=== PATIENT | female | born 1945 | race Hispanic/Latino ===

== ENCOUNTER 2019-02-16 15:32 | Emergency (ER) | payer MEDICARE ==
[~2019-02-16] VITALS: Ht 162.6 cm; Wt 59.0 kg
[2019-02-16 16:31] LABS: BASOPHILS % 0.5 % (0.0-1.0); EOSINOPHILS # (AUTO) 0.2 (0.0-0.4); HEMATOCRIT 27.6 % (34.2-44.1); HEMOGLOBIN 8.2 g/dL (12.0-16.0); LYMPHOCYTES # (AUTO) 1.2 (1.0-3.2); LYMPHOCYTES % 21.9 % (18.0-39.1); MEAN CORPUSCULAR HEMOGLOBIN 21.1 pg (28-32); MEAN CORPUSCULAR HGB CONC 29.7 g/dL (31-35); MEAN CORPUSCULAR VOLUME 71.1 fL (81-99); MONOCYTES # (AUTO) 0.4 (0.2-0.8); MONOCYTES % 6.9 % (4.4-11.3); NEUTROPHILS # (AUTO) 3.6 (2.1-6.9); NEUTROPHILS % 66.3 % (38.7-80.0); PLATELET COUNT 170 x10e3/uL (140-360); RED BLOOD COUNT 3.88 x10e6/uL (3.6-5.1); RED CELL DISTRIBUTION WIDTH 18.6 % (11.7-14.4)
[2019-02-16 16:41] LABS: INR 2.04; PROTHROMBIN TIME 23.7 seconds (11.9-14.5)
[2019-02-16 16:42] LABS: PARTIAL THROMBOPLASTIN TIME 48.6 seconds (23.8-35.5)
[2019-02-16 16:49] LABS: ALBUMIN 3.9 g/dL (3.5-5.0); ANION GAP 13.6 mmol/L (8-16); CALCIUM 9.7 mg/dL (8.4-10.2); CREATININE, SERUM 1.02 mg/dL (0.57-1.11); POTASSIUM 4.6 mmol/L (3.5-5.1)
[2019-02-16] MEDS ORDERED: FERROUS SULFAT325 MG PO (17:00)
[2019-02-16 18:03] VITALS: BP 124/69
== END 2019-02-16 18:05 | disposition home or self-care (01) ==
LOC: ER 15:32
DX: D50.0 Iron deficiency anemia secondary to blood loss (chronic) (principal); I10 Essential (primary) hypertension; E11.9 Type 2 diabetes mellitus without complications; Z95.810 Presence of automatic (implantable) cardiac defibrillator
CPT/HCPCS: 36415; 80053; 85025; 85610; 85730; 99283

== ENCOUNTER 2019-12-24 14:34 | Inpatient (IN) | payer MEDICARE, OTHER ==
[~2019-12-24] VITALS: Ht 162.6 cm; Wt 54.4 kg
[~2019-12-24 14:34] MED LIST: FERROUS SULFAT325 MG PO
[2019-12-24] MEDS ORDERED: SODIUM CHLORIDE 0.9% 1000ML 1,000 ML IV STA (14:56)
[2019-12-24] MEDS ORDERED: PANTOPRAZOLE 40 MG 10ML VIAL IV NR (15:00)
[2019-12-24] MEDS ORDERED: CEFTRIAXONE SOD 1 GM VIAL IV NR (15:00)
--- NOTE | 2019-12-24 15:06 | Emergency Department Note ---
History of Present Illnes History of Present Illness Chief Complaint: Abdominal Complaints History of Present Illness This is a 74 year old female hx of iron deficiency anemia due to probable IRON deficiency, on coudmadin for chf and afib, sent over from the GI Dr Li Katz clinic for looking pale. Patient denies throwing up blood or dark stool. She threw u her Ensure drinks on arrival Past Medical History Hypertension, Diabetes, CVA, A-Fib, Anemia, Hyperlipidemia Past Surgical History: Cholecystectomy, Pacer/AICD Other Surgery PACEMAKER VALVE REPLACEMENT UTERINE MASS . Historian: Patient, Family Member Arrival Mode: Car Crop Scout Required: No Onset (how long ago): day(s) Radiation: Reports non-radiation Severity: moderate Onset quality: gradual Duration (how long): day(s) Timing of current episode: intermittent Progression: waxing and waning Relieving factors: none Exacerbating factors: none Associated symptoms: Reports denies other symptoms Past Medical/Family History Physician Review I have reviewed the patient's past medical and family history. Any updates have been documented here. Past Medical History Recent Fever: No Clinical Suspicion of Infectio: No New/Unexplained Change in Ment: No Past Medical History: Hypertension, Diabetes, CVA, A-Fib, Anemia, Hyperlip edemia Past Surgical History: Cholecysctectomy, Pacer/AICD Other Surgery: PACEMAKER VALVE REPLACEMENT UTERINE MASS Social History Smoking Cessation: Never Smoker Any Illegal Drug Use: No Family History Family history of heart diseas: No Other Last Tetanus: UNKNOWN Any Pre-Existing Lines (PICC,: No Review of Systems Review of Systems Constitutional: Reports weakness EENTM: Reports no symptoms Cardiovascular: Reports no symptoms Respiratory: Reports no symptoms Gastrointestinal: Reports as per HPI, Reports abdominal pain, Reports nausea, Reports vomiting, Reports other Genitourinary: Reports no symptoms Musculoskeletal: Reports no symptoms Integumentary: Reports no symptoms Neurological: Reports no symptoms Psychological: Reports no symptoms Endocrine: Reports no symptoms Hematological/Lymphatic: Reports no symptoms Physical Exam Related Data Allergies: Coded Allergies: No Known Allergies (Unverified , 02/16/19) Physical Exam CONSTITUTIONAL Constitutional: Present well-developed, Present cachectic, Present diaphoretic, Present distressed, Present other (looks pale) HENT HENT: Present normocephalic, Present atraumatic, Present oropharynx clear/mo ist, Present mucosae dry, Present nose normal HENT L/R: Present left ext ear normal, Present right ext ear normal EYES Eyes: Reports PERRL, Reports conjunctivae normal NECK Neck: Present ROM normal PULMONARY Pulmonary: Present effort normal, Present breath sounds normal CARDIOVASCULAR Cardiovascular: Present regular rhythm, Present heart sounds normal, Present capillary refill normal, Present normal rate GASTROINTESTINAL Abdominal: Present soft, Present bowel sounds normal, Present tender, Present other (rectal exam: stool dark and occult blood test positive) GENITOURINARY Genitourinary: Present exam deferred, Present guaiac result (positive) SKIN Skin: Present warm, Present dry MUSCULOSKELETAL Musculoskeletal: Present ROM normal, Present other (wasted muscle) NEUROLOGICAL Neurological: Present alert, Present oriented x 3, Present no gross motor or sensory deficits PSYCHOLOGICAL Psychological: Present mood/affect normal, Present judgement normal Results Laboratory Lab results reviewed: Yes Laboratory comments hgb 3.8. anemia Critical Care Time Total Critical Care Time (min): 50 Time ED Physician saw patient: 15:20 Critical care time exclusive o: treating other patients Critcal care necessary due to: circulatory failure, shock, other (CC for severe anemia, hypovolemic shock, tx with IV Fluid, PPI, IV Rocephin, Vit K, blood transfusion. ) Critcal care time spent by me: develop tx plan w patient/surrogate, discussion w consultants, discussion w primary provider, evaluation patient response to tx, examination of patient, obtaining hx from patient/surrogate, order/perform tx or interventions, order/review laboratory studies, re-evaluation of patient condition, review of old charts Assessment & Plan Medical Decision Making MDM upper GI bleed, gastric ulcer vs vaginal spotting Reassessment Reassessment time: 17:02 Reassessment Blood pressure is low 87/48 Assessment & Plan Final Impression: (1) Hypovolemic shock (2) Abdominal pain (3) Anemia associated with acute blood loss (4) Microcytic anemia (5) Coagulopathy Depart Disposition: ADMITTED Home Meds Active Scripts Ferrous Sulfate (FERROUS SULFATE) 325 Mg Tablet, 325 MG PO DAILY for 30 Days, #30 Prov:MICHELLE SAMPSON DO 02/16/19 Physician Attestation Provider Attestation case discussed with Dr Roe and Dr Li Katz and CANDE Walker MD Dec 24, 2019 15:06
[2019-12-24] MEDS ORDERED: ONDANSETRON HCL INJ 2MG/ML 2ML 2 MG/ML VIAL ONE (16:18)
[2019-12-24] MEDS ORDERED: SODIUM CHLORIDE 0.9% 1000ML 1,000 ML ONE (16:19)
[2019-12-24] MEDS ORDERED: CEFTRIAXONE SOD 1 GM VIAL ONE (16:19)
[2019-12-24] MEDS ORDERED: PANTOPRAZOLE 40 MG 10ML VIAL ONE ×2 (16:19→16:32)
[2019-12-24 16:25] LABS: BASOPHILS % 0.3 % (0.0-1.0); EOSINOPHILS % 0.2 % (0.0-6.0); LYMPHOCYTES # (AUTO) 3.5 (1.0-3.2); LYMPHOCYTES % 28.8 % (18.0-39.1); MEAN CORPUSCULAR HEMOGLOBIN 21.6 pg (28-32); MEAN CORPUSCULAR HGB CONC 27.7 g/dL (31-35); MEAN CORPUSCULAR VOLUME 77.8 fL (81-99); MONOCYTES # (AUTO) 0.9 (0.2-0.8); MONOCYTES % 7.3 % (4.4-11.3); NEUTROPHILS # (AUTO) 7.6 (2.1-6.9); NEUTROPHILS % 62.5 % (38.7-80.0); PLATELET COUNT 355 x10e3/uL (140-360); RED BLOOD COUNT 1.76 x10e6/uL (3.6-5.1); RED CELL DISTRIBUTION WIDTH 24.1 % (11.7-14.4)
[2019-12-24] MEDS ORDERED: ONDANSETRON HCL INJ 2MG/ML 2ML 2 MG/ML VIAL IV PRN (16:30)
[2019-12-24 16:41] LABS: HEMATOCRIT 13.7 % (34.2-44.1); HEMOGLOBIN 3.8 g/dL (12.0-16.0)
--- NOTE | 2019-12-24 16:50 | NUR ---
REPORTED TO DR [facility] HGB 3.8 HCT 13.7
[2019-12-24] MEDS ORDERED: PHYTONADIONE 10 MG/ML AMP SQ ONE (17:00)
[2019-12-24] MEDS ORDERED: SODIUM CHLORIDE 0.9% 250ML 250 ML IV ONE ×3 (17:15→21:00)
[2019-12-24] MEDS ORDERED: DIPHENHYDRAMINE HCL INJ 50 MG/ML VIAL IV ONE (17:15)
[2019-12-24] MEDS ORDERED: ACETAMINOPHEN 325 MG TAB PO ONE (17:15)
[2019-12-24] MEDS ORDERED: FUROSEMIDE INJ 10 MG/ML 4 ML VIAL IV PRN (17:15)
[2019-12-24] MEDS ORDERED: SODIUM CHLORIDE FLUSH 10 ML SYR INJ PRN (17:15)
[2019-12-24] MEDS ORDERED: FUROSEMIDE INJ 10 MG/ML 2 ML VIAL IV ONE (17:15)
[2019-12-24 18:59] LABS: HEMATOCRIT 10.8 % (34.2-44.1); HEMOGLOBIN 3.1 g/dL (12.0-16.0)
--- NOTE | 2019-12-24 19:46 | NUR ---
blood transfusion started
--- NOTE | 2019-12-24 20:26 | NUR ---
tolerating transfusion
[2019-12-24] MEDS ORDERED: SODIUM CHLORIDE 0.9% 250ML 250 ML ONE ×3 (21:19→22:48)
--- NOTE | 2019-12-24 21:20 | NUR ---
2nd unit of blood started
[2019-12-24 21:55] LABS: PARTIAL THROMBOPLASTIN TIME 76.6 seconds (23.8-35.5)
[2019-12-24 21:57] LABS: INR 6.84; PROTHROMBIN TIME 64.6 seconds (11.9-14.5)
--- NOTE | 2019-12-24 22:10 | NUR ---
ANT TYLER, DR. CRAMER SPEAKING TO DR. Elías AMADOR TO CLARIFY ORDER FOR PLASMA; PER DR. CRAMER, ORDER FOR 2 JUMBO BAGS OF FFP TO BE ADMINISTERED FOR ELEVATED INR PER DR. Elías AMADOR. VERIFIED BY THIS RN
--- NOTE | 2019-12-24 23:07 | NUR ---
ffp finished. pt tolerated well
[2019-12-25] VITALS (9 sets, daily range): BP systolic 118–134; BP diastolic 57–73
--- NOTE | 2019-12-25 00:05 | NUR ---
ORDER CLARIFICATION-SPOKE WITH ATTENDING MOISE REGARDING ALL UNITS OF BLOOD TO BE GIVEN. 4 UNITS OF RBCS AND 2 JUMBO UNITS OF PLASMA.
[2019-12-25] MEDS ORDERED: SODIUM CHLORIDE 0.9% 250ML 250 ML ONE ×2 (00:06→04:59)
--- NOTE | 2019-12-25 00:59 | NUR ---
REPORT RECIEVED IN FULL FROM [facility]CO AT THIS TIME
[2019-12-25] MEDS ORDERED: PANTOPRAZOLE 40 MG 10ML VIAL IV STA (03:46)
--- NOTE | 2019-12-25 04:14 | NUR ---
PATIENT DEPARTED THIS ED AT 033
[2019-12-25] MEDS ORDERED: PANTOPRAZOLE 40 MG 10ML VIAL ONE (04:19)
[2019-12-25] MEDS ORDERED: PANTOPRAZOL 40MG/SOD CHL 0.9% 50 ML IV ONE (04:25)
[2019-12-25 05:24] LABS: FERRITIN 43.03 ng/mL (4.63-204.00)
[2019-12-25] MEDS: PANTOPRAZOLE INJ 40 MG in SODIUM CHLORIDE 0.9% 50ML 50 ML IV SCH ×4 (05:31→23:14)
[2019-12-25] MEDS ORDERED: DONNATAL/LIDOCAINE/MAALOX 30 ML SUSP PO ONE (05:45)
--- NOTE | 2019-12-25 06:21 | NUR ---
SPOKE WITH PATIENT'S DAUGHTER BHARGAVI AND ED BLOOD TRANSFUSIONS AND PLASMA AT THIS POINT AND THAT PER DR AMADOR THEY MIGHT DO AN EGD AND DAUGHTER STATES THAT THEY HAVE WANTED HER TO DO EGD FOR A WHILE DUE TO STOMACH PAINS AND THAT CARDIOLOGY AT [facility] WOULD NOT OK THE TEST. PT NORMAL CARDIO DR IS DR. BLAKE TROTTER ED PT WOULD HAVE TO GET CARDIO HERE TO CLEAR HER. ED DAUGHTER ABOUT PT HOME COUMADIN AND THEY CAN'T MISS CHECKING IT. ED PROTONIX DRIP, VIT K AND LAB RECHECK AT 11 AM. DAUGHTER WANTS CALLED ABOUT LABS AND ANY PROCEDURES. WILL CONT TO MONITOR. UPDATED MED LIST PER DAUGHTER'S LIST.
[2019-12-25] MEDS ORDERED: COUMADIN7.5 MG PO (06:43)
[2019-12-25] MEDS ORDERED: LANTUS 3ML100 UNITS/ SC (06:44)
[2019-12-25] MEDS ORDERED: COUMADIN5 MG PO (06:44)
[2019-12-25] MEDS ORDERED: METOPROLOL SUCC25 MG PO (06:48)
[2019-12-25] MEDS ORDERED: OMEPRAZOLE40 MG PO (06:48)
[2019-12-25] MEDS ORDERED: LIPITOR20 MG PO (06:48)
[2019-12-25] MEDS ORDERED: LASIX40 MG PO (06:48)
[2019-12-25] MEDS ORDERED: ASPIRIN CHEW81 MG PO (06:48)
[2019-12-25] MEDS ORDERED: CALCET TABLET1 EACH (06:48)
[2019-12-25] MEDS ORDERED: METFORMIN HCL500 M2 PO (06:48)
[2019-12-25] MEDS ORDERED: LEXAPRO10 MG PO (06:48)
[2019-12-25] MEDS ORDERED: CYMBALTA20 MG PO (06:48)
--- NOTE | 2019-12-25 06:58 | NUR ---
ATTEMPTED MULTIPLE TIMES TO CALL DR LOZANO OFFICE AND NO ANSWER WITH JUST A BUSY SIGNAL AND TRIED HER CELL PHONE AND WENT TO BUT VM BOX IS FULL SO UNABLE TO LEAVE A MESSAGE.
[2019-12-25] MEDS ORDERED: PANTOPRAZOLE 40 MG 10ML VIAL IV SCH (09:00)
[2019-12-25 09:30] LABS: MEAN CORPUSCULAR HEMOGLOBIN 25.3 pg (28-32); MEAN CORPUSCULAR HGB CONC 32.3 g/dL (31-35); MEAN CORPUSCULAR VOLUME 78.5 fL (81-99); PLATELET COUNT 177 x10e3/uL (140-360); RED BLOOD COUNT 2.37 x10e6/uL (3.6-5.1); RED CELL DISTRIBUTION WIDTH 18.8 % (11.7-14.4)
[2019-12-25 09:38] LABS: HEMATOCRIT 18.6 % (34.2-44.1)
[2019-12-25 09:45] LABS: ANION GAP 17.6 mmol/L (8-16); CALCIUM 8.2 mg/dL (8.4-10.2); CREATININE, SERUM 1.37 mg/dL (0.57-1.11); POTASSIUM 4.6 mmol/L (3.5-5.1)
[2019-12-25 10:46] LABS: BASOPHILS % 0.5 % (0.0-1.0); EOSINOPHILS # (AUTO) 0.1 (0.0-0.4); EOSINOPHILS % 1.2 % (0.0-6.0); HEMATOCRIT 23.1 % (34.2-44.1); HEMOGLOBIN 7.5 g/dL (12.0-16.0); LYMPHOCYTES # (AUTO) 0.9 (1.0-3.2); LYMPHOCYTES % 20.1 % (18.0-39.1); MEAN CORPUSCULAR HEMOGLOBIN 25.5 pg (28-32); MEAN CORPUSCULAR HGB CONC 32.5 g/dL (31-35); MEAN CORPUSCULAR VOLUME 78.6 fL (81-99); MONOCYTES # (AUTO) 0.4 (0.2-0.8); MONOCYTES % 10.2 % (4.4-11.3); NEUTROPHILS # (AUTO) 2.9 (2.1-6.9); NEUTROPHILS % 66.6 % (38.7-80.0); PLATELET COUNT 173 x10e3/uL (140-360); RED BLOOD COUNT 2.94 x10e6/uL (3.6-5.1); RED CELL DISTRIBUTION WIDTH 17.6 % (11.7-14.4)
[2019-12-25 11:12] LABS: ALBUMIN 3.1 g/dL (3.5-5.0); CREATININE, SERUM 1.26 mg/dL (0.57-1.11)
[2019-12-25 11:20] LABS: INR 1.78; PROTHROMBIN TIME 21.8 seconds (11.9-14.5)
[2019-12-25 11:28] LABS: BAND NEUTROPHILS % (MANUAL) 3 %; LYMPHOCYTES % (MANUAL) 18 % (19-48); MONOCYTES % (MANUAL) 6 % (3.4-9.0); NEUTROPHILS % (MANUAL) 73 % (40-74)
--- NOTE | 2019-12-25 12:19 | History and Physical ---
HISTORY OF PRESENT ILLNESS: Ms. Gamboa is a 74-year-old female with history of atrial fibrillation, cardiac pacemaker, diabetes, CVA, hypertension, hyperlipidemia, depression, who apparently went to see the GI doctor. She looked pale. They did a CBC. She looks to be very anemic, so she was sent to the emergency room. PAST MEDICAL HISTORY: She has history of atrial fibrillation, cardiac pacemaker, diabetes type 2, CVA, hypertension, hyperlipidemia, and depression. ALLERGIES: NO KNOWN DRUG ALLERGIES. PAST SURGICAL HISTORY: She had permanent pacemaker placed. She had a valve replacement. She had a uterine mass. SOCIAL HISTORY: She does not smoke and she does not drink. She lives at home with her family today. PHYSICAL EXAMINATION: GENERAL: Today, she is awake and alert. She is feeling a little better. Otherwise, she said, she was feeling very weak. VITAL SIGNS: Temperature is 98.5, blood pressure is 132/73. HEART: Irregularly irregular. LUNGS: Poor inspiratory effort. ABDOMEN: Soft. LABORATORY DATA: On the blood work; hemoglobin 3.1, hematocrit 10.8. The ones from today are pending. The coronavirus is pending. ASSESSMENT: 1. Hypovolemic shock. 2. Severe anemia due to blood loss. 3. Coagulopathy. 4. History of atrial fibrillation. 5. Permanent pacemaker. 6. Diabetes type 2 with hyperglycemia. 7. History of cerebrovascular accident. 8. Hyperlipidemia. 9. Hypertension. 10. Depression. PLAN: At the present time, with this patient, to continue to monitor CBC closely. Hold anticoagulation. She received fresh frozen plasma. She also received 4 units of packed red blood cells. Continue to monitor hemoglobin and hematocrit. Continue to monitor electrolytes. We placed a GI consult with Dr. Doug Katz. Critical care consult with Dr. Beck. 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 All this was discussed in extension with the patient. All questions were answered to satisfaction. MD CAMILLE Burgos/GLENN /[id number]
--- NOTE | 2019-12-25 18:15 | Consultation ---
DATE OF CONSULTATION: 12/25/2019 PULMONARY CRITICAL CARE CONSULTATION: CHIEF COMPLAINT: Anemia and heart disease. HISTORY OF PRESENT ILLNESS: The patient is a 74-year-old woman. She has a complicated cardiac history. She has a bioprosthetic mitral valve. She also has a bioprosthetic aortic valve that was placed with a TAVR procedure in 2019. She has decreased ejection fraction of 40% to 45%. She takes warfarin on a regular basis at home. Apparently, she went to see the GI doctor and was found to be pale and weak. She had a hemoglobin of 3.8. She required admission to the hospital and was received 4 units of blood. Her hemoglobin is now 7.5. She is possibly scheduled for endoscopy, although she is awaiting Cardiology clearance. PAST SURGICAL HISTORY: 1. Status post mitral valve replacement. 2. Status post bioprosthetic aortic valve. 3. Status post pacemaker. 4. Prior hysterectomy. PAST MEDICAL HISTORY: 1. Atrial fibrillation. 2. Chronic systolic congestive heart failure. 3. Diabetes. 4. Depression. 5. Hypertension. ALLERGIES: NO KNOWN DRUG ALLERGIES. SOCIAL HISTORY: The patient does not smoke or drink. REVIEW OF SYSTEMS: She has no headache. She is not complaining of fever or chest pain. There is no abdominal pain, nausea, or vomiting. She has no known bleeding. PHYSICAL EXAMINATION: VITAL SIGNS: The blood pressure is 134/58 and pulse is 63. HEENT: No facial swelling or erythema. CARDIAC: Regular rate and rhythm with a prosthetic 2nd heart sound. LUNGS: Auscultation of lungs reveals decreased breath sounds at the bases. There is no wheezing. ABDOMEN: Soft, nontender. There is no rebound or guarding. EXTREMITIES: There is no leg edema or calf tenderness. There is no cyanosis or clubbing. SKIN: No rashes. NEUROLOGICAL: The patient seems to be diffusely weak. LABORATORY DATA: BUN to creatinine ratio is 79-1.36. Other electrolytes are within normal limits. Total bilirubin is 1.5. Albumin is 3.1. Hemoglobin is 7.5, white blood cell count is 4.33. The platelet count is 173. IMPRESSION: 1. Anemia secondary to chronic blood loss. 2. Chronic systolic congestive heart failure. 3. Chronic atrial fibrillation. 4. Prosthetic mitral valve. 5. Prior cerebrovascular accident. 6. Diabetes. PLAN: 1. Continue to monitor blood counts and coag studies. Transfuse additional blood or FFP as needed. 2. Await additional input from Cardiology. She will need to be restarted on heparin as soon as possible because of her bioprosthetic valve. 3. Consider endoscopic evaluation by GI. 4. Monitor and control blood sugars. 5. Dr. Beck will return tomorrow and will take over for any Pulmonary Critical Care needs. Jamie Edward MD [facility]/MODL /[id number]
--- NOTE | 2019-12-25 19:00 | NUR ---
reports received from previous nurse Remedios RN, she talked to dr Reyez and dr Li roque, including the reports, Echo order was cancelled, patient is on Full liquid diet until midnight.
--- OUTSIDE RECORDS SUMMARY | 2019-12-25 20:47 | XMS REPORT | Summary of Care ---
Author Author [facility] Organization [facility] Address Unknown Phone Unavailable Encounter CONTRERAS Gray(FIN) [id number] Date(s): 04/03/18 - 04/03/18 [facility] [address] [id number]- Discharge Disposition: Home or Self Care Attending Physician: Mohini Dee MD Vital Signs Most recent to 1 oldest [Reference Range]: Height 160.02 cm (04/03/18 10:53 AM) Temperature Oral 98.0 DegF [96.4-99.1 DegF] (04/03/18 10:53 AM) Blood Pressure 122/64 mmHg [90-140/60-90 mmHg] (04/03/18 10:53 AM) Respiratory Rate 14 BRMIN [14-20 BRMIN] (04/03/18 10:53 AM) Peripheral Pulse 60 bpm Rate [60-100 bpm] (04/03/18 10:53 AM) Weight 63.239 kg (04/03/18 10:53 AM) Body Mass Index 24.7 m2 (04/03/18 10:53 AM) Problem List Condition Effective Dates Status Health Status Informan t Acute cystitis1 07/13/13 Resolved Anemia2 01/04/14 Active Anemia(Confirmed) Active Aortic valve 12/03/14 Active stenosis(Confirmed)3 Bleeding skin4 12/07/14 Active Atrial fibrillation, Active chronic(Confirmed) 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(Confirmed) CVA (cerebral Resolved vascular accident)(Confirmed) Dental abscess5 10/13/13 Resolved Diabetes(Confirmed) Resolved Bilateral leg Active edema(Confirmed) Essential 05/27/59 Active hypertension(Confirm ed)6 H/O: CVA(Confirmed)7 05/27/59 Active H/O mitral valve Active replacement(Confirme d) Hypertension(Confirm Resolved ed) Insomnia8 03/09/14 Active Insomnia(Confirmed) Resolved Left 04/28/14 Active hemiparesis(Confirme d)9 Major depressive 03/09/14 Active disorder(Confirmed)1 0 Mitral valve 01/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)1 1 Hyperlipemia, Active mixed(Confirmed) [id number] 03/09/14 Active Osteoarthritis(Confi Active rmed) Postmenopausal 09/01/13 Active state13 Screening - health 08/17/14 Resolved check14, 15 Type 2 diabetes 05/27/59 Active mellitus(Confirmed)1 6 Urinary 03/03/13 Active [id number] Urinary tract 04/28/14 Resolved infectious [id number] On warfarin Active therapy(Confirmed) 1Data migrated from [employer] on 12/11/14. 2Data migrated from [employer] on 10/23/14. 3Data migrated from [employer] on 12/29/14. 4Data migrated from [employer] on 12/29/14. 5Data migrated from [employer] on 12/11/14. 6Data migrated from [employer] on 10/23/14. 7Data migrated from [employer] on 10/23/14. 8Data migrated from [employer] on 10/23/14. 9Data migrated from [employer] on 10/23/14. 10Data migrated from [employer] on 10/23/14. 11Data migrated from [employer] on 10/23/14. 12Data migrated from [employer] on 10/23/14. 13Data migrated from [employer] on 10/23/14. 14Data migrated from [employer] on 12/01/14. 15Data migrated from [employer] on 10/26/14. 16Data migrated from [employer] on 10/23/14. 17Data migrated from [employer] on 10/23/14. 18Data migrated from [employer] on 12/11/14. Allergies, Adverse Reactions, Alerts No Known Medication Allergies Medications No Known Medications Results No data available for this section Immunizations Given and Recorded Vaccine Date Status Refusal Reason influenza virus vaccine, inactivated 02/18/18 G iven influenza virus vaccine, inactivated1 04/03/17 Given influenza virus vaccine, inactivated 03/01/16 G iven influenza virus vaccine, inactivated2 03/09/14 Given influenza virus vaccine, inactivated3 03/03/13 Given influenza virus vaccine, inactivated 07/09/08 G iven pneumococcal 23-valent vaccine4 09/01/13 Given Not Given Vaccine Date Status Refusal Reason pneumococcal 13-valent vaccine 02/26/18 Not Given Patient Refuses 1Result Comment: Patient waited 15 min with no reaction 2Result Comment: fluzone high dose [[id number]]. Migrated from OBS ; Data migrated from [employer] on 06/28/2015. 3Result Comment: fluzone (>3 yrs.) [[id number]]. Migrated from OBS ; Data migrated from [employer] on 06/28/2015. 4Result Comment: pneumovax 23 [[id number]]. Migrated from OBS VIS: Pneumovax 23: 03/01/09 ; Data migrated from [employer] on 06/28/2015. Procedures Procedure Date Related Diagnosis Body Site Status Diabetic retinopathy screening1 02/08/17 Comple pita Mitral valve operation2 2011 Completed Cardiac pacemaker procedure Completed Cholecystectomy Completed Operation on uterus3 Completed 1Barcacel, OD 2replacement at [facility] 3tumor removed Social History Social History Type Response Substance Abuse Use: None. Alcohol Never Smoking Status Never smoker; Exposure to T obacco Smoke None; Cigarette Smoking Last 365 Days Yes; Reg Smoking Cessation National Secretary ing No entered on: 09/03/18 Assessment and Plan No data available for this section
--- OUTSIDE RECORDS SUMMARY | 2019-12-25 20:47 | XMS REPORT | Continuity of Care Document ---
Author Author Arcadio Conformity KAREN Doty Organization [employer] Address Unknown Phone Unavailable Care Team Providers Care Service Aide Name Role Phone [employer] Unavailable Un available Problems Problem Status Onset Date Classification Date Reported Comments Source R05 - COUGH Active 10/05/2019 [facility] [place] ACUTE EXACERBATION OF CHF, CHEST PAIN Active 07/06/2019 [facility] SOB Active 0 07/06/2019 [facility] Z95.2 Active 04/30/2019 [facility] PREADMIT / TAVR / MAC / TTE Ac tive 04/14/2019 [facility] PREADMIT/TAVR W/ SENTINEL/ MAC/TTE Active 03/23/2019 [facility] AORTIC STENOSIS Active 03/20/2019 [facility] LT HEART CATH, FEMORAL APPROACH Active 03/04/2019 [facility] Unspecified injury of head, initial encounter 01/30/2019 02/01/2019 [facility] FALL Active 01/30/2019 [facility] Paresthesia of skin 03/05/2018 09/15/2018 [facility] WEAKNESS Active 02/25/2018 [facility] GENERAL WEAKNESS, PARESTHESIAS/NUMBNESS Active 02/25/2018 [facility] SCREENING Active 04/05/2017 [facility] Bleeding skin (finding) Active 12/07/2014 Problem 12/20/2019 Data migrated from [employer] on . [facility] ,[facility] [place] Aortic valve stenosis (disorder) Active 12/03/2014 Problem 12/20/2019 Data migrated from [place] [facility] . [facility] ,[facility], [facility] [place] FEVER/VOMITTING Active 11/28/2014 [facility] ACUTE CHF EXACERBATION Active 11/28/2014 [facility] Screening - health check (procedure) Resolved 08/17/2014 Problem 12/20/2019 Data migrated from [employer] [facility] . Data migrated from [employer] on 10/26/14. [facility], [facility] [place] Left hemiparesis (disorder) Ac tive 04/28/2014 Problem 12/20/2019 Data migrated from [employer] on 10/23. [facility] ,[facility], [facility] [place] Urinary tract infectious disease (disorder) Resolved 04/28/2014 Problem 12/20/2019 Data migrated from [employer] on 12/11/14. [facility] ,[facility], [facility] [place] Insomnia (disorder) Active 03/09/2014 Problem 12/20/2019 Data migrated from [employer] on 10/23. [facility] ,[facility], [facility] [place] Major depressive disorder (disorder) Active 03/09/2014 Problem 12/20/2019 Data migrated from [employer] on 10/23. [facility] ,[facility], [facility] [place] Osteoarthritis (disorder) Acti ve 03/09/2014 Problem 12/20/2019 Data migrated from [employer] on 10/23. [facility] ,[facility], [facility] [place] Replacement of mitral valve (procedure) Active 03/09/2014 Problem 12/04/2014 12Data migrated fro m [employer] on 10/23/14. [facility] Anemia (disorder) Active 01/04/2014 Problem 12/20/2019 Data migrated from [employer] on 10/23. [facility] ,[facility], [facility] [place] Dental abscess (disorder) Reso lved 10/13/2013 Problem 12/20/2019 Data migrated from [employer] on 12/11. [facility] ,[facility], [facility] [place] V49.81ASYMPTOMATIC MENOPAUSAL STATE Active 09/03/2013 [facility] Postmenopausal state (finding) Active 09/01/2013 Problem 12/20/2019 Data migrated from [employer] on 10/23. [facility] ,[facility], [facility] [place] Acute cystitis (disorder) Reso lved 07/13/2013 Problem 12/20/2019 Data migrated from [employer] on 12/11. [facility] ,[facility], [facility] [place] Urinary incontinence (finding) Active 03/03/2013 Problem 12/20/2019 Data migrated from [employer] on 10/23. [facility] ,[facility], [facility] [place] Mitral valve stenosis (disorder) Active 01/20/2013 Problem 12/20/2019 Data migrated from [employer] on 10/23. [facility] ,[facility], [facility] [place] Atrial fibrillation (disorder) Active 01/20/2013 Problem 12/04/2014 2Data migrated from [employer] on 09/26 . [facility] ABNORMAL LABS Active 10/03/2012 [facility] ABDOMEN PAIN Active 09/04/2012 [facility] V76.51/V72.83/564.00/789.06 Ac tive 02/23/2011 [facility] UNK Active 0 02/23/2011 [facility] ROUTINE Active 02/02/2011 [facility] Essential hypertension (disorder) Active 05/27/1959 Problem 12/20/2019 Data migrated from [employer] on 10/23. [facility] ,[facility], [facility] [place] History of - CVA (context-dependent category) Active 05/27/1959 Problem 12/20/2019 Data migrated from [employer] on 10/23/14. [facility] ,[facility], [facility] [place] Diabetes mellitus type 2 (disorder) Active 05/27/1959 Problem 12/20/2019 Data migrated from [employer] on 10/23. [facility] ,[facility], [facility] [place] Hyperlipidemia (disorder) Acti ve 05/27/1959 Problem 12/04/2014 5Data migrated from [employer] on 09/26 . [facility] Chronic atrial fibrillation (disorder) Active Problem [facility], [facility] [place] Cerebrovascular accident (disorder) Resolved Problem [facility], [facility] [place] Diabetes mellitus (disorder) R esolved Problem [facility], [facility] [place] History of mitral valve replacement (situation) Active Problem 12/20/2019 [facility] [place] Hypertensive disorder, systemic arterial (disorder) Resolved Problem 12/20/2019 [facility], [facility] [place] Mixed hyperlipidemia (disorder) Active Problem [facility] [place] Warfarin therapy started (regime/therapy) Active Problem 12/20/2019 [facility], [facility] [place] Encounter for screening mammogram for ma lignant neoplasm of breast 05/17/2017 [facility] 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) Active Prob leah 12/20/2019 [facility] [place] Edema of lower extremity (finding) Active Problem [facility], [facility] [place] Final: 12/04/2014 [facility] 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 09/15/2018 [facility] Hypertensive heart disease with heart failure 09/15/2018 [facility] Chronic combined systolic (congestive) a nd diastolic (congestive) heart failure 09/15/2018 [facility] Presence of cardiac pacemaker 09/15/2018 [facility] Presence of prosthetic heart valve 09/15/2018 [facility] Type 2 diabetes mellitus without complications 09/15/2018 [facility] Chronic atrial fibrillation 09/15/2018 [facility] Hypothyroidism, unspecified 09/15/2018 [facility] Mixed hyperlipidemia 09/15/2018 [facility] Major depressive disorder, single episode, unspecified 09/15/2018 [facility] Rheumatic disorders of both mitral and aortic valves 09/15/2018 [facility] Unspecified osteoarthritis, unspecified site 09/15/2018 [facility] dominatrix (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 09/15/2018 [facility] longterm (current) use of anticoagulants 09/15/2018 [facility] longterm (current) use of aspirin 09/15/2018 [facility] Other skilled nursing (current) drug therapy 09/15/2018 [facility] CHF NOS Active [facility] HEART FAILURE, UNSPECIFIED Act kash [facility] CHEST PAIN, UNSPECIFIED Active [facility] Medications Medication Details Route Status Patient Instructions Ordering Provider Order Date Source Warfarin Notes: Nurse to ur e documentation of patient education per anticoagulation policy. Avoid large intake of vitamin-K containing foods diet. (Same As: Coumadin) WASTE: F/P - P Waste Black; E - P Waste Black Hazardous Drug Group 3:Reproductive risk Hazardous Drug -- Refer to safe handling procedure PPE Matrix No Longer Active 07/08/2019 [facility] Furosemide 40 mg, Route: IVP, Drug form: INJ, Daily, Dosing Weight 60.909, kg, Start date: 07/08/19 9:00:00 CONDITIONING MACHINE OPERATOR, Duration: 30 day, Stop date: 08/06/19 9:00:00 CDT No Longer Active 07/08/2019 [facility] 3 ML Insulin Glargine 100 UNT/ML Prefill ed Syringe [Lantus] Notes: (Same as: Lantus) Do not hold ins ulin without contacting prescriber WASTE: F/P - Black; E - Municipal Trash Bin "single patient use only" Stable for 28 days at room temperature Expires in days from Date Inactive 07/08/2019 [facility] latanoprost ophthalmic Notes: Keep refrigerated. (Same as:Xalatan) Opened bottle may be stored at room temperature for 6 weeks Inactive 07/08/2019 [facility] Warfarin 6 mg, 3 tab, Route: P O, Drug form: TAB, Q5PM, Dosing Weight 60.909, kg, Start date: 07/07/19 17:00:00 CONDITIONING MACHINE OPERATOR, Duration: 1 doses or times, Stop date: 07/07/19 17:00:00 CONDITIONING MACHINE OPERATOR, 0 Inactive 07/07/2019 [facility] Furosemide Notes: (Same as: Toya merino) MEDICATION WASTE Product Size: 40 mg Product Wasted: ___ mg Inactive 07/07/2019 [facility] travoprost 0.04 MG/ML Ophthalmic Solution [Travatan] 1 drp, Route: OPTH, Drug Form: SOLN, Dosing Weight 60.909, kg, QPM, Start date: 07/07/19 17:00:00 CONDITIONING MACHINE OPERATOR, Duration: 30 day, Stop date: 08/05/19 17:00:00 CDT Inactive 07/07/2019 [facility] Potassium Chloride Notes: (Gavino e as: K-Dur 20) "Do Not Crush" Give with food and full glass of water For patients unable to swallow tablet, dissolve in one half glass of water. Allow about 2 minutes for the tab lets to disintegrate. Stir before giving to prepare slurry and administer. Please exclude Patients with feeding tube less than 14 Prydeinig (Dobhoff, J-tube etc) and pediatric and patients. Inactive 07/07/2019 [facility] Magnesium Sulfate Notes: WASTE : F/P - Sink; E - Municipal Trash Bin Inactive 07/07/2019 [facility] Saline Flush 0.9% Notes: (Same as: BD Posiflush) Inactive 07/07/2019 [facility] atorvastatin Notes: (Same As: Lipitor) Inactive 07/07/2019 [facility] Calcium Carbonate 1500 MG / Cholecalcife rol 400 UNT Oral Tablet Notes: (Same As: Michael-D, OsCal-D, Oyste r Calcium) Inactive 07/07/2019 [facility] Digoxin 0.125 MG Oral Tablet N otes: Take on an Empty Stomach (Same as: Lanoxin) Inactive 07/07/2019 [facility] Escitalopram Notes: (Same as: Lexapro) Inactive 07/07/2019 [facility] ferrous sulfate Notes: Give wi th food. "Do Not Crush" Inactive 07/07/2019 [facility] Losartan Notes: (Same as: Coza ar) Inactive 07/07/2019 [facility] metoprolol tartrate Notes: (Sa me as: Lopressor) Inactive 07/07/2019 [facility] Omeprazole 40 mg, 1 cap, Route : PO, Drug form: DRC, Daily, Dosing Weight 60.909, kg, Start date: 07/07/19 9:00:00 CONDITIONING MACHINE OPERATOR, Duration: 30 day, Stop date: 08/05/19 9:00:00 CDT Inactive 07/07/2019 [facility] prednisolone Notes: (Same as: Pred Forte) Inactive 07/07/2019 [facility] Protonix Notes: Tablet should not be chewed or crushed. (Same as: Protonix) Inactive 07/07/2019 [facility] Aspirin 81 MG Enteric Coated Tablet Notes: Do not crush or chew. (Same As: Ecotrin) Inactive 07/07/2019 [facility] Lasix Notes: (Same as: Lasix) MEDICATION WASTE Product Size: 40 mg Product Wasted: ___ mg Inactive 07/07/2019 [facility] Dextrose 50% Syringe (D50W) 12 .5 gm, 25 mL, Route: IVP, Drug Form: INJ, Dosing Weight 60.909, kg, PRN, PRN Blood Glucose Results, Start date: 07/07/19 4:11:00 CONDITIONING MACHINE OPERATOR, Duration: 30 day, Stop date: 08/06/19 5:10:00 CDT, 0 Inactive 07/07/2019 [facility] Glucagon 1 mg, Route: IM, Drug form: PDR/INJ, PRN, Dosing Weight 60.909, kg, PRN Blood Glucose Results, Start date: 07/07/19 4:11:00 CONDITIONING MACHINE OPERATOR, Duration: 30 day, Stop date: 08/06/19 5:10:00 CDT, 0 Inactive 07/07/2019 [facility] Insulin Lispro Notes: (Same as : Humalog) Roll in palms of hands gently; Do not shake vigorously. WASTE: F/P - Black; E - Municipal Trash Bin Stable for 28 days at room temperature. Expires in days from Date Inactive 07/07/2019 [facility] Nitroglycerin Notes: (Same as: Nitroquick, Nitrostat) "Do Not Crush" Sublingual tablet Inactive 07/07/2019 [facility] Saline Flush 0.9% Notes: (Same as: BD Posiflush) Inactive 07/07/2019 [facility] Lovenox Notes: Nurse to ensure documentation of patient education per anticoagulation policy. (Same as: Lovenox) Inactive 05/02/2019 [facility] Coumadin Notes: Nurse to ensur e documentation of patient education per anticoagulation policy. Avoid large intake of vitamin-K containing foods diet. (Same As: Coumadin) WASTE: F/P - P Waste Black; E - P Waste Black Inactive 05/01/2019 [facility] travoprost 0.04 MG/ML Ophthalmic Solution [Travatan] 1 drp, Route: OPTH, Drug Form: SOLN, Dosing Weight 60.455, kg, QPM, Start date: 05/01/19 17:00:00 CONDITIONING MACHINE OPERATOR, Duration: 30 day, Stop date: 05/30/19 17:00:00 CONDITIONING MACHINE OPERATOR No Longer Active 05/01/2019 [facility] POLYETHYLENE GLYCOL 3350 Notes : Dissolve in 8 oz of water or juice. (Same as: Miralax) Inactive 05/01/2019 [facility] nter metoprolol extended release No teresa: (Same as: Toprol XL) Do Not Crush Inactive 05/01/2019 [facility] Aspirin 81 MG Enteric Coated Tablet Notes: Do not crush or chew. (Same As: Ecotrin) Inactive 05/01/2019 [facility] nter atorvastatin Notes: (Same As: Lipitor) Inactive 05/01/2019 [facility] Digoxin 0.125 MG Oral Tablet N otes: Take on an Empty Stomach (Same as: Lanoxin) Inactive 05/01/2019 [facility] nter Escitalopram Notes: (Same as: Lexapro) Inactive 05/01/2019 [facility] ferrous sulfate Notes: Give wi th food. "Do Not Crush" Inactive 05/01/2019 [facility] Losartan Notes: (Same as: Coza ar) Inactive 05/01/2019 [facility] Omeprazole 40 mg, Route: PO, D rug form: DRC, Daily, Dosing Weight 60.455, kg, Start date: 05/01/19 9:00:00 CONDITIONING MACHINE OPERATOR, Duration: 30 day, Stop date: 05/30/19 9:00:00 CONDITIONING MACHINE OPERATOR No Longer Active 05/01/2019 [facility] nter Warfarin Route: PO, Drug form: TAB, Q-M-W-F, Dosing Weight 60.455, kg, Start date: 05/01/19 9:00:00 CONDITIONING MACHINE OPERATOR, Duration: 30 day, Stop date: 05/29/19 9:00:00 CONDITIONING MACHINE OPERATOR No Longer Active 05/01/2019 [facility] nter prednisolone Notes: (Same as: Pred Forte) Inactive 05/01/2019 [facility] Insulin Glargine 15 unit, 0.15 mL, Route: SUB-Q, Drug form: SOLN, Daily, Dosing Weight 60.455, kg, Start date: 05/01/19 9:00:00 CONDITIONING MACHINE OPERATOR, Duration: 30 day, Stop date: 05/30/19 9:00:00 CONDITIONING MACHINE OPERATOR, 0 Inactive 05/01/2019 [facility] Protonix Notes: Tablet should not be chewed or crushed. (Same as: Protonix) Inactive 05/01/2019 [facility] Furosemide 40 MG Oral Tablet N otes: (Same as: Lasix) May cause GI upset. Give with food or milk. Inactive 05/01/2019 [facility] nter 24 HR Metoprolol Tartrate 25 MG Extended Release Tablet [Toprol] Notes: (Same as: Toprol XL) Do Not Crush Inactive 05/01/2019 [facility] nter Acetaminophen Notes: Do not ex ceed 4 gm/day. (Same as: Tylenol) Inactive 05/01/2019 [facility] ceFAZolin (SCIP) + sterile water 10 mL Notes: (Same As: Ancef, Kefzol) MEDICATION WASTE Product Size: 1000 mg Product Wasted: ___ mg Inactive 05/01/2019 [facility] Docusate Notes: (Same as: Cola ce) (Do Not Crush) No Longer Active 05/01/2019 [facility] latanoprost ophthalmic Notes: Keep refrigerated. (Same as:Xalatan) Opened bottle may be stored at room temperature for 6 weeks No Longer Active 05/01/2019 [facility] Warfarin Notes: Nurse to ensur e documentation of patient education per anticoagulation policy. Avoid large intake of vitamin-K containing foods diet. WASTE: F/P - P Waste Black; E - P Waste Black (Same As: Coumadin) Inactive 05/01/2019 [facility] Lovenox Notes: Nurse to ensure documentation of patient education per anticoagulation policy. (Same as: Lovenox) Inactive 05/01/2019 [facility] Dextrose 50% Syringe (D50W) 12 .5 gm, 25 mL, Route: IVP, Drug Form: INJ, Dosing Weight 60.455, kg, PRN, PRN Blood Glucose Results, Start date: 04/30/19 17:59:00 CONDITIONING MACHINE OPERATOR, Duration: 30 day, Stop date: 05/30/19 17:58:00 CONDITIONING MACHINE OPERATOR, 0 No Longer Active 04/30/2019 [facility] Glucagon 1 mg, Route: IM, Drug form: PDR/INJ, PRN, Dosing Weight 60.455, kg, PRN Blood Glucose Results, Start date: 04/30/19 17:59:00 CONDITIONING MACHINE OPERATOR, Duration: 30 day, Stop date: 05/30/19 17:58:00 CONDITIONING MACHINE OPERATOR, 0 No Longer Active 04/30/2019 [facility] Insulin Lispro Notes: (Same as : Humalog) Roll in palms of hands gently; Do not shake vigorously. WASTE: F/P - Black; E - Municipal Trash Bin Stable for 28 days at room temperature. Expires in days from Date No Longer Active 04/30/2019 [facility] nter protamine (ANES) Route: IV, Dr ug form: INJ, ONCE, Stop date: 04/30/19 16:59:00 CONDITIONING MACHINE OPERATOR Inactive 04/30/2019 [facility] nter Hydralazine 10 mg, Route: IVP, Q20Min, Dosing Weight 60.455, kg, PRN Elevated BP, Start date: 04/30/19 16:58:00 CONDITIONING MACHINE OPERATOR, Duration: 2 doses or times, Stop date: Limited # of times Inactive 04/30/2019 [facility] nter Metoprolol 1 mg, Route: IVP, Q 5Min, Dosing Weight 60.455, kg, PRN Other -See Comment, Start date: 04/30/19 16:58:00 CONDITIONING MACHINE OPERATOR, Duration: 5 doses or times, Stop date: Limited # of times Inactive 04/30/2019 [facility] nter Oxycodone 5 mg, Route: NG, Honorio g form: LIQ, Q4H, Dosing Weight 60.455, kg, PRN Pain Score 4-6, Start date: 04/30/19 16:58:00 CONDITIONING MACHINE OPERATOR, Duration: 30 day, Stop date: 05/30/19 16:57:00 CONDITIONING MACHINE OPERATOR Inactive 04/30/2019 [facility] Hydromorphone 0.5 mg, Route: I ACTUARY, Q5Min, Dosing Weight 60.455, kg, PRN Pain Score 7-10, Start date: 04/30/19 16:58:00 CONDITIONING MACHINE OPERATOR, Duration: 4 doses or times, Stop date: Limited # of times Inactive 04/30/2019 [facility] nter Fentanyl 50 microgram, Route: IVP, Q5Min, Dosing Weight 60.455, kg, PRN Pain Score 7-10, Priority: Routine, Start date: 04/30/19 16:58:00 CONDITIONING MACHINE OPERATOR, Duration: 2 doses or times, Stop date: Limited # of times Inactive 04/30/2019 [facility] Flumazenil 0.2 mg, Route: IVP, PRN, Dosing Weight 60.455, kg, PRN Benzodiazepine Reversal, Initial dose, Start date: 04/30/19 16:58:00 CONDITIONING MACHINE OPERATOR, Duration: 30 day, Stop date: 05/30/19 16:57:00 CONDITIONING MACHINE OPERATOR Inactive 04/30/2019 [facility] Naloxone 0.4 mg, Route: IVP, Q 2MIN, Dosing Weight 60.455, kg, PRN Narcotic Reversal, Start date: 04/30/19 16:58:00 CONDITIONING MACHINE OPERATOR, Duration: 8 doses or times, Stop date: Limited # of times Inactive 04/30/2019 [facility] Ondansetron 4 mg, Route: IVP, ONCE, Dosing Weight 60.455, kg, PRN Nausea & Vomiting, Start date: 04/30/19 16:58:00 CONDITIONING MACHINE OPERATOR Inactive 04/30/2019 [facility] heparin (ANES) Route: IV, Drug form: INJ, ONCE, Stop date: 04/30/19 16:43:00 CONDITIONING MACHINE OPERATOR Inactive 04/30/2019 [facility] phenylephrine (ANES) Route: IV , Drug form: INJ, ONCE, Stop date: 04/30/19 16:38:00 CONDITIONING MACHINE OPERATOR Inactive 04/30/2019 [facility] pantoprazole Notes: Tablet brinda uld not be chewed or crushed. (Same as: Protonix) N o Longer Active 04/30/2019 [facility] ceFAZolin (ANES) Route: IV, Dr ug form: INJ, ONCE, Stop date: 04/30/19 16:18:00 CONDITIONING MACHINE OPERATOR Inactive 04/30/2019 [facility] midazolam (ANES) Route: IV, Dr ug form: SOLN, ONCE, Stop date: 04/30/19 16:13:00 CONDITIONING MACHINE OPERATOR Inactive 04/30/2019 [facility] fentaNYL (ANES) Route: IV, Honorio g form: INJ, ONCE, Stop date: 04/30/19 16:13:00 CONDITIONING MACHINE OPERATOR Inactive 04/30/2019 [facility] Cefazolin Notes: (Same As: Anc ef, Kefzol) MEDICATION WASTE Product Size: 1000 mg Product Wasted: ___ mg Inactive 04/30/2019 [facility] propofol (ANES) 10 mg Route: I V, Drug form: INJ, Start date: 04/30/19 15:42:00 CONDITIONING MACHINE OPERATOR, Stop date: 04/30/19 16:42:00 CONDITIONING MACHINE OPERATOR Inactive 04/30/2019 [facility] Nicardipine Notes: Same as: Ca rdene Concentration: (0.2 mg /1 ml ) No Longer Active 04/30/2019 [facility] Acetaminophen Notes: Infuse ov er 15 minutes Do not exceed 4gm/day of acetaminophen MEDICATION WASTE Product Size: 1000 mg Product Wasted: ___ mg No Longer Active 04/30/2019 [facility] nter Ondansetron Notes: (Same as: Oseas heard) MEDICATION WASTE Product Size: 4 mg Product Wasted: ___ mg No Longer Active 04/30/2019 [facility] Sodium Chloride 0.9% (Bolus) IV 250 mL, 250 ml/hr, Infuse Over: 1 hr, Route: IV, 250, Drug form: INJ, ONCALL, Priority: Routine, Dosing Weight 61.364 kg, Start date: 04/30/19 10:00:00 CONDITIONING MACHINE OPERATOR, Duration: 1 doses or times, Stop date: 04/30/19 17:00:00 CONDITIONING MACHINE OPERATOR, 0 No Longer Active 04/30/2019 [facility] Sodium Chloride 0.9% IV 750 mL 750 mL, Rate: 75 ml/hr, Infuse over: 10 hr, Route: IV, Dosing Weight 61.364 kg, Total Volume: 750, Start date: 04/30/19 9:56:00 CONDITIONING MACHINE OPERATOR, Duration: 24 hr, Stop date: 05/01/19 9:55:00 CONDITIONING MACHINE OPERATOR, 1.68, m2, 0 No Longer Active 04/30/2019 [facility] Sodium Chloride 0.9% (titrate) 250 mL 250 mL, Rate: To prime line and flush remaining blood products., Dosing Weight 61.364, kg, Route: IV, Total Volume: 250, Start Date: 04/30/19 9:56:00 CONDITIONING MACHINE OPERATOR, Duration: 1 day, Stop date: 05/01/19 9:55:00 CONDITIONING MACHINE OPERATOR, Replace Every: 24 hr, 0 No Longer Active 04/30/2019 [facility] ferrous sulfate 325 mg oral enteric coated tablet 325 mg = 1 tab, PO, Daily, # 60 tab, 3 Refill(s) Active 04/10/2019 [facility] Enoxaparin Notes: Nurse to ens ure documentation of patient education per anticoagulation policy. (Same as: Lovenox) Inactive 03/04/2019 [facility] enoxaparin 60 mg/0.6 mL subcutaneous solution 60 mg, SUB-Q, Q12H, X 7 day, # 14 syr, 0 Refill(s), Pharmacy: [facility]/pharmacy #[id number] Active 03/04/2019 [facility] Sodium Chloride 0.9% IV 250 mL 250 mL, Rate: 20 ml/hr, Infuse over: 12.5 hr, Route: IV, Dosing Weight 59.545 kg, Total Volume: 250, Start date: 03/04/19 11:28:00 CDT, Duration: 24 hr, Stop date: 03/05/19 11:27:00 CDT, 1.65, m2, 0 Inactive 03/04/2019 [facility] Ondansetron Notes: (Same as: Oseas heard) MEDICATION WASTE Product Size: 4 mg Product Wasted: ___ mg Inactive 03/04/2019 [facility] Acetaminophen Notes: Do not ex ceed 4 gm/day. (Same as: Tylenol) Inactive 03/04/2019 [facility] acetaminophen-codeine #3 Notes : Do not exceed 4gm/day of acetaminophen. (Same as: Tylenol with Codeine # 3) Inactive 03/04/2019 [facility] omeprazole 40 mg oral delayed release capsule 40 mg = 1 cap, PO, Daily, # 30 cap, 1 Refill(s) Active 03/04/2019 [facility] prednisoLONE acetate 1% preservative-aretha e ophthalmic suspension See Instructions, 1 drop into left eye 3 times a day, 0 Refill(s) Active 03/04/2019 [facility] Calcium 600 +D oral tablet 1 t ab, PO, BID, 0 Refill(s) Active 03/04/2019 [facility] Acetaminophen 325 MG / tramadol hydrochl oride 37.5 MG Oral Tablet 1 tab, PO, Daily, PRN Pain, # 60 tab, 0 Refill(s) Active 03/04/2019 [facility] Metoprolol Tartrate 25 mg oral tablet = 1 tab, PO, BID, # 180 tab, 0 Refill(s), [id number] Nitroglycerin 0.4 MG Sublingual Tablet See Instructions, # 50 tab, Refill(s) 1, PLACE 1 TAB UNDER TONGUE EVER 5 MINUTES X 3 DOSES FOR CHEST PAIN IF NO IMPROVEMENT SEEK MEDICAL ATT., [id number] Active 11/09/[facility] warfarin 5 mg oral tablet = 1 tab, PO, Daily, # 90 tab, 1 Refill(s), [id number] Active 09/03/[facility] escitalopram 10 mg oral tablet 10 mg = 1 tab, PO, Daily, # 90 tab, 0 Refill(s), [id number] Active 08/13/[facility] Metformin hydrochloride 1000 MG Oral Tablet 1,000 mg = 1 tab, PO, BID, # 180 tab, 1 Refill(s), [id number] Active 07/02/[facility] Metformin hydrochloride 1000 MG Oral Tablet 1,000 mg = 1 tab, PO, BID, # 180 tab, 1 Refill(s), [id number] Inactive 07/01/[facility] ACCU-CHEK ADRIÁN PLUS TEST STRP See Instructions, # 50 strip, Refill(s) 5, USE DIRECTED ONCE DAILY, [id number] Active 06/18/[facility] Nitroglycerin 0.4 MG Sublingual Tablet See Instructions, # 50 tab, Refill(s) 1, PLACE 1 TAB UNDER TONGUE EVER 5 MINUTES X 3 DOSES FOR CHEST PAIN IF NO IMPROVEMENT SEEK MEDICAL ATT., [id number] No Longer Active 05/29/[facility] Ofloxacin 3 MG/ML Otic Solution 5 drp, RIGHT EAR, BID, # 10 mL, 0 Refill(s), [id number] Active 05/02/[facility] Coumadin Notes: Nurse to ensur e documentation of patient education per anticoagulation policy. Avoid large intake of vitamin-K containing foods diet. (Same As: Coumadin) WASTE: F/P - P Waste Black; E - P Waste Black No Longer Active 02/27/2018 [facility] 3 ML Insulin Glargine 100 UNT/ML Prefill ed Syringe [Lantus] Notes: (Same as: Lantus) Do not hold ins ulin without contacting prescriber WASTE: F/P - Black; E - Municipal Trash Bin "single patient use only" Inactive 02/27/2018 [facility] atorvastatin Notes: (Same as: Lipitor) Inactive 02/27/2018 [facility] travoprost 0.04 MG/ML Ophthalmic Solution [Travatan] Notes: Non-formulary Drug Same As: Travatan or Travatan Z Inactive 02/26/2018 [facility] Warfarin 5 mg, 1 tab, Route: P O, Drug form: TAB, Q5PM, Dosing Weight 63.6, kg, Start date: 02/26/18 17:00:00 CDT, Duration: 30 day, Stop date: 03/27/18 17:00:00 CDT Inactive 02/26/2018 [facility] Warfarin Notes: Nurse to ensur e documentation of patient education per anticoagulation policy. Avoid large intake of vitamin-K containing foods diet. WASTE: F/P - P Waste Black; E - P Waste Black (Same As: Coumadin) Inactive 02/26/2018 [facility] 24 HR Metoprolol Tartrate 25 MG Extended Release Tablet [Toprol] Notes: (Same as: Toprol XL) Do Not Crush Inactive 02/26/2018 [facility] Losartan Notes: (Same as: Coza ar) Inactive 02/26/2018 [facility] Furosemide 40 MG Oral Tablet N otes: (Same as: Lasix) May cause GI upset. Give with food or milk. Inactive 02/26/2018 [facility] Escitalopram Notes: (Same as: Lexapro) Inactive 02/26/2018 [facility] Digoxin 0.125 MG Oral Tablet N otes: Take on an Empty Stomach (Same as: Lanoxin) Inactive 02/26/2018 [facility] Aspirin 81 MG Enteric Coated Tablet Notes: Do not crush or chew. (Same As: Ecotrin) Inactive 02/26/2018 [facility] Protonix Notes: Tablet should not be chewed or crushed. (Same as: Protonix) Inactive 02/26/2018 [facility] Insulin Lispro Notes: (Same as : Humalog ) Roll in palms of hands gently; Do not shake `vigorously. "Single Patient Use Only " WASTE: F/P - Black; E - Municipal Trash Bin Stable for 28 days at room temp erature. Expires in days from Date Inactive 02/26/2018 [facility] Dextrose 50% Syringe 50 mL, Ro inés: IVP, Dosing Weight 63.6, kg, PRN, PRN Blood Glucose Results, Start date: 02/26/18 2:37:00 CDT, Duration: 30 day, Stop date: 03/28/18 2:36:00 CDT Inactive 02/26/2018 [facility] Glucagon 1 mg, Route: IM, PRN, Dosing Weight 63.6, kg, PRN Blood Glucose Results, Start date: 02/26/18 2:37:00 CDT, Duration: 30 day, Stop date: 03/28/18 2:36:00 CDT Inactive 02/26/2018 [facility] Lasix Notes: (Same as: Lasix) MEDICATION WASTE Product Size: 40 mg Product Wasted: ___ mg No Longer Active 02/26/2018 [facility] Katherine Gonzalez Notes: (Same A s: Katherine Gonzalez) "Do Not Crush" No Longer Active 02/25/2018 [facility] Benadryl 12.5 mg, 0.5 tab, Rou te: PO, Drug form: TAB, Q8H, Dosing Weight 63.636, kg, PRN as needed for itching, Priority: Routine, Start date: 02/25/18 18:49:00 CDT, Duration: 30 day, Stop date: 03/27/18 18:4 8:00 CDT No Longer Active 02/25/2018 [facility] Lactulose 667 MG/ML Oral Solution Notes: (Same as:Chronulac) No Longer Active 02/25/2018 [facility] Seroquel Notes: (Same as: SERO quel) No Longer Active 02/25/2018 [facility] Vasotec Notes: (Same as: Vasot ec-IV) No Longer Active 02/25/2018 [facility] Melatonin Notes: (Same as: Elisha atonin) No Longer Active 02/25/2018 [facility] Ondansetron Notes: (Same as: Oseas heard) MEDICATION WASTE Product Size: 4 mg Product Wasted: ___ mg No Longer Active 02/25/2018 [facility] Acetaminophen 325 MG / Hydrocodone Evan trate 5 MG Oral Tablet Notes: (Same as: [place] 325/5) Do not ex ceed 4gm/day of acetaminophen. No Longer Active 02/25/2018 [facility] Docusate Notes: (Same as: Cola ce) (Do Not Crush) No Longer Active 02/25/2018 [facility] Morphine Notes: (Same as:MORPh ine Sulfate) No Longer Active 02/25/2018 [facility] Acetaminophen Notes: Do not ex ceed 4 gm/day. (Same as: Tylenol) No Longer Active 02/25/2018 [facility] Saline Flush 0.9% Notes: (Same as: BD Posiflush) Inactive 02/25/2018 [facility] 3 ML Insulin Glargine 100 UNT/ML Prefill ed Syringe [Lantus] See Instructions, INJECT 30 UNITS SUB-Q AT BEDTIME ROTATE INJECTION SITES, # 15 syr, 4 Refill(s), [id number] warfarin 1 mg oral tablet See Instructions, 1 tab PO every MWF, # 1 tab, 2 Refill(s), [id number] Active 12/30/[facility] Metformin hydrochloride 1000 MG Oral Tablet 1,000 mg = 1 tab, PO, BID, # 180 tab, 1 Refill(s), [id number] No Longer Active 12/21/[facility] warfarin 5 mg oral tablet 5 mg = 1 tab, PO, Daily, # 90 tab, 1 Refill(s), [id number] Active 11/05/[facility] losartan 25 mg oral tablet 25 mg = 1 tab, PO, Daily, # 90 tab, 1 Refill(s), Pharmacy: [facility]/pharmacy #[id number] Active 11/05/2017 [facility] escitalopram 10 mg oral tablet 10 mg = 1 tab, PO, Daily, # 90 tab, 1 Refill(s), Pharmacy: [facility]/pharmacy #[id number] Active 10/07/2017 [facility] warfarin 1 mg oral tablet See Instructions, TAKE ONE TABLET BY MOUTH DAILY NEEDED, # 30 tab, 2 Refill(s), Pharmacy: [facility]/pharmacy #[id number] Active 10/01/2017 [facility] Acetaminophen 325 MG / tramadol hydrochl oride 37.5 MG Oral Tablet 1 tab, PO, Daily, take as needed, # 30 t ab, 1 Refill(s) Active 07/05/2017 [facility] Oseltamivir 75 MG Oral Capsule [Tamiflu] 75 mg = 1 cap, PO, BID, # 10 cap, 0 Refill(s) Active 07/05/2017 [facility] BD Ultra-Fine Mini Insulin Pen [place] 3 1G 5mm=3/16 inch 1 ea, MISC, Daily, # 100 ea, 3 Refill(s) Active 07/05/2017 [facility] benzonatate 100 mg oral capsule 100 mg = 1 cap, PO, TID, PRN cough, do not crush or chew, X 10 day, # 30 cap, 0 Refill(s), [id number] No Longer Active 06/21/2017 [facility] Cefuroxime 500 MG Oral Tablet 500 mg = 1 tab, PO, BID, X 7 day, # 14 tab, 0 Refill(s), [id number] No Longer Active 06/21/2017 [facility] Furosemide 40 MG Oral Tablet N otes: (Same as: Lasix) May cause GI upset. Give with food or milk. No Longer Active 12/02/2014 [facility] Levofloxacin 250 MG Oral Tablet [Levaquin] 250 mg = 1 tab, PO, Q24H, X 5 day, # 5 tab, 0 Refill(s) Active 12/01/2014 [facility] Warfarin Notes: Nurse to ensur e documentation of patient education per anticoagulation policy. Avoid large intake of vitamin-K containing foods diet. (Same As: Coumadin) No Longer Active 11/30/2014 [facility] Levaquin Notes: (Same as:Levaq uin) No Longer Active 11/30/2014 [facility] Losartan Notes: (Same as: Coza ar) No Longer Active 11/30/2014 [facility] Escitalopram Notes: (Same as: Lexapro) No Longer Active 11/30/2014 [facility] Morphine Notes: (Same as:MORPh ine Sulfate) No Longer Active 11/30/2014 [facility] digoxin 125 mcg (0.125 mg) oral tablet Notes: Take on an Empty Stomach (Same as: Lanoxin) No Longer Active 11/30/2014 [facility] travoprost 0.04 MG/ML Ophthalmic Solution [Travatan] Notes: (Same As: Travatan) No Longer Active 11/30/2014 [facility] Levemir FlexPen Notes: Same as Levemir Do not hold insulin without contacting prescriber "single patient use only" No Longer Active 11/30/2014 [facility] Insulin Glargine 30 unit, Rout e: SUB-Q, Drug form: SOLN, Bedtime, Dosing Weight 61.619, kg, Start date: 11/29/14 21:00:00, Duration: 30 day, Stop date: 12/28/14 21:00:00 Inactive 11/30/2014 [facility] atorvastatin Notes: (Same As: Lipitor) No Longer Active 11/30/2014 [facility] Mucinex Max Strength Notes: (S alyssa as: Guaifenesin LA, Humibid LA, Mucinex) "Do Not Crush" Take medication with plenty of water. No Longer Active 11/30/2014 [facility] Warfarin Notes: Nurse to ensur e documentation of patient education per anticoagulation policy. Avoid large intake of vitamin-K containing foods diet. (Same As: Coumadin) No Longer Active 11/29/2014 [facility] metoprolol tartrate Notes: (Sa me as: Lopressor) No Longer Active 11/29/2014 [facility] Metformin hydrochloride 1000 MG Oral Tablet Notes: (Same as: Glucophage) Take with meal No Longer Active 11/29/2014 [facility] Aspirin 81 MG Enteric Coated Tablet Notes: Do not crush or chew. (Same As: Ecotrin) No Longer Active 11/29/2014 [facility] codeine-guaiFENesin Notes: (Sa me As: Robitussin AC) No Longer Active 11/29/2014 [facility] Ketorolac Tromethamine 5 MG/ML Ophthalmic Solution Notes: (Same as:Acular) For ophthalmic use. No Longer Active 11/29/2014 [facility] prednisolone 1.2 MG/ML Ophthalmic Suspen ron [Pred Mild] 1 drp, Route: LEFT EYE, QID, Drug form: SUSP, Start date: 11/29/14 13:00:00, Duration: 30 day, Stop date: 12/29/14 9:00:00 Inactive 11/29/2014 [facility] prednisolone 10 MG/ML Ophthalmic Solution [Prednisol] Notes: (Same as: Pred Forte) N o Longer Active 11/29/2014 [facility] Levaquin 500 mg, Route: IVPB, [id number], Dosing Weight 61.619, kg, Start date: 11/29/14 11:00:00, Duration: 30 day, Stop date: 12/28/14 11:00:00 Inactive 11/29/2014 [facility] codeine-guaiFENesin Notes: (Sa me As: Iainitussin AC) Inactive 11/29/2014 [facility] tramadol 50 mg oral tablet Not es: Not to exceed 400mg/day. (Same As: Ultram) N o Longer Active 11/29/2014 [facility] Tylenol Notes: Do not exceed 4 gm/day. (Same as: Tylenol) No Longer Active 11/29/2014 [facility] Lasix Notes: (Same as: Lasix) MEDICATION WASTE Product Size: 40 mg Product Wasted: ___ mg No Longer Active 11/29/2014 [facility] Tessalon Perles 100 mg, Route: PO, Drug form: CAP, TID, Dosing Weight 61.619, kg, PRN Cough, Priority: NOW, Start date: 11/29/14 10:09:00, Duration: 30 day, Stop date: 12/29/14 10:08:00 Inactive 11/29/2014 [facility] Lorazepam Notes: (Same as: Monica owens) No Longer Active 11/29/2014 [facility] Acetaminophen 325 MG / tramadol hydrochl oride 37.5 MG Oral Tablet [Ultracet] 1 tab, Route: PO, Drug Form: TAB, Dosing Weight 61.619, kg, Q12H, PRN, Start date: 11/29/14 10:06:00, Duration: 30 day, Stop date: 12/29/14 10:05:00, moderate pain Inactive 11/29/2014 [facility] pneumococcal capsular polysaccharide typ e 1 vaccine / pneumococcal capsular polysaccharide type 10A vaccine / pneumococcal capsular polysaccharide type 11A vaccine / pneumococcal capsular polysaccharide type 12F vaccine / pneumococcal capsular polysacchar 0.5 mL, Route: IM, Daily, Start date: 11/29/14 9:00:00, Duration: 1 doses or times, Stop date: 11/29/14 9:00:00 Inactive 11/29/2014 [facility] Insulin, Aspart, Human Notes: Roll in palms of hands gently; Do not shake vigorously. (Same as: NovoLOG) "single patient use only" Stable for 28 days at room temperature. Expires in days from Date No Longer Active 11/29/2014 [facility] Glucagon 1 mg, Route: IM, Drug form: PDR/INJ, PRN, Dosing Weight 68.182, kg, PRN Blood Glucose Results, Start date: 11/29/14 2:03:00, Duration: 30 day, Stop date: 12/29/14 2:02:00 No Longer Active 11/29/2014 [facility] Dextrose 50% Syringe 25 gm, 50 mL, Route: IVP, Drug Form: INJ, Dosing Weight 68.182, kg, PRN, PRN Blood Glucose Results, Start date: 11/29/14 2:03:00, Duration: 30 day, Stop date: 12/29/14 2:02:00 No Longer Active 11/29/2014 [facility] atropine 0.5 mg, 5 mL, Route: IVP, Drug form: INJ, PRN, PRN Bradycardia, Start date: 11/29/14 1:56:00, Duration: 30 day, Stop date: 12/29/14 1:55:00 No Longer Active 11/29/2014 [facility] Nitroglycerin Notes: (Same as: Nitroquick, Nitrostat) "Do Not Crush" Sublingual tablet No Longer Active 11/29/2014 [facility] Acetaminophen 325 MG / tramadol hydrochl oride 37.5 MG Oral Tablet [Ultracet] Special Instructions: takes with milk to prevent stomach upset Active 11/29/2014 [facility] LORazepam 1 mg oral tablet 1 m g = 1 tab, PO, Bedtime, PRN Anxiety, # 20 tab, 0 Refill(s) Active 11/29/2014 [facility] prednisolone 1.2 MG/ML Ophthalmic Suspen ron [Pred Mild] 1 drp, LEFT EYE, QID, # 10 ml, 0 Refill(s) Active 11/29/2014 [facility] travoprost 0.04 MG/ML Ophthalmic Solution [Travatan] 1 drp, BOTH EYES, Bedtime, # 3 ml, 0 Refill(s) Active 11/29/2014 [facility] Ketorolac Tromethamine 5 MG/ML Ophthalmic Solution 1 drp, RIGHT EYE, QID, # 5 ml, 0 Refill(s) Active 11/29/2014 [facility] Aspirin 81 MG Enteric Coated Tablet Special Instructions: with food Active 11/29/2014 [facility] Metformin hydrochloride 1000 MG Oral Tablet Special Instructions: with meals Activ e 11/29/2014 [facility] metoprolol tartrate 25 mg oral tablet Special Instructions: takes with milk Active 11/29/2014 [facility] digoxin 125 mcg (0.125 mg) oral tablet Special Instructions: takes with milk to prevent stomach upset Active 11/29/2014 [facility] escitalopram 10 mg oral tablet Special Instructions: takes with milk Active 11/29/2014 [facility] atorvastatin 20 mg oral tablet Special Instructions: takes with milk Active 11/29/2014 [facility] losartan 25 mg oral tablet Spe cial Instructions: takes with milk Active 11/29/2014 [facility] 3 ML Insulin Glargine 100 UNT/ML Prefill ed Syringe [Lantus] 30 unit, SUB-Q, Bedtime, # 1 pen(s), 3 Refill(s) Active 11/29/2014 [facility] Furosemide 40 MG Oral Tablet S pecial Instructions: takes with milk Active 11/29/2014 [facility] warfarin 5 mg oral tablet Spec ial Instructions: with milk Active 11/29/2014 [facility] warfarin 6 mg oral tablet Spec ial Instructions: with milk Active 11/29/2014 [facility] Saline Flush 0.9% Notes: (Same as: BD Posiflush) No Longer Active 11/28/2014 [facility] Acetaminophen 650 mg, Route: P O, Drug form: TAB, ONCE, Dosing Weight 68.182, kg, Priority: STAT, Start date: 11/28/14 18:57:00, Stop date: 11/28/14 18:57:00 Inactive 11/28/2014 [facility] Aspirin 325 mg, Route: PO, Honorio g form: ECTAB, ONCE, Dosing Weight 68.182, kg, Priority: STAT, Start date: 11/28/14 18:51:00, Stop date: 11/28/14 18:51:00 Inactive 11/28/2014 [facility] Lasix 40 mg, Route: IVP, Drug form: INJ, ONCE, Dosing Weight 68.182, kg, Priority: STAT, Start date: 11/28/14 18:50:00, Stop date: 11/28/14 18:50:00 Inactive 11/28/2014 [facility] influenza virus vaccine, inactivated 0.5 ml, Route: IM, Drug Form: INJ, ONCALL, Start date: 07/01/08 23:18:06, Stop date: 07/31/08 23:03:06 IM No Longer Active SYSTEM 07/02/2008 [facility] Allergies, Adverse Reactions, Alerts Substance Category Reaction Severity Reaction type Status Date Reported Comments Source No Known Medication Allergies Assertion Drug aller gy [facility] NKFA Assertion Food allergy Active [facility] Immunizations Immunization Date Given Site Status Last Updated Comments Source pneumococcal 13-valent vaccine 02/26/2018 Not Given [facility], [facility] [place] influenza virus vaccine, inactivated 02/18/2018 completed V ega [facility], [facility] [place] influenza virus vaccine, inactivated<sup>1</sup> 04/03/2017 Left Deltoid completed Meredith Result Comment: Patient waited 15 min with no reaction [facility], [facility] [place] influenza virus vaccine, inactivated 03/01/2016 Left Deltoid completed Guevara [facility], [facility] [place] influenza virus vaccine, inactivated<sup>2</sup> 03/09/2014 Right Deltoid completed GE Result Comment: fluzone high dose [[id number]]. Migrated from OBS ; Data migrated from [employer] on 06/28/2015. [facility], [facility] [place] pneumococcal 23-valent vaccine<sup>4</sup> 09/01/2013 Right Thigh completed GE Result Comment: pneumovax 2 3 [[id number]]. Migrated from OBS VIS: Pneumovax 23: 03/01/09 ; Data migrated from [employer] on 06/28/2015. [facility], [facility] [place] influenza virus vaccine, inactivated<sup>3</sup> 03/03/2013 Right Deltoid completed GE Result Comment: fluzone (>3 yrs.) [[id number]]. Migrated from OBS ; Data migrated from [employer] on 06/28/2015. [facility], [facility] [place] influenza virus vaccine, inactivated 07/09/2008 Right upper forearm completed [facility], [place] influenza virus vaccine, inactivated 07/09/2008 completed Sam renee [facility] Results Order Name Results Value Reference Range Date Interpretation Comments Source CARDIAC ENZYMES Troponin-I <0.02 0.00 - 0.40 07/07/2019 [facility] CARDIAC ENZYMES Troponin-I <0.02 0.00 - 0.40 07/07/2019 [facility] CHEM PANEL Glucose Lvl 160 70 - 99 07/07/2019 [facility] CHEM PANEL BUN 28 7 - 22 07/07/2019 [facility] CHEM PANEL Creatinine Lvl 0.94 0.50 - 1.40 07/07/2019 [facility] CHEM PANEL Sodium Lvl 141 135 - 145 07/07/2019 [facility] PANEL Potassium Lvl 3.7 3.5 - 5.1 07/07/2019 [facility] CHEM PANEL Chloride Lvl 106 95 - 109 07/07/2019 [facility] CHEM PANEL CO2 29 24 - 32 07/07/2019 [facility] PANEL AGAP 9.7 10.0 - 20.0 07/07/2019 [facility] CHEM PANEL Calcium Lvl 9.2 8.5 - 10.5 07/07/2019 [facility] PANEL eGFR 60 07/07/2019 Result Comment: The eGFR is calculated using the CKD-EPI formula. In most young, healthy individuals the eGFR will be >90 mL/min/1.73m2. The eGFR declines with age. An eGFR of 60-89 may be normal in some populations, particularly the elderly, for whom the CKD-EPI formula has not been extensively validated. Use of the eGFR is not recommended in the following populations:

Individuals with unstable creatinine concentrations, including patients and those with serious co-morbid conditions.

Patients with extremes in muscle mass or diet.

The data above are obtained from the National Kidney Disease Education Program (NKDEP) which additionally recommends that when the eGFR is used in patients with extremes of body mass index for purposes of drug dosing, the eGFR should be multiplied by the estimated BMI. [facility] CHEM PANEL Total Protein 7.4 6.4 - 8.4 07/07/2019 [facility] CHEM PANEL Albumin Lvl 3.5 3.5 - 5.0 07/07/2019 [facility] CHEM PANEL ALT 16 0 - 65 07/07/2019 [facility] CHEM PANEL AST 17 0 - 37 07/07/2019 [facility] CHEM PANEL Alk Phos 94 39 - 136 07/07/2019 [facility] CHEM PANEL Bili Total 0.5 0.2 - 1.3 07/07/2019 [facility] CHEM PANEL Bili Direct 0.1 0.0 - 0.3 07/07/2019 [facility] CHEM PANEL Globulin 3.9 2.7 - 4.2 07/07/2019 [facility] CHEM PANEL A/G Ratio 0.9 0.7 - 1.6 07/07/2019 [facility] CHEM PANEL Bili Indirect 0.4 0.0 - 1.0 07/07/2019 [facility] CHEM PANEL Magnesium Lvl 1.9 1.8 - 2.4 07/07/2019 [facility] CHEM PANEL Phosphorus 3.4 2.5 - 4.5 07/07/2019 [facility] HEMATOLOGY WBC 4.1 3.7 - 10.4 07/07/2019 [facility] HEMATOLOGY RBC 3.39 4.20 - 5.40 07/07/2019 [facility] HEMATOLOGY Hgb 7.9 12.0 - 16.0 07/07/2019 [facility] HEMATOLOGY Hct 25.2 36.0 - 48.0 07/07/2019 [facility] HEMATOLOGY MCV 74.1 80.0 - 98.0 07/07/2019 [facility] HEMATOLOGY MCH 23.4 27.0 - 31.0 07/07/2019 [facility] HEMATOLOGY MCHC 31.6 32.0 - 36.0 07/07/2019 [facility] HEMATOLOGY RDW 18.3 11.5 - 14.5 07/07/2019 [facility] HEMATOLOGY Platelet 153 133 - 450 07/07/2019 [facility] HEMATOLOGY MPV 8.8 7.4 - 10.4 07/07/2019 [facility] HEMATOLOGY PT 26.3 12.0 - 14.7 07/07/2019 [facility] HEMATOLOGY INR 2.37 0.85 - 1.17 07/07/2019 [facility] HEMATOLOGY PTT 48.5 22.9 - 35.8 07/07/2019 [facility] HEMATOLOGY Segs 57.7 45.0 - 75.0 07/07/2019 [facility] HEMATOLOGY Lymphocytes 28.4 20.0 - 40.0 07/07/2019 [facility] HEMATOLOGY Monocytes 8.9 2.0 - 12.0 07/07/2019 [facility] HEMATOLOGY Eosinophils 4.5 0.0 - 4.0 07/07/2019 [facility] HEMATOLOGY Basophils 0.5 0.0 - 1.0 07/07/2019 [facility] HEMATOLOGY Neutrophils # 2.4 1.5 - 8.1 07/07/2019 [facility] HEMATOLOGY Lymphocytes # 1.2 1.0 - 5.5 07/07/2019 [facility] HEMATOLOGY Monocytes # 0.4 0.0 - 0.8 07/07/2019 [facility] HEMATOLOGY Eosinophils # 0.2 0.0 - 0.5 07/07/2019 [facility] HEMATOLOGY Microcyte 1+ *ABN* (07/07/19 7:35 AM) None Seen 07/07/2019 [facility] CARDIAC ENZYMES Total CK 66 12 - 191 07/07/2019 [facility] CARDIAC ENZYMES Troponin-I <0.02 0.00 - 0.40 07/07/2019 [facility] CARDIAC ENZYMES BNP 110 <=100 pg/mL 07/07/2019 [facility] CHEM PANEL Glucose Lvl 303 70 - 99 07/07/2019 [facility] BUN 28 7 - 22 07/07/2019 [facility] Creatinine Lvl 1.13 0.50 - 1.40 07/07/2019 [facility] PAN[facility] Sodium Lvl 137 135 - 145 07/07/2019 [facility] PANEL Potassium Lvl 4.4 3.5 - 5.1 07/07/2019 [facility] PANEL Chloride Lvl 103 95 - 109 07/07/2019 [facility] CHEM PANEL CO2 27 24 - 32 07/07/2019 [facility] CHEM PANEL Calcium Lvl 8.8 8.5 - 10.5 07/07/2019 [facility] CHEM PANEL Total Protein 7.9 6.4 - 8.4 07/07/2019 [facility] CHEM PANEL Albumin Lvl 3.7 3.5 - 5.0 07/07/2019 [facility] CHEM PANEL ALT 18 0 - 65 07/07/2019 [facility] CHEM PANEL AST 17 0 - 37 07/07/2019 [facility] CHEM PANEL Alk Phos 105 39 - 136 07/07/2019 [facility] CHEM PANEL Bili Total 0.5 0.2 - 1.3 07/07/2019 [facility] CHEM PANEL AGAP 11.4 10.0 - 20.0 07/07/2019 [facility] CHEM PANEL B/C Ratio 25 6 - 25 07/07/2019 [facility] CHEM PANEL Globulin 4.2 2.7 - 4.2 07/07/2019 [facility] CHEM PANEL A/G Ratio 0.9 0.7 - 1.6 07/07/2019 [facility] CHEM PANEL eGFR 48 07/07/2019 Result Comment: The eGFR is calculated using the CKD-EPI formula. In most young, healthy individuals the eGFR will be >90 mL/min/1.73m2. The eGFR declines with age. An eGFR of 60-89 may be normal in some populations, particularly the elderly, for whom the CKD-EPI formula has not been extensively validated. Use of the eGFR is not recommended in the following populations:

Individuals with unstable creatinine concentrations, including patients and those with serious co-morbid conditions.

Patients with extremes in muscle mass or diet.

The data above are obtained from the National Kidney Disease Education Program (NKDEP) which additionally recommends that when the eGFR is used in patients with extremes of body mass index for purposes of drug dosing, the eGFR should be multiplied by the estimated BMI. [facility] CHEM PANEL Magnesium Lvl 1.9 1.8 - 2.4 07/07/2019 [facility] HEMATOLOGY WBC 5.1 3.7 - 10.4 07/07/2019 [facility] HEMATOLOGY RBC 3.58 4.20 - 5.40 07/07/2019 [facility] Hgb 8.4 12.0 - 16.0 07/07/2019 [facility] HEMATOLOGY Hct 26.6 36.0 - 48.0 07/07/2019 [facility] HEMATOLOGY MCV 74.2 80.0 - 98.0 07/07/2019 [facility] MCH 23.3 27.0 - 31.0 07/07/2019 [facility] HEMATOLOGY MCHC 31.5 32.0 - 36.0 07/07/2019 [facility] HEMATOLOGY RDW 18.3 11.5 - 14.5 07/07/2019 [facility] Platelet 162 133 - 450 07/07/2019 [facility] MPV 8.9 7.4 - 10.4 07/07/2019 [facility] HEMATOLOGY PT 24.2 12.0 - 14.7 07/07/2019 [facility] HEMATOLOGY INR 2.13 0.85 - 1.17 07/07/2019 [facility] PTT 47.2 22.9 - 35.8 07/07/2019 [facility] Segs 60.4 45.0 - 75.0 07/07/2019 [facility] HEMATOLOGY Lymphocytes 26.4 20.0 - 40.0 07/07/2019 [facility] HEMATOLOGY Monocytes 8.4 2.0 - 12.0 07/07/2019 [facility] Eosinophils 4.2 0.0 - 4.0 07/07/2019 [facility] Basophils 0.6 0.0 - 1.0 07/07/2019 [facility] Neutrophils # 3.1 1.5 - 8.1 07/07/2019 [facility] Lymphocytes # 1.3 1.0 - 5.5 07/07/2019 [facility] Monocytes # 0.4 0.0 - 0.8 07/07/2019 [facility] Eosinophils # 0.2 0.0 - 0.5 07/07/2019 [facility] Microcyte 1+ *ABN* (07/06/19 7:45 PM) None Seen 07/07/2019 [facility] CHEM PANEL Glucose Lvl 180 70 - 99 05/01/2019 [facility] CHEM PANEL BUN 23 7 - 22 05/01/2019 [facility] CHEM PANEL Creatinine Lvl 0.88 0.50 - 1.40 05/01/2019 [facility] CHEM PANEL Sodium Lvl 139 135 - 145 05/01/2019 [facility] CHEM PANEL Potassium Lvl 4.0 3.5 - 5.1 05/01/2019 [facility] CHEM PANEL Chloride Lvl 108 95 - 109 05/01/2019 [facility] CHEM PANEL CO2 24 24 - 32 05/01/2019 [facility] CHEM PANEL AGAP 11.0 10.0 - 20.0 05/01/2019 [facility] CHEM PANEL Calcium Lvl 8.6 8.5 - 10.5 05/01/2019 [facility] CHEM PANEL eGFR 65 05/01/2019 Result Comment: The eGFR is calculated using the CKD-EPI formula. In most young, healthy individuals the eGFR will be >90 mL/min/1.73m2. The eGFR declines with age. An eGFR of 60-89 may be normal in some populations, particularly the elderly, for whom the CKD-EPI formula has not been extensively validated. Use of the eGFR is not recommended in the following populations:

Individuals with unstable creatinine concentrations, including patients and those with serious co-morbid conditions.

Patients with extremes in muscle mass or diet.

The data above are obtained from the National Kidney Disease Education Program (NKDEP) which additionally recommends that when the eGFR is used in patients with extremes of body mass index for purposes of drug dosing, the eGFR should be multiplied by the estimated BMI. [facility] CHEM PANEL Magnesium Lvl 2.3 1.8 - 2.4 05/01/2019 [facility] HEMATOLOGY Segs 65.7 45.0 - 75.0 05/01/2019 [facility] HEMATOLOGY Lymphocytes 23.2 20.0 - 40.0 05/01/2019 [facility] HEMATOLOGY Monocytes 8.8 2.0 - 12.0 05/01/2019 [facility] HEMATOLOGY Eosinophils 1.7 0.0 - 4.0 05/01/2019 [facility] HEMATOLOGY Basophils 0.6 0.0 - 1.0 05/01/2019 [facility] HEMATOLOGY Neutrophils # 3.1 1.5 - 8.1 05/01/2019 [facility] HEMATOLOGY Lymphocytes # 1.1 1.0 - 5.5 05/01/2019 [facility] HEMATOLOGY Monocytes # 0.4 0.0 - 0.8 05/01/2019 [facility] HEMATOLOGY Eosinophils # 0.1 0.0 - 0.5 05/01/2019 [facility] HEMATOLOGY Microcyte 2+ *ABN* (05/01/19 2:45 AM) None Seen 05/01/2019 [facility] HEMATOLOGY WBC 4.7 3.7 - 10.4 05/01/2019 [facility] HEMATOLOGY RBC 3.32 4.20 - 5.40 05/01/2019 [facility] HEMATOLOGY Hgb 7.7 12.0 - 16.0 05/01/2019 [facility] HEMATOLOGY Hct 23.6 36.0 - 48.0 05/01/2019 [facility] HEMATOLOGY MCV 71.2 80.0 - 98.0 05/01/2019 [facility] HEMATOLOGY MCH 23.3 27.0 - 31.0 05/01/2019 [facility] HEMATOLOGY MCHC 32.7 32.0 - 36.0 05/01/2019 [facility] HEMATOLOGY RDW 20.1 11.5 - 14.5 05/01/2019 [facility] HEMATOLOGY Platelet 103 133 - 450 05/01/2019 [facility] HEMATOLOGY MPV 9.0 7.4 - 10.4 05/01/2019 [facility] HEMATOLOGY PT 15.8 12.0 - 14.7 05/01/2019 [facility] HEMATOLOGY INR 1.29 0.85 - 1.17 05/01/2019 [facility] HEMATOLOGY PTT 52.6 22.9 - 35.8 05/01/2019 [facility] CHEM PANEL Glucose Lvl 73 70 - 99 04/30/2019 [facility] CHEM PANEL BUN 25 7 - 22 04/30/2019 [facility] CHEM PANEL Creatinine Lvl 0.88 0.50 - 1.40 04/30/2019 [facility] CHEM PANEL Sodium Lvl 139 135 - 145 04/30/2019 [facility] CHEM PANEL Potassium Lvl 3.7 3.5 - 5.1 04/30/2019 [facility] CHEM PANEL Chloride Lvl 104 95 - 109 04/30/2019 [facility] CHEM PANEL CO2 28 24 - 32 04/30/2019 [facility] CHEM PANEL Calcium Lvl 8.6 8.5 - 10.5 04/30/2019 [facility] CHEM PANEL eGFR 65 04/30/2019 Result Comment: The eGFR is calculated using the CKD-EPI formula. In most young, healthy individuals the eGFR will be >90 mL/min/1.73m2. The eGFR declines with age. An eGFR of 60-89 may be normal in some populations, particularly the elderly, for whom the CKD-EPI formula has not been extensively validated. Use of the eGFR is not recommended in the following populations:

Individuals with unstable creatinine concentrations, including patients and those with serious co-morbid conditions.

Patients with extremes in muscle mass or diet.

The data above are obtained from the National Kidney Disease Education Program (NKDEP) which additionally recommends that when the eGFR is used in patients with extremes of body mass index for purposes of drug dosing, the eGFR should be multiplied by the estimated BMI. [facility] CHEM PANEL AGAP 10.7 10.0 - 20.0 04/30/2019 [facility] CHEM PANEL Magnesium Lvl 1.9 1.8 - 2.4 04/30/2019 [facility] HEMATOLOGY WBC 4.6 3.7 - 10.4 04/30/2019 [facility] HEMATOLOGY RBC 3.29 4.20 - 5.40 04/30/2019 [facility] HEMATOLOGY Hgb 7.5 12.0 - 16.0 04/30/2019 [facility] HEMATOLOGY Hct 23.5 36.0 - 48.0 04/30/2019 [facility] HEMATOLOGY MCV 71.2 80.0 - 98.0 04/30/2019 [facility] HEMATOLOGY MCH 22.8 27.0 - 31.0 04/30/2019 [facility] HEMATOLOGY MCHC 32.1 32.0 - 36.0 04/30/2019 [facility] HEMATOLOGY RDW 20.3 11.5 - 14.5 04/30/2019 [facility] HEMATOLOGY Platelet 116 133 - 450 04/30/2019 [facility] HEMATOLOGY MPV 9.2 7.4 - 10.4 04/30/2019 [facility] HEMATOLOGY PT 15.8 12.0 - 14.7 04/30/2019 [facility] HEMATOLOGY INR 1.29 0.85 - 1.17 04/30/2019 [facility] HEMATOLOGY PTT 50.1 22.9 - 35.8 04/30/2019 [facility] HEMATOLOGY Segs 58.9 45.0 - 75.0 04/30/2019 [facility] HEMATOLOGY Lymphocytes 28.1 20.0 - 40.0 04/30/2019 [facility] HEMATOLOGY Monocytes 7.3 2.0 - 12.0 04/30/2019 [facility] HEMATOLOGY Eosinophils 5.2 0.0 - 4.0 04/30/2019 [facility] HEMATOLOGY Basophils 0.5 0.0 - 1.0 04/30/2019 [facility] HEMATOLOGY Neutrophils # 2.7 1.5 - 8.1 04/30/2019 [facility] HEMATOLOGY Lymphocytes # 1.3 1.0 - 5.5 04/30/2019 [facility] HEMATOLOGY Monocytes # 0.3 0.0 - 0.8 04/30/2019 [facility] HEMATOLOGY Eosinophils # 0.2 0.0 - 0.5 04/30/2019 [facility] HEMATOLOGY Microcyte 2+ *ABN* (04/30/19 5:18 PM) None Seen 04/30/2019 [facility] PARATHYROID PROFILE Ca Ion WB 1.03 1.05 - 1.25 04/30/2019 [facility] PARATHYROID PROFILE Ca Norm WB 1.03 1.05 - 1.25 04/30/2019 [facility] BLOOD BANK RESULTS ABO/Rh O NEG 04/30/2019 [facility] BLOOD BANK RESULTS Antibody Scrn Negative (04/30/19 10:01 AM) 04/30/2019 [facility] CARDIAC ENZYMES BNP 152 <=100 pg/mL 04/30/2019 [facility] CHEM PANEL Magnesium Lvl 2.3 1.8 - 2.4 04/30/2019 [facility] ELECTROLYTES AGAP 13.9 10.0 - 20.0 04/30/2019 [facility] ELECTROLYTES B/C Ratio 31 6 - 25 04/30/2019 [facility] ELECTROLYTES Globulin 4.0 2.7 - 4.2 04/30/2019 [facility] ELECTROLYTES A/G Ratio 1.0 0.7 - 1.6 04/30/2019 [facility] ELECTROLYTES Glucose Lvl 69 70 - 99 04/30/2019 [facility] ELECTROLYTES BUN 30 7 - 22 04/30/2019 [facility] ELECTROLYTES Creatinine Lvl 0.9 7 0.50 - 1.40 04/30/2019 [facility] ELECTROLYTES Sodium Lvl 140 135 - 145 04/30/2019 [facility] ELECTROLYTES Potassium Lvl 3.9 3.5 - 5.1 04/30/2019 [facility] ELECTROLYTES Chloride Lvl 101 95 - 109 04/30/2019 [facility] ELECTROLYTES CO2 29 24 - 32 04/30/2019 [facility] ELECTROLYTES Calcium Lvl 9.8 8.5 - 10.5 04/30/2019 [facility] ELECTROLYTES eGFR 58 04/30/2019 Result Comment: The eGFR is calculated using the CKD-EPI formula. In most young, healthy individuals the eGFR will be >90 mL/min/1.73m2. The eGFR declines with age. An eGFR of 60-89 may be normal in some populations, particularly the elderly, for whom the CKD-EPI formula has not been extensively validated. Use of the eGFR is not recommended in the following populations:

Individuals with unstable creatinine concentrations, including patients and those with serious co-morbid conditions.

Patients with extremes in muscle mass or diet.

The data above are obtained from the National Kidney Disease Education Program (NKDEP) which additionally recommends that when the eGFR is used in patients with extremes of body mass index for purposes of drug dosing, the eGFR should be multiplied by the estimated BMI. [facility] ELECTROLYTES ALT 21 0 - 65 04/30/2019 [facility] ELECTROLYTES Albumin Lvl 4.2 3.5 - 5.0 04/30/2019 [facility] ELECTROLYTES Alk Phos 91 39 - 136 04/30/2019 [facility] ELECTROLYTES Bili Total 0.8 0.2 - 1.3 04/30/2019 [facility] ELECTROLYTES Total Protein 8.2 6.4 - 8.4 04/30/2019 [facility] ELECTROLYTES AST 29 0 - 37 04/30/2019 [facility] HEMATOLOGY WBC 5.8 3.7 - 10.4 04/30/2019 [facility] HEMATOLOGY RBC 4.00 4.20 - 5.40 04/30/2019 [facility] HEMATOLOGY Hgb 9.1 12.0 - 16.0 04/30/2019 [facility] HEMATOLOGY Hct 28.5 36.0 - 48.0 04/30/2019 [facility] HEMATOLOGY MCV 71.2 80.0 - 98.0 04/30/2019 [facility] HEMATOLOGY MCH 22.7 27.0 - 31.0 04/30/2019 [facility] HEMATOLOGY MCHC 31.9 32.0 - 36.0 04/30/2019 [facility] HEMATOLOGY RDW 20.6 11.5 - 14.5 04/30/2019 [facility] HEMATOLOGY Platelet 151 133 - 450 04/30/2019 [facility] HEMATOLOGY MPV 9.0 7.4 - 10.4 04/30/2019 [facility] HEMATOLOGY PT 14.4 12.0 - 14.7 04/30/2019 [facility] HEMATOLOGY PTT 47.4 22.9 - 35.8 04/30/2019 [facility] HEMATOLOGY INR 1.14 0.85 - 1.17 04/30/2019 [facility] HEMATOLOGY Segs 70.3 45.0 - 75.0 04/30/2019 [facility] HEMATOLOGY Lymphocytes 20.3 20.0 - 40.0 04/30/2019 [facility] HEMATOLOGY Monocytes 8.0 2.0 - 12.0 04/30/2019 [facility] HEMATOLOGY Eosinophils 0.9 0.0 - 4.0 04/30/2019 [facility] HEMATOLOGY Basophils 0.5 0.0 - 1.0 04/30/2019 [facility] HEMATOLOGY Neutrophils # 4.1 1.5 - 8.1 04/30/2019 [facility] HEMATOLOGY Lymphocytes # 1.2 1.0 - 5.5 04/30/2019 [facility] HEMATOLOGY Monocytes # 0.5 0.0 - 0.8 04/30/2019 [facility] HEMATOLOGY Eosinophils # 0.1 0.0 - 0.5 04/30/2019 [facility] HEMATOLOGY Microcyte 2+ *ABN* (04/30/19 10:01 AM) None Seen 04/30/2019 [facility] URINE AND STOOL UA Color Yellow *NA* (04/30/19 10:01 AM) Yellow 04/30/2019 [facility] URINE AND STOOL UA Turbidity Clear (04/30/19 10:01 AM) Clear 04/30/2019 [facility] URINE AND STOOL UA Spec Grav 1.018 <=1.030 04/30/2019 [facility] URINE AND STOOL UA pH 8.0 5.0 - 8.0 04/30/2019 [facility] URINE AND STOOL UA Protein 30 mg/dL Negative mg/dL 04/30/2019 [facility] URINE AND STOOL UA Glucose Negative mg/dL Negative mg/dL 04/30/2019 [facility] URINE AND STOOL UA Ketones Negative mg/dL Negative mg/dL 04/30/2019 [facility] URINE AND STOOL UA Bili Negative *NA* (04/30/19 10:01 AM) Negative 04/30/2019 [facility] URINE AND STOOL UA Blood Negative (04/30/19 10:01 AM) Negative 04/30/2019 [facility] URINE AND STOOL UA Urobilinogen 4.0 0.1 - 1.0 04/30/2019 [facility] URINE AND STOOL UA Nitrite Negative (04/30/19 10:01 AM) Negative 04/30/2019 [facility] URINE AND STOOL UA Leuk Est Negative (04/30/19 10:01 AM) Negative 04/30/2019 [facility] URINE AND STOOL UA Sq Epi Occasional /LPF Few /LPF 04/30/2019 [facility] BLOOD BANK RESULTS RBC product Product available (04/30/19 9:56 AM) 04/30/2019 [facility] BLOOD BANK RESULTS FFP product Product available (04/30/19 9:56 AM) 04/30/2019 [facility] CHEM PANEL POC Creatinine 0.9 0.5 - 1.4 04/10/2019 [facility] CHEM PANEL eGFR 64 04/10/2019 Result Comment: The eGFR is calculated using the CKD-EPI formula. In most young, healthy individuals the eGFR will be >90 mL/min/1.73m2. The eGFR declines with age. An eGFR of 60-89 may be normal in some populations, particularly the elderly, for whom the CKD-EPI formula has not been extensively validated. Use of the eGFR is not recommended in the following populations:

Individuals with unstable creatinine concentrations, including patients and those with serious co-morbid conditions.

Patients with extremes in muscle mass or diet.

The data above are obtained from the National Kidney Disease Education Program (NKDEP) which additionally recommends that when the eGFR is used in patients with extremes of body mass index for purposes of drug dosing, the eGFR should be multiplied by the estimated BMI. [facility] HEMATOLOGY PT 16.2 12.0 - 14.7 03/04/2019 [facility] HEMATOLOGY INR 1.33 0.85 - 1.17 03/04/2019 [facility] HEMATOLOGY PTT 54.3 22.9 - 35.8 03/04/2019 [facility] CARDIAC ENZYMES Troponin-I <0.02 0.00 - 0.40 01/30/2019 [facility] ELECTROLYTES AGAP 11.6 10.0 - 20.0 01/30/2019 [facility] ELECTROLYTES B/C Ratio 27 6 - 25 01/30/2019 [facility] ELECTROLYTES Globulin 4.0 2.7 - 4.2 01/30/2019 [facility] ELECTROLYTES A/G Ratio 1.0 0.7 - 1.6 01/30/2019 [facility] ELECTROLYTES Glucose Lvl 99 70 - 99 01/30/2019 [facility] ELECTROLYTES BUN 30 7 - 22 01/30/2019 [facility] ELECTROLYTES Creatinine Lvl 1.1 0 0.50 - 1.40 01/30/2019 [facility] ELECTROLYTES Sodium Lvl 141 135 - 145 01/30/2019 [facility] ELECTROLYTES Potassium Lvl 4.6 3.5 - 5.1 01/30/2019 [facility] ELECTROLYTES Chloride Lvl 107 95 - 109 01/30/2019 [facility] ELECTROLYTES CO2 27 24 - 32 01/30/2019 [facility] ELECTROLYTES Calcium Lvl 9.2 8.5 - 10.5 01/30/2019 [facility] ELECTROLYTES Total Protein 7.9 6.4 - 8.4 01/30/2019 [facility] ELECTROLYTES Albumin Lvl 3.9 3.5 - 5.0 01/30/2019 [facility] ELECTROLYTES ALT 18 0 - 65 01/30/2019 [facility] ELECTROLYTES AST 20 0 - 37 01/30/2019 [facility] ELECTROLYTES Alk Phos 91 39 - 136 01/30/2019 [facility] ELECTROLYTES Bili Total 0.7 0.2 - 1.3 01/30/2019 [facility] ELECTROLYTES eGFR 50 01/30/2019 Result Comment: The eGFR is calculated using the CKD-EPI formula. In most young, healthy individuals the eGFR will be >90 mL/min/1.73m2. The eGFR declines with age. An eGFR of 60-89 may be normal in some populations, particularly the elderly, for whom the CKD-EPI formula has not been extensively validated. Use of the eGFR is not recommended in the following populations:

Individuals with unstable creatinine concentrations, including patients and those with serious co-morbid conditions.

Patients with extremes in muscle mass or diet.

The data above are obtained from the National Kidney Disease Education Program (NKDEP) which additionally recommends that when the eGFR is used in patients with extremes of body mass index for purposes of drug dosing, the eGFR should be multiplied by the estimated BMI. [facility] HEMATOLOGY WBC 6.1 3.7 - 10.4 01/30/2019 [facility] HEMATOLOGY RBC 3.92 4.20 - 5.40 01/30/2019 [facility] Hgb 8.5 12.0 - 16.0 01/30/2019 [facility] Hct 26.9 36.0 - 48.0 01/30/2019 [facility] MCV 68.7 80.0 - 98.0 01/30/2019 [facility] MCH 21.6 27.0 - 31.0 01/30/2019 [facility] MCHC 31.5 32.0 - 36.0 01/30/2019 [facility] RDW 19.6 11.5 - 14.5 01/30/2019 [facility] Platelet 148 133 - 450 01/30/2019 [facility] MPV 9.2 7.4 - 10.4 01/30/2019 [facility] PT 22.0 12.0 - 14.7 01/30/2019 [facility] INR 1.97 0.85 - 1.17 01/30/2019 [facility] PTT 49.6 22.9 - 35.8 01/30/2019 [facility] Plt Morph Emma l (01/30/19 3:17 PM) Normal 01/30/2019 [facility] Segs 77.0 45.0 - 75.0 01/30/2019 [facility] Lymphocytes 16.0 20.0 - 40.0 01/30/2019 [facility] Monocytes 5.6 2.0 - 12.0 01/30/2019 [facility] Eosinophils 0.9 0.0 - 4.0 01/30/2019 [facility] Basophils 0.5 0.0 - 1.0 01/30/2019 [facility] Neutrophils # 4.7 1.5 - 8.1 01/30/2019 [facility] Lymphocytes # 1.0 1.0 - 5.5 01/30/2019 [facility] Monocytes # 0.3 0.0 - 0.8 01/30/2019 [facility] Eosinophils # 0.1 0.0 - 0.5 01/30/2019 [facility] Anisocyte 1+ *ABN* (01/30/19 3:17 PM) None Seen 01/30/2019 [facility] Microcyte 3+ *NA* (01/30/19 3:17 PM) None Seen 01/30/2019 [facility] Hypochrom 1+ (01/30/19 3:17 PM) None Seen 01/30/2019 [facility] URINE AND STOOL UA Color Yellow *NA* (01/30/19 3:17 PM) Yellow 01/30/2019 [facility] URINE AND STOOL UA Turbidity Clear (01/30/19 3:17 PM) Clear 01/30/2019 [facility] URINE AND STOOL UA Spec Grav 1.018 <=1.030 01/30/2019 [facility] URINE AND STOOL UA pH 6.0 5.0 - 8.0 01/30/2019 [facility] URINE AND STOOL UA Protein 30 mg/dL Negative mg/dL 01/30/2019 [facility] URINE AND STOOL UA Glucose Negative mg/dL Negative mg/dL 01/30/2019 [facility] URINE AND STOOL UA Ketones Negative mg/dL Negative mg/dL 01/30/2019 [facility] URINE AND STOOL UA Bili Negative *NA* (01/30/19 3:17 PM) Negative 01/30/2019 [facility] URINE AND STOOL UA Blood Negative (01/30/19 3:17 PM) Negative 01/30/2019 [facility] URINE AND STOOL UA Nitrite Negative (01/30/19 3:17 PM) Negative 01/30/2019 [facility] URINE AND STOOL UA Leuk Est Negative (01/30/19 3:17 PM) Negative 01/30/2019 [facility] URINE AND STOOL UA Sq Epi Moderate /LPF Few /LPF 01/30/2019 [facility] URINE AND STOOL UA WBC <1 0 - 5 01/30/2019 [facility] URINE AND STOOL UA RBC 1 0 - 2 01/30/2019 [facility] URINE AND STOOL UA Bacteria Occasional /HPF None Seen /HPF 01/30/2019 [facility] URINE AND STOOL UA Mucus Few /LPF None Seen /LPF 01/30/2019 [facility] URINE AND STOOL UA Hyal Cast 1 0 - 2 01/30/2019 [facility] URINE AND STOOL UA Urobilinogen <=1.0 mg/dL 0.1 - 1.0 01/30/2019 [facility] HEMATOLOGY PT 23.6 12.0 - 14.7 02/26/2018 [facility] HEMATOLOGY INR 2.08 0.85 - 1.17 02/26/2018 [facility] CHEM PANEL Magnesium Lvl 2.1 1.8 - 2.4 02/26/2018 [facility] ELECTROLYTES AGAP 16.9 10.0 - 20.0 02/26/2018 [facility] ELECTROLYTES B/C Ratio 30 6 - 25 02/26/2018 [facility] ELECTROLYTES Globulin 4.2 2.7 - 4.2 02/26/2018 [facility] ELECTROLYTES A/G Ratio 0.9 0.7 - 1.6 02/26/2018 [facility] ELECTROLYTES eGFR 62 02/26/2018 Result Comment: The eGFR is calculated using the CKD-EPI formula. In most young, healthy individuals the eGFR will be >90 mL/min/1.73m2. The eGFR declines with age. An eGFR of 60-89 may be normal in some populations, particularly the elderly, for whom the CKD-EPI formula has not been extensively validated. Use of the eGFR is not recommended in the following populations:

Individuals with unstable creatinine concentrations, including patients and those with serious co-morbid conditions.

Patients with extremes in muscle mass or diet.

The data above are obtained from the National Kidney Disease Education Program (NKDEP) which additionally recommends that when the eGFR is used in patients with extremes of body mass index for purposes of drug dosing, the eGFR should be multiplied by the estimated BMI. [facility] ELECTROLYTES AST 24 0 - 37 02/26/2018 [facility] ELECTROLYTES Alk Phos 115 39 - 136 02/26/2018 [facility] ELECTROLYTES Bili Total 0.5 0.2 - 1.3 02/26/2018 [facility] ELECTROLYTES CO2 27 24 - 32 02/26/2018 [facility] ELECTROLYTES Calcium Lvl 8.9 8.5 - 10.5 02/26/2018 [facility] ELECTROLYTES Total Protein 7.8 6.4 - 8.4 02/26/2018 [facility] ELECTROLYTES Albumin Lvl 3.6 3.5 - 5.0 02/26/2018 [facility] ELECTROLYTES ALT 23 0 - 65 02/26/2018 [facility] ELECTROLYTES BUN 28 7 - 22 02/26/2018 [facility] ELECTROLYTES Creatinine Lvl 0.9 3 0.50 - 1.40 02/26/2018 [facility] ELECTROLYTES Sodium Lvl 143 135 - 145 02/26/2018 [facility] ELECTROLYTES Potassium Lvl 3.9 3.5 - 5.1 02/26/2018 [facility] ELECTROLYTES Chloride Lvl 103 95 - 109 02/26/2018 [facility] ELECTROLYTES Glucose Lvl 182 70 - 99 02/26/2018 [facility] HEMATOLOGY MCH 25.2 27.0 - 31.0 02/26/2018 [facility] HEMATOLOGY MCHC 32.9 32.0 - 36.0 02/26/2018 [facility] HEMATOLOGY RDW 16.6 11.5 - 14.5 02/26/2018 [facility] HEMATOLOGY Platelet 132 133 - 450 02/26/2018 [facility] HEMATOLOGY MCV 76.7 80.0 - 98.0 02/26/2018 [facility] HEMATOLOGY MPV 9.2 7.4 - 10.4 02/26/2018 [facility] HEMATOLOGY WBC 5.7 3.7 - 10.4 02/26/2018 [facility] HEMATOLOGY Hgb 10.3 12.0 - 16.0 02/26/2018 [facility] HEMATOLOGY RBC 4.09 4.20 - 5.40 02/26/2018 [facility] HEMATOLOGY Hct 31.4 36.0 - 48.0 02/26/2018 [facility] HEMATOLOGY Eosinophils # 0.2 0.0 - 0.5 02/26/2018 [facility] HEMATOLOGY Microcyte 1+ *ABN* (02/26/18 3:29 AM) None Seen 02/26/2018 [facility] HEMATOLOGY Segs 60.1 45.0 - 75.0 02/26/2018 [facility] HEMATOLOGY Lymphocytes 29.8 20.0 - 40.0 02/26/2018 [facility] HEMATOLOGY Monocytes # 0.4 0.0 - 0.8 02/26/2018 [facility] HEMATOLOGY Eosinophils 3.3 0.0 - 4.0 02/26/2018 [facility] HEMATOLOGY Basophils 0.6 0.0 - 1.0 02/26/2018 [facility] HEMATOLOGY Neutrophils # 3.4 1.5 - 8.1 02/26/2018 [facility] HEMATOLOGY Lymphocytes # 1.7 1.0 - 5.5 02/26/2018 [facility] HEMATOLOGY Monocytes 6.2 2.0 - 12.0 02/26/2018 [facility] LIPIDS VLDL 29 02/26/2018 [facility] LIPIDS LDL (Calculated) 35 <=99 mg/dL 02/26/2018 [facility] LIPIDS Chol 97 <=199 mg/dL 02/26/2018 [facility] LIPIDS HDL 33 >=61 mg/dL 02/26/2018 [facility] LIPIDS Trig 144 <=149 mg/dL 02/26/2018 [facility] LIPIDS CHD Risk 2.94 3.90 - 5.80 02/26/2018 [facility] SPECIAL CHEMISTRY Hgb A1C 8.6 <=5.6 % 02/26/2018 [facility] TOXICOLOGY Digoxin Lvl 0.9 0.8 - 2.0 02/26/2018 [facility] URINE AND STOOL UA RBC 1 0 - 2 02/26/2018 [facility] URINE AND STOOL UA WBC 1 0 - 5 02/26/2018 [facility] URINE AND STOOL UA Hyal Cast 1 0 - 2 02/26/2018 [facility] URINE AND STOOL UA Bacteria Occasional /HPF None Seen /HPF 02/26/2018 [facility] URINE AND STOOL UA Urobilinogen 2.0 0.1 - 1.0 02/26/2018 [facility] URINE AND STOOL UA Ketones Negative mg/dL Negative mg/dL 02/26/[address] [facility] [address] URINE AND STOOL UA Protein Negative mg/dL Negative mg/dL 02/26/[address] [facility] [address] URINE AND STOOL UA Glucose Negative mg/dL Negative mg/dL 02/26/[address] [facility] [address] URINE AND STOOL UA Blood Negative (02/25/18 7:25 PM) Negative 02/26/2018 [facility] URINE AND STOOL UA Bili Negative *NA* (02/25/18 7:25 PM) Negative 02/26/2018 [facility] URINE AND STOOL UA Sq Epi Occasional /LPF Few /LPF 02/26/2018 [facility] URINE AND STOOL UA Nitrite Negative (02/25/18 7:25 PM) Negative 02/26/2018 [facility] URINE AND STOOL UA Leuk Est Negative (02/25/18 7:25 PM) Negative 02/26/2018 [facility] URINE AND STOOL UA pH 5.0 5.0 - 8.0 02/26/2018 [facility] URINE AND STOOL UA Color Yellow *NA* (02/25/18 7:25 PM) Yellow 02/26/2018 [facility] URINE AND STOOL UA Turbidity Clear (02/25/18 7:25 PM) Clear 02/26/2018 [facility] URINE AND STOOL UA Spec Grav 1.019 <=1.030 02/26/2018 [facility] CARDIAC ENZYMES BNP 92 <=100 pg/mL 02/25/2018 [facility] CARDIAC ENZYMES Troponin-I 0.03 0.00 - 0.40 02/25/2018 [facility] CARDIAC ENZYMES Total CK 58 12 - 191 02/25/2018 [facility] CHEM PANEL eGFR 53 02/25/2018 Result Comment: The eGFR is calculated using the CKD-EPI formula. In most young, healthy individuals the eGFR will be >90 mL/min/1.73m2. The eGFR declines with age. An eGFR of 60-89 may be normal in some populations, particularly the elderly, for whom the CKD-EPI formula has not been extensively validated. Use of the eGFR is not recommended in the following populations:

Individuals with unstable creatinine concentrations, including patients and those with serious co-morbid conditions.

Patients with extremes in muscle mass or diet.

The data above are obtained from the National Kidney Disease Education Program (NKDEP) which additionally recommends that when the eGFR is used in patients with extremes of body mass index for purposes of drug dosing, the eGFR should be multiplied by the estimated BMI. [facility] CHEM PANEL Bili Total 0.7 0.2 - 1.3 02/25/2018 [facility] CHEM PANEL CO2 25 24 - 32 02/25/2018 [facility] CHEM PANEL AST 31 0 - 37 02/25/2018 [facility] CHEM PANEL Alk Phos 108 39 - 136 02/25/2018 [facility] CHEM PANEL Total Protein 8.1 6.4 - 8.4 02/25/2018 [facility] CHEM PANEL ALT 23 0 - 65 02/25/2018 [facility] CHEM PANEL Albumin Lvl 3.8 3.5 - 5.0 02/25/2018 [facility] CHEM PANEL Calcium Lvl 8.8 8.5 - 10.5 02/25/2018 [facility] CHEM PANEL Creatinine Lvl 1.05 0.50 - 1.40 02/25/2018 [facility] CHEM PANEL BUN 24 7 - 22 02/25/2018 [facility] CHEM PANEL Glucose Lvl 167 70 - 99 02/25/2018 [facility] CHEM PANEL Potassium Lvl 4.5 3.5 - 5.1 02/25/2018 [facility] CHEM PANEL Sodium Lvl 141 135 - 145 02/25/2018 [facility] CHEM PANEL Chloride Lvl 102 95 - 109 02/25/2018 [facility] CHEM PANEL AGAP 18.5 10.0 - 20.0 02/25/2018 [facility] CHEM PANEL B/C Ratio 23 6 - 25 02/25/2018 [facility] CHEM PANEL A/G Ratio 0.9 0.7 - 1.6 02/25/2018 [facility] CHEM PANEL Globulin 4.3 2.7 - 4.2 02/25/2018 [facility] HEMATOLOGY Basophils 0.6 0.0 - 1.0 02/25/2018 [facility] HEMATOLOGY Neutrophils # 4.5 1.5 - 8.1 02/25/2018 [facility] HEMATOLOGY Monocytes 5.5 2.0 - 12.0 02/25/2018 [facility] HEMATOLOGY Lymphocytes 16.2 20.0 - 40.0 02/25/2018 [facility] HEMATOLOGY Eosinophils 1.1 0.0 - 4.0 02/25/2018 [facility] HEMATOLOGY Eosinophils # 0.1 0.0 - 0.5 02/25/2018 [facility] HEMATOLOGY Monocytes # 0.3 0.0 - 0.8 02/25/2018 [facility] Lymphocytes # 0.9 1.0 - 5.5 02/25/2018 [facility] Microcyte 1+ *ABN* (02/25/18 1:36 PM) None Seen 02/25/2018 [facility] Segs 76.6 45.0 - 75.0 02/25/2018 [facility] PTT 44.1 22.9 - 35.8 02/25/2018 [facility] MPV 8.9 7.4 - 10.4 02/25/2018 [facility] WBC 5.8 3.7 - 10.4 02/25/2018 [facility] RBC 4.25 4.20 - 5.40 02/25/2018 [facility] MCHC 32.3 32.0 - 36.0 02/25/2018 [facility] RDW 17.0 11.5 - 14.5 02/25/2018 [facility] Platelet 148 133 - 450 02/25/2018 [facility] Hct 32.5 36.0 - 48.0 02/25/2018 [facility] Hgb 10.5 12.0 - 16.0 02/25/2018 [facility] MCV 76.6 80.0 - 98.0 02/25/2018 [facility] MCH 24.7 27.0 - 31.0 02/25/2018 [facility] INR 2.05 0.85 - 1.17 02/25/2018 [facility] PT 23.3 12.0 - 14.7 02/25/2018 [facility] CHEM PANEL eGFR 51 12/01/2014 <sup>1</sup>Result Comment: The eGFR is calculated using the CKD-EPI formula. In most young, healthy individuals the eGFR will be >90 mL/min/1.73m2. The eGFR declines with age. An eGFR of 60-89 may be normal in some populations, particularly the elderly, for whom the CKD-EPI formula has not been extensively validated. Use of the eGFR is not recommended in the following populations:& lt;br/>
Individuals with unstable creatinine concentrations, including patients and those with serious co-morbid conditions.

Patients with extremes in muscle mass or diet.

The data above are obtained from the National Kidney Disease Education Program (NKDEP) which additionally recommends that when the eGFR is used in patients with extremes of body mass index for purposes of drug dosing, the eGFR should be multiplied by the estimated BMI. [facility] CHEM PANEL BUN 31 7 - 22 12/01/2014 [facility] CHEM PANEL Creatinine Lvl 1.1 0.5 - 1.4 12/01/2014 [facility] CHEM PANEL CO2 25 24 - 32 12/01/2014 [facility] CHEM PANEL Calcium Lvl 8.6 8.5 - 10.5 12/01/2014 [facility] CHEM PANEL Glucose Lvl 135 70 - 99 12/01/2014 <sup>4</sup>Interpretive Data: Adult ref erence range values reflect the clinical guidelines
of the [place] [employer]. [facility] CHEM PANEL Potassium Lvl 3.8 3.5 - 5.1 12/01/2014 [facility] CHEM PANEL Chloride Lvl 99 95 - 109 12/01/2014 [facility] CHEM PANEL Sodium Lvl 134 135 - 145 12/01/2014 [facility] CHEM PANEL AGAP 13.8 10.0 - 20.0 12/01/2014 [facility] Monocytes # 0.5 0.0 - 0.8 12/01/2014 [facility] HEMATOLOGY Eosinophils # 0.2 0.0 - 0.5 12/01/2014 [facility] Lymphocytes 25.5 20.0 - 40.0 12/01/2014 [facility] Monocytes 8.0 2.0 - 12.0 12/01/2014 [facility] HEMATOLOGY Segs 63.1 45.0 - 75.0 12/01/2014 [facility] Eosinophils 3.1 0.0 - 4.0 12/01/2014 [facility] Microcyte 1+ *ABN* (12/01/14 3:40 AM) None Seen 12/01/2014 [facility] HEMATOLOGY Segs-Bands # 4.0 1.5 - 8.1 12/01/2014 [facility] HEMATOLOGY Basophils 0.3 0.0 - 1.0 12/01/2014 [facility] Lymphocytes # 1.6 1.0 - 5.5 12/01/2014 [facility] HEMATOLOGY PT 29.4 12.0 - 14.7 12/01/2014 [facility] INR 2.68 0.85 - 1.17 12/01/2014 <sup>9</sup>Interpretive Data: RECOMMEND ED RANGES FOR PROTIME INR:
2.0-3.0 for most medical and surgical thromboembolic states.
2.5-3.5 for artificial heart valves and recurrent embolism.

INR SHOULD BE USED ONLY FOR PATIENTS ON STABLE ANTICOAGULANT THERAPY. [facility] Platelet 141 133 - 450 12/01/2014 [facility] MPV 8.8 7.4 - 10.4 12/01/2014 [facility] Hct 28.5 36.0 - 48.0 12/01/2014 [facility] MCHC 33.3 32.0 - 36.0 12/01/2014 [facility] RDW 17.9 11.5 - 14.5 12/01/2014 [facility] MCV 75.7 80.0 - 98.0 12/01/2014 [facility] MCH 25.2 27.0 - 31.0 12/01/2014 [facility] WBC 6.4 3.7 - 10.4 12/01/2014 [facility] RBC 3.76 4.20 - 5.40 12/01/2014 [facility] Hgb 9.5 12.0 - 16.0 12/01/2014 [facility] ELECTROLYTES Sodium Lvl 138 135 - 145 11/30/2014 [facility] ELECTROLYTES Potassium Lvl 3.8 3.5 - 5.1 11/30/2014 [facility] ELECTROLYTES Chloride Lvl 101 95 - 109 11/30/2014 [facility] ELECTROLYTES eGFR 51 11/30/2014 <sup>2</sup>Result Comment: The eGFR is calculated using the CKD-EPI formula. In most young, healthy individuals the eGFR will be >90 mL/min/1.73m2. The eGFR declines with age. An eGFR of 60-89 may be normal in some populations, particularly the elderly, for whom the CKD-EPI formula has not been extensively validated. Use of the eGFR is not recommended in the following populations:& lt;br/>
Individuals with unstable creatinine concentrations, including patients and those with serious co-morbid conditions.

Patients with extremes in muscle mass or diet.

The data above are obtained from the National Kidney Disease Education Program (NKDEP) which additionally recommends that when the eGFR is used in patients with extremes of body mass index for purposes of drug dosing, the eGFR should be multiplied by the estimated BMI. [facility] ELECTROLYTES Bili Total 0.6 0.2 - 1.3 11/30/2014 [facility] ELECTROLYTES Glucose Lvl 118 70 - 99 11/30/2014 <sup>5</sup>Interpretive Data: Adult ref erence range values reflect the clinical guidelines
of the [place] [employer]. [facility] ELECTROLYTES BUN 28 7 - 22 11/30/2014 [facility] ELECTROLYTES Albumin Lvl 3.1 3.5 - 5.0 11/30/2014 [facility] ELECTROLYTES ALT 31 0 - 65 11/30/2014 [facility] ELECTROLYTES AST 38 0 - 37 11/30/2014 [facility] ELECTROLYTES Calcium Lvl 8.6 8.5 - 10.5 11/30/2014 [facility] ELECTROLYTES Total Protein 7.4 6.4 - 8.4 11/30/2014 [facility] ELECTROLYTES Alk Phos 74 39 - 136 11/30/2014 [facility] ELECTROLYTES Creatinine Lvl 1.1 0.5 - 1.4 11/30/2014 [facility] ELECTROLYTES CO2 27 24 - 32 11/30/2014 [facility] ELECTROLYTES A/G Ratio 0.7 0.7 - 1.6 11/30/2014 [facility] ELECTROLYTES Globulin 4.3 2.0 - 4.0 11/30/2014 [facility] ELECTROLYTES AGAP 13.8 10.0 - 20.0 11/30/2014 [facility] ELECTROLYTES B/C Ratio 25 6 - 25 11/30/2014 [facility] HEMATOLOGY Eosinophils 3.1 0.0 - 4.0 11/30/2014 [facility] HEMATOLOGY Monocytes 11.3 2.0 - 12.0 11/30/2014 [facility] HEMATOLOGY Lymphocytes 23.3 20.0 - 40.0 11/30/2014 [facility] HEMATOLOGY Segs 61.9 45.0 - 75.0 11/30/2014 [facility] HEMATOLOGY Microcyte 1+ *ABN* (11/30/14 4:14 AM) None Seen 11/30/2014 [facility] HEMATOLOGY Eosinophils # 0.2 0.0 - 0.5 11/30/2014 [facility] HEMATOLOGY Basophils 0.4 0.0 - 1.0 11/30/2014 [facility] HEMATOLOGY Segs-Bands # 3.5 1.5 - 8.1 11/30/2014 [facility] Lymphocytes # 1.3 1.0 - 5.5 11/30/2014 [facility] HEMATOLOGY Monocytes # 0.6 0.0 - 0.8 11/30/2014 [facility] HEMATOLOGY RDW 17.9 11.5 - 14.5 11/30/2014 [facility] MCHC 33.2 32.0 - 36.0 11/30/2014 [facility] MCV 76.2 80.0 - 98.0 11/30/2014 [facility] MCH 25.3 27.0 - 31.0 11/30/2014 [facility] Hct 31.3 36.0 - 48.0 11/30/2014 [facility] MPV 9.0 7.4 - 10.4 11/30/2014 [facility] Platelet 126 133 - 450 11/30/2014 [facility] RBC 4.11 4.20 - 5.40 11/30/2014 [facility] Hgb 10.4 12.0 - 16.0 11/30/2014 [facility] WBC 5.7 3.7 - 10.4 11/30/2014 [facility] INR 2.52 0.85 - 1.17 11/30/2014 <sup>10</sup>Interpretive Data: RECOMMEN DED RANGES FOR PROTIME INR:
2.0-3.0 for most medical and surgical thromboembolic states.
2.5-3.5 for artificial heart valves and recurrent embolism.

INR SHOULD BE USED ONLY FOR PATIENTS ON STABLE ANTICOAGULANT THERAPY. [facility] HEMATOLOGY PT 28.0 12.0 - 14.7 11/30/2014 [facility] SPECIAL CHEMISTRY Hgb A1C 7.6 <=5.6 % 11/30/2014 [facility] CHEM PANEL Procalcitonin Lvl 0.25 0.00 - 0.10 11/29/2014 [facility] INR 2.48 0.85 - 1.17 11/29/2014 <sup>11</sup>Interpretive Data: RECOMMEN DED RANGES FOR PROTIME INR:
2.0-3.0 for most medical and surgical thromboembolic states.
2.5-3.5 for artificial heart valves and recurrent embolism.

INR SHOULD BE USED ONLY FOR PATIENTS ON STABLE ANTICOAGULANT THERAPY. [facility] HEMATOLOGY PT 27.6 12.0 - 14.7 11/29/2014 [facility] CARDIAC ENZYMES Troponin-I 0.03 0.00 - 0.40 11/29/2014 [facility] CARDIAC ENZYMES Total CK 300 12 - 191 11/29/2014 [facility] CARDIAC ENZYMES CK MB Index 0.3 0.0 - 2.5 11/29/2014 [facility] CARDIAC ENZYMES CK MB 1.0 0.5 - 3.6 11/29/2014 [facility] CARDIAC ENZYMES Troponin-I 0.04 0.00 - 0.40 11/29/2014 [facility] CARDIAC ENZYMES Total CK 278 12 - 191 11/29/2014 [facility] CARDIAC ENZYMES CK MB Index 0.4 0.0 - 2.5 11/29/2014 [facility] CARDIAC ENZYMES CK MB 1.2 0.5 - 3.6 11/29/2014 [facility] LIPIDS VLDL 21 11/29/2014 [facility] LIPIDS HDL 41 >=61 mg/dL 11/29/2014 [facility] LIPIDS LDL (Calculated) 27 <=99 mg/dL 11/29/2014 [facility] LIPIDS CHD Risk 2.17 3.90 - 5.80 11/29/2014 [facility] LIPIDS Trig 106 <=149 mg/dL 11/29/2014 [facility] LIPIDS Chol 89 <=199 mg/dL 11/29/2014 [facility] URINE AND STOOL UA Urobilinogen <=1.0 mg/dL 0.1 - 1.0 11/29/2014 [facility] URINE AND STOOL UA Color Ltyellow 11/29/2014 [facility] URINE AND STOOL UA Bili Negative *NA* (11/28/14 8:35 PM) Negative 11/29/2014 [facility] URINE AND STOOL UA Sq Epi Occasional /LPF Few /LPF 11/29/2014 [facility] URINE AND STOOL UA Nitrite Negative (11/28/14 8:35 PM) Negative 11/29/2014 [facility] URINE AND STOOL UA Leuk Est Trace *ABN* (11/28/14 8:35 PM) Negative 11/29/2014 [facility] URINE AND STOOL UA Blood Negative (11/28/14 8:35 PM) Negative 11/29/2014 [facility] URINE AND STOOL UA Bacteria Occasional /HPF None Seen /HPF 11/29/[address] [facility] [address] URINE AND STOOL UA Mucus Few /LPF None Seen /LPF 11/29/2014 [facility] URINE AND STOOL UA WBC <1 0 - 5 11/29/2014 [facility] URINE AND STOOL UA Glucose Negative mg/dL Negative mg/dL 11/29/[address] [facility] [address] URINE AND STOOL UA Ketones Negative mg/dL Negative mg/dL 11/29/[address] [facility] [address] URINE AND STOOL UA Protein Negative mg/dL Negative mg/dL 11/29/[address] [facility] [address] URINE AND STOOL UA Spec Grav 1.009 <=1.030 11/29/2014 [facility] URINE AND STOOL UA pH 5.0 5.0 - 8.0 11/29/2014 [facility] URINE AND STOOL UA Turbidity Clear (11/28/14 8:35 PM) Clear 11/29/2014 [facility] CARDIAC ENZYMES CK MB Index 0.3 0.0 - 2.5 11/29/2014 [facility] CARDIAC ENZYMES BNP 151 <=100 pg/mL 11/29/2014 <sup>8</sup>Interpretive Data: Elevated results are in line with increasing severity of
congestive heart failure. Minor elevations between 100 and 300
may be seen with Myocardial Ischemia, Sodium retaining drugs,
and compensated/treated heart failure. [facility] CARDIAC ENZYMES Troponin-I 0.05 0.00 - 0.40 11/29/2014 [facility] CARDIAC ENZYMES CK MB 0.6 0.5 - 3.6 11/29/2014 [facility] CARDIAC ENZYMES Total CK 207 12 - 191 11/29/2014 [facility] CHEM PANEL Phosphorus 2.9 2.5 - 4.5 11/29/2014 [facility] CHEM PANEL Magnesium Lvl 2.0 1.8 - 2.4 11/29/2014 [facility] HEMATOLOGY PTT 69.0 22.9 - 35.8 11/29/2014 <sup>12</sup>Interpretive Data: Heparin Therapeutic Range: 57 - 92 Seconds [facility] CHEM PANEL Lactic Acid Lvl 4.0 0.5 - 2.2 11/28/2014 <sup>7</sup>Result Comment: Critical Res ult(s) called to Mendy Plunkett at 11/28/2014 18:46 byDB. Read back OK. [facility] CHEM PANEL Total Protein 7.6 6.4 - 8.4 11/28/2014 [facility] CHEM PANEL ALT 25 0 - 65 11/28/2014 [facility] CHEM PANEL AST 30 0 - 37 11/28/2014 [facility] CHEM PANEL Alk Phos 72 39 - 136 11/28/2014 [facility] CHEM PANEL Bili Total 0.7 0.2 - 1.3 11/28/2014 [facility] CHEM PANEL BUN 25 7 - 22 11/28/2014 [facility] CHEM PANEL eGFR 42 11/28/2014 <sup>3</sup>Result Comment: The eGFR is calculated using the CKD-EPI formula. In most young, healthy individuals the eGFR will be >90 mL/min/1.73m2. The eGFR declines with age. An eGFR of 60-89 may be normal in some populations, particularly the elderly, for whom the CKD-EPI formula has not been extensively validated. Use of the eGFR is not recommended in the following populations:& lt;br/>
Individuals with unstable creatinine concentrations, including patients and those with serious co-morbid conditions.

Patients with extremes in muscle mass or diet.

The data above are obtained from the National Kidney Disease Education Program (NKDEP) which additionally recommends that when the eGFR is used in patients with extremes of body mass index for purposes of drug dosing, the eGFR should be multiplied by the estimated BMI. [facility] CHEM PANEL Calcium Lvl 8.8 8.5 - 10.5 11/28/2014 [facility] CHEM PANEL Albumin Lvl 3.6 3.5 - 5.0 11/28/2014 [facility] CHEM PANEL Potassium Lvl 4.0 3.5 - 5.1 11/28/2014 [facility] CHEM PANEL Creatinine Lvl 1.3 0.5 - 1.4 11/28/2014 [facility] CHEM PANEL Chloride Lvl 99 95 - 109 11/28/2014 [facility] CHEM PANEL Sodium Lvl 134 135 - 145 11/28/2014 [facility] CHEM PANEL CO2 24 24 - 32 11/28/2014 [facility] CHEM PANEL Glucose Lvl 186 70 - 99 11/28/2014 <sup>6</sup>Interpretive Data: Adult ref erence range values reflect the clinical guidelines
of the [place] [employer]. [facility] CHEM PANEL Globulin 4.0 2.0 - 4.0 11/28/2014 [facility] CHEM PANEL B/C Ratio 19 6 - 25 11/28/2014 [facility] CHEM PANEL A/G Ratio 0.9 0.7 - 1.6 11/28/2014 [facility] CHEM PANEL AGAP 15.0 10.0 - 20.0 11/28/2014 [facility] HEMATOLOGY MCHC 33.5 32.0 - 36.0 11/28/2014 [facility] HEMATOLOGY RDW 18.1 11.5 - 14.5 11/28/2014 [facility] HEMATOLOGY MCH 25.6 27.0 - 31.0 11/28/2014 [facility] HEMATOLOGY Hct 29.0 36.0 - 48.0 11/28/2014 [facility] HEMATOLOGY RBC 3.80 4.20 - 5.40 11/28/2014 [facility] HEMATOLOGY Hgb 9.7 12.0 - 16.0 11/28/2014 [facility] HEMATOLOGY WBC 4.9 3.7 - 10.4 11/28/2014 [facility] HEMATOLOGY MCV 76.4 80.0 - 98.0 11/28/2014 [facility] HEMATOLOGY Platelet 123 133 - 450 11/28/2014 [facility] HEMATOLOGY MPV 9.4 7.4 - 10.4 11/28/2014 [facility] HEMATOLOGY Microcyte 1+ *ABN* (11/28/14 5:56 PM) None Seen 11/28/2014 [facility] HEMATOLOGY Monocytes # 0.5 0.0 - 0.8 11/28/2014 [facility] HEMATOLOGY Segs-Bands # 3.6 1.5 - 8.1 11/28/2014 [facility] HEMATOLOGY Basophils 0.4 0.0 - 1.0 11/28/2014 [facility] HEMATOLOGY Lymphocytes # 0.6 1.0 - 5.5 11/28/2014 [facility] HEMATOLOGY Lymphocytes 13.2 20.0 - 40.0 11/28/2014 [facility] HEMATOLOGY Segs 74.8 45.0 - 75.0 11/28/2014 [facility] HEMATOLOGY Eosinophils 0.5 0.0 - 4.0 11/28/2014 [facility] HEMATOLOGY Monocytes 11.1 2.0 - 12.0 11/28/2014 [facility] CHEMISTRY A/G Ratio 1.0 0.7 - 1.6 10/04/2012 Normal [facility] CHEMISTRY Globulin 4.2 2.0 - 4.0 10/04/2012 [facility] CHEMISTRY Albumin Lvl 4.1 3.5 - 5.0 10/04/2012 Normal [facility] CHEMISTRY Total Protein 8.3 6.4 - 8.4 10/04/2012 Normal [facility] CHEMISTRY Alk Phos 110 39 - 136 10/04/2012 Normal [facility] CHEMISTRY ALT 38 0 - 65 10/04/2012 Normal [facility] CHEMISTRY Bili Total 0.5 0.2 - 1.3 10/04/2012 Normal [facility] CHEMISTRY B/C Ratio 30 6 - 25 10/04/2012 [facility] CHEMISTRY AGAP 12.0 10.0 - 20.0 10/04/2012 Normal [facility] CHEMISTRY AST 30 0 - 37 10/04/2012 Normal [facility] CHEMISTRY Calcium Lvl 9.1 8.5 - 10.5 10/04/2012 Normal [facility] CHEMISTRY Creatinine Lvl 0.9 0.5 - 1.4 10/04/2012 Normal [facility] CHEMISTRY BUN 27 7 - 22 10/04/2012 [facility] CHEMISTRY CO2 29 24 - 32 10/04/2012 Normal [facility] CHEMISTRY Glucose Lvl 134 70 - 99 10/04/2012 [facility] <sup>2</sup>Interpretive Data: Adult ref erence range values reflect the clinical guidelines
of the [place] [employer]. [facility] CHEMISTRY eGFR 66 10/04/2012 NA <sup>1</sup>Result Comment: The eGFR is calculated using the CKD-EPI formula. In most young, healthy individuals the eGFR will be >90 mL/min/1.73m2. The eGFR declines with age. An eGFR of 60-89 may be normal in some populations, particularly the elderly, for whom the CKD-EPI formula has not been extensively validated. Use of the eGFR is not recommended in the following populations:& lt;br/>
Individuals with unstable creatinine concentrations, including patients and those with serious co-morbid conditions.

Patients with extremes in muscle mass or diet.

The data above are obtained from the National Kidney Disease Education Program (NKDEP) which additionally recommends that when the eGFR is used in patients with extremes of body mass index for purposes of drug dosing, the eGFR should be multiplied by the estimated BMI. [facility] CHEMISTRY Potassium Lvl 4.0 3.5 - 5.1 10/04/2012 Normal [facility] CHEMISTRY Sodium Lvl 141 135 - 145 10/04/2012 Normal [facility] CHEMISTRY Chloride Lvl 104 95 - 109 10/04/2012 Normal [facility] URINALYSIS UA Turbidity Clear (10/03/2012 20:34:00) Clear 10/04/2012 Normal [facility] URINALYSIS UA Color Yello w *NA* (10/03/2012 20:34:00) Yellow 10/04/2012 NA [facility] URINALYSIS UA pH 5.5 5.0 - 8.0 10/04/2012 Normal [facility] URINALYSIS UA Protein Negat kash mg/dL (10/03/2012 20:34:00) Negati ve 10/04/2012 [facility] URINALYSIS UA Spec Grav 1.015 <=1.030 10/04/2012 [facility] URINALYSIS UA Ketones Negat kash mg/dL *NA* (10/03/2012 20:34:00) Negati ve 10/04/2012 NA [facility] URINALYSIS UA Glucose Negat kash mg/dL (10/03/2012 20:34:00) Negati ve 10/04/2012 Normal [facility] URINALYSIS UA Blood Negat kash (10/03/2012 20:34:00) Negati ve 10/04/2012 [facility] URINALYSIS UA Bili Negat kash *NA* (10/03/2012 20:34:00) Negati ve 10/04/2012 NA [facility] URINALYSIS UA Urobilinogen 0.2 0.1 - 1.0 10/04/2012 [facility] URINALYSIS UA Leuk Est Negat kash (10/03/2012 20:34:00) Negati ve 10/04/2012 [facility] URINALYSIS UA Nitrite Negat kash (10/03/2012 20:34:00) Negati ve 10/04/2012 [facility] URINALYSIS UA Mucus None Seen (10/03/2012 20:34:00) None S een 10/04/2012 [facility] URINALYSIS UA Bacteria None Seen (10/03/2012 20:34:00) None S een 10/04/2012 Normal [facility] URINALYSIS UA WBC 0-2 / HPF (10/03/2012 20:34:00) 0 - 5 10/04/2012 [facility] URINALYSIS UA Sq Epi Few / LPF (10/03/2012 20:34:00) Few 10/04/2012 [facility] URINALYSIS UA RBC None Seen (10/03/2012 20:34:00) 0 - 2 10/04/2012 Normal [facility] HEMATOLOGY MPV 8.5 7.4 - 10.4 10/04/2012 Normal [facility] HEMATOLOGY WBC 6.9 3.7 - 10.4 10/04/2012 Normal [facility] HEMATOLOGY Hct 33.4 36.0 - 48.0 10/04/2012 LOW [facility] HEMATOLOGY RBC 4.27 4.20 - 5.40 10/04/2012 Normal [facility] HEMATOLOGY Hgb 10.6 12.0 - 16.0 10/04/2012 LOW [facility] HEMATOLOGY MCH 24.9 27.0 - 31.0 10/04/2012 LOW [facility] HEMATOLOGY MCHC 31.8 32.0 - 36.0 10/04/2012 [facility] HEMATOLOGY MCV 78.3 81.0 - 99.0 10/04/2012 LOW [facility] HEMATOLOGY RDW 18.6 11.5 - 14.5 10/04/2012 HI [facility] HEMATOLOGY Platelet 198 133 - 450 10/04/2012 Normal [facility] HEMATOLOGY Monocytes 5.5 2.0 - 12.0 10/04/2012 Normal [facility] HEMATOLOGY Segs 62.9 45.0 - 75.0 10/04/2012 Normal [facility] HEMATOLOGY Lymphocytes 28.9 20.0 - 40.0 10/04/2012 Normal [facility] HEMATOLOGY Segs-Bands # 4.3 1.5 - 8.1 10/04/2012 Normal [facility] HEMATOLOGY Lymphocytes # 2.0 1.0 - 5.5 10/04/2012 Normal [facility] HEMATOLOGY Eosinophils 2.2 0.0 - 4.0 10/04/2012 Normal [facility] HEMATOLOGY Basophils 0.5 0.0 - 1.0 10/04/2012 Normal [facility] HEMATOLOGY Basophils # 0.0 0.0 - 0.2 10/04/2012 Normal [facility] HEMATOLOGY Eosinophils # 0.1 0.0 - 0.5 10/04/2012 Normal [facility] HEMATOLOGY Monocytes # 0.4 0.0 - 0.8 10/04/2012 Normal [facility] HEMATOLOGY PT 14.2 12.0 - 14.7 10/04/2012 Normal [facility] HEMATOLOGY INR 1.08 0.85 - 1.17 10/04/2012 Normal <sup>3</sup>Interpretive Data: RECOMMEND ED RANGES FOR PROTIME INR:
2.0-3.0 for most medical and surgical thromboembolic states.
2.5-3.5 for artificial heart valves and recurrent embolism.

INR SHOULD BE USED ONLY FOR PATIENTS ON STABLE ANTICOAGULANT THERAPY. [facility] Pathology Reports No Data Provided for This Section Diagnostic Reports Report Value Date Source Chest 2 views DX PROCEDURE INF ORMATION: Exam: XR Chest, 2 Views Exam date and time: 10/05/2019 12:51 PM Age: 74 years old Clinical indication: Cough; Additional info: /cough TECHNIQUE: Imaging protocol: XR of the chest Views: 2 views. PA and Lateral COMPARISON: CR CHEST 1VIEW DX 07/06/2019 8:39 PM FINDINGS: Tubes, catheters and devices: A left chest wall single lead pacemaker is present with a right ventricular lead. Lungs: Linear subsegmental atelectasis or scarring at the bilateral lung bases is not significantly changed. No focal airspace consolidation. Pleural space: There is a trace right pleural effusion or pleural thickening. No appreciable pneumothorax. Heart/Mediastinum: A TAVR is present. A mitral valve prosthesis is seen. The cardiomediastinal silhouette is moderately enlarged, but stable. Bones/joints: Median sternotomy wires are present. IMPRESSION: 1. Trace right pleural effusion or pleur al thickening. 2. Moderate cardiomegaly. 3. Stable bibasilar scarring or subsegme ntal atelectasis. Marina Briscoe MD On 10/05/2019 13:01:59; [id number] 10/05/2019 [place] [place] Sacrum/coccyx series DX PROCED URE INFORMATION: Exam: XR Sacrum and Coccyx, 2 or More Views Exam date and time: 10/05/2019 12:51 PM Age: 74 years old Clinical indication: Injury or trauma; Additional info: /coccyx FX TECHNIQUE: Imaging protocol: XR of the sacrum and coccyx, 2 or more views. COMPARISON: None. FINDINGS: Bones/joints: The sacrum and coccyx are poorly visualized on the frontal views due to overlying bowel gas and stool, limiting exam. No definite acute fracture identified. Sacroiliac joints are unremarkable. Soft tissues: Unremarkable. Gastrointestinal tract: Notes: If there is further concern, may consider followup radiographs or CT for complete assessment. IMPRESSION: Limited exam without definite acute osseous abnormality of the sacrum/coccyx. Akash Ward MD On 10/05/2019 13:21:24; [id number] 10/05/2019 [facility] [place] Chest 1[facility] DX PROCEDURE INFOR MATION: Exam: XR Chest, 1 View Exam date and time: 07/06/2019 8:39 PM Age: 73 years old Clinical indication: Shortness of breath; Left-sided chest pain; Patient HX: HX of HTN, dm, afib, pacemaker, open heart surgery, heart valve replacement, cad, left sided stroke; Additional info: /chest pain TECHNIQUE: Imaging protocol: XR of the chest Views: 1 view. COMPARISON: CR CHEST 1VIEW DX 04/30/2019 5:07 PM FINDINGS: Tubes, catheters and devices: Implanted pacemaker left chest wall with lead extending into the right ventricle. Lungs: No acute infiltrate. Pleural space: No pleural effusion or pneumothorax. Heart/Mediastinum: See Bones/joints Finding. Vasculature: Aortic valvuloplasty. Mitral annuloplasty. Bones/joints: Prior sternotomy. Cardiomegaly. Pulmonary vasculature is congested although there is no pulmonary edema noted. No acute bony abnormality. IMPRESSION: Cardiomegaly with pulmonary vascular congestion, but no significant pulmonary edema. Arsalan Ceja MD On 07/06/2019 21:05:18; [id number] 07/06/2019 [facility] Chest 1view DX EXAM: XR CHEST 1 VIEW DATE: 04/30/2019 3:13 PM CONDITIONING MACHINE OPERATOR INDICATION: Arrhythmias - s/p TAVR COMPARISON: Serial chest radiographs with the most recent dated same day at 1106 hours. TECHNIQUE: AP view of the chest FINDINGS: Vascular stent is now seen projecting over the mediastinum. The remaining support devices are stable and intact. This is a low lung volume exam. There is calcification of the aortic arch. Bilateral bibasilar streaky atelectasis is again seen with increased interstitial markings. There is no pleural effusion. IMPRESSION: Low lung volumes with unchanged bibasilar atelectasis with increase changes of pulmonary edema. 04/30/2019 [facility] Chest 1view DX EXAM: XR CHEST 1 VIEW DATE: 04/30/2019 9:56 CONDITIONING MACHINE OPERATOR INDICATION: Heart failure - pre TAVR. TECHNIQUE: Chest 1 view FINDINGS: Comparison is made to 01/30/2019. Cardiac silhouette is enlarged but unchanged. Stable postoperative findings. Aortic arch calcification. A left subclavian pacemaker remains in place. Mild bilateral lower lobe platelike atelectasis. The lungs are otherwise clear. No pleural effusions. IMPRESSION: Mild bilateral lower lobe platelike atelectasis. 04/30/2019 [facility] Heart/coronary art TAVR CTA EX AM: CTA HEART WITH CONTRAST DATE: 04/10/2019 11:33 CONDITIONING MACHINE OPERATOR INDICATION: - aortic stenosis. Aortic stenosis, TAVR candidate. COMPARISON: No prior CT heart available for comparison. TECHNIQUE: Contrast imaging was performed on a [employer] Aquilion [address] scanner utilizing a single breath hold, at 780 mA and 100 kVp. Retrospective ECG gating was performed, at a heart rate of 60 bpm. Images were reformatted at 0.5 mm intervals and sent to the [employer] workstation for interpretation of both systolic and diastolic phases. IV contrast: 90 mL of Visipaque 320 contrast was delivered intravenously at 5.0 mL/sec followed by a 50 mL normal saline bolus chaser. DLP: 2078.1 mGy-cm STUDY QUALITY: Diagnostic FINDINGS: Aortic root landmarks (dimensions determined in systolic phases) Aortic valve: Trifleaflet: Symmetriccalcified; bulky leaflet: No; right/left/noncoronary Aortic annulus: 28.3 x 23.1 mm; average 24.2 mm; area 4.61 sq cm; circumference 80.5 mm Sino-tubular junction: 32.6 x 28.8 mm; average 30.9 mm Ao annulus to coronary height: left main: 16.5 mm; right: 9.92 mm Ao annulus to STJ length: 25.6 mm Sinuses of Valsalva: width 30.7 x 30 x 28.8 mm Ascending aorta width at 40 mm from annulus: 37.3 x 32.8 mm Coplanar TAVR angle: DANISH 2 CAU 11 Coronary Arteries: This patient has a right dominant system, with normal origins of the coronary arteries. Basal septal hypertrophy: yes Severe hypertrophy (1.5 cm wall thickness): 1.5 cm Intracardiac masses: none Other cardiac findings: There is severe biatrial enlargement with right atrial predominance. 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 Scattered coronary calcifications are noted. Pacemaker: Left subclavian approach AICD terminates in the right ventricle. Artificial valve: Yes; Location: Mitral valve Intracardiac closure device: None. IMPRESSION: 1. Trileaflet symmetrically calcified a ortic valve and with aortic annular measurements as described above. 2. Severe biatrial enlargement and basi lar septal hypertrophy. 3. Postsurgical changes following coron arlene artery bypass graft. 4. Scattered coronary calcifications ar e noted. Please refer to coronary angiogram report for dedicated findings. 5. Please refer to same date CT angiogr am for evaluation of noncardiac findings. This report was made in conjunction with Dr. Aiden Bridges. 04/10/2019 [facility] Chest/Abd/Pelvis TAVR CTA EXAM : VIR CT angiogram thorax abdomen and pelvis. TAVR protocol INDICATION: 73 years old Female with aortic stenosis TECHNIQUE: Following the administration of intravenous contrast, 3 mm slices from the thoracic inlet through the pubic symphysis were obtained in arterial phase. Images are reviewed on 3D workstation. COMPARISON: CT abdomen pelvis performed October 03, 2012, simultaneously performed cardiac CTA April 10, 2019 FINDINGS: Vascular Measurements: Ascending aorta: 37 mm x 37 mm Aortic arch: 27 mm x 27 mm Mid-descending thoracic aorta: 26 mm x 23 mm Aorta at diaphragm: 27 mm x 25 mm Aorta at celiac axis: 23 mm x 23 mm Aorta at superior mesenteric artery: 18 mm x 18 mm Mid-infrarenal aorta: 14 mm x 14 mm Right common iliac artery: 8 mm x 8 mm Right external iliac artery: 7 mm x 6 mm Right common femoral artery: 6 mm x 7 mm Left common iliac artery: 9 mm x 8 mm Left external iliac artery: 7 mm x 6 mm Left common femoral artery: 7 mm x 6 mm Right subclavian artery: 10 mm x 8 mm Left subclavian artery: 7 mm x 8 mm Calcific scores: Ascending aorta: 2 Aortic arch: 3 Descending thoracic aorta: 2 Aorta at diaphragm: 2 Suprarenal abdominal aorta: 2 Infrarenal abdominal aorta: 3 0 :none 1 :punctate calcifications 2 : <50% of vessel circumference is conf luent calcification 3 : >50% of vessel circumference is conf luent calcification Other vascular findings: Bovine arch variant. Moderate atherosclerotic disease involving the aorta. Nonvascular findings: Lower neck: The visible portions or the lower neck and thyroid are unremarkable. Axilla: Clear. Airway: Patent. Lungs and pleura: Small right pleural effusion. Scattered groundglass opacities and intralobular septal thickening is seen in the lower lobes bilaterally. There is a nodular opacity in the left lower lobe measuring 5 mm (series 8 image 80). Mediastinum, azalea and intrathoracic lymph nodes: No enlarged mediastinal lymph nodes are appreciated. Heart, pericardium and great vessels: Marked cardiomegaly. For findings within the heart, refer to the simultaneously performed cardiac CTA. Liver: Normal. Dilated hepatic vein, likely related to heart failure. Biliary tree: No intra- or extrahepatic biliary ductal dilation. Gallbladder: Not visualized. Pancreas: Normal. Spleen: Splenule is present. Splenomegaly, measures 13.7 cm in the craniocaudal direction. Adrenals: Normal. Kidneys and ureters: Bilateral subcentimeter hypodensities within the kidneys are too small to characterize and statistically, are most likely wholesale representative of simple renal cysts. Multifocal areas of cortical thinning are seen throughout the kidneys bilaterally, likely the sequela of scarring from prior infection. Bladder: Normal. Reproductive organs: Multiple vascular calcifications are seen throughout the uterus. The visualized adnexa are unremarkable. Uterine fibroid is seen in the fundus measuring 7 mm. Multiple smaller calcified fibroids are visualized as well. Gastrointestinal tract: Stomach: Normal. Small bowel: Normal. Colon: Uninflamed diverticula. Appendix: Normal Peritoneum, mesentery and retroperitoneum: Trace fluid is seen in the dependent pelvis and could be physiologic. Lymph nodes: Normal. Bones: No acute abnormality. Soft tissues: Large fat-containing umbilical hernia. IMPRESSION: 1. Arterial measurements as described a katy. For findings within the heart, refer to the simultaneously performed cardiac CTA. 2. Moderate atherosclerosis of the abdo elina and thoracic aorta. 3. Bilateral lung base predominant grou ndglass opacities and septal thickening likely represents pulmonary edema. 4. Questionable 5 mm nodule in the left lower lobe. Optional CT can be performed to 12 months to document stability. 04/10/2019 [facility] Chest 1view DX Chest 1view DX CLINICAL HISTORY: - trauma, dizziness w/ fall and head injury COMPARISON: none FINDINGS: Limited AP portable study. Support Devices: Stable position of left-sided cardiac device. Lungs: There is mild bibasilar scarring. No consolidation or any significant effusion. Cardiomediastinum: Moderate cardiac silhouette enlargement. Poststernotomy changes. Bone and Soft Tissues: No acute bony abnormality is noted. IMPRESSION: No acute abnormality is noted. SL: MCHAWLA-JAMISON 01/30/2019 [facility] Brain wo contrast CT Patient N alyssa: KAREN MENON : 1945; Age: 73 years y/o Female MR: [id number] Study: Brain wo contrast CT 01/30/2019 15:06 CDT Ordering Physician: ITZEL Lozano Clinical Indication: - trauma, dizziness w/ fall and head injury; Comparison: 02/25/2018 TECHNIQUE: CT images were obtained from the foramen magnum to the vertex without the use of intravenous contrast on a multidetector CT. Coronal and sagittal reconstructions were obtained. CT imaging performed at this location utilizes radiation dose optimization techniques which include one or more of the following: -Automated exposure control -Adjustment of the mA and/or kV accordin g to patient size -Use of iterative reconstruction techniq ue CT Radiation Dose DLP 982 mGy-cm FINDINGS: There is no evidence of acute intracranial hemorrhage, subacute territorial infarct, mass effect, midline shift, or extra-axial fluid collection. Please note that acute infarcts can be occult on CT. There is moderate volume loss with associated ventricular prominence. There are moderate nonspecific supratentorial white matter ill-defined hypodensities likely representing chronic small vessel ischemic changes in this age. There is moderate-sized encephalomalacia in the right anterior frontal lobe including the right precentral gyrus. Multiple chronic lacunar insults in the thalami.. There are calcifications in the carotid siphons and intradural vertebral arteries. The calvarium, paranasal sinuses and mastoids are unremarkable. IMPRESSION: No acute intracranial process identified. Moderate-sized old right frontal infarct and moderate chronic microangiopathy. If there is further concern for intracranial pathology or acute stroke, further assessment with an MRI of the brain should be considered. SL: [id number] 01/30/2019 [facility] wo contrast CT EXAM: CT BRAIN WITHOUT CONTRAST DATE: 02/25/2018 1:23 PM CDT INDICATION: - generalized paresthesias, hx CVA. ADDITIONAL INFORMATION: . COMPARISON: None. TECHNIQUE: Routine axial CT images of the brain were obtained. IV contrast: None. CT imaging performed at this location utilizes radiation dose optimization techniques which include one or more of the following: -Automated exposure control -Adjustment of the mA and/or kV accordin g to patient size -Use of iterative reconstruction techniq ue CT Radiation Dose DLP 1023.99 mGy-cm FINDINGS: Non-contrast images of the head demonstrate no edema, hemorrhage, mass lesion or other acute intracranial abnormality. Old right frontal infarct is present. Diffuse cerebral atrophy and mild chronic small vessel ischemic change is present. Kiser-white matter distinction is preserved. The ventricles are normal. The basal cisterns and sulci are normal in size. Marked atherosclerotic calcification of the distal internal carotid and vertebral arteries. Empty sella is present which is a normal variant. Mild mucosal thickening of the ethmoid air cells. Partial opacification of the mastoid air cells. IMPRESSION: 1. No definite acute infarct or intracra nial hemorrhage detected. 2. Old right frontal infarct is present. Diffuse cerebral atrophy and mild chronic small vessel ischemic change is present. If there is further concern for intracranial pathology or acute stroke, MRI of the brain may be performed for complete assessment. SL: [id number] 02/25/2018 [facility] Breast Mammo Scrn ASHLEY incl CAD MA BILATERAL DIGITAL SCREENING MAMMOGRAM WITH CAD: 05/14/2017 CLINICAL: /Screen. Current study was evaluated with a Computer Aided Detection (CAD) system. COMPARISON:Comparison is made to exams dated: 02/06/2011 mammogram, 04/12/2008 mammogram, 04/09/2007 mammogram, and 04/08/2006 mammogram - [facility]. TECHNIQUE: Mammographic views were obtained using digital acquisition. [employer] Version 1.3 was utilized for computer aided detection. FINDINGS: The tissue of both breasts is heterogeneously dense, which could obscure detection of small masses. Technologist indicates the exam is limited secondary to the patient's underlying medical condition of a prior stroke. Optimal positioning was not allowed and the patient had difficulty holding still. Best images obtained were submitted. Benign appearing densities are noted in both breasts. Left cardiac device/pacemaker is present. There are benign vascular calcifications and calcifications in both breasts. No significant masses, calcifications, or other findings are seen in either breast. There has been no significant interval change. IMPRESSION: BENIGN RECOMMENDATION:There is no mammographic evidence of malignancy. A 1 year screening mammogram is recommended.(05/15/2018) This exam was interpreted at [id number] for [facility] [place]. Edita pratt/rosanna:05/14/2017 11:32:56 Bar Tacker(s): Tamera [place] [facility] letter sent: BI-RADS 1/2 Mammogram BI-RADS: 2 Benign 05/14/2017 [facility] Chest 2 views DX PA and LATERA L CHEST (2 views) HISTORY: Cough and fever A prior study of 06/16/2008 was reviewed. FINDINGS: 1. Findings consistent with congestive f ailure. There is moderate cardiomegaly, pulmonary vascular congestion, and mild hazy perihilar opacities, probable perihilar edema. 2. Poststernotomy changes. There is a pr osthetic mitral valve. 3. No focal infiltrates or pleural effus ions. 4. There is a left subclavian single stan d transvenous pacemaker. 5. The regional skeleton is unremarkable . Coding: Chest 2 views CPT Code: 51541 SL: 12 Vishal Bhatia M.D. 11/28/2014 [facility] Abdomen/Pelvis wo contrast CT CT ABDOMEN AND PELVIS WITHOUT CONTRAST: CLINICAL HISTORY: Abdominal pain, acute TECHNIQUE AND FINDINGS: Multiple contiguous transaxial noncontrast CT images were obtained through the abdomen and pelvis. COMPARISON: No prior similar examinations are currently available for comparison. CT ABDOMEN WITHOUT CONTRAST: 1. Moderate cardiomegaly status post lat eral valve replacement and coronary artery bypass grafting. 2. Normal caliber nonopacified abdominal aorta with mild atherosclerotic vascular calcifications. 3. A specific bowel gas pattern with sca ttered mildly thickwalled and prominent small bowel loops. Underdistended appropriately thick-walled stomach. The appendix is not visualized with certainty, but no pericecal inflammatory change is present. 4. Scattered subcentimeter retroperitone al and mesenteric lymph nodes. 5. Mild bilateral renal cortical atrophy and scarring. 6. Normal nonenhanced liver, pancreas, s pleen, and adrenal glands. 7. Mild bilateral basilar subsegmental a telectasis and scarring. CT PELVIS WITH CONTRAST: 1. Normal underdistended nonopacified ur inary bladder. 2. Normal uterus and adnexa. 3. Small fat containing periumbilical he rnia. 4. No lymphadenopathy or mass. 5. Mild lumbar spondylosis and facet art hrosis. No acute fracture, dislocation, or focal osseous lesion is appreciated. SL:14 10/03/2012 [facility] Consultation Notes No Data Provided for This Section Discharge Summaries No Data Provided for This Section History and Physicals No Data Provided for This Section Vital Signs Vital Sign Value Date Comments Source Temperature Oral (F) 97.6 F 07/07/2019 [facility] Heart Rate 58 07/07/2019 [facility] Respitory Rate 18 07/07/2019 [facility] Systolic (mm Hg) 155 07/07/2019 [facility] Diastolic (mm Hg) 69 07/07/2019 [facility] Heart Rate 64 07/07/2019 [facility] Respitory Rate 16 07/07/2019 [facility] Systolic (mm Hg) 157 07/07/2019 [facility] Diastolic (mm Hg) 85 07/07/2019 [facility] Temperature Oral (F) 97.7 F 07/07/2019 [facility] Heart Rate 59 07/07/2019 [facility] Respitory Rate 16 07/07/2019 [facility] Systolic (mm Hg) 132 07/07/2019 [facility] Diastolic (mm Hg) 76 07/07/2019 [facility] BMI Calculated 23.79 07/07/2019 [facility] Height 160.02 cm 07/07/2019 [facility] Weight 60.909 07/07/2019 [facility] BMI Calculated 23.79 07/07/2019 [facility] Temperature Oral (F) 98.0 F 07/07/2019 [facility] Height 160.02 cm 07/07/2019 [facility] BMI Calculated 23.79 07/07/2019 [facility] Weight 60.909 07/07/2019 [facility] Temperature Oral (F) 97.7 F 05/01/2019 [facility] Systolic (mm Hg) 168 05/01/2019 [facility] Diastolic (mm Hg) 72 05/01/2019 [facility] Systolic (mm Hg) 154 05/01/2019 [facility] Diastolic (mm Hg) 65 05/01/2019 [facility] Systolic (mm Hg) 134 05/01/2019 [facility] Diastolic (mm Hg) 66 05/01/2019 [facility] Temperature Oral (F) 98.0 F 05/01/2019 [facility] Respitory Rate 30 05/01/2019 [facility] Respitory Rate 19 05/01/2019 [facility] Temperature Oral (F) 98.1 F 05/01/2019 [facility] Respitory Rate 18 05/01/2019 [facility] Height 160.02 cm 04/30/2019 [facility] Weight 60.455 04/30/2019 [facility] BMI Calculated 23.61 04/30/2019 [facility] Heart Rate 63 04/10/2019 [facility] Respitory Rate 15 04/10/2019 [facility] Systolic (mm Hg) 113 04/10/2019 [facility] Diastolic (mm Hg) 60 04/10/2019 [facility] Heart Rate 60 04/10/2019 [facility] Respitory Rate 16 04/10/2019 [facility] Systolic (mm Hg) 129 04/10/2019 [facility] Diastolic (mm Hg) 67 04/10/2019 [facility] Height 162.56 cm 04/10/2019 [facility] Weight 61.364 04/10/2019 [facility] BMI Calculated 23.22 04/10/2019 [facility] Respitory Rate 20 03/04/2019 [facility] Systolic (mm Hg) 120 03/04/2019 [facility] Diastolic (mm Hg) 66 03/04/2019 [facility] Respitory Rate 20 03/04/2019 [facility] Systolic (mm Hg) 119 03/04/2019 [facility] Diastolic (mm Hg) 60 03/04/2019 [facility] Respitory Rate 19 03/04/2019 [facility] Systolic (mm Hg) 120 03/04/2019 [facility] Diastolic (mm Hg) 60 03/04/2019 [facility] Temperature Oral (F) 98.1 F 03/04/2019 [facility] Temperature Oral (F) 98.5 F 03/04/2019 [facility] Height 162.56 cm 03/04/2019 [facility] Weight 59.545 03/04/2019 [facility] BMI Calculated 22.53 03/04/2019 [facility] Temperature Oral (F) 98.4 F 01/30/2019 [facility] Heart Rate 65 01/30/2019 [facility] Respitory Rate 16 01/30/2019 [facility] Systolic (mm Hg) 112 01/30/2019 [facility] Diastolic (mm Hg) 72 01/30/2019 [facility] Systolic (mm Hg) 107 01/30/2019 [facility] Diastolic (mm Hg) 65 01/30/2019 [facility] Heart Rate 60 01/30/2019 [facility] Respitory Rate 17 01/30/2019 [facility] Temperature Oral (F) 98.2 F 01/30/2019 [facility] Height 162.56 cm 01/30/2019 [facility] BMI Calculated 24.6 01/30/2019 [facility] Weight 65 0 01/30/2019 [facility] Weight 60 0 12/10/[facility] Height 160.02 cm 12/10/2018 [facility] BMI Calculated 23.43 12/10/2018 [facility] Respitory Rate 14 12/10/2018 [facility] Heart Rate 60 12/10/2018 [facility] Temperature Oral (F) 97.4 F 12/10/2018 [facility] Systolic (mm Hg) 114 12/10/2018 [facility] Diastolic (mm Hg) 70 12/10/2018 [facility] Height 160.02 cm 09/03/2018 [facility] Weight 65.455 09/03/2018 [facility] BMI Calculated 25.56 09/03/2018 [facility] Systolic (mm Hg) 117 09/03/2018 [facility] Diastolic (mm Hg) 73 09/03/2018 [facility] Temperature Oral (F) 97.4 F 09/03/2018 [facility] Respitory Rate 14 09/03/2018 [facility] Heart Rate 59 09/03/2018 [facility] Height 160.02 cm 05/02/2018 [facility] BMI Calculated 24.59 05/02/2018 [facility] Weight 62.955 05/02/2018 [facility] Temperature Oral (F) 98.3 F 05/02/2018 [facility] Heart Rate 68 05/02/2018 [facility] Respitory Rate 14 05/02/2018 [facility] Systolic (mm Hg) 142 05/02/2018 [facility] Diastolic (mm Hg) 70 05/02/2018 [facility] Height 160.02 cm 04/03/2018 [facility] Weight 63.239 04/03/2018 [facility] BMI Calculated 24.7 04/03/2018 [facility] Systolic (mm Hg) 122 04/03/2018 [facility] Diastolic (mm Hg) 64 04/03/2018 [facility] Heart Rate 60 04/03/2018 [facility] Temperature Oral (F) 98.0 F 04/03/2018 [facility] Respitory Rate 14 04/03/2018 [facility] Temperature Oral (F) 98.2 F 02/26/2018 [facility] Heart Rate 60 02/26/2018 [facility] Systolic (mm Hg) 108 02/26/2018 [facility] Diastolic (mm Hg) 58 02/26/2018 [facility] Respitory Rate 17 02/26/2018 [facility] Heart Rate 60 02/26/2018 [facility] Temperature Oral (F) 98.3 F 02/26/2018 [facility] Systolic (mm Hg) 114 02/26/2018 [facility] Diastolic (mm Hg) 53 02/26/2018 [facility] Respitory Rate 17 02/26/2018 [facility] Respitory Rate 17 02/26/2018 [facility] Heart Rate 60 02/26/2018 [facility] Systolic (mm Hg) 110 02/26/2018 [facility] Diastolic (mm Hg) 72 02/26/2018 [facility] Temperature Oral (F) 97.8 F 02/26/2018 [facility] Height 165.1 cm 02/26/2018 [facility] BMI Calculated 23.33 02/26/2018 [facility] Weight 63.6 02/26/2018 [facility] Weight 63.636 02/25/2018 [facility] BMI Calculated 24.85 02/25/2018 [facility] Height 160.02 cm 02/25/2018 [facility] BMI Calculated 25.58 01/01/2018 [facility] Weight 65.511 01/01/2018 [facility] Height 160.02 cm 01/01/2018 [facility] Respitory Rate 14 01/01/2018 [facility] Temperature Oral (F) 97.1 F 01/01/2018 [facility] Heart Rate 60 01/01/2018 [facility] Systolic (mm Hg) 111 01/01/2018 [facility] Diastolic (mm Hg) 68 01/01/2018 [facility] Weight 62.045 07/11/2017 [facility] BMI Calculated 24.23 07/11/2017 [facility] Height 160.02 cm 07/11/2017 [facility] Heart Rate 60 07/11/2017 [facility] Respitory Rate 14 07/11/2017 [facility] Temperature Oral (F) 98.2 F 07/11/2017 [facility] Systolic (mm Hg) 123 07/11/2017 [facility] Diastolic (mm Hg) 70 07/11/2017 [facility] BMI Calculated 25.1 07/05/2017 [facility] Weight 64.261 07/05/2017 [facility] Height 160.02 cm 07/05/2017 [facility] Temperature Oral (F) 100.9 F 07/05/2017 [facility] Heart Rate 84 07/05/2017 [facility] Respitory Rate 14 07/05/2017 [facility] Systolic (mm Hg) 145 07/05/2017 [facility] Diastolic (mm Hg) 75 07/05/2017 [facility] Temperature Oral (F) 99.5 F 06/21/2017 [facility] Respitory Rate 14 06/21/2017 [facility] Heart Rate 90 06/21/2017 [facility] Systolic (mm Hg) 135 06/21/2017 [facility] Diastolic (mm Hg) 79 06/21/2017 [facility] BMI Calculated 25.12 06/21/2017 [facility] Weight 64.318 06/21/2017 [facility] Height 160.02 cm 06/21/2017 [facility] Heart Rate 60 12/01/2014 [facility] Respitory Rate 18 12/01/2014 [facility] Systolic (mm Hg) 97 12/01/2014 [facility] Diastolic (mm Hg) 59 12/01/2014 [facility] Temperature Oral (F) 97.7 F 12/01/2014 [facility] Temperature Oral (F) 98.5 F 12/01/2014 [facility] Systolic (mm Hg) 113 12/01/2014 [facility] Diastolic (mm Hg) 65 12/01/2014 [facility] Heart Rate 63 12/01/2014 [facility] Respitory Rate 18 12/01/2014 [facility] Systolic (mm Hg) 106 12/01/2014 [facility] Diastolic (mm Hg) 67 12/01/2014 [facility] Respitory Rate 18 12/01/2014 [facility] Temperature Oral (F) 98.4 F 12/01/2014 [facility] Heart Rate 65 12/01/2014 [facility] BMI Calculated 23.32 11/29/2014 [facility] Weight 61.619 11/29/2014 [facility] Height 162.56 cm 11/29/2014 [facility] Weight 68.182 11/28/2014 [facility] Encounters Location Location Details Encounter Type Encounter Number Reason For Visit Attending Provider ADM Date DC Date Status Source [facility] Outpatient [id number] ROUTINE LIZBETH CARTER 02/06/2011 Active [facility] Outpatient [id number] ABDOMEN PAIN LIZBETH CARTER 09/09/2012 Active [facility] Emergency [id number] RAYNA KELLY 10/03/2012 10/04/2012 Discharged [facility] Inpatient [id number] Dave Foster 11/28/2014 12/01/2014 [facility] Outpatient [id number] ZHIHAO VICKY 12/07/2014 Active [facility] Outpatient [id number] ZHIHAO VICKY 02/25/2015 Active [facility] Outpatient [id number] ZHIHAO VICKY 06/03/2015 Active [facility] Outpatient [id number] ZHIHAO VICKY 09/02/2015 Active [facility] Outpatient [id number] ZHIHAO VICKY 12/02/2015 Active [facility] Outpatient [id number] ZHIHAO VICKY 03/01/2016 Active [facility] Outpatient [id number] ZHIHAO VICKY 06/01/2016 Active [facility] Outpatient [id number] GUADALUPE PERRY 07/30/2016 Active [facility] Outpatient [id number] GUADALUPE PERRY 11/05/2016 Active [facility] Outpatient [id number] GUADALUPE PERRY 12/18/2016 Active [facility] Outpatient [id number] GUADALUPE PERRY 03/21/2017 Active [facility] Outpatient [id number] GUADALUPE PERRY 04/03/2017 Active [facility] Outpatient [id number] Guadalupe Perry 05/14/2017 05/15/2017 [facility] Outpatient [id number] GUADALUPE PERRY 06/21/2017 Active [facility] Outpatient [id number] Guadalupe Perry 06/21/2017 06/22/2017 [facility] Phone Message [id number] 06/25/2017 06/27/2017 [facility] Phone Message [id number] 06/26/2017 06/28/2017 [facility] Outpatient [id number] GUADALUPE PRERY 07/05/2017 Active [facility] Outpatient [id number] Guadalupe Perry 07/05/2017 07/06/2017 [facility] Outpatient [id number] GUADALUPE PERRY 07/11/2017 Active [facility] Outpatient [id number] Guadalupe Perry 07/11/2017 07/12/2017 [facility] Phone Message [id number] 10/01/2017 10/03/2017 [facility] Phone Message [id number] 10/07/2017 10/09/2017 [facility] Outpatient [id number] GUADALUPE PERRY 10/24/2017 Active [facility] Ambulatory Pre-Reg [id number] Guadalupe Perry 10/24/2017 10/24/2017 [facility] Phone Message [id number] 11/05/2017 11/07/2017 [facility] Phone Message [id number] 12/20/2017 12/22/2017 [facility] Phone Message [id number] 12/30/2017 01/01/2018 [facility] Outpatient [id number] GUADALUPE PERRY 01/01/2018 Active [facility] Outpatient [id number] Guadalupe Perry 01/01/2018 01/02/2018 [facility] Primary [facility] Phone Message [id number] 01/31/2018 02/02/2018 [facility] Observation [id number] Jannet Enamorado 02/25/2018 02/26/2018 [facility] Outpatient [id number] GUADALUPE PERRY 04/03/2018 Active [facility] Outpatient [id number] Guadalupe Perry 04/03/2018 04/04/2018 [facility] Outpatient [id number] GUADALUPE PERRY 05/02/2018 Active [facility] Outpatient [id number] Guadalupe Perry 05/02/2018 05/03/2018 [facility] Primary [facility] Phone Message [id number] 06/17/2018 06/19/2018 [facility] Phone Message [id number] 07/01/2018 07/03/2018 [facility] Outpatient [id number] GUADALUPE PERRY 07/03/2018 Active [facility] Primary [facility] Ambulatory Pre-Reg [id number] Guadalupe Perry 07/03/2018 07/03/2018 [facility] Outpatient [id number] GUADALUPE PERRY 08/12/2018 Active [facility] Primary [facility] Ambulatory Pre-Reg [id number] Guadalupe Perry 08/12/2018 08/12/2018 [facility] Primary [facility] Phone Message [id number] 08/13/2018 08/15/2018 [facility] Outpatient [id number] Guadalupe Perry 09/03/2018 Active [facility] Primary [facility] Outpatient [id number] Guadalupe Perry 09/03/2018 09/04/2018 [facility] Primary [facility] Phone Message [id number] 11/25/2018 11/27/2018 [facility] Outpatient [id number] Guadalupe Perry 12/10/2018 Active [facility] Primary [facility] Outpatient [id number] Guadalupe Perry 12/10/2018 12/11/2018 [facility] Emergency [id number] Chance Hurley 01/30/2019 01/30/2019 [facility] Outpatient [id number] Eugenie Rojas 03/04/2019 03/04/2019 [facility] Outpatient [id number] Anthony Dhoble 04/10/2019 04/11/2019 [facility] Phone Message [id number] 04/14/2019 04/16/2019 [facility] Inpatient [id number] Anthony Dhoble 04/30/2019 05/02/2019 [facility] Observation [id number] Dave Cristian 07/07/2019 07/07/2019 [facility] Primary [facility] Phone Message [id number] 08/14/2019 08/16/2019 [facility] Outpatient Imaging [place] [facility] [id number] 00 Karina Donohue 10/05/2019 10/06/2019 [facility] [id number] 12/17/2019 12/19/2019 [facility] ROSA [id number]/[id number]/564 .00/789.[address] [facility] Procedures Procedure Code Date Perfomer Comments Source Diabetic retinopathy screening<sup>1</sup> [id number] 02/08/2017 [facility], [facility] OPI [place] Mitral valve operation<sup>2</sup> [id number] 05/27/[address] [facility] OPI [place] Cardiac pacemaker procedure 23 [id number] [facility] [place] Cholecystectomy [id number] [facility] O[facility] [place] Operation on uterus<sup>3</sup> [id number] tumor jose antonio kenneth [facility] OPI [place] Assessment and Plan Assessment and Plan Date Source Extracted from:Title: Clinical Document Author: Samara Ho NP Date: 07/07/19 [facility] Cardiology Consultation / History and Physical Addendum Patient seen and examined with the Nurse Practitioner. I agree with the essential components of history, physical examination, diagnosis and treatment plan. I agree with the patient's care and plan as documented by the Nurse Practitioner. Patient is well-known to me and had a prior cath with normal coronary arteries. She has a recent TAVR and normal functioning bioprosthetic aortic valve on recent echocardiogram in the office. She presents with diastolic heart failure exacerbation. She normally takes Lasix 40 mg daily. But she has had mild lower extremity edema and shortness of breath. Her volume status seems to be much improved with just a couple doses of IV Lasix. She also has a history of mechanical mitral valve and INRs have been at goal. At this time okay to discharge home and continue current dose of oral Lasix Eugenie Rojas MD [facility] Chief Complaint: Shortness of breath, sharp chest pain Reason for Consult: Chest pain, CHF evaluation HPI: 73-year-old female who is followed by Dr Héctor Rojas in the office recently seen last month. She has a past medical history of TAVR 04/2019, Mild plaque per heart cath 2018, mechanical mitral valve replacement in 2011, chronic atrial fibrillation on Coumadin, pacemaker ([employer]), hypertension, hyperlipidemia, diabetes type 2 and CVA 2008 who was admitted with shortness of breath and sharp, poking pain to the left side of her chest. We were consulted to evaluate the chest pain and heart failure management. Troponin have been negative for 2 sets. BNP is 110. INR is 2.37 this morning. EKG shows ventricular paced. Recent echo done in the office showed an LVEF of 50 to 55% with abnormal diastolic filling pattern, normal functioning prosthetic aortic valve in normal functioning mitral mechanical mitral valve with moderate to severe tricuspid regurgitation present. At home she takes aspirin 81 mg, atorvastatin 20 mg, Lasix 40 mg, losartan 25 mg, metoprolol 25 mg twice a day, digoxin 0.125 mg daily and warfarin 6 mg daily with 7.5 mg Saturday and Saturday. She became short of breath yesterday and noticed her feet were a little swollen. As for the chest pain, it did not occur with exertion. It occurred while at rest and lasted more than 30 minutes for approximately 3 times with the last time being in the ER. She has not had any of the sharp pain since last night while waiting in the ER. She received one dose of IV Lasix in the ER and states her breathing is better. She is no longer short of breath. Bankruptcy Legal Assistant: Dr. Rojas Past Medical History: Hypertension Diabetes CVA (cerebral vascular accident) Insomnia Past Surgical History: Diabetic retinopathy screenin02/08/17 Mitral valve operation: 2011 Cholecystectomy Operation on uterus Cardiac pacemaker procedure Home Medications: No qualifying data available Allergies: Allergies: NKFA, No Known Medication Allergies Social History: Alcohol Details: Never Tobacco Details: Use: Never smoker. Previous treatment: None. Ready to change: No. Household tobacco concerns: No. Tobacco smoke exposure: None. Did the Patient Smoke Cigarettes Anytime During the Last 365 Days? Yes. Cessation Counseling Provided? No. Substance Abuse Details: Use: None. Family History: Father: Diabetes mellitus Mother: Diabetes mellitus; Hypertension Brother: Diabetes mellitus Sister: Diabetes mellitus Review of Systems: General/Constitutional: Fatigue - no Weakness - no. Weight gain - no. Headaches - no Fever - no Allergy/Immunology: Colds - no. Cough - no. HEENT/Neck: Dizziness - no. Change in vision - no. Respiratory: Chest congestion - no Cough - no. Pain with breathing - no. Shortness of breath - yes. Swelling of the legs - no. Wheezing - no. Cardiovascular: Chest pain - yes. Claudication - no. Dyspnea on exertion - no. Palpitations - no. Gastrointestinal: Abdominal pain - no. Change in bowel habits - no. Constipation - no. Diarrhea - no. Nausea - no. Hematology: Easy bleeding - no. Easy bruising - no. Musculoskeletal: Back pain - no. Myalgias - no Vitals Tmp(F) Pulse BP RR SpO2 FIO2 07/07 09:28 ---- 64 ----- -- --- --- 07/07 09:19 ---- 64 157/85 1 6 --- --- 07/07 08:17 97.7 59 132/76 1 6 98 --- 07/07 02:20 98.0 60 156/67 1 8 98 --- 07/07 01:28 ---- --- ----- - - 98 --- 24 Hr Tmax: 98.1F (36.72c) at 07/06 19:3 8 Vital Signs are the last 5 in the past 48 hours. Physical Exam: General: Awake and alert, Oriented Neck: Supple, no JVD or Bruits Cardiovascular: Regular, normal S1 S2, No significant murmurs. Lungs: Clear bilaterally, no rales or wheezing Abdomen: Soft, NT/ND +BS Extremities: No edema, + peripheral pulses Neuro: No focal neurological abnormalities Labs: Labs (Last four charted values) WBC 4.1 (JUL 07) 5.1 (JUL 06) Hgb L 7.9 (JUL 07) L 8.4 (JUL 06) Hct L 25.2 (JUL 07) L 26.6 (JUL 06) Plt 153 (JUL 07) 162 (JUL 06) Na 141 (JUL 07) 137 (JUL 06) K 3.7 (JUL 07) 4.4 (JUL 06) CO2 29 (JUL 07) 27 (JUL 06) Cl 106 (JUL 07) 103 (JUL 06) Cr 0.94 (JUL 07) 1.13 (JUL 06) BUN H 28 (JUL 07) H 28 (JUL 06) Glucose Random H 160 (JUL 07) H 303 (JUL 06) Mg 1.9 (JUL 07) 1.9 (JUL 06) Phos 3.4 (JUL 07) Ca 9.2 (JUL 07) 8.8 (JUL 06) PT H 26.3 (JUL 07) H 24.2 (JUL 06) INR H 2.37 (JUL 07) H 2.13 (JUL 06) PTT H 48.5 (JUL 07) H 47.2 (JUL 06) Troponin <0.02 (JUL 07) <0.02 (JUL 06) Total CK 66 (JUL 06) Scheduled Medications: Scheduled Meds (14): 07/07/19 aspirin (aspirin 81 mg tablet, enteric coated) 81 mg PO Q24H 07/07/19 atorvastatin 10 mg PO Daily 07/07/19 calcium-vitamin D (calcium-iqra min D 600 mg-400 intl units oral tablet) 1 tab PO BID 07/07/19 digoxin (digoxin 125 mcg (0.125 mg) oral tablet) 125 microgram PO Daily 07/07/19 escitalopram 10 mg PO Daily 07/07/19 ferrous sulfate 325 mg PO Daily 07/07/19 insulin glargine (Lantus Solost ar Pen 100 units/mL subcutaneous solution) 30 unit SUB-Q Bedtime 0 ml/hr 07/07/19 latanoprost ophthalmic 1 drp ROSA TH EYES Bedtime 07/07/19 losartan 25 mg PO Daily 07/07/19 metoprolol (metoprolol tartrate ) 25 mg PO BID 07/07/19 pantoprazole (Protonix) 40 mg P O Daily 07/07/19 prednisoLONE ophthalmic 1 drp L EFT EYE TID 07/07/19 sodium chloride (Saline Flush 0 .9%) 10 ml IVP Q12H 07/08/19 warfarin 1 mg PO Q-M-- Continuous Infusions: Continuous Infusions: None Impression: 83-year-old female admitted with shortne ss of breath and sharp chest pain Atypical chest pain Shortness of breath Acute on chronic diastolic heart failure Chronic atrial fibrillation on Coumadin Hypertension Hyperlipidemia Diabetes, type II Outpatient cardiology: Dr. Rojas Plan: Patient was admitted with shortness of breath and sharp, poking pain to the left side of the heart. Her recent echo done in the office showed a EF of 50 to 55% with normal functioning bioprosthetic aortic valve and mechanical mitral valve. Troponin have been negative for 2 sets, we will trend for total of 3 sets. Her EKG shows a ventricularly paced rhythm. Currently she denies any chest pain or shortness of breath after receiving 40 mg of IV Lasix for 1 dose. Strict I's and O's with be monitored. She will monitored on telemetry while she is here. Her home medications have been resumed. Her warfarin will be adjusted as per her home dose of 6 mg daily and 7.5 mg Saturday and Saturday. Will give Lasix 40 mg IV twice a day. Will monitor renal function and electrolytes while on IV Lasix and replete electrolytes as needed. We will continue to monitor closely. Extracted from:Title: [facility] [employer] History and Physical Author: Chrissie Jeffrey MD Date: 07/07/19 1.Acute exacerbation of CHF (congestive heart failure)(I50.9) Ordered: 2.Chest pain(R07.9) Ordered: 3.Essential hypertension(I10) 4.Hyperlipemia, mixed(E78.2) 5.Type 2 diabetes mellitus(E11.9) 6.H/O: CVA(Z86.79) 7.Left hemiparesis(G81.94) 8.Atrial fibrillation, chronic(I48.2) 9.Anemia(D64.9) Patient admitted withacute CHF exacerbationand volume overload. Strict I's and O's. 1 L fluid restriction. Daily weights. Low-sodium diet. IV diuresiswith Lasix. Titrate as needed. Continue homeACE inhibitor and beta-juan. Telemetry. Troponin negativex1, will continue to trend.EKG NSR. Patient continues to complain of intermittent chest pain. Cardiology consulted. Appreciate further recommendations. Per protocol Patient is stable at this time. Anticipate hospitalization for at least one midnight. Discharge home pending clinical improvement. Time spent on H&P greater than 40 minutes. Chrissie Jeffrey MD [employer] 07/07/2019 [facility] Extracted from:Title: History and Physic al Author: Jose Olson MD Date: 04/30/19 73 yo F w/ severe ,diastolic HF, Mod T R, massive right atrium, s/p SJM PPM. s/p #27 mm SJM Mechanical MVR by DR. 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 STS PROM score was 5.6 being treated s/p TAVR. #Severe s/p TAVR w/ sing June 3 bioprostheitc valve -Usual post-TAVR care per standard tiffanie col, including intravenous hydration to prevent contrast induced nephropathy. - Restarting home warfarin 12/5 PM - DANNY s/p TAVR - Procedure results: - AV gradient mean: 61.6 -->2mmHg - Aortic valve area: 0.78 -->>4cm2 -Continue jeison-procedural IV antibiotics prophylaxis. - Aspirin 81 mg daily indefinitely - Cardiac rehabilitation after hospital discharge. #Diastolic HF #CVA with hand weakness #T2DM #HTN #HLD - On metforminand 30 insulin daily at [facility], 15 daily of insulin + SSI inpatient - Restarting other home meds DVT: Resume home warfarin and lovenox bridge GI: Daily omeprazole Home tomorrow pending stable overnight Addendum by Enmanuel Bo MD on 04/30/2019 21:47 CONDITIONING MACHINE OPERATOR Attending Attestation: I have seen the patient in collaboration with the house staff (resident and/or fellow). I have examined the patient independently, and have reviewed the history, radiographic and cardiac imaging, and diagnostic testing. I agree with the findings and plan outlined in the note by the resident/fellow. Extracted from:Title: Clinical Document Author: Jovany Donnelly MD Date: 04/30/19 SURGEON Co-Surgeon DATE OF OPERATION April 30, 2019 Isabella Donnelly M.D. Isabella Coelho M.D. PREOPERATIVE DIAGNOSIS: 1. Severe Aortic Stenosis 2. Moderate Tricuspid Regurgitation 3. Severe Mitral Regurgitation 4. S/P Mechanical MVR #27 SJM, 04/23/12 5. Coumadin Regimen 6. Hypertension 7. Hyperlipidemia 8. pAF 9. CVA 2009 with residual left hand weakness 10. Anemia 11. Hemoglobin 8.3 12. Diabetes Mellitus 13. Metformin and Lantus Regimen 14. FEV1 57% 15. Congestive heart failure, systolic, chronic NYHA class [III] 16. STS 5.6% (high risk) POSTOPERATIVE DIAGNOSIS: same NAME OF PROCEDURE: 1. Transcatheter aortic valve replacement (TAVR) utilizing a #26 Hsieh June S3 pericardial valve via right groin 2. Percutaneous access of the right a nd left common femoral artery 3. Percutaneous access of the right a nd left common femoral vein 4. Serial dilatation of the right com mon femoral artery for the 14 Prydeinig introducer FINDINGS AT THE TIME OF SURGERY: 1. Severe calcifications in the aortic valve. 2. The 14 Prydeinig delivery system was passed with no difficulty through the right common iliac artery into the left ventricular outflow tract for deployment. (Nominal: 7.5 Ivan) 3. Post replacement TTE revealed no paravalvular leak. 4. Post deployment aortogram revealed no issues with access vessels. INDICATIONS: The risk and benefits were explained to the patient. She understands these risks and agrees to proceed with surgical intervention. The patient was seen by myself, and Dr. Coelho and deemed high risk for conventional AVR. PROCEDURE IN DETAIL: Further details will be dictated by Dr. Coelho as he was the heavy equipment operator/paver. The patient was brought into the cardiac lab courier. A time-out procedure was performed which confirmed the patients name, MRN, and procedure to be performed. The patient was placed in the supine position on the operating table and administered local anesthesia. The chest, abdomen and groins were prepped and draped in the usual sterile manner. Access was obtained in the right common femoral artery, as well as right common femoral vein. Preclose devices were used (Proglide) at introduction for the device delivery side. Pacing was also placed in the left common femoral vein. Heparin was given intravenously, 1 mg/ml to maintain an ACT > 250 seconds. The right common femoral artery was prepared. Subsequently, test pacing was performed and obtained as expected at 180 beats per minute. An aortic angiogram root shot was performed, noting the optimal angle for deployment of the valve. Subsequently, the #26 mm Hsieh JUNE S3 transcatheter valve was placed into the sheath system in the RIGHT femoral artery and brought up through the aortic valve and placed in correct position. This was confirmed by the heart valve team. Subsequently, the rapid ventricular pacing was performed, and the valve was deployed in the aortic annulus appropriately. The cordis and sheath were pulled back. Post-placement TTE revealed good placement of the valve with no aortic insufficiency. Subsequently, the sheaths were removed. No issues were noted. All wounds were then closed and sterile dressings were applied. I was present as co surgeon in conjunction with Dr. Coelho. He will dictate their portions in detail of the procedure. The patient tolerated the procedure well and was taken to the Coronary Care Unit in stable condition. Sponge, needle and instrument counts x2 were correct. I was present for the entire procedure. Jovany Donnelly M.D. 05/02/2019 [facility] Extracted from:Title: Clinical Document Author: Eugenie Rojas MD Date: 03/04/19 Selective coronary angiogram Indication: Severe aortic stenosis Patient has a history of mechanical mitral valve replacement given that she was on Lovenox bridge prior to the procedure Procedure details: The patient was prepped and draped in the usual sterile fashion. Local lidocaine was used in the right groin. The right femoral artery was cannulated via micropuncture technique and ultrasound guidance technique. A 5 Prydeinig sheath was placed in the right femoral artery. A JL4.5 diagnostic catheter was used to cannulate the left coronary artery. Angiographic views were obtained. A JR4 catheter was used to engage the right coronary artery. Angiographic views were obtained. The JR4 catheter was used to cross the aortic valve. Hemodynamics were obtained in the left ventricle. We then measured gradients across the aortic valve. There was no gradient. A right iliofemoral angiogram showed above bifurcation vascular access. Hemostasis was obtained with the mynx closure device. Total radiation dose 401 mgray Total dye load 45 Visipaque Moderate sedation time 30 minutes Coronaries: Right dominant Left main-large angiographically normal LAD-mild plaque 10% to 20% Yjiionmbwj-mfxgmoos-hitdh vessel gives rise to obtuse marginal 1 2 and 3 minimal plaque YUQ-sjvhyksr-pnwhi vessel has mild plaque up to 10% in the midsegment Conclusions: Mild plaque with no significant CAD large coronary arteries Recommendation: Resume Lovenox and Coumadin today for mechanical mitral valve replacement Proceed with TAVR evaluation for severe aortic stenosis 03/04/2019 [facility] Extracted from:Title: Discharge Summary * Author: Jannet Enamorado MD Date: 02/26/18 Discharge Information Disposition home Condition stable Medications: See med reconciliation form Diet: Heart healthy Discharge Plan In the event of any worsening symptom patient was to come back to the ED for further evaluation Discharge summary to greater than 35-minute Extracted from:Title: Clinical Document Author: Eugenie Rojas MD Date: 02/26/18 Cardiology Consult Note [facility] Chief Complaint-? CVA HPI-This is a 72-year-old female who is well-known to me and followed by me in the office closely. She has a known history of mechanical mitral valve replacement back in [address] Giorgio's 27 mm mitral valve. She also has chronic atrial fibrillation and a [employer]. Giorgio's pacemaker. She is chronically anticoagulated with Coumadin as an outpatient as well and is on aspirin as well. Her INRs are usually followed closely with her PCP Dr. Perry. She also has known moderate aortic stenosis and mild congestive heart failure with LVEF 40- 45% she had a prior stroke in 2008 with residual weakness in left hand. I had in fact actually seen her in the office just last Saturday she had been feeling okay she had not been compliant with office follow-ups in the last year due to her daughter just having twins. However her daughter reported that she been compliant with all medications and been feeling fairly okay. Her daughter was actually leaving for [place] on Saturday. The family reports to me that over the course of the weekend the grandmother seemed a little bit fatigued she also seemed to question with depressed she did not change her close at all over the course of the weekend. Yesterday morning when she got up from bed she just felt weak all over and had numbness all over her body lasted for greater than 30 minutes she also was crying because of this the family called the ambulance by the time the ambulance came her the patient felt that the numbness had resolved. She denied any focal weakness. On admission she is paced to with underlying atrial fib her INR was mildly subtherapeutic at 2.01. She is usually on Coumadin 6 mg Saturday and 5 mg all other days. She has not missed any doses. Currently she appears comfortable but seems to have a depressed affect. Review of Systems General/Constitutional: Fatigue y. Weakness y. Weight gain no. Headaches no. Allergy/Immunology: Colds no. Cough no. HEENT/Neck: Dizziness no. Change in vision no. Respiratory: Chest congestion no. Cough no. Pain with breathing no. Shortness of breath no. Swelling of the legs no. Wheezing no. Cardiovascular: Chest pain no. Claudication no. Dyspnea on exertion ny. Palpitations no. Gastrointestinal: Abdominal pain no. Change in bowel habits no. Constipation no. Diarrhea no. Nausea no. Hematology: Easy bleeding no. Easy bruising no. Musculoskeletal: Back pain no. Myalgias no Past Medical History mechanicla mitral valve replacement aortic stenosis CHF LVEF 40% st Giorgio pacemaker Hypertension Diabetes CVA (cerebral vascular accident) Insomnia Past Surgical History Diabetic retinopathy screenin02/08/17 Mitral valve operation: 2011 Cholecystectomy Operation on uterus Cardiac pacemaker procedure Past Family History Father: Diabetes mellitus Mother: Diabetes mellitus; Hypertension Brother: Diabetes mellitus Sister: Diabetes mellitus Past Social History prior smoker No alcohol or drug use No qualifying data available Medications Continuous Infusions: None Scheduled Meds (11): 02/26/18 aspirin (aspirin 81 mg tablet, enteric coated) 81 mg PO Daily 02/26/18 atorvastatin 40 mg PO Bedtime 02/26/18 digoxin (digoxin 125 mcg (0.125 mg) oral tablet) 0.125 mg PO Daily 02/26/18 escitalopram 10 mg PO Daily 02/26/18 furosemide (furosemide 40 mg or al tablet) 40 mg PO Daily 02/26/18 insulin glargine (Lantus Solost ar Pen 100 units/mL subcutaneous solution) 25 unit SUB-Q Bedtime 0 ml/hr 02/26/18 losartan 25 mg PO Daily 02/26/18 metoprolol (Toprol-XL 25 mg ora l tablet, extended release) 25 mg PO Daily 02/26/18 pantoprazole (Protonix) 40 mg P O Before Breakfast 02/26/18 travoprost ophthalmic (Travatan Z 0.004% ophthalmic solution) 1 drp OPTH QPM 02/26/18 warfarin 5 mg PO Q5PM Allergies: NKDA Vitals Tmp(F) Pulse BP RR SpO2 FIO2 02/26 08:54 ---- 62 ----- -- --- --- 02/26 07:10 97.8 60 110/72 1 7 96 --- 02/26 03:30 98.3 60 104/59 1 6 98 --- 02/25 23:29 97.4 60 116/60 1 7 97 --- 02/25 19:06 98.3 62 111/59 1 7 99 --- 24 Hr Tmax: 99.1F (37.28c) at 02/25 12:5 9 Vital Signs are the last 5 in the past 48 hours. Physical exam General: Awake and Alert, NAD elderly HEENT: Neck Supple, No JVD CVS: Regular rate, Normal S1S2 ii/vi sm , + click LUNGS: CTA, No rales or wheezing ABD: Soft, Non-tender, + BS EXT: trace edema, + pedal pulses Skin: No ulcers Neuro: Awake and Alert, Oriented x 3 Labs (Last four charted values) WBC 5.7 (FEB 26) 5.8 (FEB 25) Hgb L 10.3 (FEB 26) L 10.5 (FEB 25) Hct L 31.4 (FEB 26) L 32.5 (FEB 25) Plt L 132 (FEB 26) 148 (FEB 25) Na 143 (FEB 26) 141 (FEB 25) K 3.9 (FEB 26) 4.5 (FEB 25) CO2 27 (FEB 26) 25 (FEB 25) Cl 103 (FEB 26) 102 (FEB 25) Cr 0.93 (FEB 26) 1.05 (FEB 25) BUN H 28 (FEB 26) H 24 (FEB 25) Glucose Random H 182 (FEB 26) H 167 (FEB 25) Mg 2.1 (FEB 26) Ca 8.9 (FEB 26) 8.8 (FEB 25) PT H 23.6 (FEB 26) H 23.3 (FEB 25) INR H 2.08 (FEB 26) H 2.05 (FEB 25) PTT H 44.1 (FEB 25) Troponin 0.03 (FEB 25) Total CK 58 (FEB 25) Impression 72-year-old female who presented with wh ole body numbness, she has a history of chronic atrial fibrillation, mechanical mitral valve replacement anticoagulant on Coumadin she is mildly subtherapeutic, has chronic systolic diastolic CHF LVEF 40% Plan Rule out CVA-her head CT was negative. Will await neurology consultation. Her symptoms seemed nonfocal to me. Nonetheless her INR is subtherapeutic her goal INR is 2.5-3.5. I would suggest that she increase his Coumadin to 6 mg daily and recheck her INR within 2 weeks with her PCP who follows her INRs very closely. She also need to be maintained on aspirin 81 mg daily. Chronic systolic diastolic CHF she appears euvolemic to only mildly volume overloaded to me on exam she denies shortness of breath or or any symptoms of volume overload Chronic atrial fibrillation rate controlled check digoxin level History of [employer] pacemaker has normal device function and his outpatient tests Extracted from:Title: General Admission H&P * Author: Jannet Enamorado MD Date: 02/25/18 Impression and Plan 1. Facial numbness and weakness rule ou t TIAneurology consulted, CT brain: Negative, carotid ultrasound: Unable to obtain MRI as the patient has a pacer, aspirin, statin 2. Type 2 diabetesinsulin sliding scal e, Accu-Cheks, A1c 3. Hypertensionstable, continue same h ome medications 4. History of A. fibrate controlled, w arfarin 5. Prophylaxiswarfarin 6. Fluid electrolytes nutrientsno IV f luids, heart healthy diet 7. PT/OTeval and treat 8. Dispositionobservation, neurology c onsulted 02/26/2018 [facility] Extracted from:Title: Clinical Document Author: Jeremy Peters MD Date: 12/01/14 Progress Note [facility] CC: follow u nader her hf SUBJECTIVE: pt seen/examined. no chest pain no sob. + cough OBJECTIVE: Vital Signs (last 24 hrs) Last Charted Temp Oral 97.7 DegF (DEC 01 12:00) Heart Rate Peripheral 60 bpm (DEC 01 12:) Resp Rate 18 BRMIN (DEC 01 12:) SBP 97 mmHg (DEC 01:) DBP L 59mmHg (DEC 01:) Medications: Scheduled Meds (16):aspirin (aspirin 81 mg tablet, enteric coated), atorvastatin, digoxin (digoxin 125 mcg (0.125 mg) oral tablet), escitalopram, furosemide (furosemide 40 mg oral tablet), guaiFENesin (Mucinex Max Strength), insulin detemir (Levemir FlexPen), ketOROLAC ophthalmic (ketOROLAC ophthalmic 0.5% solution), levofloxacin (Levaquin), losartan, metFORMIN, metoprolol (metoprolol tartrate), prednisoLONE ophthalmic (prednisoLONE acetate ophthalmic 1% suspension), travoprost ophthalmic (Travatan Z 0.004% ophthalmic solution), warfarin, warfarin Unscheduled Meds: None PRN Meds (16):Dextrose 50% in Water IV (Dextrose 50% Syringe), Dextrose 50% in Water IV (Dextrose 50% Syringe), LORazepam, acetaminophen (Tylenol), atropine, codeine-guaiFENesin, glucagon, insulin aspart, insulin aspart, insulin aspart, insulin aspart, insulin aspart, morphine Sulfate, nitroglycerin (nitroglycerin SL Tab), sodium chloride (Saline Flush 0.9%), tramadol (tramadol 50 mg oral tablet) One Time Meds: None Continuous Infusions: None Labs (Last four charted values) WBC 6.4 (DEC 01) 5.7 (NOV 30) 4.9 (NOV 28) Hgb L 9.5 (DEC 01) L 10.4 (NOV 30) L 9.7 (NOV 28) Hct L 28.5 (DEC 01) L 31.3 (NOV 30) L 29.0 (NOV 28) Plt 141 (DEC 01) L 126 (NOV 30) L 123 (NOV 28) Na L 134 (DEC 01) 138 (NOV 30) L 134 (NOV 28) K 3.8 (DEC 01) 3.8 (NOV 30) 4.0 (NOV 28) CO2 25 (DEC 01) 27 (NOV 30) 24 (NOV 28) Cl 99 (DEC 01) 101 (NOV 30) 99 (NOV 28) Cr 1.1 (DEC 01) 1.1 (NOV 30) 1.3 (NOV 28) BUN H 31 (DEC 01) H 28 (NOV 30) H 25 (NOV 28) Glucose Random H 135 (DEC 01) H 118 (NOV 30) H 186 (NOV 28) Mg 2.0 (NOV 28) Phos 2.9 (NOV 28) Ca 8.6 (DEC 01) 8.6 (NOV 30) 8.8 (NOV 28) PT H 29.4 (DEC 01) H 28.0 (NOV 30) H 27.6 (NOV 29) H 26.0 (NOV 28) INR H 2.68 (DEC 01) H 2.52 (NOV 30) H 2.48 (NOV 29) H 2.30 (NOV 28) PTT H 69.0 (NOV 28) Troponin 0.03 (NOV 29) 0.04 (NOV 29) 0.05 (NOV 28) CK MB 1.0 (NOV 29) 1.2 (NOV 29) 0.6 (NOV 28) Total CK H 300 (NOV 29) H 278 (NOV 29) H 207 (NOV 28) EXAM: HEENT: nc/at, eomi Neck: no jvd, supple Heart: s1s2, no murmurs, rubs, gallops Chest: clear to auscultation, no wheezes, rales, rhonchi Abd: NT, ND, soft, BS + Ext: no edema, clubbing, cyanosis Skin: no rash IMPRESSION: Bronchitis Sys and Sanz HF Afib Chest pain MVR - mitral valve replacement DM PLAN: she is back on her warfarin/lasix and her other home meds she is to continue with levaquin for a few days given her bronchitis follow up with her pcp and get an inr checked in a few days. she is to sd home today. Plan of care discussed with patient and nursing. 12/01/2014 [facility] Plan of Care No Data Provided for This Section Social History Social History Date Source Social History TypeResponse Alcohol Never Substance Abuse Use: None. Smoking Status Never smoker; Previous treatment: None; Ready to change: No; Concerns about tobacco use in household: No; Exposure to Tobacco Smoke None; Cigarette Smoking Last 365 Days Yes; Reg Smoking Cessation Counseling No entered on: 07/07/19 12/10/2018 [facility] Social History TypeResponse Alcohol Never Substance Abuse Use: None. Smoking Status Never smoker; Previous treatment: None; Ready to change: No; Concerns about tobacco use in household: No; Exposure to Tobacco Smoke None; Cigarette Smoking Last 365 Days Yes; Reg Smoking Cessation Counseling No entered on: 07/07/19 12/10/2018 [facility] Social History TypeResponse Alcohol Never Substance Abuse Use: None. Smoking Status Never smoker; Previous treatment: None; Ready to change: No; Concerns about tobacco use in household: No; Exposure to Tobacco Smoke None; Cigarette Smoking Last 365 Days Yes; Reg Smoking Cessation Counseling No entered on: 04/30/19 12/10/2018 [facility] Social History TypeResponse Alcohol Never Substance Abuse Use: None. Smoking Status Never smoker; Previous treatment: None; Ready to change: No; Concerns about tobacco use in household: No; Exposure to Tobacco Smoke None; Cigarette Smoking Last 365 Days Yes; Reg Smoking Cessation Counseling No entered on: 07/07/19 12/10/2018 [facility] [place] Family History No Data Provided for This Section Advance Directives No Data Provided for This Section Functional Status No Data Provided for This Section
--- OUTSIDE RECORDS SUMMARY | 2019-12-25 20:47 | XMS REPORT | Summary of Care ---
Author Author [facility] Organization [facility] Address Unknown Phone Unavailable Encounter CONTRERAS Gray(FIN) [id number] Date(s): 06/17/18 - 06/18/18 [facility] [address] [address]- Vital Signs No data available for this section Problem List Condition Effective Dates Status Health [...] 01/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)1 1 Hyperlipemia, Active mixed(Confirmed) [id number] 03/09/14 Active Osteoarthritis(Confi Active rmed) Postmenopausal 09/01/13 Active state13 Screening - health 08/17/14 Resolved check14, 15 Type 2 diabetes 05/27/59 Active mellitus(Confirmed)1 6 Urinary 03/03/13 Active ipszfckrdupn43 Urinary tract 04/28/14 Resolved infectious qtzilpj54 On warfarin Active therapy(Confirmed) 1Data migrated from [employer] on 12/11/14. 2Data migrated from [employer] on 10/23/14. 3Data migrated from [employer] [...] Adverse Reactions, Alerts No Known Medication Allergies Substance Reaction Severity Status NKFA Active Medications ACCU-CHEK ADRIÁN PLUS TEST STRP See Instructions, # 50 strip, Refill(s) 5, USE DIRECTED ONCE DAILY, Pharmacy: [facility]/pharmacy #[id number] Start Date: 06/17/18 Status: Ordered Results No data available for this section [...] no reaction 2Result Comment: fluzone high dose [[id number]]. Migrated from OBS ; Data migrated from [employer] on 06/28/2015. 3Result Comment: fluzone (>3 yrs.) [[id number]]. Migrated from OBS ; Data migrated from [employer] on 06/28/2015. 4Result Comment: pneumovax 23 [[id number]]. Migrated from OBS VIS: Pneumovax 23: 03/01/09 ; Data migrated from [employer] on 06/28/2015. Procedures Procedure Date Related Diagnosis Body Site Status Diabetic retinopathy screening1 02/08/17 Comple pita Mitral valve operation2 2011 Completed Cardiac pacemaker procedure Completed Cholecystectomy Completed Operation on uterus3 Completed 1Barcacel, OD 2replacement at [facility] 3tumor removed Social History Social History Type Response Substance Abuse Use: None. Alcohol Never Smoking Status Never smoker; Exposure to T obacco Smoke None; Cigarette Smoking Last 365 Days Yes; Reg Smoking Cessation Diagnostics Tech ing No entered on: 12/10/18 Assessment and Plan No data available for this section
--- OUTSIDE RECORDS SUMMARY | 2019-12-25 20:48 | XMS REPORT | Summary of Care ---
Author Author [facility] Organization [facility] Address Unknown Phone Unavailable Encounter HQ Isaac(FIN) [id number] Date(s): 12/30/17 - 12/31/17 [facility] [address], [address] [place], [place] [id number]- [phone] Vital Signs No data available for this section Problem List Condition Effective Dates Status Health Status Informan t Acute cystitis1 07/13/13 Resolved Anemia2 01/04/14 Active Anemia(Confirmed) Active Aortic valve 12/03/14 Active stenosis(Confirmed)3 Bleeding skin4 12/07/14 Active Atrial fibrillation, Active chronic(Confirmed) 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(Confirmed) CVA (cerebral Resolved vascular accident)(Confirmed) Dental abscess5 10/13/13 Resolved Diabetes(Confirmed) Resolved Essential 05/27/59 Active hypertension(Confirm ed)6 H/O: CVA(Confirmed)7 05/27/59 Active H/O mitral valve Active replacement(Confirme d) Hypertension(Confirm Resolved ed) Insomnia8 03/09/14 Active Insomnia(Confirmed) Resolved Left 04/28/14 Active hemiparesis(Confirme d)9 Major depressive 03/09/14 Active disorder(Confirmed)1 0 Mitral valve 01/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)1 1 Hyperlipemia, Active mixed(Confirmed) [id number] 03/09/14 Active Osteoarthritis(Confi Active rmed) Postmenopausal 09/01/13 Active state13 Screening - health 08/17/14 Resolved check14, 15 Type 2 diabetes 05/27/59 Active mellitus(Confirmed)1 6 Urinary 03/03/13 Active dahfxlsfbdwp46 Urinary tract 04/28/14 Resolved infectious ocqnfoo65 On warfarin Active therapy(Confirmed) 1Data migrated from [...] [employer] on 12/11/14. Allergies, Adverse Reactions, Alerts Substance Reaction Severity Status NKDA Active Medications warfarin 1 mg oral tablet See Instructions, 1 tab PO every MWF, # 1 tab, 2 Refill(s), [facility]acy: [id number] Start Date: 12/30/17 Status: Ordered Results No data available for [...] no reaction 2Result Comment: fluzone high dose [[id number]]. Migrated from OBS ; Data migrated from [employer] on 06/28/2015. 3Result Comment: fluzone (>3 yrs.) [[id number]]. Migrated from OBS ; Data migrated from [employer] on 06/28/2015. 4Result Comment: pneumovax 23 [cvx33]. Migrated from OBS VIS: Pneumovax 23: 03/01/09 ; Data migrated from [employer] on 06/28/2015. Procedures Procedure Date Related Diagnosis Body Site Status Diabetic retinopathy screening1 02/08/17 Comple pita Mitral valve operation2 2011 Completed Cardiac pacemaker procedure Completed Cholecystectomy Completed Operation on uterus3 Completed 1Barcacel, OD 2replacement at [facility] 3tumor removed Social History Social History Type Response Substance Abuse Use: None. Alcohol Never Smoking Status Never smoker; Exposure to T obacco Smoke None; Cigarette Smoking Last 365 Days Yes; Reg Smoking Cessation Lamination Builder ing No entered on: 05/02/18 Assessment and Plan No data available for this section
--- OUTSIDE RECORDS SUMMARY | 2019-12-25 20:48 | XMS REPORT | Summary of Care ---
Author Author [facility] Primary Care [facility] Organization [facility] Address Unknown Phone Unavailable Encounter HQ Isaac(FIN) [id number] Date(s): 06/25/17 - 06/26/17 [facility] [address], [address] [place], [place] [address]- [phone] Vital Signs No data available for this section Problem List Condition Effective Dates Status Health Status Informan t Acute cystitis1 07/13/13 Resolved Anemia2 01/04/14 Active Anemia(Confirmed) Active Aortic valve 12/03/14 Active stenosis(Confirmed)3 Bleeding skin4 12/07/14 Active Atrial fibrillation, Active chronic(Confirmed) CVA (cerebral Resolved vascular accident)(Confirmed) Dental abscess5 10/13/13 Resolved Diabetes(Confirmed) Resolved Essential 05/27/59 Active hypertension(Confirm ed)6 H/O: CVA(Confirmed)7 05/27/59 Active H/O mitral valve Active replacement(Confirme d) Hypertension(Confirm Resolved ed) Insomnia8 03/09/14 Active Insomnia(Confirmed) Resolved Left 04/28/14 Active hemiparesis(Confirme d)9 Major depressive 03/09/14 Active disorder(Confirmed)1 0 Mitral valve 01/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)1 1 Hyperlipemia, Active mixed(Confirmed) Bzesgjoildedfo18 03/09/14 Active Osteoarthritis(Confi Active rmed) Postmenopausal 09/01/13 Active state13 Screening - health 08/17/14 Resolved check14, 15 Type 2 diabetes 05/27/59 Active mellitus(Confirmed)1 6 Urinary 03/03/13 Active ddqliwgseoli41 Urinary tract 04/28/14 Resolved infectious tscdiiu16 On warfarin Active therapy(Confirmed) 1Data migrated from [...] Substance Reaction Severity Status NKDA Active Medications No data available for this section Results No data available for this section Immunizations Given and Recorded Vaccine Date Status Refusal Reason influenza virus vaccine, inactivated1 04/03/17 Given influenza virus vaccine, inactivated 03/01/16 G iven influenza virus vaccine, inactivated2 03/09/14 Given influenza virus vaccine, inactivated3 03/03/13 Given influenza virus vaccine, inactivated 07/09/08 G iven pneumococcal 23-valent vaccine4 09/01/13 Given 1Result Comment: Patient waited 15 min with no reaction 2Result Comment: fluzone high dose [[id number]]. Migrated from OBS ; Data migrated from [employer] on 06/28/2015. 3Result Comment: fluzone (>3 yrs.) [[id number]]. Migrated from OBS ; Data migrated from [employer] on 06/28/2015. 4Result Comment: pneumovax 23 [cvx33]. Migrated from OBS VIS: Pneumovax 23: 03/01/09 ; Data migrated from [employer] on 06/28/2015. Procedures Procedure Date Related Diagnosis Body Site Status Diabetic retinopathy screening1 02/08/17 Comple pita Mitral valve operation2 2011 Completed Cardiac pacemaker procedure Completed Cholecystectomy Completed Operation on uterus3 Completed 1Barcacel, OD 2replacement at [facility] 3tumor removed Social History Social History Type Response Substance Abuse Use: None. Alcohol Never Smoking Status Never smoker; Exposure to T obacco Smoke None; Cigarette Smoking Last 365 Days Yes; Reg Smoking Cessation Wood Last Maker ing No entered on: 07/11/17 Assessment and Plan No data available for this section
--- OUTSIDE RECORDS SUMMARY | 2019-12-25 20:48 | XMS REPORT | Summary of Care ---
Author Author [facility] Primary Care [facility] Organization [facility] Address Unknown Phone Unavailable Encounter HQ Isaac(FIN) [id number] Date(s): 06/26/17 - 06/27/17 [facility] [address], [address] [place], [place] [address]- [phone] Vital Signs No data available for this [...] 01/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)1 1 Hyperlipemia, Active mixed(Confirmed) Pgpsgftmzphhob38 03/09/14 Active Osteoarthritis(Confi Active rmed) Postmenopausal 09/01/13 Active state13 Screening - health 08/17/14 Resolved check14, 15 Type 2 diabetes 05/27/59 Active mellitus(Confirmed)1 6 Urinary 03/03/13 Active tufdukpivndx11 Urinary tract 04/28/14 Resolved infectious qsufspl45 On warfarin Active therapy(Confirmed) 1Data migrated from [...] no reaction 2Result Comment: fluzone high dose [[id number]]. Migrated from OBS ; Data migrated from [employer] on 06/28/2015. 3Result Comment: fluzone (>3 yrs.) [[id number]]. Migrated from OBS ; Data migrated from [...] on uterus3 Completed 1Barcacel, OD 2replacement at [facility] 3tumor removed Social History Social History Type Response Substance Abuse Use: None. Alcohol Never Smoking Status Never smoker; Exposure to T obacco Smoke None; Cigarette Smoking Last 365 Days Yes; Reg Smoking Cessation Financial Services Associate ing No entered on: 07/11/17 Assessment and Plan No data available for this section
--- OUTSIDE RECORDS SUMMARY | 2019-12-25 20:48 | XMS REPORT | Summary of Care ---
Author Author [facility] Primary Care [facility] Organization [facility] Address Unknown Phone Unavailable Encounter HQ Isaac(FIN) [id number] Date(s): 11/05/17 - 11/06/17 [facility] [address], [address] [place] [address] [phone] Vital Signs No data available for this [...] 01/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)1 1 Hyperlipemia, Active mixed(Confirmed) Ixjpqmrcsflsuj71 03/09/14 Active Osteoarthritis(Confi Active rmed) Postmenopausal 09/01/13 Active state13 Screening - health 08/17/14 Resolved check14, 15 Type 2 diabetes 05/27/59 Active mellitus(Confirmed)1 6 Urinary 03/03/13 Active Urinary tract 04/28/14 Resolved infectious huqaxte28 On warfarin Active therapy(Confirmed) 1Data migrated from [...] Substance Reaction Severity Status NKDA Active Medications losartan 25 mg oral tablet 25 mg = 1 tab, PO, Daily, # 90 tab, 1 Refill(s), Pharmacy: [facility]/pharmacy #[id number] Start Date: 11/05/17 Status: Ordered warfarin 5 mg oral tablet 5 mg = 1 tab, PO, Daily, # 90 tab, 1 Refill(s), Pharmacy: [facility]/pharmacy #[id number] Start Date: 11/05/17 Status: Ordered Results No data available for [...] no reaction 2Result Comment: fluzone high dose [nvr340]. Migrated from OBS ; Data migrated from [employer] on 06/28/2015. 3Result Comment: fluzone (>3 yrs.) [hqn820]. Migrated from OBS ; [facility] migrated from [facility] on 06/28/2015. 4Result Comment: pneumovax 23 [cvx33]. Migrated from OBS VIS: Pneumovax 23: 03/01/09 ; Data migrated from [facility] on 06/28/2015. Procedures Procedure Date Related Diagnosis Body Site Status Diabetic retinopathy screening1 02/08/17 Comple pita Mitral valve operation2 2011 Completed Cardiac pacemaker procedure Completed Cholecystectomy Completed Operation on uterus3 Completed 1Barcacel, OD 2replacement at [facility] 3tumor removed Social History Social History Type Response Substance Abuse Use: None. Alcohol Never Smoking Status Never smoker; Exposure to T obacco Smoke None; Cigarette Smoking Last 365 Days Yes; Reg Smoking Cessation Vendor Management Associate ing No entered on: 07/11/17 Assessment and Plan No data available for this section
--- OUTSIDE RECORDS SUMMARY | 2019-12-25 20:48 | XMS REPORT | Summary of Care ---
Author Author [facility] Organization [facility] Address Unknown Phone Unavailable Encounter CONTRERAS Gray(FIN) [id number] Date(s): 07/05/17 - 07/05/17 [facility] [address], [address] [place], [place] [address]- [phone] Discharge Disposition: Home or Self Care Attending Physician: Mohini Dee MD Vital Signs Most recent to 1 oldest [Reference Range]: Height 160.02 cm (07/05/17 10:55 AM) Temperature Oral 100.9 DegF [96.4-99.1 DegF] *HI* (07/05/17 10:55 AM) Blood Pressure 145/75 mmHg [90-140/60-90 mmHg] *HI* (07/05/17 10:55 AM) Respiratory Rate 14 BRMIN [14-20 BRMIN] (07/05/17 10:55 AM) Peripheral Pulse 84 bpm Rate [60-100 bpm] (07/05/17 10:55 AM) Weight 64.261 kg (07/05/17 10:55 AM) Body Mass Index 25.1 m2 (07/05/17 10:55 AM) Problem List Condition Effective Dates Status [...] 01/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)1 1 Hyperlipemia, Active mixed(Confirmed) Llkxyxrsqelppl16 03/09/14 Active Osteoarthritis(Confi Active rmed) Postmenopausal 09/01/13 Active state13 Screening - health 08/17/14 Resolved check14, 15 Type 2 diabetes 05/27/59 Active mellitus(Confirmed)1 6 Urinary 03/03/13 Active Urinary tract 04/28/14 Resolved infectious spmwipa44 On warfarin Active therapy(Confirmed) 1Data migrated from [...] Substance Reaction Severity Status NKDA Active Medications acetaminophen-tramadol 325 mg-37.5 mg oral tablet 1 tab, PO, Daily, take as needed, # 30 tab, 1 Refill(s) Start Date: 07/05/17 Stop Date: 07/05/18 Status: Ordered BD Ultra-Fine Mini Insulin [place] 31G 5mm=3/16 inch 1 ea, MISC, Daily, # 100 ea, 3 Refill(s) Start Date: 07/05/17 Status: Ordered TamiFLU 75 mg oral capsule 75 mg = 1 cap, PO, BID, # 10 cap, 0 Refill(s) Start Date: 07/05/17 Stop Date: 07/05/18 Status: Ordered Results No data available for [...] no reaction 2Result Comment: fluzone high dose [ydf164]. Migrated from OBS ; Data migrated from [employer] on 06/28/2015. 3Result Comment: fluzone (>3 yrs.) [cds041]. Migrated from OBS ; Data migrated from [email or web address] on 06/28/2015. 4Result Comment: pneumovax 23 [cvx33]. Migrated from OBS VIS: Pneumovax 23: 03/01/09 ; Data migrated from [email or web address] on 06/28/2015. Procedures Procedure Date Related Diagnosis Body Site Status Diabetic retinopathy screening1 02/08/17 Comple pita Mitral valve operation2 2011 Completed Cardiac pacemaker procedure Completed Cholecystectomy Completed Operation on uterus3 Completed 1Barcacel, OD 2replacement at [facility] 3tumor removed Social History Social History Type Response Substance Abuse Use: None. Alcohol Never Smoking Status Never smoker; Exposure to T obacco Smoke None; Cigarette Smoking Last 365 Days Yes; Reg Smoking Cessation Shellacker ing No entered on: 07/11/17 Assessment and Plan No data available for this section
--- OUTSIDE RECORDS SUMMARY | 2019-12-25 20:48 | XMS REPORT | Summary of Care ---
Author Author [facility] enter Organization [facility] enter Address Unknown Phone Unavailable Encounter HQ Isaac(FIN) [id number] Date(s): 08/14/19 - 08/15/19 [facility] [address] [place] [address] [phone] Vital Signs No data available for this [...] 01/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)1 1 Hyperlipemia, Active mixed(Confirmed) Yhmylpobyjwiwm97 03/09/14 Active Osteoarthritis(Confi Active rmed) Postmenopausal 09/01/13 Active state13 Screening - health 08/17/14 Resolved check14, 15 Type 2 diabetes 05/27/59 Active mellitus(Confirmed)1 6 Urinary 03/03/13 Active Urinary tract 04/28/14 Resolved infectious On warfarin Active therapy(Confirmed) 1Data migrated from [email or web address] on 12/11/14. 2Data migrated from [employer] [...] Substance Reaction Severity Status NKFA Active Medications No data available for this [...] no reaction 2Result Comment: fluzone high dose [hxi769]. Migrated from OBS ; Data migrated from [employer] on 06/28/2015. 3Result Comment: fluzone (>3 yrs.) [rkr929]. Migrated from OBS ; Data migrated from [employer] on 06/28/2015. 4Result Comment: pneumovax 23 [cvx33]. Migrated from OBS VIS: Pneumovax 23: 03/01/09 ; Data migrated from [employer] on 06/28/2015. Procedures Procedure Date Related Diagnosis Body Site Status Diabetic retinopathy screening1 02/08/17 Comple pita Mitral valve operation2 2011 Completed Cardiac pacemaker procedure Completed Cholecystectomy Completed Operation on uterus3 Completed 1Barcacel, OD 2replacement at [facility] 3tumor removed Social History Social History Type Response Alcohol Never Substance Abuse Use: None. Smoking Status Never smoker; Previous tammy tment: None; Ready to change: No; Concerns about tobacco use in household: No; Exposure to Tobacco Smoke None; Cigarette Smoking Last 365 Days Yes; Reg Smoking Cessation Counseling No entered on: 07/07/19 Assessment and Plan No data available for this section
--- OUTSIDE RECORDS SUMMARY | 2019-12-25 20:48 | XMS REPORT | Summary of Care ---
Author Author [facility] Organization [facility] Address Unknown Phone Unavailable Encounter CONTRERAS Gray(LAN) [id number] Date(s): 03/04/19 - 03/04/19 [facility] [address] [place] [address]- [phone] Discharge Disposition: Home or Self Care Attending Physician: Eugenie Rojas MD Referring Physician: Eugenie Rojas MD Vital Signs 1 2 3 Most recent to oldest [Reference Range]: 162.56 cm (03/04/19 9:45 AM) Height 98.1 DegF (03/04/19 11:35 AM) 98.5 DegF (03/04/19 10:09 AM) Temperature Oral [96.4-99.1 DegF] 120/66 mmHg (03/04/19 12:59 PM) 119/60 mmHg (03/04/19 12:45 PM) 120/60 mmHg (03/04/19 12:30 PM) Blood Pressure [90-140/60-90 mmHg] 20 BRMIN (03/04/19 12:59 PM) 20 BRMIN (03/04/19 12:45 PM) 19 BRMIN (03/04/19 12:30 PM) Respiratory Rate [14-20 BRMIN] 59.545 kg (03/04/19 9:45 AM) Weight 22.53 m2 (03/04/19 9:45 AM) Body Mass Index Problem List Condition Effective Dates Status Health [...] 01/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)1 1 Hyperlipemia, Active mixed(Confirmed) Itaucjfqqxuoen55 03/09/14 Active Osteoarthritis(Confi Active rmed) Postmenopausal 09/01/13 Active state13 Screening - health 08/17/14 Resolved check14, 15 Type 2 diabetes 05/27/59 Active mellitus(Confirmed)1 6 Urinary 03/03/13 Active ilfneredfnqd93 Urinary tract 04/28/14 Resolved infectious On warfarin [...] Substance Reaction Severity Status NKFA Active Medications acetaminophen 325 mg, 1 tab, Route: PO, Drug form: TAB, Q4H, Dosing Weight 59.545, kg, PRN Jihan n Score 4-6, Start date: 03/04/19 11:28:00 CDT, Duration: 30 day, Stop date: 01/12 11:27:00 TREE TAPPING LABORER, 0 Notes: Do not exceed 4 gm/day. (Same as: Tylenol) Start Date: 03/04/19 Stop Date: 03/04/19 Status: Discontinued acetaminophen-codeine #3 1 tab, Route: PO, Drug Form: TAB, Dosing Weight 59.545, kg, Q4H, PRN Pain Score 4-6, Start date: 03/04/19 11:28:00 CDT, Duration: 30 day, Stop date: 04/03/19 11 :27:00 TREE TAPPING LABORER, 0 Notes: Do not exceed 4gm/day of acetaminophen. (Same as: Tylenol with Codeine # 3) Start Date: 03/04/19 Stop Date: 03/04/19 Status: Discontinued acetaminophen-tramadol 325 mg-37.5 mg oral tablet 1 tab, PO, Daily, PRN Pain, # 60 tab, 0 Refill(s) Start Date: 03/04/19 Stop Date: 03/14/19 Status: Ordered Calcium 600 +D oral tablet 1 tab, PO, BID, 0 Refill(s) Start Date: 03/04/19 Status: Ordered enoxaparin 60 mg, 0.6 mL, Route: SUB-Q, Drug form: INJ, [id number], Dosing Weight 59.545, kg, Start date: 03/04/19 13:00:00 CDT, Duration: 30 day, Stop date: 04/03/19 1:00:00 TREE TAPPING LABORER, 0 Notes: Nurse to ensure documentation of patient education per anticoagulation po licy. (Same as: Lovenox) Start Date: 03/04/19 Stop Date: 03/04/19 Status: Discontinued enoxaparin 60 mg/0.6 mL subcutaneous solution 60 mg, SUB-Q, Q12H, X 7 day, # 14 syr, 0 Refill(s), Pharmacy: [facility]/pharmacy #[id number] Start Date: 03/04/19 Stop Date: 03/11/19 Status: Ordered omeprazole 40 mg oral delayed release capsule 40 mg = 1 cap, PO, Daily, # 30 cap, 1 Refill(s) Start Date: 03/04/19 Status: Ordered ondansetron 4 mg, 2 mL, Route: IVP, Drug form: INJ, Q8H, Dosing Weight 59.545, kg, PRN Nause a & Vomiting, Start date: 03/04/19 11:28:00 CDT, Duration: 30 day, Stop date: 04/03/19 11:27:00 TREE TAPPING LABORER, 0 Notes: (Same as: Zofran) MEDICATION WASTE Product Size: 4 mgProduct Was pita: ___ mg Start Date: 03/04/19 Stop Date: 03/04/19 Status: Discontinued prednisoLONE acetate 1% preservative-free ophthalmic suspension See Instructions, 1 drop into left eye 3 times a day, 0 Refill(s) Start Date: 03/04/19 Status: Ordered Sodium Chloride 0.9% IV 250 mL 250 mL, Rate: 20 ml/hr, Infuse over: 12.5 hr, Route: IV, Dosing Weight 59.545 kg , Total Volume: 250, Start date: 03/04/19 11:28:00 CDT, Duration: 24 hr, Stop da te: 03/05/19 11:27:00 CDT, 1.65, m2, 0 Start Date: 03/04/19 Stop Date: 03/04/19 Status: Discontinued Results Most recent to 1 oldest [Reference Range]: INR [0.85-1.17] 1.33 *HI* (03/04/19 9:46 AM) PT [12.0-14.7 16.2 seconds seconds] *HI* (03/04/19 9:46 AM) PTT [22.9-35.8 54.3 seconds seconds] *HI* (03/04/19 9:46 AM) Immunizations Given and Recorded Vaccine Date Status [...] no reaction 2Result Comment: fluzone high dose [yfy278]. Migrated from OBS ; Data migrated from [employer] on 06/28/2015. 3Result Comment: fluzone (>3 yrs.) [yqb274]. Migrated from OBS ; Data migrated from [employer] on 06/28/2015. 4Result Comment: pneumovax 23 [cvx33]. Migrated from OBS VIS: Pneumovax 23: 03/01/09 ; Data migrated from [employer] on 06/28/2015. Procedures Procedure Date Related Diagnosis Body Site Status Diabetic retinopathy screening1 02/08/17 Comple pita Mitral valve operation2 2011 Completed Cardiac pacemaker procedure Completed Cholecystectomy Completed Operation on uterus3 Completed 1Barcacel, OD 2replacement at [facility] 3tumor removed Social History Social History Type Response Alcohol Never Substance Abuse Use: None. Smoking Status Never smoker; Exposure to T obacco Smoke None; Cigarette Smoking Last 365 Days Yes; Reg Smoking Cessation Surveying Technician ing No entered on: 12/10/18 Assessment and Plan Extracted from: Title: Clinical Document Author: Eugenie Rojas MD Date: Selective coronary angiogram Indication: Severe aortic stenosis Patient has a history of mechanical mitral valve replacement given that she was on Lovenox bridge prior to the procedure Procedure details: The patient was prepped and draped in the usual sterile fashion. Local lidocaine was used in the right groin. The right femoral artery was cannulated via micropuncture technique and ultrasound guidance technique. A 5 Bulgarian sheath was placed in the right femoral [...] angiographically normal LAD-mild plaque 10% to 20% Wkjntfmaoz-uvswstmn-dnmwa vessel gives rise to obtuse marginal 1 2 and 3 minimal plaque RYB-subbjoah-mzuaa vessel has mild plaque up to 10% in the midsegment Conclusions: Mild plaque with no significant CAD large coronary arteries Recommendation: Resume Lovenox and Coumadin today for mechanical mitral valve replacement Proceed with TAVR evaluation for severe aortic stenosis
--- OUTSIDE RECORDS SUMMARY | 2019-12-25 20:48 | XMS REPORT | Summary of Care ---
Author Author [facility] Primary Care [facility] Organization [facility] Address Unknown Phone Unavailable Encounter HQ Isaac(FIN) [id number] Date(s): 06/26/17 - 06/27/17 [facility] [address], [address] [place], [place] [address]- [phone] Vital Signs No data available for this [...] 01/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)1 1 Hyperlipemia, Active mixed(Confirmed) Intcsdkxpnhhur72 03/09/14 Active Osteoarthritis(Confi Active rmed) Postmenopausal 09/01/13 Active state13 Screening - health 08/17/14 Resolved check14, 15 Type 2 diabetes 05/27/59 Active mellitus(Confirmed)1 6 Urinary 03/03/13 Active ioogudfsbzxt71 Urinary tract 04/28/14 Resolved infectious kijddpu27 On warfarin Active therapy(Confirmed) 1Data migrated from [...] no reaction 2Result Comment: fluzone high dose [[id number]]. Migrated from OBS ; Data migrated from [employer] on 06/28/2015. 3Result Comment: fluzone (>3 yrs.) [ztx860]. Migrated from OBS ; Data migrated from [...] on uterus3 Completed 1Barcacel, OD 2replacement at [facility] 3tumor removed Social History Social History Type Response Substance Abuse Use: None. Alcohol Never Smoking Status Never smoker; Exposure to T obacco Smoke None; Cigarette Smoking Last 365 Days Yes; Reg Smoking Cessation Research Aide ing No entered on: 07/11/17 Assessment and Plan No data available for this section
--- OUTSIDE RECORDS SUMMARY | 2019-12-25 20:48 | XMS REPORT | Summary of Care ---
Author Author [facility] Primary Care [facility] Organization [facility] Address Unknown Phone Unavailable Encounter CONTRERAS Gray(FIN) [id number] Date(s): 10/24/17 - 10/24/17 [facility] Care [facility] [address], [address] [place] [address] [phone] Attending Physician: Mohini Dee MD Vital Signs No data available for this [...] 01/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)1 1 Hyperlipemia, Active mixed(Confirmed) Gptenxtdbsnxmo35 03/09/14 Active Osteoarthritis(Confi Active rmed) Postmenopausal 09/01/13 Active state13 Screening - health 08/17/14 Resolved check14, 15 Type 2 diabetes 05/27/59 Active mellitus(Confirmed)1 6 Urinary 03/03/13 Active gocudkryhrkz37 Urinary tract 04/28/14 Resolved infectious On warfarin [...] no reaction 2Result Comment: fluzone high dose [psq863]. Migrated from OBS ; Data migrated from [employer] on 06/28/2015. 3Result Comment: fluzone (>3 yrs.) [[id number]]. Migrated from OBS ; Data migrated from [...] on uterus3 Completed 1Barcacel, OD 2replacement at [facility] 3tumor removed Social History Social History Type Response Substance Abuse Use: None. Alcohol Never Smoking Status Never smoker; Exposure to T obacco Smoke None; Cigarette Smoking Last 365 Days Yes; Reg Smoking Cessation Residential Sales ing No entered on: 07/11/17 Assessment and Plan No data available for this section
--- OUTSIDE RECORDS SUMMARY | 2019-12-25 20:48 | XMS REPORT | Summary of Care ---
Author Author [facility] Primary Care [facility] Organization [facility] Address Unknown Phone Unavailable Encounter HQ Isaac(FIN) [id number] Date(s): 10/07/17 - 10/08/17 [facility] [address], [address] [place] [address] [phone] Vital Signs No data available for this [...] 01/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)1 1 Hyperlipemia, Active mixed(Confirmed) Lgemjuuvcvmeeu14 03/09/14 Active Osteoarthritis(Confi Active rmed) Postmenopausal 09/01/13 Active state13 Screening - health 08/17/14 Resolved check14, 15 Type 2 diabetes 05/27/59 Active mellitus(Confirmed)1 6 Urinary 03/03/13 Active avtusodkrpep55 Urinary tract 04/28/14 Resolved infectious fiasjhy74 On warfarin Active therapy(Confirmed) 1Data migrated from [...] Substance Reaction Severity Status NKDA Active Medications escitalopram 10 mg oral tablet 10 mg = 1 tab, PO, Daily, # 90 tab, 1 Refill(s), Pharmacy: [id number]/pharmacy #[id number] Start Date: 10/07/17 Status: Ordered Results No data available for [...] no reaction 2Result Comment: fluzone high dose [[id number]]. Migrated from OBS ; Data migrated from [employer] on 06/28/2015. 3Result Comment: fluzone (>3 yrs.) [oxz992]. Migrated from OBS ; Data migrated from [employer] on 06/28/2015. 4Result Comment: pneumovax 23 [cvx33]. Migrated from OBS VIS: Pneumovax 23: 03/01/09 ; Data migrated from [employer] on 06/28/2015. Procedures Procedure Date Related Diagnosis Body Site Status Diabetic retinopathy screening1 02/08/17 Comple pita Mitral valve operation2 2011 Completed Cardiac pacemaker procedure Completed Cholecystectomy Completed Operation on uterus3 Completed 1Barcacel, OD 2replacement at [facility] 3tumor removed Social History Social History Type Response Substance Abuse Use: None. Alcohol Never Smoking Status Never smoker; Exposure to T obacco Smoke None; Cigarette Smoking Last 365 Days Yes; Reg Smoking Cessation Set Up Worker ing No entered on: 07/11/17 Assessment and Plan No data available for this section
--- OUTSIDE RECORDS SUMMARY | 2019-12-25 20:48 | XMS REPORT | Summary of Care ---
Author Author [facility] Organization [facility] Address Unknown Phone Unavailable Encounter CONTRERAS Gray(FIN) [id number] Date(s): 06/21/17 - 06/21/17 [facility] [address], [address] [place], [place] [address]- [phone] Discharge Disposition: Home or Self Care Attending Physician: Mohini Dee MD Vital Signs Most recent to 1 oldest [Reference Range]: Height 160.02 cm (06/21/17 9:30 AM) Temperature Oral 99.5 DegF [96.4-99.1 DegF] *HI* (06/21/17 9:30 AM) Blood Pressure 135/79 mmHg [90-140/60-90 mmHg] (06/21/17 9:30 AM) Respiratory Rate 14 BRMIN [14-20 BRMIN] (06/21/17 9:30 AM) Peripheral Pulse 90 bpm Rate [60-100 bpm] (06/21/17 9:30 AM) Weight 64.318 kg (06/21/17 9:30 AM) Body Mass Index 25.12 m2 (06/21/17 9:30 AM) Problem List Condition Effective Dates Status [...] 01/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)1 1 Hyperlipemia, Active mixed(Confirmed) Xoofedqfxcobny06 03/09/14 Active Osteoarthritis(Confi Active rmed) Postmenopausal 09/01/13 Active state13 Screening - health 08/17/14 Resolved check14, 15 Type 2 diabetes 05/27/59 Active mellitus(Confirmed)1 6 Urinary 03/03/13 Active godfybskhnym62 Urinary tract 04/28/14 Resolved infectious chubvaz41 On warfarin Active therapy(Confirmed) 1Data migrated from [...] Substance Reaction Severity Status NKDA Active Medications benzonatate 100 mg oral capsule 100 mg = 1 cap, PO, TID, PRN cough, do not crush or chew, X 10 day, # 30 cap, 0 Refill(s), Pharmacy: [facility]/pharmacy #[id number] Start Date: 06/21/17 Stop Date: 07/01/17 Status: Completed cefuroxime 500 mg oral tablet 500 mg = 1 tab, PO, BID, X 7 day, # 14 tab, 0 Refill(s), Pharmacy: [facility]/pharmacy #[id number] Start Date: 06/21/17 Stop Date: 06/28/17 Status: Completed Results No data available for this section [...] no reaction 2Result Comment: fluzone high dose [igz441]. Migrated from OBS ; Data migrated from [email or web address] on 06/28/2015. 3Result Comment: fluzone (>3 yrs.) [hsu010]. Migrated from OBS ; Data migrated from [email or web address] on 06/28/2015. 4Result Comment: pneumovax 23 [cvx33]. Migrated from OBS VIS: Pneumovax 23: 03/01/09 ; Data migrated from [employer] on 06/28/2015. Procedures Procedure Date Related Diagnosis Body Site Status Diabetic retinopathy screening1 02/08/17 Comple pita Mitral valve operation2 2011 Completed Cardiac pacemaker procedure Completed Cholecystectomy Completed Operation on uterus3 Completed 1Barcacel, OD 2replacement at [facility] 3tumor removed Social History Social History Type Response Substance Abuse Use: None. Alcohol Never Smoking Status Never smoker; Exposure to T obacco Smoke None; Cigarette Smoking Last 365 Days Yes; Reg Smoking Cessation Tower Director ing No entered on: 07/11/17 Assessment and Plan No data available for this section
--- OUTSIDE RECORDS SUMMARY | 2019-12-25 20:48 | XMS REPORT | Summary of Care ---
Author Author [facility] Organization [facility] Address Unknown Phone Unavailable Encounter CONTRERAS Gray(LAN) [id number] Date(s): 09/03/18 - 09/03/18 [facility] [address] [address]- Discharge Disposition: Home or Self Care Attending Physician: Mohini Dee MD Vital Signs Most recent to 1 oldest [Reference Range]: Height 160.02 cm (09/03/18 10:02 AM) Temperature Oral 97.4 DegF [96.4-99.1 DegF] (09/03/18 10:02 AM) Blood Pressure 117/73 mmHg [90-140/60-90 mmHg] (09/03/18 10:02 AM) Respiratory Rate 14 BRMIN [14-20 BRMIN] (09/03/18 10:02 AM) Peripheral Pulse 59 bpm Rate [60-100 bpm] *LOW* (09/03/18 10:02 AM) Weight 65.455 kg (09/03/18 10:02 AM) Body Mass Index 25.56 m2 (09/03/18 10:02 AM) Problem List Condition Effective Dates Status [...] 01/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)1 1 Hyperlipemia, Active mixed(Confirmed) Jgvgjclreupqiw74 03/09/14 Active Osteoarthritis(Confi Active rmed) Postmenopausal 09/01/13 Active state13 Screening - health 08/17/14 Resolved check14, 15 Type 2 diabetes 05/27/59 Active mellitus(Confirmed)1 6 Urinary 03/03/13 Active xtzfgowgvxmu52 Urinary tract 04/28/14 Resolved infectious ruhwoat54 On warfarin Active therapy(Confirmed) 1Data migrated from [...] Reaction Severity Status NKDA Active Medications warfarin 5 mg oral tablet = 1 tab, PO, Daily, # 90 tab, 1 Refill(s), Pharmacy: [facility]/pharmacy #[id number] Start Date: 09/03/18 Status: Ordered Results No data available for [...] no reaction 2Result Comment: fluzone high dose [lwv967]. Migrated from OBS ; Data migrated from [employer] on 06/28/2015. 3Result Comment: fluzone (>3 yrs.) [ubx668]. Migrated from OBS ; Data migrated from [employer] on 06/28/2015. 4Result Comment: pneumovax 23 [cvx33]. Migrated from OBS VIS: Pneumovax 23: 03/01/09 ; Data migrated from [employer] on 06/28/2015. Procedures Procedure Date Related Diagnosis Body Site Status Diabetic retinopathy screening1 02/08/17 Comple pita Mitral valve operation2 2011 Completed Cardiac pacemaker procedure Completed Cholecystectomy Completed Operation on uterus3 Completed 1Barcacel, OD 2replacement at [facility] 3tumor removed Social History Social History Type Response Substance Abuse Use: None. Alcohol Never Smoking Status Never smoker; Exposure to T obacco Smoke None; Cigarette Smoking Last 365 Days Yes; Reg Smoking Cessation Trade Embalmer ing No entered on: 09/03/18 Assessment and Plan No data available for this section
--- OUTSIDE RECORDS SUMMARY | 2019-12-25 20:48 | XMS REPORT | Summary of Care ---
Author Author [facility] Organization [facility] Address Unknown Phone Unavailable Encounter CONTRERAS Gray(FIN) [id number] Date(s): 01/01/18 - 01/01/18 [facility] [address], [address] [place], [place] [address]- [phone] Discharge Disposition: Home or Self Care Attending Physician: Mohini Dee MD Vital Signs Most recent to 1 oldest [Reference Range]: Height 160.02 cm (01/01/18 1:52 PM) Temperature Oral 97.1 DegF [96.4-99.1 DegF] (01/01/18 1:52 PM) Blood Pressure 111/68 mmHg [90-140/60-90 mmHg] (01/01/18 1:52 PM) Respiratory Rate 14 BRMIN [14-20 BRMIN] (01/01/18 1:52 PM) Peripheral Pulse 60 bpm Rate [60-100 bpm] (01/01/18 1:52 PM) Weight 65.511 kg (01/01/18 1:52 PM) Body Mass Index 25.58 m2 (01/01/18 1:52 PM) Problem List Condition Effective Dates Status Health [...] 01/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)1 1 Hyperlipemia, Active mixed(Confirmed) Ildzwlqtozghfo78 03/09/14 Active Osteoarthritis(Confi Active rmed) Postmenopausal 09/01/13 Active state13 Screening - health 08/17/14 Resolved check14, 15 Type 2 diabetes 05/27/59 Active mellitus(Confirmed)1 6 Urinary 03/03/13 Active drtojqqeembx09 Urinary tract 04/28/14 Resolved infectious rpkuvyh74 On warfarin Active therapy(Confirmed) 1Data migrated from [...] Reaction Severity Status NKDA Active Medications No Known Medications Results No data [...] no reaction 2Result Comment: fluzone high dose [ohy216]. Migrated from OBS ; Data migrated from [employer] on 06/28/2015. 3Result Comment: fluzone (>3 yrs.) [bex052]. Migrated from OBS ; Data migrated from [employer]el[employer] on 06/28/2015. 4Result Comment: pneumovax 23 [cvx33]. Migrated from OBS VIS: Pneumovax 23: 03/01/09 ; Data migrated from [employer] on 06/28/2015. Procedures Procedure Date Related Diagnosis Body Site Status Diabetic retinopathy screening1 02/08/17 Comple pita Mitral valve operation2 2011 Completed Cardiac pacemaker procedure Completed Cholecystectomy Completed Operation on uterus3 Completed 1Barcacel, OD 2replacement at [facility] 3tumor removed Social History Social History Type Response Substance Abuse Use: None. Alcohol Never Smoking Status Never smoker; Exposure to T obacco Smoke None; Cigarette Smoking Last 365 Days Yes; Reg Smoking Cessation Building Performance Consultant ing No entered on: 05/02/18 Assessment and Plan No data available for this section
--- OUTSIDE RECORDS SUMMARY | 2019-12-25 20:48 | XMS REPORT | Summary of Care ---
Author Author [facility] Organization [facility] Address Unknown Phone Unavailable Encounter CONTRERAS Gray(FIN) [id number] Date(s): 07/11/17 - 07/11/17 [facility] [address], [address] [place] [address] [phone] Discharge Disposition: Home or Self Care Attending Physician: Mohini Dee MD Vital Signs Most recent to 1 oldest [Reference Range]: Height 160.02 cm (07/11/17 11:49 AM) Temperature Oral 98.2 DegF [96.4-99.1 DegF] (07/11/17 11:49 AM) Blood Pressure 123/70 mmHg [90-140/60-90 mmHg] (07/11/17 11:49 AM) Respiratory Rate 14 BRMIN [14-20 BRMIN] (07/11/17 11:49 AM) Peripheral Pulse 60 bpm Rate [60-100 bpm] (07/11/17 11:49 AM) Weight 62.045 kg (07/11/17 11:49 AM) Body Mass Index 24.23 m2 (07/11/17 11:49 AM) Problem List Condition Effective Dates Status [...] 01/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)1 1 Hyperlipemia, Active mixed(Confirmed) Jveflrzeqqhzql43 03/09/14 Active Osteoarthritis(Confi Active rmed) Postmenopausal 09/01/13 Active state13 Screening - health 08/17/14 Resolved check14, 15 Type 2 diabetes 05/27/59 Active mellitus(Confirmed)1 6 Urinary 03/03/13 Active sqkwpoxohgue45 Urinary tract 04/28/14 Resolved infectious puwykxv76 On warfarin Active therapy(Confirmed) 1Data migrated from [...] no reaction 2Result Comment: fluzone high dose [zjo432]. Migrated from OBS ; Data migrated from [employer]hak[employer] on 06/28/2015. 3Result Comment: fluzone (>3 yrs.) [zuy884]. Migrated from OBS ; Data migrated from [employer]ak[employer] on 06/28/2015. 4Result Comment: pneumovax 23 [cvx33]. Migrated from OBS VIS: Pneumovax 23: 03/01/09 ; Data migrated from [employer]ak[employer] on 06/28/2015. Procedures Procedure Date Related Diagnosis Body Site Status Diabetic retinopathy screening1 02/08/17 Comple pita Mitral valve operation2 2011 Completed Cardiac pacemaker procedure Completed Cholecystectomy Completed Operation on uterus3 Completed 1Barcacel, OD 2replacement at [facility] 3tumor removed Social History Social History Type Response Substance Abuse Use: None. Alcohol Never Smoking Status Never smoker; Exposure to T obacco Smoke None; Cigarette Smoking Last 365 Days Yes; Reg Smoking Cessation Private Client Advisor ing No entered on: 07/11/17 Assessment and Plan No data available for this section
--- OUTSIDE RECORDS SUMMARY | 2019-12-25 20:48 | XMS REPORT | Summary of Care ---
Author Author [facility] Primary Care [facility] Organization [facility] Address Unknown Phone Unavailable Encounter HQ Isaac(FIN) [id number] Date(s): 10/01/17 - 10/02/17 [facility] [address], [address] [place] [address] [phone] Vital Signs No data available for this [...] 01/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)1 1 Hyperlipemia, Active mixed(Confirmed) Jvzdekydskgaub92 03/09/14 Active Osteoarthritis(Confi Active rmed) Postmenopausal 09/01/13 Active state13 Screening - health 08/17/14 Resolved check14, 15 Type 2 diabetes 05/27/59 Active mellitus(Confirmed)1 6 Urinary 03/03/13 Active dutzlknmykmc09 Urinary tract 04/28/14 Resolved infectious ukqboji66 On warfarin Active therapy(Confirmed) 1Data migrated from [...] MOUTH DAILY NEEDED, # 30 tab, 2 Refill(s ), Pharmacy: [facility]/pharmacy #[id number] Start Date: 10/01/17 Status: Ordered Results No data available for [...] no reaction 2Result Comment: fluzone high dose [vci308]. Migrated from OBS ; Data migrated from [employer] on 06/28/2015. 3Result Comment: fluzone (>3 yrs.) [pzf150]. Migrated from OBS ; Data migrated from [employer] on 06/28/2015. 4Result Comment: pneumovax 23 [cvx33]. Migrated from OBS VIS: Pneumovax 23: 03/01/09 ; Data migrated from [employer] on 06/28/2015. Procedures Procedure Date Related Diagnosis Body Site Status Diabetic retinopathy screening1 02/08/17 Comple pita Mitral valve operation2 2011 Completed Cardiac pacemaker procedure Completed Cholecystectomy Completed Operation on uterus3 Completed 1Barcacel, OD 2replacement at [facility] 3tumor removed Social History Social History Type Response Substance Abuse Use: None. Alcohol Never Smoking Status Never smoker; Exposure to T obacco Smoke None; Cigarette Smoking Last 365 Days Yes; Reg Smoking Cessation Cadd Technician ing No entered on: 07/11/17 Assessment and Plan No data available for this section
--- OUTSIDE RECORDS SUMMARY | 2019-12-25 20:48 | XMS REPORT | Summary of Care ---
Author Author [facility] Organization [facility] Address Unknown Phone Unavailable Encounter CONTRERAS Gray(FIN) [id number] Date(s): 07/05/17 - 07/05/17 [facility] [address], [address] [place] [address] [phone] Discharge Disposition: Home or Self Care Attending [...] 01/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)1 1 Hyperlipemia, Active mixed(Confirmed) Maaknjujavjqzw81 03/09/14 Active Osteoarthritis(Confi Active rmed) Postmenopausal 09/01/13 Active state13 Screening - health 08/17/14 Resolved check14, 15 Type 2 diabetes 05/27/59 Active mellitus(Confirmed)1 6 Urinary 03/03/13 Active dnpgusmzskvo40 Urinary tract 04/28/14 Resolved infectious rfjlzxo14 On warfarin Active therapy(Confirmed) 1Data migrated from [...] Status: Ordered BD Ultra-Fine Mini Insulin Pen [place] 31G 5mm=3/16 inch 1 ea, MISC, Daily, [...] no reaction 2Result Comment: fluzone high dose [ddn176]. Migrated from OBS ; Data migrated from Solar[employer] on 06/28/2015. 3Result Comment: fluzone (>3 yrs.) [nbi600]. Migrated from OBS ; Data migrated from [employer] on 06/28/2015. 4Result Comment: pneumovax 23 [cvx33]. Migrated from OBS VIS: Pneumovax 23: 03/01/09 ; Data migrated from [employer] on 06/28/2015. Procedures Procedure Date Related Diagnosis [...] Last 365 Days Yes; Reg Smoking Cessation Energy And Conservation Technician ing No entered on: 07/11/17 Assessment and Plan No data available for this section
--- OUTSIDE RECORDS SUMMARY | 2019-12-25 20:48 | XMS REPORT | Summary of Care ---
Author Author [facility] Organization [facility] Address Unknown Phone Unavailable Encounter CONTRERAS Gray(LAN) [id number] Date(s): 01/30/19 - 01/30/19 [facility] [address] [place] [address]- [phone] Encounter Diagnosis Acute head trauma (Discharge Diagnosis) - 01/30/19 Discharge Disposition: Home or Self Care Attending Physician: Chance Hurley MD Vital Signs Most recent to 1 2 oldest [Reference Range]: Height 162.56 cm (01/30/19 3:05 PM) Temperature Oral 98.4 DegF 98.2 DegF [96.4-99.1 DegF] (01/30/19 5:00 PM) (01/30/19 3:05 PM) Blood Pressure 112/72 mmHg 107/65 mmHg [90-140/60-90 mmHg] (01/30/19 5:00 PM) (01/30/19 3:05 PM) Respiratory Rate 16 BRMIN 17 BRMIN [14-20 BRMIN] (01/30/19 5:00 PM) (01/30/19 3:05 PM) Peripheral Pulse 65 bpm 60 bpm Rate [60-100 bpm] (01/30/19 5:00 PM) (01/30/19 3:05 PM) Weight 65 kg (01/30/19 3:05 PM) Body Mass Index 24.6 m2 (01/30/19 3:05 PM) Problem List Condition Effective Dates Status [...] 01/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)1 1 Hyperlipemia, Active mixed(Confirmed) Byvpgivusuamlo31 03/09/14 Active Osteoarthritis(Confi Active rmed) Postmenopausal 09/01/13 Active state13 Screening - health 08/17/14 Resolved check14, 15 Type 2 diabetes 05/27/59 Active mellitus(Confirmed)1 6 Urinary 03/03/13 Active llxhvodxprsm45 Urinary tract 04/28/14 Resolved infectious On warfarin [...] No data available for this section Results Most recent to 1 oldest [Reference Range]: Neutrophils # 4.7 K/CMM [1.5-8.1 K/CMM] (01/30/19 3:17 PM) Lymphocytes # 1.0 K/CMM [1.0-5.5 K/CMM] (01/30/19 3:17 PM) Monocytes # [0.0-0.8 0.3 K/CMM K/CMM] (01/30/19 3:17 PM) Eosinophils # 0.1 K/CMM [0.0-0.5 K/CMM] (01/30/19 3:17 PM) Plt Morph [Normal] Normal (01/30/19 3:17 PM) eGFR 50 mL/min/1.73m2 1 *NA* (01/30/19 3:17 PM) A/G Ratio [0.7-1.6] 1.0 (01/30/19 3:17 PM) Albumin Lvl [3.5-5.0 3.9 g/dL g/dL] (01/30/19 3:17 PM) Alk Phos [39-136 91 unit/L unit/L] (01/30/19 3:17 PM) ALT [0-65 unit/L] 18 unit/L (01/30/19 3:17 PM) AGAP [10.0-20.0 11.6 mEq/L mEq/L] (01/30/19 3:17 PM) Anisocyte [None 1+ Seen] *ABN* (01/30/19 3:17 PM) AST [0-37 unit/L] 20 unit/L (01/30/19 3:17 PM) B/C Ratio [6-25] 27 *HI* (01/30/19 3:17 PM) Basophils [0.0-1.0 0.5 % %] (01/30/19 3:17 PM) BUN [7-22 mg/dL] 30 mg/dL *HI* (01/30/19 3:17 PM) Calcium Lvl 9.2 mg/dL [8.5-10.5 mg/dL] (01/30/19 3:17 PM) Chloride Lvl [95-109 107 mEq/L mEq/L] (01/30/19 3:17 PM) CO2 [24-32 mEq/L] 27 mEq/L (01/30/19 3: PM) Creatinine Lvl 1.10 mg/dL [0.50-1.40 mg/dL] (01/30/19 3:17 PM) Eosinophils [0.0-4.0 0.9 % %] (01/30/19 3: PM) Globulin [2.7-4.2 4.0 g/dL g/dL] (01/30/19 3: PM) Glucose Lvl [70-99 99 mg/dL mg/dL] (01/30/19: PM) Hct [36.0-48.0 %] 26.9 % *LOW* (01/30/19 3: PM) Hgb [12.0-16.0 g/dL] 8.5 g/dL *LOW* (01/30/19: PM) Hypochrom [None 1+ Seen] (01/30/19 3: PM) INR [0.85-1.17] 1.97 *HI* (01/30/19: PM) Potassium Lvl 4.6 mEq/L [3.5-5.1 mEq/L] (01/30/19 3: PM) Lymphocytes 16.0 % [20.0-40.0 %] *LOW* (01/30/19: PM) MCH [27.0-31.0 pg] 21.6 pg *LOW* (01/30/19: PM) MCHC [32.0-36.0 31.5 g/dL g/dL] *LOW* (01/30/19 3: PM) MCV [80.0-98.0 fL] 68.7 fL *LOW* (01/30/19: PM) Microcyte [None 3+ Seen] *NA* (01/30/19 3: PM) Monocytes [2.0-12.0 5.6 % %] (01/30/19 3: PM) MPV [7.4-10.4 fL] 9.2 fL (01/30/19 3:17 PM) Sodium Lvl [135-145 141 mEq/L mEq/L] (01/30/19 3:17 PM) Platelet [133-450 148 K/CMM K/CMM] (01/30/19 3:17 PM) Segs [45.0-75.0 %] 77.0 % *HI* (01/30/19 3:17 PM) Total Protein 7.9 g/dL [6.4-8.4 g/dL] (01/30/19 3:17 PM) PT [12.0-14.7 22.0 seconds seconds] *HI* (01/30/19 3:17 PM) PTT [22.9-35.8 49.6 seconds seconds] *HI* (01/30/19 3:17 PM) RBC [4.20-5.40 3.92 M/CMM M/CMM] *LOW* (01/30/19 3:17 PM) RDW [11.5-14.5 %] 19.6 % *HI* (01/30/19 3:17 PM) Bili Total [0.2-1.3 0.7 mg/dL mg/dL] (01/30/19 3:17 PM) Troponin-I <0.02 ng/mL [0.00-0.40 ng/mL] (01/30/19 3:17 PM) UA Bacteria [None Occasional /HPF Seen /HPF] *NA* (01/30/19 3:17 PM) UA Bili [Negative] Negative *NA* (01/30/19 3:17 PM) UA Blood [Negative] Negative (01/30/19 3:17 PM) UA Color [Yellow] Yellow *NA* (01/30/19 3:17 PM) UA Glucose [Negative Negative mg/dL mg/dL] *NA* (01/30/19 3:17 PM) UA Hyal Cast [0-2 1 /LPF /LPF] (01/30/19 3:17 PM) UA Ketones [Negative Negative mg/dL mg/dL] *NA* (01/30/19 3:17 PM) UA Leuk Est Negative [Negative] (01/30/19 3:17 PM) UA Mucus [None Seen Few /LPF /LPF] *NA* (01/30/19 3:17 PM) UA Nitrite Negative [Negative] (01/30/19 3:17 PM) UA pH [5.0-8.0] 6.0 (01/30/19 3:17 PM) UA Protein [Negative 30 mg/dL mg/dL] *ABN* (01/30/19 3:17 PM) UA RBC [0-2 /HPF] 1 /HPF (01/30/19 3:17 PM) UA Spec Grav 1.018 [<=1.030] (01/30/19 3:17 PM) UA Sq Epi [Few /LPF] Moderate /LPF *ABN* (01/30/19 3:17 PM) UA Turbidity [Clear] Clear (01/30/19 3:17 PM) UA Urobilinogen <=1.0 mg/dL [0.1-1.0 mg/dL] *NA* (01/30/19 3:17 PM) UA WBC [0-5 /HPF] <1 /HPF (01/30/19 3:17 PM) WBC [3.7-10.4 K/CMM] 6.1 K/CMM (01/30/19 3:17 PM) 1Result Comment: The eGFR is calculated using the [...] from the National Kidney Disease Education Program ( NKDEP) which additionally recommends that when the eGFR is used in patients with extremes of body mass index for purposes of drug dosing, the eGFR should be mul tiplied by the estimated BMI. Immunizations Given and Recorded Vaccine Date Status [...] no reaction 2Result Comment: fluzone high dose [twu073]. Migrated from OBS ; Data migrated from [employer] on 06/28/2015. 3Result Comment: fluzone (>3 yrs.) [esu932]. Migrated from OBS ; Data migrated from [employer] on 06/28/2015. 4Result Comment: pneumovax 23 [cvx33]. Migrated from OBS VIS: Pneumovax 23: 03/01/09 ; Data migrated from [employer] on 06/28/2015. Procedures Procedure Date Related Diagnosis Body Site Status Diabetic retinopathy screening1 02/08/17 Comple pita Mitral valve operation2 2011 Completed Cardiac pacemaker procedure Completed Cholecystectomy Completed Operation on uterus3 Completed 1Barcacel, OD 2replacement at [facility] 3tumor removed Social History Social History Type Response Alcohol Never Substance Abuse Use: None. 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
--- OUTSIDE RECORDS SUMMARY | 2019-12-25 20:48 | XMS REPORT | Summary of Care ---
Author Author [facility] Primary Care [facility] Organization [facility] Address Unknown Phone Unavailable Encounter HQ Isaac(FIN) [id number] Date(s): 01/31/18 - 02/01/18 [facility] [address] [address] Vital Signs No data available for this [...] 01/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)1 1 Hyperlipemia, Active mixed(Confirmed) Obzvywagizyqpj91 03/09/14 Active Osteoarthritis(Confi Active rmed) Postmenopausal 09/01/13 Active state13 Screening - health 08/17/14 Resolved check14, 15 Type 2 diabetes 05/27/59 Active mellitus(Confirmed)1 6 Urinary 03/03/13 Active huzrksevvsvv61 Urinary tract 04/28/14 Resolved infectious mviumit49 On warfarin Active therapy(Confirmed) 1Data migrated from [...] Substance Reaction Severity Status NKDA Active Medications Lantus Solostar Pen 100 units/mL subcutaneous solution See Instructions, INJECT 30 UNITS SUB-Q AT BEDTIME ROTATE INJECTION SITES, # 15 syr, 4 Refill(s), Pharmacy: [facility]/pharmacy #[id number] Start Date: 01/31/18 Status: Ordered Results No data available for [...] no reaction 2Result Comment: fluzone high dose [rex497]. Migrated from OBS ; Data migrated from [employer] on 06/28/2015. 3Result Comment: fluzone (>3 yrs.) [wav754]. Migrated from OBS ; Data migrated from [employer] on 06/28/2015. 4Result Comment: pneumovax 23 [cvx33]. Migrated from OBS VIS: Pneumovax 23: 03/01/09 ; Data migrated from [employer] on 06/28/2015. Procedures Procedure Date Related Diagnosis [...] Last 365 Days Yes; Reg Smoking Cessation Fiscal Accounting Clerk ing No entered on: 05/02/18 Assessment and Plan No data available for this section
--- OUTSIDE RECORDS SUMMARY | 2019-12-25 20:48 | XMS REPORT | Summary of Care ---
Author Author [facility] Organization [facility] Address Unknown Phone Unavailable Encounter CONTRERAS Gray(LAN) [id number] Date(s): 05/14/17 - 05/14/17 [facility] [address] [place] [address]- Final: Encounter for screening mammogram for malignant neoplasm of breast Discharge Disposition: Home or Self Care Attending Physician: Mohini Dee MD Referring Physician: Mohini Dee MD Vital Signs No data available for this section Problem List Condition Effective Dates Status Health Status Informan t Acute cystitis1 07/13/13 Resolved Anemia2 01/04/14 Active Anemia(Confirmed) Active Aortic valve 12/03/14 Active stenosis(Confirmed)3 Bleeding skin4 12/07/14 Active Atrial fibrillation, Active chronic(Confirmed) CVA (cerebral Resolved vascular accident)(Confirmed) Dental abscess5 10/13/13 Resolved Diabetes(Confirmed) Resolved Essential 05/27/59 Active hypertension6 H/O: CVA(Confirmed)7 05/27/59 Active H/O mitral valve Active replacement(Confirme d) Hypertension(Confirm Resolved ed) Insomnia8 03/09/14 Active Insomnia(Confirmed) Resolved Left 04/28/14 Active hemiparesis(Confirme d)9 Major depressive 03/09/14 Active disorder(Confirmed)1 0 Mitral valve 01/20/13 Active jgylqeks15 Hyperlipemia, Active mixed(Confirmed) Fnproblkesdook71 03/09/14 Active Osteoarthritis(Confi Active rmed) Postmenopausal 09/01/13 Active state13 Screening - health 08/17/14 Resolved check14, 15 Type 2 diabetes 05/27/59 Active urfpxzhw00 Urinary 03/03/13 Active wzaudvdbsdde21 Urinary tract 04/28/14 Resolved infectious On warfarin Active therapy(Confirmed) 1Data migrated from [employer] on 12/11/14. 2Data migrated from [employer] [...] no reaction 2Result Comment: fluzone high dose [lrf903]. Migrated from OBS ; Data migrated from [employer] on 06/28/2015. 3Result Comment: fluzone (>3 yrs.) [ucg112]. Migrated from OBS ; Data migrated from [employer] on 06/28/2015. 4Result Comment: pneumovax 23 [cvx33]. Migrated from OBS VIS: Pneumovax 23: 03/01/09 ; Data migrated from [employer] on 06/28/2015. Procedures Procedure Date Related Diagnosis Body Site Diabetic retinopathy screening1 02/08/17 Mitral valve operation2 2011 Cardiac pacemaker procedure Cholecystectomy Operation on uterus3 1Barcacel, OD 2replacement at [facility] 3tumor removed Social History Social History Type Response Substance Abuse Use: None. 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
--- OUTSIDE RECORDS SUMMARY | 2019-12-25 20:48 | XMS REPORT | Summary of Care ---
Author Author [facility] Primary Care [facility] Organization [facility] Address Unknown Phone Unavailable Encounter HQ Isaac(FIN) [id number] Date(s): 10/01/17 - 10/02/17 [facility] [address], [address] [place] [address]- [phone] Vital Signs No data available for this [...] 01/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)1 1 Hyperlipemia, Active mixed(Confirmed) Zrzoqllwqdmkhx78 03/09/14 Active Osteoarthritis(Confi Active rmed) Postmenopausal 09/01/13 Active state13 Screening - health 08/17/14 Resolved check14, 15 Type 2 diabetes 05/27/59 Active mellitus(Confirmed)1 6 Urinary 03/03/13 Active qqzzxswobtxp73 Urinary tract 04/28/14 Resolved infectious oyovzwh23 On warfarin Active therapy(Confirmed) 1Data migrated from [...] # 30 tab, 2 Refill(s ), Pharmacy: [facility]/pharmacy #[id number] Start Date: 10/01/17 Status: Ordered Results No [...] no reaction 2Result Comment: fluzone high dose [yay366]. Migrated from OBS ; Data migrated from [employer] on 06/28/2015. 3Result Comment: fluzone (>3 yrs.) [row654]. Migrated from OBS ; Data migrated from [employer] on 06/28/2015. 4Result Comment: pneumovax 23 [cvx33]. Migrated from OBS VIS: Pneumovax 23: 03/01/09 ; Data migrated from [employer] on 06/28/2015. Procedures Procedure Date Related Diagnosis [...] Last 365 Days Yes; Reg Smoking Cessation Executive Creative Director ing No entered on: 07/11/17 Assessment and Plan No data available for this section
--- OUTSIDE RECORDS SUMMARY | 2019-12-25 20:48 | XMS REPORT | Summary of Care ---
Author Author [facility] [place] Address Unknown Phone Unavailable Encounter HQ Isaac(FIN) [id number] Date(s): 10/05/19 - 10/05/19 [facility] [place] [address] Discharge Disposition: Home or Self Care Attending Physician: Karina Donohue MD Referring Physician: Karina Donohue MD Vital Signs No data available for [...] 01/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)1 1 Hyperlipemia, Active mixed(Confirmed) Khlxphcozughag22 03/09/14 Active Osteoarthritis(Confi Active rmed) Postmenopausal 09/01/13 Active state13 Screening - health 08/17/14 Resolved check14, 15 Type 2 diabetes 05/27/59 Active mellitus(Confirmed)1 6 Urinary 03/03/13 Active txxpotmejqtt03 Urinary tract 04/28/14 Resolved infectious twypysf66 On warfarin Active therapy(Confirmed) 1Data migrated from [...] no reaction 2Result Comment: fluzone high dose [yhv174]. Migrated from OBS ; Data migrated from [employer] on 06/28/2015. 3Result Comment: fluzone (>3 yrs.) [qif211]. Migrated from OBS ; Data migrated from [employer] on 06/28/2015. 4Result Comment: pneumovax 23 [cvx33]. Migrated from OBS VIS: Pneumovax 23: 03/01/09 ; Data migrated from [employer] on 06/28/2015. Procedures Procedure Date Related Diagnosis [...]
--- OUTSIDE RECORDS SUMMARY | 2019-12-25 20:48 | XMS REPORT | Summary of Care ---
Author Author [facility] Organization [facility] Address Unknown Phone Unavailable Encounter HQ Isaac(FIN) [id number] Date(s): 04/14/19 - 04/15/19 [facility] [address] [place] [address]- Vital Signs No data available for this [...] 01/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)1 1 Hyperlipemia, Active mixed(Confirmed) Nxgujhpucftstv71 03/09/14 Active Osteoarthritis(Confi Active rmed) Postmenopausal 09/01/13 Active state13 Screening - health 08/17/14 Resolved check14, 15 Type 2 diabetes 05/27/59 Active mellitus(Confirmed)1 6 Urinary 03/03/13 Active lywdsgcadnuf60 Urinary tract 04/28/14 Resolved infectious epxcitf61 On warfarin Active therapy(Confirmed) 1Data migrated from [employer] on 12/11/14. 2Data migrated from [employer] [...] no reaction 2Result Comment: fluzone high dose [mau489]. Migrated from OBS ; Data migrated from [employer] on 06/28/2015. 3Result Comment: fluzone (>3 yrs.) [phm586]. Migrated from OBS ; Data migrated from [employer] on 06/28/2015. 4Result Comment: pneumovax 23 [cvx33]. Migrated from OBS VIS: Pneumovax 23: 03/01/09 ; Data migrated from [employer] on 06/28/2015. Procedures Procedure Date Related Diagnosis Body Site Status Diabetic retinopathy screening1 02/08/17 Comple pita Mitral valve operation2 2011 Completed Cardiac pacemaker procedure Completed Cholecystectomy Completed Operation on uterus3 Completed 1Barcacel, OD 2replacement at [facility] 3tumor removed Social History Social History Type Response Alcohol Never Substance Abuse Use: None. Smoking Status Never smoker; Exposure to T obacco Smoke None; Cigarette Smoking Last 365 Days Yes; Reg Smoking Cessation Content Management Specialist ing No entered on: 12/10/18 Assessment and Plan No data available for this section
--- OUTSIDE RECORDS SUMMARY | 2019-12-25 20:48 | XMS REPORT | Summary of Care ---
Author Author [facility] Primary Care [facility] Organization [facility] Address Unknown Phone Unavailable Encounter HQ Isaac(FIN) [id number] Date(s): 11/25/18 - 11/26/18 [facility] [address] [address]- Vital Signs No data available for this [...] 01/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)1 1 Hyperlipemia, Active mixed(Confirmed) Tyzkyvjfulnggi55 03/09/14 Active Osteoarthritis(Confi Active rmed) Postmenopausal 09/01/13 Active state13 Screening - health 08/17/14 Resolved check14, 15 Type 2 diabetes 05/27/59 Active mellitus(Confirmed)1 6 Urinary 03/03/13 Active fsbpesdmhysq91 Urinary tract 04/28/14 Resolved infectious adbkeik12 On warfarin Active therapy(Confirmed) 1Data migrated from [employer] on 12/11/14. 2Data migrated from [employer] on 10/23/14. 3Data migrated from [employer] [...] Reactions, Alerts No Known Medication Allergies Medications Metoprolol Tartrate 25 mg oral tablet = 1 tab, PO, BID, # 180 tab, 0 Refill(s), Pharmacy: [facility]/pharmacy #[id number] Start Date: 11/25/18 Stop Date: 02/23/19 Status: Ordered Results No data available for [...] no reaction 2Result Comment: fluzone high dose [dfp495]. Migrated from OBS ; Data migrated from [employer] on 06/28/2015. 3Result Comment: fluzone (>3 yrs.) [jnb159]. Migrated from OBS ; Data migrated from [employer] on 06/28/2015. 4Result Comment: pneumovax 23 [cvx33]. Migrated from OBS VIS: Pneumovax 23: 03/01/09 ; Data migrated from [employer] on 06/28/2015. Procedures Procedure Date Related Diagnosis Body Site Status Diabetic retinopathy screening1 02/08/17 Comple pita Mitral valve operation2 2011 Completed Cardiac pacemaker procedure Completed Cholecystectomy Completed Operation on uterus3 Completed 1Barcacel, OD 2replacement at [facility] 3tumor removed Social History Social History Type Response Substance Abuse Use: None. Alcohol Never Smoking Status Never smoker; Exposure to T obacco Smoke None; Cigarette Smoking Last 365 Days Yes; Reg Smoking Cessation Weed Controller ing No entered on: 09/03/18 Assessment and Plan No data available for this section
--- OUTSIDE RECORDS SUMMARY | 2019-12-25 20:49 | XMS REPORT | CCD ---
Author Author [employer] [facility] Address Unknown Phone Unavailable Care Team Providers Care Administrative Secretary Name Role Phone Aaron Tapia RP Allergies, Adverse Reactions, Alerts Substance Reaction Status NKDA Active Medications Medication Instructions Start Date End Date Status influenza virus 0.5 ml, Route: IM, Drug Form: INJ, 07/01/2008 07/09/2008 Completed vaccine, inactivated ONCALL, Start date: 9 23:18:06, Stop date: 07/31/08 23:03:06 Immunizations Vaccine Date Status influenza virus vaccine, inactivated 07/09/2008 [facility] (Verified)
--- OUTSIDE RECORDS SUMMARY | 2019-12-25 20:49 | XMS REPORT | Summary of Care ---
Author Author [facility] Primary Care [facility] Organization [facility] Address Unknown Phone Unavailable Encounter HQ Isaac(FIN) [id number] Date(s): 12/20/17 - 12/21/17 [facility] [address], [address] [place], [place] [address]- [phone] Vital Signs No data available for this [...] 01/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)1 1 Hyperlipemia, Active mixed(Confirmed) Qbgvtecdorauye09 03/09/14 Active Osteoarthritis(Confi Active rmed) Postmenopausal 09/01/13 Active state13 Screening - health 08/17/14 Resolved check14, 15 Type 2 diabetes 05/27/59 Active mellitus(Confirmed)1 6 Urinary 03/03/13 Active kolicjrlnlkx10 Urinary tract 04/28/14 Resolved infectious vthudir61 On warfarin Active therapy(Confirmed) 1Data migrated from [...] Substance Reaction Severity Status NKDA Active Medications metFORMIN 1000 mg oral tablet 1,000 mg = 1 tab, PO, BID, # 180 tab, 1 Refill(s), Pharmacy: [facility]/pharmacy #[id number] Start Date: 12/20/17 Stop Date: 07/01/18 Status: Completed Results No data available for [...] no reaction 2Result Comment: fluzone high dose [hri673]. Migrated from OBS ; Data migrated from [employer] on 06/28/2015. 3Result Comment: fluzone (>3 yrs.) [ofj186]. Migrated from OBS ; Data migrated from [employer] on 06/28/2015. 4Result Comment: pneumovax 23 [cvx33]. Migrated from OBS VIS: Pneumovax 23: 03/01/09 ; Data migrated from [employer] on 06/28/2015. Procedures Procedure Date Related Diagnosis Body Site Status Diabetic retinopathy screening1 02/08/17 Comple pita Mitral valve operation2 2011 Completed Cardiac pacemaker procedure Completed Cholecystectomy Completed Operation on uterus3 Completed 1Barcacel, OD 2replacement at [facility] 3tumor removed Social History Social History Type Response Substance Abuse Use: None. 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
--- OUTSIDE RECORDS SUMMARY | 2019-12-25 20:49 | XMS REPORT | Summary of Care ---
Author Author [facility] Primary Care [facility] Organization [facility] Address Unknown Phone Unavailable Encounter CONTRERAS Gray(FIN) [id number] Date(s): 08/12/18 - 08/12/18 [facility] [address] [address]- Attending Physician: Mohini Dee MD Vital Signs [...] 01/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)1 1 Hyperlipemia, Active mixed(Confirmed) Bhvmgohrjzzzpp99 03/09/14 Active Osteoarthritis(Confi Active rmed) Postmenopausal 09/01/13 Active state13 Screening - health 08/17/14 Resolved check14, 15 Type 2 diabetes 05/27/59 Active mellitus(Confirmed)1 6 Urinary 03/03/13 Active lwzwzkxvfwty17 Urinary tract 04/28/14 Resolved infectious rsouuxa37 On warfarin Active therapy(Confirmed) 1Data migrated from [employer] on 12/11/14. 2Data migrated from [employer] [...] no reaction 2Result Comment: fluzone high dose [rtp136]. Migrated from OBS ; Data migrated from [employer] on 06/28/2015. 3Result Comment: fluzone (>3 yrs.) [qsi915]. Migrated from OBS ; Data migrated from [employer] on 06/28/2015. 4Result Comment: pneumovax 23 [cvx33]. Migrated from OBS VIS: Pneumovax 23: 03/01/09 ; Data migrated from [employer] on 06/28/2015. 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
--- OUTSIDE RECORDS SUMMARY | 2019-12-25 20:49 | XMS REPORT | Summary of Care ---
Author Author [facility] Primary Care [facility] Organization [facility] Address Unknown Phone Unavailable Encounter CONTRERAS Gray(FIN) [id number] Date(s): 06/17/18 - 06/18/18 [facility] [address], [address] [place], [place] [address]- [phone] Vital Signs No data available for this [...] 01/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)1 1 Hyperlipemia, Active mixed(Confirmed) Bzofkhnsesibaw99 03/09/14 Active Osteoarthritis(Confi Active rmed) Postmenopausal 09/01/13 Active state13 Screening - health 08/17/14 Resolved check14, 15 Type 2 diabetes 05/27/59 Active mellitus(Confirmed)1 6 Urinary 03/03/13 Active rkrvekdamqgb56 Urinary tract 04/28/14 Resolved infectious etlssjj35 On warfarin Active therapy(Confirmed) 1Data migrated from [...] Substance Reaction Severity Status NKDA Active Medications ACCU-CHEK ADRIÁN PLUS TEST STRP See Instructions, # 50 strip, Refill(s) 5, USE DIRECTED ONCE DAILY, Pharmacy: [facility]/pharmacy #[id number] Start Date: 06/17/18 Status: Ordered Results [...] no reaction 2Result Comment: fluzone high dose [neq363]. Migrated from OBS ; Data migrated from [employer] on 06/28/2015. 3Result Comment: fluzone (>3 yrs.) [kyi307]. Migrated from OBS ; Data migrated from [employer] on 06/28/2015. 4Result Comment: pneumovax 23 [cvx33]. Migrated from OBS VIS: Pneumovax 23: 03/01/09 ; Data migrated from [employer] on 06/28/2015. Procedures Procedure Date Related Diagnosis [...] Last 365 Days Yes; Reg Smoking Cessation Jointer Machine ing No entered on: 05/02/18 Assessment and Plan No data available for this section
--- OUTSIDE RECORDS SUMMARY | 2019-12-25 20:49 | XMS REPORT | Summary of Care ---
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) - Presence of cardiac pacemaker (Final) - Presence of prosthetic heart valve (Final) - Type 2 diabetes mellitus without complications (Final) - Chronic atrial fibrillation (Final) - Hypothyroidism, unspecified (Final) - Mixed hyperlipidemia (Final) - Major depressive disorder, single episode, unspecified (Final) - 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) - Unspecified osteoarthritis, unspecified site (Final) - intermodal dispatcher (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 (Final) - jail (current) use of anticoagulants (Final) - intermodal dispatcher (current) use of aspirin (Final) - 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) - Discharge Disposition: Home or Self Care Attending Physician: Jannet Enamorado MD Admitting Physician: Jannet Enamorado MD Vital Signs 1 2 3 Most recent to oldest [Reference Range]: 165.1 cm (02/25/18 10:10 PM) 160.02 cm (02/25/18 12:59 PM) Height 98.2 DegF (02/26/18 3:24 PM) 98.3 DegF (02/26/18 10:36 AM) 97.8 DegF (02/26/18 7:10 AM) Temperature Oral [96.4-99.1 DegF] 108/58 mmHg (02/26/18 3:24 PM) 114/53 mmHg (02/26/18 10:36 AM) 110/72 mmHg (02/26/18 7:10 AM) Blood Pressure [90-140/60-90 mmHg] 17 BRMIN (02/26/18 3:24 PM) 17 BRMIN (02/26/18 10:36 AM) 17 BRMIN (02/26/18 7:10 AM) Respiratory Rate [14-20 BRMIN] 60 bpm (02/26/18 3:24 PM) 60 bpm (02/26/18 10:36 AM) 60 bpm (02/26/18 7:10 AM) Peripheral Pulse Rate [60-100 bpm] 63.6 kg (02/25/18 10:10 PM) 63.636 kg (02/25/18 12:59 PM) Weight 23.33 m2 (02/25/18 10:10 PM) 24.85 m2 (02/25/18 12:59 PM) Body Mass Index Problem List Condition Effective [...] 01/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)1 1 Hyperlipemia, Active mixed(Confirmed) [id number] 03/09/14 Active Osteoarthritis(Confi Active rmed) Postmenopausal 09/01/13 Active state13 Screening - health 08/17/14 Resolved check14, 15 Type 2 diabetes 05/27/59 Active mellitus(Confirmed)1 6 Urinary 03/03/13 Active [id number] Urinary tract 04/28/14 Resolved infectious On warfarin [...] Substance Reaction Severity Status NKDA Active Medications acetaminophen 650 mg, 2 tab, Route: PO, Drug form: TAB, Q6H, Dosing Weight 63.636, kg, PRN Jihan n 1-3/Temp > 100.4 F, Start date: 02/25/18 18:49:00 CDT, Duration: 30 day, Stop date: 03/27/18 18:48:00 CDT Notes: Do not exceed 4 gm/day. (Same as: Tylenol) Start Date: 02/25/18 Stop Date: 02/26/18 Status: Discontinued acetaminophen-hydrocodone 325 mg-5 mg oral tablet 1 tab, Route: PO, Drug Form: TAB, Dosing Weight 63.636, kg, Q6H, PRN Pain Score 4-6, Start date: 02/25/18 18:49:00 CDT, Duration: 30 day, Stop date: 03/27/18 18 :48:00 CDT Notes: (Same as: Raymond 325/5) Do not exceed 4gm/day of acetaminophen. Start Date: 02/25/18 Stop Date: 02/26/18 Status: Discontinued aspirin 81 mg tablet, enteric coated 81 mg, 1 tab, Route: PO, Drug form: ECTAB, Daily, Dosing Weight 63.6, kg, Start date: 02/26/18 9:00:00 CDT, Duration: 30 day, Stop date: 03/27/18 9:00:00 CDT Notes: Do not crush or chew.(Same As: Ecotrin) Start Date: 02/26/18 Stop Date: 02/26/18 Status: Discontinued atorvastatin 40 mg, 1 tab, Route: PO, Drug form: TAB, Bedtime, Dosing Weight 63.6, kg, Start date: 02/26/18 21:00:00 CDT, Duration: 30 day, Stop date: 03/27/18 21:00:00 CDT Notes: (Same as: Lipitor) Start Date: 02/26/18 Stop Date: 02/26/18 Status: Canceled Benadryl 12.5 mg, 0.5 tab, Route: PO, Drug form: TAB, Q8H, Dosing Weight 63.636, kg, PRN as needed for itching, Priority: Routine, Start date: 02/25/18 18:49:00 CDT, Dur ation: 30 day, Stop date: 03/27/18 18:48:00 CDT Start Date: 02/25/18 Stop Date: 02/26/18 Status: Discontinued Coumadin 6 mg, 3 tab, Route: PO, Drug form: TAB, Q5PM, Dosing Weight 63.6, kg, Start date : 02/27/18 17:00:00 CDT, Duration: 7 day, Stop date: 03/05/18 17:00:00 CDT Notes: Nurse to ensure documentation of patient education per anticoagulation po licy.Avoid large intake of vitamin-K containing foods diet.(Same As: Coumadin)ELOINA JAIMEE: F/P - P Waste Black; E - P Waste Black Start Date: 02/27/18 Stop Date: 02/26/18 Status: Canceled Dextrose 50% Syringe 50 mL, Route: IVP, Dosing Weight 63.6, kg, PRN, PRN Blood Glucose Results, Start date: 02/26/18 2:37:00 CDT, Duration: 30 day, Stop date: 03/28/18 2:36:00 CDT Start Date: 02/26/18 Stop Date: 02/26/18 Status: Discontinued Dextrose 50% Syringe 25 mL, Route: IVP, Dosing Weight 63.6, kg, PRN, PRN Blood Glucose Results, Start date: 02/26/18 2:37:00 CDT, Duration: 30 day, Stop date: 03/28/18 2:36:00 CDT Start Date: 02/26/18 Stop Date: 02/26/18 Status: Discontinued Dextrose 50% Syringe 12.5 gm, 25 mL, Route: IVP, Drug Form: INJ, Dosing Weight 63.6, kg, PRN, PRN Blo od Glucose Results, Start date: 02/26/18 2:37:00 CDT, Duration: 30 day, Stop megan e: 03/28/18 2:36:00 CDT Start Date: 02/26/18 Stop Date: 02/26/18 Status: Discontinued Dextrose 50% Syringe 25 gm, 50 mL, Route: IVP, Drug Form: INJ, Dosing Weight 63.6, kg, PRN, PRN Blood Glucose Results, Start date: 02/26/18 2:37:00 CDT, Duration: 30 day, Stop date: 03/28/18 2:36:00 CDT Start Date: 02/26/18 Stop Date: 02/26/18 Status: Discontinued digoxin 125 mcg (0.125 mg) oral tablet 0.125 mg, 1 tab, Route: PO, Drug form: TAB, Daily, Dosing Weight 63.6, kg, Start date: 02/26/18 9:00:00 CDT, Duration: 30 day, Stop date: 03/27/18 9:00:00 CDT Notes: Take on an Empty Stomach (Same as: Lanoxin) Start Date: 02/26/18 Stop Date: 02/26/18 Status: Discontinued docusate 100 mg, 1 cap, Route: PO, Drug form: CAP, BID, Dosing Weight 63.636, kg, PRN as needed for constipation, Start date: 02/25/18 18:49:00 CDT, Duration: 30 day, St op date: 03/27/18 18:48:00 CDT Notes: (Same as: Colace) (Do Not Crush) Start Date: 02/25/18 Stop Date: 02/26/18 Status: Discontinued escitalopram 10 mg, 1 tab, Route: PO, Drug form: TAB, Daily, Dosing Weight 63.6, kg, Start da te: 02/26/18 9:00:00 CDT, Duration: 30 day, Stop date: 03/27/18 9:00:00 CDT Notes: (Same as: Lexapro) Start Date: 02/26/18 Stop Date: 02/26/18 Status: Discontinued furosemide 40 mg oral tablet 40 mg, 1 tab, Route: PO, Drug form: TAB, Daily, Dosing Weight 63.6, kg, Start da te: 02/26/18 9:00:00 CDT, Duration: 30 day, Stop date: 03/27/18 9:00:00 CDT Notes: (Same as: Lasix) May cause GI upset. Give with food or milk. Start Date: 02/26/18 Stop Date: 02/26/18 Status: Discontinued glucagon 1 mg, Route: IM, PRN, Dosing Weight 63.6, kg, PRN Blood Glucose Results, Start d ate: 02/26/18 2:37:00 CDT, Duration: 30 day, Stop date: 03/28/18 2:36:00 CDT Start Date: 02/26/18 Stop Date: 02/26/18 Status: Discontinued glucagon 1 mg, Route: IM, Drug form: PDR/INJ, PRN, Dosing Weight 63.6, kg, PRN Blood Gluc ose Results, Start date: 02/26/18 2:37:00 CDT, Duration: 30 day, Stop date: 07/14 2:36:00 CDT Start Date: 02/26/18 Stop Date: 02/26/18 Status: Discontinued insulin lispro 1 unit, 0.01 mL, Route: SUB-Q, Drug form: SOLN, Bedtime, Dosing Weight 63.6, kg, PRN Blood Glucose Results, Start date: 02/26/18 2:37:00 CDT, Duration: 30 day, Stop date: 03/28/18 2:36:00 CDT Notes: (Same as: Humalog ) Roll in palms of hands gently; Do not shake `vigorou sly. "Single Patient Use Only " WASTE: F/P - Black; E - [facility] [employer] [facility] [address] able for 28 days at room temperature.Expires in days from Da te Start Date: 02/26/18 Stop Date: 02/26/18 Status: Discontinued insulin lispro 2 unit, 0.02 mL, Route: SUB-Q, Drug form: SOLN, Bedtime, Dosing Weight 63.6, kg, PRN Blood Glucose Results, Start date: 02/26/18 2:37:00 CDT, Duration: 30 day, Stop date: 03/28/18 2:36:00 CDT Notes: (Same as: Humalog ) Roll in palms of hands gently; Do not shake `vigorou sly. "Single Patient Use Only " WASTE: F/P - Black; E - [facility] [address] [address] able for 28 days at room temperature.Expires in days from Da te Start Date: 02/26/18 Stop Date: 02/26/18 Status: Discontinued insulin lispro 3 unit, 0.03 mL, Route: SUB-Q, Drug form: SOLN, Bedtime, Dosing Weight 63.6, kg, PRN Blood Glucose Results, Start date: 02/26/18 2:37:00 CDT, Duration: 30 day, Stop date: 03/28/18 2:36:00 CDT Notes: (Same as: Humalog ) Roll in palms of hands gently; Do not shake `vigorou sly. "Single Patient Use Only " WASTE: F/P - Black; E - [facility] [facility] [address] able for 28 days at room temperature.Expires in days from Da te Start Date: 02/26/18 Stop Date: 02/26/18 Status: Discontinued insulin lispro 4 unit, 0.04 mL, Route: SUB-Q, Drug form: SOLN, Bedtime, Dosing Weight 63.6, kg, PRN Blood Glucose Results, Start date: 02/26/18 2:37:00 CDT, Duration: 30 day, Stop date: 03/28/18 2:36:00 CDT Notes: (Same as: Humalog ) Roll in palms of hands gently; Do not shake `vigorou sly. "Single Patient Use Only " WASTE: F/P - Black; E - [facility] [address] able for 28 days at room temperature.Expires in days from Da te Start Date: 02/26/18 Stop Date: 02/26/18 Status: Discontinued insulin lispro 10 unit, 0.1 mL, Route: SUB-Q, Drug form: SOLN, TID-Before Meals, Dosing Weight 63.6, kg, PRN Blood Glucose Results, Start date: 02/26/18 2:37:00 CDT, Duration: 30 day, Stop date: 03/28/18 2:36:00 CDT Notes: (Same as: Humalog ) Roll in palms of hands gently; Do not shake `vigorou sly. "Single Patient Use Only " WASTE: F/P - Black; E - [facility] [address] able for 28 days at room temperature.Expires in days from Da te Start Date: 02/26/18 Stop Date: 02/26/18 Status: Discontinued insulin lispro 6 unit, 0.06 mL, Route: SUB-Q, Drug form: SOLN, TID-Before Meals, Dosing Weight 63.6, kg, PRN Blood Glucose Results, Start date: 02/26/18 2:37:00 CDT, Duration: 30 day, Stop date: 03/28/18 2:36:00 CDT Notes: (Same as: Humalog ) Roll in palms of hands gently; Do not shake `vigorou sly. "Single Patient Use Only " WASTE: F/P - Black; E - [facility] [address] able for 28 days at room temperature.Expires in days from Da te Start Date: 02/26/18 Stop Date: 02/26/18 Status: Discontinued insulin lispro 8 unit, 0.08 mL, Route: SUB-Q, Drug form: SOLN, TID-Before Meals, Dosing Weight 63.6, kg, PRN Blood Glucose Results, Start date: 02/26/18 2:37:00 CDT, Duration: 30 day, Stop date: 03/28/18 2:36:00 CDT Notes: (Same as: Humalog ) Roll in palms of hands gently; Do not shake `vigorou sly. "Single Patient Use Only " WASTE: F/P - Black; E - [facility] [address] able for 28 days at room temperature.Expires in days from Da te Start Date: 02/26/18 Stop Date: 02/26/18 Status: Discontinued insulin lispro 2 unit, 0.02 mL, Route: SUB-Q, Drug form: SOLN, TID-Before Meals, Dosing Weight 63.6, kg, PRN Blood Glucose Results, Start date: 02/26/18 2:37:00 CDT, Duration: 30 day, Stop date: 03/28/18 2:36:00 CDT Notes: (Same as: Humalog ) Roll in palms of hands gently; Do not shake `vigorou sly. "Single Patient Use Only " WASTE: F/P - Black; E - [facility] [address] able for 28 days at room temperature.Expires in days from Da te Start Date: 02/26/18 Stop Date: 02/26/18 Status: Discontinued insulin lispro 4 unit, 0.04 mL, Route: SUB-Q, Drug form: SOLN, TID-Before Meals, Dosing Weight 63.6, kg, PRN Blood Glucose Results, Start date: 02/26/18 2:37:00 CDT, Duration: 30 day, Stop date: 03/28/18 2:36:00 CDT Notes: (Same as: Humalog ) Roll in palms of hands gently; Do not shake `vigorou sly. "Single Patient Use Only " WASTE: F/P - Black; E - [facility] [address] able for 28 days at room temperature.Expires in days from Da te Start Date: 02/26/18 Stop Date: 02/26/18 Status: Discontinued lactulose 10 g/15 mL oral syrup 30 gm, 45 ml, Route: PO, Drug form: SYRP, BID, Dosing Weight 63.636, kg, PRN as needed for constipation, Priority: Routine, Start date: 02/25/18 18:49:00 CDT, D uration: 30 day, Stop date: 03/27/18 18:48:00 CDT Notes: (Same as:Chronulac) Start Date: 02/25/18 Stop Date: 02/26/18 Status: Discontinued Lantus Solostar Pen 100 units/mL subcutaneous solution 25 unit, 0.25 mL, Route: SUB-Q, Drug form: SOLN, Bedtime, Dosing Weight 63.6, kg , Start date: 02/26/18 21:00:00 CDT, Duration: 30 day, Stop date: 03/27/18 21:00 :00 CDT Notes: (Same as: Lantus)Do not hold insulin without contacting prescriberWASTE: F/P - Black; E - [employer] Trash Bin "single patient use only" Start Date: 02/26/18 Stop Date: 02/26/18 Status: Canceled Lasix 40 mg, 4 mL, Route: IVP, Drug form: INJ, ONCE, Dosing Weight 63.6, kg, Start megan e: 02/25/18 23:08:00 CDT, Stop date: 02/25/18 23:08:00 CDT Notes: (Same as: Lasix) MEDICATION WASTE Product Size: 40 mgProduct Was pita: ___ mg Start Date: 02/25/18 Stop Date: 02/26/18 Status: Completed losartan 25 mg, 1 tab, Route: PO, Drug form: TAB, Daily, Dosing Weight 63.6, kg, Start da te: 02/26/18 9:00:00 CDT, Duration: 30 day, Stop date: 03/27/18 9:00:00 CDT Notes: (Same as: Cozaar) Start Date: 02/26/18 Stop Date: 02/26/18 Status: Discontinued melatonin 3 mg, 1 tab, Route: PO, Drug form: TAB, Bedtime, Dosing Weight 63.636, kg, PRN S leep, Start date: 02/25/18 18:49:00 CDT, Duration: 30 day, Stop date: 03/27/18 1 8:48:00 CDT Notes: (Same as: Melatonin) Start Date: 02/25/18 Stop Date: 02/26/18 Status: Discontinued morphine Sulfate 2 mg, 0.5 mL, Route: IVP, Drug form: SOLN, Q4H, Dosing Weight 63.636, kg, PRN Pa in Score 7-10, Start date: 02/25/18 18:49:00 CDT, Duration: 30 day, Stop date: 1 05/27/17 18:48:00 CDT Notes: (Same as:MORPhine Sulfate) Start Date: 02/25/18 Stop Date: 02/26/18 Status: Discontinued ondansetron 4 mg, 2 mL, Route: IVP, Drug form: INJ, Q6H, Dosing Weight 63.636, kg, PRN Nause a & Vomiting, Start date: 02/25/18 18:49:00 CDT, Duration: 30 day, Stop date: 03/27/18 18:48:00 CDT Notes: (Same as: Charity) MEDICATION WASTE Product Size: 4 mgProduct Was pita: ___ mg Start Date: 02/25/18 Stop Date: 02/26/18 Status: Discontinued Protonix 40 mg, 1 tab, Route: PO, Drug form: ECTAB, Before Breakfast, Dosing Weight 63.63 6, kg, Start date: 02/26/18 7:30:00 CDT, Duration: 30 day, Stop date: 03/27/18 7 :30:00 CDT Notes: Tablet should not be chewed or crushed.(Same as: Protonix) Start Date: 02/26/18 Stop Date: 02/26/18 Status: Discontinued Saline Flush 0.9% 10 mL, Route: IVP, Drug Form: INJ, Dosing Weight 63.636, kg, PRN, PRN Line Flush , Start date: 02/25/18 13:23:00 CDT, Duration: 30 day, Stop date: 03/27/18 13:22 :00 CDT Notes: (Same as: BD Posiflush) Start Date: 02/25/18 Stop Date: 02/25/18 Status: Discontinued SEROquel 12.5 mg, 0.5 tab, Route: PO, Drug form: TAB, BID, Dosing Weight 63.636, kg, PRN Agitation, Start date: 02/25/18 18:49:00 CDT, Duration: 30 day, Stop date: 03/27 18:48:00 CDT Notes: (Same as: SEROquel) Start Date: 02/25/18 Stop Date: 02/26/18 Status: Discontinued Tessalon Perles 100 mg, 1 cap, Route: PO, Drug form: CAP, TID, Dosing Weight 63.636, kg, PRN Cou gh, Start date: 02/25/18 18:49:00 CDT, Duration: 30 day, Stop date: 03/27/18 18: 48:00 CDT Notes: (Same As: Tessalon Perles)"Do Not Crush" Start Date: 02/25/18 Stop Date: 02/26/18 Status: Discontinued Toprol-XL 25 mg oral tablet, extended release 25 mg, 1 tab, Route: PO, Drug form: ERTAB, Daily, Start date: 02/26/18 9:00:00 C DT, Duration: 30 day, Stop date: 03/27/18 9:00:00 CDT Notes: (Same as: Toprol XL) Do Not Crush Start Date: 02/26/18 Stop Date: 02/26/18 Status: Discontinued Travatan Z 0.004% ophthalmic solution 1 drp, Route: OPTH, Drug Form: SOLN, Dosing Weight 63.6, kg, QPM, Start date: 17:00:00 CDT, Duration: 30 day, Stop date: 03/27/18 17:00:00 CDT Notes: Non-formulary DrugSame As: Travatan or Travatan Z Start Date: 02/26/18 Stop Date: 02/26/18 Status: Discontinued Vasotec 0.625 mg, 0.5 mL, Route: IVP, Drug form: INJ, Q6H, Dosing Weight 63.636, kg, PRN Elevated BP, Start date: 02/25/18 18:49:00 CDT, Duration: 30 day, Stop date: 18:48:00 CDT Notes: (Same as: Vasotec-IV) Start Date: 02/25/18 Stop Date: 02/26/18 Status: Discontinued warfarin 7.5 mg, 1 tab, Route: PO, Drug form: TAB, ONCE, Dosing Weight 63.6, kg, Start da te: 02/26/18 16:00:00 CDT, Stop date: 02/26/18 16:00:00 CDT Notes: Nurse to ensure documentation of patient education per anticoagulation po licy.Avoid large intake of vitamin-K containing foods diet.WASTE: F/P - P Waste Black; E - P Waste Black(Same As: Coumadin) Start Date: 02/26/18 Stop Date: 02/26/18 Status: Completed warfarin 5 mg, 1 tab, Route: PO, Drug form: TAB, Q5PM, Dosing Weight 63.6, kg, Start date : 02/26/18 17:00:00 CDT, Duration: 30 day, Stop date: 03/27/18 17:00:00 CDT Start Date: 02/26/18 Stop Date: 02/26/18 Status: Canceled Results ELECTROLYTES Most recent to 1 2 oldest [Reference Range]: Sodium Lvl [135-145 143 mEq/L 141 mEq/L mEq/L] (02/26/18 3:29 AM) (02/25/18 1:36 PM) Potassium Lvl 3.9 mEq/L 4.5 mEq/L [3.5-5.1 mEq/L] (02/26/18 3:29 AM) (02/25/18 1:36 PM) Chloride Lvl [95-109 103 mEq/L 102 mEq/L mEq/L] (02/26/18 3:29 AM) (02/25/18 1:36 PM) CO2 [24-32 mEq/L] 27 mEq/L 25 mEq/L (02/26/18 3:29 AM) (02/25/18 1:36 PM) AGAP [10.0-20.0 16.9 mEq/L 18.5 mEq/L mEq/L] (02/26/18 3:29 AM) (02/25/18 1:36 PM) CHEM PANEL Most recent to 1 2 oldest [Reference Range]: Creatinine Lvl 0.93 mg/dL 1.05 mg/dL [0.50-1.40 mg/dL] (02/26/18 3:29 AM) (02/25/18 1:36 PM) eGFR 62 mL/min/1.73m2 1 53 mL/min/1.73m2 2 *NA* *NA* (02/26/18 3:29 AM) (02/25/18 1:36 PM) BUN [7-22 mg/dL] 28 mg/dL 24 mg/dL *HI* *HI* (02/26/18 3:29 AM) (02/25/18 1:36 PM) B/C Ratio [6-25] 30 23 *HI* (02/25/18 1:36 PM) (02/26/18 3:29 AM) Glucose Lvl [70-99 182 mg/dL 167 mg/dL mg/dL] *HI* *HI* (02/26/18 3:29 AM) (02/25/18 1:36 PM) Total Protein 7.8 g/dL 8.1 g/dL [6.4-8.4 g/dL] (02/26/18 3:29 AM) (02/25/18 1:36 PM) Albumin Lvl [3.5-5.0 3.6 g/dL 3.8 g/dL g/dL] (02/26/18 3:29 AM) (02/25/18 1:36 PM) Globulin [2.7-4.2 4.2 g/dL 4.3 g/dL g/dL] (02/26/18 3:29 AM) *HI* (02/25/18 1:36 PM) A/G Ratio [0.7-1.6] 0.9 0.9 (02/26/18 3:29 AM) (02/25/18 1:36 PM) Calcium Lvl 8.9 mg/dL 8.8 mg/dL [8.5-10.5 mg/dL] (02/26/18 3:29 AM) (02/25/18 1:36 PM) Magnesium Lvl 2.1 mg/dL [1.8-2.4 mg/dL] (02/26/18 3:29 AM) ALT [0-65 unit/L] 23 unit/L 23 unit/L (02/26/18 3:29 AM) (02/25/18 1:36 PM) AST [0-37 unit/L] 24 unit/L 31 unit/L (02/26/18 3:29 AM) (02/25/18 1:36 PM) Alk Phos [39-136 115 unit/L 108 unit/L unit/L] (02/26/18 3:29 AM) (02/25/18 1:36 PM) Bili Total [0.2-1.3 0.5 mg/dL 0.7 mg/dL mg/dL] (02/26/18 3:29 AM) (02/25/18 1:36 PM) 1Result Comment: The eGFR is calculated [...] be mul tiplied by the estimated BMI. 2Result Comment: The eGFR is calculated using the [...] be mul tiplied by the estimated BMI. CARDIAC ENZYMES Most recent to [Reference Range]: Total CK [12-191 58 unit/L unit/L] (02/25/18 1:36 PM) Troponin-I 0.03 ng/mL [0.00-0.40 ng/mL] (02/25/18 1:36 PM) BNP [<=100 pg/mL] 92 pg/mL (02/25/18 5:30 PM) LIPIDS Most recent to [Reference Range]: CHD Risk [3.90-5.80] 2.94 *LOW* (02/26/18 3:29 AM) Chol [<=199 mg/dL] 97 mg/dL (02/26/18 3:29 AM) Trig [<=149 mg/dL] 144 mg/dL (02/26/18 3:29 AM) HDL [>=61 mg/dL] 33 mg/dL *LOW* (02/26/18 3:29 AM) LDL (Calculated) 35 mg/dL [<=99 mg/dL] (02/26/18 3:29 AM) VLDL 29 *NA* (02/26/18 3:29 AM) SPECIAL CHEMISTRY Most recent to [Reference Range]: Hgb A1C [<=5.6 %] 8.6 % *HI* (02/26/18 3:29 AM) TOXICOLOGY Most recent to [Reference Range]: Digoxin Lvl [0.8-2.0 0.9 ng/mL ng/mL] (02/26/18 3:29 AM) URINE AND STOOL Most recent to [Reference Range]: UA Turbidity [Clear] Clear (02/25/18 7:25 PM) UA Color [Yellow] Yellow *NA* (02/25/18 7:25 PM) UA pH [5.0-8.0] 5.0 (02/25/18 7:25 PM) UA Spec Grav 1.019 [<=1.030] (02/25/18 7:25 PM) UA Glucose [Negative Negative mg/dL mg/dL] *NA* (02/25/18 7:25 PM) UA Blood [Negative] Negative (02/25/18 7:25 PM) UA Ketones [Negative Negative mg/dL mg/dL] *NA* (02/25/18 7:25 PM) UA Protein [Negative Negative mg/dL mg/dL] (02/25/18 7:25 PM) UA Urobilinogen 2.0 mg/dL [0.1-1.0 mg/dL] *HI* (02/25/18 7:25 PM) UA Bili [Negative] Negative *NA* (02/25/18 7:25 PM) UA Leuk Est Negative [Negative] (02/25/18 7:25 PM) UA Nitrite Negative [Negative] (02/25/18 7:25 PM) UA WBC [0-5 /HPF] 1 /HPF (02/25/18 7:25 PM) UA RBC [0-2 /HPF] 1 /HPF (02/25/18 7:25 PM) UA Bacteria [None Occasional /HPF Seen /HPF] *NA* (02/25/18 7:25 PM) UA Sq Epi [Few /LPF] Occasional /LPF *NA* (02/25/18 7:25 PM) UA Hyal Cast [0-2 1 /LPF /LPF] (02/25/18 7:25 PM) HEMATOLOGY Most recent to 1 2 oldest [Reference Range]: WBC [3.7-10.4 K/CMM] 5.7 K/CMM 5.8 K/CMM (02/26/18 3:29 AM) (02/25/18 1:36 PM) RBC [4.20-5.40 4.09 M/CMM 4.25 M/CMM M/CMM] *LOW* (02/25/18 1:36 PM) (02/26/18 3:29 AM) Hgb [12.0-16.0 g/dL] 10.3 g/dL 10.5 g/dL *LOW* *LOW* (02/26/18 3:29 AM) (02/25/18 1:36 PM) Hct [36.0-48.0 %] 31.4 % 32.5 % *LOW* *LOW* (02/26/18 3:29 AM) (02/25/18 1:36 PM) MCV [80.0-98.0 fL] 76.7 fL 76.6 fL *LOW* *LOW* (02/26/18 3:29 AM) (02/25/18 1:36 PM) MCH [27.0-31.0 pg] 25.2 pg 24.7 pg *LOW* *LOW* (02/26/18 3:29 AM) (02/25/18 1:36 PM) MCHC [32.0-36.0 32.9 g/dL 32.3 g/dL g/dL] (02/26/18 3:29 AM) (02/25/18 1:36 PM) RDW [11.5-14.5 %] 16.6 % 17.0 % *HI* *HI* (02/26/18 3:29 AM) (02/25/18 1:36 PM) MPV [7.4-10.4 fL] 9.2 fL 8.9 fL (02/26/18 3:29 AM) (02/25/18 1:36 PM) Platelet [133-450 132 K/CMM 148 K/CMM K/CMM] *LOW* (02/25/18 1:36 PM) (02/26/18 3:29 AM) Segs [45.0-75.0 %] 60.1 % 76.6 % (02/26/18 3:29 AM) *HI* (02/25/18 1:36 PM) Lymphocytes 29.8 % 16.2 % [20.0-40.0 %] (02/26/18 3:29 AM) *LOW* (02/25/18 1:36 PM) Monocytes [2.0-12.0 6.2 % 5.5 % %] (02/26/18 3:29 AM) (02/25/18 1:36 PM) Eosinophils [0.0-4.0 3.3 % 1.1 % %] (02/26/18 3:29 AM) (02/25/18 1:36 PM) Basophils [0.0-1.0 0.6 % 0.6 % %] (02/26/18 3:29 AM) (02/25/18 1:36 PM) Neutrophils # 3.4 K/CMM 4.5 K/CMM [1.5-8.1 K/CMM] (02/26/18 3:29 AM) (02/25/18 1:36 PM) Lymphocytes # 1.7 K/CMM 0.9 K/CMM [1.0-5.5 K/CMM] (02/26/18 3:29 AM) *LOW* (02/25/18 1:36 PM) Monocytes # [0.0-0.8 0.4 K/CMM 0.3 K/CMM K/CMM] (02/26/18 3:29 AM) (02/25/18 1:36 PM) Eosinophils # 0.2 K/CMM 0.1 K/CMM [0.0-0.5 K/CMM] (02/26/18 3:29 AM) (02/25/18 1:36 PM) Microcyte [None 1+ 1+ Seen] *ABN* *ABN* (02/26/18 3:29 AM) (02/25/18 1:36 PM) PT [12.0-14.7 23.6 seconds 23.3 seconds seconds] *HI* *HI* (02/26/18 6:40 AM) (02/25/18 1:36 PM) INR [0.85-1.17] 2.08 2.05 *HI* *HI* (02/26/18 6:40 AM) (02/25/18 1:36 PM) PTT [22.9-35.8 44.1 seconds seconds] *HI* (02/25/18 1:36 PM) Immunizations Given and Recorded Vaccine Date Status [...] no reaction 2Result Comment: fluzone high dose [[id number]]. Migrated from OBS ; Data migrated from [employer] on 06/28/2015. 3Result Comment: fluzone (>3 yrs.) [[id number]]. 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 Alcohol Never Smoking Status Never smoker; Exposure to T obacco Smoke None; Cigarette Smoking Last 365 Days Yes; Reg Smoking Cessation Cost Analyst ing No entered on: 09/03/18 Assessment and Plan Extracted from: Title: Discharge Summary * Author: Jannet Enamorado Date: 02/26/18 Discharge Information Disposition home Condition stable Medications: See med reconciliation form Diet: Heart healthy Discharge Plan In the event of any worsening symptom patient was to come back to the ED for further evaluation Discharge summary to greater than 35-minute Extracted from: Title: Clinical Document Author: Eugenie Rojas MD Date: Cardiology Consult Note [facility] Chief Complaint-? CVA HPI-This [...] usually followed closely with her PCP Dr. Dee. She also has known moderate aortic stenosis [...] okay. Her daughter was actually leaving for [place] on Saturday. The family reports to me [...] warfarin 5 mg PO Q5PM Allergies: NKDA VitalsTmp(F)[id number] 02/26 08:54----62 02/26 07:[id number]--- 02/26 03:[id number]--- 02/25 23:[id number]--- 02/25 19:[id number]--- 24 Hr Tmax: 99.1F (37.28c) at 02/25 12:5 9Vital Signs are the last 5 in the [...] 3 Labs (Last four charted values) WBC 5.7(FEB 26)5.8(FEB 25) Hgb L 10.3(FEB 26)L 10.5(FEB 25) Hct L 31.4(FEB 26)L 32.5(FEB 25) Plt L 132(FEB 26)148(FEB 25) Na 143(FEB 26)141(FEB 25) K 3.9(FEB 26)4.5(FEB 25) CO2 27(FEB 26)25(FEB 25) Cl 103(FEB 26)102(FEB 25) Cr 0.93(FEB 26)1.05(FEB 25) BUN H 28(FEB 26)H 24(FEB 25) Glucose Random H 182(FEB 26)H 167(FEB 25) Mg 2.1(FEB 26) Ca 8.9(FEB 26)8.8(FEB 25) PT H 23.6(FEB 26)H 23.3(FEB 25) INR H 2.08(FEB 26)H 2.05(FEB 25) PTT H 44.1(FEB 25) Troponin 0.03(FEB 25) Total CK 58(FEB 25) Impression 72-year-old female who presented with [...] device function and his outpatient tests Extracted from: Title: General Admission H&P * Author: Jannet Enamorado MD Date: 02/25/18 Impression and Plan 1. Facial numbness and weakness rule ou t TIA neurology consulted, CT brain: Negative, carotid ultrasound: Unable to obtain MRI as the patient has a pacer, aspirin, statin 2. Type 2 diabetes insulin sliding scale, Accu-Cheks, A1c 3. Hypertension stable, continue same home medications 4. History of A. fib rate controlled, warfarin 5. Prophylaxis warfarin 6. Fluid electrolytes nutrients no IV fluids, heart healthy diet 7. PT/OT eval and treat 8. Disposition observation, neurology consulted
--- OUTSIDE RECORDS SUMMARY | 2019-12-25 20:49 | XMS REPORT | Summary of Care ---
Author Author [facility] Organization [facility] Address Unknown Phone Unavailable Encounter CONTRERAS Gray(LAN) [id number] Date(s): 04/10/19 - 04/10/19 [facility] [address] [employer] provided by [employer] [facility] [employer] [place] [address]- Discharge Disposition: Home or Self Care Attending Physician: Anthony Coelho MD Referring Physician: Anthony Coelho MD Vital Signs Most recent to 1 2 oldest [Reference Range]: Height 162.56 cm (04/10/19 11:33 AM) Blood Pressure 113/60 mmHg 129/67 mmHg [90-140/60-90 mmHg] (04/10/19 1:45 PM) (04/10/19 1:25 PM) Respiratory Rate 15 BRMIN 16 BRMIN [14-20 BRMIN] (04/10/19 1:45 PM) (04/10/19 1:25 PM) Peripheral Pulse 63 bpm 60 bpm Rate [60-100 bpm] (04/10/19 1:45 PM) (04/10/19 1:25 PM) Weight 61.364 kg (04/10/19 11:33 AM) Body Mass Index 23.22 m2 (04/10/19 11:33 AM) Problem List Condition Effective Dates Status [...] 01/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)1 1 Hyperlipemia, Active mixed(Confirmed) Rlehosghvjpgwn93 03/09/14 Active Osteoarthritis(Confi Active rmed) Postmenopausal 09/01/13 Active state13 Screening - health 08/17/14 Resolved check14, 15 Type 2 diabetes 05/27/59 Active mellitus(Confirmed)1 6 Urinary 03/03/13 Active zcucundiazvi87 Urinary tract 04/28/14 Resolved infectious hjuyvhu57 On warfarin Active therapy(Confirmed) 1Data migrated from [...] Substance Reaction Severity Status NKFA Active Medications ferrous sulfate 325 mg oral enteric coated tablet 325 mg = 1 tab, PO, Daily, # 60 tab, 3 Refill(s) Start Date: 04/10/19 Status: Ordered Results Most recent to 1 oldest [Reference Range]: eGFR 64 mL/min/1.73m2 1 *NA* (04/10/19 1:27 PM) POC Creatinine 0.9 mg/dL [0.5-1.4 mg/dL] (04/10/19 1:27 PM) 1Result Comment: The eGFR is calculated [...] no reaction 2Result Comment: fluzone high dose [[id number]]. Migrated from OBS ; Data migrated from [employer] on 06/28/2015. 3Result Comment: fluzone (>3 yrs.) [[id number]]. Migrated from OBS ; Data migrated from [employer] on 06/28/2015. 4Result Comment: pneumovax 23 [cvx33]. Migrated from OBS VIS: Pneumovax 23: 03/01/09 ; Data migrated from [employer] on 06/28/2015. Procedures Procedure Date Related Diagnosis [...] Last 365 Days Yes; Reg Smoking Cessation Stock Analyst ing No entered on: 12/10/18 Assessment and Plan No data available for this section
--- OUTSIDE RECORDS SUMMARY | 2019-12-25 20:49 | XMS REPORT | Summary of Care ---
Author Author [facility] Primary Care [facility] Organization [facility] Address Unknown Phone Unavailable Encounter HQ Isaac(FIN) [id number] Date(s): 08/13/18 - 08/14/18 [facility] [address] [address]- Vital Signs No data available for this [...] 01/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)1 1 Hyperlipemia, Active mixed(Confirmed) Fddrpclvhegosq87 03/09/14 Active Osteoarthritis(Confi Active rmed) Postmenopausal 09/01/13 Active state13 Screening - health 08/17/14 Resolved check14, 15 Type 2 diabetes 05/27/59 Active mellitus(Confirmed)1 6 Urinary 03/03/13 Active riyvhoczwaib23 Urinary tract 04/28/14 Resolved infectious furwyvx09 On warfarin Active therapy(Confirmed) 1Data migrated from [...] Daily, # 90 tab, 0 Refill(s), Pharmacy: [facility]/pharmacy #[id number] Start Date: 08/13/18 Status: Ordered Results No data available for [...] no reaction 2Result Comment: fluzone high dose [[id number]]. Migrated from OBS ; Data migrated from [employer] on 06/28/2015. 3Result Comment: fluzone (>3 yrs.) [[id number]]. Migrated from OBS ; Data migrated from [employer] on 06/28/2015. 4Result Comment: pneumovax 23 [cvx33]. Migrated from OBS VIS: Pneumovax 23: 03/01/09 ; Data migrated from [employer] on 06/28/2015. Procedures Procedure Date Related Diagnosis [...] Last 365 Days Yes; Reg Smoking Cessation Regional Engagement Consultant ing No entered on: 05/02/18 Assessment and Plan No data available for this section
--- OUTSIDE RECORDS SUMMARY | 2019-12-25 20:49 | XMS REPORT | CCD ---
Author Author [facility] Address Unknown Phone Unavailable Care Team Providers Care Neurology Specialist Name Role Phone Qamar Anderson CP Unavailable Allergies, Adverse Reactions, Alerts Substance Reaction Status NKDA Active Medications Medication Instructions Start Date End Date Status influenza virus 0.5 ml, Route: IM, Drug Form: INJ, 07/01/2008 07/09/2008 Completed vaccine, inactivated ONCALL, Start date: 9 23:18:06, Stop date: 07/31/08 23:03:06 Immunizations Vaccine Date Status influenza virus vaccine, inactivated 07/09/2008 A [facility] (Verified) Results URINALYSIS Most recent to oldest [Reference Range]: 1 UA Turbidity [Clear] Clear (10/03/2012 20:34:00) UA Color [Yellow] Yellow *NA* (10/03/2012 20:34:00) UA pH [5.0-8.0] 5.5 (10/03/2012 20:34:00) UA Spec Grav [<=1.030] 1.015 (10/03/2012 20:34:00) UA Glucose [Negative mg/dL] Negative mg/dL (10/03/2012 20:34:00) UA Blood [Negative] Negative (10/03/2012 20:34:00) UA Ketones [Negative mg/dL] Negative mg/dL *NA* (10/03/2012 20:34:00) UA Protein [Negative mg/dL] Negative mg/dL (10/03/2012 20:34:00) UA Urobilinogen [0.1-1.0 EU/dL] 0.2 EU/dL (10/03/2012 20:34:00) UA Bili [Negative] Negative *NA* (10/03/2012 20:34:00) UA Leuk Est [Negative] Negative (10/03/2012 20:34:00) UA Nitrite [Negative] Negative (10/03/2012:34:) UA WBC [0-5 /HPF] 0-2 /HPF (10/03/2012:34:) UA RBC [0-2] None Seen (10/03/2012:34:00) UA Bacteria [None Seen] None Seen (10/03/2012:34:) UA Sq Epi [Few /LPF] Few /LPF (10/03/2012::) UA Mucus [None Seen] None Seen (10/03/2012::) CHEMISTRY Most recent to oldest [Reference Range]: 1 Sodium Lvl [135-145 mEq/L] 141 mEq/L (10/03/2012:34:) Potassium Lvl [3.5-5.1 mEq/L] 4.0 mEq/L (10/03/2012:34:) Chloride Lvl [95-109 mEq/L] 104 mEq/L (10/03/2012::) CO2 [24-32 mEq/L] 29 mEq/L (10/03/2012:) AGAP [10.0-20.0 mEq/L] 12.0 mEq/L (10/03/2012:34:) Creatinine Lvl [0.5-1.4 mg/dL] 0.9 mg/dL (10/03/201234:) eGFR 66 mL/min/1.73m2 1 *NA* (10/03/2012:34:) BUN [7-22 mg/dL] 27 mg/dL *HI* (10/03/2012:34:) B/C Ratio [6-25] 30 *HI* (10/03/2012:34:) Glucose Lvl [70-99 mg/dL] 134 mg/dL 2 *HI* (10/03/2012:) Total Protein [6.4-8.4 g/dL] 8.3 g/dL (10/03/2012:34:00) Albumin Lvl [3.5-5.0 g/dL] 4.1 g/dL (10/03/2012:34:00) Globulin [2.0-4.0 g/dL] 4.2 g/dL *HI* (10/03/2012::) A/G Ratio [0.7-1.6] 1.0 (10/03/2012) Calcium Lvl [8.5-10.5 mg/dL] 9.1 mg/dL (10/03/2012::) ALT [0-65 unit/L] 38 unit/L (10/03/2012) AST [0-37 unit/L] 30 unit/L (10/03/2012:) Alk Phos [39-136 unit/L] 110 unit/L (10/03/2012::) Bili Total [0.2-1.3 mg/dL] 0.5 mg/dL (10/03/2012:) 1Result Comment: The eGFR is calculated using [...] be mul tiplied by the estimated BMI. 2Interpretive Data: Adult reference range values reflect the clinical guidelines of the [place] [employer]. HEMATOLOGY Most recent to oldest [Reference Range]: 1 WBC [3.7-10.4 K/CMM] 6.9 K/CMM (10/03/2012::) RBC [4.20-5.40 M/CMM] 4.27 M/CMM (10/03/2012::) Hgb [12.0-16.0 g/dL] 10.6 g/dL *LOW* (10/03/2012) Hct [36.0-48.0 %] 33.4 % *LOW* (10/03/2012) MCV [81.0-99.0 fL] 78.3 fL *LOW* (10/03/2012) MCH [27.0-31.0 pg] 24.9 pg *LOW* (10/03/2012) MCHC [32.0-36.0 g/dL] 31.8 g/dL *LOW* (10/03/2012) RDW [11.5-14.5 %] 18.6 % *HI* (10/03/2012) Platelet [133-450 K/CMM] 198 K/CMM (10/03/2012) MPV [7.4-10.4 fL] 8.5 fL (10/03/2012) Segs [45.0-75.0 %] 62.9 % (10/03/2012) Lymphocytes [20.0-40.0 %] 28.9 % (10/03/2012) Monocytes [2.0-12.0 %] 5.5 % (10/03/2012) Eosinophils [0.0-4.0 %] 2.2 % (10/03/2012) Basophils [0.0-1.0 %] 0.5 % (10/03/2012:) Segs-Bands # [1.5-8.1 K/CMM] 4.3 K/CMM (10/03/2012) Lymphocytes # [1.0-5.5 K/CMM] 2.0 K/CMM (10/03/2012) Monocytes # [0.0-0.8 K/CMM] 0.4 K/CMM (10/03/2012) Eosinophils # [0.0-0.5 K/CMM] 0.1 K/CMM (10/03/2012::) Basophils # [0.0-0.2 K/CMM] 0.0 K/CMM (10/03/2012 20:31:00) PT [12.0-14.7 seconds] 14.2 seconds (10/03/2012 20:16:00) INR [0.85-1.17] 1.08 3 (10/03/2012 20:16:00) 3Interpretive Data: RECOMMENDED RANGES FOR PROTIME INR: 2.0-3.0 for most medical and surgical thromboembolic states. 2.5-3.5 for artificial heart valves and recurrent embolism. INR SHOULD BE USED ONLY FOR PATIENTS ON STABLE ANTICOAGULANT THERAPY.
--- OUTSIDE RECORDS SUMMARY | 2019-12-25 20:49 | XMS REPORT | Summary of Care ---
Author Author [facility] Primary Care [facility] Organization [facility] Address Unknown Phone Unavailable Encounter CONTRERAS Grya(FIN) [id number] Date(s): 07/03/18 - 07/03/18 [facility] [address] [phone] Attending Physician: Mohini Dee MD Vital Signs [...] 01/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)1 1 Hyperlipemia, Active mixed(Confirmed) Xxajzxuieutunk08 03/09/14 Active Osteoarthritis(Confi Active rmed) Postmenopausal 09/01/13 Active state13 Screening - health 08/17/14 Resolved check14, 15 Type 2 diabetes 05/27/59 Active mellitus(Confirmed)1 6 Urinary 03/03/13 Active buqqfbhzwprq37 Urinary tract 04/28/14 Resolved infectious vihspdj35 On warfarin Active therapy(Confirmed) 1Data migrated from [employer] on 12/11/14. 2Data migrated from [employer] [...] no reaction 2Result Comment: fluzone high dose [iyb014]. Migrated from OBS ; Data migrated from [employer] on 06/28/2015. 3Result Comment: fluzone (>3 yrs.) [rzl860]. Migrated from OBS ; Data migrated from [employer] on 06/28/2015. 4Result Comment: pneumovax 23 [cvx33]. Migrated from OBS VIS: Pneumovax 23: 03/01/09 ; Data migrated from [employer] on 06/28/2015. Procedures Procedure Date Related Diagnosis Body Site Status Diabetic retinopathy screening1 02/08/17 Comple pita Mitral valve operation2 2011 Completed Cardiac pacemaker procedure Completed Cholecystectomy Completed Operation on uterus3 Completed 1Barcacel, OD 2replacement at [facility] 3tumor removed Social History Social History Type Response Alcohol Never Substance Abuse Use: None. Smoking Status Never smoker; Exposure to T obacco Smoke None; Cigarette Smoking Last 365 Days Yes; Reg Smoking Cessation Electric Blanket Packer ing No entered on: 12/10/18 Assessment and Plan No data available for this section
--- OUTSIDE RECORDS SUMMARY | 2019-12-25 20:49 | XMS REPORT | Summary of Care ---
Author Author [facility] Primary Care [facility] Organization [facility] Address Unknown Phone Unavailable Encounter HQ Isaac(FIN) [id number] Date(s): 07/03/18 - 07/03/18 [facility] [address] [facility], [address] [place], [place] [address]- [phone] Attending Physician: Mohini Dee MD Vital Signs [...] 01/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)1 1 Hyperlipemia, Active mixed(Confirmed) Oulcloilzkgmyo13 03/09/14 Active Osteoarthritis(Confi Active rmed) Postmenopausal 09/01/13 Active state13 Screening - health 08/17/14 Resolved check14, 15 Type 2 diabetes 05/27/59 Active mellitus(Confirmed)1 6 Urinary 03/03/13 Active pyjwbqqdkage89 Urinary tract 04/28/14 Resolved infectious dbrceja14 On warfarin Active therapy(Confirmed) 1Data migrated from [...] no reaction 2Result Comment: fluzone high dose [gpf600]. Migrated from OBS ; Data migrated from [employer] on 06/28/2015. 3Result Comment: fluzone (>3 yrs.) [[id number]]. Migrated from OBS ; Data migrated from [employer] on 06/28/2015. 4Result Comment: pneumovax 23 [cvx33]. Migrated from OBS VIS: Pneumovax 23: 03/01/09 ; Data migrated from [employer] on 06/28/2015. Procedures Procedure Date Related Diagnosis [...] Last 365 Days Yes; Reg Smoking Cessation Dispatch Clerk ing No entered on: 05/02/18 Assessment and Plan No data available for this section
--- OUTSIDE RECORDS SUMMARY | 2019-12-25 20:49 | XMS REPORT | Summary of Care ---
Author Author [facility] enter Organization [facility] enter Address Unknown Phone Unavailable Encounter HQ Isaac(FIN) [id number] Date(s): 12/17/19 - 12/18/[address] [facility] [address] [place] [address]- Vital Signs No data available for this [...] 01/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)1 1 Hyperlipemia, Active mixed(Confirmed) Hhagcplnskfnhk17 03/09/14 Active Osteoarthritis(Confi Active rmed) Postmenopausal 09/01/13 Active state13 Screening - health 08/17/14 Resolved check14, 15 Type 2 diabetes 05/27/59 Active mellitus(Confirmed)1 6 Urinary 03/03/13 Active waszwbqksrlx18 Urinary tract 04/28/14 Resolved infectious eivyrdg46 On warfarin Active therapy(Confirmed) 1Data migrated from [employer] on 12/11/14. 2Data migrated from [employer] [...] no reaction 2Result Comment: fluzone high dose [chi002]. Migrated from OBS ; Data migrated from [employer] on 06/28/2015. 3Result Comment: fluzone (>3 yrs.) [xqo465]. Migrated from OBS ; Data migrated from [employer] on 06/28/2015. 4Result Comment: pneumovax 23 [cvx33]. Migrated from OBS VIS: Pneumovax 23: 03/01/09 ; Data migrated from [employer] on 06/28/2015. Procedures Procedure Date Related Diagnosis Body Site Status Diabetic retinopathy screening1 02/08/17 Comple pita Mitral valve operation2 2011 Completed Cardiac pacemaker procedure Completed Cholecystectomy Completed Operation on uterus3 Completed 1Barcacel, OD 2replacement at [facility] 3tumor removed Social History Social [...]
--- OUTSIDE RECORDS SUMMARY | 2019-12-25 20:49 | XMS REPORT | Summary of Care ---
Author Author [facility] Primary Care [facility] Organization [facility] Address Unknown Phone Unavailable Encounter CONTRERAS Gray(FIN) [id number] Date(s): 07/01/18 - 07/02/18 [facility] [address] [address]- Vital Signs No data available for this [...] 01/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)1 1 Hyperlipemia, Active mixed(Confirmed) Gtywslxquliwll22 03/09/14 Active Osteoarthritis(Confi Active rmed) Postmenopausal 09/01/13 Active state13 Screening - health 08/17/14 Resolved check14, 15 Type 2 diabetes 05/27/59 Active mellitus(Confirmed)1 6 Urinary 03/03/13 Active rteagbipqewr77 Urinary tract 04/28/14 Resolved infectious vogkyxj62 On warfarin Active therapy(Confirmed) 1Data migrated from [employer] on 12/11/14. 2Data migrated from [employer] [...] Substance Reaction Severity Status NKFA Active Medications metFORMIN 1000 mg oral tablet 1,000 mg = 1 tab, PO, BID, # 180 tab, 1 Refill(s), Pharmacy: [facility]/pharmacy #[id number] Start Date: 07/02/18 Status: Ordered metFORMIN 1000 mg oral tablet 1,000 mg = 1 tab, PO, BID, # 180 tab, 1 Refill(s), Pharmacy: [facility]/pharmacy #[id number] Start Date: 07/01/18 Stop Date: 07/01/18 Status: Completed Results No [...] Date Status Refusal Reason pneumococcal 13-valent vaccine 10/3/18 Not Given Patient Refuses 1Result Comment: Patient waited 15 min with no reaction 2Result Comment: fluzone high dose [[id number]]. Migrated from OBS ; Data migrated from [employer] on 06/28/2015. 3Result Comment: fluzone (>3 yrs.) [bnb255]. Migrated from OBS ; Data migrated from [employer] on 06/28/2015. 4Result Comment: pneumovax 23 [cvx33]. Migrated from OBS VIS: Pneumovax 23: 03/01/09 ; Data migrated from [employer] on 06/28/2015. Procedures Procedure Date Related Diagnosis [...] Last 365 Days Yes; Reg Smoking Cessation Loop Tender ing No entered on: 12/10/18 Assessment and Plan No data available for this section
--- OUTSIDE RECORDS SUMMARY | 2019-12-25 20:49 | XMS REPORT | Summary of Care ---
Author Author [facility] Primary Care [facility] Organization [facility] Address Unknown Phone Unavailable Encounter HQ Isaac(FIN) [id number] Date(s): 07/01/18 - 07/02/18 [facility] [address] [facility], [address] [place], [place] [address]- [phone] Vital Signs No data available for this [...] 01/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)1 1 Hyperlipemia, Active mixed(Confirmed) Fjpleasqvxmuhs55 03/09/14 Active Osteoarthritis(Confi Active rmed) Postmenopausal 09/01/13 Active state13 Screening - health 08/17/14 Resolved check14, 15 Type 2 diabetes 05/27/59 Active mellitus(Confirmed)1 6 Urinary 03/03/13 Active funxhzhpofid13 Urinary tract 04/28/14 Resolved infectious jelhyjl06 On warfarin Active therapy(Confirmed) 1Data migrated from [...] BID, # 180 tab, 1 Refill(s), Pharmacy: [facility]/pharmacy #[id number] Start Date: 07/01/18 Stop Date: 07/01/18 Status: Completed metFORMIN 1000 mg oral tablet 1,000 mg = 1 tab, PO, BID, # 180 tab, 1 Refill(s), Pharmacy: [facility]/pharmacy #[id number] Start Date: 07/02/18 Status: Ordered Results No data available for [...] no reaction 2Result Comment: fluzone high dose [gmy265]. Migrated from OBS ; Data migrated from [employer] on 06/28/2015. 3Result Comment: fluzone (>3 yrs.) [[id number]]. Migrated from OBS ; Data migrated from [employer] on 06/28/2015. 4Result Comment: pneumovax 23 [cvx33]. Migrated from OBS VIS: Pneumovax 23: 03/01/09 ; Data migrated from [employer] on 06/28/2015. Procedures Procedure Date Related Diagnosis Body Site Status Diabetic retinopathy screening1 02/08/17 Comple pita Mitral valve operation2 2011 Completed Cardiac pacemaker procedure Completed Cholecystectomy Completed Operation on uterus3 Completed 1Barcacel, OD 2replacement at [facility] 3tumor removed Social History Social History Type Response Substance Abuse Use: None. Alcohol Never Smoking Status Never smoker; Exposure to T obacco Smoke None; Cigarette Smoking Last 365 Days Yes; Reg Smoking Cessation Health Care Analyst ing No entered on: 05/02/18 Assessment and Plan No data available for this section
--- OUTSIDE RECORDS SUMMARY | 2019-12-25 20:49 | XMS REPORT | Summary of Care ---
Author Author [facility] Organization [facility] Address Unknown Phone Unavailable Encounter CONTRERAS Gray(LAN) [id number] Date(s): 07/06/19 - 07/07/19 [facility] [address] [place] [address]- Discharge Disposition: Home or Self Care Attending Physician: Dave Foster MD Admitting Physician: Dave Foster MD Vital Signs 1 2 3 Most recent to oldest [Reference Range]: 160.02 cm (07/07/19 2:50 AM) 160.02 cm (07/06/19 7:38 PM) Height 60.909 kg (07/07/19 6:57 AM) Current Weight 97.6 DegF (07/07/19 10:53 AM) 97.7 DegF (07/07/19 8:17 AM) 98.0 DegF (07/07/19 2:20 AM) Temperature Oral [96.4-99.1 DegF] 155/69 mmHg *HI* (07/07/19 10:53 AM) 157/85 mmHg *HI* (07/07/19 9:19 AM) 132/76 mmHg (07/07/19 8:17 AM) Blood Pressure [90-140/60-90 mmHg] 18 BRMIN (07/07/19 10:53 AM) 16 BRMIN (07/07/19 9:19 AM) 16 BRMIN (07/07/19 8:17 AM) Respiratory Rate [14-20 BRMIN] 58 bpm *LOW* (07/07/19 10:53 AM) 64 bpm (07/07/19 9:19 AM) 59 bpm *LOW* (07/07/19 8:17 AM) Peripheral Pulse Rate [60-100 bpm] 60.909 kg (07/07/19 2:50 AM) 60.909 kg (07/06/19 7:38 PM) Weight 23.79 m2 (07/07/19 4:07 AM) 23.79 m2 (07/07/19 2:50 AM) 23.79 m2 (07/06/19 7:38 PM) Body Mass Index Problem List Condition [...] 01/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)1 1 Hyperlipemia, Active mixed(Confirmed) [id number] 03/09/14 Active Osteoarthritis(Confi Active rmed) Postmenopausal 09/01/13 Active state13 Screening - health 08/17/14 Resolved check14, 15 Type 2 diabetes 05/27/59 Active mellitus(Confirmed)1 6 Urinary 03/03/13 Active [id number] Urinary tract 04/28/14 Resolved infectious On warfarin [...] Substance Reaction Severity Status NKFA Active Medications aspirin 81 mg tablet, enteric coated 81 mg, 1 tab, Route: PO, Drug form: ECTAB, Q24H, Dosing Weight 60.909, kg, Start date: 07/07/19 5:00:00 GEOSCIENCE TECHNICIAN, Duration: 30 day, Stop date: 08/05/19 5:00:00 CDT, 0 Notes: Do not crush or chew.(Same As: Ecotrin) Start Date: 07/07/19 Stop Date: 07/07/19 Status: Discontinued atorvastatin 10 mg, 1 tab, Route: PO, Drug form: TAB, Daily, Dosing Weight 60.909, kg, Start date: 07/07/19 9:00:00 GEOSCIENCE TECHNICIAN, Duration: 30 day, Stop date: 08/05/19 9:00:00 CDT, 0 Notes: (Same As: Lipitor) Start Date: 07/07/19 Stop Date: 07/07/19 Status: Discontinued calcium-vitamin D 600 mg-400 intl units oral tablet 1 tab, Route: PO, Drug Form: TAB, Dosing Weight 60.909, kg, BID, Start date: 04/15 9:00:00 GEOSCIENCE TECHNICIAN, Duration: 30 day, Stop date: 08/05/19 17:00:00 CDT, 0 Notes: (Same As: Michael-D, OsCal-D, Oyster Calcium) Start Date: 07/07/19 Stop Date: 07/07/19 Status: Discontinued Dextrose 50% Syringe (D50W) 12.5 gm, 25 mL, Route: IVP, Drug Form: INJ, Dosing Weight 60.909, kg, PRN, PRN B lood Glucose Results, Start date: 07/07/19 4:11:00 GEOSCIENCE TECHNICIAN, Duration: 30 day, Stop d ate: 08/06/19 5:10:00 CDT, 0 Start Date: 07/07/19 Stop Date: 07/07/19 Status: Discontinued Dextrose 50% Syringe (D50W) 25 gm, 50 mL, Route: IVP, Drug Form: INJ, Dosing Weight 60.909, kg, PRN, PRN Blo od Glucose Results, Start date: 07/07/19 4:11:00 GEOSCIENCE TECHNICIAN, Duration: 30 day, Stop megan e: 08/06/19 5:10:00 CDT, 0 Start Date: 07/07/19 Stop Date: 07/07/19 Status: Discontinued digoxin 125 mcg (0.125 mg) oral tablet 125 microgram, 1 tab, Route: PO, Drug form: TAB, Daily, Dosing Weight 60.909, kg , Start date: 07/07/19 9:00:00 GEOSCIENCE TECHNICIAN, Duration: 30 day, Stop date: 08/05/19 9:00:0 0 CDT, 0 Notes: Take on an Empty Stomach (Same as: Lanoxin) Start Date: 07/07/19 Stop Date: 07/07/19 Status: Discontinued escitalopram 10 mg, 1 tab, Route: PO, Drug form: TAB, Daily, Dosing Weight 60.909, kg, Start date: 07/07/19 9:00:00 GEOSCIENCE TECHNICIAN, Duration: 30 day, Stop date: 08/05/19 9:00:00 CDT, 0 Notes: (Same as: Lexapro) Start Date: 07/07/19 Stop Date: 07/07/19 Status: Discontinued ferrous sulfate 325 mg, 1 tab, Route: PO, Drug form: ECTAB, Daily, Dosing Weight 60.909, kg, Sta rt date: 07/07/19 9:00:00 GEOSCIENCE TECHNICIAN, Duration: 30 day, Stop date: 08/05/19 9:00:00 CDT , 0 Notes: Give with food. "Do Not Crush" Start Date: 07/07/19 Stop Date: 07/07/19 Status: Discontinued furosemide 40 mg, Route: IVP, Drug form: INJ, Daily, Dosing Weight 60.909, kg, Start date: 07/08/19 9:00:00 GEOSCIENCE TECHNICIAN, Duration: 30 day, Stop date: 08/06/19 9:00:00 CDT Start Date: 07/08/19 Stop Date: 07/07/19 Status: Canceled furosemide 40 mg, 4 mL, Route: IVP, Drug form: INJ, BID, Dosing Weight 60.909, kg, Start da te: 07/07/19 17:00:00 GEOSCIENCE TECHNICIAN, Duration: 30 day, Stop date: 08/06/19 9:00:00 CDT, 0 Notes: (Same as: Lasix) MEDICATION WASTE Product Size: 40 mgProduct Was pita: ___ mg Start Date: 07/07/19 Stop Date: 07/07/19 Status: Canceled glucagon 1 mg, Route: IM, Drug form: PDR/INJ, PRN, Dosing Weight 60.909, kg, PRN Blood Gl ucose Results, Start date: 07/07/19 4:11:00 GEOSCIENCE TECHNICIAN, Duration: 30 day, Stop date: 5:10:00 CDT, 0 Start Date: 07/07/19 Stop Date: 07/07/19 Status: Discontinued insulin lispro 3 unit, 0.03 mL, Route: SUB-Q, Drug form: SOLN, TID-Before Meals, Dosing Weight 60.909, kg, PRN Blood Glucose Results, Start date: 07/07/19 4:11:00 GEOSCIENCE TECHNICIAN, Duratio n: 30 day, Stop date: 08/06/19 4:10:00 CDT, 0 Notes: (Same as: Humalog) Roll in palms of hands gently; Do not shake vigorously . WASTE: F/P - Black; E - Municipal Trash BinStable for 28 days at room tempera ture.Expires in days from Date Start Date: 07/07/19 Stop Date: 07/07/19 Status: Discontinued insulin lispro 6 unit, 0.06 mL, Route: SUB-Q, Drug form: SOLN, TID-Before Meals, Dosing Weight 60.909, kg, PRN Blood Glucose Results, Start date: 07/07/19 4:11:00 GEOSCIENCE TECHNICIAN, Duratio n: 30 day, Stop date: 08/06/19 4:10:00 CDT, 0 Notes: (Same as: Humalog) Roll in palms of hands gently; Do not shake vigorously . WASTE: F/P - Black; E - Municipal Trash BinStable for 28 days at room [facility].Expires in days from Date Start Date: 07/07/19 Stop Date: 07/07/19 Status: Discontinued insulin lispro 9 unit, 0.09 mL, Route: SUB-Q, Drug form: SOLN, TID-Before Meals, Dosing Weight 60.909, kg, PRN Blood Glucose Results, Start date: 07/07/19 4:11:00 GEOSCIENCE TECHNICIAN, Duratio n: 30 day, Stop date: 08/06/19 4:10:00 CDT, 0 Notes: (Same as: Humalog) Roll in palms of hands gently; Do not shake vigorously . WASTE: F/P - Black; E - Municipal Trash BinStable for 28 days at room [facility].Expires in days from Date Start Date: 07/07/19 Stop Date: 07/07/19 Status: Discontinued insulin lispro 12 unit, 0.12 mL, Route: SUB-Q, Drug form: SOLN, TID-Before Meals, Dosing Weight 60.909, kg, PRN Blood Glucose Results, Start date: 07/07/19 4:11:00 GEOSCIENCE TECHNICIAN, Durati on: 30 day, Stop date: 08/06/19 4:10:00 CDT, 0 Notes: (Same as: Humalog) Roll in palms of hands gently; Do not shake vigorously . WASTE: F/P - Black; E - Municipal Trash BinStable for 28 days at room [facility].Expires in days from Date Start Date: 07/07/19 Stop Date: 07/07/19 Status: Discontinued insulin lispro 15 unit, 0.15 mL, Route: SUB-Q, Drug form: SOLN, TID-Before Meals, Dosing Weight 60.909, kg, PRN Blood Glucose Results, Start date: 07/07/19 4:11:00 GEOSCIENCE TECHNICIAN, Durati on: 30 day, Stop date: 08/06/19 4:10:00 CDT, 0 Notes: (Same as: Humalog) Roll in palms of hands gently; Do not shake vigorously . WASTE: F/P - Black; E - Municipal Trash BinStable for 28 days at room [facility].Expires in days from Date Start Date: 07/07/19 Stop Date: 07/07/19 Status: Discontinued insulin lispro 1 unit, 0.01 mL, Route: SUB-Q, Drug form: SOLN, Bedtime, Dosing Weight 60.909, k g, PRN Blood Glucose Results, Start date: 07/07/19 4:11:00 GEOSCIENCE TECHNICIAN, Duration: 30 day , Stop date: 08/06/19 4:10:00 CDT, 0 Notes: (Same as: Humalog) Roll in palms of hands gently; Do not shake vigorously . WASTE: F/P - Black; E - Municipal Trash BinStable for [facility] days at [facility].Expires in days from Date Start Date: 07/07/19 Stop Date: 07/07/19 Status: Discontinued insulin lispro 2 unit, 0.02 mL, Route: SUB-Q, Drug form: SOLN, Bedtime, Dosing Weight 60.909, k g, PRN Blood Glucose Results, Start date: 07/07/19 4:11:00 GEOSCIENCE TECHNICIAN, Duration: 30 day , Stop date: 08/06/19 4:10:00 CDT, 0 Notes: (Same as: Humalog) Roll in palms of hands gently; Do not shake vigorously . WASTE: F/P - Black; E - Municipal Trash BinStable for 28 days at room [facility].Expires in days from Date Start Date: 07/07/19 Stop Date: 07/07/19 Status: Discontinued insulin lispro 3 unit, 0.03 mL, Route: SUB-Q, Drug form: SOLN, Bedtime, Dosing Weight 60.909, k g, PRN Blood Glucose Results, Start date: 07/07/19 4:11:00 GEOSCIENCE TECHNICIAN, Duration: 30 day , Stop date: 08/06/19 4:10:00 CDT, 0 Notes: (Same as: Humalog) Roll in palms of hands gently; Do not shake vigorously . WASTE: F/P - Black; E - Municipal Trash BinStable for 28 days at room [facility].Expires in days from Date Start Date: 07/07/19 Stop Date: 07/07/19 Status: Discontinued insulin lispro 4 unit, 0.04 mL, Route: SUB-Q, Drug form: SOLN, Bedtime, Dosing Weight 60.909, k g, PRN Blood Glucose Results, Start date: 07/07/19 4:11:00 GEOSCIENCE TECHNICIAN, Duration: 30 day , Stop date: 08/06/19 4:10:00 CDT, 0 Notes: (Same as: Humalog) Roll in palms of hands gently; Do not shake vigorously . WASTE: F/P - Black; E - Municipal Trash BinStable for 28 days at room [facility].Expires in days from Date Start Date: 07/07/19 Stop Date: 07/07/19 Status: Discontinued Lantus Solostar Pen 100 units/mL subcutaneous solution 30 unit, 0.3 mL, Route: SUB-Q, Drug form: SOLN, Bedtime, Dosing Weight 60.909, k g, Start date: 07/07/19 21:00:00 GEOSCIENCE TECHNICIAN, Duration: 30 day, Stop date: 08/05/19 21:0 0:00 CDT, 0 Notes: (Same as: Lantus)Do not hold insulin without contacting prescriberWASTE: F/P - Black; E - Municipal Trash Bin"single patient use only"Stable for 28 days at room temperature Expires in days from Date Start Date: 07/07/19 Stop Date: 07/07/19 Status: Canceled Lasix 40 mg, 4 mL, Route: IVP, Drug form: INJ, ONCE, Dosing Weight 60.909, kg, Start d ate: 07/07/19 4:11:00 GEOSCIENCE TECHNICIAN, Stop date: 07/07/19 4:11:00 GEOSCIENCE TECHNICIAN, 0 Notes: (Same as: Lasix) MEDICATION WASTE Product Size: 40 mgProduct Was pita: ___ mg Start Date: 07/07/19 Stop Date: 07/07/19 Status: Completed latanoprost ophthalmic 1 drp, Route: BOTH EYES, Bedtime, Drug form: SOLN, Start date: 07/07/19 21:00:00 GEOSCIENCE TECHNICIAN, Duration: 30 day, Stop date: 08/05/19 21:00:00 CDT, 0 Notes: Keep refrigerated. (Same as:Xalatan)Opened bottle may be stored at room t emperature for 6 weeks Start Date: 07/07/19 Stop Date: 07/07/19 Status: Canceled losartan 25 mg, 1 tab, Route: PO, Drug form: TAB, Daily, Dosing Weight 60.909, kg, Start date: 07/07/19 9:00:00 GEOSCIENCE TECHNICIAN, Duration: 30 day, Stop date: 08/05/19 9:00:00 CDT, 0 Notes: (Same as: Selena) Start Date: 07/07/19 Stop Date: 07/07/19 Status: Discontinued magnesium sulfate 2 gm, 50 mL, Route: IVPB, Drug form: INJ, ONCE, Dosing Weight 60.909, kg, Total dose = 2 gm, Start date: 07/07/19 10:56:00 GEOSCIENCE TECHNICIAN, Stop date: 07/07/19 10:56:00 GEOSCIENCE TECHNICIAN , 0 Notes: WASTE: F/P - Sink; E - Municipal Trash Bin Start Date: 07/07/19 Stop Date: 07/07/19 Status: Completed metoprolol tartrate 25 mg, 1 tab, Route: PO, Drug form: TAB, BID, Dosing Weight 60.909, kg, Start da te: 07/07/19 9:00:00 GEOSCIENCE TECHNICIAN, Duration: 30 day, Stop date: 08/05/19 21:00:00 CDT, 0 Notes: (Same as: Lopressor) Start Date: 07/07/19 Stop Date: 07/07/19 Status: Discontinued nitroglycerin SL Tab 0.4 mg, 1 tab, Route: SL, Drug form: TAB, Q5Min, Dosing Weight 60.909, kg, PRN C hest Pain, Start date: 07/07/19 4:06:00 GEOSCIENCE TECHNICIAN, Duration: 3 doses or times, Stop da te: Limited # of times, 0 Notes: (Same as:Nitroquick, Nitrostat)"Do Not Crush" Sublingual tablet Start Date: 07/07/19 Stop Date: 07/07/19 Status: Discontinued omeprazole 40 mg, 1 cap, Route: PO, Drug form: DRC, Daily, Dosing Weight 60.909, kg, Start date: 07/07/19 9:00:00 GEOSCIENCE TECHNICIAN, Duration: 30 day, Stop date: 08/05/19 9:00:00 CDT Start Date: 07/07/19 Stop Date: 07/07/19 Status: Deleted potassium chloride 40 mEq, 2 tab, Route: PO, Drug form: ERTAB, ONCE, Dosing Weight 60.909, kg, Star t date: 07/07/19 10:56:00 GEOSCIENCE TECHNICIAN, Stop date: 07/07/19 10:56:00 GEOSCIENCE TECHNICIAN, 0 Notes: (Same as: K-Dur )"Do Not Crush" Give with food and full glass of water For patients unable to swallow tablet, dissolve in one half glass of water. Allo w about 2 minutes for the tablets to disintegrate. Stir before giving to prepare slurry and administer.Please exclude Patients with feeding tube less than 14 [place] (Dobhoff, J-tube etc) and pediatric and patients. Start Date: 07/07/19 Stop Date: 07/07/19 Status: Completed prednisoLONE ophthalmic 1 drp, Route: LEFT EYE, TID, Drug form: SUSP, Start date: 07/07/19 9:00:00 GEOSCIENCE TECHNICIAN, Duration: 30 day, Stop date: 08/05/19 17:00:00 CDT, 0 Notes: (Same as: Pred Forte) Start Date: 07/07/19 Stop Date: 07/07/19 Status: Discontinued Protonix 40 mg, 1 tab, Route: PO, Drug form: ECTAB, Daily, Start date: 07/07/19 9:00:[address], Duration: 30 day, Stop date: 08/05/19 9:00:00 CDT, 0 Notes: Tablet should not be chewed or crushed.(Same as: Protonix) Start Date: 07/07/19 Stop Date: 07/07/19 Status: Discontinued Saline Flush 0.9% 10 ml, Route: IVP, Drug Form: INJ, Dosing Weight 60.909, kg, Q12H, Start date: 0 07/07/19 9:00:00 GEOSCIENCE TECHNICIAN, Duration: 30 day, Stop date: 08/05/19 21:00:00 CDT, 0 Notes: (Same as: BD Posiflush) Start Date: 07/07/19 Stop Date: 07/07/19 Status: Discontinued Saline Flush 0.9% 10 ml, Route: IVP, Drug Form: INJ, Dosing Weight 60.909, kg, PRN, PRN Line Flush , Start date: 07/07/19 4:06:00 GEOSCIENCE TECHNICIAN, Duration: 30 day, Stop date: 08/06/19 5:05:0 0 CDT, 0 Notes: (Same as: BD Posiflush) Start Date: 07/07/19 Stop Date: 07/07/19 Status: Discontinued Travatan Z 0.004% ophthalmic solution 1 drp, Route: OPTH, Drug Form: SOLN, Dosing Weight 60.909, kg, QPM, Start date: 07/07/19 17:00:00 GEOSCIENCE TECHNICIAN, Duration: 30 day, Stop date: 08/05/19 17:00:00 CDT Start Date: 07/07/19 Stop Date: 07/07/19 Status: Deleted warfarin 6 mg, 3 tab, Route: PO, Drug form: TAB, Q5PM, Dosing Weight 60.909, kg, Start da te: 07/07/19 17:00:00 GEOSCIENCE TECHNICIAN, Duration: 1 doses or times, Stop date: 07/07/19 17:00 :00 GEOSCIENCE TECHNICIAN, 0 Start Date: 07/07/19 Stop Date: 07/07/19 Status: Canceled warfarin 1 mg, 1 tab, Route: PO, Drug form: TAB, Q-M-W-F, Dosing Weight 60.909, kg, Start date: 07/08/19 17:00:00 GEOSCIENCE TECHNICIAN, Duration: 30 day, Stop date: 08/05/19 17:00:00 CDT, 0 Notes: Nurse to ensure documentation of patient education per anticoagulation po licy.Avoid large intake of vitamin-K containing foods diet.(Same As: Coumadin)WA JAIMEE: F/P - P Waste Black; E - P Waste Black Hazardous Drug Group 3:Reproductive risk Hazardous Drug -- Refer to safe handling procedure PPE Matrix Start Date: 07/08/19 Stop Date: 07/07/19 Status: Canceled Results 1 2 3 Most recent to oldest [Reference Range]: 2.4 K/CMM (07/07/19 7:35 AM) 3.1 K/CMM (07/06/19 7:45 PM) Neutrophils # [1.5-8.1 K/CMM] 1.2 K/CMM (07/07/19 7:35 AM) 1.3 K/CMM (07/06/19 7:45 PM) Lymphocytes # [1.0-5.5 K/CMM] 0.4 K/CMM (07/07/19 7:35 AM) 0.4 K/CMM (07/06/19 7:45 PM) Monocytes # [0.0-0.8 K/CMM] 0.2 K/CMM (07/07/19 7:35 AM) 0.2 K/CMM (07/06/19 7:45 PM) Eosinophils # [0.0-0.5 K/CMM] 110 pg/mL *HI* (07/06/19 7:45 PM) BNP [<=100 pg/mL] 0.4 mg/dL (07/07/19 7:35 AM) Bili Indirect [0.0-1.0 mg/dL] 60 mL/min/1.73m2 1 *NA* (07/07/19 7:35 AM) 48 mL/min/1.73m2 2 *NA* (07/06/19 7:45 PM) eGFR 0.9 (07/07/19 7:35 AM) 0.9 (07/06/19 7:45 PM) A/G Ratio [0.7-1.6] 3.5 g/dL (07/07/19 7:35 AM) 3.7 g/dL (07/06/19 7:45 PM) Albumin Lvl [3.5-5.0 g/dL] 94 unit/L (07/07/19 7:35 AM) 105 unit/L (07/06/19 7:45 PM) Alk Phos [39-136 unit/L] 16 unit/L (07/07/19 7:35 AM) 18 unit/L (07/06/19 7:45 PM) ALT [0-65 unit/L] 9.7 mEq/L *LOW* (07/07/19:35 AM) 11.4 mEq/L (07/06/19 7:45 PM) AGAP [10.0-20.0 mEq/L] 17 unit/L (07/07/19 7:35 AM) 17 unit/L (07/06/19 7:45 PM) AST [0-37 unit/L] 25 (07/06/19 7:45 PM) B/C Ratio [6-25] 0.5 % (07/07/19 7:35 AM) 0.6 % (07/06/19 7:45 PM) Basophils [0.0-1.0 %] 28 mg/dL *HI* (07/07/19 7:35 AM) 28 mg/dL *HI* (07/06/19 7:45 PM) BUN [7-22 mg/dL] 9.2 mg/dL (07/07/19 7:35 AM) 8.8 mg/dL (07/06/19 7:45 PM) Calcium Lvl [8.5-10.5 mg/dL] 66 unit/L (07/06/19 7:45 PM) Total CK [12-191 unit/L] 106 mEq/L (07/07/19 7:35 AM) 103 mEq/L (07/06/19 7:45 PM) Chloride Lvl [95-109 mEq/L] 29 mEq/L (07/07/19 7:35 AM) 27 mEq/L (07/06/19 7:45 PM) CO2 [24-32 mEq/L] 0.94 mg/dL (07/07/19 7:35 AM) 1.13 mg/dL (07/06/19 7:45 PM) Creatinine Lvl [0.50-1.40 mg/dL] 0.1 mg/dL (07/07/19 7:35 AM) Bili Direct [0.0-0.3 mg/dL] 4.5 % *HI* (07/07/19 7:35 AM) 4.2 % *HI* (07/06/19 7:45 PM) Eosinophils [0.0-4.0 %] 3.9 g/dL (07/07/19 7:35 AM) 4.2 g/dL (07/06/19 7:45 PM) Globulin [2.7-4.2 g/dL] 160 mg/dL *HI* (07/07/19 7:35 AM) 303 mg/dL *HI* (07/06/19 7:45 PM) Glucose Lvl [70-99 mg/dL] 25.2 % *LOW* (07/07/19 7:35 AM) 26.6 % *LOW* (07/06/19 7:45 PM) Hct [36.0-48.0 %] 7.9 g/dL *LOW* (07/07/19 7:35 AM) 8.4 g/dL *LOW* (07/06/19 7:45 PM) Hgb [12.0-16.0 g/dL] 2.37 *HI* (07/07/19 7:35 AM) 2.13 *HI* (07/06/19 7:45 PM) INR [0.85-1.17] 3.7 mEq/L (07/07/19 7:35 AM) 4.4 mEq/L (07/06/19 7:45 PM) Potassium Lvl [3.5-5.1 mEq/L] 28.4 % (07/07/19 7:35 AM) 26.4 % (07/06/19 7:45 PM) Lymphocytes [20.0-40.0 %] 23.4 pg *LOW* (07/07/19 7:35 AM) 23.3 pg *LOW* (07/06/19 7:45 PM) MCH [27.0-31.0 pg] 31.6 g/dL *LOW* (07/07/19 7:35 AM) 31.5 g/dL *LOW* (07/06/19 7:45 PM) MCHC [32.0-36.0 g/dL] 74.1 fL *LOW* (07/07/19 7:35 AM) 74.2 fL *LOW* (07/06/19 7:45 PM) MCV [80.0-98.0 fL] 1.9 mg/dL (07/07/19 7:35 AM) 1.9 mg/dL (07/06/19 7:45 PM) Magnesium Lvl [1.8-2.4 mg/dL] 1+ *ABN* (07/07/19 7:35 AM) 1+ *ABN* (07/06/19 7:45 PM) Microcyte [None Seen] 8.9 % (07/07/19 7:35 AM) 8.4 % (07/06/19 7:45 PM) Monocytes [2.0-12.0 %] 8.8 fL (07/07/19 7:35 AM) 8.9 fL (07/06/19 7:45 PM) MPV [7.4-10.4 fL] 141 mEq/L (07/07/19 7:35 AM) 137 mEq/L (07/06/19 7:45 PM) Sodium Lvl [135-145 mEq/L] 3.4 mg/dL (07/07/19 7:35 AM) Phosphorus [2.5-4.5 mg/dL] 153 K/CMM (07/07/19 7:35 AM) 162 K/CMM (07/06/19 7:45 PM) Platelet [133-450 K/CMM] 57.7 % (07/07/19 7:35 AM) 60.4 % (07/06/19 7:45 PM) Segs [45.0-75.0 %] 7.4 g/dL (07/07/19:35 AM) 7.9 g/dL (07/06/19 7:45 PM) Total Protein [6.4-8.4 g/dL] 26.3 seconds *HI* (07/07/19 7:35 AM) 24.2 seconds *HI* (07/06/19 7:45 PM) PT [12.0-14.7 seconds] 48.5 seconds *HI* (07/07/19 7:35 AM) 47.2 seconds *HI* (07/06/19 7:45 PM) PTT [22.9-35.8 seconds] 3.39 M/CMM *LOW* (07/07/19 7:35 AM) 3.58 M/CMM *LOW* (07/06/19 7:45 PM) RBC [4.20-5.40 M/CMM] 18.3 % *HI* (07/07/19 7:35 AM) 18.3 % *HI* (07/06/19 7:45 PM) RDW [11.5-14.5 %] 0.5 mg/dL (07/07/19 7:35 AM) 0.5 mg/dL (07/06/19 7:45 PM) Bili Total [0.2-1.3 mg/dL] <0.02 ng/mL (07/07/19 12:06 PM) <0.02 ng/mL (07/07/19 7:35 AM) <0.02 ng/mL (07/06/19 7:45 PM) Troponin-I [0.00-0.40 ng/mL] 4.1 K/CMM (07/07/19 7:35 AM) 5.1 K/CMM (07/06/19 7:45 PM) WBC [3.7-10.4 K/CMM] 1Result Comment: The eGFR is calculated using [...] no reaction 2Result Comment: fluzone high dose [[id number]]. Migrated from OBS ; Data migrated from [facility] on 06/28/2015. 3Result Comment: fluzone (>3 yrs.) [[id number]]. Migrated from OBS ; Data migrated from [facility] on 06/28/2015. 4Result Comment: pneumovax 23 [[id number]]. Migrated from OBS VIS: Pneumovax 23: 03/01/09 ; Data migrated from [facility] on 06/28/2015. Procedures Procedure Date Related Diagnosis [...] No entered on: 07/07/19 Assessment and Plan Extracted from: Title: Clinical Document Author: Samara Ho NP Date: 04/15 [facility] Consultation / History & Physical Addendum Patient seen and examined with [...] dose of oral Lasix Eugenie Rojas MD FAC Chief Complaint: Shortness of breath, sharp chest [...] She is no longer short of breath. Clean Up Worker: Dr. Rojas Past Medical History: Hypertension Diabetes [...] Back pain - no. Myalgias - no VitalsTmp(F)[id number] 07/07 09:28----64 07/07 09:19----[id number]------ 07/07 08:[id number]--- 07/07 02:[id number]--- 07/07 01:28 98--- 24 Hr Tmax: 98.1F (36.72c) at 07/06 19:3 8Vital Signs are the last 5 in the past 48 hours. Physical Exam: General: Awake and alert, Oriented Neck: Supple, no JVD or Bruits Cardiovascular: Regular, normal S1 S2, No significant murmurs. Lungs: Clear bilaterally, no rales or wheezing Abdomen: Soft, NT/ND +BS Extremities: No edema, + peripheral pulses Neuro: No focal neurological abnormalities Labs: Labs (Last four charted values) WBC 4.1(JUL 07)5.1(JUL 06) Hgb L 7.9(JUL 07)L 8.4(JUL 06) Hct L 25.2(JUL 07)L 26.6(JUL 06) Plt 153(JUL 07)162(JUL 06) Na 141(JUL 07)137(JUL 06) K 3.7(JUL 07)4.4(JUL 06) CO2 29(JUL 07)27(JUL 06) Cl 106(JUL 07)103(JUL 06) Cr 0.94(JUL 07)1.13(JUL 06) BUN H 28(JUL 07)H 28(JUL 06) Glucose Random H 160(JUL 07)H 303(JUL 06) Mg 1.9(JUL 07)1.9(JUL 06) Phos 3.4(JUL 07) Ca 9.2(JUL 07)8.8(JUL 06) PT H 26.3(JUL 07)H 24.2(JUL 06) INR H 2.37(JUL 07)H 2.13(JUL 06) PTT H 48.5(JUL 07)H 47.2(JUL 06) Troponin <0.02(JUL 07)<0.02(JUL 06) Total CK 66(JUL 06) Scheduled Medications: Scheduled Meds (14): 07/07/19 [...] We will continue to monitor closely. Extracted from: Title: [facility] History and Author: Chrissie Jeffrey MD Date: 07/07/19 Physical 1.Acute exacerbation of CHF (congestiv e heart failure)(I50.9) Ordered: 2.Chest pain(R07.9) Ordered: 3.Essential [...] greater than 40 minutes. Chrissie Jeffrey MD [employer]
--- OUTSIDE RECORDS SUMMARY | 2019-12-25 20:49 | XMS REPORT | CCD ---
Author Author Auto KAREN Aguayo [facility] Address Unknown Phone Unavailable Care Team Providers Care Intelligence Manager Name Role Phone Mary Beth Horowitz CP Unavailable Renuka Duron CP [phone] [employer], Login CP Unavailable Jennifer Foster CP Unavailable Orlando Neil RP SYSTEM, SYSTEM CP Unavailable Alysa De Luna CP Aaron Tapia CP Allergies, Adverse Reactions, Alerts Substance Reaction Status NKDA ?? Active Medications Medication Instructions Start Date End Date Status influenza virus 0.5 ml, Route: IM, Drug Form: INJ, 07/01/2008 07/09/2008 Completed vaccine, inactivated ONCALL, Start date: 9 23:18:06, Stop date: 07/31/08 23:03:06 Immunizations Vaccine Date Status influenza virus vaccine, inactivated 07/09/2008 [facility] (Verified)
--- OUTSIDE RECORDS SUMMARY | 2019-12-25 20:49 | XMS REPORT | Summary of Care ---
Author [facility] Address Unknown Phone Unavailable Encounter CONTRERAS Gray(LAN) [id number] Date(s): 04/30/19 - 05/01/19 [facility] [address] [facility] provided by [facility] [place] [address]- Discharge Disposition: Home or Self Care Attending Physician: Anthony Coelho MD Admitting Physician: Anthony Coelho MD Referring Physician: Anthony Coelho MD Vital Signs 1 2 3 Most recent to oldest [Reference Range]: 160.02 cm (04/30/19 9:56 AM) Height 97.7 DegF (05/01/19 4:00 PM) 98.0 DegF (05/01/19 12:00 PM) 98.1 DegF (05/01/19 8:25 AM) Temperature Oral [96.4-99.1 DegF] 154/65 mmHg *HI* (05/01/19 2:00 PM) 134/66 mmHg (05/01/19 1:00 PM) Blood Pressure [90-140/60-90 mmHg] 168 mmHg *HI* (05/01/19 3:00 PM) Systolic Blood Pressure [90-140 mmHg] 72 mmHg (05/01/19 3:00 PM) Diastolic Blood Pressure [60-90 mmHg] 30 BRMIN *HI* (05/01/19 9:00 AM) 19 BRMIN (05/01/19 8:25 AM) 18 BRMIN (05/01/19 7:00 AM) Respiratory Rate [14-20 BRMIN] 60.455 kg (04/30/19 9:56 AM) Weight 23.61 m2 (04/30/19 9:56 AM) Body Mass Index Problem List Condition Effective Dates Status Health Status Informan t Acute cystitis1 07/13/13 Resolved Anemia2 8/11/14 Active Anemia(Confirmed) Active Aortic valve 12/03/14 Active [...] 01/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)1 1 Hyperlipemia, Active mixed(Confirmed) [id number] 03/09/14 Active Osteoarthritis(Confi Active rmed) Postmenopausal 09/01/13 Active state13 Screening - health 08/17/14 Resolved check14, 15 Type 2 diabetes 05/27/59 Active mellitus(Confirmed)1 6 Urinary 03/03/13 Active [id number] Urinary tract 04/28/14 Resolved infectious On warfarin [...] 10/23/14. 14Data migrated from [employer] on 7/8/15. 15Data migrated from [employer] on 10/26/14. 16Data migrated from [employer] on 10/23/14. 17Data migrated from [employer] on 10/23/14. 18Data migrated from [employer] on 12/11/14. Allergies, Adverse Reactions, Alerts No Known Medication Allergies Substance Reaction Severity Status NKFA Active Medications acetaminophen 1,000 mg, 100 mL, Route: IVPB, Drug form: INJ, ONCE, Dosing Weight 60.455, kg, P RN Pain Score 1-3, Start date: 04/30/19 15:13:00 [facility], 0 Notes: Infuse over 15 minutesDo not exceed 4gm/day of acetaminophen MEDICAT ION WASTE Product Size: 1000 mgProduct Wasted: ___ mg Start Date: 04/30/19 Stop Date: 05/01/19 Status: Discontinued acetaminophen 650 mg, 2 tab, Route: PO, Drug form: TAB, Q6H, Dosing Weight 45.455, kg, PRN Jihan n 1-3/Temp > 100.4 F, Start date: 05/01/19 2:31:00 [facility], Duration: 30 day, Stop date: 05/31/19 2:30:00 [facility], 0 Notes: Do not exceed 4 gm/day. (Same as: Tylenol) Start Date: 05/01/19 Stop Date: 05/01/19 Status: Discontinued ANES fentaNYL 50 microgram, Route: IVP, Q5Min, Dosing Weight 60.455, kg, PRN Pain Score 7-10, Priority: Routine, Start date: 04/30/19 16:58:00 [facility], Duration: 2 doses or times , Stop date: Limited # of times Start Date: 04/30/19 Stop Date: 04/30/19 Status: Discontinued ANES flumazenil 0.2 mg, Route: IVP, PRN, Dosing Weight 60.455, kg, PRN Benzodiazepine Reversal, Initial dose, Start date: 04/30/19 16:58:00 [facility], Duration: 30 day, Stop date: 16:57:00 [facility] Start Date: 04/30/19 Stop Date: 04/30/19 Status: Discontinued ANES hydrALAZINE 10 mg, Route: IVP, Q20Min, Dosing Weight 60.455, kg, PRN Elevated BP, Start date : 04/30/19 16:58:00 [facility], Duration: 2 doses or times, Stop date: Limited # of uzma es Start Date: 04/30/19 Stop Date: 04/30/19 Status: Discontinued ANES HYDROmorphone 0.5 mg, Route: IVP, Q5Min, Dosing Weight 60.455, kg, PRN Pain Score 7-10, Start date: 04/30/19 16:58:00 [facility], Duration: 4 doses or times, Stop date: Limited # of times Start Date: 04/30/19 Stop Date: 04/30/19 Status: Discontinued ANES metoprolol 1 mg, Route: IVP, Q5Min, Dosing Weight 60.455, kg, PRN Other -See Comment, Start date: 04/30/19 16:58:00 [facility], Duration: 5 doses or times, Stop date: Limited # of times Start Date: 04/30/19 Stop Date: 04/30/19 Status: Discontinued ANES naloxone 0.4 mg, Route: IVP, Q2MIN, Dosing Weight 60.455, kg, PRN Narcotic Reversal, Star t date: 04/30/19 16:58:00 [facility], Duration: 8 doses or times, Stop date: Limited # of times Start Date: 04/30/19 Stop Date: 04/30/19 Status: Discontinued ANES ondansetron 4 mg, Route: IVP, ONCE, Dosing Weight 60.455, kg, PRN Nausea & Vomiting, Start date: 04/30/19 16:58:00 [facility] Start Date: 04/30/19 Stop Date: 04/30/19 Status: Discontinued ANES oxyCODONE 5 mg, Route: NG, Drug form: LIQ, Q4H, Dosing Weight 60.455, kg, PRN Pain Score 4 -6, Start date: 04/30/19 16:58:00 [facility], Duration: 30 day, Stop date: 05/30/19 16: 57:00 [facility] Start Date: 04/30/19 Stop Date: 04/30/19 Status: Discontinued aspirin 81 mg tablet, enteric coated 81 mg, 1 tab, Route: PO, Drug form: ECTAB, Daily, Dosing Weight 60.455, kg, Star t date: 05/01/19 9:00:00 [facility], Duration: 30 day, Stop date: 05/30/19 9:00:00 [facility], 0 Notes: Do not crush or chew.(Same As: Ecotrin) Start Date: 05/01/19 Stop Date: 05/01/19 Status: Discontinued atorvastatin 10 mg, 1 tab, Route: PO, Drug form: TAB, Daily, Dosing Weight 60.455, kg, Start date: 05/01/19 9:00:00 [facility], Duration: 30 day, Stop date: 05/30/19 9:00:00 [facility], 0 Notes: (Same As: Lipitor) Start Date: 05/01/19 Stop Date: 05/01/19 Status: Discontinued ceFAZolin (ANES) Route: IV, Drug form: INJ, ONCE, Stop date: 04/30/19 16:18:00 [facility] Start Date: 04/30/19 Stop Date: 04/30/19 Status: Completed ceFAZolin (SCIP) + sterile water 10 mL 1 gm, Route: IVP, Q8H, Dosing Weight 60.455, kg, Start date: 04/30/19 16:00:[address], Duration: 1 doses or times, Stop date: 04/30/19 16:00:00 [facility], ABX Indication : Surgical Prophylaxis, 0 Notes: (Same As: Linnea Dickerson) MEDICATION WASTE Product Size: 1000 mgP roduct Wasted: ___ mg Start Date: 04/30/19 Stop Date: 04/30/19 Status: Deleted ceFAZolin (SCIP) + sterile water 10 mL 1 gm, Route: IVP, Q8H, Dosing Weight 60.455, kg, Start date: 04/30/19 23:00:[address], Duration: 1 doses or times, Stop date: 04/30/19 23:00:00 [facility], ABX Indication : Surgical Prophylaxis, 0 Notes: (Same As: Linnea Dickerson) MEDICATION WASTE Product Size: 1000 mgP roduct Wasted: ___ mg Start Date: 04/30/19 Stop Date: 04/30/19 Status: Completed Coumadin 6 mg, 2 tab, Route: PO, Drug form: TAB, ONCE, Dosing Weight 45.455, kg, Start da te: 05/01/19 17:08:00 [facility], Stop date: 05/01/19 17:08:00 [facility], 0 Notes: Nurse to ensure documentation of patient education per anticoagulation po licy.Avoid large intake of vitamin-K containing foods diet.(Same As: Coumadin)WA JAIMEE: F/P - P Waste Black; E - P Waste Black Start Date: 05/01/19 Stop Date: 05/01/19 Status: Completed Dextrose 50% Syringe (D50W) 12.5 gm, 25 mL, Route: IVP, Drug Form: INJ, Dosing Weight 60.455, kg, PRN, PRN B lood Glucose Results, Start date: 04/30/19 17:59:00 [facility], Duration: 30 day, Stop date: 05/30/19 17:58:00 [facility], 0 Start Date: 04/30/19 Stop Date: 05/01/19 Status: Discontinued Dextrose 50% Syringe (D50W) 25 gm, 50 mL, Route: IVP, Drug Form: INJ, Dosing Weight 60.455, kg, PRN, PRN Blo od Glucose Results, Start date: 04/30/19 17:59:00 [facility], Duration: 30 day, Stop da te: 05/30/19 17:58:00 [facility], 0 Start Date: 04/30/19 Stop Date: 05/01/19 Status: Discontinued digoxin 125 mcg (0.125 mg) oral tablet 125 microgram, 1 tab, Route: PO, Drug form: TAB, Daily, Dosing Weight 60.455, kg , Start date: 05/01/19 9:00:00 [facility], Duration: 30 day, Stop date: 05/30/19 9:00:0 0 [facility], 0 Notes: Take on an Empty Stomach (Same as: Lanoxin) Start Date: 05/01/19 Stop Date: 05/01/19 Status: Discontinued docusate 100 mg, 1 cap, Route: PO, Drug form: CAP, Q12H, Dosing Weight 60.455, kg, Start date: 04/30/19 21:00:00 [facility], Duration: 30 day, Stop date: 05/30/19 9:00:00 [facility], 0 Notes: (Same as: Colace) (Do Not Crush) Start Date: 04/30/19 Stop Date: 05/01/19 Status: Discontinued escitalopram 10 mg, 1 tab, Route: PO, Drug form: TAB, Daily, Dosing Weight 60.455, kg, Start date: 05/01/19 9:00:00 [facility], Duration: 30 day, Stop date: 05/30/19 9:00:00 [facility], 0 Notes: (Same as: Lexapro) Start Date: 05/01/19 Stop Date: 05/01/19 Status: Discontinued fentaNYL (ANES) Route: IV, Drug form: INJ, ONCE, Stop date: 04/30/19 16:13:00 [facility] Start Date: 04/30/19 Stop Date: 04/30/19 Status: Completed ferrous sulfate 325 mg, 1 tab, Route: PO, Drug form: ECTAB, Daily, Dosing Weight 60.455, kg, Sta rt date: 05/01/19 9:00:00 [facility], Duration: 30 day, Stop date: 05/30/19 9:00:00 [facility] , 0 Notes: Give with food. "Do Not Crush" Start Date: 05/01/19 Stop Date: 05/01/19 Status: Discontinued furosemide 40 mg oral tablet 40 mg, 1 tab, Route: PO, Drug form: TAB, Daily, Dosing Weight 60.455, kg, Priori ty: NOW, Start date: 05/01/19 5:35:00 [facility], Duration: 30 day, Stop date: 05/30/19 9:00:00 [facility], 0 Notes: (Same as: Lasix) May cause GI upset. Give with food or milk. Start Date: 05/01/19 Stop Date: 05/01/19 Status: Discontinued glucagon 1 mg, Route: IM, Drug form: PDR/INJ, PRN, Dosing Weight 60.455, kg, PRN Blood Gl ucose Results, Start date: 04/30/19 17:59:00 [facility], Duration: 30 day, Stop date: 0 05/30/19 17:58:00 [facility], 0 Start Date: 04/30/19 Stop Date: 05/01/19 Status: Discontinued heparin (ANES) Route: IV, Drug form: INJ, ONCE, Stop date: 04/30/19 16:43:00 [facility] Start Date: 04/30/19 Stop Date: 04/30/19 Status: Completed insulin glargine 15 unit, 0.15 mL, Route: SUB-Q, Drug form: SOLN, Daily, Dosing Weight 60.455, kg , Start date: 05/01/19 9:00:00 [facility], Duration: 30 day, Stop date: 05/30/19 9:00:0 0 [facility], 0 Start Date: 05/01/19 Stop Date: 05/01/19 Status: Discontinued insulin lispro 1 unit, 0.01 mL, Route: SUB-Q, Drug form: SOLN, TID-Before Meals, Dosing Weight 60.455, kg, PRN Blood Glucose Results, Start date: 04/30/19 17:59:00 [facility], Durati on: 30 day, Stop date: 05/30/19 17:58:00 [facility], 0 Notes: (Same as: Humalog) Roll in palms of hands gently; Do not shake vigorously . WASTE: F/P - Black; E - Municipal Trash BinStable for 28 days at room tempera ture.Expires in days from Date Start Date: 04/30/19 Stop Date: 05/01/19 Status: Discontinued insulin lispro 2 unit, 0.02 mL, Route: SUB-Q, Drug form: SOLN, TID-Before Meals, Dosing Weight 60.455, kg, PRN Blood Glucose Results, Start date: 04/30/19 17:59:00 [facility], Durati on: 30 day, Stop date: 05/30/19 17:58:00 [facility], 0 Notes: (Same as: Humalog) Roll in palms of hands gently; Do not shake vigorously . WASTE: F/P - Black; E - Municipal Trash BinStable for 28 days at room tempera ture.Expires in days from Date Start Date: 04/30/19 Stop Date: 05/01/19 Status: Discontinued insulin lispro 3 unit, 0.03 mL, Route: SUB-Q, Drug form: SOLN, TID-Before Meals, Dosing Weight 60.455, kg, PRN Blood Glucose Results, Start date: 04/30/19 17:59:00 [facility], Durati on: 30 day, Stop date: 05/30/19 17:58:00 [facility], 0 Notes: (Same as: Humalog) Roll in palms of hands gently; Do not shake vigorously . WASTE: F/P - Black; E - Municipal Trash BinStable for 28 days at room [facility].Expires in days from Date Start Date: 04/30/19 Stop Date: 05/01/19 Status: Discontinued insulin lispro 4 unit, 0.04 mL, Route: SUB-Q, Drug form: SOLN, TID-Before Meals, Dosing Weight 60.455, kg, PRN Blood Glucose Results, Start date: 04/30/19 17:59:00 [facility], Durati on: 30 day, Stop date: 05/30/19 17:58:00 [facility], 0 Notes: (Same as: Humalog) Roll in palms of hands gently; Do not shake vigorously . WASTE: F/P - Black; E - Municipal Trash BinStable for 28 days at [facility].Expires in days from Date Start Date: 04/30/19 Stop Date: 05/01/19 Status: Discontinued insulin lispro 5 unit, 0.05 mL, Route: SUB-Q, Drug form: SOLN, TID-Before Meals, Dosing Weight 60.455, kg, PRN Blood Glucose Results, Start date: 04/30/19 17:59:00 [facility], Durati on: 30 day, Stop date: 05/30/19 17:58:00 [facility], 0 Notes: (Same as: Humalog) Roll in palms of hands gently; Do not shake vigorously . WASTE: F/P - Black; E - Municipal Trash BinStable for 28 days at [facility].Expires in days from Date Start Date: 04/30/19 Stop Date: 05/01/19 Status: Discontinued latanoprost ophthalmic 1 drp, Route: Each Affected Eye, Bedtime, Drug form: SOLN, Start date: 04/30/19 21:00:00 [facility], Duration: 30 day, Stop date: 05/29/19 21:00:00 [facility], 0 Notes: Keep refrigerated. (Same as:Xalatan)Opened bottle may be stored at room t emperature for 6 weeks Start Date: 04/30/19 Stop Date: 05/01/19 Status: Discontinued losartan 25 mg, 1 tab, Route: PO, Drug form: TAB, Daily, Dosing Weight 60.455, kg, Start date: 05/01/19 9:00:00 [facility], Duration: 30 day, Stop date: 05/30/19 9:00:00 [facility], 0 Notes: (Same as: Cozaar) Start Date: 05/01/19 Stop Date: 05/01/19 Status: Discontinued Lovenox 60 mg, 0.6 mL, Route: SUB-Q, Drug form: INJ, ONCE, Dosing Weight 60.455, kg, Sta rt date: 04/30/19 19:00:00 [facility], Stop date: 04/30/19 19:00:00 [facility], 0 Notes: Nurse to ensure documentation of patient education per anticoagulation po licy. (Same as: Lovenox) Start Date: 04/30/19 Stop Date: 04/30/19 Status: Completed Lovenox 60 mg, 0.6 mL, Route: SUB-Q, Drug form: INJ, Daily, Dosing Weight 60.455, kg, St art date: 05/01/19 20:00:00 [facility], Duration: 30 day, Stop date: 05/30/19 20:00:00 [facility], 0 Notes: Nurse to ensure documentation of patient education per anticoagulation po licy. (Same as: Lovenox) Start Date: 05/01/19 Stop Date: 05/01/19 Status: Discontinued metoprolol extended release 25 mg, 1 tab, Route: PO, Drug form: ERTAB, Q12H, Start date: 05/01/19 9:00:00 CS T, Duration: 30 day, Stop date: 05/30/19 21:00:00 [facility], 0 Notes: (Same as: Toprol XL) Do Not Crush Start Date: 05/01/19 Stop Date: 05/01/19 Status: Discontinued midazolam (ANES) Route: IV, Drug form: SOLN, ONCE, Stop date: 04/30/19 16:13:00 [facility] Start Date: 04/30/19 Stop Date: 04/30/19 Status: Completed niCARdipine 40 mg in NS 200 mL (Titrate.) IV 40 mg 40 mg, 200 mL, Rate: Titrate, Start Dose: 5 mg/hr, Titration: 2mg every 15 minut es PRN, Goal(s): maintain MAP 75-85 mmHg, Max Dose: 15mg/hr, Route: IVPB, Dosing Weight 60.455 kg, Total Volume: 200, Start date: 04/30/19 15:13:00 [facility], Duratio n: 30 day,... Notes: Same as: CardeneConcentration: (0.2 mg /1 ml ) Start Date: 04/30/19 Stop Date: 05/01/19 Status: Discontinued omeprazole 40 mg, Route: PO, Drug form: DRC, Daily, Dosing Weight 60.455, kg, Start date: 1 07/02/18 9:00:00 [facility], Duration: 30 day, Stop date: 05/30/19 9:00:00 [facility] Start Date: 05/01/19 Stop Date: 04/30/19 Status: Deleted ondansetron 4 mg, 2 mL, Route: IVP, Drug form: INJ, Q8H, Dosing Weight 60.455, kg, PRN Nause a & Vomiting, Start date: 04/30/19 15:13:00 [facility], Duration: 30 day, Stop date: 05/30/19 15:12:00 [facility], 0 Notes: (Same as: Charity) MEDICATION WASTE Product Size: 4 mgProduct Was pita: ___ mg Start Date: 04/30/19 Stop Date: 05/01/19 Status: Discontinued pantoprazole 40 mg, 1 tab, Route: PO, Drug form: ECTAB, Before Dinner, Dosing Weight 60.455, kg, Start date: 04/30/19 16:30:00 [facility], Duration: 30 day, Stop date: 05/29/19 16: 30:00 [facility], 0 Notes: Tablet should not be chewed or crushed.(Same as: Protonix) Start Date: 04/30/19 Stop Date: 05/01/19 Status: Discontinued phenylephrine (ANES) Route: IV, Drug form: INJ, ONCE, Stop date: 04/30/19 16:38:00 [facility] Start Date: 04/30/19 Stop Date: 04/30/19 Status: Completed polyethylene glycol 3350 17 gm, 1 pkt, Route: PO, Drug form: PWDR, Daily, Dosing Weight 60.455, kg, Start date: 05/01/19 9:00:00 [facility], Duration: 30 day, Stop date: 05/30/19 9:00:00 [facility], 0 Notes: Dissolve in 8 oz of water or juice.(Same as: Miralax) Start Date: 05/01/19 Stop Date: 05/01/19 Status: Discontinued prednisoLONE ophthalmic 1 drp, Route: LEFT EYE, TID, Drug form: SUSP, Start date: 05/01/19 9:00:00 [facility], Duration: 30 day, Stop date: 05/30/19 17:00:00 [facility], 0 Notes: (Same as: Pred Forte) Start Date: 05/01/19 Stop Date: 05/01/19 Status: Discontinued propofol (ANES) 10 mg Route: IV, Drug form: INJ, Start date: 04/30/19 15:42:00 [facility], Stop date: 9 16:42:00 [facility] Start Date: 04/30/19 Stop Date: 04/30/19 Status: Completed protamine (ANES) Route: IV, Drug form: INJ, ONCE, Stop date: 04/30/19 16:59:00 [facility] Start Date: 04/30/19 Stop Date: 04/30/19 Status: Completed Protonix 40 mg, 1 tab, Route: PO, Drug form: ECTAB, Before Breakfast, Start date: 9 7:30:00 [facility], Duration: 30 day, Stop date: 05/30/19 7:30:00 [facility], 0 Notes: Tablet should not be chewed or crushed.(Same as: Protonix) Start Date: 05/01/19 Stop Date: 05/01/19 Status: Discontinued Sodium Chloride 0.9% (Bolus) IV 250 mL, 250 ml/hr, Infuse Over: 1 hr, Route: IV, 250, Drug form: INJ, ONCALL, Pr iority: Routine, Dosing Weight 61.364 kg, Start date: 04/30/19 10:00:00 [facility], Dur ation: 1 doses or times, Stop date: 04/30/19 17:00:00 [facility], 0 Start Date: 04/30/19 Stop Date: 05/01/19 Status: Discontinued Sodium Chloride 0.9% (titrate) 250 mL 250 mL, Rate: To prime line and flush remaining blood products., Dosing Weight 6 1.364, kg, Route: IV, Total Volume: 250, Start Date: 04/30/19 9:56:00 [facility], Durat ion: 1 day, Stop date: 05/01/19 9:55:00 [facility], Replace Every: 24 hr, 0 Start Date: 04/30/19 Stop Date: 05/01/19 Status: Discontinued Sodium Chloride 0.9% IV 750 mL 750 mL, Rate: 75 ml/hr, Infuse over: 10 hr, Route: IV, Dosing Weight 61.364 kg, Total Volume: 750, Start date: 04/30/19 9:56:00 [facility], Duration: 24 hr, Stop date: 05/01/19 9:55:00 [facility], 1.68, m2, 0 Start Date: 04/30/19 Stop Date: 05/01/19 Status: Discontinued Toprol-XL 25 mg oral tablet, extended release 25 mg, 1 tab, Route: PO, Drug form: ERTAB, Daily, Priority: NOW, Start date: 11/12 5:35:00 [facility], Duration: 30 day, Stop date: 05/30/19 9:00:00 [facility], 0 Notes: (Same as: Toprol XL) Do Not Crush Start Date: 05/01/19 Stop Date: 05/01/19 Status: Discontinued Travatan Z 0.004% ophthalmic solution 1 drp, Route: OPTH, Drug Form: SOLN, Dosing Weight 60.455, kg, QPM, Start date: 05/01/19 17:00:00 [facility], Duration: 30 day, Stop date: 05/30/19 17:00:00 [facility] Start Date: 05/01/19 Stop Date: 04/30/19 Status: Deleted warfarin Route: PO, Drug form: TAB, Q-M-W-F, Dosing Weight 60.455, kg, Start date: 9:00:00 ST[facility], Duration: 30 day, Stop date: 05/29/19 9:00:00 ST[facility] Start Date: 05/01/19 Stop Date: 04/30/19 Status: Deleted warfarin 5 mg, 1 tab, Route: PO, Drug form: TAB, Daily, Dosing Weight 60.455, kg, Start d ate: 04/30/19 20:10:00 ST[facility], Stop date: 04/30/19 20:30:00 ST[facility], 0 Notes: Nurse to ensure documentation of patient education per anticoagulation po licy.Avoid large intake of vitamin-K containing foods diet.WASTE: F/P - P Waste Black; E - P Waste Black(Same As: Coumadin) Start Date: 04/30/19 Stop Date: 04/30/19 Status: Completed Results 1 2 3 Most recent to oldest [Reference Range]: 3.1 K/CMM (05/01/19 2:45 AM) 2.7 K/CMM (04/30/19 5:18 PM) 4.1 K/CMM (04/30/19 10:01 AM) Neutrophils # [1.5-8.1 K/CMM] 1.1 K/CMM (05/01/19 2:45 AM) 1.3 K/CMM (04/30/19 5:18 PM) 1.2 K/CMM (04/30/19 10:01 AM) Lymphocytes # [1.0-5.5 K/CMM] 0.4 K/CMM (05/01/19 2:45 AM) 0.3 K/CMM (04/30/19 5:18 PM) 0.5 K/CMM (04/30/19 10:01 AM) Monocytes # [0.0-0.8 K/CMM] 0.1 K/CMM (05/01/19 2:45 AM) 0.2 K/CMM (04/30/19 5:18 PM) 0.1 K/CMM (04/30/19 10:01 AM) Eosinophils # [0.0-0.5 K/CMM] 152 pg/mL *HI* (04/30/19 10:01 AM) BNP [<=100 pg/mL] 65 mL/min/1.73m2 1 *NA* (05/01/19 2:45 AM) 65 mL/min/1.73m2 2 *NA* (04/30/19 5:18 PM) 58 mL/min/1.73m2 3 *NA* (04/30/19 10:01 AM) eGFR Product available (04/30/19 9:56 AM) FFP product Product available (04/30/19 9:56 AM) RBC product O NEG *Unknown* (04/30/19 10:01 AM) ABO/Rh 1.0 (04/30/19 10:01 AM) A/G Ratio [0.7-1.6] Negative (04/30/19 10:01 AM) Antibody Scrn 4.2 g/dL (04/30/19 10:01 AM) Albumin Lvl [3.5-5.0 g/dL] 91 unit/L (04/30/19 10:01 AM) Alk Phos [39-136 unit/L] 21 unit/L (04/30/19 10:01 AM) ALT [0-65 unit/L] 11.0 mEq/L (05/01/19 2:45 AM) 10.7 mEq/L (04/30/19 5:18 PM) 13.9 mEq/L (04/30/19 10:01 AM) AGAP [10.0-20.0 mEq/L] 29 unit/L (04/30/19 10:01 AM) AST [0-37 unit/L] 31 *HI* (04/30/19 10:01 AM) B/C Ratio [6-25] 0.6 % (05/01/19 2:45 AM) 0.5 % (04/30/19 5:18 PM) 0.5 % (04/30/19 10:01 AM) Basophils [0.0-1.0 %] 23 mg/dL *HI* (05/01/19 2:45 AM) 25 mg/dL *HI* (04/30/19 5:18 PM) 30 mg/dL *HI* (04/30/19 10:01 AM) BUN [7-22 mg/dL] 8.6 mg/dL (05/01/19 2:45 AM) 8.6 mg/dL (04/30/19 5:18 PM) 9.8 mg/dL (04/30/19 10:01 AM) Calcium Lvl [8.5-10.5 mg/dL] 108 mEq/L (05/01/19 2:45 AM) 104 mEq/L (04/30/19 5:18 PM) 101 mEq/L (04/30/19 10:01 AM) Chloride Lvl [95-109 mEq/L] 24 mEq/L (05/01/19 2:45 AM) 28 mEq/L (04/30/19 5:18 PM) 29 mEq/L (04/30/19 10:01 AM) CO2 [24-32 mEq/L] 0.88 mg/dL (05/01/19 2:45 AM) 0.88 mg/dL (04/30/19 5:18 PM) 0.97 mg/dL (04/30/19 10:01 AM) Creatinine Lvl [0.50-1.40 mg/dL] 1.7 % (05/01/19 2:45 AM) 5.2 % *HI* (04/30/19 5:18 PM) 0.9 % (04/30/19 10:01 AM) Eosinophils [0.0-4.0 %] 4.0 g/dL (04/30/19 10:01 AM) Globulin [2.7-4.2 g/dL] 180 mg/dL *HI* (05/01/19 2:45 AM) 73 mg/dL (04/30/19 5:18 PM) 69 mg/dL *LOW* (04/30/19 10:01 AM) Glucose Lvl [70-99 mg/dL] 23.6 % *LOW* (05/01/19 2:45 AM) 23.5 % *LOW* (04/30/19 5:18 PM) 28.5 % *LOW* (04/30/19 10:01 AM) Hct [36.0-48.0 %] 7.7 g/dL *LOW* (05/01/19 2:45 AM) 7.5 g/dL *LOW* (04/30/19 5:18 PM) 9.1 g/dL *LOW* (04/30/19 10:01 AM) Hgb [12.0-16.0 g/dL] 1.29 *HI* (05/01/19 2:45 AM) 1.29 *HI* (04/30/19 5:18 PM) 1.14 (04/30/19 10:01 AM) INR [0.85-1.17] 4.0 mEq/L (05/01/19 2:45 AM) 3.7 mEq/L (04/30/19 5:18 PM) 3.9 mEq/L (04/30/19 10:01 AM) Potassium Lvl [3.5-5.1 mEq/L] 23.2 % (05/01/19 2:45 AM) 28.1 % (04/30/19 5:18 PM) 20.3 % (04/30/19 10:01 AM) Lymphocytes [20.0-40.0 %] 23.3 pg *LOW* (05/01/19 2:45 AM) 22.8 pg *LOW* (04/30/19 5:18 PM) 22.7 pg *LOW* (04/30/19 10:01 AM) MCH [27.0-31.0 pg] 32.7 g/dL (05/01/19 2:45 AM) 32.1 g/dL (04/30/19 5:18 PM) 31.9 g/dL *LOW* (04/30/19 10:01 AM) MCHC [32.0-36.0 g/dL] 71.2 fL *LOW* (05/01/19 2:45 AM) 71.2 fL *LOW* (04/30/19 5:18 PM) 71.2 fL *LOW* (04/30/19 10:01 AM) MCV [80.0-98.0 fL] 2.3 mg/dL (05/01/19 2:45 AM) 1.9 mg/dL (04/30/19 5:18 PM) 2.3 mg/dL (04/30/19 10:01 AM) Magnesium Lvl [1.8-2.4 mg/dL] 2+ *ABN* (05/01/19 2:45 AM) 2+ *ABN* (04/30/19 5:18 PM) 2+ *ABN* (04/30/19 10:01 AM) Microcyte [None Seen] 8.8 % (05/01/19 2:45 AM) 7.3 % (04/30/19 5:18 PM) 8.0 % (04/30/19 10:01 AM) Monocytes [2.0-12.0 %] 9.0 fL (05/01/19 2:45 AM) 9.2 fL (04/30/19 5:18 PM) 9.0 fL (04/30/19 10:01 AM) MPV [7.4-10.4 fL] 139 mEq/L (05/01/19 2:45 AM) 139 mEq/L (04/30/19 5:18 PM) 140 mEq/L (04/30/19 10:01 AM) Sodium Lvl [135-145 mEq/L] 103 K/CMM *LOW* (05/01/19 2:45 AM) 116 K/CMM *LOW* (04/30/19 5:18 PM) 151 K/CMM (04/30/19 10:01 AM) Platelet [133-450 K/CMM] 65.7 % (05/01/19 2:45 AM) 58.9 % (04/30/19 5:18 PM) 70.3 % (04/30/19 10:01 AM) Segs [45.0-75.0 %] 8.2 g/dL (04/30/19 10:01 AM) Total Protein [6.4-8.4 g/dL] 15.8 seconds *HI* (05/01/19 2:45 AM) 15.8 seconds *HI* (04/30/19 5:18 PM) 14.4 seconds (04/30/19 10:01 AM) PT [12.0-14.7 seconds] 52.6 seconds *HI* (05/01/19 2:45 AM) 50.1 seconds *HI* (04/30/19 5:18 PM) 47.4 seconds *HI* (04/30/19 10:01 AM) PTT [22.9-35.8 seconds] 3.32 M/CMM *LOW* (05/01/19 2:45 AM) 3.29 M/CMM *LOW* (04/30/19 5:18 PM) 4.00 M/CMM *LOW* (04/30/19 10:01 AM) RBC [4.20-5.40 M/CMM] 20.1 % *HI* (05/01/19 2:45 AM) 20.3 % *HI* (04/30/19 5:18 PM) 20.6 % *HI* (04/30/19 10:01 AM) RDW [11.5-14.5 %] 0.8 mg/dL (04/30/19 10:01 AM) Bili Total [0.2-1.3 mg/dL] Negative *NA* (04/30/19 10:01 AM) UA Bili [Negative] Negative (04/30/19 10:01 AM) UA Blood [Negative] Yellow *NA* (04/30/19 10:01 AM) UA Color [Yellow] Negative mg/dL *NA* (04/30/19 10:01 AM) UA Glucose [Negative mg/dL] Negative mg/dL *NA* (04/30/19 10:01 AM) UA Ketones [Negative mg/dL] Negative (04/30/19 10:01 AM) UA Leuk Est [Negative] Negative (04/30/19 10:01 AM) UA Nitrite [Negative] 8.0 (04/30/19 10:01 AM) UA pH [5.0-8.0] 30 mg/dL *ABN* (04/30/19 10:01 AM) UA Protein [Negative mg/dL] 1.018 (04/30/19 10:01 AM) UA Spec Grav [<=1.030] Occasional /LPF *NA* (04/30/19 10:01 AM) UA Sq Epi [Few /LPF] Clear (04/30/19 10:01 AM) UA Turbidity [Clear] 4.0 mg/dL *HI* (04/30/19 10:01 AM) UA Urobilinogen [0.1-1.0 mg/dL] 4.7 K/CMM (05/01/19 2:45 AM) 4.6 K/CMM (04/30/19 5:18 PM) 5.8 K/CMM (04/30/19 10:01 AM) WBC [3.7-10.4 K/CMM] 1.03 mMol/L *LOW* (04/30/19 5:18 PM) Ca Ion WB [1.05-1.25 mMol/L] 1.03 mMol/L *LOW* (04/30/19 5:18 PM) Ca Norm WB [1.05-1.25 mMol/L] 1Result Comment: The eGFR is calculated using [...] be mul tiplied by the estimated BMI. 3Result Comment: The eGFR is calculated using the [...] no reaction 2Result Comment: fluzone high dose [[id number]]. Migrated from OBS ; Data migrated from [employer] on 06/28/2015. 3Result Comment: fluzone (>3 yrs.) [[id number]]. Migrated from OBS ; Data migrated from [employer] on 06/28/2015. 4Result Comment: pneumovax 23 [cvx33]. Migrated from OBS VIS: Pneumovax 23: 03/01/09 ; Data migrated from [employer] on 06/28/2015. Procedures Procedure Date Related Diagnosis [...] Smoking Cessation Counseling No entered on: 04/30/19 Assessment and Plan Extracted from: Title: History and Physical Author: Jose Olson MD Date: 04/30/19 73 yo F w/ severe ,diastolic HF, Mod TR, massive right atrium, s/p SJM PPM. s/p #27 mm SJM Mechanical MVR by DR. 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 STS PROM score was 5.6 being treated s/p TAVR. #Severe s/p TAVR w/ sing June 3 bioprostheitc valve -Usual post-TAVR care per standard pro tocol, including intravenous hydration to prevent contrast induced nephropathy. - Restarting home warfarin 12/5 PM - DANNY s/p TAVR - Procedure results: - AV gradient mean: 61.6 -->2mmHg - Aortic valve area: 0.78 -->>4cm2 -Continue jeison-procedural IV antibioti cs prophylaxis. - Aspirin 81 mg daily indefinitely - Cardiac rehabilitation after hospital discharge. #Diastolic HF #CVA with hand weakness #T2DM #HTN #HLD - On metforminand 30 insulin daily at home, 15 daily of insulin + SSI inpatient - Restarting other home meds DVT: Resume home warfarin and lovenox bridge GI: Daily omeprazole Home tomorrow pending stable overnight Addendum by Enmanuel Bo Attending Attestation: I reza ve seen the patient in collaboration with the house staff MD on (resident and/or fellow). I have examined the patient independently, and have reviewed 04/30/2019 the history, radiographic a nd cardiac imaging, and diagnostic testing. I agree with the 21:47 STORE MERCHANDISER findings and plan outlined in the note by the resident/fellow. Extracted from: Title: Clinical Document Author: Jovany Donnelly MD Da te: 04/30/19 SURGEONCo-Surgeon DATE OF OPERATION April 30, 2019 Isabella Donnelly M.D. Isabella Coelho M.D. PREOPERATIVE DIAGNOSIS:1. Severe Aortic Stenosis 2. Moderate Tricuspid Regurgitation 3. Severe Mitral Regurgitation 4. S/P Mechanical MVR #27 SJM, 04/23/12 5. Coumadin Regimen 6. Hypertension 7. Hyperlipidemia 8. pAF 9. CVA 2008 with residual left hand weak ness 10. Anemia 11. Hemoglobin 8.3 12. Diabetes Mellitus 13. Metformin and Lantus Regimen 14. FEV1 57% 15. Congestive heart failure, systolic, chronic NYHA class [III] 16. STS 5.6% (high risk) POSTOPERATIVE DIAGNOSIS:same NAME OF PROCEDURE:1. Transcatheter aortic valve replacement (TAVR) utilizing a #26 Hsieh June S3 pericardial valve via right groin 2.Percutaneous access of the right and l eft common femoral artery 3.Percutaneous access of the right and l eft common femoral vein 4.Serial dilatation of the right common femoral artery for the 14 Bulgarian introducer FINDINGS AT THE TIME OF SURGERY: 1. Severe calcifications in the aortic valve. 2. The 14 Bulgarian delivery system was pas sed with no difficulty through the right common iliac artery into the left ventricular outflow tract for deployment. (Nominal: 7.5 Ivan) 3. Post replacement TTE revealed no para valvular leak. 4. Post deployment aortogram revealed no issues with access vessels. INDICATIONS: The risk and benefits were explained to the patient. She understands these risks and agrees to proceed with surgical intervention. The patient was seen by myself, and Dr. Coelho and deemed high risk for conventional AVR. PROCEDURE IN DETAIL: Further details will be dictated by Dr. Coelho as he was the [employer] production line. The patient was brought into the cardiac production laborer. A time-out procedure was performed which confirmed the patient s name, MRN, and procedure to be performed. [...]
--- OUTSIDE RECORDS SUMMARY | 2019-12-25 20:49 | XMS REPORT | Summary of Care ---
Author Author [facility] Organization [facility] Address Unknown Phone Unavailable Encounter CONTRERAS Gray(FIN) [id number] Date(s): 12/10/18 - 12/10/18 [facility] [address] [address]- Discharge Disposition: Home or Self Care Attending Physician: Mohini Dee MD Vital Signs Most recent to 1 oldest [Reference Range]: Height 160.02 cm (12/10/18 11:10 AM) Temperature Oral 97.4 DegF [96.4-99.1 DegF] (12/10/18 11:10 AM) Blood Pressure 114/70 mmHg [90-140/60-90 mmHg] (12/10/18 11:10 AM) Respiratory Rate 14 BRMIN [14-20 BRMIN] (12/10/18 11:10 AM) Peripheral Pulse 60 bpm Rate [60-100 bpm] (12/10/18 11:10 AM) Weight 60 kg (12/10/18 11:10 AM) Body Mass Index 23.43 m2 (12/10/18 11:10 AM) Problem List Condition Effective Dates Status [...] 01/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)1 1 Hyperlipemia, Active mixed(Confirmed) [id number] 03/09/14 Active Osteoarthritis(Confi Active rmed) Postmenopausal 09/01/13 Active state13 Screening - health 08/17/14 Resolved check14, 15 Type 2 diabetes 05/27/59 Active mellitus(Confirmed)1 6 Urinary 03/03/13 Active [id number] Urinary tract 04/28/14 Resolved infectious On warfarin [...] Reaction Severity Status NKFA Active Medications No Known Medications Results No data available for this section Immunizations Given and Recorded Vaccine Date Status Refusal Reason influenza virus vaccine, inactivated 02/18/18 G iven influenza virus vaccine, inactivated1 04/03/17 Given influenza virus vaccine, inactivated 10/6/16 G iven influenza virus vaccine, inactivated2 03/09/14 Given influenza virus vaccine, inactivated3 03/03/13 Given influenza virus vaccine, inactivated 07/09/08 G iven pneumococcal 23-valent vaccine4 09/01/13 Given Not Given Vaccine Date Status Refusal Reason pneumococcal 13-valent vaccine 02/26/18 Not Given Patient Refuses 1Result Comment: Patient waited 15 min with no reaction 2Result Comment: fluzone high dose [[id number]]. Migrated from OBS ; Data migrated from [employer] on 06/28/2015. 3Result Comment: fluzone (>3 yrs.) [[id number]]. Migrated from OBS ; Data migrated from [employer] on 06/28/2015. 4Result Comment: pneumovax 23 [cvx33]. Migrated from OBS VIS: Pneumovax 23: 03/01/09 ; Data migrated from [employer] on 06/28/2015. Procedures Procedure Date Related Diagnosis Body Site Status Diabetic retinopathy screening1 02/08/17 Comple pita Mitral valve operation2 2011 Completed Cardiac pacemaker procedure Completed Cholecystectomy Completed Operation on uterus3 Completed 1Barcacel, OD 2replacement at [facility] 3tumor removed Social History Social History Type Response Substance Abuse Use: None. Alcohol Never Smoking Status Never smoker; Exposure to T obacco Smoke None; Cigarette Smoking Last 365 Days Yes; Reg Smoking Cessation Chip Mucker ing No entered on: 12/10/18 Assessment and Plan No data available for this section
--- OUTSIDE RECORDS SUMMARY | 2019-12-25 20:49 | XMS REPORT | Summary of Care ---
Author Author [facility] Organization [facility] Address Unknown Phone Unavailable Encounter CONTRERAS Gray(FIN) [id number] Date(s): 05/02/18 - 05/02/18 [facility] [address] [address]- Discharge Disposition: Home or Self Care Attending Physician: Mohini Dee MD Vital Signs Most recent to 1 oldest [Reference Range]: Height 160.02 cm (05/02/18 10:05 AM) Temperature Oral 98.3 DegF [96.4-99.1 DegF] (05/02/18 10:05 AM) Blood Pressure 142/70 mmHg [90-140/60-90 mmHg] *HI* (05/02/18 10:05 AM) Respiratory Rate 14 BRMIN [14-20 BRMIN] (05/02/18 10:05 AM) Peripheral Pulse 68 bpm Rate [60-100 bpm] (05/02/18 10:05 AM) Weight 62.955 kg (05/02/18 10:05 AM) Body Mass Index 24.59 m2 (05/02/18 10:05 AM) Problem List Condition Effective Dates Status [...] 01/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)1 1 Hyperlipemia, Active mixed(Confirmed) [id number] 03/09/14 Active Osteoarthritis(Confi Active rmed) Postmenopausal 09/01/13 Active state13 Screening - health 08/17/14 Resolved check14, 15 Type 2 diabetes 05/27/59 Active mellitus(Confirmed)1 6 Urinary 03/03/13 Active [id number] Urinary tract 04/28/14 Resolved infectious [id number] On warfarin Active therapy(Confirmed) 1Data migrated from [...] Reactions, Alerts No Known Medication Allergies Medications nitroglycerin 0.4 mg sublingual tablet See Instructions, # 50 tab, Refill(s) 1, PLACE 1 TAB UNDER TONGUE EVER 5 MINUTES X 3 DOSES FOR CHEST PAIN IF NO IMPROVEMENT SEEK MEDICAL ATT., Pharmacy: [facility][id number] Start Date: 05/29/18 Stop Date: 11/08/18 Status: Completed nitroglycerin 0.4 mg sublingual tablet See Instructions, # 50 tab, Refill(s) 1, PLACE 1 TAB UNDER TONGUE EVER 5 MINUTES X 3 DOSES FOR CHEST PAIN IF NO IMPROVEMENT SEEK MEDICAL ATT., Pharmacy: [id number] Start Date: 11/08/18 Status: Ordered ofloxacin otic 0.3% solution 5 drp, RIGHT EAR, BID, # 10 mL, 0 Refill(s), Pharmacy: [facility]/pharmacy #[id number] Start Date: 05/02/18 Stop Date: 05/02/19 Status: Ordered Results No data available for [...] no reaction 2Result Comment: fluzone high dose [[id number]]. Migrated from OBS ; Data migrated from [employer] on 06/28/2015. 3Result Comment: fluzone (>3 yrs.) [[id number]]. Migrated from OBS ; Data migrated from [employer] on 06/28/2015. 4Result Comment: pneumovax 23 [cvx33]. Migrated from OBS VIS: Pneumovax 23: 03/01/09 ; Data migrated from [employer] on 06/28/2015. Procedures Procedure Date Related Diagnosis Body Site Status Diabetic retinopathy screening1 02/08/17 Comple pita Mitral valve operation2 2011 Completed Cardiac pacemaker procedure Completed Cholecystectomy Completed Operation on uterus3 Completed 1Barcacel, OD 2replacement at [facility] 3tumor removed Social History Social History Type Response Substance Abuse Use: None. Alcohol Never Smoking Status Never smoker; Exposure to T obacco Smoke None; Cigarette Smoking Last 365 Days Yes; Reg Smoking Cessation [employer] Worker ing No entered on: 09/03/18 Assessment and Plan No data available for this section
--- OUTSIDE RECORDS SUMMARY | 2019-12-25 20:50 | XMS REPORT | Summary of Care ---
Author Organization Unknown Address Unknown Phone Unavailable Encounter HQ Isaac(LAN) [id number] Date(s): 11/28/14 - 12/01/14 [facility] [address] [place] [address]- [phone] Final: Discharge Disposition: Home Physician Attending: Dave Foster MD Physician Admitting: Dave Foster MD Vital Signs 1 2 3 Most recent to oldest [Reference Range]: 162.56 cm (11/29/14 2:04 AM) Height 97.7 DegF (12/01/14 12:00 PM) 98.5 DegF (12/01/14 8:00 AM) 98.4 DegF (12/01/14 4:00 AM) Temperature Oral [96.4-99.1 DegF] 97/59 mmHg (12/01/14 12:00 PM) 113/65 mmHg (12/01/14 8:00 AM) 106/67 mmHg (12/01/14 4:00 AM) Blood Pressure [90-140/60-90 mmHg] 18 BRMIN (12/01/14 12:00 PM) 18 BRMIN (12/01/14 8:00 AM) 18 BRMIN (12/01/14 4:00 AM) Respiratory Rate [14-20 BRMIN] 60 bpm (12/01/14 12:00 PM) 63 bpm (12/01/14 8:00 AM) 65 bpm (12/01/14 4:00 AM) Peripheral Pulse Rate [60-100 bpm] 61.619 kg (11/29/14 2:04 AM) 68.182 kg (11/28/14 5:06 PM) Weight 23.32 m2 (11/29/14 2:04 AM) Body Mass Index Problem List Condition Effective Dates Status Health Status Informan t Anemia1 01/04/14 Active Anemia(Confirmed) Resolved Atrial fibrillation2 01/20/13 Active Atrial Resolved fibrillation(Confirm ed) CVA (cerebral Resolved vascular accident)(Confirmed) Diabetes(Confirmed) Resolved Essential 05/27/59 Active hypertension3 H/O: CVA4 05/27/59 Active Hyperlipidemia5 05/27/59 Active Hyperlipidemia(Confi Resolved rmed) Hypertension(Confirm Resolved ed) Insomnia6 03/09/14 Active Insomnia(Confirmed) Resolved Left hemiparesis7 04/28/14 Active Major depressive 03/09/14 Active disorder8 Mitral valve 01/20/13 Active stenosis9 [id number] 03/09/14 Active Osteoarthritis(Confi Resolved rmed) Postmenopausal 09/01/13 Active state11 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 2Data migrated from [employer] on 10/23/14. 3Data migrated from [employer] on 10/23/14. 4Data migrated from [employer] on 10/23/14. 5Data migrated from [employer] on 10/23/14. 6Data migrated from [employer] on 10/23/14. 7Data migrated from [employer] on 10/23/14. 8Data migrated from [employer] on 10/23/14. 9Data migrated from [employer] on 10/23/14. 10Data migrated from [employer] on 10/23/14. 11Data migrated from [employer] on 10/23/14. 12Data migrated from [employer] on 10/23/14. 13Data migrated from [employer] on 12/01/14. 14Data migrated from [employer] on 10/26/14. 15Data migrated from [employer] on 10/23/14. 16Data migrated from [employer] on 10/23/14. 17Data migrated from [employer] on 10/23/14. Allergies, Adverse Reactions, Alerts Substance Reaction Severity Status NKDA Active Medications acetaminophen 650 mg, Route: PO, Drug form: TAB, ONCE, Dosing Weight 68.182, kg, Priority: STA T, Start date: 11/28/14 18:57:00, Stop date: 11/28/14 18:57:00 Start Date: 11/28/14 Stop Date: 11/28/14 Status: Completed aspirin 325 mg, Route: PO, Drug form: ECTAB, ONCE, Dosing Weight 68.182, kg, Priority: S TAT, Start date: 11/28/14 18:51:00, Stop date: 11/28/14 18:51:00 Start Date: 11/28/14 Stop Date: 11/28/14 Status: Completed aspirin 81 mg tablet, enteric coated 81 mg = 1 tab, PO, Daily, with food, # 90 tab, 3 Refill(s) Special Instructions: with food Start Date: 11/28/14 Status: Ordered aspirin 81 mg tablet, enteric coated 81 mg, 1 tab, Route: PO, Drug form: ECTAB, Daily, Dosing Weight 61.619, kg, Star t date: 11/29/14 17:00:00, Duration: 30 day, Stop date: 12/29/14 9:00:00 Notes: Do not crush or chew.(Same As: Ecotrin) Start Date: 11/29/14 Stop Date: 12/01/14 Status: Discontinued atorvastatin 20 mg, 2 tab, Route: PO, Drug form: TAB, Bedtime, Dosing Weight 61.619, kg, Star t date: 11/29/14 21:00:00, Duration: 30 day, Stop date: 12/28/14 21:00:00 Notes: (Same As: Lipitor) Start Date: 11/29/14 Stop Date: 12/01/14 Status: Discontinued atorvastatin 20 mg oral tablet 20 mg = 1 tab, PO, Bedtime, takes with milk, # 30 tab, 0 Refill(s) Special Instructions: takes with milk Start Date: 11/28/14 Status: Ordered atropine 0.5 mg, 5 mL, Route: IVP, Drug form: INJ, PRN, PRN Bradycardia, Start date: 11/08 1:56:00, Duration: 30 day, Stop date: 12/29/14 1:55:00 Start Date: 11/29/14 Stop Date: 12/01/14 Status: Discontinued codeine-guaiFENesin 5 mL, Route: PO, Drug Form: LIQ, Q4H, PRN Cough, Start date: 11/29/14 15:00:00, Duration: 30 day, Stop date: 12/29/14 14:59:00 Notes: (Same As: Vikkisin JO) Start Date: 11/29/14 Stop Date: 12/01/14 Status: Discontinued codeine-guaiFENesin 5 mL, Route: PO, Drug Form: LIQ, ONCE, Start date: 11/29/14 10:54:00, Stop date: 11/29/14 10:54:00 Notes: (Same As: Vikkisin AC) Start Date: 11/29/14 Stop Date: 11/29/14 Status: Completed Dextrose 50% Syringe 25 gm, 50 mL, Route: IVP, Drug Form: INJ, Dosing Weight 68.182, kg, PRN, PRN Blo od Glucose Results, Start date: 11/29/14 2:03:00, Duration: 30 day, Stop date: 0 12/29/14 2:02:00 Start Date: 11/29/14 Stop Date: 12/01/14 Status: Discontinued Dextrose 50% Syringe 12.5 gm, 25 mL, Route: IVP, Drug Form: INJ, Dosing Weight 68.182, kg, PRN, PRN B lood Glucose Results, Start date: 11/29/14 2:03:00, Duration: 30 day, Stop date: 12/29/14 2:02:00 Start Date: 11/29/14 Stop Date: 12/01/14 Status: Discontinued digoxin 125 mcg (0.125 mg) oral tablet 125 microgram, 1 tab, Route: PO, Drug form: TAB, Daily, Dosing Weight 61.619, kg , Start date: 11/30/14 6:30:00, Duration: 30 day, Stop date: 12/29/14 6:30:00 Notes: Take on an Empty Stomach (Same as: Lanoxin) Start Date: 11/30/14 Stop Date: 12/01/14 Status: Discontinued digoxin 125 mcg (0.125 mg) oral tablet 125 microgram = 1 tab, PO, Daily, takes with milk to prevent stomach upset, # 30 tab, 0 Refill(s) Special Instructions: takes with milk to prevent stomach upset Start Date: 11/28/14 Status: Ordered escitalopram 10 mg, 1 tab, Route: PO, Drug form: TAB, Daily, Dosing Weight 61.619, kg, Start date: 11/30/14 9:00:00, Duration: 30 day, Stop date: 12/29/14 9:00:00 Notes: (Same as: Lexapro) Start Date: 11/30/14 Stop Date: 12/01/14 Status: Discontinued escitalopram 10 mg oral tablet 10 mg = 1 tab, PO, Daily, takes with milk, # 30 tab, 0 Refill(s) Special Instructions: takes with milk Start Date: 11/28/14 Status: Ordered furosemide 40 mg oral tablet 40 mg, 1 tab, Route: PO, Drug form: TAB, Daily, Dosing Weight 61.619, kg, Start date: 12/02/14 9:00:00, Duration: 30 day, Stop date: 12/31/14 9:00:00 Notes: (Same as: Lasix) May cause GI upset. Give with food or milk. Start Date: 12/02/14 Stop Date: 12/01/14 Status: Canceled furosemide 40 mg oral tablet 40 mg = 1 tab, PO, Daily, takes with milk, # 30 tab, 0 Refill(s) Special Instructions: takes with milk Start Date: 11/28/14 Status: Ordered glucagon 1 mg, Route: IM, Drug form: PDR/INJ, PRN, Dosing Weight 68.182, kg, PRN Blood Gl ucose Results, Start date: 11/29/14 2:03:00, Duration: 30 day, Stop date: 2:02:00 Start Date: 11/29/14 Stop Date: 12/01/14 Status: Discontinued insulin aspart 10 unit, 0.1 mL, Route: SUB-Q, Drug form: SOLN, TID-Before Meals, Dosing Weight 68.182, kg, PRN Blood Glucose Results, Start date: 11/29/14 2:03:00, Duration: 3 0 day, Stop date: 12/29/14 2:02:00 Notes: Roll in palms of hands gently; Do not shake vigorously. (Same as: NovoLO G)"single patient use only" Stable for 28 days at room temperature.Expires in _ ____ days from Date Start Date: 11/29/14 Stop Date: 12/01/14 Status: Discontinued insulin aspart 4 unit, 0.04 mL, Route: SUB-Q, Drug form: SOLN, TID-Before Meals, Dosing Weight 68.182, kg, PRN Blood Glucose Results, Start date: 11/29/14 2:03:00, Duration: 3 0 day, Stop date: 12/29/14 2:02:00 Notes: Roll in palms of hands gently; Do not shake vigorously. (Same as: NovoLO G)"single patient use only" Stable for 28 days at room temperature.Expires in _ ____ days from Date Start Date: 11/29/14 Stop Date: 12/01/14 Status: Discontinued insulin aspart 6 unit, 0.06 mL, Route: SUB-Q, Drug form: SOLN, TID-Before Meals, Dosing Weight 68.182, kg, PRN Blood Glucose Results, Start date: 11/29/14 2:03:00, Duration: 3 0 day, Stop date: 12/29/14 2:02:00 Notes: Roll in palms of hands gently; Do not shake vigorously. (Same as: NovoLO G)"single patient use only" Stable for 28 days at room temperature.Expires in _ ____ days from Date Start Date: 11/29/14 Stop Date: 12/01/14 Status: Discontinued insulin aspart 2 unit, 0.02 mL, Route: SUB-Q, Drug form: SOLN, TID-Before Meals, Dosing Weight 68.182, kg, PRN Blood Glucose Results, Start date: 11/29/14 2:03:00, Duration: 3 0 day, Stop date: 12/29/14 2:02:00 Notes: Roll in palms of hands gently; Do not shake vigorously. (Same as: NovoLO G)"single patient use only" Stable for 28 days at room temperature.Expires in _ ____ days from Date Start Date: 11/29/14 Stop Date: 12/01/14 Status: Discontinued insulin aspart 8 unit, 0.08 mL, Route: SUB-Q, Drug form: SOLN, TID-Before Meals, Dosing Weight 68.182, kg, PRN Blood Glucose Results, Start date: 11/29/14 2:03:00, Duration: 3 0 day, Stop date: 12/29/14 2:02:00 Notes: Roll in palms of hands gently; Do not shake vigorously. (Same as: Brian Baird)"single patient use only" Stable for 28 days at room temperature.Expires in _ ____ days from Date Start Date: 11/29/14 Stop Date: 12/01/14 Status: Discontinued insulin glargine 30 unit, Route: SUB-Q, Drug form: SOLN, Bedtime, Dosing Weight 61.619, kg, Start date: 11/29/14 21:00:00, Duration: 30 day, Stop date: 12/28/14 21:00:00 Start Date: 11/29/14 Stop Date: 11/29/14 Status: Deleted ketOROLAC ophthalmic 0.5% solution 1 drp, Route: RIGHT EYE, QID, Drug form: SOLN, Start date: 11/29/14 13:00:00, Du ration: 4 day, Stop date: 12/03/14 9:00:00 Notes: (Same as:Acular) For ophthalmic use. Start Date: 11/29/14 Stop Date: 12/01/14 Status: Discontinued ketOROLAC ophthalmic 0.5% solution 1 drp, RIGHT EYE, QID, # 5 ml, 0 Refill(s) Start Date: 11/28/14 Stop Date: 12/05/14 Status: Ordered Lantus Solostar Pen 100 units/mL subcutaneous solution 30 unit, SUB-Q, Bedtime, # 1 pen(s), 3 Refill(s) Start Date: 11/28/14 Status: Ordered Lasix 40 mg, 4 mL, Route: IVP, Drug form: INJ, Daily, Dosing Weight 61.619, kg, Start date: 11/29/14 10:15:00, Duration: 30 day, Stop date: 12/29/14 9:00:00 Notes: (Same as: Lasix) MEDICATION WASTE Product Size: 40 mgProduct Was pita: ___ mg Start Date: 11/29/14 Stop Date: 12/01/14 Status: Discontinued Lasix 40 mg, Route: IVP, Drug form: INJ, ONCE, Dosing Weight 68.182, kg, Priority: STA T, Start date: 11/28/14 18:50:00, Stop date: 11/28/14 18:50:00 Start Date: 11/28/14 Stop Date: 11/28/14 Status: Completed Levaquin 500 mg, Route: IVPB, [id number], Dosing Weight 61.619, kg, Start date: 11/29/14 11: 00:00, Duration: 30 day, Stop date: 12/28/14 11:00:00 Start Date: 11/29/14 Stop Date: 11/29/14 Status: Deleted Levaquin 250 mg, 50 mL, Route: IVPB, Drug form: INJ, [id number], Start date: 11/30/14 11:00: 00, Duration: 30 day, Stop date: 12/29/14 11:00:00 Notes: (Same as:Levaquin) Start Date: 11/30/14 Stop Date: 12/01/14 Status: Discontinued Levaquin 500 mg, 100 mL, Route: IVPB, Drug form: INJ, ONCE, Start date: 11/29/14 11:00:00 , Stop date: 11/29/14 11:00:00 Notes: (Same as:Levaquin) Start Date: 11/29/14 Stop Date: 11/29/14 Status: Completed Levaquin 250 mg oral tablet 250 mg = 1 tab, PO, Q24H, X 5 day, # 5 tab, 0 Refill(s) Start Date: 12/01/14 Stop Date: 12/06/14 Status: Ordered Levemir FlexPen 30 unit, 0.3 mL, Route: SUB-Q, Drug form: INJ, Bedtime, Start date: 11/29/14 21: 00:00, Duration: 30 day, Stop date: 12/28/14 21:00:00 Notes: Same as LevemirDo not hold insulin without contacting prescriber "single patient use only" Start Date: 11/29/14 Stop Date: 12/01/14 Status: Discontinued LORazepam 1 mg, 1 tab, Route: PO, Drug form: TAB, Bedtime, Dosing Weight 61.619, kg, PRN a s needed for anxiety, Start date: 11/29/14 10:07:00, Duration: 30 day, Stop date : 12/29/14 10:06:00 Notes: (Same as: Ativan) Start Date: 11/29/14 Stop Date: 12/01/14 Status: Discontinued LORazepam 1 mg oral tablet 1 mg = 1 tab, PO, Bedtime, PRN Anxiety, # 20 tab, 0 Refill(s) Start Date: 11/28/14 Stop Date: 12/05/14 Status: Ordered losartan 25 mg, 1 tab, Route: PO, Drug form: TAB, Daily, Dosing Weight 61.619, kg, Start date: 11/30/14 9:00:00, Duration: 30 day, Stop date: 12/29/14 9:00:00 Notes: (Same as: Cozaar) Start Date: 11/30/14 Stop Date: 12/01/14 Status: Discontinued losartan 25 mg oral tablet 25 mg = 1 tab, PO, Daily, takes with milk, # 30 tab, 0 Refill(s) Special Instructions: takes with milk Start Date: 11/28/14 Status: Ordered metFORMIN 1,000 mg, 2 tab, Route: PO, Drug form: TAB, BID-Meals, Dosing Weight 61.619, kg, Start date: 11/29/14 17:00:00, Duration: 30 day, Stop date: 12/29/14 8:00:00 Notes: (Same as: Glucophage) Take with meal Start Date: 11/29/14 Stop Date: 12/01/14 Status: Discontinued metFORMIN 1000 mg oral tablet 1,000 mg = 1 tab, PO, BID-Meals, with meals, # 30 tab, 0 Refill(s) Special Instructions: with meals Start Date: 11/28/14 Status: Ordered metoprolol tartrate 25 mg, 1 tab, Route: PO, Drug form: TAB, BID, Dosing Weight 61.619, kg, Start da te: 11/29/14 17:00:00, Duration: 30 day, Stop date: 12/29/14 9:00:00 Notes: (Same as: Lopressor) Start Date: 11/29/14 Stop Date: 12/01/14 Status: Discontinued metoprolol tartrate 25 mg oral tablet 25 mg = 1 tab, PO, BID, takes with milk, # 60 tab, 0 Refill(s) Special Instructions: takes with milk Start Date: 11/28/14 Status: Ordered morphine Sulfate 2 mg, 1 mL, Route: IVP, Drug form: INJ, Q4H, Dosing Weight 61.619, kg, PRN Pain Score 7-10, Start date: 11/30/14 8:08:00, Duration: 30 day, Stop date: 12/30/14 8:07:00 Notes: (Same as:MORPhine Sulfate) Start Date: 11/30/14 Stop Date: 12/01/14 Status: Discontinued Mucinex Max Strength 1,200 mg, 2 tab, Route: PO, Drug Form: ERTAB, Dosing Weight 61.619, kg, Q12H, St art date: 11/29/14 21:00:00, Duration: 30 day, Stop date: 12/29/14 9:00:00 Notes: (Same as: Guaifenesin LA, Humibid LA, Mucinex)"Do Not Crush" Take medica tion with plenty of water. Start Date: 11/29/14 Stop Date: 12/01/14 Status: Discontinued nitroglycerin SL Tab 0.4 mg, 1 tab, Route: SL, Drug form: TAB, Q5Min, Dosing Weight 68.182, kg, PRN C hest Pain, Start date: 11/29/14 0:32:00, Duration: 3 doses or times, Stop date: Limited # of times Notes: (Same as:Nitroquick, Nitrostat)"Do Not Crush" Sublingual tablet Start Date: 11/29/14 Stop Date: 12/01/14 Status: Discontinued pneumococcal 23-valent vaccine 0.5 mL, Route: IM, Daily, Start date: 11/29/14 9:00:00, Duration: 1 doses or uzma es, Stop date: 11/29/14 9:00:00 Start Date: 11/29/14 Stop Date: 11/29/14 Status: Canceled Pred Mild 0.12% ophthalmic suspension 1 drp, Route: LEFT EYE, QID, Drug form: SUSP, Start date: 11/29/14 13:00:00, Dur ation: 30 day, Stop date: 12/29/14 9:00:00 Start Date: 11/29/14 Stop Date: 11/29/14 Status: Canceled Pred Mild 0.12% ophthalmic suspension 1 drp, LEFT EYE, QID, # 10 ml, 0 Refill(s) Start Date: 11/28/14 Stop Date: 12/05/14 Status: Ordered prednisoLONE acetate ophthalmic 1% suspension 1 drp, Route: LEFT EYE, Q4H, Drug form: SUSP, Start date: 11/29/14 12:00:00, Dur ation: 30 day, Stop date: 12/29/14 8:00:00 Notes: (Same as: Pred Forte) Start Date: 11/29/14 Stop Date: 12/01/14 Status: Discontinued Saline Flush 0.9% 10 mL, Route: IVP, Drug Form: INJ, Dosing Weight 68.182, kg, PRN, PRN Line Flush , Start date: 11/28/14 18:58:00, Duration: 30 day, Stop date: 12/28/14 18:57:00 Notes: (Same as: BD Posiflush) Start Date: 11/28/14 Stop Date: 12/01/14 Status: Discontinued Tessalon Perles 100 mg, Route: PO, Drug form: CAP, TID, Dosing Weight 61.619, kg, PRN Cough, Gavi ority: NOW, Start date: 11/29/14 10:09:00, Duration: 30 day, Stop date: 12/29/14 10:08:00 Start Date: 11/29/14 Stop Date: 11/29/14 Status: Deleted tramadol 50 mg oral tablet 50 mg, 1 tab, Route: PO, Drug form: TAB, Q12H, PRN Pain Score 4-6, Start date: 0 11/29/14 10:22:00, Duration: 30 day, Stop date: 12/29/14 10:21:00 Notes: Not to exceed 400mg/day. (Same As: Ultram) Start Date: 11/29/14 Stop Date: 12/01/14 Status: Discontinued Travatan Z 0.004% ophthalmic solution 1 drp, BOTH EYES, Bedtime, # 3 ml, 0 Refill(s) Start Date: 11/28/14 Status: Ordered Travatan Z 0.004% ophthalmic solution 1 drp, Route: BOTH EYES, Drug Form: SOLN, Dosing Weight 61.619, kg, Bedtime, Sta rt date: 11/29/14 21:00:00, Duration: 30 day, Stop date: 12/28/14 21:00:00 Notes: (Same As: Travatan) Start Date: 11/29/14 Stop Date: 12/01/14 Status: Discontinued Tylenol 325 mg, 1 tab, Route: PO, Drug form: TAB, Q12H, PRN Pain Score 4-6, Start date: 11/29/14 10:21:00, Duration: 30 day, Stop date: 12/29/14 10:20:00 Notes: Do not exceed 4 gm/day. (Same as: Tylenol) Start Date: 11/29/14 Stop Date: 12/01/14 Status: Discontinued Ultracet oral tablet 1 tab, PO, Q12H, PRN Pain, takes with milk to prevent stomach upset, # 30 tab, 0 Refill(s) Special Instructions: takes with milk to prevent stomach upset Start Date: 11/28/14 Stop Date: 12/08/14 Status: Ordered Ultracet oral tablet 1 tab, Route: PO, Drug Form: TAB, Dosing Weight 61.619, kg, Q12H, PRN, Start megan e: 11/29/14 10:06:00, Duration: 30 day, Stop date: 12/29/14 10:05:00, moderate p ain Start Date: 11/29/14 Stop Date: 11/29/14 Status: Deleted warfarin 6 mg, 3 tab, Route: PO, Drug form: TAB, Q-M-W-F, Dosing Weight 61.619, kg, Start date: 11/29/14 17:00:00, Duration: 30 day, Stop date: 12/27/14 17:00:00 Notes: Nurse to ensure documentation of patient education per anticoagulation po licy.Avoid large intake of vitamin-K containing foods diet.(Same As: Coumadin) Start Date: 11/29/14 Stop Date: 12/01/14 Status: Discontinued warfarin 5 mg, 1 tab, Route: PO, Drug form: TAB, S-Mk-Fr-Sa-Thompson, Dosing Weight 61.619, kg, Start date: 11/30/14 17:00:00, Duration: 30 day, Stop date: 12/28/14 17:00:00 Notes: Nurse to ensure documentation of patient education per anticoagulation po licy.Avoid large intake of vitamin-K containing foods diet.(Same As: Coumadin) Start Date: 11/30/14 Stop Date: 12/01/14 Status: Discontinued warfarin 5 mg oral tablet 5 mg = 1 tab, PO, E-Uk-Km-Sa-Thompson, with milk, # 30 tab, 0 Refill(s) Special Instructions: with milk Start Date: 11/28/14 Status: Ordered warfarin 6 mg oral tablet 6 mg = 1 tab, PO, Q--W-F, with milk, # 30 tab, 0 Refill(s) Special Instructions: with milk Start Date: 11/28/14 Status: Ordered Results ELECTROLYTES 1 2 3 Most recent to oldest [Reference Range]: 134 mEq/L *LOW* (12/01/14 3:40 AM) 138 mEq/L (11/30/14 4:14 AM) 134 mEq/L *LOW* (11/28/14 5:56 PM) Sodium Lvl [135-145 mEq/L] 3.8 mEq/L (12/01/14 3:40 AM) 3.8 mEq/L (11/30/14 4:14 AM) 4.0 mEq/L (11/28/14 5:56 PM) Potassium Lvl [3.5-5.1 mEq/L] 99 mEq/L (12/01/14 3:40 AM) 101 mEq/L (11/30/14 4:14 AM) 99 mEq/L (11/28/14 5:56 PM) Chloride Lvl [95-109 mEq/L] 25 mEq/L (12/01/14 3:40 AM) 27 mEq/L (11/30/14 4:14 AM) 24 mEq/L (11/28/14 5:56 PM) CO2 [24-32 mEq/L] 13.8 mEq/L (12/01/14 3:40 AM) 13.8 mEq/L (11/30/14 4:14 AM) 15.0 mEq/L (11/28/14 5:56 PM) AGAP [10.0-20.0 mEq/L] CHEM PANEL 1 2 3 Most recent to oldest [Reference Range]: 1.1 mg/dL (12/01/14 3:40 AM) 1.1 mg/dL (11/30/14 4:14 AM) 1.3 mg/dL (11/28/14 5:56 PM) Creatinine Lvl [0.5-1.4 mg/dL] 51 mL/min/1.73m2 1 *NA* (12/01/14 3:40 AM) 51 mL/min/1.73m2 2 *NA* (11/30/14 4:14 AM) 42 mL/min/1.73m2 3 *NA* (11/28/14 5:56 PM) eGFR 31 mg/dL *HI* (12/01/14 3:40 AM) 28 mg/dL *HI* (11/30/14 4:14 AM) 25 mg/dL *HI* (11/28/14 5:56 PM) BUN [7-22 mg/dL] 25 (11/30/14 4:14 AM) 19 (11/28/14 5:56 PM) B/C Ratio [6-25] 135 mg/dL 4 *HI* (12/01/14 3:40 AM) 118 mg/dL 5 *HI* (11/30/14 4:14 AM) 186 mg/dL 6 *HI* (11/28/14 5:56 PM) Glucose Lvl [70-99 mg/dL] 7.4 g/dL (11/30/14 4:14 AM) 7.6 g/dL (11/28/14 5:56 PM) Total Protein [6.4-8.4 g/dL] 3.1 g/dL *LOW* (11/30/14 4:14 AM) 3.6 g/dL (11/28/14 5:56 PM) Albumin Lvl [3.5-5.0 g/dL] 4.3 g/dL *HI* (11/30/14 4:14 AM) 4.0 g/dL (11/28/14 5:56 PM) Globulin [2.0-4.0 g/dL] 0.7 (11/30/14 4:14 AM) 0.9 (11/28/14 5:56 PM) A/G Ratio [0.7-1.6] 8.6 mg/dL (12/01/14 3:40 AM) 8.6 mg/dL (11/30/14 4:14 AM) 8.8 mg/dL (11/28/14 5:56 PM) Calcium Lvl [8.5-10.5 mg/dL] 2.9 mg/dL (11/28/14 7:32 PM) Phosphorus [2.5-4.5 mg/dL] 2.0 mg/dL (11/28/14 7:32 PM) Magnesium Lvl [1.8-2.4 mg/dL] 31 unit/L (11/30/14 4:14 AM) 25 unit/L (11/28/14 5:56 PM) ALT [0-65 unit/L] 38 unit/L *HI* (11/30/14 4:14 AM) 30 unit/L (11/28/14 5:56 PM) AST [0-37 unit/L] 74 unit/L (11/30/14 4:14 AM) 72 unit/L (11/28/14 5:56 PM) Alk Phos [39-136 unit/L] 0.6 mg/dL (11/30/14 4:14 AM) 0.7 mg/dL (11/28/14 5:56 PM) Bili Total [0.2-1.3 mg/dL] 4.0 mMol/L 7 *CRIT* (11/28/14 5:56 PM) Lactic Acid Lvl [0.5-2.2 mMol/L] 0.25 ng/mL *HI* (11/29/14 10:50 AM) Procalcitonin Lvl [0.00-0.10 ng/mL] 1Result Comment: The eGFR is calculated using [...] be mul tiplied by the estimated BMI. 4Interpretive Data: Adult reference range values reflect the clinical guidelines of the [employer]. 5Interpretive Data: Adult reference range values reflect the clinical guidelines of the [place] [employer]. 6Interpretive Data: Adult reference range values reflect the clinical guidelines of the [employer]. 7Result Comment: Critical Result(s) called to Mendy Plunkett at 11/28/2014 18:46 byDB. Read back OK. CARDIAC ENZYMES 1 2 3 Most recent to oldest [Reference Range]: 300 unit/L *HI* (11/29/14 8:27 AM) 278 unit/L *HI* (11/29/14 1:25 AM) 207 unit/L *HI* (11/28/14 7:32 PM) Total CK [12-191 unit/L] 1.0 ng/mL (11/29/14 8:27 AM) 1.2 ng/mL (11/29/14 1:25 AM) 0.6 ng/mL (11/28/14 7:32 PM) CK MB [0.5-3.6 ng/mL] 0.3 (11/29/14 8:27 AM) 0.4 (11/29/14 1:25 AM) 0.3 (11/28/14 7:32 PM) CK MB Index [0.0-2.5] 0.03 ng/mL (11/29/14 8:27 AM) 0.04 ng/mL (11/29/14 1:25 AM) 0.05 ng/mL (11/28/14 7:32 PM) Troponin-I [0.00-0.40 ng/mL] 151 pg/mL 8 *HI* (11/28/14 7:32 PM) BNP [<=100 pg/mL] 8Interpretive Data: Elevated results are in line with increasing severity of congestive heart failure. Minor elevations between 100 and 300 may be seen with Myocardial Ischemia, Sodium retaining drugs, and compensated/treated heart failure. LIPIDS 1 2 3 Most recent to oldest [Reference Range]: 2.17 *LOW* (11/29/14 1:25 AM) CHD Risk [3.90-5.80] 89 mg/dL (11/29/14 1:25 AM) Chol [<=199 mg/dL] 106 mg/dL (11/29/14 1:25 AM) Trig [<=149 mg/dL] 41 mg/dL *LOW* (11/29/14 1:25 AM) HDL [>=61 mg/dL] 27 mg/dL (11/29/14 1:25 AM) LDL (Calculated) [<=99 mg/dL] 21 *NA* (11/29/14 1:25 AM) VLDL SPECIAL CHEMISTRY 1 2 3 Most recent to oldest [Reference Range]: 7.6 % *HI* (11/30/14 4:14 AM) Hgb A1C [<=5.6 %] URINE AND STOOL 1 2 3 Most recent to oldest [Reference Range]: Clear (11/28/14 8:35 PM) UA Turbidity [Clear] Ltyellow *NA* (11/28/14 8:35 PM) UA Color 5.0 (11/28/14 8:35 PM) UA pH [5.0-8.0] 1.009 (11/28/14 8:35 PM) UA Spec Grav [<=1.030] Negative mg/dL *NA* (11/28/14 8:35 PM) UA Glucose [Negative mg/dL] Negative (11/28/14 8:35 PM) UA Blood [Negative] Negative mg/dL *NA* (11/28/14 8:35 PM) UA Ketones [Negative mg/dL] Negative mg/dL (11/28/14 8:35 PM) UA Protein [Negative mg/dL] <=1.0 mg/dL *NA* (11/28/14 8:35 PM) UA Urobilinogen [0.1-1.0 mg/dL] Negative *NA* (11/28/14 8:35 PM) UA Bili [Negative] Trace *ABN* (11/28/14 8:35 PM) UA Leuk Est [Negative] Negative (11/28/14 8:35 PM) UA Nitrite [Negative] <1 /HPF (11/28/14 8:35 PM) UA WBC [0-5 /HPF] Occasional /HPF *NA* (11/28/14 8:35 PM) UA Bacteria [None Seen /HPF] Occasional /LPF *NA* (11/28/14 8:35 PM) UA Sq Epi [Few /LPF] Few /LPF *NA* (11/28/14 8:35 PM) UA Mucus [None Seen /LPF] HEMATOLOGY 1 2 3 Most recent to oldest [Reference Range]: 6.4 K/CMM (12/01/14 3:40 AM) 5.7 K/CMM (11/30/14 4:14 AM) 4.9 K/CMM (11/28/14 5:56 PM) WBC [3.7-10.4 K/CMM] 3.76 M/CMM *LOW* (12/01/14 3:40 AM) 4.11 M/CMM *LOW* (11/30/14 4:14 AM) 3.80 M/CMM *LOW* (11/28/14 5:56 PM) RBC [4.20-5.40 M/CMM] 9.5 g/dL *LOW* (12/01/14 3:40 AM) 10.4 g/dL *LOW* (11/30/14 4:14 AM) 9.7 g/dL *LOW* (11/28/14 5:56 PM) Hgb [12.0-16.0 g/dL] 28.5 % *LOW* (12/01/14 3:40 AM) 31.3 % *LOW* (11/30/14 4:14 AM) 29.0 % *LOW* (11/28/14 5:56 PM) Hct [36.0-48.0 %] 75.7 fL *LOW* (12/01/14 3:40 AM) 76.2 fL *LOW* (11/30/14 4:14 AM) 76.4 fL *LOW* (11/28/14 5:56 PM) MCV [80.0-98.0 fL] 25.2 pg *LOW* (12/01/14 3:40 AM) 25.3 pg *LOW* (11/30/14 4:14 AM) 25.6 pg *LOW* (11/28/14 5:56 PM) MCH [27.0-31.0 pg] 33.3 g/dL (12/01/14 3:40 AM) 33.2 g/dL (11/30/14 4:14 AM) 33.5 g/dL (11/28/14 5:56 PM) MCHC [32.0-36.0 g/dL] 17.9 % *HI* (12/01/14 3:40 AM) 17.9 % *HI* (11/30/14 4:14 AM) 18.1 % *HI* (11/28/14 5:56 PM) RDW [11.5-14.5 %] 141 K/CMM (12/01/14 3:40 AM) 126 K/CMM *LOW* (11/30/14 4:14 AM) 123 K/CMM *LOW* (11/28/14 5:56 PM) Platelet [133-450 K/CMM] 8.8 fL (12/01/14 3:40 AM) 9.0 fL (11/30/14 4:14 AM) 9.4 fL (11/28/14 5:56 PM) MPV [7.4-10.4 fL] 63.1 % (12/01/14 3:40 AM) 61.9 % (11/30/14 4:14 AM) 74.8 % (11/28/14 5:56 PM) Segs [45.0-75.0 %] 25.5 % (12/01/14 3:40 AM) 23.3 % (11/30/14 4:14 AM) 13.2 % *LOW* (11/28/14 5:56 PM) Lymphocytes [20.0-40.0 %] 8.0 % (12/01/14 3:40 AM) 11.3 % (11/30/14 4:14 AM) 11.1 % (11/28/14 5:56 PM) Monocytes [2.0-12.0 %] 3.1 % (12/01/14 3:40 AM) 3.1 % (11/30/14 4:14 AM) 0.5 % (11/28/14 5:56 PM) Eosinophils [0.0-4.0 %] 0.3 % (12/01/14 3:40 AM) 0.4 % (11/30/14 4:14 AM) 0.4 % (11/28/14 5:56 PM) Basophils [0.0-1.0 %] 4.0 K/CMM (12/01/14 3:40 AM) 3.5 K/CMM (11/30/14 4:14 AM) 3.6 K/CMM (11/28/14 5:56 PM) Segs-Bands # [1.5-8.1 K/CMM] 1.6 K/CMM (12/01/14 3:40 AM) 1.3 K/CMM (11/30/14 4:14 AM) 0.6 K/CMM *LOW* (11/28/14 5:56 PM) Lymphocytes # [1.0-5.5 K/CMM] 0.5 K/CMM (12/01/14 3:40 AM) 0.6 K/CMM (11/30/14 4:14 AM) 0.5 K/CMM (11/28/14 5:56 PM) Monocytes # [0.0-0.8 K/CMM] 0.2 K/CMM (12/01/14 3:40 AM) 0.2 K/CMM (11/30/14 4:14 AM) Eosinophils # [0.0-0.5 K/CMM] 1+ *ABN* (12/01/14 3:40 AM) 1+ *ABN* (11/30/14 4:14 AM) 1+ *ABN* (11/28/14 5:56 PM) Microcyte [None Seen] 29.4 seconds *HI* (12/01/14 3:40 AM) 28.0 seconds *HI* (11/30/14 4:14 AM) 27.6 seconds *HI* (11/29/14 10:50 AM) PT [12.0-14.7 seconds] 2.68 9 *HI* (12/01/14 3:40 AM) 2.52 10 *HI* (11/30/14 4:14 AM) 2.48 11 *HI* (11/29/14 10:50 AM) INR [0.85-1.17] 69.0 seconds 12 *HI* (11/28/14 7:32 PM) PTT [22.9-35.8 seconds] 9Interpretive Data: RECOMMENDED RANGES FOR PROTIME INR: 2.0-3.0 for most medical and surgical thromboembolic states. 2.5-3.5 for artificial heart valves and recurrent embolism. INR SHOULD BE USED ONLY FOR PATIENTS ON STABLE ANTICOAGULANT THERAPY. 10Interpretive Data: RECOMMENDED RANGES FOR PROTIME INR: 2.0-3.0 for most medical and surgical thromboembolic states. 2.5-3.5 for artificial heart valves and recurrent embolism. INR SHOULD BE USED ONLY FOR PATIENTS ON STABLE ANTICOAGULANT THERAPY. 11Interpretive Data: RECOMMENDED RANGES FOR PROTIME INR: 2.0-3.0 for most medical and surgical thromboembolic states. 2.5-3.5 for artificial heart valves and recurrent embolism. INR SHOULD BE USED ONLY FOR PATIENTS ON STABLE ANTICOAGULANT THERAPY. 12Interpretive Data: Heparin Therapeutic Range: 57 - 92 Seconds Immunizations Vaccine Date Refusal Reason influenza virus vaccine, inactivated 07/09/08 Procedures No data available for this section Social History Social History Type Response Substance Abuse Use: None. 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 no chest pain no sob. + cough OBJECTIVE: Vital Signs (last 24 hrs) Last Charted Temp Oral97.7 DegF (DEC 01 12:00) Heart Rate Iheyxdtbey41 bpm (DEC 01 12:00) Resp Rate 18 BRMIN (DEC 01 12:00) SBP97 mmHg (DEC 01 12:00) DBPL 59mmHg (DEC 01:00) Medications: Scheduled Meds (16):aspirin (aspirin 81 mg [...] None Labs (Last four charted values) WBC 6.4(DEC 01)5.7(NOV 30)4.9(NOV 28) Hgb L 9.5(DEC 01)L 10.4(NOV 30)L 9.7(NOV 28) Hct L 28.5(DEC 01)L 31.3(NOV 30)L 29.0(NOV 28) Plt 141(DEC 01)L 126(NOV 30)L 123(NOV 28) Na L 134(DEC 01)138(NOV 30)L 134(NOV 28) K 3.8(DEC 01)3.8(NOV 30)4.0(NOV 28) CO2 25(DEC 01)27(NOV 30)24(NOV 28) Cl 99(DEC 01)101(NOV 30)99(NOV 28) Cr 1.1(DEC 01)1.1(NOV 30)1.3(NOV 28) BUN H 31(DEC 01)H 28(NOV 30)H 25(NOV 28) Glucose Random H 135(DEC 01)H 118(NOV 30)H 186(NOV 28) Mg 2.0(NOV 28) Phos 2.9(NOV 28) Ca 8.6(DEC 01)8.6(NOV 30)8.8(NOV 28) PT H 29.4(DEC 01)H 28.0(NOV 30)H 27.6(NOV 29)H 26.0(NOV 28) INR H 2.68(DEC 01)H 2.52(NOV 30)H 2.48(NOV 29)H 2.30(NOV 28) PTT H 69.0(NOV 28) Troponin 0.03(NOV 29)0.04(NOV 29)0.05(NOV 28) CK MB 1.0(NOV 29)1.2(NOV 29)0.6(NOV 28) Total CK H 300(NOV 29)H 278(NOV 29)H 207(NOV 28) EXAM: HEENT: nc/at, eomi Neck: no [...] in a few days. she is to dc home today. Plan of care discussed with patient and nursing.
--- OUTSIDE RECORDS SUMMARY | 2019-12-25 20:51 | XMS REPORT | Summary of Care ---
Author Author KAREN Clark Organization Unknown Address [facility] Phone Unavailable Care Team Providers Care Steel Division Supervisor Name Role Phone Cari Clark Unavailable Unavailable JAMEY Naranjo, MOISES Unavailable Unavailable ROSE MARIE TYLER, BLAKE Unavailable Unavailable Meliton TYLER, Anthony Unavailable Unavailable Unavailable Unavailable Functional Status Name Dates Details Functional status health issues are not documented Status: Name Dates Details Cognitive status health issues are not d ocumented Status: Problems Name Dates Details Aortic stenosis (424.1, I35.0) Status: Active History of mitral valve replacement with mechanical valve (V43.3, Z95.2) Status: Active S/P TAVR (transcatheter aortic valve rep lacement) (V43.3, Z95.2) Status: Active Medications Name Dates Details Travatan Z SOLN Active Nitroglycerin 0.4 MG Sublingual Tablet Sublingual DISSOLVE 1 TABLET UNDER THE TONGUE NEEDED FOR CHEST PAIN. * Refills: 0 Active Furosemide 40 MG Oral Tablet TAKE 1 TABLET DAILY. * Refills: 0 Active Warfarin Sodium 1 MG Oral Tablet TAKE 1 TABLET DAILY. * Refills: 0 Active Warfarin Sodium 5 MG Oral Tablet TAKE 1 TABLET DAILY. * Refills: 0 Active Omeprazole 40 MG Oral Capsule Delayed Release TAKE 1 CAPSULE DAILY * Refills: 0 Active metFORMIN HCl - 1000 MG Oral Tablet TAKE 1 TABLET DAILY WITH FOOD. * Refills: 0 Active Aspirin 81 MG Oral Tablet Delayed Release TAKE 1 TABLET DAILY. * Refills: 0 Active Escitalopram Oxalate 10 MG Oral Tablet TAKE 1 TABLET DAILY. * Refills: 0 Active Losartan Potassium 25 MG Oral Tablet TAKE 1 TABLET DAILY. * Refills: 0 Active 30 Tablet Pack Digoxin 125 MCG Oral Tablet TAKE 1 TABLET DAILY. * Refills: 0 Active Metoprolol Tartrate 25 MG Oral Tablet TAKE 1 TABLET TWICE DAILY. * Refills: 0 Active Ferrous Sulfate 325 (65 Fe) MG Oral Tablet TAKE 1 TABLET TWICE DAILY. * Refills: 0 Active Atorvastatin Calcium 20 MG Oral Tablet TAKE 1 TABLET DAILY. * Refills: 0 Active Calcium 600+D3 TABS * Refills: 0 Active Enoxaparin Sodium 60 MG/0.6ML Subcutaneous Solution inject 60mg twice daily starting 5 days prior to procedure. * Quantity: 10 Refills: 0 JAMEY Naranjo MOISES * Start : 20-Mar-2019 Active 0.6 ML Syringe Allergies and Adverse Reactions Name Dates Details No Known Drug Allergies (Allergy) Status : Active Procedures Procedure Dates Details Complete PFTs w/DLCO and Lung Volumes Date: 20-Mar-2019 [N] 2D Echo complete, with Doppler [id number] Date: 30-Apr-2019 [N] 2D Echo complete, with Doppler [id number] Date: 15-Mar-2019 CTA Chest/Abd/Pelvis TAVR [id number] Date: 20-Mar-2019 CTA Heart/Coronary art TAVR [id number] Date: 20-Mar-2019 Immunization Name Dates Details Immunizations not documented Social History Name Dates Details Unknown if ever smoked Vital Signs Date Test Result Details [id number] BP Systolic 116 mm[Hg] Status: Comments: Lo cation: RUE; Position: Sitting BP Diastolic 64 mm[Hg] Status: Comments: Lo cation: RUE; Position: Sitting Height 60 in Status: Weight 131.125 lb Status: Body Mass Index Calculated 25.61 kg/m2 Status: Body Surface Area Calculated 1.56 m2 Status: Heart Rate 73 /min Status: Comments: Lo cation: R Brachial Artery; Respiration Rate 16 /min Status: Comments: Qu ality: Normal O2 SAT 98 % Status: Comments: So urce: RA Results Date Description Value Details [id number] CTA Chest/Abd/Pelvis TAVR [id number] Chest/Abd/Pelvis TAVR CTA SEE NOTES Tomas ts: EXAM: VIR CT angiogram thorax abdomen and pelvis. TAVR protocolINDICATION: 73 years old Female with aortic stenosisTECHNIQUE: Following the administration of intravenous contrast, 3 mm slicesfrom the thoracic inlet through the pubic symphysis were obtained in arterialphase. Images are reviewed on 3D workstation.COMPARISON: CT abdomen pelvis performed October 03, 2012, simultaneously performedcardiac CTA April 10, 2019FINDINGS:Vascular Measurements:Ascending aorta: 37 mm x 37 mmAortic arch: 27 mm x 27 mmMid-descending thoracic aorta: 26 mm x 23 mmAorta at diaphragm: 27 mm x 25 mmAorta at celiac axis: 23 mm x 23 mmAorta at superior mesenteric artery: 18 mm x 18 mmMid-infrarenal aorta: 14 mm x 14 mmRight common iliac artery: 8 mm x 8 mmRight external iliac artery: 7 mm x 6 mmRight common femoral artery: 6 mm x 7 mmLeft common iliac artery: 9 mm x 8 mmLeft external iliac artery: 7 mm x 6 mmLeft common femoral artery: 7 mm x 6 mmRight subclavian artery: 10 mm x 8 mmLeft subclavian artery: 7 mm x 8 mmCalcific scores:Ascending aorta: 2Aortic arch: 3Descending thoracic aorta: 2Aorta at diaphragm: 2Suprarenal abdominal aorta: 2Infrarenal abdominal aorta: 30 :none1 :punctate calcifications2 : <50% of vessel circumference is confluent calcification3 : >50% of vessel circumference is confluent calcificationOther vascular findings: Bovine arch variant. Moderate atherosclerotic diseasein volving the aorta.Nonvascular findings:Lower neck: The visible portions or the lower neck and thyroid areunremarkable.Axilla: Clear.Airway: Patent.Lungs and pleura: Small right pleural effusion. Scattered groundglassopacities and intralobular septal thickening is seen in the lower lobesbilaterally.There is a nodular opacity in the left lower lobe measuring 5 mm (series 8image [id number]).Mediastinum, azalea and intrathoracic lymph nodes: No enlarged mediastinal lymphnodes are appreciated.Heart, pericardium and great vessels: Marked cardiomegaly. For findings withinthe heart, refer to the simultaneously perf ormed cardiac CTA.Liver: Normal. Dilated hepatic vein, likely related to heart failure.Biliary tree: No intra- or extrahepatic biliary ductal dilation.Gallbladder: Not visualized.Pancreas: Normal.Spleen: Splenule is present. Splenomegaly, measures 13.7 cm in the craniocaudaldirection.Adrenals: Normal.Kidneys and ureters: Bilateral subcentimeter hypodensities within the kidneysare too small to characterize and statistically, are most likely representativeof simple renal cysts.Multifocal areas of cortical thinning are seen throughout the kidneysbilaterally, likely the sequela of scarring from prior infection.Bladder: Normal.Reproductive organs: Multiple vascular calcifications are seen throughout theuterus. The visualized adnexa are unremarkable.Uterine fibroid is seen in the fundus measuring 7 mm. Multiple smallercalcified fibroids are visualized as well.Gastrointestinal tract:Stomach: Normal.Small bowel: Normal.Colon: Uninflamed diverticula.Appendix: NormalPeritoneum, mesentery and retroperitoneum: Trace fluid is seen in the dependentpelvis and could be physiologic.Lymph nodes: Normal.Bones: No acute abnormality.Soft tissues: Large fat-containing umbilical hernia.IMPRESSION: 1. Arterial measurements as described above. For findings within the heart,refer to the simultaneously performed cardiac CTA.2. Moderate atherosclerosis of the abdominal and thoracic aorta.3. Bilateral lung base predominant groundglass opacities and septal thickeninglikely represents pulmonary edema.4. Questionable 5 mm nodule in the left lower lobe. Optional CT can beperformed to 12 months to document stability.--This report was dictated by a Medical Coding Instructor/Fellow/Physician Sprinkler Fitter Helper. Ihave personallyreviewed the images as well as the interpretation and agree with the findings.Read by: Anthony Holm Resident/Fellow/PhysicianAssistant: Anthony Holm MDDictated Date/time: 04/10/19 17:53Electronically Signed by: Mahesh Singh MD 04/12/1913:59FINAL REPORT [id number] CTA Heart/Coronary art TAVR [id number] Heart/Coronary art TAVR CTA SEE NOTES Comm ents: EXAM: CTA HEART WITH CONTRASTDATE: 04/10/2019 11:33 CSTINDICATION: - aortic stenosis. Aortic stenosis, TAVR candidate.COMPARISON: No prior CT heart available for comparison.TECHNIQUE:Contrast imaging was performed on a [employer] [address] scannerutilizing a single breath hold, at 780 mA and 100 kVp. Retrospective ECG gatingwas performed, at a heart rate of 60 bpm. Images were reformatted at 0.5 mmintervals and sent to the [email or web address] workstation for interpretation of bothsystolic and diastolic phases.IV contrast: 90 mL of Visipaque 320 contrast was delivered intravenously at 5.0mL/sec followed by a 50 mL normal saline bolus chaser.DLP: 2078.1 mGy-cmSTUDY QUALITY: DiagnosticFINDINGS:Aortic root landmarks (dimensions determined in systolic phases)Aortic valve: Trifleaflet: Symmetriccalcified; bulky leaflet: No;right/left/noncoronaryAortic annulus: 28.3 x 23.1 mm; average 24.2 mm; area 4.61 sq cm; odfkxojheseym76.5 mmSino-tubular junction: 32.6 x 28.8 mm; average 30.9 mmAo annulus to coronary height: left main: 16.5 mm; right: 9.92 mmAo annulus to STJ length: 25.6 mmSinuses of Valsalva: width 30.7 x 30 x 28.8 mmAscending aorta width at 40 mm from annulus: 37.3 x 32.8 mmCoplanar TAVR angle : KOREAN 2 CAU 11Coronary Arteries:This patient has a right dominant system, with normal origins of the coronaryarteries.Basal septal hypertrophy: yesSevere hypertrophy (1.5 cm wall thickness): 1.5 cmIntracardiac masses: noneOther cardiac findings:There is severe biatrial enlargement with right atrial predominance.Postsurgical changes following coronary artery bypass graft. Scattered coronarycalcifications are noted.Pacemaker: Left subclavian approach AICD terminates in the right ventricle.Artificial valve: Yes; Location: Mitral valveIntracardiac closure device: None.IMPRESSION:1. Trileaflet symmetrically calcified aortic valve and with aortic annularmeasurements as described above.2. Severe biatrial enlargement and basilar septal hypertrophy.3. Postsurgical changes following coronary artery bypass graft.4. Scattered coronary calcifications are noted. Please refer to coronaryangiogram report for dedicated findings.5. Please refer to same date CT angiogram for evaluation of noncardiacfindings.This report was made in conjunction with Dr. Aiedn Bridges.--Read by: Elva Whitneyictated Date/time: 04/10/19 14:13Electronically Signed by: Elva Whitney MD 04/14/1912:00FINAL REPORT Plan of Care Name Dates Details Planned Observations [N] 2D Echo complete, with Doppler [id number] Intent Comments: Approx 26Jun2019 Planned Goals not documented Planned Encounters Appointment; PROCEDURES, CARDIO On: 07-May-2019 9:00 Appointment; ANTHONY COHEN M.D. On: 26-Jun-2019 16:00 Instructions Name Dates Details Instructions not documented Encounters Appointment; ANTHONY COHEN M.D. Encounter Diagnosis: Problem not documented On: 20-Mar-2019 14:00 Appointment; ANTHONY COHEN M.D. Encounter Diagnosis: Problem not documented On: 10-Apr-2019 14:40 Appointment; PROCEDURES, CARDIO Encounter Diagnosis: Problem not documented On: 30-Apr-2019 13:00
--- OUTSIDE RECORDS SUMMARY | 2019-12-25 20:51 | XMS REPORT | Continuity of Care Document ---
Author Author [facility] t Organization [facility] Address [address] [place] [address] [place] [id number] Phone Unavailable Care Team Providers Care Marketing Senior Recruiter Name Role Phone RICHARD LOZANO MD PCP Richard Donohue Attphys Jose A Foster Attphys Anthony Coelho Attphys PROCEDURES, CARDIO Attphys Unavailable ANTHONY COELHO M.D. Attphys Unavailable Eugenie Rojas Attphys Mike Hurley Attphys Mohini Dee Attphys Mark Enamorado Attphys Jose A Foster Admphys Anthony Coelho Admphys Mark Enamorado Admphys Payers Payer Name Policy Type Policy Number Effective Date Expiration Date [facility] [id number] [facility] Problems Condition Name Condition Details Condition Category Status Onset Date Resolution Date Last Treatment Date Treating Clinician Comments Source R05 - COUGH R05 - COUGH Active 10/05/2019 [facility] [place] Diagnosis Active 2019-10-05 00:01:00 2019-10-13 14:31:00 Arcadio Luong ACUTE EXACERBATION OF CHF, CHEST PAIN ACUTE EXACERBATION OF CHF, CHEST PAIN Active 07/06/2019 [facility] Diagnosis Ac tive 2019-07-06 00:00:00 2019-07-08 10:58:00 M vandana Luong SOB SOB Active 07/06/2019 [facility] Diagnosis Active 2019-07-06 00:00:00 2019-07-06 22:42:00 [facility] [place] Z95.2 Z95. 2 Active 04/30/2019 [facility] Diagnosis Active 2019-04-30 00:00:00 2019-07-27 15:10:00 [facility] [place] PREADMIT / TAVR / MAC / TTE TN EADMIT / TAVR / MAC / TTE Active 04/14/2019 [facility] Diagnosis Active 2019-04-14 00 :00:00 2019-09-07 13:59:00 [facility] PREADMIT/TAVR W/ SENTINEL/ MAC/TTE PREADMIT/TAVR W/ SENTINEL/ MAC/TTE Active 03/23/2019 [facility] Diagnosis Active 2019-03-23 00:00:00 2019-09-11 15:09:00 [facility] AORTIC STENOSIS AORT IC STENOSIS Active 03/20/2019 [facility] Diagnosis Active 2019-03-20 00:00:00 2019-05-01 1 1:26:00 [facility] LT HEART CATH, FEMORAL APPROACH LT HEART CATH, FEMORAL APPROACH Active 03/04/2019 [facility] Diagnosis Active 2019-03-04 00:0 0:00 2019-03-04 09:23:00 [facility] [place] FALL FALL Active 01/30/2019 [facility] Diagnosis Active 2019-01-30 00:00:00 2019-01-30 16:08:00 [facility] WEAKNESS WEAK NESS Active 02/25/2018 [facility] Diagnosis Active 2018-02-25 00:00:00 2018-02-25 18:50:00 [facility] GENERAL WEAKNESS, PARESTHESIAS/NUMBNESS GENERAL WEAKNESS, PARESTHESIAS/NUMBNESS Active 02/25/2018 [facility] Diagnosis Active 2018-02-25 00:00:00 2018-02-26 11:27:00 [facility] SCREENING SCRE ENING Active 04/05/2017 [facility] Diagnosis Active 2017-04-05 00:00:00 2017-05-14 10:40:00 [facility] [place] Bleeding skin (finding) Blee ding skin (finding) Active 12/07/2014 Problem 12/20/2019 Data migrated from [employer] on 12/29/14. Medical Group,[facility], [place] Problem Active 2014-12-07 00:00:00 2019-12-20 23:10:02 [facility] Aortic valve stenosis (disorder) Aortic valve stenosis (disorder) Active 12/03/2014 Problem 12/20/2019 Data migrated from [employer] on 12/29/14. [facility] LAILA [place] Problem Active 2014-12-03 00:00:00 2019-12-20 23:10:02 [facility] FEVER/VOMITTING FEVE R/VOMITTING Active 11/28/2014 [facility] Diagnosis Active 2014-11-28 00:00:00 2014-11-28 20:29:00 [facility] ACUTE CHF EXACERBATION ACUT E CHF EXACERBATION Active 11/28/2014 [facility] Diagnosis Active 2014-11-28 00:00:00 2014-12-01 12:57:00 [facility] Left hemiparesis (disorder) Le ft hemiparesis (disorder) Active 04/28/2014 Problem 12/20/2019 Data migrated from [employer] on 10/23/14. [facility] OPIJose A [place] Problem Active 2014-04-28 00:00:00 2019-12-20 23:10:02 [facility] Insomnia (disorder) Inso mnia (disorder) Active 03/09/2014 Problem 12/20/2019 Data migrated from [employer] on 10/23/14. [facility] LAILA [place] Problem Active 2014-03-09 00:00:00 2019-12-20 23:10:02 vandana Luong Major depressive disorder (disorder) Major depressive disorder (disorder) Active 03/09/2014 Problem 12/20/2019 Data migrated from [employer] on 10/23/14. [facility] OPIJose A [place] Problem Active 2014-03-09 00:00:00 2019-12-20 23:10:02 [facility] Osteoarthritis (disorder) Oste oarthritis (disorder) Active 03/09/2014 Problem 12/20/2019 Data migrated from [employer] on 10/23/14. [facility], LAILA [place] Problem Active 2014-03-09 00:00:00 2019-12-20 23:10:02 [facility] Replacement of mitral valve (procedure) Replacement of mitral valve (procedure) Active 03/09/2014 Problem 12/04/2014 12Data migrated from [employer] on 10/23/14. [facility] Problem Active 2014-03-09 00: 00:00 2014-12-04 01:48:54 [facility] Anemia (disorder) Anem ia (disorder) Active 01/04/2014 Problem 12/20/2019 Data migrated from [employer] on 10/23/14. [facility] LAILA [place] Problem Active 2014-01-04 00:00:00 2019-12-20 23:10:02 M vandana Luong V49.81ASYMPTOMATIC MENOPAUSAL STATE V49.81ASYMPTOMATIC MENOPAUSAL STATE Active 09/03/2013 [facility] Diagnosis Active 2013-09-03 00:00:00 2013-09-04 09:40:00 [facility] Postmenopausal state (finding) Postmenopausal state (finding) Active 09/01/2013 Problem 12/20/2019 Data migrated from [employer] on 10/23/14. [facility] LAILA [place] Problem Active 2013-09-01 00:00:00 2019-12-20 23:10:02 [facility] Urinary incontinence (finding) Urinary incontinence (finding) Active 03/03/2013 Problem 12/20/2019 Data migrated from [employer] on 10/23/14. [facility] LAILA [place] Problem Active 2013-03-03 00:00:00 2019-12-20 23:10:02 [facility] Mitral valve stenosis (disorder) Mitral valve stenosis (disorder) Active 01/20/2013 Problem 12/20/2019 Data migrated from [employer] on 10/23/14. [facility] LAILA [place] Problem Active 2013-01-20 00:00:00 2019-12-20 23:10:02 [facility] Atrial fibrillation (disorder) Atrial fibrillation (disorder) Active 01/20/2013 Problem 12/04/2014 2Data migrated from [employer] on 10/23/14. [facility] Problem Active 2013-01-20 00:00:00 2014-12-04 01:48:54 [facility] ABNORMAL LABS ABNO RMAL LABS Active 10/03/2012 [facility] Active 2012-10-03 00:00:00 2012-10-03 20:47:00 Arcadio Luong ABDOMEN PAIN ABDO MEN PAIN Active 09/04/2012 [facility] Active 2012-09-04 00:00:00 2012-09-09 07:58:00 Arcadio Luong V76.51/V72.83/564.00/789.06 V7 6.51/V72.83/564.00/789.06 Active 02/23/2011 [facility] Active 2011-02-23 00:00:00 2011-04-07 15:17:00 Arcadio Luong UNK UNK Active 02/23/2011 [facility] Active 2011-02-23 00:00:00 2011-03-05 14:25:00 [facility] ROUTINE ROUT INE Active 02/02/2011 [facility] Active 2011-02-02 00:00:00 2011-02-06 08:44:00 [facility] Essential hypertension (disorder) Essential hypertension (disorder) Active 05/27/1959 Problem 12/20/2019 Data migrated from [employer] on 10/23/14. [facility] OPIJose A [place] Problem Active 1959-05-27 00:00:00 2019-12-20 23:10:02 Arcadio Luong History of - CVA (context-dependent category) History of - CVA (context-dependent category) Active 05/27/1959 Problem 12/20/2019 Data migrated from [employer] on 10/23/14. [facility] OPIJose A [place] Problem Active 1959-05-27 00:0 0:00 2019-12-20 23:10:02 Arcadio Luong Diabetes mellitus type 2 (disorder) Diabetes mellitus type 2 (disorder) Active 05/27/1959 Problem 12/20/2019 Data migrated from [employer] on 10/23/14. [facility] OPID [place] Problem Active 1959-05-27 00:00:00 2019-12-20 23:10:02 [facility] Hyperlipidemia (disorder) Hype rlipidemia (disorder) Active 05/27/1959 Problem 12/04/2014 5Data migrated from [facility] on 10/23/14. 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) Problem Active [facility] Encounter for screening mammogram for malignant neopla of breast Encounter for screening mammogram for malignant neoplasm of breast 05/17/2017 [facility] Problem 2017-05-17 01:26:49 [facility] Final: Nicky l: 12/04/2014 [facility] Problem 2014-12-04 01:48:54 [facility] 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 Hemiplegia and h emiparesis following cerebral infarction affecting left non-dominant side 09/15/2018 [facility] Problem 2018-09-15 14:10:42 [facility] Hypertensive heart disease with heart failure Hypertensive heart disease with heart failure 09/15/2018 [facility] Problem 2018-09-15 14:10:42 [facility] 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 09/15/2018 [facility] Problem 2018-09-15 14:10:42 [facility] Presence of cardiac pacemaker Presence of cardiac pacemaker 09/15/2018 [facility] Problem 2018-09-15 14: 10:42 [facility] 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 09/15/2018 [facility] Problem 2018-09-15 14:10:42 [facility] Type 2 diabetes mellitus without complications Type 2 diabetes mellitus without complications 09/15/2018 [facility] Problem 2018-09-15 14:10:42 [facility] Chronic atrial fibrillation Ch ronic atrial fibrillation 09/15/2018 [facility] Problem 2018-09-15 14:10:4 2 [facility] Hypothyroidism, unspecified Hy pothyroidism, unspecified 09/15/2018 [facility] Problem 2018-09-15 14:10:4 2 [facility] Mixed hyperlipidemia Mixe d hyperlipidemia 09/15/2018 [facility] Problem 2018-09-15 14:10:42 Sc anabelkaterine [place] Major depressive disorder, single episode, unspecified Major depressive disorder, single episode, unspecified 09/15/2018 [facility] Problem 2018-09-15 14:10:42 [facility] 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 09/15/2018 [facility] Problem 2018-09-15 14:10:42 [facility] Unspecified osteoarthritis, unspecified site Unspecified osteoarthritis, unspecified site 09/15/2018 [facility] Problem 2018-09-15 14:10:42 [facility] alf (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 manager terminal (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 09/15/2018 [facility] 2018-08-26 2 14:10:42 [facility] alf (current) use of anticoagulants manager terminal (current) use of anticoagulants 09/15/2018 [facility] 2018-09-15 14:10:42 [facility] alf (current) use of aspirin alf (current) use of aspirin 09/15/2018 [facility] 2018-08-26 2 14:10:42 [facility] 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 Other shelter (current) drug therapy 09/15/2018 [facility] 2018-09-15 14:10:42 [facility] Cerebrovascular accident (disorder) Cerebrovascular accident (disorder) Resolved Problem 12/20/2019 [facility] 2019-12-20 23:10:02 [facility] Diabetes mellitus (disorder) D iabetes mellitus (disorder) Resolved Problem 12/20/2019 [facility] [place] Problem Resolved 2019-12-20 23 :10:02 [facility] Hypertensive disorder, systemic arterial (disorder) Hypertensive disorder, systemic arterial (disorder) Resolved Problem 12/20/2019 [facility] OPID [place] Problem Resolved 2019-12-20 23:10:02 [facility] [place] Chronic atrial fibrillation (disorder) Chronic atrial fibrillation (disorder) Active Problem 12/20/2019 [facility] OPID [place] Problem Active 2019-12-20 23:10:02 [facility] History of mitral valve replacement (situation) History of mitral valve replacement (situation) Active Problem 12/20/2019 [facility] Problem Ac tive 2019-12-20 23:10:02 Arcadio celis Mixed hyperlipidemia (disorder) Mixed hyperlipidemia (disorder) Active Problem 12/20/2019 [facility] Problem Active 2019-12-20 23:10:0 2 Arcadio Luong Warfarin therapy started (regime/therapy) Warfarin therapy started (regime/therapy) Active Problem 12/20/2019 [facility] Problem Active 2019-12-20 23:10:02 Arcadio Luong 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) 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) Active Problem 12/20/2019 [facility] Problem Active 2019-12-20 23:10:02 Arcadio Luong Edema of lower extremity (finding) Edema of lower extremity (finding) Active Problem 12/20/2019 [facility] Problem Active 2 23:10:02 [facility] CHF NOS CHF NOS Active [facility] Diagnosis Acti ve 2014-12-01 12:57:00 [facility] Her celis HEART FAILURE, UNSPECIFIED HEA RT FAILURE, UNSPECIFIED Active [facility] Diagnosis Active 2019-07-08 10:58:00 [facility] CHEST PAIN, UNSPECIFIED CHES T PAIN, UNSPECIFIED Active [facility] Diagnosis Active 2019-07-08 10:58:00 [facility] Unspecified injury of head, initial encounter Unspecified injury of head, initial encounter 01/30/2019 02/01/2019 [facility] Problem 2019-01-30 17:00:00 2019-02-01 22:17:11 2019-02-01 22:17:11 Arcadio Luong Paresthesia of skin Pare sthesia of skin 03/05/2018 09/15/2018 [facility] Problem 2018-03-05 03:37:54 2018-09-15 14:10: 42 2018-09-15 14:10:42 Arcadio Luong History of Past Illness Condition Name Condition Details Condition Category Status Onset Date Resolution Date Last Treatment Date Treating Clinician Comments Source Screening - health check (procedure) Screening - health check (procedure) Resolved 08/17/2014 Problem 12/20/2019 Data migrated from [employer] on 12/01/14.Data migrated from [employer] on 10/26/14. [facility] [place] Problem Resolved 2014-08-17 00:00:00 2019-12-20 23:10:02 2019-12-20 23:10:02 [facility] Urinary tract infectious disease (disorder) Urinary tract infectious disease (disorder) Resolved 04/28/2014 Problem 12/20/2019 Data migrated from [employer] on 12/11/14. [facility] [place] Problem Resolved 3 00:00:00 2019-12-20 23:10:02 2019-12-20 23:10:02 [facility] Dental abscess (disorder) [place] al abscess (disorder) Resolved 10/13/2013 Problem 12/20/2019 Data migrated from [employer] on 12/11/14. [facility] [place] Problem Resolved 2013-10-13 00:00:00 2019-12-20 23:10:02 2 23:10:02 [facility] Acute cystitis (disorder) Acut e cystitis (disorder) Resolved 07/13/2013 Problem 12/20/2019 Data migrated from [employer] on 12/11/14. [facility] Problem Resolved 2013-07-13 00:00:00 2019-12-20 23:10:02 2 23:10:02 [facility] Allergies, Adverse Reactions, Alerts Allergy Name Allergy Type Status Severity Reaction(s) Onset Date Inacti ve Date Treating Clinician Comments Source No Known Medication Allergies No Known Medication Allergies Active [facility] NKFA NKFA Active [facility] Social History Social Habit Start Date Stop Date Quantity Comments Source Social History 2018-12-10 16:12:28 2018-12-10 16:12:28 [facility] Medications Ordered Medication Name Filled Medication Name Start Date Stop Da te Current Medication? Ordering Clinician Indication Dosage Frequency Signature (SIG) Comments Components Source Warfarin 2019-07-08 23:00:00 No Notes: Nurse to ensure documentation of patient education per anticoagulation policy. Avoid large intake of vitamin-K containing foods diet. 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 (Same as:Xalatan) Opened bottle may be stored at room temperature for 6 weeks [facility] Warfarin 2019-07-07 23:00:00 No 6 mg, 3 tab, Route: PO, Drug form: TAB, Q5PM, Dosing Weight 60.909, kg, Start date: 07/07/19 17:00:00 [employer]ER, Duration: 1 doses or times, Stop date: 07/07/19 17:00:00 [employer] M[employer]ER, 0 [facility] Furosemide 2019-07-07 23:00:00 No Notes: (Same as: Lasix) MEDICATION WASTE Product Size: 40 mg Product Wasted: ___ mg [facility] travoprost 0.04 MG/ML Ophthalmic Solution [Travatan] 07-07 23:00:00 No 1 drp, Route: OP TH, Drug Form: SOLN, Dosing Weight 60.909, kg, QPM, Start date: 07/07/19 17:00:00 [employer]GS[employer] M[employer]ER, Duration: 30 day, Stop date: 08/05/19 17:00:00 CDT [facility] Potassium Chloride 2019-07-07 16:56:00 No Notes: (Same as: K-Dur 20) "Do Not Crush" Give with food and full glass of water For patients unable to swallow tablet, dissolve in one half glass of water. Allow about 2 minutes for the tablets to disintegrate. Stir before giving to prepare slurry and administer. Please exclude Patient s with feeding tube less than 14 Taj[place] (Dobhoff, J-tube etc) and pediatric and patients. [facility] Magnesium Sulfate 2019-07-07 16:56:00 No Notes: WASTE: F/P - Sink; E - Municipal Trash Bin [facility] Saline Flush 0.9% 2019-07-07 15:00:00 No Notes: (Same as: BD Posiflush) [facility] atorvastatin 2019-07-07 15:00:00 No Notes: (Same As: Lipitor) [facility] Calcium Carbonate 1500 MG / Cholecalciferol 400 UNT Oral Tab let 2019-07-07 15:00:00 No Notes: (Same As: Michael-D, OsC al-D, Oyster Calcium) [facility] Digoxin 0.125 MG Oral Tablet 2019-07-07 15:00:00 No Notes: Take on an Empty Stomach (Same as: Lanoxin) [facility] orial [place] Escitalopram 2019-07-07 15:00:00 No Notes: (Same as: Lexapro) [facility] ferrous sulfate 2019-07-07 15:00:00 No Notes: Give with food. "Do Not Crush" [facility] Losartan 2019-07-07 15:00:00 No Notes: (Gavino e as: Cozaar) [facility] metoprolol tartrate 2019-07-07 15:00:00 No Notes: (Same as: Lopressor) [facility] Omeprazole 2019-07-07 15:00:00 No 40 mg, 1 cap, Route: PO, Drug form: DRC, Daily, Dosing Weight 60.909, kg, Start date: 07/07/19 9:00:00 [employer]ER, Duration: 30 day, Stop date: 08/05/19 9:00:00 CDT [facility] prednisolone 2019-07-07 15:00:00 No Notes: (Same as: Pred Forte) [facility] Protonix 2019-07-07 15:00:00 No Notes: Tablet should not be chewed or crushed. (Same as: Protonix) [facility] Aspirin 81 MG Enteric Coated Tablet 2019-07-07 11:00:00 No Notes: Do not crush or chew. (Same As: Ecotrin) Li Luong Lasix 2019-07-07 10:11:00 No Notes: (Same as: Lasix) MEDICATION WASTE Product Size: 40 mg Product Wasted: ___ mg [facility] Dextrose 50% Syringe (D50W) 2019-07-07 10:11:00 No 12.5 gm, 25 mL, Route: IVP, Drug Form: INJ, Dosing Weight 60.909, kg, PRN, PRN Blood Glucose Results, Start date: 07/07/19 4:11:00 [employer]ER, Duration: 30 day, Stop date: 08/06/19 5:10:00 CDT, 0 [facility] Glucagon 2019-07-07 10:11:00 No 1 mg, Route: IM, Drug form: PDR/INJ, PRN, Dosing Weight 60.909, kg, PRN Blood Glucose Results, Start date: 07/07/19 4:11:00 [employer] M[employer]ER, Duration: 30 day, Stop date: 08/06/19 5:10:00 CDT, 0 [facility] Insulin Lispro 2019-07-07 10:11:00 No Notes: (Same as: Humalog) Roll in palms of hands gently; Do not shake vigorously. WASTE: F/P - Black; E - Municipal Trash Bin Stable for 28 days at room temperature. Expires in days from Date [facility] Torsten landerosefra Nitroglycerin 2019-07-07 10:06:00 No Notes: (Same as:Tiny An) "Do Not Crush" Sublingual tablet [facility] Saline Flush 0.9% 2019-07-07 10:06:00 No Notes: (Same as: BD Posiflush) [facility] Lovenox 2019-05-02 02:00:00 No Notes: Nurse to ensure documentation of patient education per anticoagulation policy. (Same as: Lovenox) Arcadio Luong Coumadin 2019-05-01 23:08:00 No Notes: Nurse to ensure documentation of patient education per anticoagulation policy. Avoid large intake of vitamin- K containing foods diet. (Same As: Coumadin) WASTE: F/P - P Waste Black; E - P Waste Black Arcadio Luong travoprost 0.04 MG/ML Ophthalmic Solution [Travatan] 05-01 23:00:00 No 1 drp, Route: OP TH, Drug Form: SOLN, Dosing Weight 60.455, kg, QPM, Start date: 05/01/19 17:00:00 [employer], Duration: 30 day, Stop date: 05/30/19 17:00:00 [employer] Arcadio Luong POLYETHYLENE GLYCOL 3350 2019-05-01 15:00:00 No Notes: Dissolve in 8 oz of water or juice. (Same as: Miralax) Arcadio Luong metoprolol extended release 2019-05-01 15:00:00 No Notes: (Same as: Toprol XL) Do Not Crush Arcadio Luong Aspirin 81 MG Enteric Coated Tablet 2019-05-01 15:00:00 No Notes: Do not crush or chew. (Same As: Ecotrin) emorikaterine Luong atorvastatin 2019-05-01 15:00:00 No Notes: (Same As: Lipitor) Arcadio Luong Digoxin 0.125 MG Oral Tablet 2019-05-01 15:00:00 No Notes: Take on an Empty Stomach (Same as: Lanoxin) [facility] gale Luong Escitalopram 2019-05-01 15:00:00 No Notes: (Same as: Lexapro) Arcadio Luong ferrous sulfate 2019-05-01 15:00:00 No Notes: Give with food. "Do Not Crush" Arcadio Luong Losartan 2019-05-01 15:00:00 No Notes: (Gavino e as: Cozaar) Arcadio Luong Omeprazole 2019-05-01 15:00:00 No 40 mg, Route: PO, Drug form: DRC, Daily, Dosing Weight 60.455, kg, Start date: 05/01/19 9:00:00 [employer], Duration: 30 day, Stop date: 05/30/19 9:00:00 [employer] [facility] orikaterine Luong Warfarin 2019-05-01 15:00:00 No Route: PO, Drug form: TAB, Q-M-W-F, Dosing Weight 60.455, kg, Start date: 05/01/19 9:00:00 [employer], Duration: 30 day, Stop date: 05/29/19 9:00:00 [employer] Arcadio Luong prednisolone 2019-05-01 15:00:00 No Notes: (Same as: Pred Forte) Arcadio Luong Insulin Glargine 2019-05-01 15:00:00 No 15 unit, 0.15 mL, Route: SUB-Q, Drug form: SOLN, Daily, Dosing Weight 60.455, kg, Start date: 05/01/19 9:00:00 [employer], Duration: 30 day, Stop date: 05/30/19 9:00:00 [employer]GS[employer] M[employer]ER, 0 [facility] Protonix 2019-05-01 13:30:00 No Notes: Tablet should not be chewed or crushed. (Same as: Protonix) Arcadio Luong Furosemide 40 MG Oral Tablet 2019-05-01 11:35:00 No Notes: (Same as: Lasix) May cause GI upset. Give with food or milk. Arcadio Luong 24 HR Metoprolol Tartrate 25 MG Extended Release Tablet [Top rol] 2019-05-01 11:35:00 No Notes: (Same as: Toprol XL) D o Not Crush [facility] Acetaminophen 2019-05-01 08:31:00 No Notes: Do not exceed 4 gm/day. (Same as: Tylenol) Arcadio Ag ceFAZolin (SCIP) + sterile water 10 mL 2019-05-01 05:00:00 No Notes: (Same As: Linnea Dickerson) MEDICATION WASTE Product Size: 1000 mg Product Wasted: ___ mg [facility] Docusate 2019-05-01 03:00:00 No Notes: (Same as: Colace) (Do Not Crush) Arcadio [place] latanoprost ophthalmic 2019-05-01 03:00:00 No Notes: Keep refrigerated. (Same as:Xalatan) Opened bottle may be stored at room temperature for 6 weeks Arcadio Luong Warfarin 2019-05-01 02:10:00 No Notes: Nurse to ensure documentation of patient education per anticoagulation policy. Avoid large intake of vitamin- K containing foods diet. WASTE: F/P - P Waste Black; E - P Waste Black (Same As: Coumadin) Arcadio Luong Lovenox 2019-05-01 01:00:00 No Notes: Nurse to ensure documentation of patient education per anticoagulation policy. (Same as: Lovenox) Arcadio Luong Dextrose 50% Syringe (D50W) 2019-04-30 23:59:00 No 12.5 gm, 25 mL, Route: IVP, Drug Form: INJ, Dosing Weight 60.455, kg, PRN, PRN Blood Glucose Results, Start date: 04/30/19 17:59:00 [employer], Duration: 30 day, Stop date: 05/30/19 17:58:00 [employer], 0 Arcadio Hauser n Glucagon 2019-04-30 23:59:00 No 1 mg, Route: IM, Drug form: PDR/INJ, PRN, Dosing Weight 60.455, kg, PRN Blood Glucose Results, Start date: 04/30/19 17:59:00 [employer], Duration: 30 day, Stop date: 05/30/19 17:58:00 [employer] M[employer]ER, 0 Arcadio Luong Insulin Lispro 2019-04-30 23:59:00 No Notes: (Same as: Humalog) Roll in palms of hands gently; Do not shake vigorously. WASTE: F/P - Black; E - Municipal Trash Bin Stable for 28 days at room temperature. Expires in days from Date Arcadio cerda protamine (ANES) 2019-04-30 22:59:00 No Route: IV, Drug form: INJ, ONCE, Stop date: 04/30/19 16:59:00 [employer] Li Luong Hydralazine 2019-04-30 22:58:00 No 10 mg, Route: IVP, Q20Min, Dosing Weight 60.455, kg, PRN Elevated BP, Start date: 04/30/19 16:58:00 [employer], Duration: 2 doses or times, Stop date: Limited # of times Arcadio Luong Metoprolol 2019-04-30 22:58:00 No 1 mg, Route: IVP, Q5Min, Dosing Weight 60.455, kg, PRN Other -See Comment, Start date: 04/30/19 16:58:00 [employer], Duration: 5 doses or times, Stop date: Limited # of times [facility] Oxycodone 2019-04-30 22:58:00 No 5 mg, Route: NG, Drug form: LIQ, Q4H, Dosing Weight 60.455, kg, PRN Pain Score 4-6, Start date: 04/30/19 16:58:00 [employer], Duration: 30 day, Stop date: 05/30/19 16:57:00 [employer] [facility] Hydromorphone 2019-04-30 22:58:00 No 0.5 mg, Route: IVP, Q5Min, Dosing Weight 60.455, kg, PRN Pain Score 7-10, Start date: 04/30/19 16:58:00 [employer], Duration: 4 doses or times, Stop date: Limited # of times [facility] Fentanyl 2019-04-30 22:58:00 No 50 microgram, Route: IVP, Q5Min, Dosing Weight 60.455, kg, PRN Pain Score 7-10, Priority: Routine, Start date: 04/30/19 16:58:00 [employer], Duration: 2 doses or times, Stop date: Limited # of times [facility] Flumazenil 2019-04-30 22:58:00 No 0.2 mg, Route: IVP, PRN, Dosing Weight 60.455, kg, PRN Benzodiazepine Reversal, Initial dose, Start date: 04/30/19 16:58:00 [employer]ER, Duration: 30 day, Stop date: 05/30/19 16:57:00 [employer] [facility] Naloxone 2019-04-30 22:58:00 No 0.4 mg, Route: IVP, Q2MIN, Dosing Weight 60.455, kg, PRN Narcotic Reversal, Start date: 04/30/19 16:58:00 [employer]ER, Duration: 8 doses or times, Stop date: Limited # of times [facility] Ondansetron 2019-04-30 22:58:00 No 4 mg, Route: IVP, ONCE, Dosing Weight 60.455, kg, PRN Nausea & Vomiting, Start date: 04/30/19 16:58:00 [employer] [facility] heparin (ANES) 2019-04-30 22:43:00 No Route: IV, Drug form: INJ, ONCE, Stop date: 04/30/19 16:43:00 [employer] Li caro ([facility]) 2019-04-30 22:38:00 No Route: IV, Drug form: INJ, ONCE, Stop date: 04/30/19 16:38:00 [employer] Arcadio Luong pantoprazole 2019-04-30 22:30:00 No Notes: Tablet should not be chewed or crushed. (Same as: Protonix) Li Luong ceFAZolin ([facility]) 2019-04-30 22:18:00 No Route: IV, Drug form: INJ, ONCE, Stop date: 04/30/19 16:18:00 [employer] [facility] midazolam ([facility]) 2019-04-30 22:13:00 No Route: IV, Drug form: SOLN, ONCE, Stop date: 04/30/19 16:13:00 [employer] M[employer]ER Li Luong fentaNYL ([facility]) 2019-04-30 22:13:00 No Route: IV, Drug form: INJ, ONCE, Stop date: 04/30/19 16:13:00 [employer] M[employer] [facility] Cefazolin 2019-04-30 22:00:00 No Notes: (Same As: Linnea Dickerson) MEDICATION WASTE Product Size: 1000 mg Product Wasted: ___ mg Arcadio Ag propofol ([facility]) 10 mg 2019-04-30 21:42:00 No Route: IV, Drug form: INJ, Start date: 04/30/19 15:42:00 [employer] M[employer]ER, Stop date: 04/30/19 16:42:00 [employer] [facility] Nicardipine 2019-04-30 21:13:00 No Notes: Same as: Cardene Concentration: (0.2 mg /1 ml ) [facility] Acetaminophen 2019-04-30 21:13:00 No Notes: Infuse over 15 minutes Do not exceed 4gm/day of acetaminophen MEDICATION WASTE Product Size: 1000 mg Product Wasted: ___ mg [facility] Ondansetron 2019-04-30 21:13:00 No Notes: (Same as: Zofran) MEDICATION WASTE Product Size: 4 mg Product Wasted: ___ mg Arcadio Ag Sodium Chloride 0.9% (Bolus) IV 2019-04-30 16:00:00 No 250 mL, 250 ml/hr, Infuse Over: 1 hr, Route: IV, 250, Drug form: INJ, ONCALL, Priority: Routine, Dosing Weight 61.364 kg, Start date: 04/30/19 10:00:00 [employer]ER, Duration: 1 doses or times, Stop date: 04/30/19 17:00:00 [employer]GS[employer] M[employer]ER, 0 [facility] Sodium Chloride 0.9% IV 750 mL 2019-04-30 15:56:00 No 750 mL, Rate: 75 ml/hr, Infuse over: 10 hr, Route: IV, Dosing Weight 61.364 kg, Total Volume: 750, Start date: 04/30/19 9:56:00 [employer] M[employer]ER, Duration: 24 hr, Stop date: 05/01/19 9:55:00 [employer]GS[employer] M[employer]ER, 1.68, m2, 0 [facility] Sodium Chloride 0.9% (titrate) 250 mL 2019-04-30 15:56:00 N o 250 mL, Rate: To prime line and flush remaining blood products., Dosing Weight 61.364, kg, Route: IV, Total Volume: 250, Start Date: 04/30/19 9:56:00 [employer]GS[employer] M[employer]ER, Duration: 1 day, Stop date: 05/01/19 9:55:00 HOGS[employer] M[employer]ER, Replace Every: 24 hr, 0 Arcadio Luong ferrous sulfate 325 mg oral enteric coated tablet 2019-04-10 19:27:00 Yes 325 mg = 1 tab, PO, Daily, # 60 tab, 3 Refill(s ) [facility] Enoxaparin Sodium 60 MG/0.6ML Subcutaneous Solution En oxaparin Sodium 60 MG/0.6ML Subcutaneous Solution 2019-03-20 00:00:00 Yes JAIME CONCEPCION M.D. inject 60mg twice daily starting 5 days prior to proce dure. [facility] Enoxaparin 2019-03-04 18:00:00 No Notes: Nurse to ensure documentation of patient education per anticoagulation policy. (Same as: Lovenox) [facility] [place] enoxaparin 60 mg/0.6 mL subcutaneous solution 2019-03-04 16:29:0 0 Yes 60 mg, SUB-Q, Q12H, X 7 day, # 14 syr, 0 Refill(s), Pharmacy: [facility]/pharmacy #[id number] [facility] Sodium Chloride 0.9% IV 250 mL 2019-03-04 16:28:00 No 250 mL, Rate: 20 ml/hr, Infuse over: 12.5 hr, Route: IV, Dosing Weight 59.545 kg, Total Volume: 250, Start date: 03/04/19 11:28:00 CDT, Duration: 24 hr, Stop date: 03/05/19 11:27:00 CDT, 1.65, m2, 0 [facility] Ondansetron 2019-03-04 16:28:00 No Notes: (Same as: Zoagustin) MEDICATION WASTE Product Size: 4 mg Product Wasted: ___ mg Arcadio Luong Acetaminophen 2019-03-04 16:28:00 No Notes: Do not exceed 4 gm/day. (Same as: Tylenol) Arcadio Luong acetaminophen-codeine #3 2019-03-04 16:28:00 No Notes: Do not exceed 4gm/day of acetaminophen. (Same as: Tylenol with Codeine # 3) Arcadio Luong omeprazole 40 mg oral delayed release capsule 2019-03-04 14:53:0 0 Yes 40 mg = 1 cap, PO, Daily, # 30 cap, 1 Refill(s) Arcadio Luong prednisoLONE acetate 1% preservative-free ophthalmic suspens ion 2019-03-04 14:53:00 Yes See Instru ctions, 1 drop into left eye 3 times a day, 0 Refill(s) Arcadio Luong Calcium 600 +D oral tablet 2019-03-04 14:53:00 Yes 1 tab, PO, BID, 0 Refill(s) Arcadio Luong Acetaminophen 325 MG / tramadol hydrochloride 37.5 MG Oral T ablet 2019-03-04 14:53:00 Yes 1 tab, PO, Daily, PRN Pain, # 60 tab, 0 Refill(s) Arcadio Luong Ferrous Sulfate 325 Mg Tablet Ferrous Sulfate 325 Mg Tablet 2018 00:00:00 Yes Rodrick Teague Md 325 Daily [facility] Metoprolol Tartrate 25 mg oral tablet 2018-11-25 21:56:40 Y es = 1 tab, PO, BID, # 180 tab, 0 Refill(s), Pharmacy: [facility]/pharmacy #[id number] Arcadio Luong Nitroglycerin 0.4 MG Sublingual Tablet 2018-11-09 03:51:22 Yes See Instructions, # 50 tab, Refill(s) 1, PLACE 1 TAB UNDER TONGUE EVER 5 MINUTES X 3 DOSES FOR CHEST PAIN IF NO IMPROVEMENT SEEK MEDICAL ATT., Pharmacy: [address] warfarin 5 mg oral tablet 2018-09-03 15:22:18 Yes = 1 tab, PO, Daily, # 90 tab, 1 Refill(s), Pharmacy: [address] escitalopram 10 mg oral tablet 2018-08-13 19:18:00 Yes 10 mg = 1 tab, PO, Daily, # 90 tab, 0 Refill(s), Pharmacy: [address] Metformin hydrochloride 1000 MG Oral Tablet 2018-07-02 21:09:00 Yes 1,000 mg = 1 tab, PO, BID, # 180 tab, 1 Refill(s), Pharmacy: [address] Metformin hydrochloride 1000 MG Oral Tablet 2018-07-01 22:28:48 No 1,000 mg = 1 tab, PO, BID, # 180 tab, 1 Refill(s), Pharmacy: [address] ACCU-CHEK ADRIÁN PLUS TEST STRP 2018-06-18 05:40:31 Yes See Instructions, # 50 strip, Refill(s) 5, USE DIRECTED ONCE DAILY, Pharmacy: [address] Nitroglycerin 0.4 MG Sublingual Tablet 2018-05-29 14:39:12 No See Instructions, # 50 tab, Refill(s) 1, PLACE 1 TAB UNDER TONGUE EVER 5 MINUTES X 3 DOSES FOR CHEST PAIN IF NO IMPROVEMENT SEEK MEDICAL ATT., Pharmacy: [address] Ofloxacin 3 MG/ML Otic Solution 2018-05-02 16:28:00 Yes 5 drp, RIGHT EAR, BID, # 10 mL, 0 Refill(s), Pharmacy: [address] Coumadin 2018-02-27 22:00:00 No Notes: Nurse to ensure documentation of patient education per anticoagulation policy. Avoid large intake of vitamin- K containing foods diet. (Same As: Coumadin) WASTE: F/P - P Waste Black; E - P Waste Black [facility] 3 ML Insulin Glargine 100 UNT/ML Prefilled Syringe [Lantus] 2018-02-27 02:00:00 No Notes: (Sa me as: Lantus) Do not hold insulin without contacting prescriber WASTE: F/P - Black; E - Municipal Trash Bin "single patient use only" Arcadio Luong atorvastatin 2018-02-27 02:00:00 No Notes: (Same as: Lipitor) Arcadio Guzmanann travoprost 0.04 MG/ML Ophthalmic Solution [Travatan] 02-26 22:00:00 No Notes: Non-formulary Drug Same As: Gage atan or Travatan Z [facility] Warfarin 2018-02-26 22:00:00 No 5 mg, 1 tab, Route: PO, Drug form: TAB, Q5PM, Dosing Weight 63.6, kg, Start date: 02/26/18 17:00:00 CDT, Duration: 30 day, Stop date: 03/27/18 17:00:00 CDT [facility] Warfarin 2018-02-26 21:00:00 No Notes: Nurse to ensure documentation of patient education per anticoagulation policy. Avoid large intake of vitamin- K containing foods diet. WASTE: F/P - P Waste Black; E - P Waste Black (Same As: Coumadin) Arcadio Guzmanann 24 HR Metoprolol Tartrate 25 MG Extended Release Tablet [Top rol] 2018-02-26 14:00:00 No Notes: (Same as: Toprol XL) D o Not Crush [facility] Losartan 2018-02-26 14:00:00 No Notes: (Gavino e as: Cozaar) [facility] Furosemide 40 MG Oral Tablet 2018-02-26 14:00:00 No Notes: (Same as: Lasix) May cause GI upset. Give with food or milk. [facility] Escitalopram 2018-02-26 14:00:00 No Notes: (Same as: Lexapro) [facility] Digoxin 0.125 MG Oral Tablet 2018-02-26 14:00:00 No Notes: Take on an Empty Stomach (Same as: Lanoxin) [facility] gale Luong Aspirin 81 MG Enteric Coated Tablet 2018-02-26 14:00:00 No Notes: Do not crush or chew. (Same As: Ecotrin) Li Luong Protonix 2018-02-26 12:30:00 No Notes: Tablet should not be chewed or crushed. (Same as: Protonix) Arcadio Luong Insulin Lispro 2018-02-26 07:37:00 No Notes: (Same as: Humalog ) Roll in palms of hands gently; Do not shake `vigorously. "Single Patient Use Only " WASTE: F/P - Black; E - Municipal Trash Bin Stable for 28 days at room temperature. Expires in days from Date Arcadio Luong Dextrose 50% Syringe 2018-02-26 07:37:00 No 50 mL, Route: IVP, Dosing Weight 63.6, kg, PRN, PRN Blood Glucose Results, Start date: 02/26/18 2:37:00 CDT, Duration: 30 day, Stop date: 03/28/18 2:36:00 CDT Arcadio Luong Glucagon 2018-02-26 07:37:00 No 1 mg, Route: IM, PRN, Dosing Weight 63.6, kg, PRN Blood Glucose Results, Start date: 02/26/18 2:37:00 CDT, Duration: 30 day, Stop date: 03/28/18 2:36:00 CDT Arcadio Luong Lasix 2018-02-26 04:08:00 No Notes: (Same as: Lasix) MEDICATION WASTE Product Size: 40 mg Product Wasted: ___ mg Arcadio Luong Katherine Gonzalez 2018-02-25 23:49:00 No Notes: (Same As: Katherine Gonzalez) "Do Not Crush" Arcadio Luong Benadryl 2018-02-25 23:49:00 No 12.5 mg, 0.5 tab, Route: PO, Drug form: TAB, Q8H, Dosing Weight 63.636, kg, PRN as needed for itching, Priority: Routine, Start date: 02/25/18 18:49:00 CDT, Duration: 30 day, Stop date: 03/27/18 18:48:00 CDT Arcadio Luong Lactulose 667 MG/ML Oral Solution 2018-02-25 23:49:00 No Notes: (Same as:Chronulac) Arcadio Luong Seroquel 2018-02-25 23:49:00 No Notes: (Gavino e as: SEROquel) [facility] Vasotec 2018-02-25 23:49:00 No Notes: (Same as: Vasotec-IV) [facility] Melatonin 2018-02-25 23:49:00 No Notes: ([facility] as: Melatonin) [facility] Ondansetron 2018-02-25 23:49:00 No Notes: (Same as: Zofran) MEDICATION WASTE Product Size: 4 mg Product Wasted: ___ mg [facility] Acetaminophen 325 MG / Hydrocodone Bitartrate 5 MG Oral Tabl et 2018-02-25 23:49:00 No Notes: ([facility] as: Aurelia 325/5) Do not exceed 4gm/day of acetaminophen. [facility] Docusate 2018-02-25 23:49:00 No Notes: (Same as: Colace) (Do Not Crush) [facility] Morphine 2018-02-25 23:49:00 No Not es: (Same as:MORPhine Sulfate) [facility] Acetaminophen 2018-02-25 23:49:00 No Notes: Do not exceed 4 gm/day. (Same as: Tylenol) [facility] Saline Flush 0.9% 2018-02-25 18:23:00 No Notes: (Same as: BD Posiflush) [facility] 3 ML Insulin Glargine 100 UNT/ML Prefilled Syringe [Lantus] 2018-02-01 04:09:57 Yes See Instru ctions, INJECT 30 UNITS SUB-Q AT BEDTIME ROTATE INJECTION SITES, # 15 syr, 4 Refill(s), Pharmacy: [facility]/pharmacy #[id number] [facility] warfarin 1 mg oral tablet 2017-12-30 20:16:16 Yes See Instructions, 1 tab PO every MWF, # 1 tab, 2 Refill(s), Pharmacy: [facility]/pharmacy #[id number] [facility] Metformin hydrochloride 1000 MG Oral Tablet 2017-12-21 03:19:36 No 1,000 mg = 1 tab, PO, BID, # 180 tab, 1 Refill(s), Pharmacy: [facility]/pharmacy #[id number] [facility] warfarin 5 mg oral tablet 2017-11-05 23:54:30 Yes 5 mg = 1 tab, PO, Daily, # 90 tab, 1 Refill(s), Pharmacy: [facility]/pharmacy #[id number] [facility] losartan 25 mg oral tablet 2017-11-05 23:54:12 Yes 25 mg = 1 tab, PO, Daily, # 90 tab, 1 Refill(s), [id number] escitalopram 10 mg oral tablet 2017-10-07 23:56:47 Yes 10 mg = 1 tab, PO, Daily, # 90 tab, 1 Refill(s), [id number] warfarin 1 mg oral tablet 2017-10-01 22:01:58 Yes See Instructions, TAKE ONE TABLET BY MOUTH DAILY NEEDED, # 30 tab, 2 Refill(s), [id number] Acetaminophen 325 MG / tramadol hydrochloride 37.5 MG Oral T ablet 2017-07-05 18:08:19 Yes 1 tab, PO, Daily, take as needed, # 30 tab, 1 Refill(s) [facility] Oseltamivir 75 MG Oral Capsule [Tamiflu] 2017-07-05 18:08:00 Yes 75 mg = 1 cap, PO, BID, # 10 cap, 0 Refill(s) [facility] BD Ultra-Fine Mini Insulin Pen [place] 31G 5mm=3/16 inch 2017-07-05 18:08:00 Yes 1 ea, MISC, Daily, # 100 ea, 3 R efill(s) [facility] benzonatate 100 mg oral capsule 2017-06-21 16:04:00 No 100 mg = 1 cap, PO, TID, PRN cough, do not crush or chew, X 10 day, # 30 cap, 0 Refill(s), Pharmacy: [facility]/pharmacy #[id number] [facility] Cefuroxime 500 MG Oral Tablet 2017-06-21 16:04:00 No 500 mg = 1 tab, PO, BID, X 7 day, # 14 tab, 0 Refill(s), [id number] Furosemide 40 MG Oral Tablet 2014-12-02 14:00:00 No Notes: (Same as: Lasix) May cause GI upset. Give with food or milk. [facility] Levofloxacin 250 MG Oral Tablet [Levaquin] 2014-12-01 17:37:00 Yes 250 mg = 1 tab, PO, Q24H, X 5 day, # 5 tab, 0 Refill(s) [facility] Warfarin 2014-11-30 22:00:00 No Notes: Nurse to ensure documentation of patient education per anticoagulation policy. Avoid large intake of vitamin- K containing foods diet. (Same As: Coumadin) [facility] Levaquin 2014-11-30 16:00:00 No Notes: (Gavino e as:Levaquin) [facility] Losartan 2014-11-30 14:00:00 No Notes: (Gavino e as: Cozaar) [facility] Escitalopram 2014-11-30 14:00:00 No Notes: (Same as: Lexapro) [facility] Morphine 2014-11-30 13:08:00 No Not es: (Same as:MORPhine Sulfate) [facility] digoxin 125 mcg (0.125 mg) oral tablet 2014-11-30 11:30:00 No Notes: Take on an Empty Stomach (Same as: Lanoxin) [facility] travoprost 0.04 MG/ML Ophthalmic Solution [Travatan] 11-30 02:00:00 No Notes: (Same As: Travatan) [facility] Levemir FlexPen 2014-11-30 02:00:00 No Notes: Same as Levemir Do not hold insulin without contacting prescriber "single patient use only" [facility] Insulin Glargine 2014-11-30 02:00:00 No 30 unit, Route: SUB-Q, Drug form: SOLN, Bedtime, Dosing Weight 61.619, kg, Start date: 11/29/14 21:00:00, Duration: 30 day, Stop date: 12/28/14 21:00:00 [facility] atorvastatin 2014-11-30 02:00:00 No Notes: (Same As: Lipitor) [facility] Mucinex Max Strength 2014-11-30 02:00:00 No Notes: (Same as: Guaifenesin LA, Humibid LA, Mucinex) "Do Not Crush" Take medication with plenty of water. [facility] Warfarin 2014-11-29 22:00:00 No Notes: Nurse to ensure documentation of patient education per anticoagulation policy. Avoid large intake of vitamin- K containing foods diet. (Same As: Coumadin) [facility] metoprolol tartrate 2014-11-29 22:00:00 No Notes: (Same as: Lopressor) Arcadio Luong Metformin hydrochloride 1000 MG Oral Tablet 2014-11-29 22:00:00 No Notes: (Same as: Glucophage) Take with meal Arcadio Luong Aspirin 81 MG Enteric Coated Tablet 2014-11-29 22:00:00 No Notes: Do not crush or chew. (Same As: Ecotrin) [facility] codeine-guaiFENesin 2014-11-29 20:00:00 No Notes: (Same As: Vikkisin AC) Arcadio Luong Ketorolac Tromethamine 5 MG/ML Ophthalmic Solution 6 18:00:00 No Notes: (Same as:Acular) For ophthalmic use. Arcadio Luong prednisolone 1.2 MG/ML Ophthalmic Suspension [Pred Mild] 2014-11-29 18:00:00 No 1 drp, Route: LEFT EYE, QID, Drug form: SUSP, Start date: 11/29/14 13:00:00, Duration: 30 day, Stop date: 12/29/14 9:00:00 Arcadio Luong prednisolone 10 MG/ML Ophthalmic Solution [Prednisol] 2014-11-29 17:00:00 No Notes: (Same as: Pred Forte) Arcadio Luong Levaquin 2014-11-29 16:00:00 No 500 mg, Route: IVPB, [id number], Dosing Weight 61.619, kg, Start date: 11/29/14 11:00:00, Duration: 30 day, Stop date: 12/28/14 11:00:00 Arcadio Luong codeine-guaiFENesin 2014-11-29 15:54:00 No Notes: (Same As: Steven AC) Arcadio Luong tramadol 50 mg oral tablet 2014-11-29 15:22:00 No Notes: Not to exceed 400mg/day. (Same As: Ultram) Jorge rial Ag Tylenol 2014-11-29 15:21:00 No Notes: Do not exceed 4 gm/day. (Same as: Tylenol) Arcadio Luong Lasix 2014-11-29 15:15:00 No Notes: (Same as: Lasix) MEDICATION WASTE Product Size: 40 mg Product Wasted: ___ mg Arcadio Gonzalez 2014-11-29 15:09:00 No 100 mg, Route: PO, Drug form: CAP, TID, Dosing Weight 61.619, kg, PRN Cough, Priority: NOW, Start date: 11/29/14 10:09:00, Duration: 30 day, Stop date: 12/29/14 10:08:00 [facility] [place] Lorazepam 2014-11-29 15:07:00 No Notes: (Sa me as: Ativan) [facility] Acetaminophen 325 MG / tramadol hydrochloride 37.5 MG Oral T ablet [Ultracet] 2014-11-29 15:06:00 No 1 tab, Route: PO, Drug Form: TAB, Dosing Weight 61.619, kg, Q12H, PRN, Start date: 11/29/14 10:06:00, Duration: 30 day, Stop date: 12/29/14 10:05:00, moderate pain [facility] pneumococcal capsular polysaccharide typ e 1 vaccine / pneumococcal capsular polysaccharide type 10A vaccine / pneumococcal capsular polysaccharide type 11A vaccine / pneumococcal capsular polysaccharide type 12F vaccine / pneumococcal capsular polysacchar 2014-11-29 14:00:00 No 0.5 mL, Route: IM, Daily, Start date: 11/29/14 9:00:00, Duration: 1 doses or times, Stop date: 11/29/14 9:00:00 [facility] Insulin, Aspart, Human 2014-11-29 07:03:00 No Notes: Roll in palms of hands gently; Do not shake vigorously. (Same as: NovoLOG) "single patient use only" Stable for 28 days at room temperature. Expires in days from Date [facility] Glucagon 2014-11-29 07:03:00 No 1 mg, Route: IM, Drug form: PDR/INJ, PRN, Dosing Weight 68.182, kg, PRN Blood Glucose Results, Start date: 11/29/14 2:03:00, Duration: 30 day, Stop date: 12/29/14 2:02:00 [facility] Dextrose 50% Syringe 2014-11-29 07:03:00 No 25 gm, 50 mL, Route: IVP, Drug Form: INJ, Dosing Weight 68.182, kg, PRN, PRN Blood Glucose Results, Start date: 11/29/14 2:03:00, Duration: 30 day, Stop date: 12/29/14 2:02:00 Arcadio Luong atropine 2014-11-29 06:56:00 No 0.5 mg, 5 mL, Route: IVP, Drug form: INJ, PRN, PRN Bradycardia, Start date: 11/29/14 1:56:00, Duration: 30 day, Stop date: 12/29/14 1:55:00 Arcadio Luong Nitroglycerin 2014-11-29 05:32:00 No Notes: (Same as:Nitroquick, Nitrostat) "Do Not Crush" Sublingual tablet Arcadio Luong Acetaminophen 325 MG / tramadol hydrochloride 37.5 MG Oral T ablet [Ultracet] 2014-11-29 03:15:00 Yes Special Instructions: takes with milk to prevent stomach upset Arcadio Luong LORazepam 1 mg oral tablet 2014-11-29 03:14:00 Yes 1 mg = 1 tab, PO, Bedtime, PRN Anxiety, # 20 tab, 0 Refill(s) Arcadio Luong prednisolone 1.2 MG/ML Ophthalmic Suspension [Pred Mild] 2014-11-29 03:13:00 Yes 1 drp, LEFT EYE, QID, # 10 ml, 0 Refill(s) Arcadio Luong travoprost 0.04 MG/ML Ophthalmic Solution [Travatan] 2 03:11:00 Yes 1 drp, BOTH EYES, Bedtime, # 3 ml, 0 Ref ill(s) Arcadio Luong Ketorolac Tromethamine 5 MG/ML Ophthalmic Solution 2014-11 03:11:00 Yes 1 drp, RIGHT EYE, QID, # 5 ml, 0 Refill( s) Arcadio Luong Aspirin 81 MG Enteric Coated Tablet 2014-11-29 03:10:00 Yes Special Instructions: with food Arcadio Luong Metformin hydrochloride 1000 MG Oral Tablet 2014-11-29 03:09:00 Yes Special Instructions: with meals Glory Luong metoprolol tartrate 25 mg oral tablet 2014-11-29 03:09:00 Y es Special Instructions: takes with milk Me fadi Luong digoxin 125 mcg (0.125 mg) oral tablet 2014-11-29 03:09:00 Yes Special Instructions: takes with milk to prevent stomach upset Arcadio Luong escitalopram 10 mg oral tablet 2014-11-29 03:08:00 Yes Special Instructions: takes with christopher shaffer atorvastatin 20 mg oral tablet 2014-11-29 03:08:00 Yes Special Instructions: takes with christopher [facility] shaffer losartan 25 mg oral tablet 2014-11-29 03:07:00 Yes Special Instructions: takes with christopher [facility] shaffer 3 ML Insulin Glargine 100 UNT/ML Prefilled Syringe [Lantus] 2014-11-29 03:06:00 Yes 30 unit, SUB-Q, Bedtime, # 1 pen(s), 3 Refill(s) Arcadio Luong Furosemide 40 MG Oral Tablet 2014-11-29 03:06:00 Yes Special Instructions: takes with christopher [facility] shaffer warfarin 5 mg oral tablet 2014-11-29 03:04:00 Yes Special Instructions: with christopher [facility] warfarin 6 mg oral tablet 2014-11-29 03:04:00 Yes Special Instructions: with christopher [facility] Saline Flush 0.9% 2014-11-28 23:58:00 No Notes: (Same as: BD Posiflush) [facility] Acetaminophen 2014-11-28 23:57:00 No 650 mg, Route: PO, Drug form: TAB, ONCE, Dosing Weight 68.182, kg, Priority: STAT, Start date: 11/28/14 18:57:00, Stop date: 11/28/14 18:57:00 M vandana Luong Aspirin 2014-11-28 23:51:00 No 325 mg, Route: PO, Drug form: ECTAB, ONCE, Dosing Weight 68.182, kg, Priority: STAT, Start date: 11/28/14 18:51:00, Stop date: 11/28/14 18:51:00 [facility] Lasix 2014-11-28 23:50:00 No 40 mg, Route: IVP, Drug form: INJ, ONCE, Dosing Weight 68.182, kg, Priority: STAT, Start date: 11/28/14 18:50:00, Stop date: 11/28/14 18:50:00 [facility] pr[facility]ant influenza virus vaccine, inactivated 2008-07-02 05:18:06 No SYSTEM SYSTEM 0.5 ml, Route: IM, Drug Form : INJ, ONCALL, Start date: 07/01/08 23:18:06, Stop date: 07/31/08 23:03:06 [facility] [place] Travfabrice Z SOLPeggy Yes [facility] Nitroglycerin 0.4 MG Sublingual Tablet Sublingual Nitr oglycerin 0.4 MG Sublingual Tablet Sublingual Yes DISSOLVE 1 TABLET UNDER THE TONGUE NEEDED FOR CHEST PAIN. [facility] Furosemide 40 MG Oral Tablet Furosemide 40 MG Oral Tablet Y es 1 QD TAKE 1 TABLET DAILY. [facility] Warfarin Sodium 1 MG Oral Tablet Warfarin Sodium 1 MG Oral Tablet Yes 1 QD TAKE 1 TABLET DAILY. [facility] Warfarin Sodium 5 MG Oral Tablet Warfarin Sodium 5 MG Oral Tablet Yes 1 QD TAKE 1 TABLET DAILY. [facility] Omeprazole 40 MG Oral Capsule Delayed Release Omeprazo le 40 MG Oral Capsule Delayed Release Yes 1 QD TAKE 1 CAPSULE DAILY [facility] metFORMIN HCl - 1000 MG Oral Tablet metFORMIN HCl - 1000 MG Oral Tabl et Yes QD TAKE 1 TABLET DAILY WITH FOOD. [facility] Aspirin 81 MG Oral Tablet Delayed Release Aspirin 81 M G Oral Tablet Delayed Release Yes 1 QD TAKE 1 TABLET DAILY. [facility] Escitalopram Oxalate 10 MG Oral Tablet Escitalopram Oxalate 10 M G Oral Tablet Yes 1 QD TAKE 1 TABLET DAILY. [facility] Losartan Potassium 25 MG Oral Tablet Losartan Potassium 25 MG Oral Tablet Yes 1 QD TAKE 1 TABLET DAILY. [facility] Digoxin 125 MCG Oral Tablet Digoxin 125 MCG Oral Tablet Yes 1 QD TAKE 1 TABLET DAILY. [facility] Metoprolol Tartrate 25 MG Oral Tablet Metoprolol Tartrate 25 MG Ora l Tablet Yes Q0.5D TAKE 1 TABLET TWICE DAILY. [facility] Ferrous Sulfate 325 (65 Fe) MG Oral Tablet Ferrous Sul fate 325 (65 Fe) MG Oral Tablet Yes Q0.5D TAKE 1 TABLET TWICE DAILY. [facility] Atorvastatin Calcium 20 MG Oral Tablet Atorvastatin Calcium 20 M G Oral Tablet Yes 1 QD TAKE 1 TABLET DAILY. [facility] Calcium 600+D3 TABS Calcium 600+D3 TABS Yes [facility] Vital Signs Vital Name Observation Time Observation Value Comments Source Temperature Oral (F) 2019-07-07 16:53:00 97.6 F [facility] Heart Rate 2019-07-07 16:53:00 [facility] Respitory Rate 2019-07-07 16:53:00 Nikhil Gr Systolic (mm Hg) 2019-07-07 16:53:00 [facility] [place] Diastolic (mm Hg) 2019-07-07 16:53:00 [facility] [place] Heart Rate 2019-07-07 15:19:00 [facility] Respitory Rate 2019-07-07 15:19:00 [facility] [place] Systolic (mm Hg) 2019-07-07 15:19:00 [facility] Diastolic (mm Hg) 2019-07-07 15:19:00 [facility] [place] Temperature Oral (F) 2019-07-07 14:17:00 97.7 F [facility] Heart Rate 2019-07-07 14:17:00 [facility] [place] Respitory Rate 2019-07-07 14:17:00 [facility] [place] Systolic (mm Hg) 2019-07-07 14:17:00 [facility] [place] Diastolic (mm Hg) 2019-07-07 14:17:00 [facility] [place] BMI Calculated 2019-07-07 10:07:00 [facility] Height 2019-07-07 08:50:00 160.02 cm [facility] [place] Weight 2019-07-07 08:50:00 [facility] BMI Calculated 2019-07-07 08:50:00 [facility] [place] Temperature Oral (F) 2019-07-07 08:20:00 98.0 F [facility] [place] Height 2019-07-07 01:38:00 160.02 cm [facility] [place] BMI Calculated 2019-07-07 01:38:00 [facility] Weight 2019-07-07 01:38:00 [facility] Temperature Oral (F) 2019-05-01 22:00:00 97.7 F [facility] Systolic (mm Hg) 2019-05-01 21:00:00 [facility] [place] Diastolic (mm Hg) 2019-05-01 21:00:00 [facility] Systolic (mm Hg) 2019-05-01 20:00:00 [facility] [place] Diastolic (mm Hg) 2019-05-01 20:00:00 [facility] [place] Systolic (mm Hg) 2019-05-01 19:00:00 [facility] Diastolic (mm Hg) 2019-05-01 19:00:00 [facility] [place] Temperature Oral (F) 2019-05-01 18:00:00 98.0 F [facility] Respitory Rate 2019-05-01 15:00:00 [facility] [place] Respitory Rate 2019-05-01 14:25:00 [facility] [place] Temperature Oral (F) 2019-05-01 14:25:00 98.1 F [facility] [place] Respitory Rate 2019-05-01 13:00:00 [facility] Height 2019-04-30 15:56:00 160.02 cm [facility] Weight 2019-04-30 15:56:00 [facility] BMI Calculated 2019-04-30 15:56:00 [facility] [place] Heart Rate 2019-04-10 19:45:00 [facility] [place] Respitory Rate 2019-04-10 19:45:00 [facility] Systolic (mm Hg) 2019-04-10 19:45:00 [facility] [place] Diastolic (mm Hg) 2019-04-10 19:45:00 [facility] [place] Heart Rate 2019-04-10 19:25:00 [facility] [place] Respitory Rate 2019-04-10 19:25:00 [facility] Systolic (mm Hg) 2019-04-10 19:25:00 [facility] Diastolic (mm Hg) 2019-04-10 19:25:00 [facility] [place] Height 2019-04-10 17:33:00 162.56 cm [facility] Weight 2019-04-10 17:33:00 [facility] BMI Calculated 2019-04-10 17:33:00 [facility] [place] BP Systolic 2019-04-10 14:52:00 116 mm[Hg] Location: RUE; Positi on: Sitting [facility] BP Diastolic 2019-04-10 14:52:00 64 mm[Hg] Location: RUE; Positi on: Sitting [facility] Height 2019-04-10 14:52:00 60 [in_us] [facility] Weight 2019-04-10 14:52:00 131.125 [lb_av] [facility] Body Mass Index Calculated 2019-04-10 14:52:00 25.61 kg/m2 [facility] Heart Rate 2019-04-10 14:52:00 73 /min Location: R Brachial Artery; [facility] Respiration Rate 2019-04-10 14:52:00 16 /min Quality: Normal [facility] O2 SAT 2019-04-10 14:52:00 98 % Source: [facility] BP Systolic 2019-03-20 16:15:00 110 mm[Hg] Location: RUE; Positi on: Sitting [facility] BP Diastolic 2019-03-20 16:15:00 64 mm[Hg] Location: RUE; Positi on: Sitting [facility] Height 2019-03-20 16:15:00 60 [in_us] [facility] Weight 2019-03-20 16:15:00 135 [lb_av] [facility] Body Mass Index Calculated 2019-03-20 16:15:00 26.37 kg/m2 [facility] Heart Rate 2019-03-20 16:15:00 60 /min Location: R Brachial Artery; [facility] Respiration Rate 2019-03-20 16:15:00 16 /min Quality: Normal U [facility] O2 SAT 2019-03-20 16:15:00 100 % Source: [facility] Respitory Rate 2019-03-04 17:59:00 [facility] Systolic (mm Hg) 2019-03-04 17:59:00 [facility] Diastolic (mm Hg) 2019-03-04 17:59:00 [facility] Respitory Rate 2019-03-04 17:45:00 [facility] Systolic (mm Hg) 2019-03-04 17:45:00 [facility] [place] Diastolic (mm Hg) 2019-03-04 17:45:00 [facility] [place] Respitory Rate 2019-03-04 17:30:00 [facility] [place] Systolic (mm Hg) 2019-03-04 17:30:00 [facility] Diastolic (mm Hg) 2019-03-04 17:30:00 [facility] [place] Temperature Oral (F) 2019-03-04 16:35:00 98.1 F [facility] Temperature Oral (F) 2019-03-04 15:09:00 98.5 F [facility] [place] Height 2019-03-04 14:45:00 162.56 cm [facility] Weight 2019-03-04 14:45:00 [facility] BMI Calculated 2019-03-04 14:45:00 [facility] [place] Temperature Oral (F) 2019-01-30 22:00:00 98.4 F [facility] Heart Rate 2019-01-30 22:00:00 [facility] [place] Respitory Rate 2019-01-30 22:00:00 [facility] [place] Systolic (mm Hg) 2019-01-30 22:00:00 [facility] Diastolic (mm Hg) 2019-01-30 22:00:00 [facility] Systolic (mm Hg) 2019-01-30 20:05:00 [facility] Diastolic (mm Hg) 2019-01-30 20:05:00 [facility] Heart Rate 2019-01-30 20:05:00 [facility] Respitory Rate 2019-01-30 20:05:00 [facility] Temperature Oral (F) 2019-01-30 20:05:00 98.2 F [facility] Height 2019-01-30 20:05:00 162.56 cm [facility] BMI Calculated 2019-01-30 20:05:00 [facility] [place] Weight 2019-01-30 20:05:00 [facility] Weight 2018-12-10 16:10:00 [facility] Height 2018-12-10 16:10:00 160.02 cm [facility] BMI Calculated 2018-12-10 16:10:00 [facility] Respitory Rate 2018-12-10 16:10:00 [facility] Heart Rate 2018-12-10 16:10:00 [facility] Temperature Oral (F) 2018-12-10 16:10:00 97.4 F [facility] [place] Systolic (mm Hg) 2018-12-10 16:10:00 [facility] [place] Diastolic (mm Hg) 2018-12-10 16:10:00 [facility] Height 2018-09-03 15:02:00 160.02 cm [facility] Weight 2018-09-03 15:02:00 [facility] [place] BMI Calculated 2018-09-03 15:02:00 [facility] Systolic (mm Hg) 2018-09-03 15:02:00 [facility] Diastolic (mm Hg) 2018-09-03 15:02:00 [facility] [place] Temperature Oral (F) 2018-09-03 15:02:00 97.4 F [facility] Respitory Rate 2018-09-03 15:02:00 [facility] Heart Rate 2018-09-03 15:02:00 [facility] Height 2018-05-02 16:05:00 160.02 cm [facility] [place] BMI Calculated 2018-05-02 16:05:00 [facility] [place] Weight 2018-05-02 16:05:00 [facility] Temperature Oral (F) 2018-05-02 16:05:00 98.3 F [facility] Heart Rate 2018-05-02 16:05:00 [facility] [place] Respitory Rate 2018-05-02 16:05:00 [facility] [place] Systolic (mm Hg) 2018-05-02 16:05:00 [facility] [place] Diastolic (mm Hg) 2018-05-02 16:05:00 [facility] [place] Height 2018-04-03 16:53:00 160.02 cm [facility] [place] Weight 2018-04-03 16:53:00 [facility] BMI Calculated 2018-04-03 16:53:00 [facility] Systolic (mm Hg) 2018-04-03 16:53:00 [facility] Diastolic (mm Hg) 2018-04-03 16:53:00 [facility] Heart Rate 2018-04-03 16:53:00 [facility] [place] Temperature Oral (F) 2018-04-03 16:53:00 98.0 F [facility] Respitory Rate 2018-04-03 16:53:00 [facility] [place] Temperature Oral (F) 2018-02-26 20:24:00 98.2 F [facility] Heart Rate 2018-02-26 20:24:00 [facility] Systolic (mm Hg) 2018-02-26 20:24:00 [facility] [place] Diastolic (mm Hg) 2018-02-26 20:24:00 [facility] [place] Respitory Rate 2018-02-26 20:24:00 [facility] [place] Heart Rate 2018-02-26 15:36:00 [facility] Temperature Oral (F) 2018-02-26 15:36:00 98.3 F [facility] [place] Systolic (mm Hg) 2018-02-26 15:36:00 [facility] Diastolic (mm Hg) 2018-02-26 15:36:00 [facility] Respitory Rate 2018-02-26 15:36:00 [facility] [place] Respitory Rate 2018-02-26 12:10:00 [facility] Heart Rate 2018-02-26 12:10:00 [facility] [place] Systolic (mm Hg) 2018-02-26 12:10:00 [facility] Diastolic (mm Hg) 2018-02-26 12:10:00 [facility] [place] Temperature Oral (F) 2018-02-26 12:10:00 97.8 F [facility] Height 2018-02-26 03:10:00 165.1 cm [facility] [place] BMI Calculated 2018-02-26 03:10:00 [facility] [place] Weight 2018-02-26 03:10:00 [facility] [place] Weight 2018-02-25 17:59:00 [facility] BMI Calculated 2018-02-25 17:59:00 [facility] [place] Height 2018-02-25 17:59:00 160.02 cm [facility] [place] BMI Calculated 2018-01-01 18:52:00 [facility] [place] Weight 2018-01-01 18:52:00 [facility] [place] Height 2018-01-01 18:52:00 160.02 cm [facility] Respitory Rate 2018-01-01 18:52:00 [facility] [place] Temperature Oral (F) 2018-01-01 18:52:00 97.1 F [facility] [place] Heart Rate 2018-01-01 18:52:00 [facility] [place] Systolic (mm Hg) 2018-01-01 18:52:00 [facility] Diastolic (mm Hg) 2018-01-01 18:52:00 [facility] Weight 2017-07-11 17:49:00 [facility] [place] BMI Calculated 2017-07-11 17:49:00 [facility] Height 2017-07-11 17:49:00 160.02 cm [facility] Heart Rate 2017-07-11 17:49:00 [facility] Respitory Rate 2017-07-11 17:49:00 [facility] Temperature Oral (F) 2017-07-11 17:49:00 98.2 F [facility] Systolic (mm Hg) 2017-07-11 17:49:00 [facility] [place] Diastolic (mm Hg) 2017-07-11 17:49:00 [facility] [place] BMI Calculated 2017-07-05 16:55:00 [facility] [place] Weight 2017-07-05 16:55:00 [facility] Height 2017-07-05 16:55:00 160.02 cm [facility] [place] Temperature Oral (F) 2017-07-05 16:55:00 100.9 F [facility] Heart Rate 2017-07-05 16:55:00 [facility] [place] Respitory Rate 2017-07-05 16:55:00 [facility] [place] Systolic (mm Hg) 2017-07-05 16:55:00 [facility] Diastolic (mm Hg) 2017-07-05 16:55:00 [facility] Temperature Oral (F) 2017-06-21 15:30:00 99.5 F [facility] [place] Respitory Rate 2017-06-21 15:30:00 [facility] Heart Rate 2017-06-21 15:30:00 [facility] [place] Systolic (mm Hg) 2017-06-21 15:30:00 [facility] [place] Diastolic (mm Hg) 2017-06-21 15:30:00 [facility] [place] BMI Calculated 2017-06-21 15:30:00 [facility] Weight 2017-06-21 15:30:00 [facility] [place] Height 2017-06-21 15:30:00 160.02 cm [facility] Heart Rate 2014-12-01 17:00:00 [facility] [place] Respitory Rate 2014-12-01 17:00:00 [facility] [place] Systolic (mm Hg) 2014-12-01 17:00:00 [facility] Diastolic (mm Hg) 2014-12-01 17:00:00 [facility] [place] Temperature Oral (F) 2014-12-01 17:00:00 97.7 F [facility] Temperature Oral (F) 2014-12-01 13:00:00 98.5 F [facility] [place] Systolic (mm Hg) 2014-12-01 13:00:00 [facility] Diastolic (mm Hg) 2014-12-01 13:00:00 [facility] Heart Rate 2014-12-01 13:00:00 [facility] [place] Respitory Rate 2014-12-01 13:00:00 [facility] Systolic (mm Hg) 2014-12-01 09:00:00 [facility] [place] Diastolic (mm Hg) 2014-12-01 09:00:00 Jovan beasley [place] Respitory Rate 2014-12-01 09:00:00 Nikhil Gr Temperature Oral (F) 2014-12-01 09:00:00 98.4 F [facility] Heart Rate 2014-12-01 09:00:00 [facility] [place] BMI Calculated 2014-11-29 07:04:00 Nikhil garcias [place] Weight 2014-11-29 07:04:00 [facility] [place] Height 2014-11-29 07:04:00 162.56 cm [facility] Weight 2014-11-28 22:06:00 [facility] [place] Procedures Procedure Date / Time Performed Performing Clinician Capo e [N] 2D Echo complete, with Doppler [id number] 2019-04-30 00:00:00 [facility] Complete PFTs w/DLCO and Lung Volumes 2019-03-20 00:00:00 [facility] CTA Chest/Abd/Pelvis TAVR [id number] 2019-03-20 00:00:00 [facility] CTA Heart/Coronary art TAVR [id number] 2019-03-20 00:00:00 [facility] [N] 2D Echo complete, with Doppler [id number] 2019-03-15 00:00:00 [facility] Diabetic retinopathy screening<sup>1</sup> 2017-02-08 05:00:00 [facility] Mitral valve operation<sup>2</sup> 2011-05-27 00:00:00 [facility] Cardiac pacemaker procedure Jorge [facility] [place] Cholecystectomy [facility] Operation on uterus<sup>3</sup> [facility] Plan of Care Planned Activity Planned Date Details Comments Source Diagnostic Test Pending 2019-03-20 00:00:00 [N] 2D Echo comp lete, with Doppler [id number] [code = [N] 2D Echo complete, with Doppler [id number]] [facility] Future Scheduled Test CTA Chest/Abd/Pelvis TAVR [id number] [code = 78461-87] Approx [id number] [facility] Future Scheduled Test CTA Heart/Coronary art TAV R [id number] [code = 43324-17] Approx [id number] [facility] Future Scheduled Test [N] 2D Echo comple te, with Doppler 72236 [code = [N] 2D Echo complete, with Doppler 67178] Approx [id number] [facility] Future Scheduled Test [N] 2D Echo comple te, with Doppler 67888 [code = [N] 2D Echo complete, with Doppler 88648] Approx [id number] [facility] Encounters Start Date/Time End Date/Time Encounter Type Admission Type [facility] Care Department Encounter ID Source 2019-06-24 12:16:23 Outpatient [facility] CAR [id number] [facility] 2019-04-30 09:40:00 Inpatient [facility] CAR [id number] [facility] 2019-04-07 13:08:30 Inpatient [facility] CAR [id number] [facility] 2019-12-17 15:13:11 2019-12-18 23:59:59 Outpatient [facility] [id number] 2019-10-05 12:28:00 2019-10-05 23:59:00 Outpatient Richard Ying [id number] 2019-08-14 11:56:58 2019-08-15 23:59:59 Outpatient [facility] [id number] 2019-07-06 19:28:17 2019-07-07 15:13:00 Outpatient Amadeo Foster [facility] [id number] 2019-07-07 01:44:00 2019-07-07 01:44:00 Outpatient E [facility] MED [id number] [facility] 2019-04-30 09:40:00 2019-05-01 18:45:00 Outpatient Estephania Coelho [facility] [id number] 2019-04-30 13:00:00 2019-04-30 13:00:00 Appointment; PROCEDURES, [place] RDIO PROCEDURES, CARDIO UTP UTP [id number] [facility] 2019-04-14 10:44:44 2019-04-15 23:59:59 Outpatient [facility] MG [id number] 2019-04-10 10:25:00 2019-04-10 23:59:00 Outpatient Estephania Coelho [facility] [id number] 2019-04-10 14:40:00 2019-04-10 14:40:00 Appointment; TIEN COELHO M.D. DHOBLE, ABHIJEET, M.D. [facility] Cardiothoracic & Vascular [facility] [id number] [facility] 2019-04-10 10:25:00 2019-04-10 10:25:00 Outpatient [facility] CAR [id number] [facility] 2019-03-20 15:00:00 2019-03-20 15:00:00 Appointment; TIEN COELHO M.D. DHOBLE, ABHIJEET, M.D. [facility] [id number] [facility] 2019-03-20 14:00:00 2019-03-20 14:00:00 Appointment; TIEN COELHO M.D. DHOBLE, ABHIJEET, M.D. [facility] [id number] [facility] 2019-03-04 09:15:00 2019-03-04 13:30:00 Outpatient Eugenie Rojas [facility] [id number] 2019-03-04 09:15:00 2019-03-04 09:15:00 Outpatient [facility] [address] [place] [address] 2019-02-16 15:32:00 2019-02-16 18:05:00 Departed Emergency Room [facility] [id number] [facility] 2019-01-30 14:56:39 2019-01-30 17:00:00 Outpatient Li Hurley [facility] [id number] 2018-12-10 11:00:00 2018-12-10 23:59:59 Outpatient Mohini Dee [facility] [id number] 2018-11-25 16:32:11 2018-11-26 23:59:59 Outpatient [facility] [id number] 2018-09-03 10:15:00 2018-09-03 23:59:59 Outpatient Mohini Dee [facility] [id number] 2018-08-13 14:13:00 2018-08-14 23:59:59 Outpatient [facility] [id number] 2018-08-12 10:15:00 2018-08-12 10:15:00 Outpatient Mohini Dee [facility] [id number] 2018-07-03 11:00:00 2018-07-03 11:00:00 Outpatient Mohini Dee [facility] [id number] 2018-07-03 11:00:00 2018-07-03 11:00:00 Outpatient Mohini Dee [facility] [id number] 2018-07-01 09:07:00 2018-07-02 23:59:59 Outpatient [facility] [id number] 2018-07-01 09:07:00 2018-07-02 23:59:59 Outpatient [facility] [id number] 2018-06-17 16:52:00 2018-06-18 23:59:59 Outpatient [facility] [id number] 2018-06-17 16:52:00 2018-06-18 23:59:59 Outpatient [facility] [id number] 2018-05-02 12:00:00 2018-05-02 23:59:59 Outpatient Mohini Dee [facility] [id number] 2018-04-03 11:30:00 2018-04-03 23:59:59 Outpatient Mohini Dee [facility] [id number] 2018-02-25 12:55:00 2018-02-26 17:40:00 Outpatient Jennifer Enamorado [facility] [id number] 2018-01-31 14:49:00 2018-02-01 23:59:59 Outpatient [facility] [id number] 2018-01-01 14:30:00 2018-01-01 23:59:59 Outpatient Mohini Dee [facility] [id number] 2017-12-30 15:08:00 2017-12-31 23:59:59 Outpatient [facility] [id number] 2017-12-20 16:30:00 2017-12-21 23:59:59 Outpatient [facility] [id number] 2017-11-05 12:15:00 2017-11-06 23:59:59 Outpatient [facility] [id number] 2017-10-24 10:15:00 2017-10-24 10:15:00 Outpatient Mohini Dee [facility] [id number] 2017-10-07 15:47:00 2017-10-08 23:59:59 Outpatient [facility] [id number] 2017-10-01 15:29:00 2017-10-02 23:59:59 Outpatient [facility] [id number] 2017-10-01 15:29:00 2017-10-02 23:59:59 Outpatient [facility] [id number] 2017-07-11 11:45:00 2017-07-11 23:59:59 Outpatient Mohini Dee [facility] [id number] 2017-07-05 10:30:00 2017-07-05 23:59:59 Outpatient Mohini Dee [facility] [id number] 2017-07-05 10:30:00 2017-07-05 23:59:59 Outpatient Mohini Dee [facility] [id number] 2017-06-26 15:22:00 2017-06-27 23:59:59 Outpatient [facility] [id number] 2017-06-26 15:22:00 2017-06-27 23:59:59 Outpatient [facility] [id number] 2017-06-25 12:18:00 2017-06-26 23:59:59 Outpatient [facility] [id number] 2017-06-21 09:15:00 2017-06-21 23:59:59 Outpatient Mohini Dee [facility] [id number] 2017-05-14 10:16:00 2017-05-14 23:59:00 Outpatient Mohini Dee [facility] [place] [id number] 2014-11-28 17:02:00 2014-12-01 14:23:00 Outpatient Amadeo Foster IE IE [id number] Results Test Description Test Time Test Comments Results Result Comments Source CARDIAC ENZYMES 2019-07-07 18:06:00 <0.02 [facility] CARDIAC ENZYMES 2019-07-07 13:35:00 <0.02 [facility] CHEM PANEL 2019-07-07 13:35:00 160 [facility] CHEM PANEL 2019-07-07 13:35:00 28 [facility] CHEM PANEL 2019-07-07 13:35:[facility]07 [facility] [place] [facility]-07-07 13:35[facility] [place] [facility] 2019-07-07 13:35:00 [facility] 2019-07-07 13:35:[facility] [place] [facility] 2019-07-07 13:35:00 [facility] 2019-07-07 13:35:00 [facility] [place] [facility] 2019-07-07 13:35:00 [facility] 2019-07-07 13:35:00 [facility]-07-07 13:35:00 [facility]-07-07 13:35:00 [facility] 2019-07-07 13:35:00 [facility] [place] [facility] 2019-07-07 13:35:00 [facility] [place] [facility] 2019-07-07 13:35:00 [facility] 2019-07-07 13:35:00 [facility] 2019-07-07 13:35:00 Test Item A/G Ratio (test code = A/G Ratio) 0.9 1 0.7-1.6 [facility] SMHJR1822-73-22 13:35:000.4[facility]annCHE[facility] PANEL 2019-07-07 13:35:001.9[facility]annCHE[facility] YHTMS5608-63-63 13:35:003.4[facility] EugwlxlPVBOFLKDWB9237-58-96 13:35:004.1[facility] GppzbxjKGSSSHGRQJ6328-14-62 13:35:003.39[facility] JjbjnxcUOZEZUMAOL4894-70-91 13:35:007.9[facility] [place] TQSRWBOFNH7507-87-68 13:35:0025.2[facility] BzmzfscCDBNOSSTNQ1606-29-67 13:35:00 74.1[facility] KiittjdZFWIEJDXVE2377-79-72 13:35:00* Test Item Value Reference Range Interpretation Comments MCH (test code = MCH) 23.4 pg 27.0-31.0 [facility] HjapauvBHGBAKNJTI5101-43-58 13:35:0031.6[facility]annHEMATOLOGY 2019-07-07 13:35:0018.3[facility] AjkpqjfPABADBKYBM5954-23-98 13:35:74688Snobctwi WdqtwbvEPQWUUWSHL9540-31-63 13:35:008.8[facility] PdtzekfUCXFVZPDPE9853-50-64 13:35:00* Test Item Value Reference Range Interpretation Comments PT (test code = PT) 26.3 s 12.0-14.7 [facility] TkeqkmuNDWGFDVFFC9503-43-45 13:35:00* Test Item Value Reference Range Interpretation Comments INR (test code = INR) 2.37 1 0.85-1.17 [facility] OyxveapCFQALKNSGN2766-27-45 13:35:00* Test Item Value Reference Range Interpretation Comments PTT (test code = PTT) 48.5 s 22.9-35.8 [facility] ZkjdzgzUCJUYIFEGK0458-05-19 13:35:0057.7[facility]annHEMATOLOGY 2019-07-07 13:35:0028.4[facility] UbckntlQVMYLBSWEE8195-12-20 13:35:008.9[facility] DwkixkfVRYEWTAZGD8062-70-99 13:35:004.5[facility] NopzfewKASMHVFOGM0579-54-10 13:35:000.5[facility] EbehdazTVDBWXUTCN1294-89-15 13:35:002.4[facility] [place] ATGGGGWKYY5573-48-01 13:35:001.2[facility] DcyzjqfWSZONVDRBP7284-60-96 13:35:000.4 [facility] RlvuyxgMGAYBQKMQL3204-57-66 13:35:000.2[facility]annHEMATOLOGY 2019-07-07 13:35:001+ *ABN*(07/07/19 7:35 AM)[facility]annCARDIAC ENZYMES 2019-07-07 01:45:0066[facility]annCARDIAC OPSEARB5715-93-60 01:45:00<0.02 [facility]annCARD[facility]AC ISDSSNY5741-46-92 01:45:67947Qbfajdlt HermannCHEM PANEL 2019-07-07 01:45:39974Zagqgiqa HermannCHEM LXVKW4294-50-73 01:45:0028[facility]annCHEM JEULL5921-45-76 01:45:001.13[facility]annCHEM SMIHX9575-01-33 01:45:57461Ntnagniq HermannCHEM VPUSH1444-98-17 01:45:004.4[facility]annCHEM AVOPA3492-31-60 01:45:66652[place]oc HermannCHEM NYLZO0377-64-01 01:45:0027 [facility] BTTUB4973-76-27 01:45:008.8[facility]annCHEM PANEL 2019-07-07 01:45:007.9[facility]annCHE[facility] UIEDV0287-33-00 01:45:003.7[facility]annCHEM ATLGA6754-25-46 01:45:0018[facility]annCHE[facility] TVWHV5832-21-23 01:45:0017[facility]annCHE[facility] BCTZP3620-90-13 01:45:82523Hfszbfuw HermannCHEM AJLOF4826-49-50 01:45:000.5[facility]annCHEM FULZW0232-71-65 01:45:0011.4 [facility]CHE[facility] GTPHD9294-22-57 01:45:00* Test Item Value Reference Range Interpretation Comments B/C Ratio (test code = B/C Ratio) 25 1 6-25 [facility] JYBOZ3060-00-76 01:45:004.2[facility]annCHEM PANEL 2019-07-07 01:45:00* Test Item Value Reference Range Interpretation Comments A/G Ratio (test code = A/G Ratio) 0.9 1 0.7-1.6 [facility] SEKQF3671-25-55 01:45:0048[facility]annCHEM PANEL 2019-07-07 01:45:001.9[facility] HbqvuibXBBBLNGMCU5488-99-27 01:45:005.1[facility] QwyjbacVGBAPPVTHD9194-28-19 01:45:003.58[facility] BxxvlghHRZMXYNYCR9761-02-69 01:45:008.4[facility] DsfdtaeTRFWPHYTRB8018 01:45:0026.6[facility] SFFKGJFKNM4643-94-41 01:45:0074.2[facility] PoqryqaFVSZGIKDXH3210-07-80 01:45:00* Test Item Value Reference Range Interpretation Comments MCH (test code = MCH) 23.3 pg 27.0-31.0 [facility] OslvkdiTGUWIWXJCV0634-12-73 01:45:0031.5[facility]annHEMATOLOGY 2019-07-07 01:45:0018.3[facility] NjrahrwCAWFVFNTMW7953-27-70 01:45:60179Kegpptkw PaznqvfLMVLJKODNZ3214-11-56 01:45:008.9[facility] QcyghveASWCKALYCB2746-78-12 01:45:00* Test Item Value Reference Range Interpretation Comments PT (test code = PT) 24.2 s 12.0-14.7 [facility] ZdicuafCSSRDXCOAH3793-72-38 01:45:00* Test Item Value Reference Range Interpretation Comments INR (test code = INR) 2.13 1 0.85-1.17 [facility] LmylyltUKIDUYQMDJ0177-16-00 01:45:00* Test Item Value Reference Range Interpretation Comments PTT (test code = PTT) 47.2 s 22.9-35.8 [facility] WkzfpvfZHQWVLVPRD7958-25-82 01:45:0060.4[facility]annHEMATOLOGY 2019-07-07 01:45:0026.4[facility] EwmbvfnQZMSUBNEOL2753-20-64 01:45:008.4[facility] WiiugsyDPNPRNNGXP3211-94-41 01:45:004.2[facility] JenpewbXOQFOXVMDX4464-29-32 01:45:000.6[facility] RntiqqlMTZHMZSFSX3791-36-02 01:45:003.1[facility] URSBMDRJZP8333-52-22 01:45:001.3[facility] BuseqsdARSOPVXXFJ5506-29-61 01:45:000.4 [facility] MybowdxPVTQIGGNEL8094-66-59 01:45:000.2[facility]annHEMATOLOGY 2019-07-07 01:45:001+ *ABN*(07/06/19 7:45 PM)[facility]annCHEM XTRBT0825-88-76 08:45:43063Npjurghm HermannCHEM XUHEJ4627-93-02 08:45:0023[facility]annCHEM WYGNL4866-17-21 08:45:000.88[facility]annCHEM YQQGK6329-56-24 08:45:30317 [facility]annCHE[facility] TUUKD4709-73-41 08:45:004.0[facility]annCHEM PANEL 2019-05-01 08:45:73540Yyyuqnxw HermannCHEM DHPWL5487-44-43 08:45:0024[facility]annCHEM MGJZN7717-85-10 08:45:0011.0[facility]annCHEM SWPPL9142-37-20 08:45:008.6[facility]annCHEM MGLCX9424-98-44 08:45:0065[facility]annCHEM IROHN3992-83-01 08:45:002.3[facility] DqlzxjlCVEWWEAHED4508-11-51 08:45:0065.7 [facility] ZpkdkefHOHMLHXRIL5504-50-97 08:45:0023.2[facility]annHEMATOLOGY 2019-05-01 08:45:008.8[facility] QbodexpTGZZXENCOL6641-84-17 08:45:001.7[facility] CjlnfxaPZPMIVYHUY0251-05-96 08:45:000.6[facility] BrlhyvuDNPWJGNVQO7493-96-70 08:45:003.1[facility] QxasfasVPKPTBMJEG5094-65-14 08:45:001.1[facility] [place] LFHRDCEGKS2567-55-09 08:45:000.4[facility] IedkrrkJJOUGUHRRG1655-63-76 08:45:000.1 [facility] PodzhvaFRZVTHSZVY4452-97-99 08:45:002+ *ABN*(05/01/19 2:45 AM)[facility] CtwwxtmKMEIJPBKKM4647-73-36 08:45:004.7[facility] ElknoghMMRJPSNBVB1609-87-73 08:45:003.32[facility] FrckewqZYUMIRGDGR6420-89-33 08:45:007.7[facility] ZDQHLOGWUU2527-36-15 08:45:0023.6[facility] UkrieblRZIIWLWACT9052-17-08 08:45:00 71.2[facility] UuhvalzRJDWQQTHTS1462-40-04 08:45:00* Test Item Value Reference Range Interpretation Comments MCH (test code = MCH) 23.3 pg 27.0-31.0 [facility] KwvsmhmAVMJCHVVAW3116-32-75 08:45:0032.7[facility]annHEMATOLOGY 2019-05-01 08:45:0020.1[facility] GyqxvbqORYWIRIBRO7573-55-67 08:45:51566Nkyqamkl LbzsclfTWSXAMNKAA1993-99-87 08:45:009.0[facility] GjoewmrORBBQVYCQK2573-32-29 08:45:00* Test Item Value Reference Range Interpretation Comments PT (test code = PT) 15.8 s 12.0-14.7 [facility] IjzreojYIGUEDNGKG5937-65-67 08:45:00* Test Item Value Reference Range Interpretation Comments INR (test code = INR) 1.29 1 0.85-1.17 [facility] QxspwvlICPRYIOLNA2152-72-59 08:45:00* Test Item Value Reference Range Interpretation Comments PTT (test code = PTT) 52.6 s 22.9-35.8 [facility] HermannCHEM IQBNC3543-40-18 23:18:0073[facility]annCHEM PANEL 2019-04-30 23:18:0025[facility]annCHEM UVTJE8252-51-68 23:18:000.88[facility]annCHEM GJNAE1916-83-32 23:18:83082Qwauorcp HermannCHEM PGXFL9964-40-98 23:18:003.7[facility]annCHEM KJXHM1174-82-29 23:18:87520Tynjjbif [facility]annCHEM ZSLUS7026-16-00 23:18:0028[facility]annCHEM XVRLU3442-81-89 23:18:008.6 [facility]annCHE[facility] AMIRO0211-86-32 23:18:0065[facility]annCHEM PANEL 2019-04-30 23:18:0010.7[facility]annCHEM VAYKY2567-75-81 23:18:001.9[facility] YgkwhbqNXHPDHVSAG7628-89-18 23:18:004.6[facility] BaivfipTBFYCIJHKZ2359-28-88 23:18:003.29[facility] QydwqmdNMPDKGVIVS1449-95-24 23:18:007.5[facility] [place] MGLMQLKYOH7157-84-57 23:18:0023.5[facility] FihuikoEPJLKTCHRS0115-50-41 23:18:00 71.2[facility] IdbxxtoOIFAIBJWNC0373-14-99 23:18:00* Test Item Value Reference Range Interpretation Comments MCH (test code = MCH) 22.8 pg 27.0-31.0 [facility]ujPMBSJMLYWH0331-41-29 23:18:0032.1[facility]annHEMATOLOGY 2019-04-30 23:18:0020.3[facility] ZxojoddSDICWLRVXH9939-95-65 23:18:71233Vuvuasml JuhljfqZRAOAYRTMB7925-09-49 23:18:009.2[facility] FjekbubCIMVJIZZZL8671-41-64 23:18:00* Test Item Value Reference Range Interpretation Comments PT (test code = PT) 15.8 s 12.0-14.7 [facility]landMzrvtbbTXICXLYKCJ2708-98-53 23:18:00* Test Item Value Reference Range Interpretation Comments INR (test code = INR) 1.29 1 0.85-1.17 [facility]landMbctvtgOGNTWGIGRH7651-95-93 23:18:00* Test Item Value Reference Range Interpretation Comments PTT (test code = PTT) 50.1 s 22.9-35.8 [facility] QpkvyvuFQIKLJGPEY5450-15-27 23:18:0058.9[facility]annHEMATOLOGY 2019-04-30 23:18:0028.1[facility] XtgnsdfEGMZOLIZVT7220-80-74 23:18:007.3[facility] YqekknqRQWADVNTOS6555-80-94 23:18:005.2[facility] NfvehcfBSFTBUOWLB3981-69-15 23:18:000.5[facility] WbxswytZNKYNRQKAJ7835-53-34 23:18:002.7[facility] [place] BDHKSTMTCX8156-44-15 23:18:001.3[facility] SztqoftBADWZPTATJ9951-62-50 23:18:000.3 [facility] UtkmfkgZJPOHQWXKS8938-13-39 23:18:000.2[facility] HermannHEMATOLOGY 2019-04-30 23:18:002+ *ABN*(04/30/19 5:18 PM)[facility]annPARATHYROID PROFILE 2019-04-30 23:18:001.03[facility] HermannPARATHYROID CNLIYHB2026-38-08 23:18:00 1.03[facility]annBLOOD BANK LMVNLJR3446-23-34 16:01:00Negative (04/30/19 10:01 AM)[facility]annCARDIAC NAUKTUU4986-75-90 16:01:60979Ibakndck HermannCHEM WUVNR6775-46-51 16:01:002.3[facility] MbdbbcqLJWNJBTMKAXA5591-51-86 16:01:0013.9 [facility] HxzasajCDJPXVIXHKKK4941-41-79 16:01:00* Test Item Value Reference Range Interpretation Comments B/C Ratio (test code = B/C Ratio) 31 1 6-25 [facility] BaqoxldMQNNPWCLXUNB7705-99-98 16:01:004.0[facility] HermannELECTROLYTES 2019-04-30 16:01:00* Test Item Value Reference Range Interpretation Comments A/G Ratio (test code = A/G Ratio) 1.0 1 0.7-1.6 [facility] IiohdqvBRKYAJKIVEIV3324-32-39 16:01:0069[facility] HermannELECTROLYTES 2019-04-30 16:01:0030[facility] YoqhsmjWIXMZNJFFDEQ8481-61-42 16:01:000.97[facility] VuaoedxKXKBJBHZCXJI9252-93-08 16:01:01611Qvqnwhwb IasckatNUDUFYFDUSHS6028-89-59 16:01:003.9[facility] CotfpmyCPWAORLMMZRI4938-54-91 16:01:98588Bpxntbuk Ag OTGICCNGDVIR5613-08-37 16:01:0029[facility] UfixahzXTUVRKHZZOAK6360-79-62 16:01:00 9.8[facility] MpewvfrBNXSXBLWMCTK3252-97-10 16:01:0058[facility] HermannELECTROLYTES 2019-04-30 16:01:0021[facility] GfgwjmdSHVDEVFYEYCA1121-30-31 16:01:004.2[facility] HmvcscdTLIVGOXTVRGU7471-83-05 16:01:0091[facility] NnnwenvZLEXDTQDPUJQ4884-38-76 16:01:000.8[facility] PojsaphYBTPPSYWLAAN6984-66-28 16:01:008.2[facility] [place] TOMLGEELFVTU5335-65-40 16:01:0029[facility] VstpiapZXUUXBSGMH7755-55-53 16:01:00 5.8[facility] YpygozxPYAILRYBDP8420-24-09 16:01:004.00[facility] HermannHEMATOLOGY 2019-04-30 16:01:009.1[facility] SfqgqeoOABMVYFEOE9612-65-79 16:01:0028.5[facility] JwjuwlnAUTICJPDXR3890-55-11 16:01:0071.2[facility] UmuwlbjMNIJNSKNGS8643-99-06 16:01:00* Test Item Value Reference Range Interpretation Comments MCH (test code = MCH) 22.7 pg 27.0-31.0 [facility] KgwxlnvVQEBHEILFX5232-40-83 16:01:0031.9[facility] HermannHEMATOLOGY 2019-04-30 16:01:0020.6[facility] VfhfqbnXVBXIGNBWH1712-14-50 16:01:85680Bqpjeazl LgpfddlSUIJDZGBYL1657-85-50 16:01:009.0[facility] HjvseibEKSNFUMPKU0307-59-28 16:01:00* Test Item Value Reference Range Interpretation Comments PT (test code = PT) 14.4 s 12.0-14.7 [facility] WiwtywzFKYPSNJTBP5296-16-82 16:01:00* Test Item Value Reference Range Interpretation Comments PTT (test code = PTT) 47.4 s 22.9-35.8 [facility] GfkbqxzKPYZSGRTPK9205-04-32 16:01:00* Test Item Value Reference Range Interpretation Comments INR (test code = INR) 1.14 1 0.85-1.17 [facility] YumttzfMHZPUSLBMC4795-27-73 16:01:0070.3[facility] HermannHEMATOLOGY 2019-04-30 16:01:0020.3[facility] RczlsgcAPGSUOYVIJ4665-05-81 16:01:008.0[facility] ChsmmsyMWSSQYPHRD4706-31-93 16:01:000.9[facility] ZsiyaheMMQIPHJVKJ6148-26-50 16:01:000.5[facility] AbxintsPCHVSVCONT4185-54-61 16:01:004.1[facility] ENLBRYMLIA0982-91-01 16:01:001.2[facility] JaitkybAWRZBPKPHW5533-71-42 16:01:000.5 [facility] AtxkowuIZLULPUEXJ4390-79-18 16:01:000.1[facility] HermannHEMATOLOGY 2019-04-30 16:01:002+ *ABN*(04/30/19 10:01 AM)[facility]annURINE AND STOOL 2019-04-30 16:01:00Yellow *NA*(04/30/19 10:01 AM)[facility] STOOL 2019-04-30 16:01:00Clear (04/30/19 10:01 AM)[facility]ann[facility]INE [facility] STOOL 2019-04-30 16:01:00* Test Item Value Reference Range Interpretation Comments UA Spec Grav (test code = UA Spec Grav) 1.018 1 [facility]annUR[facility] AND NUTNU5493-28-71 16:01:00* Test Item Value Reference Range Interpretation Comments UA pH (test code = UA pH) 8.0 1 5.0-8.0 [facility] AND CXXGO3333-12-14 16:01:00Negative *NA*(04/30/19 10:01 AM)[facility]ann[facility] AND LZRQN5324-37-23 16:01:00Negative (04/30/19 10:01 AM) [facility] UTGZB8870-15-20 16:01:004.0[facility]annUR[facility] AND UTIUZ1531-23-20 16:01:00Negative (04/30/19 10:01 AM)[facility]ann[facility] AND TLXER7878-15-70 16:01:00Negative (04/30/19 10:01 AM)[facility] [address] [facility] OrganizationannBLOOD BANK KBXSJZO4896-11-06 15:56:00Product available (04/30/19 9:56 AM)[facility] BLOOD BANK FVZEWST6585-70-93 15:56:00Product available (04/30/19 9:56 AM)[facility] HermannCHEM KQORF9506-06-69 19:27:000.9[facility] HermannCHEM OUFOO3964-75-62 19:27:0064[facility] HermannCTA Chest/Abd/Pelvis TAVR [id number] 11:33:00 EXAM: VIR CT angiogram thorax abdomen and pelvis. TAVR protocolINDICATION: 73 ye ars old Female with aortic stenosisTECHNIQUE: Following the administration of in travenous contrast, 3 mm slicesfrom the thoracic inlet through the pubic symphys is were obtained in arterialphase. Images are reviewed on 3D workstation.COMPARI SON: CT abdomen pelvis performed October 03, 2012, simultaneously performedcardiac C TA April 10, 2019FINDINGS:Vascular Measurements:Ascending aorta: 37 mm x 37 mmAortic arch: 27 mm x 27 mmMid-descending thoracic aorta: 26 mm x 23 mmAort a at diaphragm: 27 mm x 25 mmAorta at celiac axis: 23 mm x 23 mmAorta at sup erior mesenteric artery: 18 mm x 18 mmMid-infrarenal aorta: 14 mm x 14 mmRig ht common iliac artery: 8 mm x 8 mmRight external iliac artery: 7 mm x 6 mmRight common femoral artery: 6 mm x 7 mmLeft common iliac artery: 9 mm x 8 mmLeft ext ernal iliac artery: 7 mm x 6 mmLeft common femoral artery: 7 mm x 6 mmRight subc lavian artery: 10 mm x 8 mmLeft subclavian artery: 7 mm x 8 mmCalcific scores:As cending aorta: 2Aortic arch: 3Descending thoracic aorta: 2Aorta at diaphragm: 2S uprarenal abdominal aorta: 2Infrarenal abdominal aorta: 30 :none1 :punctate calc ifications2 : <50% of vessel circumference is confluent calcification3 : >50% of vessel circumference is confluent calcificationOther vascular findings: Bovine arch variant. Moderate atherosclerotic diseaseinvolving the aorta.Nonvascular findings:Lower neck: The visible portions or the lower neck and thyroid are unremarkable.Axilla: Clear.Airway: Patent.Lungs and pleura: Small right pleural effusion. Scattered groundglassopacities and intralobular septal thickening is seen in the lower lobesbilaterally.There is a nodular opacity in the left lower lobe measuring 5 mm (series 8image 80).Mediastinum, azalea and intrathoracic lymph nodes: No enlarged mediastinal lymphnodes are appreciated.Heart, pericardium and great vessels: Marked cardiomegaly. For findings withinthe heart, refer to the simultaneously performed cardiac CTA.Liver: Normal. Dilated hepatic vein, likely related to heart failure.Biliary tree: No intra- or extrahepatic biliary ductal dilation.Gallbladder: Not visualized.Pancreas: Normal.Spleen: Splenule is pres ent. Splenomegaly, measures 13.7 cm in the craniocaudaldirection.Adrenals: Emma l.Kidneys and ureters: Bilateral subcentimeter hypodensities within the kidneysa re too small to characterize and statistically, are [...] visualized as well.Gastrointestinal tract:Stomach: Normal.Small bowel: Normal.Colon: Uninflam ed diverticula.Appendix: NormalPeritoneum, mesentery and retroperitoneum: Trace fluid is seen in the dependentpelvis and could be physiologic.Lymph nodes: Emma l.Bones: No acute abnormality.Soft tissues: Large fat-containing umbilical herni a.IMPRESSION: 1. Arterial measurements as described above. For findings within the heart,refer to the simultaneously performed cardiac CTA.2. Moderate atheros clerosis of the abdominal and thoracic aorta.3. Bilateral lung base predominant groundglass opacities and septal thickeninglikely represents pulmonary edema.4. Questionable 5 mm nodule in the left lower lobe. Optional CT can beperformed to 12 months to document stability.--This report was dictated by a Radiology Resi dent/Fellow/Physician Agricultural Consultant. Ihave personallyreviewed the images as well as the interpretation and agree with the findings.Read by: Anthony Holm MD Resident/Fellow/PhysicianAssistant: Anthony Holm MDDictated Date/time: 04/10/19 17:53Electronically Signed by: Mahesh Singh MD 04/12/1913:59FINAL REPORTUnLogan [facility] PhysiciansWIA Heart/Coronary art TAVR [id number] 11:33:00EXAM: CTA HEART WITH CONTRASTDATE: 04/10/2019 11:33 CSTINDICATION: - aortic stenosis. Aortic stenosis, TAVR candidate.COMPARISON: No prior CT heart available for comparison.TECHNIQUE:Contrast imaging was performed on a [employer] [address] scannerutilizing a single breath hold, at 780 mA and 100 kVp. Retrospec tive ECG gatingwas performed, at a heart rate of 60 bpm. Images were reformatted at 0.5 mmintervals and sent to the [employer] workstation for interpretation of bothsystolic and diastolic phases.IV contrast: 90 mL of Visipaque 320 contrast w as delivered intravenously at 5.0mL/sec followed by a 50 mL normal saline bolus chaser.DLP: 2078.1 mGy-cmSTUDY QUALITY: DiagnosticFINDINGS:Aortic root landmarks (dimensions determined in systolic phases)Aortic valve: Trifleaflet: Symmetricc alcified; bulky leaflet: No;right/left/noncoronaryAortic annulus: 28.3 x 23.1 mm ; average 24.2 mm; area 4.61 sq cm; dweicrmiprnus95.5 mmSino-tubular junction: 3 2.6 x 28.8 mm; average 30.9 mmAo annulus to coronary height: left main: 16.5 mm; right: 9.92 mmAo annulus to STJ length: 25.6 mmSinuses of Valsalva: width 30.7 x 30 x 28.8 mmAscending aorta width at 40 mm from annulus: 37.3 x 32.8 mmCoplanar TAVR angle: ERNIE 2 CAU 11Coronary Arteries:This patient has a right dominant sy stem, with normal origins of the coronaryarteries.Basal septal hypertrophy: Derick evere hypertrophy (1.5 cm wall thickness): 1.5 cmIntracardiac masses: noneOther cardiac findings:There is severe biatrial enlargement with right atrial predomin ance.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 Scattered azalea narycalcifications are noted.Pacemaker: Left subclavian approach AICD terminates in the right ventricle.Artificial valve: Yes; Location: Mitral valveIntracardiac closure device: None.IMPRESSION:1. Trileaflet symmetrically calcified aortic valve and with aortic annularmeasurements as described above.2. Severe biatrial enlargement and basilar septal hypertrophy.3. Postsurgical changes following c oronary artery bypass graft.4. Scattered coronary calcifications are noted. Ple ase refer to coronaryangiogram report for dedicated findings.5. Please refer to same date CT angiogram for evaluation of noncardiacfindings.This report was made in conjunction with Dr. Aiden Bridges.--Read by: Elva Whitney MDDictated Date /time: 04/10/19 14:13Electronically Signed by: Elva Whitney MD 04/14/1912:00FINAL REPORTUnAcadia HealthcareATOLOGY 2019-03-04 14:46:00* Test Item Value Reference Range Interpretation Comments PT (test code = PT) 16.2 s 12.0-14.7 [id number] 14:46:00* Test Item Value Reference Range Interpretation Comments INR (test code = INR) 1.33 1 0.85-1.17 [facility] [id number] 14:46:00* Test Item Value Reference Range Interpretation Comments PTT (test code = PTT) 54.3 s 22.9-35.8 [facility]2019-09-23 16:51:00* Test Item Value Reference Range Interpretation Comments Sodium Level (test code = 2951-2) 135 136-145 [facility] [id number] 16:51:00* Test Item Value Reference Range Interpretation Comments Potassium Level (test code = 2823-3) 4.6 3.5-5.1 [facility] CenterChloride [id number] 16:51:00* Test Item Value Reference Range Interpretation Comments Chloride Level (test code = 2075-0) 101 98-107 [facility] CenterCar[facility] Dioxide Smzjh5363-14-51 16:51:00* Test Item Value Reference Range Interpretation Comments Carbon Dioxide Level (test code = 2028-9) 25 22-29 [facility] CenterAnion [id number] 16:51:00* Test Item Value Reference Range Interpretation Comments Anion Gap (test code = 47607-4) 13.6 8-16 [facility] CenterBlood Urea [id number] 16:51:00* Test Item Value Reference Range Interpretation Comments Blood Urea Nitrogen (test code = 3094-0) 29 7-26 H [facility] CenterCreatinine2019-09-23 16:51:00* Test Item Value Reference Range Interpretation Comments Creatinine (test code = 2160-0) 1.02 0.57-1.11 [facility] CenterB[facility]/Creatinine Xwckn5473-05-56 16:51:00* Test Item Value Reference Range Interpretation Comments BUN/Creatinine Ratio (test code = 3097-3) 28 6-25 H [facility] CenterEstimat Glomerular Filtration Rate 2019-02-16 16:51:00* Test Item Value Reference Range Interpretation Comments Estimat Glomerular Filtration Rate (test code = 902485482) 53 >60 L Ranges were taken from the National Kidney Disease Education Program and the [facility] literature.Reference ranges:60 or greater: Ioinps43-38 ( for 3 consecutive months): Chronic kidney disease 15 or less: Kidney failureT[facility] Medical CenterGlucose Rhhym9890-60-83 16:51:00* Test Item Value Reference Range Interpretation Comments Glucose Level (test code = AVJ2642) 100 74-118 [facility] CenterCalcium Cvymy5415-03-23 16:51:00* Test Item Value Reference Range Interpretation Comments Calcium Level (test code = 35534-2) 9.7 8.4-10.2 [facility] CenterTotal Lbvyxueuf3742-48-77 16:51:00* Test Item Value Reference Range Interpretation Comments Total Bilirubin (test code = 1975-2) 0.9 0.2-1.2 [facility] CenterAspartate Amino Transf (AST/SGOT) 2019-02-16 16:51:00* Test Item Value Reference Range Interpretation Comments Aspartate Amino Transf (AST/SGOT) (test code = Aspartate Amino Transf (AST/SGOT)) 23 5-34 [facility] CenterAlanine Aminotransferase (ALT/SGPT) 2019-02-16 16:51:00* Test Item Value Reference Range Interpretation Comments Alanine Aminotransferase (ALT/SGPT) (test code = 1742-6) 14 0-55 [facility] CenterTotal Duufvtt6708-46-96 16:51:00* Test Item Value Reference Range Interpretation Comments Total Protein (test code = 2885-2) 7.9 6.5-8.1 [facility] CenterAlbumin2019-09-23 16:51:00* Test Item Value Reference Range Interpretation Comments Albumin (test code = 1751-7) 3.9 3.5-5.0 [facility] CenterGlobulin2019-09-23 16:51:00* Test Item Value Reference Range Interpretation Comments Globulin (test code = 25566-2) 4.0 2.3-3.5 H [facility] CenterAlbumin/Globulin Bdhjc5527-25-91 16:51:00 * Test Item Value Reference Range Interpretation Comments Albumin/Globulin Ratio (test code = 1759-0) 1.0 0.8-2.0 [facility] CenterAlkaline Bcisoagtvvc1847-23-37 16:51:00* Test Item Value Reference Range Interpretation Comments Alkaline Phosphatase (test code = 6768-6) 100 40-150 [facility] CenterProthrombin Htsz3377-87-96 16:42:00* Test Item Value Reference Range Interpretation Comments Prothrombin Time (test code = 5902-2) 23.7 11.9-14.5 H [facility] CenterProthromb Time International Ratio 2019-02-16 16:42:00* Test Item Value Reference Range Interpretation Comments Prothromb Time International Ratio (test code = 6301-6) 2.04 Oral Anticoagulant Therapy INR Values:1. Low Intensity Therapy 1.5 - 2.02 . Moderate Intensity Therapy 2.0 - 3.03. High Intensity Therapy(1) 2.5 - 3. 54. High Intensity Therapy(2) 3.0 - 4.05. Panic Value INR > 5.0 [facility] CenterActivated Partial Thromboplast Time 2019-02-16 16:42:00* Test Item Value Reference Range Interpretation Comments Activated Partial Thromboplast Time (test code = 50775-3) 48.6 23.8-35.5 H [facility] CenterWhite Blood Kofdj1906-35-11 16:36:00* Test Item Value Reference Range Interpretation Comments White Blood Count (test code = 6690-2) 5.47 4.8-10.8 [facility] CenterRed Blood Fisgo5431-90-77 16:36:00* Test Item Value Reference Range Interpretation Comments Red Blood Count (test code = 789-8) 3.88 3.6-5.1 [facility] CenterHemoglobin2019-09-23 16:36:00* Test Item Value Reference Range Interpretation Comments Hemoglobin (test code = 68025-0) 8.2 12.0-16.0 L [facility] CenterHematocrit2019-09-23 16:36:00* Test Item Value Reference Range Interpretation Comments Hematocrit (test code = 4544-3) 27.6 34.2-44.1 L [facility] CenterMean Corpuscular Jsyvgp4357-44-86 16:36:00* Test Item Value Reference Range Interpretation Comments Mean Corpuscular Volume (test code = 787-2) 71.1 81-99 L [facility] CenterMean Corpuscular Ymkohpikyz9504-97-64 16:36:00* Test Item Value Reference Range Interpretation Comments Mean Corpuscular Hemoglobin (test code = 785-6) 21.1 28-32 L [facility] CenterMean Corpuscular Hemoglobin Concent 2019-02-16 16:36:00* Test Item Value Reference Range Interpretation Comments Mean Corpuscular Hemoglobin Concent (test code = 786-4) 29.7 31-35 L [facility] CenterRed Cell Distribution Qzwgu1315-69-39 16:36:00* Test Item Value Reference Range Interpretation Comments Red Cell Distribution Width (test code = 19028-3) 18.6 11.7 -14.4 H [facility] CenterPlatelet Nvbme1974-63-28 16:36:00* Test Item Value Reference Range Interpretation Comments Platelet Count (test code = 777-3) 170 140-360 [facility] CenterNeutrophils (%) (Auto)2019-02-16 16:36:00 * Test Item Value Reference Range Interpretation Comments Neutrophils (%) (Auto) (test code = 85616-9) 66.3 38.7-80.0 [facility] CenterLymphocytes (%) (Auto)2019-02-16 16:36:00 * Test Item Value Reference Range Interpretation Comments Lymphocytes (%) (Auto) (test code = 736-9) 21.9 18.0-39.1 [facility] CenterMonocytes (%) (Auto)2019-02-16 16:36:00* Test Item Value Reference Range Interpretation Comments Monocytes (%) (Auto) (test code = 5905-5) 6.9 4.4-11.3 [facility] CenterEosinophils (%) (Auto)2019-02-16 16:36:00 * Test Item Value Reference Range Interpretation Comments Eosinophils (%) (Auto) (test code = 713-8) 4.0 0.0-6.0 [facility] CenterBasophils (%) (Auto)2019-02-16 16:36:00* Test Item Value Reference Range Interpretation Comments Basophils (%) (Auto) (test code = 706-2) 0.5 0.0-1.0 [facility] CenterIM GRANULOCYTES %2019-02-16 16:36:00* Test Item Value Reference Range Interpretation Comments IM GRANULOCYTES % (test code = IM GRANULOCYTES %) 0.4 0.0- 1.0 [facility] CenterNeutrophils # (Auto)2019-02-16 16:36:00* Test Item Value Reference Range Interpretation Comments Neutrophils # (Auto) (test code = 751-8) 3.6 2.1-6.9 [facility] CenterLymphocytes # (Auto)2019-02-16 16:36:00* Test Item Value Reference Range Interpretation Comments Lymphocytes # (Auto) (test code = 85554-3) 1.2 1.0-3.2 [facility] CenterMonocytes # (Auto)2019-02-16 16:36:00* Test Item Value Reference Range Interpretation Comments Monocytes # (Auto) (test code = 742-7) 0.4 0.2-0.8 [facility] CenterEosinophils # (Auto)2019-02-16 16:36:00* Test Item Value Reference Range Interpretation Comments Eosinophils # (Auto) (test code = 711-2) 0.2 0.0-0.4 [facility] CenterBasophils # (Auto)2019-02-16 16:36:00* Test Item Value Reference Range Interpretation Comments Basophils # (Auto) (test code = 704-7) 0.0 0.0-0.1 [facility] CenterAbsolute Immature Granulocyte (auto 2019-02-16 16:36:00* Test Item Value Reference Range Interpretation Comments Absolute Immature Granulocyte (auto (teresa t code = Absolute Immature Granulocyte (auto) 0.02 0-0.1 [facility] CenterCARDIAC SCLOQIW5784-08-69 20:17:00<0.02 [facility] NlnnyqlWTALNCGBQNZY2251-70-67 20:17:0011.6[facility]annELECTROLYTES 2019-01-30 20:17:00* Test Item Value Reference Range Interpretation Comments B/C Ratio (test code = B/C Ratio) 27 1 6-25 [facility] QufvclvZQILCKVYXYAL1628-86-47 20:17:004.0[facility]annELECTROLYTES 2019-01-30 20:17:00* Test Item Value Reference Range Interpretation Comments A/G Ratio (test code = A/G Ratio) 1.0 1 0.7-1.6 [facility] QfuhpspAIETTPTUMDUG1412-88-40 20:17:0099[facility]annELECTROLYTES 2019-01-30 20:17:0030[facility] BortlzpFDPSHUWQWMBP9845-61-64 20:17:001.10[facility] OyouuknXWDALTMIBXKU7357-54-92 20:17:70606Axkcydpt EnouurzKCNJIWAVNTUS4887-22-93 20:17:004.6[facility] LblrhfzWGMMAXETSNYH3543-99-21 20:17:94688Dwqqmdrx [place] FDHPJGKLOYQR7494-75-52 20:17:0027[facility] KffmbhzCZJJVDAIEXML8710-80-37 20:17:00 9.2[facility] EnoutarOHVZJCYKAAGP4768-66-96 20:17:007.9[facility] Ag TVYROQBDZVGU1227-99-20 20:17:003.9[facility] RxloldgBHNJPTTFBUDR3221-26-85 20:17:0018[facility] FevmmofZURJFFHQFJOX8999-87-25 20:17:0020[facility] UXVLMOXWZJGA7457-44-85 20:17:0091[facility] BudidmlEHHXPFICBUFR3263-61-70 20:17:00 0.7[facility] JzswdpzXWPGZIVUMFBT4509-90-71 20:17:0050[facility]annHEMATOLOGY 2019-01-30 20:17:006.1[facility] ZujpiycGYQNHBTLEZ4806-58-19 20:17:003.92[facility] UiaoeveXAFUMOMBYO4237-55-83 20:17:008.5[facility] HyhtoavVVKJEWVPCX8005-66-18 20:17:0026.9[facility] RhhvouaPUWTMYTEDP0216-39-65 20:17:0068.7[facility] Ag DMAJHKJFUI4767-71-19 20:17:00* Test Item Value Reference Range Interpretation Comments MCH (test code = MCH) 21.6 pg 27.0-31.0 [facility] LrujphwALYQKFATIJ1309-75-04 20:17:0031.5[facility] HermannHEMATOLOGY 2019-01-30 20:17:0019.6[facility] PniqfoiRNYNWWNFLA8446-95-86 20:17:93232Wqstjtxk LnljzyjUVQIFMAOYA6447-45-97 20:17:009.2[facility] MpiamcyCIYOVQNKCO9895-74-29 20:17:00* Test Item Value Reference Range Interpretation Comments PT (test code = PT) 22.0 s 12.0-14.7 [facility] LpjdjnbFEKQCIWFAB1862-83-04 20:17:00* Test Item Value Reference Range Interpretation Comments INR (test code = INR) 1.97 1 0.85-1.17 [facility] EmdqicuWHWDSOQWTL1519-98-12 20:17:00* Test Item Value Reference Range Interpretation Comments PTT (test code = PTT) 49.6 s 22.9-35.8 [facility] KgtqeiwOMXJPCZDZB4624-73-29 20:17:00Normal (01/30/19 3:17 PM)[facility] MtdycuwYCMJFGZOHK9952-33-64 20:17:0077.0[facility] UjrambjLBJILSAHWK4409-11-15 20:17:0016.0[facility] ZztkawwQMQBMOPOZV0057-08-95 20:17:005.6[facility] Ag OGQXLJKNDO7184-88-90 20:17:000.9[facility] NrpxiymZDRBGSEFJB6175-28-03 20:17:000.5 [facility] DzyvxkaCJLYZCYVJX7153-09-16 20:17:004.7[facility]annHEMATOLOGY 2019-01-30 20:17:001.0[facility] YtnlzvqRMGQXEPZRM5821-15-90 20:17:000.3[facility] KyxhakiYGDSJHZMYD0283-79-60 20:17:000.1[facility] HycfwpyUMKMXLBCIU0092-78-71 20:17:001+ *ABN*(01/30/19 3:17 PM)[facility] CsivfbgVSHPBCCONS4015-69-96 20:17:003+ *NA*(01/30/19 3:17 PM)[facility] YeklvcwTJKLWSHHNV9149-15-61 20:17:001+ (01/30/19 3:17 PM)[facility]UR[facility] AND JWOWY5451-90-75 20:17:00Yellow *NA*(01/30/19 3:17 PM) [facility] KETOQ0744-65-75 20:17:00Clear (01/30/19 3:17 PM)[facility] WAMBD2363-47-24 20:17:00* Test Item Value Reference Range Interpretation Comments UA Spec Grav (test code = UA Spec Grav) 1.018 1 [facility] MBSHZ6630-38-11 20:17:00* Test Item Value Reference Range Interpretation Comments UA pH (test code = UA pH) 6.0 1 5.0-8.0 [facility] PECXV9569-23-00 20:17:00Negative *NA*(01/30/19 3:17 PM) [facility] QROSD1428-59-28 20:17:00Negative (01/30/19 3:17 PM) [facility] LWAQB1836-56-63 20:17:00Negative (01/30/19 3:17 PM) [facility] SSNAX0555-44-14 20:17:00Negative (01/30/19 3:17 PM) [facility] XGSHJ4532-15-96 20:17:00<1[facility] ZJFLM4850-97-57 20:17:001[facility] APHYV7267-31-89 20:17:001 [facility] VmgwsxlCANSCHUJLB0435-02-70 11:40:00* Test Item Value Reference Range Interpretation Comments PT (test code = PT) 23.6 s 12.0-14.7 [facility] RczwpjeRNWTIYTIZA3483-40-00 11:40:00* Test Item Value Reference Range Interpretation Comments INR (test code = INR) 2.08 1 0.85-1.17 [facility] HermannCHEM DBKLG9293-62-28 08:29:002.1[facility] HermannELECTROLYTES 2018-02-26 08:29:0016.9[facility] XapccfnCBPAEMJSGIXX0908-31-94 08:29:00* Test Item Value Reference Range Interpretation Comments B/C Ratio (test code = B/C Ratio) 30 1 6-25 [facility] ImatnmyUPSDEIASBCQY4044-80-42 08:29:004.2[facility]annELECTROLYTES 2018-02-26 08:29:00* Test Item Value Reference Range Interpretation Comments A/G Ratio (test code = A/G Ratio) 0.9 1 0.7-1.6 [facility] EkmxsrnXKDELQKKHOLW0961-64-42 08:29:0062[facility] HermannELECTROLYTES 2018-02-26 08:29:0024[facility] MnnqotxSQBBCEOQXVRN0715-44-73 08:29:51538Mlujmgcb RvkbtgiEHLXBRXCDLMK2983-54-79 08:29:000.5[facility] EzhegmyBLYZEGICVMLV6417-33-39 08:29:0027[facility] XpztmeeZRAQFIQEHPGU1313-61-89 08:29:008.9[facility] [place] PGWSMKPKUMYD9517-86-42 08:29:007.8[facility] TogbszqLXDKGIPALURA4792-94-38 08:29:003.6[facility] KydojjrRDMDLBNVJQPY5520-44-49 08:29:0023[facility] [place] CFGKLQNIHLDU2580-37-03 08:29:0028[facility] KjipreuUQQIIRLFTJFO5290-97-34 08:29:00 0.93[facility] ImowvftOVFRLZDEEXEV0014-55-37 08:29:46550Fokzxbxz Ag LGYWQDSVWHMB1876-90-21 08:29:003.9[facility] VfkwltpMQSIJCWVNDLG3225-99-51 08:29:66396Htjegjrr GuktobtIHSNMQVDOBFH7221-03-60 08:29:76523Ynzvdgur [place] VKWUFTXUME5836-73-69 08:29:00* Test Item Value Reference Range Interpretation Comments MCH (test code = MCH) 25.2 pg 27.0-31.0 [facility] RtyiusqBBGESYSKIS7870-19-05 08:29:0032.9[facility] HermannHEMATOLOGY 2018-02-26 08:29:0016.6[facility] GgzrbrzBMTZWQMKBJ8648-33-85 08:29:92946Edftucgp XuxjbijPPFDWESLFF6333-59-17 08:29:0076.7[facility] UtufgupHNOTKMTJKM5774-64-82 08:29:009.2[facility] SpaihomVCBJZFRWOB8655-89-58 08:29:005.7[facility] [place] KOCWVBJWDD8196-16-94 08:29:0010.3[facility] TbclcqkWUHKQVEPAI3796-39-09 08:29:00 4.09[facility] TqrazrbTWZSSJRZAJ4992-86-03 08:29:0031.4[facility]annHEMATOLOGY 2018-02-26 08:29:000.2[facility] XdjvrlbEBYOLBVHJM4499-56-01 08:29:001+ *ABN*(02/26/18 3:29 AM)[facility] OibzdoyAJTGYHQDBM7382-55-95 08:29:0060.1[facility] DxzxgjmPBGQHUXBJW0145-07-97 08:29:0029.8[facility] XwjgvqsSNWJEFANKV1141-57-31 08:29:000.4[facility] UjaabduBFRYKIDYZC9009-79-63 08:29:003.3[facility] Ag PIKGMEYXMG5897-15-51 08:29:000.6[facility] YbvhmfhKWFPNCNIQL5406-16-53 08:29:003.4 [facility] PdpcjfbTTVRPZVQPK4588-82-67 08:29:001.7[facility] HermannHEMATOLOGY 2018-02-26 08:29:006.2[facility] ZtizbivOLDAXZ7259-84-83 08:29:00* Test Item Value Reference Range Interpretation Comments VLDL (test code = VLDL) 29 1 [facility] SofunrvIEDNRN7364-60-58 08:29:0035[facility] NbsxwzcQEPKOP2584-99-29 08:29:0097[facility] ZyxssruRXGJMS8676-03-94 08:29:0033[facility] HermannLIPIDS 2018-02-26 08:29:59779Padoiwcr CwcmdppLABAEA7223-38-52 08:29:00* Test Item Value Reference Range Interpretation Comments CHD Risk (test code = CHD Risk) 2.94 1 3.90-5.80 [facility]annSPECIAL JJVPBXCRX5404-80-34 08:29:008.6[facility] [place] PKIXFCKZWO7668-86-12 08:29:000.9[facility]annURINE AND GSHCT8440-64-02 00:25:001[facility] AND BRTLD3025-17-09 00:25:001[facility] [place] URINE AND YUVYN7073-89-90 00:25:001[facility] AND VNYJV2218-16-21 00:25:002.0[facility] AND BOWJF1276-50-41 00:25:00Negative (02/25/18 7:25 PM)[facility] BCFZX6492-54-28 00:25:00Negative *NA*(02/25/18 7:25 PM)[facility] NAPEI5945-79-39 00:25:00Negative (02/25/18 7:25 PM)[facility] OOAWR8137-28-79 00:25:00Negative (02/25/18 7:25 PM) [facility] ATFKP0421-03-82 00:25:00* Test Item Value Reference Range Interpretation Comments UA pH (test code = UA pH) 5.0 1 5.0-8.0 [facility] MMAXX0133-96-31 00:25:00Yellow *NA*(02/25/18 7:25 PM) [facility] AXTDD6859-74-59 00:25:00Clear (02/25/18 7:25 PM) [facility] HVMVA7213-75-55 00:25:00* Test Item Value Reference Range Interpretation Comments UA Spec Grav (test code = UA Spec Grav) 1.019 1 [facility]annCARDIAC WXPOARU5876-06-76 22:30:0092[facility] HermannCARDIAC WUNCJBI7952-89-72 18:36:000.03[facility]annCARDIAC BUWJVRW7744-37-71 18:36:00 58[facility] HermannCHEM HLADN7020-86-99 18:36:0053[facility] HermannCHEM PANEL 2018-02-25 18:36:000.7[facility] HermannCHEM NJJJU6834-34-64 18:36:0025[facility] HermannCHEM LBTYX7581-70-65 18:36:0031[facility] HermannCHEM YVQVK4340-32-85 18:36:65269Yubizkpn HermannCHEM BQYAM8471-03-83 18:36:008.1[facility] HermannCHEM QIGIA9733-21-90 18:36:0023[facility] HermannCHEM RVQUF1914-77-55 18:36:003.8 [facility] HermannCHEM UGAAE5302-02-00 18:36:008.8[facility] HermannCHEM PANEL 2018-02-25 18:36:001.05[facility] HermannCHEM GMDSD6951-36-32 18:36:0024[facility] HermannCHEM RTLZV0208-52-71 18:36:36008Ispdldeb HermannCHEM KBGLZ5709-96-63 18:36:004.5[facility] HermannCHEM DAVIM7959-18-13 18:36:80679Snzoxpzo HermannCHEM LQAYY7189-31-60 18:36:87562Lzlbzfxv HermannCHEM ZBITY1568-39-89 18:36:0018.5 [facility]annCHEM UVPAJ4157-74-49 18:36:00* Test Item Value Reference Range Interpretation Comments B/C Ratio (test code = B/C Ratio) 23 1 6-25 [facility] HermannCHEM IGTAK6810-95-94 18:36:00* Test Item Value Reference Range Interpretation Comments A/G Ratio (test code = A/G Ratio) 0.9 1 0.7-1.6 [facility]annCHEM KYDXN0661-36-39 18:36:004.3[facility]annHEMATOLOGY 2018-02-25 18:36:000.6[facility] AnvlcxyXQYNSTIQRG3796-74-92 18:36:004.5[facility] CjmimftXSNVMVBJCO5471-20-95 18:36:005.5[facility] LfgepxaDRAQHMGIGO3214-85-53 18:36:0016.2[facility] PluuharMUSOKBDCFI0935-20-55 18:36:001.1[facility] [place] GYYLSHHKRO9252-50-69 18:36:000.1[facility] VturtzbYJOQVMUNRZ7821-80-51 18:36:000.3 [facility] ZfcteieIJMOFLEBZV6300-15-86 18:36:000.9[facility] HermannHEMATOLOGY 2018-02-25 18:36:001+ *ABN*(02/25/18 1:36 PM)[facility] YnrlwcsIFPHKLEMJM4593-41-55 18:36:0076.6[facility] CzubrnyQZGPSOMPKC1035-09-92 18:36:00* Test Item Value Reference Range Interpretation Comments PTT (test code = PTT) 44.1 s 22.9-35.8 [facility] XlazxvcFHDHDAPTXE6502-58-40 18:36:008.9[facility] HermannHEMATOLOGY 2018-02-25 18:36:005.8[facility] FtnelvgVQWSRMCPUI1775-33-59 18:36:004.25[facility] QnvjjwcEWIHHJDCNZ7259-35-67 18:36:0032.3[facility] BgjxkvuDJAXPWRGAZ1414-62-80 18:36:0017.0[facility] EvjojyuKVQXYGJYIH2421-30-14 18:36:90935Iofrknac [place] EEEJAUPODQ9575-34-41 18:36:0032.5[facility] BalbobcUKGXSSXUFA3571-45-95 18:36:00 10.5[facility] CqnehsjANIYREHLOY2995-22-28 18:36:0076.6[facility] HermannHEMATOLOGY 2018-02-25 18:36:00* Test Item Value Reference Range Interpretation Comments MCH (test code = MCH) 24.7 pg 27.0-31.0 [facility] SmadaezHPMUGDMMIE8118-27-35 18:36:00* Test Item Value Reference Range Interpretation Comments INR (test code = INR) 2.05 1 0.85-1.17 [facility] WjkigkgYTUTOFNIAF8720-57-21 18:36:00* Test Item Value Reference Range Interpretation Comments PT (test code = PT) 23.3 s 12.0-14.7 [facility] HermannCHEM JKNLA2855-28-40 08:40:0051[facility] HermannCHEM PANEL 2014-12-01 08:40:0031[facility] HermannCHEM GBJIM5261-21-07 08:40:001.1[facility] HermannCHEM FZWLW4239-75-61 08:40:0025[facility] HermannCHEM AUWOW4790-99-01 08:40:008.6[facility] HermannCHEM PJNBD9437-67-33 08:40:43815Gyrljtjb HermannCHEM RHHQD1828-88-02 08:40:003.8[facility] HermannCHEM BZUJP6013-43-35 08:40:0099 [facility]annCHEM QQQFM8035-82-16 08:40:96005Jglivvwq HermannCHEM PANEL 2014-12-01 08:40:0013.8[facility] FmtgwwfIYBZXMNAAO6066-14-74 08:40:000.5[facility] IhuoludQKKUXXBPUR4556-15-50 08:40:000.2[facility] HgpkykvFQOLHUBPMC3160-26-94 08:40:0025.5[facility] UwcftkgVCYTIRPVQX4636-67-65 08:40:008.0[facility] [place] EKIKHDSUFW5298-52-47 08:40:0063.1[facility] TskcvoiHPRHUQEEBX2667-14-83 08:40:00 3.1[facility] SwuwzcjKLIXQJWZBK3255-16-36 08:40:001+ *ABN*(12/01/14 3:40 AM)[facility] IxypnckAQUEMXSAXO6566-62-07 08:40:004.0[facility] NtvggrpBUBNQRDBAQ2496-51-31 08:40:000.3[facility] JxwcpfrCCUSBQPNSH0975-18-54 08:40:001.6[facility] [place] IFQTPLLJVS4576-73-51 08:40:00* Test Item Value Reference Range Interpretation Comments PT (test code = PT) 29.4 s 12.0-14.7 [facility] EqxftrdYXGEYRHPSW4134-04-79 08:40:002.68[facility] HermannHEMATOLOGY 2014-12-01 08:40:73258Gackuqzc MwazyjuTQWGHWOJEX7291-79-68 08:40:008.8[facility] RuenffjSLVCLLMIFT5055-03-80 08:40:0028.5[facility] WikmlqkMBSHNCIWVF9101-01-85 08:40:0033.3[facility] ZrdbsgvAZCDSYJWFB6029-34-15 08:40:0017.9[facility] [place] LAWMEZHAGC5664-55-35 08:40:0075.7[facility] YwrcjhkFRZHOHJICU3382-51-58 08:40:00* Test Item Value Reference Range Interpretation Comments MCH (test code = MCH) 25.2 pg 27.0-31.0 [facility] ZxlgossKAOVBEOOXN9953-47-27 08:40:006.4[facility] HermannHEMATOLOGY 2014-12-01 08:40:003.76[facility] PyrspmcBDHBNLMQFE0827-51-20 08:40:009.5[facility] AuiaprfDENCKYOCLXOE3783-32-17 09:14:39268Rmcnektn ProodtiXTPBFDCAQWHD1494-36-43 09:14:003.8[facility] BzazsbkFFHIPANPFFFW8921-10-48 09:14:06193Dtihferh [place] FBRBOYUDLEIO3154-32-19 09:14:0051[facility] MajckzxDLTQBFYHDZYG6404-41-40 09:14:00 0.6[facility] XdamuqeDRCFHTETIMAU4518-29-98 09:14:87214Cffaomby [place] XXTZLCWSNJUV6283-76-30 09:14:0028[facility] HzipaswJFSEQINIRJVL8570-85-12 09:14:00 3.1[facility] XvruygqGROQYFCBCMRN3329-84-45 09:14:0031[facility] HermannELECTROLYTES 2014-11-30 09:14:0038[facility] NvfwwgoWEEFIQJBMDHV7838-32-26 09:14:008.6[facility] YztyyvsKJDMAKMSPIFN7031-06-23 09:14:007.4[facility] ZosdbkfQCXIESQFQATD7152-75-71 09:14:0074[facility] DbhrlzlDBTYWNJGWUHE6765-72-71 09:14:001.1[facility] [place] CMTKXTTLPJYE8640-36-67 09:14:0027[facility] EensyqiSOKXXJEEGMLR8793-25-72 09:14:00 0.7[facility] FkgbueaPAZMTAZBWNQN2364-91-87 09:14:004.3[facility] KNPZEJMQEJJO0691-32-08 09:14:0013.8[facility] WnnadwsYMRTFIEBUQHA4624-79-61 09:14:0025[facility] AgrkcwgZAGLTBQCSK0709-39-97 09:14:003.1[facility] KJVGBUJDGL0121-69-78 09:14:0011.3[facility] BcdpqqyYLMPCOKHFC0369-44-37 09:14:00 23.3[facility] OovrxinWXITEIUWES0487-08-14 09:14:0061.9[facility]annHEMATOLOGY 2014-11-30 09:14:001+ *ABN*(11/30/14 4:14 AM)[facility] GukrghdEQPVPTRSMI6527-81-31 09:14:000.2[facility] VxqqcagLFCQZEZLIV3800-85-16 09:14:000.4[facility] JZDNQTVPIM9113-45-92 09:14:003.5[facility] WiyguofKHRFIYLTEY7256-94-06 09:14:001.3 [facility] DuzxscjTFOECNTMTY6565-87-16 09:14:000.6[facility]annHEMATOLOGY 2014-11-30 09:14:0017.9[facility] OxqgmfjQJHKJUDANU7065-50-75 09:14:0033.2[facility] VtukbpyFVNBZEUOFC0073-33-64 09:14:0076.2[facility] NxuifxyQOCYKVEIJU7819-93-73 09:14:00* Test Item Value Reference Range Interpretation Comments MCH (test code = MCH) 25.3 pg 27.0-31.0 [facility] OzjbgkbAVUOXKDXYV3924-89-09 09:14:0031.3[facility]annHEMATOLOGY 2014-11-30 09:14:009.0[facility] TzovicgIYKNFWXJAG5139-48-04 09:14:86593Cblcaddh RouwfuhDZQEPFNHFC2711-13-40 09:14:004.11[facility] NwqzvjaIKQCNKDLVI7601-37-13 09:14:0010.4[facility] RpwdidgZMOJLEVVDJ4171-32-15 09:14:005.7[facility] VVBQEGUCCH1026-54-09 09:14:002.52[facility] EyazwbpVDQMMQCWJX5272-09-90 09:14:00* Test Item Value Reference Range Interpretation Comments PT (test code = PT) 28.0 s 12.0-14.7 [facility]annSPECIAL VWCJYACFK5553-20-34 09:14:007.6[facility]annCHEM RSCCI2413-29-11 15:50:000.25[facility] SasmmejRAVPUGUCAS9918-03-34 15:50:002.48 [facility] OsshqzhOCXKEUCSPQ2266-12-18 15:50:00* Test Item Value Reference Range Interpretation Comments PT (test code = PT) 27.6 s 12.0-14.7 [facility]annCARDIAC PWZSWQU4740-91-37 13:27:000.03[facility]annCARDIAC LVWCLWE7268-50-87 13:27:17030Wocqyyrm HermannCARDIAC DYLTQER1751-15-09 13:27:00 0.3[facility]annCARDIAC CFCCLOR4454-46-09 13:27:001.0[facility]annCARDIAC CFKFLXW7241-14-04 06:25:000.04[facility]annCARDIAC YBRTBSO6780-50-48 06:25:00 278[facility]annCARDIAC QGETLGR8993-98-31 06:25:000.4[facility]annCARDIAC PZFNRYQ2762-89-52 06:25:001.2[facility] CdzdlpzOLSHGR1523-85-53 06:25:0021[facility] DdglotlVKQSXR7724-67-24 06:25:0041[facility] YesmpgpANUWNE8394-49-61 06:25:0027 [facility] ZmhqaqcMCUVVP2343-65-24 06:25:002.17[facility] HpygbpcEJZXHU6264-63-28 06:25:44465Sfttmqhl OmidicqLVCFKU4624-79-66 06:25:0089[facility]annURINE AND UAPGC3760-85-69 01:35:00Negative *NA*(11/28/14 8:35 PM)[facility] KGBHC8331-88-91 01:35:00Negative (11/28/14 8:35 PM)[facility] STOOL 2014-11-29 01:35:00Trace *ABN*(11/28/14 8:35 PM)[facility] STOOL 2014-11-29 01:35:00Negative (11/28/14 8:35 PM)[facility] STOOL 2014-11-29 01:35:00<1[facility] AND ZZAAV1239-63-67 01:35:001.009 [facility] DHFBT7429-83-98 01:35:005.0[facility] AND RPQOV3955-09-90 01:35:00Clear (11/28/14 8:35 PM)[facility]annCARDIAC ENZYMES 2014-11-29 00:32:000.3[facility]annCARDIAC LLWCGWE2246-66-82 00:32:42160 [facility]AC KYHBPLB3814-80-42 00:32:000.05[facility]annCARDIAC VPZRKCE7992-24-18 00:32:000.6[facility]annCARDIAC UCGCRMP6282-32-12 00:32:00 207[facility]annCHEM AUUOH4857-34-44 00:32:002.9[facility]annCHEM PANEL 2014-11-29 00:32:002.0[facility] CizbkxvXTTZEJPXQF5545-25-24 00:32:00* Test Item Value Reference Range Interpretation Comments PTT (test code = PTT) 69.0 s 22.9-35.8 [facility]annCHEM GTNCM0289-85-14 22:56:004.0[facility]annCHEM PANEL 2014-11-28 22:56:007.6[facility]annCHEM PENYS9453-83-16 22:56:0025[facility]annCHEM FPIHS5303-40-31 22:56:0030[facility]annCHEM TKVKA9706-91-09 22:56:0072[facility]annCHEM HEYSA6038-67-21 22:56:000.7[facility]annCHEM RXDWF4206-42-27 22:56:0025[facility]annCHEM BHMPU0986-40-92 22:56:0042 [facility]annCHEM USYIW2289-02-07 22:56:008.8[facility]annCHEM PANEL 2014-11-28 22:56:003.6[facility]annCHEM OJXRQ5887-54-69 22:56:004.0[facility]annCHEM BKEWL7565-23-98 22:56:001.3[facility]annCHEM UKEVV3405-44-68 22:56:0099[facility]annCHEM JDCYA4546-01-78 22:56:25211Stfcfbuo HermannCHEM ELPQC6572-38-64 22:56:0024[facility]annCHEM PUJOP0719-82-70 22:56:64944 [facility]CHE[facility] YBJCE9291-47-94 22:56:004.0[facility]annCHEM PANEL 2014-11-28 22:56:0019[facility]annCHEM MOPRG4540-93-65 22:56:000.9[facility]annCHEM MFMOM0073-44-28 22:56:0015.0[facility] CaxxbqbPGVNPORJDA5361-43-36 22:56:0033.5[facility] HkfnlboEZJVETFFYJ8038-15-57 22:56:0018.1[facility] ZRKPFCZNHM4600-39-40 22:56:00* Test Item Value Reference Range Interpretation Comments MCH (test code = MCH) 25.6 pg 27.0-31.0 [facility] JdtkehdRNHOAOBUJR0555-51-38 22:56:0029.0[facility] HermannHEMATOLOGY 2014-11-28 22:56:003.80[facility] EvxantpPIXBVHYNLR7808-74-15 22:56:009.7[facility] GknoldrXQAQOAUCBJ5711-90-48 22:56:004.9[facility] DtqdgntLLQZJHTSAA0005-37-45 22:56:0076.4[facility] WixguxeXZKRDFXVMU4065-01-99 22:56:89643Zibsflgh Ag VICJILVNJP4159-89-85 22:56:009.4[facility] QortruoUIHPBWRDTX7411-79-87 22:56:001+ *ABN*(11/28/14 5:56 PM)[facility] XxswfgvLUYRUQSIFB5806-85-23 22:56:000.5[facility] BtzswcvUXQHFGBJEQ6700-88-08 22:56:003.6[facility] IqjwndcDJOTOFPHAH3096-05-00 22:56:000.4[facility] WychbtxNJUJPBZHCY6639-48-09 22:56:000.6[facility] TWMNALJTWB7738-64-57 22:56:0013.2[facility] AafxstbTTDTVEOGSP3633-95-13 22:56:00 74.8[facility] QlpehdnRWRAVQNCRL5387-38-09 22:56:000.5[facility]annHEMATOLOGY 2014-11-28 22:56:0011.1[facility] PdbkcvnTRCKJIUBJ1164-09-06 01:34:001.0[facility] PyoftiuYYBKDMMHV9766-00-95 01:34:004.2[facility] KxdcxepMGXANQOTI9066-49-35 01:34:004.1[facility] YfurguhZVJRAGHHN6782-04-90 01:34:008.3[facility] SNFAZOFYO4336-24-72 01:34:92862Njjuafht SfescayJUOAZRYTG2843-96-93 01:34:0038 [facility] TadhqmsPOXOFZGDW0099-94-34 01:34:000.5[facility] HermannCHEMISTRY 2012-10-04 01:34:0030[facility] LlyqjgjFPVZEVIOJ0515-86-66 01:34:0012.0[facility] GsjlftvPJIPDASQX8052-13-85 01:34:0030[facility] ShfkpsqKKYUKXPLL3392-88-85 01:34:009.1[facility] KazxlsxXSFNOREAU9381-41-54 01:34:000.9[facility] AEMJQGYJV3585-86-41 01:34:0027[facility] EbjboxcJCNODEAXX6906-34-79 01:34:0029 [facility] BqspersNZKHATPEL2784-07-17 01:34:50803Imecplio HermannCHEMISTRY 2012-10-04 01:34:0066[facility] OzlurkxKHCZZTOJX1287-38-80 01:34:004.0[facility] PdkqqlpSFTFZTSVU1226-78-97 01:34:44824Deoinajr TagyvnmVEGFJPQFD2568-80-29 01:34:69643Mdzuvqox LsuaylhXLWVZXCADP2891-58-06 01:34:00Clear (10/03/2012 20:34:00) WyiklebLCKLNLEKZD8352-74-95 01:34:00Yellow *NA*(10/03/2012 20:34:00) [facility] LmscgysZJKGWVAIAB0340-27-56 01:34:00* Test Item Value Reference Range Interpretation Comments UA pH (test code = UA pH) 5.5 1 5.0-8.0 N [facility] DojccdiFWFOTXDZDF8521-58-82 01:34:00Negative mg/dL (10/03/2012 20:34:00) [facility] VawnkadBSFQZKIBJA7615-63-46 01:34:00* Test Item Value Reference Range Interpretation Comments UA Spec Grav (test code = UA Spec Grav) 1.015 1 N [facility] RogmwhnNGCKAOXOYH1364-65-73 01:34:00Negative mg/dL *NA*(10/03/2012 20:34:00) [facility] VonxdvyAVJBSNYRIU5081-60-89 01:34:00Negative mg/dL (10/03/2012 20:34:00) [facility] EdbkamxOMUFHDVYIK7024-12-53 01:34:00Negative (10/03/2012 20:34:00) [facility] MujtxrjFCQBCNCNLH7462-49-59 01:34:00Negative *NA*(10/03/2012 20:34:00) [facility] MwbzmphORNMEEEFEM4111-45-53 01:34:000.2 [facility] LnihoifQBULLLRPXT3961-48-81 01:34:00Negative (10/03/2012 20:34:00) [facility] TigerevNJSOQBEQXX5903-44-15 01:34:00Negative (10/03/2012 20:34:00) [facility] BqnglrbCWLMBTUAFJ4605-32-93 01:34:00None Seen (10/03/2012 20:34:00) [facility] SvlrffpSIPRTYOANK1986-49-66 01:34:00None Seen (10/03/2012 20:34:00) [facility] JqwvqbbPOXJPIYNLO1855-26-55 01:34:000-2 /HPF (10/03/2012 20:34:00) [facility] SqlewzmRUXOGDMLYJ8579-67-41 01:34:00Few /LPF (10/03/2012 20:34:00) [facility] ZoooblnGFVWMXJIQU5001-92-23 01:34:00None Seen (10/03/2012 20:34:00) [facility]kebykHVWSIANZAV8637-67-80 01:31:008.5[facility] HermannHEMATOLOGY 2012-10-04 01:31:006.9[facility] LthpikaBZTEMMUSRV2936-22-62 01:31:0033.4[facility] VghnncnJOURCRCIWD6834-49-34 01:31:004.27[facility] TnjfrlsZDTPRNPCPH2604-44-67 01:31:0010.6[facility] QkvogdkVKQWFDJGAF4308-47-01 01:31:00* Test Item Value Reference Range Interpretation Comments MCH (test code = MCH) 24.9 pg 27.0-31.0 L [facility] OyamcdiPDJFSGUZUT3311-79-32 01:31:0031.8[facility] HermannHEMATOLOGY 2012-10-04 01:31:0078.3[facility] EjrgqicOTGKEZPDKA4995-85-16 01:31:0018.6[facility] SwtkgykGFZGCPEFIR2949-52-27 01:31:33171Xybehnfg EoxngryKRBOSOENSC0530-21-13 01:31:005.5[facility] LdzuvepACUXUGHTGR8017-88-89 01:31:0062.9[facility] RMBCCKEHMC0703-00-35 01:31:0028.9[facility] GhlgiykOPSQANXRVF1852-99-59 01:31:00 4.3[facility] LjfwmpaOJMZDYTBKQ8360-07-73 01:31:002.0[facility] HermannHEMATOLOGY 2012-10-04 01:31:002.2[facility] YyrcnxbWVKADEDWBG8544-34-58 01:31:000.5[facility] VowvjarOEJMXIXFZH8539-30-24 01:31:000.0[facility] LoiubwlODHNZWYOKV8444-11-07 01:31:000.1[facility] WyuzdpeCUQOGOZBSO8466-36-18 01:31:000.4[facility] YFWHITPZQD6325-67-24 01:16:00* Test Item Value Reference Range Interpretation Comments PT (test code = PT) 14.2 s 12.0-14.7 N [facility] OelyaiuCGHNHWGUDM8064-75-07 01:16:001.08[facility]
--- OUTSIDE RECORDS SUMMARY | 2019-12-25 20:56 | XMS REPORT | Continuity of Care Document ---
Author Author Arcadio SuddenValues KAREN Doty Organization [employer] Address Unknown Phone Unavailable Care Team Providers Care Fire Prevention Chief Name Role Phone BriefMe Information Exchange Unavailable Un available Problems Problem Status Onset Date Classification Date Reported Comments Source R05 - COUGH Active 10/05/2019 [facility] [place] ACUTE EXACERBATION OF CHF, CHEST PAIN Active 07/06/2019 [facility] SOB Active 0 07/06/2019 [facility] Z95.2 Active 04/30/2019 [facility] PREADMIT / TAVR / MAC / TTE Ac tive 04/14/2019 [facility] PREADMIT/TAVR W/ SENTINEL/ MAC/TTE Active 03/23/2019 [facility] AORTIC STENOSIS Active 03/20/2019 [facility] LT HEART CATH, FEMORAL APPROACH Active 03/04/2019 [facility] Unspecified injury of head, initial encounter 01/30/2019 02/01/2019 [facility] FALL Active 01/30/2019 [facility] Paresthesia of skin 03/05/2018 09/15/2018 [facility] WEAKNESS Active 02/25/2018 [facility] GENERAL WEAKNESS, PARESTHESIAS/NUMBNESS Active 02/25/2018 [facility] SCREENING Active 04/05/2017 [facility] Bleeding skin (finding) Active 12/07/2014 Problem 12/20/2019 Data migrated from [employer] on . [facility] ,[facility] [place] Aortic valve stenosis (disorder) Active 12/03/2014 Problem 12/20/2019 Data migrated from [employer] on . [facility] ,[facility], [facility] [place] FEVER/VOMITTING Active 11/28/2014 [facility] ACUTE CHF EXACERBATION Active 11/28/2014 [facility] Screening - health check (procedure) Resolved 08/17/2014 Problem 12/20/2019 Data migrated from [employer] on . Data migrated from [employer] on 10/26/14. [facility], [facility] [place] Left hemiparesis (disorder) Ac tive 04/28/2014 Problem 12/20/2019 Data migrated from [employer] on 10/23. [facility] ,[facility], [facility] [place] Urinary tract infectious disease (disorder) Resolved 04/28/2014 Problem 12/20/2019 Data migrated from [employer] on 12/11/14. [facility] ,[facility], [facility] [place] Insomnia (disorder) Active 03/09/2014 Problem 12/20/2019 Data migrated from [employer] on 10/23. [facility] ,[facility], [facility] [place] Major depressive disorder (disorder) Active 03/09/2014 Problem 12/20/2019 Data migrated from [employer] on 10/23. [facility] ,[facility], [facility] [place] Osteoarthritis (disorder) Acti ve 03/09/2014 Problem 12/20/2019 Data migrated from [employer] on 10/23. [facility] ,[facility], [facility] [place] Replacement of mitral valve (procedure) Active 03/09/2014 Problem 12/04/2014 12Data migrated fro m [employer] on 10/23/14. [facility] Anemia (disorder) Active 01/04/2014 Problem 12/20/2019 Data migrated from [employer] on 10/23. [facility] ,[facility], [facility] [place] Dental abscess (disorder) Reso lved 10/13/2013 Problem 12/20/2019 Data migrated from [employer] on 12/11. [facility] ,[facility], [facility] [place] V49.81ASYMPTOMATIC MENOPAUSAL STATE Active 09/03/2013 [facility] Postmenopausal state (finding) Active 09/01/2013 Problem 12/20/2019 Data migrated from [employer] on 10/23. [facility] ,[facility], [facility] [place] Acute cystitis (disorder) Reso lved 07/13/2013 Problem 12/20/2019 Data migrated from [employer] on 12/11. [facility] ,[facility], [facility] [place] Urinary incontinence (finding) Active 03/03/2013 Problem 12/20/2019 Data migrated from [employer] on 10/23. [facility] ,[facility], [facility] [place] Mitral valve stenosis (disorder) Active 01/20/2013 Problem 12/20/2019 Data migrated from [employer] on 10/23. [facility] ,[facility], [facility] [place] Atrial fibrillation (disorder) Active 01/20/2013 Problem 12/04/2014 2Data migrated from [employer] on 09/26 . [facility] ABNORMAL LABS Active 10/03/2012 [facility] ABDOMEN PAIN Active 09/04/2012 [facility] V76.51/V72.83/564.00/789.06 Ac tive 02/23/2011 [facility] UNK Active 0 02/23/2011 [facility] ROUTINE Active 02/02/2011 [facility] Essential hypertension (disorder) Active 05/27/1959 Problem 12/20/2019 Data migrated from [employer] on 10/23. [facility] ,[facility], [facility] [place] History of - CVA (context-dependent category) Active 05/27/1959 Problem 12/20/2019 Data migrated from [employer] on 10/23/14. [facility] ,[facility], [facility] [place] Diabetes mellitus type 2 (disorder) Active 05/27/1959 Problem 12/20/2019 Data migrated from [employer] on 10/23. [facility] ,[facility], [facility] [place] Hyperlipidemia (disorder) Acti ve 05/27/1959 Problem 12/04/2014 5Data migrated from [employer] on 09/26 . [facility] Chronic atrial fibrillation (disorder) Active Problem [facility], [facility] [place] Cerebrovascular accident (disorder) Resolved Problem [facility], [facility] [place] Diabetes mellitus (disorder) R esolved Problem [facility], [facility] [place] History of mitral valve replacement (situation) Active Problem 12/20/2019 [facility] [place] Hypertensive disorder, systemic arterial (disorder) Resolved Problem 12/20/2019 [facility], [facility] [place] Mixed hyperlipidemia (disorder) Active Problem [facility] [place] Warfarin therapy started (regime/therapy) Active Problem 12/20/2019 [facility], [facility] [place] Encounter for screening mammogram for ma lignant neoplasm of breast 05/17/2017 [facility] 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) Active Prob leah 12/20/2019 [facility] [place] Edema of lower extremity (finding) Active Problem [facility], [facility] [place] Final: 12/04/2014 [facility] 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 09/15/2018 [facility] Hypertensive heart disease with heart failure 09/15/2018 [facility] Chronic combined systolic (congestive) a nd diastolic (congestive) heart failure 09/15/2018 [facility] Presence of cardiac pacemaker 09/15/2018 [facility] Presence of prosthetic heart valve 09/15/2018 [facility] Type 2 diabetes mellitus without complications 09/15/2018 [facility] Chronic atrial fibrillation 09/15/2018 [facility] Hypothyroidism, unspecified 09/15/2018 [facility] Mixed hyperlipidemia 09/15/2018 [facility] Major depressive disorder, single episode, unspecified 09/15/2018 [facility] Rheumatic disorders of both mitral and aortic valves 09/15/2018 [facility] Unspecified osteoarthritis, unspecified site 09/15/2018 [facility] 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 09/15/2018 [facility] care home (current) use of anticoagulants 09/15/2018 [facility] care home (current) use of aspirin 09/15/2018 [facility] Other group home (current) drug therapy 09/15/2018 [facility] CHF NOS Active [facility] HEART FAILURE, UNSPECIFIED Act kash [facility] CHEST PAIN, UNSPECIFIED Active [facility] Medications Medication Details Route Status Patient Instructions [...] procedure PPE Matrix No Longer Active 07/08/2019 [facility] Furosemide 40 mg, Route: IVP, Drug form: INJ, Daily, Dosing Weight 60.909, kg, Start date: 07/08/19 9:00:00 ROUGHER HELPER, Duration: 30 day, Stop date: 08/06/19 9:00:00 CDT No Longer Active 07/08/2019 [facility] 3 ML Insulin Glargine 100 UNT/ML Prefill ed Syringe [Lantus] Notes: (Same as: Lantus) Do not hold ins ulin without contacting prescriber WASTE: F/P - Black; E - Municipal Trash Bin "single patient use only" Stable for 28 days at room temperature Expires in days from Date Inactive 07/08/2019 [facility] latanoprost ophthalmic Notes: Keep refrigerated. (Same as:Xalatan) Opened bottle may be stored at room temperature for 6 weeks Inactive 07/08/2019 [facility] Warfarin 6 mg, 3 tab, Route: P O, Drug form: TAB, Q5PM, Dosing Weight 60.909, kg, Start date: 07/07/19 17:00:00 ROUGHER HELPER, Duration: 1 doses or times, Stop date: 07/07/19 17:00:00 ROUGHER HELPER, 0 Inactive 07/07/2019 [facility] Furosemide Notes: (Same as: Toya merino) MEDICATION WASTE Product Size: 40 mg Product Wasted: ___ mg Inactive 07/07/2019 [facility] travoprost 0.04 MG/ML Ophthalmic Solution [Travatan] 1 drp, Route: OPTH, Drug Form: SOLN, Dosing Weight 60.909, kg, QPM, Start date: 07/07/19 17:00:00 ROUGHER HELPER, Duration: 30 day, Stop date: 08/05/19 17:00:00 CDT Inactive 07/07/2019 [facility] Potassium Chloride Notes: (Gavino e as: K-Dur 20) "Do Not Crush" Give with food and full glass of water For patients unable to swallow tablet, dissolve in one half glass of water. Allow about 2 minutes for the tab lets to disintegrate. Stir before giving to prepare slurry and administer. Please exclude Patients with feeding tube less than 14 [place] (Dobhoff, J-tube etc) and pediatric and patients. Inactive 07/07/2019 [facility] Magnesium Sulfate Notes: WASTE : F/P - Sink; E - Municipal Trash Bin Inactive 07/07/2019 [facility] Saline Flush 0.9% Notes: (Same as: BD Posiflush) Inactive 07/07/2019 [facility] atorvastatin Notes: (Same As: Lipitor) Inactive 07/07/2019 [facility] Calcium Carbonate 1500 MG / Cholecalcife rol 400 UNT Oral Tablet Notes: (Same As: Michael-D, OsCal-D, Oyste r Calcium) Inactive 07/07/2019 [facility] Digoxin 0.125 MG Oral Tablet N otes: Take on an Empty Stomach (Same as: Lanoxin) Inactive 07/07/2019 [facility] Escitalopram Notes: (Same as: Lexapro) Inactive 07/07/2019 [facility] ferrous sulfate Notes: Give wi th food. "Do Not Crush" Inactive 07/07/2019 [facility] Losartan Notes: (Same as: Coza ar) Inactive 07/07/2019 [facility] metoprolol tartrate Notes: (Sa me as: Lopressor) Inactive 07/07/2019 [facility] Omeprazole 40 mg, 1 cap, Route : PO, Drug form: DRC, Daily, Dosing Weight 60.909, kg, Start date: 07/07/19 9:00:00 ROUGHER HELPER, Duration: 30 day, Stop date: 08/05/19 9:00:00 CDT Inactive 07/07/2019 [facility] prednisolone Notes: (Same as: Pred Forte) Inactive 07/07/2019 [facility] Protonix Notes: Tablet should not be chewed or crushed. (Same as: Protonix) Inactive 07/07/2019 [facility] Aspirin 81 MG Enteric Coated Tablet Notes: Do not crush or chew. (Same As: Ecotrin) Inactive 07/07/2019 [facility] Lasix Notes: (Same as: Lasix) MEDICATION WASTE Product Size: 40 mg Product Wasted: ___ mg Inactive 07/07/2019 [facility] Dextrose 50% Syringe (D50W) 12 .5 gm, 25 mL, Route: IVP, Drug Form: INJ, Dosing Weight 60.909, kg, PRN, PRN Blood Glucose Results, Start date: 07/07/19 4:11:00 ROUGHER HELPER, Duration: 30 day, Stop date: 08/06/19 5:10:00 CDT, 0 Inactive 07/07/2019 [facility] Glucagon 1 mg, Route: IM, Drug form: PDR/INJ, PRN, Dosing Weight 60.909, kg, PRN Blood Glucose Results, Start date: 07/07/19 4:11:00 ROUGHER HELPER, Duration: 30 day, Stop date: 08/06/19 5:10:00 CDT, 0 Inactive 07/07/2019 [facility] Insulin Lispro Notes: (Same as : Humalog) Roll in palms of hands gently; Do not shake vigorously. WASTE: F/P - Black; E - Municipal Trash Bin Stable for 28 days at room temperature. Expires in days from Date Inactive 07/07/2019 [facility] Nitroglycerin Notes: (Same as: Nitroquick, Nitrostat) "Do Not Crush" Sublingual tablet Inactive 07/07/2019 [facility] Saline Flush 0.9% Notes: (Same as: BD Posiflush) Inactive 07/07/2019 [facility] Lovenox Notes: Nurse to ensure documentation of patient education per anticoagulation policy. (Same as: Lovenox) Inactive 05/02/2019 [facility] Coumadin Notes: Nurse to ensur e documentation of patient education per anticoagulation policy. Avoid large intake of vitamin-K containing foods diet. (Same As: Coumadin) WASTE: F/P - P Waste Black; E - P Waste Black Inactive 05/01/2019 [facility] travoprost 0.04 MG/ML Ophthalmic Solution [Travatan] 1 drp, Route: OPTH, Drug Form: SOLN, Dosing Weight 60.455, kg, QPM, Start date: 05/01/19 17:00:00 ROUGHER HELPER, Duration: 30 day, Stop date: 05/30/19 17:00:00 ROUGHER HELPER No Longer Active 05/01/2019 [facility] POLYETHYLENE GLYCOL 3350 Notes : Dissolve in 8 oz of water or juice. (Same as: Miralax) Inactive 05/01/2019 [facility] metoprolol extended release No teresa: (Same as: Toprol XL) Do Not Crush Inactive 05/01/2019 [facility] Aspirin 81 MG Enteric Coated Tablet Notes: Do not crush or chew. (Same As: Ecotrin) Inactive 05/01/2019 [facility] atorvastatin Notes: (Same As: Lipitor) Inactive 05/01/2019 [facility] Digoxin 0.125 MG Oral Tablet N otes: Take on an Empty Stomach (Same as: Lanoxin) Inactive 05/01/2019 [facility] Escitalopram Notes: (Same as: Lexapro) Inactive 05/01/2019 [facility] ferrous sulfate Notes: Give wi th food. "Do Not Crush" Inactive 05/01/2019 [facility] Losartan Notes: (Same as: Coza ar) Inactive 05/01/2019 [facility] Omeprazole 40 mg, Route: PO, D rug form: DRC, Daily, Dosing Weight 60.455, kg, Start date: 05/01/19 9:00:00 ROUGHER HELPER, Duration: 30 day, Stop date: 05/30/19 9:00:00 ROUGHER HELPER No Longer Active 05/01/2019 [facility] Warfarin Route: PO, Drug form: TAB, Q-M-W-F, Dosing Weight 60.455, kg, Start date: 05/01/19 9:00:00 ROUGHER HELPER, Duration: 30 day, Stop date: 05/29/19 9:00:00 ROUGHER HELPER No Longer Active 05/01/2019 [facility] prednisolone Notes: (Same as: Pred Forte) Inactive 05/01/2019 [facility] Insulin Glargine 15 unit, 0.15 mL, Route: SUB-Q, Drug form: SOLN, Daily, Dosing Weight 60.455, kg, Start date: 05/01/19 9:00:00 ROUGHER HELPER, Duration: 30 day, Stop date: 05/30/19 9:00:00 ROUGHER HELPER, 0 Inactive 05/01/2019 [facility] Protonix Notes: Tablet should not be chewed or crushed. (Same as: Protonix) Inactive 05/01/2019 [facility] Furosemide 40 MG Oral Tablet N otes: (Same as: Lasix) May cause GI upset. Give with food or milk. Inactive 05/01/2019 [facility] 24 HR Metoprolol Tartrate 25 MG Extended Release Tablet [Toprol] Notes: (Same as: Toprol XL) Do Not Crush Inactive 05/01/2019 [facility] Acetaminophen Notes: Do not ex ceed 4 gm/day. (Same as: Tylenol) Inactive 05/01/2019 [facility] ceFAZolin (SCIP) + sterile water 10 mL Notes: (Same As: Ancef, Kefzol) MEDICATION WASTE Product Size: 1000 mg Product Wasted: ___ mg Inactive 05/01/2019 [facility] Docusate Notes: (Same as: Cola ce) (Do Not Crush) No Longer Active 05/01/2019 [facility] latanoprost ophthalmic Notes: Keep refrigerated. (Same as:Xalatan) Opened bottle may be stored at room temperature for 6 weeks No Longer Active 05/01/2019 [facility] Warfarin Notes: Nurse to ensur e documentation of patient education per anticoagulation policy. Avoid large intake of vitamin-K containing foods diet. WASTE: F/P - P Waste Black; E - P Waste Black (Same As: Coumadin) Inactive 05/01/2019 [facility] Lovenox Notes: Nurse to ensure documentation of patient education per anticoagulation policy. (Same as: Lovenox) Inactive 05/01/2019 [facility] Dextrose 50% Syringe (D50W) 12 .5 gm, 25 mL, Route: IVP, Drug Form: INJ, Dosing Weight 60.455, kg, PRN, PRN Blood Glucose Results, Start date: 04/30/19 17:59:00 ROUGHER HELPER, Duration: 30 day, Stop date: 05/30/19 17:58:00 ROUGHER HELPER, 0 No Longer Active 04/30/2019 [facility] Glucagon 1 mg, Route: IM, Drug form: PDR/INJ, PRN, Dosing Weight 60.455, kg, PRN Blood Glucose Results, Start date: 04/30/19 17:59:00 ROUGHER HELPER, Duration: 30 day, Stop date: 05/30/19 17:58:00 ROUGHER HELPER, 0 No Longer Active 04/30/2019 [facility] Insulin Lispro Notes: (Same as : Humalog) Roll in palms of hands gently; Do not shake vigorously. WASTE: F/P - Black; E - Municipal Trash Bin Stable for 28 days at room temperature. Expires in days from Date No Longer Active 04/30/2019 [facility] protamine (ANES) Route: IV, Dr ug form: INJ, ONCE, Stop date: 04/30/19 16:59:00 ROUGHER HELPER Inactive 04/30/2019 [facility] Hydralazine 10 mg, Route: IVP, Q20Min, Dosing Weight 60.455, kg, PRN Elevated BP, Start date: 04/30/19 16:58:00 ROUGHER HELPER, Duration: 2 doses or times, Stop date: Limited # of times Inactive 04/30/2019 [facility] Metoprolol 1 mg, Route: IVP, Q 5Min, Dosing Weight 60.455, kg, PRN Other -See Comment, Start date: 04/30/19 16:58:00 ROUGHER HELPER, Duration: 5 doses or times, Stop date: Limited # of times Inactive 04/30/2019 [facility] Oxycodone 5 mg, Route: NG, Honorio g form: LIQ, Q4H, Dosing Weight 60.455, kg, PRN Pain Score 4-6, Start date: 04/30/19 16:58:00 ROUGHER HELPER, Duration: 30 day, Stop date: 05/30/19 16:57:00 ROUGHER HELPER Inactive 04/30/2019 [facility] Hydromorphone 0.5 mg, Route: I TECHNICAL PROJECT COORDINATOR, Q5Min, Dosing Weight 60.455, kg, PRN Pain Score 7-10, Start date: 04/30/19 16:58:00 ROUGHER HELPER, Duration: 4 doses or times, Stop date: Limited # of times Inactive 04/30/2019 [facility] Fentanyl 50 microgram, Route: IVP, Q5Min, Dosing Weight 60.455, kg, PRN Pain Score 7-10, Priority: Routine, Start date: 04/30/19 16:58:00 ROUGHER HELPER, Duration: 2 doses or times, Stop date: Limited # of times Inactive 04/30/2019 [facility] Flumazenil 0.2 mg, Route: IVP, PRN, Dosing Weight 60.455, kg, PRN Benzodiazepine Reversal, Initial dose, Start date: 04/30/19 16:58:00 ROUGHER HELPER, Duration: 30 day, Stop date: 05/30/19 16:57:00 ROUGHER HELPER Inactive 04/30/2019 [facility] Naloxone 0.4 mg, Route: IVP, Q 2MIN, Dosing Weight 60.455, kg, PRN Narcotic Reversal, Start date: 04/30/19 16:58:00 ROUGHER HELPER, Duration: 8 doses or times, Stop date: Limited # of times Inactive 04/30/2019 [facility] Ondansetron 4 mg, Route: IVP, ONCE, Dosing Weight 60.455, kg, PRN Nausea & Vomiting, Start date: 04/30/19 16:58:00 ROUGHER HELPER Inactive 04/30/2019 [facility] heparin (ANES) Route: IV, Drug form: INJ, ONCE, Stop date: 04/30/19 16:43:00 ROUGHER HELPER Inactive 04/30/2019 [facility] phenylephrine (ANES) Route: IV , Drug form: INJ, ONCE, Stop date: 04/30/19 16:38:00 ROUGHER HELPER Inactive 04/30/2019 [facility] pantoprazole Notes: Tablet brinda uld not be chewed or crushed. (Same as: Protonix) N o Longer Active 04/30/2019 [facility] ceFAZolin (ANES) Route: IV, Dr ug form: INJ, ONCE, Stop date: 04/30/19 16:18:00 ROUGHER HELPER Inactive 04/30/2019 [facility] midazolam (ANES) Route: IV, Dr ug form: SOLN, ONCE, Stop date: 04/30/19 16:13:00 ROUGHER HELPER Inactive 04/30/2019 [facility] fentaNYL (ANES) Route: IV, Honorio g form: INJ, ONCE, Stop date: 04/30/19 16:13:00 ROUGHER HELPER Inactive 04/30/2019 [facility] Cefazolin Notes: (Same As: Anc ef, Kefzol) MEDICATION WASTE Product Size: 1000 mg Product Wasted: ___ mg Inactive 04/30/2019 [facility] propofol (ANES) 10 mg Route: I V, Drug form: INJ, Start date: 04/30/19 15:42:00 ROUGHER HELPER, Stop date: 04/30/19 16:42:00 ROUGHER HELPER Inactive 04/30/2019 [facility] Nicardipine Notes: Same as: Ca rdene Concentration: (0.2 mg /1 ml ) No Longer Active 04/30/2019 [facility] Acetaminophen Notes: Infuse ov er 15 minutes Do not exceed 4gm/day of acetaminophen MEDICATION WASTE Product Size: 1000 mg Product Wasted: ___ mg No Longer Active 04/30/2019 [facility] Ondansetron Notes: (Same as: Oseas heard) MEDICATION WASTE Product Size: 4 mg Product Wasted: ___ mg No Longer Active 04/30/2019 [facility] Sodium Chloride 0.9% (Bolus) IV 250 mL, 250 ml/hr, Infuse Over: 1 hr, Route: IV, 250, Drug form: INJ, ONCALL, Priority: Routine, Dosing Weight 61.364 kg, Start date: 04/30/19 10:00:00 ROUGHER HELPER, Duration: 1 doses or times, Stop date: 04/30/19 17:00:00 ROUGHER HELPER, 0 No Longer Active 04/30/2019 [facility] Sodium Chloride 0.9% IV 750 mL 750 mL, Rate: 75 ml/hr, Infuse over: 10 hr, Route: IV, Dosing Weight 61.364 kg, Total Volume: 750, Start date: 04/30/19 9:56:00 ROUGHER HELPER, Duration: 24 hr, Stop date: 05/01/19 9:55:00 ROUGHER HELPER, 1.68, m2, 0 No Longer Active 04/30/2019 [facility] Sodium Chloride 0.9% (titrate) 250 mL 250 mL, Rate: To prime line and flush remaining blood products., Dosing Weight 61.364, kg, Route: IV, Total Volume: 250, Start Date: 04/30/19 9:56:00 ROUGHER HELPER, Duration: 1 day, Stop date: 05/01/19 9:55:00 ROUGHER HELPER, Replace Every: 24 hr, 0 No Longer Active 04/30/2019 [facility] ferrous sulfate 325 mg oral enteric coated tablet 325 mg = 1 tab, PO, Daily, # 60 tab, 3 Refill(s) Active 04/10/2019 [facility] Enoxaparin Notes: Nurse to ens ure documentation of patient education per anticoagulation policy. (Same as: Lovenox) Inactive 03/04/2019 [facility] enoxaparin 60 mg/0.6 mL subcutaneous solution 60 mg, SUB-Q, Q12H, X 7 day, # 14 syr, 0 Refill(s), Pharmacy: [facility]/pharmacy #[id number] Active 03/04/2019 [facility] Sodium Chloride 0.9% IV 250 mL 250 mL, Rate: 20 ml/hr, Infuse over: 12.5 hr, Route: IV, Dosing Weight 59.545 kg, Total Volume: 250, Start date: 03/04/19 11:28:00 CDT, Duration: 24 hr, Stop date: 03/05/19 11:27:00 CDT, 1.65, m2, 0 Inactive 03/04/2019 [facility] Ondansetron Notes: (Same as: Oseas heard) MEDICATION WASTE Product Size: 4 mg Product Wasted: ___ mg Inactive 03/04/2019 [facility] Acetaminophen Notes: Do not ex ceed 4 gm/day. (Same as: Tylenol) Inactive 03/04/2019 [facility] acetaminophen-codeine #3 Notes : Do not exceed 4gm/day of acetaminophen. (Same as: Tylenol with Codeine # 3) Inactive 03/04/2019 [facility] omeprazole 40 mg oral delayed release capsule 40 mg = 1 cap, PO, Daily, # 30 cap, 1 Refill(s) Active 03/04/2019 [facility] prednisoLONE acetate 1% preservative-aretha e ophthalmic suspension See Instructions, 1 drop into left eye 3 times a day, 0 Refill(s) Active 03/04/2019 [facility] Calcium 600 +D oral tablet 1 t ab, PO, BID, 0 Refill(s) Active 03/04/2019 [facility] Acetaminophen 325 MG / tramadol hydrochl oride 37.5 MG Oral Tablet 1 tab, PO, Daily, PRN Pain, # 60 tab, 0 Refill(s) Active 03/04/2019 [facility] Metoprolol Tartrate 25 mg oral tablet = 1 tab, PO, BID, # 180 tab, 0 Refill(s), [id number] Nitroglycerin 0.4 MG Sublingual Tablet See Instructions, # 50 tab, Refill(s) 1, PLACE 1 TAB UNDER TONGUE EVER 5 MINUTES X 3 DOSES FOR CHEST PAIN IF NO IMPROVEMENT SEEK MEDICAL ATT., [id number] Active 11/09/[facility] warfarin 5 mg oral tablet = 1 tab, PO, Daily, # 90 tab, 1 Refill(s), [id number] Active 09/03/[facility] escitalopram 10 mg oral tablet 10 mg = 1 tab, PO, Daily, # 90 tab, 0 Refill(s), [id number] Active 08/13/[facility] Metformin hydrochloride 1000 MG Oral Tablet 1,000 mg = 1 tab, PO, BID, # 180 tab, 1 Refill(s), [id number] Active 07/02/2018 [facility] Metformin hydrochloride 1000 MG Oral Tablet 1,000 mg = 1 tab, PO, BID, # 180 tab, 1 Refill(s), [id number] Inactive 07/01/2018 [facility] ACCU-CHEK ADRIÁN PLUS TEST STRP See Instructions, # 50 strip, Refill(s) 5, USE DIRECTED ONCE DAILY, [id number] Active 06/18/[facility] Nitroglycerin 0.4 MG Sublingual Tablet See Instructions, # 50 tab, Refill(s) 1, PLACE 1 TAB UNDER TONGUE EVER 5 MINUTES X 3 DOSES FOR CHEST PAIN IF NO IMPROVEMENT SEEK MEDICAL ATT., [id number] No Longer Active 05/29/2018 [facility] Ofloxacin 3 MG/ML Otic Solution 5 drp, RIGHT EAR, BID, # 10 mL, 0 Refill(s), [id number] Active 05/02/[facility] Coumadin Notes: [...] Bin "single patient use only" Inactive 02/27/2018 [facility] atorvastatin Notes: (Same as: Lipitor) Inactive 02/27/2018 [facility] travoprost 0.04 MG/ML Ophthalmic Solution [Travatan] Notes: Non-formulary Drug Same As: Travatan or Travatan Z Inactive 02/26/2018 [facility] Warfarin 5 mg, 1 tab, Route: P O, Drug form: TAB, Q5PM, Dosing Weight 63.6, kg, Start date: 02/26/18 17:00:00 CDT, Duration: 30 day, Stop date: 03/27/18 17:00:00 CDT Inactive 02/26/2018 [facility] Warfarin Notes: Nurse to ensur e documentation of patient education per anticoagulation policy. Avoid large intake of vitamin-K containing foods diet. WASTE: F/P - P Waste Black; E - P Waste Black (Same As: Coumadin) Inactive 02/26/2018 [facility] 24 HR Metoprolol Tartrate 25 MG Extended Release Tablet [Toprol] Notes: (Same as: Toprol XL) Do Not Crush Inactive 02/26/2018 [facility] Losartan Notes: (Same as: Coza ar) Inactive 02/26/2018 [facility] Furosemide 40 MG Oral Tablet N otes: (Same as: Lasix) May cause GI upset. Give with food or milk. Inactive 02/26/2018 [facility] Escitalopram Notes: (Same as: Lexapro) Inactive 02/26/2018 [facility] Digoxin 0.125 MG Oral Tablet N otes: Take on an Empty Stomach (Same as: Lanoxin) Inactive 02/26/2018 [facility] Aspirin 81 MG Enteric Coated Tablet Notes: Do not crush or chew. (Same As: Ecotrin) Inactive 02/26/2018 [facility] Protonix Notes: Tablet should not be chewed or crushed. (Same as: Protonix) Inactive 02/26/2018 [facility] Insulin Lispro Notes: (Same as : Humalog ) Roll in palms of hands gently; Do not shake `vigorously. "Single Patient Use Only " WASTE: F/P - Black; E - Municipal Trash Bin Stable for 28 days at room temp erature. Expires in days from Date Inactive 02/26/2018 [facility] Dextrose 50% Syringe 50 mL, Ro inés: IVP, Dosing Weight 63.6, kg, PRN, PRN Blood Glucose Results, Start date: 02/26/18 2:37:00 CDT, Duration: 30 day, Stop date: 03/28/18 2:36:00 CDT Inactive 02/26/2018 [facility] Glucagon 1 mg, Route: IM, PRN, Dosing Weight 63.6, kg, PRN Blood Glucose Results, Start date: 02/26/18 2:37:00 CDT, Duration: 30 day, Stop date: 03/28/18 2:36:00 CDT Inactive 02/26/2018 [facility] Lasix Notes: (Same as: Lasix) MEDICATION WASTE Product Size: 40 mg Product Wasted: ___ mg No Longer Active 02/26/2018 [facility] Katherine Gonzalez Notes: (Same A s: Katherine Gonzalez) "Do Not Crush" No Longer Active 02/25/2018 [facility] Benadryl 12.5 mg, 0.5 tab, Rou te: PO, Drug form: TAB, Q8H, Dosing Weight 63.636, kg, PRN as needed for itching, Priority: Routine, Start date: 02/25/18 18:49:00 CDT, Duration: 30 day, Stop date: 03/27/18 18:4 8:00 CDT No Longer Active 02/25/2018 [facility] Lactulose 667 MG/ML Oral Solution Notes: (Same as:Chronulac) No Longer Active 02/25/2018 [facility] Seroquel Notes: (Same as: SERO quel) No Longer Active 02/25/2018 [facility] Vasotec Notes: (Same as: Vasot ec-IV) No Longer Active 02/25/2018 [facility] Melatonin Notes: (Same as: Elisha atonin) No Longer Active 02/25/2018 [facility] Ondansetron Notes: (Same as: Oseas heard) MEDICATION WASTE Product Size: 4 mg Product Wasted: ___ mg No Longer Active 02/25/2018 [facility] Acetaminophen 325 MG / Hydrocodone Evan trate 5 MG Oral Tablet Notes: (Same as: [place] 325/5) Do not ex ceed 4gm/day of acetaminophen. No Longer Active 02/25/2018 [facility] Docusate Notes: (Same as: Cola ce) (Do Not Crush) No Longer Active 02/25/2018 [facility] Morphine Notes: (Same as:MORPh ine Sulfate) No Longer Active 02/25/2018 [facility] Acetaminophen Notes: Do not ex ceed 4 gm/day. (Same as: Tylenol) No Longer Active 02/25/2018 [facility] Saline Flush 0.9% Notes: (Same as: BD Posiflush) Inactive 02/25/2018 [facility] 3 ML Insulin Glargine 100 UNT/ML Prefill ed Syringe [Lantus] See Instructions, INJECT 30 UNITS SUB-Q AT BEDTIME ROTATE INJECTION SITES, # 15 syr, 4 Refill(s), [id number] 02/01[facility] warfarin 1 mg oral tablet See Instructions, 1 tab PO every MWF, # 1 tab, 2 Refill(s), [id number] Active 12/30/2017 [facility] Metformin hydrochloride 1000 MG Oral Tablet 1,000 mg = 1 tab, PO, BID, # 180 tab, 1 Refill(s), [id number] No Longer Active 12/21/2017 [facility] warfarin 5 mg oral tablet 5 mg = 1 tab, PO, Daily, # 90 tab, 1 Refill(s), [id number] Active 11/05/2017 [facility] losartan 25 mg oral tablet 25 mg = 1 tab, PO, Daily, # 90 tab, 1 Refill(s), Pharmacy: [facility] #[id number] Active 11/05/2017 [facility] escitalopram 10 mg oral tablet 10 mg = 1 tab, PO, Daily, # 90 tab, 1 Refill(s), Pharmacy: [facility]/pharmacy #[id number] Active 10/07/2017 [facility] warfarin 1 mg oral tablet See Instructions, TAKE ONE TABLET BY MOUTH DAILY NEEDED, # 30 tab, 2 Refill(s), Pharmacy: [facility]/pharmacy #[id number] Active 10/01/2017 [facility] Acetaminophen 325 MG / tramadol hydrochl oride 37.5 MG Oral Tablet 1 tab, PO, Daily, take as needed, # 30 t ab, 1 Refill(s) Active 07/05/2017 [facility] Oseltamivir 75 MG Oral Capsule [Tamiflu] 75 mg = 1 cap, PO, BID, # 10 cap, 0 Refill(s) Active 07/05/2017 [facility] BD Ultra-Fine Mini Insulin [place] 3 1G 5mm=3/16 inch 1 ea, MISC, Daily, # 100 ea, 3 Refill(s) Active 07/05/2017 [facility] benzonatate 100 mg oral capsule 100 mg = 1 cap, PO, TID, PRN cough, do not crush or chew, X 10 day, # 30 cap, 0 Refill(s), [id number] No Longer Active 06/21/2017 [facility] Cefuroxime 500 MG Oral Tablet 500 mg = 1 tab, PO, BID, X 7 day, # 14 tab, 0 Refill(s), [id number] No Longer Active 06/21/2017 [facility] Furosemide 40 MG Oral Tablet N otes: (Same as: Lasix) May cause GI upset. Give with food or milk. No Longer Active 12/02/2014 [facility] Levofloxacin 250 MG Oral Tablet [Levaquin] 250 mg = 1 tab, PO, Q24H, X 5 day, # 5 tab, 0 Refill(s) Active 12/01/2014 [facility] Warfarin Notes: Nurse to ensur e documentation of patient education per anticoagulation policy. Avoid large intake of vitamin-K containing foods diet. (Same As: Coumadin) No Longer Active 11/30/2014 [facility] Levaquin Notes: (Same as:Levaq uin) No Longer Active 11/30/2014 [facility] Losartan Notes: (Same as: Coza ar) No Longer Active 11/30/2014 [facility] Escitalopram Notes: (Same as: Lexapro) No Longer Active 11/30/2014 [facility] Morphine Notes: (Same as:MORPh ine Sulfate) No Longer Active 11/30/2014 [facility] digoxin 125 mcg (0.125 mg) oral tablet Notes: Take on an Empty Stomach (Same as: Lanoxin) No Longer Active 11/30/2014 [facility] travoprost 0.04 MG/ML Ophthalmic Solution [Travatan] Notes: (Same As: Travatan) No Longer Active 11/30/2014 [facility] Levemir FlexPen Notes: Same as Levemir Do not hold insulin without contacting prescriber "single patient use only" No Longer Active 11/30/2014 [facility] Insulin Glargine 30 unit, Rout e: SUB-Q, Drug form: SOLN, Bedtime, Dosing Weight 61.619, kg, Start date: 11/29/14 21:00:00, Duration: 30 day, Stop date: 12/28/14 21:00:00 Inactive 11/30/2014 [facility] atorvastatin Notes: (Same As: Lipitor) No Longer Active 11/30/2014 [facility] Mucinex Max Strength Notes: (S alyssa as: Guaifenesin LA, Humibid LA, Mucinex) "Do Not Crush" Take medication with plenty of water. No Longer Active 11/30/2014 [facility] Warfarin Notes: Nurse to ensur e documentation of patient education per anticoagulation policy. Avoid large intake of vitamin-K containing foods diet. (Same As: Coumadin) No Longer Active 11/29/2014 [facility] metoprolol tartrate Notes: (Sa me as: Lopressor) No Longer Active 11/29/2014 [facility] Metformin hydrochloride 1000 MG Oral Tablet Notes: (Same as: Glucophage) Take with meal No Longer Active 11/29/2014 [facility] Aspirin 81 MG Enteric Coated Tablet Notes: Do not crush or chew. (Same As: Ecotrin) No Longer Active 11/29/2014 [facility] codeine-guaiFENesin Notes: (Sa me As: Robitussin AC) No Longer Active 11/29/2014 [facility] Ketorolac Tromethamine 5 MG/ML Ophthalmic Solution Notes: (Same as:Acular) For ophthalmic use. No Longer Active 11/29/2014 [facility] prednisolone 1.2 MG/ML Ophthalmic Suspen ron [Pred Mild] 1 drp, Route: LEFT EYE, QID, Drug form: SUSP, Start date: 11/29/14 13:00:00, Duration: 30 day, Stop date: 12/29/14 9:00:00 Inactive 11/29/2014 [facility] prednisolone 10 MG/ML Ophthalmic Solution [Prednisol] Notes: (Same as: Pred Forte) N o Longer Active 11/29/2014 [facility] Levaquin 500 mg, Route: IVPB, [id number], Dosing Weight 61.619, kg, Start date: 11/29/14 11:00:00, Duration: 30 day, Stop date: 12/28/14 11:00:00 Inactive 11/29/2014 [facility] codeine-guaiFENesin Notes: (Sa me As: Iainitussin AC) Inactive 11/29/2014 [facility] tramadol 50 mg oral tablet Not es: Not to exceed 400mg/day. (Same As: Ultram) N o Longer Active 11/29/2014 [facility] Tylenol Notes: Do not exceed 4 gm/day. (Same as: Tylenol) No Longer Active 11/29/2014 [facility] Lasix Notes: (Same as: Lasix) MEDICATION WASTE Product Size: 40 mg Product Wasted: ___ mg No Longer Active 11/29/2014 [facility] Tessalon Perles 100 mg, Route: PO, Drug form: CAP, TID, Dosing Weight 61.619, kg, PRN Cough, Priority: NOW, Start date: 11/29/14 10:09:00, Duration: 30 day, Stop date: 12/29/14 10:08:00 Inactive 11/29/2014 [facility] Lorazepam Notes: (Same as: Monica owens) No Longer Active 11/29/2014 [facility] Acetaminophen 325 MG / tramadol hydrochl oride 37.5 MG Oral Tablet [Ultracet] 1 tab, Route: PO, Drug Form: TAB, Dosing Weight 61.619, kg, Q12H, PRN, Start date: 11/29/14 10:06:00, Duration: 30 day, Stop date: 12/29/14 10:05:00, moderate pain Inactive 11/29/2014 [facility] pneumococcal capsular polysaccharide typ e 1 vaccine / pneumococcal capsular polysaccharide type 10A vaccine / pneumococcal capsular polysaccharide type 11A vaccine / pneumococcal capsular polysaccharide type 12F vaccine / pneumococcal capsular polysacchar 0.5 mL, Route: IM, Daily, Start date: 11/29/14 9:00:00, Duration: 1 doses or times, Stop date: 11/29/14 9:00:00 Inactive 11/29/2014 [facility] Insulin, Aspart, Human Notes: Roll in palms of hands gently; Do not shake vigorously. (Same as: NovoLOG) "single patient use only" Stable for 28 days at room temperature. Expires in days from Date No Longer Active 11/29/2014 [facility] Glucagon 1 mg, Route: IM, Drug form: PDR/INJ, PRN, Dosing Weight 68.182, kg, PRN Blood Glucose Results, Start date: 11/29/14 2:03:00, Duration: 30 day, Stop date: 12/29/14 2:02:00 No Longer Active 11/29/2014 [facility] Dextrose 50% Syringe 25 gm, 50 mL, Route: IVP, Drug Form: INJ, Dosing Weight 68.182, kg, PRN, PRN Blood Glucose Results, Start date: 11/29/14 2:03:00, Duration: 30 day, Stop date: 12/29/14 2:02:00 No Longer Active 11/29/2014 [facility] atropine 0.5 mg, 5 mL, Route: IVP, Drug form: INJ, PRN, PRN Bradycardia, Start date: 11/29/14 1:56:00, Duration: 30 day, Stop date: 12/29/14 1:55:00 No Longer Active 11/29/2014 [facility] Nitroglycerin Notes: (Same as: Nitroquick, Nitrostat) "Do Not Crush" Sublingual tablet No Longer Active 11/29/2014 [facility] Acetaminophen 325 MG / tramadol hydrochl oride 37.5 MG Oral Tablet [Ultracet] Special Instructions: takes with milk to prevent stomach upset Active 11/29/2014 [facility] LORazepam 1 mg oral tablet 1 m g = 1 tab, PO, Bedtime, PRN Anxiety, # 20 tab, 0 Refill(s) Active 11/29/2014 [facility] prednisolone 1.2 MG/ML Ophthalmic Suspen ron [Pred Mild] 1 drp, LEFT EYE, QID, # 10 ml, 0 Refill(s) Active 11/29/2014 [facility] travoprost 0.04 MG/ML Ophthalmic Solution [Travatan] 1 drp, BOTH EYES, Bedtime, # 3 ml, 0 Refill(s) Active 11/29/2014 [facility] Ketorolac Tromethamine 5 MG/ML Ophthalmic Solution 1 drp, RIGHT EYE, QID, # 5 ml, 0 Refill(s) Active 11/29/2014 [facility] Aspirin 81 MG Enteric Coated Tablet Special Instructions: with food Active 11/29/2014 [facility] Metformin hydrochloride 1000 MG Oral Tablet Special Instructions: with meals Activ e 11/29/2014 [facility] metoprolol tartrate 25 mg oral tablet Special Instructions: takes with milk Active 11/29/2014 [facility] digoxin 125 mcg (0.125 mg) oral tablet Special Instructions: takes with milk to prevent stomach upset Active 11/29/2014 [facility] escitalopram 10 mg oral tablet Special Instructions: takes with milk Active 11/29/2014 [facility] atorvastatin 20 mg oral tablet Special Instructions: takes with milk Active 11/29/2014 [facility] losartan 25 mg oral tablet Spe cial Instructions: takes with milk Active 11/29/2014 [facility] 3 ML Insulin Glargine 100 UNT/ML Prefill ed Syringe [Lantus] 30 unit, SUB-Q, Bedtime, # 1 pen(s), 3 Refill(s) Active 11/29/2014 [facility] Furosemide 40 MG Oral Tablet S pecial Instructions: takes with milk Active 11/29/2014 [facility] warfarin 5 mg oral tablet Spec ial Instructions: with milk Active 11/29/2014 [facility] warfarin 6 mg oral tablet Spec ial Instructions: with milk Active 11/29/2014 [facility] Saline Flush 0.9% Notes: (Same as: BD Posiflush) No Longer Active 11/28/2014 [facility] Acetaminophen 650 mg, Route: P O, Drug form: TAB, ONCE, Dosing Weight 68.182, kg, Priority: STAT, Start date: 11/28/14 18:57:00, Stop date: 11/28/14 18:57:00 Inactive 11/28/2014 [facility] Aspirin 325 mg, Route: PO, Honorio g form: ECTAB, ONCE, Dosing Weight 68.182, kg, Priority: STAT, Start date: 11/28/14 18:51:00, Stop date: 11/28/14 18:51:00 Inactive 11/28/2014 [facility] Lasix 40 mg, Route: IVP, Drug form: INJ, ONCE, Dosing Weight 68.182, kg, Priority: STAT, Start date: 11/28/14 18:50:00, Stop date: 11/28/14 18:50:00 Inactive 11/28/2014 [facility] influenza virus vaccine, inactivated 0.5 ml, Route: IM, Drug Form: INJ, ONCALL, Start date: 07/01/08 23:18:06, Stop date: 07/31/08 23:03:06 IM No Longer Active [facility] 07/02/2008 [facility] Allergies, Adverse Reactions, Alerts Substance Category Reaction Severity Reaction type Status Date Reported Comments Source No Known Medication Allergies Assertion Drug aller gy [facility] NKFA Assertion Food allergy Active [facility] Immunizations Immunization Date Given Site Status Last Updated Comments Source pneumococcal 13-valent vaccine 02/26/2018 Not Given [facility], [facility] [place] influenza virus vaccine, inactivated 02/18/2018 completed V ega [facility], [facility] [place] influenza virus vaccine, inactivated<sup>1</sup> 04/03/2017 Left Deltoid completed Meredith Result Comment: Patient waited 15 min with no reaction [facility], [facility] [place] influenza virus vaccine, inactivated 03/01/2016 Left Deltoid completed Guevara [facility], [facility] [place] influenza virus vaccine, inactivated<sup>2</sup> 03/09/2014 Right Deltoid completed GE Result Comment: fluzone high dose [[id number]]. Migrated from OBS ; Data migrated from [employer] on 06/28/2015. [facility], [facility] [place] pneumococcal 23-valent vaccine<sup>4</sup> 09/01/2013 Right Thigh completed GE Result Comment: pneumovax 2 3 [[id number]]. Migrated from OBS VIS: Pneumovax 23: 03/01/09 ; Data migrated from GE [employer] on 06/28/2015. [facility], [facility] [place] influenza virus vaccine, inactivated<sup>3</sup> 03/03/2013 Right Deltoid completed GE Result Comment: fluzone (>3 yrs.) [[id number]]. Migrated from OBS ; Data migrated from [employer] on 06/28/2015. [facility], [facility] [place] influenza virus vaccine, inactivated 07/09/2008 Right upper forearm completed [facility], [place] influenza virus vaccine, inactivated 07/09/2008 completed Sam renee [facility] Results Order Name Results Value Reference Range Date Interpretation Comments Source CARDIAC ENZYMES Troponin-I <0.02 0.00 - 0.40 07/07/2019 [facility] CARDIAC ENZYMES Troponin-I <0.02 0.00 - 0.40 07/07/2019 [facility] CHEM PANEL Glucose Lvl 160 70 - 99 07/07/2019 [facility] CHEM PANEL BUN 28 7 - 22 07/07/2019 [facility] CHEM PANEL Creatinine Lvl 0.94 0.50 - 1.40 07/07/2019 [facility] CHEM PANEL Sodium Lvl 141 135 - 145 07/07/2019 [facility] PANEL Potassium Lvl 3.7 3.5 - 5.1 07/07/2019 [facility] CHEM PANEL Chloride Lvl 106 95 - 109 07/07/2019 [facility] CHEM PANEL CO2 29 24 - 32 07/07/2019 [facility] PANEL AGAP 9.7 10.0 - 20.0 07/07/2019 [facility] CHEM PANEL Calcium Lvl 9.2 8.5 - 10.5 07/07/2019 [facility] PANEL eGFR 60 07/07/2019 Result Comment: [...] should be multiplied by the estimated BMI. [facility] CHEM PANEL Total Protein 7.4 6.4 - 8.4 07/07/2019 [facility] CHEM PANEL Albumin Lvl 3.5 3.5 - [...] HEMATOLOGY Hgb 7.9 12.0 - 16.0 07/07/2019 [facility] HEMATOLOGY Hct 25.2 36.0 - 48.0 07/07/2019 [facility] HEMATOLOGY MCV 74.1 80.0 - 98.0 07/07/2019 [facility] HEMATOLOGY MCH 23.4 27.0 - 31.0 07/07/2019 [...] HEMATOLOGY Eosinophils 4.5 0.0 - 4.0 07/07/2019 [facility] HEMATOLOGY Basophils 0.5 0.0 - 1.0 07/07/2019 [facility] HEMATOLOGY Neutrophils # 2.4 1.5 - 8.1 07/07/2019 [facility] HEMATOLOGY Lymphocytes # 1.2 1.0 - 5.5 07/07/2019 [facility] HEMATOLOGY Monocytes # 0.4 0.0 - 0.8 07/07/2019 [facility] HEMATOLOGY Eosinophils # 0.2 0.0 - 0.5 07/07/2019 [facility] HEMATOLOGY Microcyte 1+ *ABN* (07/07/19 7:35 AM) None Seen 07/07/2019 [facility] CARDIAC ENZYMES Total CK 66 12 - 191 07/07/2019 [facility] CARDIAC ENZYMES Troponin-I <0.02 0.00 - 0.40 07/07/2019 [facility] CARDIAC ENZYMES BNP 110 <=100 pg/mL 07/07/2019 [...] PANEL CO2 27 24 - 32 07/07/2019 [facility] CHEM PANEL Calcium Lvl 8.8 8.5 - [...] PANEL Globulin 4.2 2.7 - 4.2 07/07/2019 [facility] CHEM PANEL A/G Ratio 0.9 0.7 - 1.6 07/07/2019 [facility] CHEM PANEL eGFR 48 07/07/2019 Result Comment: [...] should be multiplied by the estimated BMI. [facility] CHEM PANEL Magnesium Lvl 1.9 1.8 - 2.4 07/07/2019 [facility] HEMATOLOGY WBC 5.1 3.7 - 10.4 07/07/2019 [facility] HEMATOLOGY RBC 3.58 4.20 - 5.40 07/07/2019 [facility] Hgb 8.4 12.0 - 16.0 07/07/2019 [facility] HEMATOLOGY Hct 26.6 36.0 - 48.0 07/07/2019 [facility] HEMATOLOGY MCV 74.2 80.0 - 98.0 07/07/2019 [facility] MCH 23.3 27.0 - 31.0 07/07/2019 [facility] HEMATOLOGY MCHC 31.5 32.0 - 36.0 07/07/2019 [facility] HEMATOLOGY RDW 18.3 11.5 - 14.5 07/07/2019 [facility] Platelet 162 133 - 450 07/07/2019 [facility] MPV 8.9 7.4 - 10.4 07/07/2019 [facility] HEMATOLOGY PT 24.2 12.0 - 14.7 07/07/2019 [facility] HEMATOLOGY INR 2.13 0.85 - 1.17 07/07/2019 [facility] PTT 47.2 22.9 - 35.8 07/07/2019 [facility] Segs 60.4 45.0 - 75.0 07/07/2019 [facility] HEMATOLOGY Lymphocytes 26.4 20.0 - 40.0 07/07/2019 [facility] HEMATOLOGY Monocytes 8.4 2.0 - 12.0 07/07/2019 [facility] Eosinophils 4.2 0.0 - 4.0 07/07/2019 [facility] Basophils 0.6 0.0 - 1.0 07/07/2019 [facility] Neutrophils # 3.1 1.5 - 8.1 07/07/2019 [facility] Lymphocytes # 1.3 1.0 - 5.5 07/07/2019 [facility] Monocytes # 0.4 0.0 - 0.8 07/07/2019 [facility] Eosinophils # 0.2 0.0 - 0.5 07/07/2019 [facility] Microcyte 1+ *ABN* (07/06/19 7:45 PM) None Seen 07/07/2019 [facility] CHEM PANEL Glucose Lvl 180 70 - 99 05/01/2019 [facility] CHEM PANEL BUN 23 7 - 22 05/01/2019 [facility] CHEM PANEL Creatinine Lvl 0.88 0.50 - 1.40 05/01/2019 [facility] CHEM PANEL Sodium Lvl 139 135 - 145 05/01/2019 [facility] CHEM PANEL Potassium Lvl 4.0 3.5 - 5.1 05/01/2019 [facility] CHEM PANEL Chloride Lvl 108 95 - 109 05/01/2019 [facility] CHEM PANEL CO2 24 24 - 32 05/01/2019 [facility] CHEM PANEL AGAP 11.0 10.0 - 20.0 05/01/2019 [facility] CHEM PANEL Calcium Lvl 8.6 8.5 - 10.5 05/01/2019 [facility] CHEM PANEL eGFR 65 05/01/2019 Result Comment: [...] should be multiplied by the estimated BMI. [facility] CHEM PANEL Magnesium Lvl 2.3 1.8 - 2.4 05/01/2019 [facility] HEMATOLOGY Segs 65.7 45.0 - 75.0 05/01/2019 [facility] HEMATOLOGY Lymphocytes 23.2 20.0 - 40.0 05/01/2019 [facility] HEMATOLOGY Monocytes 8.8 2.0 - 12.0 05/01/2019 [facility] HEMATOLOGY Eosinophils 1.7 0.0 - 4.0 05/01/2019 [facility] HEMATOLOGY Basophils 0.6 0.0 - 1.0 05/01/2019 [facility] HEMATOLOGY Neutrophils # 3.1 1.5 - 8.1 05/01/2019 [facility] HEMATOLOGY Lymphocytes # 1.1 1.0 - 5.5 05/01/2019 [facility] HEMATOLOGY Monocytes # 0.4 0.0 - 0.8 05/01/2019 [facility] HEMATOLOGY Eosinophils # 0.1 0.0 - 0.5 05/01/2019 [facility] HEMATOLOGY Microcyte 2+ *ABN* (05/01/19 2:45 AM) None Seen 05/01/2019 [facility] HEMATOLOGY WBC 4.7 3.7 - 10.4 05/01/2019 [facility] HEMATOLOGY RBC 3.32 4.20 - 5.40 05/01/2019 [facility] HEMATOLOGY Hgb 7.7 12.0 - 16.0 05/01/2019 [facility] HEMATOLOGY Hct 23.6 36.0 - 48.0 05/01/2019 [facility] HEMATOLOGY MCV 71.2 80.0 - 98.0 05/01/2019 [facility] HEMATOLOGY MCH 23.3 27.0 - 31.0 05/01/2019 [facility] HEMATOLOGY MCHC 32.7 32.0 - 36.0 05/01/2019 [facility] HEMATOLOGY RDW 20.1 11.5 - 14.5 05/01/2019 [facility] HEMATOLOGY Platelet 103 133 - 450 05/01/2019 [facility] HEMATOLOGY MPV 9.0 7.4 - 10.4 05/01/2019 [facility] HEMATOLOGY PT 15.8 12.0 - 14.7 05/01/2019 [facility] HEMATOLOGY INR 1.29 0.85 - 1.17 05/01/2019 [facility] HEMATOLOGY PTT 52.6 22.9 - 35.8 05/01/2019 [facility] CHEM PANEL Glucose Lvl 73 70 - 99 04/30/2019 [facility] CHEM PANEL BUN 25 7 - 22 04/30/2019 [facility] CHEM PANEL Creatinine Lvl 0.88 0.50 - 1.40 04/30/2019 [facility] CHEM PANEL Sodium Lvl 139 135 - 145 04/30/2019 [facility] CHEM PANEL Potassium Lvl 3.7 3.5 - 5.1 04/30/2019 [facility] CHEM PANEL Chloride Lvl 104 95 - 109 04/30/2019 [facility] CHEM PANEL CO2 28 24 - 32 04/30/2019 [facility] CHEM PANEL Calcium Lvl 8.6 8.5 - 10.5 04/30/2019 [facility] CHEM PANEL eGFR 65 04/30/2019 Result Comment: [...] should be multiplied by the estimated BMI. [facility] CHEM PANEL AGAP 10.7 10.0 - 20.0 04/30/2019 [facility] CHEM PANEL Magnesium Lvl 1.9 1.8 - 2.4 04/30/2019 [facility] HEMATOLOGY WBC 4.6 3.7 - 10.4 04/30/2019 [facility] HEMATOLOGY RBC 3.29 4.20 - 5.40 04/30/2019 [facility] HEMATOLOGY Hgb 7.5 12.0 - 16.0 04/30/2019 [facility] HEMATOLOGY Hct 23.5 36.0 - 48.0 04/30/2019 [facility] HEMATOLOGY MCV 71.2 80.0 - 98.0 04/30/2019 [facility] HEMATOLOGY MCH 22.8 27.0 - 31.0 04/30/2019 [facility] HEMATOLOGY MCHC 32.1 32.0 - 36.0 04/30/2019 [facility] HEMATOLOGY RDW 20.3 11.5 - 14.5 04/30/2019 [facility] HEMATOLOGY Platelet 116 133 - 450 04/30/2019 [facility] HEMATOLOGY MPV 9.2 7.4 - 10.4 04/30/2019 [facility] HEMATOLOGY PT 15.8 12.0 - 14.7 04/30/2019 [facility] HEMATOLOGY INR 1.29 0.85 - 1.17 04/30/2019 [facility] HEMATOLOGY PTT 50.1 22.9 - 35.8 04/30/2019 [facility] HEMATOLOGY Segs 58.9 45.0 - 75.0 04/30/2019 [facility] HEMATOLOGY Lymphocytes 28.1 20.0 - 40.0 04/30/2019 [facility] HEMATOLOGY Monocytes 7.3 2.0 - 12.0 04/30/2019 [facility] HEMATOLOGY Eosinophils 5.2 0.0 - 4.0 04/30/2019 [facility] HEMATOLOGY Basophils 0.5 0.0 - 1.0 04/30/2019 [facility] HEMATOLOGY Neutrophils # 2.7 1.5 - 8.1 04/30/2019 [facility] HEMATOLOGY Lymphocytes # 1.3 1.0 - 5.5 04/30/2019 [facility] HEMATOLOGY Monocytes # 0.3 0.0 - 0.8 04/30/2019 [facility] HEMATOLOGY Eosinophils # 0.2 0.0 - 0.5 04/30/2019 [facility] HEMATOLOGY Microcyte 2+ *ABN* (04/30/19 5:18 PM) None Seen 04/30/2019 [facility] PARATHYROID PROFILE Ca Ion WB 1.03 1.05 - 1.25 04/30/2019 [facility] PARATHYROID PROFILE Ca Norm WB 1.03 1.05 - 1.25 04/30/2019 [facility] BLOOD BANK RESULTS ABO/Rh O NEG 04/30/2019 [facility] BLOOD BANK RESULTS Antibody Scrn Negative (04/30/19 10:01 AM) 04/30/2019 [facility] CARDIAC ENZYMES BNP 152 <=100 pg/mL 04/30/2019 [facility] CHEM PANEL Magnesium Lvl 2.3 1.8 - 2.4 04/30/2019 [facility] ELECTROLYTES AGAP 13.9 10.0 - 20.0 04/30/2019 [facility] ELECTROLYTES B/C Ratio 31 6 - 25 04/30/2019 [facility] ELECTROLYTES Globulin 4.0 2.7 - 4.2 04/30/2019 [facility] ELECTROLYTES A/G Ratio 1.0 0.7 - 1.6 04/30/2019 [facility] ELECTROLYTES Glucose Lvl 69 70 - 99 04/30/2019 [facility] ELECTROLYTES BUN 30 7 - 22 04/30/2019 [facility] ELECTROLYTES Creatinine Lvl 0.9 7 0.50 - 1.40 04/30/2019 [facility] ELECTROLYTES Sodium Lvl 140 135 - 145 04/30/2019 [facility] ELECTROLYTES Potassium Lvl 3.9 3.5 - 5.1 04/30/2019 [facility] ELECTROLYTES Chloride Lvl 101 95 - 109 04/30/2019 [facility] ELECTROLYTES CO2 29 24 - 32 04/30/2019 [facility] ELECTROLYTES Calcium Lvl 9.8 8.5 - 10.5 04/30/2019 [facility] ELECTROLYTES eGFR 58 04/30/2019 Result Comment: The [...] should be multiplied by the estimated BMI. [facility] ELECTROLYTES ALT 21 0 - 65 04/30/2019 [facility] ELECTROLYTES Albumin Lvl 4.2 3.5 - 5.0 04/30/2019 [facility] ELECTROLYTES Alk Phos 91 39 - 136 04/30/2019 [facility] ELECTROLYTES Bili Total 0.8 0.2 - 1.3 04/30/2019 [facility] ELECTROLYTES Total Protein 8.2 6.4 - 8.4 04/30/2019 [facility] ELECTROLYTES AST 29 0 - 37 04/30/2019 [facility] HEMATOLOGY WBC 5.8 3.7 - 10.4 04/30/2019 [facility] HEMATOLOGY RBC 4.00 4.20 - 5.40 04/30/2019 [facility] HEMATOLOGY Hgb 9.1 12.0 - 16.0 04/30/2019 [facility] HEMATOLOGY Hct 28.5 36.0 - 48.0 04/30/2019 [facility] HEMATOLOGY MCV 71.2 80.0 - 98.0 04/30/2019 [facility] HEMATOLOGY MCH 22.7 27.0 - 31.0 04/30/2019 [facility] HEMATOLOGY MCHC 31.9 32.0 - 36.0 04/30/2019 [facility] HEMATOLOGY RDW 20.6 11.5 - 14.5 04/30/2019 [facility] HEMATOLOGY Platelet 151 133 - 450 04/30/2019 [facility] HEMATOLOGY MPV 9.0 7.4 - 10.4 04/30/2019 [facility] HEMATOLOGY PT 14.4 12.0 - 14.7 04/30/2019 [facility] HEMATOLOGY PTT 47.4 22.9 - 35.8 04/30/2019 [facility] HEMATOLOGY INR 1.14 0.85 - 1.17 04/30/2019 [facility] HEMATOLOGY Segs 70.3 45.0 - 75.0 04/30/2019 [facility] HEMATOLOGY Lymphocytes 20.3 20.0 - 40.0 04/30/2019 [facility] HEMATOLOGY Monocytes 8.0 2.0 - 12.0 04/30/2019 [facility] HEMATOLOGY Eosinophils 0.9 0.0 - 4.0 04/30/2019 [facility] HEMATOLOGY Basophils 0.5 0.0 - 1.0 04/30/2019 [facility] HEMATOLOGY Neutrophils # 4.1 1.5 - 8.1 04/30/2019 [facility] HEMATOLOGY Lymphocytes # 1.2 1.0 - 5.5 04/30/2019 [facility] HEMATOLOGY Monocytes # 0.5 0.0 - 0.8 04/30/2019 [facility] HEMATOLOGY Eosinophils # 0.1 0.0 - 0.5 04/30/2019 [facility] HEMATOLOGY Microcyte 2+ *ABN* (04/30/19 10:01 AM) None Seen 04/30/2019 [facility] URINE AND STOOL UA Color Yellow *NA* (04/30/19 10:01 AM) Yellow 04/30/2019 [facility] URINE AND STOOL UA Turbidity Clear (04/30/19 10:01 AM) Clear 04/30/2019 [facility] URINE AND STOOL UA Spec Grav 1.018 <=1.030 04/30/2019 [facility] URINE AND STOOL UA pH 8.0 5.0 - 8.0 04/30/2019 [facility] URINE AND STOOL UA Protein 30 mg/dL Negative mg/dL 04/30/2019 [facility] URINE AND STOOL UA Glucose Negative mg/dL Negative mg/dL 04/30/2019 [facility] URINE AND STOOL UA Ketones Negative mg/dL Negative mg/dL 04/30/2019 [facility] URINE AND STOOL UA Bili Negative *NA* (04/30/19 10:01 AM) Negative 04/30/2019 [facility] URINE AND STOOL UA Blood Negative (04/30/19 10:01 AM) Negative 04/30/2019 [facility] URINE AND STOOL UA Urobilinogen 4.0 0.1 - 1.0 04/30/2019 [facility] URINE AND STOOL UA Nitrite Negative (04/30/19 10:01 AM) Negative 04/30/2019 [facility] URINE AND STOOL UA Leuk Est Negative (04/30/19 10:01 AM) Negative 04/30/2019 [facility] URINE AND STOOL UA Sq Epi Occasional /LPF Few /LPF 04/30/2019 [facility] BLOOD BANK RESULTS RBC product Product available (04/30/19 9:56 AM) 04/30/2019 [facility] BLOOD BANK RESULTS FFP product Product available (04/30/19 9:56 AM) 04/30/2019 [facility] CHEM PANEL POC Creatinine 0.9 0.5 - 1.4 04/10/2019 [facility] CHEM PANEL eGFR 64 04/10/2019 Result Comment: [...] should be multiplied by the estimated BMI. [facility] HEMATOLOGY PT 16.2 12.0 - 14.7 03/04/2019 [facility] HEMATOLOGY INR 1.33 0.85 - 1.17 03/04/2019 [facility] HEMATOLOGY PTT 54.3 22.9 - 35.8 03/04/2019 [facility] CARDIAC ENZYMES Troponin-I <0.02 0.00 - 0.40 01/30/2019 [facility] ELECTROLYTES AGAP 11.6 10.0 - 20.0 01/30/2019 [facility] ELECTROLYTES B/C Ratio 27 6 - 25 01/30/2019 [facility] ELECTROLYTES Globulin 4.0 2.7 - 4.2 01/30/2019 [facility] ELECTROLYTES A/G Ratio 1.0 0.7 - 1.6 01/30/2019 [facility] ELECTROLYTES Glucose Lvl 99 70 - 99 01/30/2019 [facility] ELECTROLYTES BUN 30 7 - 22 01/30/2019 [facility] ELECTROLYTES Creatinine Lvl 1.1 0 0.50 - 1.40 01/30/2019 [facility] ELECTROLYTES Sodium Lvl 141 135 - 145 01/30/2019 [facility] ELECTROLYTES Potassium Lvl 4.6 3.5 - 5.1 01/30/2019 [facility] ELECTROLYTES Chloride Lvl 107 95 - 109 01/30/2019 [facility] ELECTROLYTES CO2 27 24 - 32 01/30/2019 [facility] ELECTROLYTES Calcium Lvl 9.2 8.5 - 10.5 01/30/2019 [facility] ELECTROLYTES Total Protein 7.9 6.4 - 8.4 01/30/2019 [facility] ELECTROLYTES Albumin Lvl 3.9 3.5 - 5.0 01/30/2019 [facility] ELECTROLYTES ALT 18 0 - 65 01/30/2019 [facility] ELECTROLYTES AST 20 0 - 37 01/30/2019 [facility] ELECTROLYTES Alk Phos 91 39 - 136 01/30/2019 [facility] ELECTROLYTES Bili Total 0.7 0.2 - 1.3 01/30/2019 [facility] ELECTROLYTES eGFR 50 01/30/2019 Result Comment: The [...] should be multiplied by the estimated BMI. [facility] HEMATOLOGY WBC 6.1 3.7 - 10.4 01/30/2019 [facility] HEMATOLOGY RBC 3.92 4.20 - 5.40 01/30/2019 [facility] Hgb 8.5 12.0 - 16.0 01/30/2019 [facility] Hct 26.9 36.0 - 48.0 01/30/2019 [facility] MCV 68.7 80.0 - 98.0 01/30/2019 [facility] MCH 21.6 27.0 - 31.0 01/30/2019 [facility] MCHC 31.5 32.0 - 36.0 01/30/2019 [facility] RDW 19.6 11.5 - 14.5 01/30/2019 [facility] Platelet 148 133 - 450 01/30/2019 [facility] MPV 9.2 7.4 - 10.4 01/30/2019 [facility] PT 22.0 12.0 - 14.7 01/30/2019 [facility] INR 1.97 0.85 - 1.17 01/30/2019 [facility] PTT 49.6 22.9 - 35.8 01/30/2019 [facility] Plt Morph Emma l (01/30/19 3:17 PM) Normal 01/30/2019 [facility] Segs 77.0 45.0 - 75.0 01/30/2019 [facility] Lymphocytes 16.0 20.0 - 40.0 01/30/2019 [facility] Monocytes 5.6 2.0 - 12.0 01/30/2019 [facility] Eosinophils 0.9 0.0 - 4.0 01/30/2019 [facility] Basophils 0.5 0.0 - 1.0 01/30/2019 [facility] Neutrophils # 4.7 1.5 - 8.1 01/30/2019 [facility] Lymphocytes # 1.0 1.0 - 5.5 01/30/2019 [facility] Monocytes # 0.3 0.0 - 0.8 01/30/2019 [facility] Eosinophils # 0.1 0.0 - 0.5 01/30/2019 [facility] Anisocyte 1+ *ABN* (01/30/19 3:17 PM) None Seen 01/30/2019 [facility] Microcyte 3+ *NA* (01/30/19 3:17 PM) None Seen 01/30/2019 [facility] Hypochrom 1+ (01/30/19 3:17 PM) None Seen 01/30/2019 [facility] URINE AND STOOL UA Color Yellow *NA* (01/30/19 3:17 PM) Yellow 01/30/2019 [facility] URINE AND STOOL UA Turbidity Clear (01/30/19 3:17 PM) Clear 01/30/2019 [facility] URINE AND STOOL UA Spec Grav 1.018 <=1.030 01/30/2019 [facility] URINE AND STOOL UA pH 6.0 5.0 - 8.0 01/30/2019 [facility] URINE AND STOOL UA Protein 30 mg/dL Negative mg/dL 01/30/2019 [facility] URINE AND STOOL UA Glucose Negative mg/dL Negative mg/dL 01/30/2019 [facility] URINE AND STOOL UA Ketones Negative mg/dL Negative mg/dL 01/30/2019 [facility] URINE AND STOOL UA Bili Negative *NA* (01/30/19 3:17 PM) Negative 01/30/2019 [facility] URINE AND STOOL UA Blood Negative (01/30/19 3:17 PM) Negative 01/30/2019 [facility] URINE AND STOOL UA Nitrite Negative (01/30/19 3:17 PM) Negative 01/30/2019 [facility] URINE AND STOOL UA Leuk Est Negative (01/30/19 3:17 PM) Negative 01/30/2019 [facility] URINE AND STOOL UA Sq Epi Moderate /LPF Few /LPF 01/30/2019 [facility] URINE AND STOOL UA WBC <1 0 - 5 01/30/2019 [facility] URINE AND STOOL UA RBC 1 0 - 2 01/30/2019 [facility] URINE AND STOOL UA Bacteria Occasional /HPF None Seen /HPF 01/30/2019 [facility] URINE AND STOOL UA Mucus Few /LPF None Seen /LPF 01/30/2019 [facility] URINE AND STOOL UA Hyal Cast 1 0 - 2 01/30/2019 [facility] URINE AND STOOL UA Urobilinogen <=1.0 mg/dL 0.1 - 1.0 01/30/2019 [facility] HEMATOLOGY PT 23.6 12.0 - 14.7 02/26/2018 [facility] HEMATOLOGY INR 2.08 0.85 - 1.17 02/26/2018 [facility] CHEM PANEL Magnesium Lvl 2.1 1.8 - 2.4 02/26/2018 [facility] ELECTROLYTES AGAP 16.9 10.0 - 20.0 02/26/2018 [facility] ELECTROLYTES B/C Ratio 30 6 - 25 02/26/2018 [facility] ELECTROLYTES Globulin 4.2 2.7 - 4.2 02/26/2018 [facility] ELECTROLYTES A/G Ratio 0.9 0.7 - 1.6 02/26/2018 [facility] ELECTROLYTES eGFR 62 02/26/2018 Result Comment: The [...] should be multiplied by the estimated BMI. [facility] ELECTROLYTES AST 24 0 - 37 02/26/2018 [facility] ELECTROLYTES Alk Phos 115 39 - 136 02/26/2018 [facility] ELECTROLYTES Bili Total 0.5 0.2 - 1.3 02/26/2018 [facility] ELECTROLYTES CO2 27 24 - 32 02/26/2018 [facility] ELECTROLYTES Calcium Lvl 8.9 8.5 - 10.5 02/26/2018 [facility] ELECTROLYTES Total Protein 7.8 6.4 - 8.4 02/26/2018 [facility] ELECTROLYTES Albumin Lvl 3.6 3.5 - 5.0 02/26/2018 [facility] ELECTROLYTES ALT 23 0 - 65 02/26/2018 [facility] ELECTROLYTES BUN 28 7 - 22 02/26/2018 [facility] ELECTROLYTES Creatinine Lvl 0.9 3 0.50 - 1.40 02/26/2018 [facility] ELECTROLYTES Sodium Lvl 143 135 - 145 02/26/2018 [facility] ELECTROLYTES Potassium Lvl 3.9 3.5 - 5.1 02/26/2018 [facility] ELECTROLYTES Chloride Lvl 103 95 - 109 02/26/2018 [facility] ELECTROLYTES Glucose Lvl 182 70 - 99 02/26/2018 [facility] HEMATOLOGY MCH 25.2 27.0 - 31.0 02/26/2018 [facility] HEMATOLOGY MCHC 32.9 32.0 - 36.0 02/26/2018 [facility] HEMATOLOGY RDW 16.6 11.5 - 14.5 02/26/2018 [facility] HEMATOLOGY Platelet 132 133 - 450 02/26/2018 [facility] HEMATOLOGY MCV 76.7 80.0 - 98.0 02/26/2018 [facility] HEMATOLOGY MPV 9.2 7.4 - 10.4 02/26/2018 [facility] HEMATOLOGY WBC 5.7 3.7 - 10.4 02/26/2018 [facility] HEMATOLOGY Hgb 10.3 12.0 - 16.0 02/26/2018 [facility] HEMATOLOGY RBC 4.09 4.20 - 5.40 02/26/2018 [facility] HEMATOLOGY Hct 31.4 36.0 - 48.0 02/26/2018 [facility] HEMATOLOGY Eosinophils # 0.2 0.0 - 0.5 02/26/2018 [facility] HEMATOLOGY Microcyte 1+ *ABN* (02/26/18 3:29 AM) None Seen 02/26/2018 [facility] HEMATOLOGY Segs 60.1 45.0 - 75.0 02/26/2018 [facility] HEMATOLOGY Lymphocytes 29.8 20.0 - 40.0 02/26/2018 [facility] HEMATOLOGY Monocytes # 0.4 0.0 - 0.8 02/26/2018 [facility] HEMATOLOGY Eosinophils 3.3 0.0 - 4.0 02/26/2018 [facility] HEMATOLOGY Basophils 0.6 0.0 - 1.0 02/26/2018 [facility] HEMATOLOGY Neutrophils # 3.4 1.5 - 8.1 02/26/2018 [facility] HEMATOLOGY Lymphocytes # 1.7 1.0 - 5.5 02/26/2018 [facility] HEMATOLOGY Monocytes 6.2 2.0 - 12.0 02/26/2018 [facility] LIPIDS VLDL 29 02/26/2018 [facility] LIPIDS LDL (Calculated) 35 <=99 mg/dL 02/26/2018 [facility] LIPIDS Chol 97 <=199 mg/dL 02/26/2018 [facility] LIPIDS HDL 33 >=61 mg/dL 02/26/2018 [facility] LIPIDS Trig 144 <=149 mg/dL 02/26/2018 [facility] LIPIDS CHD Risk 2.94 3.90 - 5.80 02/26/2018 [facility] SPECIAL CHEMISTRY Hgb A1C 8.6 <=5.6 % 02/26/2018 [facility] TOXICOLOGY Digoxin Lvl 0.9 0.8 - 2.0 02/26/2018 [facility] URINE AND STOOL UA RBC 1 0 - 2 02/26/2018 [facility] URINE AND STOOL UA WBC 1 0 - 5 02/26/2018 [facility] URINE AND STOOL UA Hyal Cast 1 0 - 2 02/26/2018 [facility] URINE AND STOOL UA Bacteria Occasional /HPF None Seen /HPF 02/26/2018 [facility] URINE AND STOOL UA Urobilinogen 2.0 0.1 - 1.0 02/26/2018 [facility] URINE AND STOOL UA Ketones Negative mg/dL Negative mg/dL 02/26/[address] [facility] [address] URINE AND STOOL UA Protein Negative mg/dL Negative mg/dL 02/26/[address] [facility] [address] URINE AND STOOL UA Glucose Negative mg/dL Negative mg/dL 02/26/[address] [facility] [address] URINE AND STOOL UA Blood Negative (02/25/18 7:25 PM) Negative 02/26/2018 [facility] URINE AND STOOL UA Bili Negative *NA* (02/25/18 7:25 PM) Negative 02/26/2018 [facility] URINE AND STOOL UA Sq Epi Occasional /LPF Few /LPF 02/26/2018 [facility] URINE AND STOOL UA Nitrite Negative (02/25/18 7:25 PM) Negative 02/26/2018 [facility] URINE AND STOOL UA Leuk Est Negative (02/25/18 7:25 PM) Negative 02/26/2018 [facility] URINE AND STOOL UA pH 5.0 5.0 - 8.0 02/26/2018 [facility] URINE AND STOOL UA Color Yellow *NA* (02/25/18 7:25 PM) Yellow 02/26/2018 [facility] URINE AND STOOL UA Turbidity Clear (02/25/18 7:25 PM) Clear 02/26/2018 [facility] URINE AND STOOL UA Spec Grav 1.019 <=1.030 02/26/2018 [facility] CARDIAC ENZYMES BNP 92 <=100 pg/mL 02/25/2018 [facility] CARDIAC ENZYMES Troponin-I 0.03 0.00 - 0.40 02/25/2018 [facility] CARDIAC ENZYMES Total CK 58 12 - 191 02/25/2018 [facility] CHEM PANEL eGFR 53 02/25/2018 Result Comment: [...] Sodium Lvl 141 135 - 145 02/25/2018 [facility] CHEM PANEL Chloride Lvl 102 95 - 109 02/25/2018 [facility] CHEM PANEL AGAP 18.5 10.0 - 20.0 02/25/2018 [facility] CHEM PANEL B/C Ratio 23 6 - 25 02/25/2018 [facility] CHEM PANEL A/G Ratio 0.9 0.7 - 1.6 02/25/2018 [facility] CHEM PANEL Globulin 4.3 2.7 - 4.2 02/25/2018 [facility] HEMATOLOGY Basophils 0.6 0.0 - 1.0 02/25/2018 [facility] HEMATOLOGY Neutrophils # 4.5 1.5 - 8.1 02/25/2018 [facility] HEMATOLOGY Monocytes 5.5 2.0 - 12.0 02/25/2018 [facility] HEMATOLOGY Lymphocytes 16.2 20.0 - 40.0 02/25/2018 [facility] HEMATOLOGY Eosinophils 1.1 0.0 - 4.0 02/25/2018 [facility] HEMATOLOGY Eosinophils # 0.1 0.0 - 0.5 02/25/2018 [facility] HEMATOLOGY Monocytes # 0.3 0.0 - 0.8 02/25/2018 [facility] Lymphocytes # 0.9 1.0 - 5.5 02/25/2018 [facility] Microcyte 1+ *ABN* (02/25/18 1:36 PM) None Seen 02/25/2018 [facility] Segs 76.6 45.0 - 75.0 02/25/2018 [facility] PTT 44.1 22.9 - 35.8 02/25/2018 [facility] MPV 8.9 7.4 - 10.4 02/25/2018 [facility] WBC 5.8 3.7 - 10.4 02/25/2018 [facility] RBC 4.25 4.20 - 5.40 02/25/2018 [facility] MCHC 32.3 32.0 - 36.0 02/25/2018 [facility] RDW 17.0 11.5 - 14.5 02/25/2018 [facility] Platelet 148 133 - 450 02/25/2018 [facility] Hct 32.5 36.0 - 48.0 02/25/2018 [facility] Hgb 10.5 12.0 - 16.0 02/25/2018 [facility] MCV 76.6 80.0 - 98.0 02/25/2018 [facility] MCH 24.7 27.0 - 31.0 02/25/2018 [facility] INR 2.05 0.85 - 1.17 02/25/2018 [facility] PT 23.3 12.0 - 14.7 02/25/2018 [facility] CHEM PANEL eGFR 51 12/01/2014 <sup>1</sup>Result Comment: [...] should be multiplied by the estimated BMI. [facility] CHEM PANEL BUN 31 7 - 22 12/01/2014 [facility] CHEM PANEL Creatinine Lvl 1.1 0.5 - 1.4 12/01/2014 [facility] CHEM PANEL CO2 25 24 - 32 12/01/2014 [facility] CHEM PANEL Calcium Lvl 8.6 8.5 - 10.5 12/01/2014 [facility] CHEM PANEL Glucose Lvl 135 70 - 99 12/01/2014 <sup>4</sup>Interpretive Data: Adult ref erence range values reflect the clinical guidelines
of the [place] [employer]. [facility] CHEM PANEL Potassium Lvl 3.8 3.5 - 5.1 12/01/2014 [facility] CHEM PANEL Chloride Lvl 99 95 - 109 12/01/2014 [facility] CHEM PANEL Sodium Lvl 134 135 - 145 12/01/2014 [facility] CHEM PANEL AGAP 13.8 10.0 - 20.0 12/01/2014 [facility] Monocytes # 0.5 0.0 - 0.8 12/01/2014 [facility] HEMATOLOGY Eosinophils # 0.2 0.0 - 0.5 12/01/2014 [facility] Lymphocytes 25.5 20.0 - 40.0 12/01/2014 [facility] Monocytes 8.0 2.0 - 12.0 12/01/2014 [facility] HEMATOLOGY Segs 63.1 45.0 - 75.0 12/01/2014 [facility] Eosinophils 3.1 0.0 - 4.0 12/01/2014 [facility] Microcyte 1+ *ABN* (12/01/14 3:40 AM) None Seen 12/01/2014 [facility] HEMATOLOGY Segs-Bands # 4.0 1.5 - 8.1 12/01/2014 [facility] HEMATOLOGY Basophils 0.3 0.0 - 1.0 12/01/2014 [facility] Lymphocytes # 1.6 1.0 - 5.5 12/01/2014 [facility] HEMATOLOGY PT 29.4 12.0 - 14.7 12/01/2014 [facility] INR 2.68 0.85 - 1.17 12/01/2014 <sup>9</sup>Interpretive Data: RECOMMEND ED RANGES FOR PROTIME INR:
2.0-3.0 for most medical and surgical thromboembolic states.
2.5-3.5 for artificial heart valves and recurrent embolism.

INR SHOULD BE USED ONLY FOR PATIENTS ON STABLE ANTICOAGULANT THERAPY. [facility] Platelet 141 133 - 450 12/01/2014 [facility] MPV 8.8 7.4 - 10.4 12/01/2014 [facility] Hct 28.5 36.0 - 48.0 12/01/2014 [facility] MCHC 33.3 32.0 - 36.0 12/01/2014 [facility] RDW 17.9 11.5 - 14.5 12/01/2014 [facility] MCV 75.7 80.0 - 98.0 12/01/2014 [facility] MCH 25.2 27.0 - 31.0 12/01/2014 [facility] WBC 6.4 3.7 - 10.4 12/01/2014 [facility] RBC 3.76 4.20 - 5.40 12/01/2014 [facility] Hgb 9.5 12.0 - 16.0 12/01/2014 [facility] ELECTROLYTES Sodium Lvl 138 135 - 145 11/30/2014 [facility] ELECTROLYTES Potassium Lvl 3.8 3.5 - 5.1 11/30/2014 [facility] ELECTROLYTES Chloride Lvl 101 95 - 109 11/30/2014 [facility] ELECTROLYTES eGFR 51 11/30/2014 <sup>2</sup>Result Comment: The [...] should be multiplied by the estimated BMI. [facility] ELECTROLYTES Bili Total 0.6 0.2 - 1.3 11/30/2014 [facility] ELECTROLYTES Glucose Lvl 118 70 - 99 11/30/2014 <sup>5</sup>Interpretive Data: Adult ref erence range values reflect the clinical guidelines
of the [place] [employer]. [facility] ELECTROLYTES BUN 28 7 - 22 11/30/2014 [facility] ELECTROLYTES Albumin Lvl 3.1 3.5 - 5.0 11/30/2014 [facility] ELECTROLYTES ALT 31 0 - 65 11/30/2014 [facility] ELECTROLYTES AST 38 0 - 37 11/30/2014 [facility] ELECTROLYTES Calcium Lvl 8.6 8.5 - 10.5 11/30/2014 [facility] ELECTROLYTES Total Protein 7.4 6.4 - 8.4 11/30/2014 [facility] ELECTROLYTES Alk Phos 74 39 - 136 11/30/2014 [facility] ELECTROLYTES Creatinine Lvl 1.1 0.5 - 1.4 11/30/2014 [facility] ELECTROLYTES CO2 27 24 - 32 11/30/2014 [facility] ELECTROLYTES A/G Ratio 0.7 0.7 - 1.6 11/30/2014 [facility] ELECTROLYTES Globulin 4.3 2.0 - 4.0 11/30/2014 [facility] ELECTROLYTES AGAP 13.8 10.0 - 20.0 11/30/2014 [facility] ELECTROLYTES B/C Ratio 25 6 - 25 11/30/2014 [facility] HEMATOLOGY Eosinophils 3.1 0.0 - 4.0 11/30/2014 [facility] HEMATOLOGY Monocytes 11.3 2.0 - 12.0 11/30/2014 [facility] HEMATOLOGY Lymphocytes 23.3 20.0 - 40.0 11/30/2014 [facility] HEMATOLOGY Segs 61.9 45.0 - 75.0 11/30/2014 [facility] HEMATOLOGY Microcyte 1+ *ABN* (11/30/14 4:14 AM) None Seen 11/30/2014 [facility] HEMATOLOGY Eosinophils # 0.2 0.0 - 0.5 11/30/2014 [facility] HEMATOLOGY Basophils 0.4 0.0 - 1.0 11/30/2014 [facility] HEMATOLOGY Segs-Bands # 3.5 1.5 - 8.1 11/30/2014 [facility] Lymphocytes # 1.3 1.0 - 5.5 11/30/2014 [facility] HEMATOLOGY Monocytes # 0.6 0.0 - 0.8 11/30/2014 [facility] HEMATOLOGY RDW 17.9 11.5 - 14.5 11/30/2014 [facility] MCHC 33.2 32.0 - 36.0 11/30/2014 [facility] MCV 76.2 80.0 - 98.0 11/30/2014 [facility] MCH 25.3 27.0 - 31.0 11/30/2014 [facility] Hct 31.3 36.0 - 48.0 11/30/2014 [facility] MPV 9.0 7.4 - 10.4 11/30/2014 [facility] Platelet 126 133 - 450 11/30/2014 [facility] RBC 4.11 4.20 - 5.40 11/30/2014 [facility] Hgb 10.4 12.0 - 16.0 11/30/2014 [facility] WBC 5.7 3.7 - 10.4 11/30/2014 [facility] INR 2.52 0.85 - 1.17 11/30/2014 <sup>10</sup>Interpretive Data: RECOMMEN DED RANGES FOR PROTIME INR:
2.0-3.0 for most medical and surgical thromboembolic states.
2.5-3.5 for artificial heart valves and recurrent embolism.

INR SHOULD BE USED ONLY FOR PATIENTS ON STABLE ANTICOAGULANT THERAPY. [facility] HEMATOLOGY PT 28.0 12.0 - 14.7 11/30/2014 [facility] SPECIAL CHEMISTRY Hgb A1C 7.6 <=5.6 % 11/30/2014 [facility] CHEM PANEL Procalcitonin Lvl 0.25 0.00 - 0.10 11/29/2014 [facility] INR 2.48 0.85 - 1.17 11/29/2014 <sup>11</sup>Interpretive Data: RECOMMEN DED RANGES FOR PROTIME INR:
2.0-3.0 for most medical and surgical thromboembolic states.
2.5-3.5 for artificial heart valves and recurrent embolism.

INR SHOULD BE USED ONLY FOR PATIENTS ON STABLE ANTICOAGULANT THERAPY. [facility] HEMATOLOGY PT 27.6 12.0 - 14.7 11/29/2014 [facility] CARDIAC ENZYMES Troponin-I 0.03 0.00 - 0.40 11/29/2014 [facility] CARDIAC ENZYMES Total CK 300 12 - 191 11/29/2014 [facility] CARDIAC ENZYMES CK MB Index 0.3 0.0 - 2.5 11/29/2014 [facility] CARDIAC ENZYMES CK MB 1.0 0.5 - 3.6 11/29/2014 [facility] CARDIAC ENZYMES Troponin-I 0.04 0.00 - 0.40 11/29/2014 [facility] CARDIAC ENZYMES Total CK 278 12 - 191 11/29/2014 [facility] CARDIAC ENZYMES CK MB Index 0.4 0.0 - 2.5 11/29/2014 [facility] CARDIAC ENZYMES CK MB 1.2 0.5 - 3.6 11/29/2014 [facility] LIPIDS VLDL 21 11/29/2014 [facility] LIPIDS HDL 41 >=61 mg/dL 11/29/2014 [facility] LIPIDS LDL (Calculated) 27 <=99 mg/dL 11/29/2014 [facility] LIPIDS CHD Risk 2.17 3.90 - 5.80 11/29/2014 [facility] LIPIDS Trig 106 <=149 mg/dL 11/29/2014 [facility] LIPIDS Chol 89 <=199 mg/dL 11/29/2014 [facility] URINE AND STOOL UA Urobilinogen <=1.0 mg/dL 0.1 - 1.0 11/29/2014 [facility] URINE AND STOOL UA Color Ltyellow 11/29/2014 [facility] URINE AND STOOL UA Bili Negative *NA* (11/28/14 8:35 PM) Negative 11/29/2014 [facility] URINE AND STOOL UA Sq Epi Occasional /LPF Few /LPF 11/29/2014 [facility] URINE AND STOOL UA Nitrite Negative (11/28/14 8:35 PM) Negative 11/29/2014 [facility] URINE AND STOOL UA Leuk Est Trace *ABN* (11/28/14 8:35 PM) Negative 11/29/2014 [facility] URINE AND STOOL UA Blood Negative (11/28/14 8:35 PM) Negative 11/29/2014 [facility] URINE AND STOOL UA Bacteria Occasional /HPF None Seen /HPF 11/29/[address] [facility] [address] URINE AND STOOL UA Mucus Few /LPF None Seen /LPF 11/29/2014 [facility] URINE AND STOOL UA WBC <1 0 - 5 11/29/2014 [facility] URINE AND STOOL UA Glucose Negative mg/dL Negative mg/dL 11/29/[address] [facility] [address] URINE AND STOOL UA Ketones Negative mg/dL Negative mg/dL 11/29/[address] [facility] [address] URINE AND STOOL UA Protein Negative mg/dL Negative mg/dL 11/29/[address] [facility] [address] URINE AND STOOL UA Spec Grav 1.009 <=1.030 11/29/2014 [facility] URINE AND STOOL UA pH 5.0 5.0 - 8.0 11/29/2014 [facility] URINE AND STOOL UA Turbidity Clear (11/28/14 8:35 PM) Clear 11/29/2014 [facility] CARDIAC ENZYMES CK MB Index 0.3 0.0 - 2.5 11/29/2014 [facility] CARDIAC ENZYMES BNP 151 <=100 pg/mL 11/29/2014 <sup>8</sup>Interpretive Data: Elevated results are in line with increasing severity of
congestive heart failure. Minor elevations between 100 and 300
may be seen with Myocardial Ischemia, Sodium retaining drugs,
and compensated/treated heart failure. [facility] CARDIAC ENZYMES Troponin-I 0.05 0.00 - 0.40 11/29/2014 [facility] CARDIAC ENZYMES CK MB 0.6 0.5 - 3.6 11/29/2014 [facility] CARDIAC ENZYMES Total CK 207 12 - 191 11/29/2014 [facility] CHEM PANEL Phosphorus 2.9 2.5 - 4.5 11/29/2014 [facility] CHEM PANEL Magnesium Lvl 2.0 1.8 - 2.4 11/29/2014 [facility] HEMATOLOGY PTT 69.0 22.9 - 35.8 11/29/2014 <sup>12</sup>Interpretive Data: Heparin Therapeutic Range: 57 - 92 Seconds [facility] CHEM PANEL Lactic Acid Lvl 4.0 0.5 - 2.2 11/28/2014 <sup>7</sup>Result Comment: Critical Res ult(s) called to Mendy Plunkett at 11/28/2014 18:46 byDB. Read back OK. [facility] CHEM PANEL Total Protein 7.6 6.4 - 8.4 11/28/2014 [facility] CHEM PANEL ALT 25 0 - 65 11/28/2014 [facility] CHEM PANEL AST 30 0 - 37 11/28/2014 [facility] CHEM PANEL Alk Phos 72 39 - 136 11/28/2014 [facility] CHEM PANEL Bili Total 0.7 0.2 - 1.3 11/28/2014 [facility] CHEM PANEL BUN 25 7 - 22 11/28/2014 [facility] CHEM PANEL eGFR 42 11/28/2014 <sup>3</sup>Result Comment: [...] should be multiplied by the estimated BMI. [facility] CHEM PANEL Calcium Lvl 8.8 8.5 - 10.5 11/28/2014 [facility] CHEM PANEL Albumin Lvl 3.6 3.5 - 5.0 11/28/2014 [facility] CHEM PANEL Potassium Lvl 4.0 3.5 - 5.1 11/28/2014 [facility] CHEM PANEL Creatinine Lvl 1.3 0.5 - 1.4 11/28/2014 [facility] CHEM PANEL Chloride Lvl 99 95 - 109 11/28/2014 [facility] CHEM PANEL Sodium Lvl 134 135 - 145 11/28/2014 [facility] CHEM PANEL CO2 24 24 - 32 11/28/2014 [facility] CHEM PANEL Glucose Lvl 186 70 - 99 11/28/2014 <sup>6</sup>Interpretive Data: Adult ref erence range values reflect the clinical guidelines
of the [place] [employer]. [facility] CHEM PANEL Globulin 4.0 2.0 - 4.0 11/28/2014 [facility] CHEM PANEL B/C Ratio 19 6 - 25 11/28/2014 [facility] CHEM PANEL A/G Ratio 0.9 0.7 - 1.6 11/28/2014 [facility] CHEM PANEL AGAP 15.0 10.0 - 20.0 11/28/2014 [facility] HEMATOLOGY MCHC 33.5 32.0 - 36.0 11/28/2014 [facility] HEMATOLOGY RDW 18.1 11.5 - 14.5 11/28/2014 [facility] HEMATOLOGY MCH 25.6 27.0 - 31.0 11/28/2014 [facility] HEMATOLOGY Hct 29.0 36.0 - 48.0 11/28/2014 [facility] HEMATOLOGY RBC 3.80 4.20 - 5.40 11/28/2014 [facility] HEMATOLOGY Hgb 9.7 12.0 - 16.0 11/28/2014 [facility] HEMATOLOGY WBC 4.9 3.7 - 10.4 11/28/2014 [facility] HEMATOLOGY MCV 76.4 80.0 - 98.0 11/28/2014 [facility] HEMATOLOGY Platelet 123 133 - 450 11/28/2014 [facility] HEMATOLOGY MPV 9.4 7.4 - 10.4 11/28/2014 [facility] HEMATOLOGY Microcyte 1+ *ABN* (11/28/14 5:56 PM) None Seen 11/28/2014 [facility] HEMATOLOGY Monocytes # 0.5 0.0 - 0.8 11/28/2014 [facility] HEMATOLOGY Segs-Bands # 3.6 1.5 - 8.1 11/28/2014 [facility] HEMATOLOGY Basophils 0.4 0.0 - 1.0 11/28/2014 [facility] HEMATOLOGY Lymphocytes # 0.6 1.0 - 5.5 11/28/2014 [facility] HEMATOLOGY Lymphocytes 13.2 20.0 - 40.0 11/28/2014 [facility] HEMATOLOGY Segs 74.8 45.0 - 75.0 11/28/2014 [facility] HEMATOLOGY Eosinophils 0.5 0.0 - 4.0 11/28/2014 [facility] HEMATOLOGY Monocytes 11.1 2.0 - 12.0 11/28/2014 [facility] CHEMISTRY A/G Ratio 1.0 0.7 - 1.6 10/04/2012 Normal [facility] CHEMISTRY Globulin 4.2 2.0 - 4.0 10/04/2012 [facility] CHEMISTRY Albumin Lvl 4.1 3.5 - 5.0 10/04/2012 Normal [facility] CHEMISTRY Total Protein 8.3 6.4 - 8.4 10/04/2012 Normal [facility] CHEMISTRY Alk Phos 110 39 - 136 10/04/2012 Normal [facility] CHEMISTRY ALT 38 0 - 65 10/04/2012 Normal [facility] CHEMISTRY Bili Total 0.5 0.2 - 1.3 10/04/2012 Normal [facility] CHEMISTRY B/C Ratio 30 6 - 25 10/04/2012 [facility] CHEMISTRY AGAP 12.0 10.0 - 20.0 10/04/2012 Normal [facility] CHEMISTRY AST 30 0 - 37 10/04/2012 Normal [facility] CHEMISTRY Calcium Lvl 9.1 8.5 - 10.5 10/04/2012 Normal [facility] CHEMISTRY Creatinine Lvl 0.9 0.5 - 1.4 10/04/2012 Normal [facility] CHEMISTRY BUN 27 7 - 22 10/04/2012 [place] [facility] CHEMISTRY CO2 29 24 - 32 10/04/2012 Normal [facility] CHEMISTRY Glucose Lvl 134 70 - 99 10/04/2012 [facility] <sup>2</sup>Interpretive Data: Adult ref erence range values reflect the clinical guidelines
of the [place] [employer]. [facility] CHEMISTRY eGFR 66 10/04/2012 NA <sup>1</sup>Result Comment: [...] should be multiplied by the estimated BMI. [facility] CHEMISTRY Potassium Lvl 4.0 3.5 - 5.1 10/04/2012 Normal [facility] CHEMISTRY Sodium Lvl 141 135 - 145 10/04/2012 Normal [facility] CHEMISTRY Chloride Lvl 104 95 - 109 10/04/2012 Normal [facility] URINALYSIS UA Turbidity Clear (10/03/2012 20:34:00) Clear 10/04/2012 Normal [facility] URINALYSIS UA Color Yello w *NA* (10/03/2012 20:34:00) Yellow 10/04/2012 NA [facility] URINALYSIS UA pH 5.5 5.0 - 8.0 10/04/2012 Normal [facility] URINALYSIS UA Protein Negat kash mg/dL (10/03/2012 [...] (10/03/2012 20:34:00) None S een 10/04/2012 Normal [facility] URINALYSIS UA WBC 0-2 / HPF (10/03/2012 20:34:00) 0 - 5 10/04/2012 Normal [facility] URINALYSIS UA Sq Epi Few / LPF (10/03/2012 20:34:00) Few 10/04/2012 Normal [facility] URINALYSIS UA RBC None Seen (10/03/2012 20:34:00) 0 - 2 10/04/2012 Normal [facility] HEMATOLOGY MPV 8.5 7.4 - 10.4 10/04/2012 Normal [facility] HEMATOLOGY WBC 6.9 3.7 - 10.4 10/04/2012 Normal [facility] HEMATOLOGY Hct 33.4 36.0 - 48.0 10/04/2012 LOW [facility] HEMATOLOGY RBC 4.27 4.20 - 5.40 10/04/2012 Normal [facility] HEMATOLOGY Hgb 10.6 12.0 - 16.0 10/04/2012 LOW [facility] HEMATOLOGY MCH 24.9 27.0 - 31.0 10/04/2012 LOW [facility] HEMATOLOGY MCHC 31.8 32.0 - 36.0 10/04/2012 [facility] HEMATOLOGY MCV 78.3 81.0 - 99.0 10/04/2012 LOW [facility] HEMATOLOGY RDW 18.6 11.5 - 14.5 10/04/2012 [place] [facility] HEMATOLOGY Platelet 198 133 - 450 10/04/2012 Normal [facility] HEMATOLOGY Monocytes 5.5 2.0 - 12.0 10/04/2012 Normal [facility] HEMATOLOGY Segs 62.9 45.0 - 75.0 10/04/2012 Normal [facility] HEMATOLOGY Lymphocytes 28.9 20.0 - 40.0 10/04/2012 Normal [facility] HEMATOLOGY Segs-Bands # 4.3 1.5 - 8.1 10/04/2012 Normal [facility] HEMATOLOGY Lymphocytes # 2.0 1.0 - 5.5 10/04/2012 Normal [facility] HEMATOLOGY Eosinophils 2.2 0.0 - 4.0 10/04/2012 Normal [facility] HEMATOLOGY Basophils 0.5 0.0 - 1.0 10/04/2012 Normal [facility] HEMATOLOGY Basophils # 0.0 0.0 - 0.2 10/04/2012 Normal [facility] HEMATOLOGY Eosinophils # 0.1 0.0 - 0.5 10/04/2012 Normal [facility] HEMATOLOGY Monocytes # 0.4 0.0 - 0.8 10/04/2012 Normal [facility] HEMATOLOGY PT 14.2 12.0 - 14.7 10/04/2012 Normal [facility] HEMATOLOGY INR 1.08 0.85 - 1.17 10/04/2012 Normal <sup>3</sup>Interpretive Data: RECOMMEND ED RANGES FOR PROTIME INR:
2.0-3.0 for most medical and surgical thromboembolic states.
2.5-3.5 for artificial heart valves and recurrent embolism.

INR SHOULD BE USED ONLY FOR PATIENTS ON STABLE ANTICOAGULANT THERAPY. [facility] Pathology Reports No Data Provided for This [...] atelectasis. Marina Briscoe MD On 10/05/2019 13:01:59; [id number] 10/05/2019 [facility] [place] Sacrum/coccyx series DX PROCED URE INFORMATION: Exam: [...] sacrum/coccyx. Akash Ward MD On 10/05/2019 13:21:24; [id number] 10[facility]05[facility]2019 [facility] [place] [facility] 1[facility] DX PROCEDURE INFOR MATION: Exam: [...] edema. Arsalan Ceja MD On 07/06/2019 21:05:18; [id number] 07/06/2019 [facility] Chest 1view DX EXAM: XR CHEST 1 VIEW DATE: 04/30/2019 3:13 PM [employer]OUGHER HELPER INDICATION: Arrhythmias - s/p TAVR COMPARISON: Serial [...] with increase changes of pulmonary edema. 04/30/2019 [facility] Chest 1view DX EXAM: XR CHEST 1 VIEW DATE: 04/30/2019 9:56 ROUGHER HELPER INDICATION: Heart failure - pre TAVR. TECHNIQUE: Chest 1 view FINDINGS: Comparison is made to 01/30/2019. Cardiac silhouette is enlarged but unchanged. Stable postoperative findings. Aortic arch calcification. A left subclavian pacemaker remains in place. Mild bilateral lower lobe platelike atelectasis. The lungs are otherwise clear. No pleural effusions. IMPRESSION: Mild bilateral lower lobe platelike atelectasis. 04/30/2019 [facility] Heart/coronary art TAVR CTA EX AM: CTA HEART WITH CONTRAST DATE: 04/10/2019 11:33 [employer] HELPER INDICATION: - aortic stenosis. Aortic stenosis, TAVR candidate. COMPARISON: No prior CT heart available for comparison. TECHNIQUE: Contrast imaging was performed on a [employer] [address] scanner utilizing a single breath hold, at 780 mA and 100 kVp. Retrospective ECG gating was performed, at a heart rate of 60 bpm. Images were reformatted at 0.5 mm intervals and sent to the [employer] workstation for interpretation of both systolic and [...] 37.3 x 32.8 mm Coplanar TAVR angle: MEXICAN 2 CAU 11 Coronary Arteries: This patient [...] in conjunction with Dr. Aiden Bridges. 04/10/2019 [facility] Chest/Abd/Pelvis TAVR CTA EXAM : VIR CT [...] to characterize and statistically, are most likely access services representative of simple renal cysts. Multifocal areas [...] to 12 months to document stability. 04/10/2019 [facility] Chest 1view DX Chest 1view DX CLINICAL [...] acute abnormality is noted. SL: MCHAWLA-JAMISON 01/30/2019 [facility] Brain wo contrast CT Patient N alyssa: KAREN MENON : 1945; Age: 73 years y/o Female MR: [id number] Study: Brain wo contrast CT 01/30/2019 15:06 [...] of the brain should be considered. SL: [id number] 01/30/2019 [facility] wo contrast CT EXAM: CT BRAIN [...] may be performed for complete assessment. SL: [id number] 02/25/2018 [facility] Breast Mammo Scrn ASHLEY incl CAD MA BILATERAL DIGITAL SCREENING MAMMOGRAM WITH CAD: 05/14/2017 CLINICAL: /Screen. Current study was evaluated with a Computer Aided Detection (CAD) system. COMPARISON:Comparison is made to exams dated: 02/06/2011 mammogram, 04/12/2008 mammogram, 04/09/2007 mammogram, and 04/08/2006 mammogram - [facility]. TECHNIQUE: Mammographic views were obtained using digital acquisition. [employer] Version 1.3 was utilized for computer aided [...] is recommended.(05/15/2018) This exam was interpreted at [id number] for [facility] Breast [place]. Edita pratt/rosanna:05/14/2017 11:32:56 [employer] Operator(s): Tamera [facility] letter sent: BI-RADS 1/2 Mammogram BI-RADS: 2 Benign 05/14/2017 [facility] Chest 2 views DX PA and LATERA [...] . Coding: Chest 2 views CPT Code: 44748 SL: 12 Vishal Bhatia M.D. 11/28/2014 [facility] Abdomen/Pelvis wo contrast CT CT ABDOMEN AND [...] focal osseous lesion is appreciated. SL:14 10/03/2012 [facility] Consultation Notes No Data Provided for This Section Discharge Summaries No Data Provided for This Section History and Physicals No Data Provided for This Section Vital Signs Vital Sign Value Date Comments Source Temperature Oral (F) 97.6 F 07/07/2019 [facility] Heart Rate 58 07/07/2019 [facility] Respitory Rate 18 07/07/2019 [facility] Systolic (mm Hg) 155 07/07/2019 [facility] Diastolic (mm Hg) 69 07/07/2019 [facility] Heart Rate 64 07/07/2019 [facility] Respitory Rate 16 07/07/2019 [facility] Systolic (mm Hg) 157 07/07/2019 [facility] Diastolic (mm Hg) 85 07/07/2019 [facility] Temperature Oral (F) 97.7 F 07/07/2019 [facility] Heart Rate 59 07/07/2019 [facility] Respitory Rate 16 07/07/2019 [facility] Systolic (mm Hg) 132 07/07/2019 [facility] Diastolic (mm Hg) 76 07/07/2019 [facility] BMI Calculated 23.79 07/07/2019 [facility] Height 160.02 cm 07/07/2019 [facility] Weight 60.909 07/07/2019 [facility] BMI Calculated 23.79 07/07/2019 [facility] Temperature Oral (F) 98.0 F 07/07/2019 [facility] Height 160.02 cm 07/07/2019 [facility] BMI Calculated 23.79 07/07/2019 [facility] Weight 60.909 07/07/2019 [facility] Temperature Oral (F) 97.7 F 05/01/2019 [facility] Systolic (mm Hg) 168 05/01/2019 [facility] Diastolic (mm Hg) 72 05/01/2019 [facility] Systolic (mm Hg) 154 05/01/2019 [facility] Diastolic (mm Hg) 65 05/01/2019 [facility] Systolic (mm Hg) 134 05/01/2019 [facility] Diastolic (mm Hg) 66 05/01/2019 [facility] Temperature Oral (F) 98.0 F 05/01/2019 [facility] Respitory Rate 30 05/01/2019 [facility] Respitory Rate 19 05/01/2019 [facility] Temperature Oral (F) 98.1 F 05/01/2019 [facility] Respitory Rate 18 05/01/2019 [facility] Height 160.02 cm 04/30/2019 [facility] Weight 60.455 04/30/2019 [facility] BMI Calculated 23.61 04/30/2019 [facility] Heart Rate 63 04/10/2019 [facility] Respitory Rate 15 04/10/2019 [facility] Systolic (mm Hg) 113 04/10/2019 [facility] Diastolic (mm Hg) 60 04/10/2019 [facility] Heart Rate 60 04/10/2019 [facility] Respitory Rate 16 04/10/2019 [facility] Systolic (mm Hg) 129 04/10/2019 [facility] Diastolic (mm Hg) 67 04/10/2019 [facility] Height 162.56 cm 04/10/2019 [facility] Weight 61.364 04/10/2019 [facility] BMI Calculated 23.22 04/10/2019 [facility] Respitory Rate 20 03/04/2019 [facility] Systolic (mm Hg) 120 03/04/2019 [facility] Diastolic (mm Hg) 66 03/04/2019 [facility] Respitory Rate 20 03/04/2019 [facility] Systolic (mm Hg) 119 03/04/2019 [facility] Diastolic (mm Hg) 60 03/04/2019 [facility] Respitory Rate 19 03/04/2019 [facility] Systolic (mm Hg) 120 03/04/2019 [facility] Diastolic (mm Hg) 60 03/04/2019 [facility] Temperature Oral (F) 98.1 F 03/04/2019 [facility] Temperature Oral (F) 98.5 F 03/04/2019 [facility] Height 162.56 cm 03/04/2019 [facility] Weight 59.545 03/04/2019 [facility] BMI Calculated 22.53 03/04/2019 [facility] Temperature Oral (F) 98.4 F 01/30/2019 [facility] Heart Rate 65 01/30/2019 [facility] Respitory Rate 16 01/30/2019 [facility] Systolic (mm Hg) 112 01/30/2019 [facility] Diastolic (mm Hg) 72 01/30/2019 [facility] Systolic (mm Hg) 107 01/30/2019 [facility] Diastolic (mm Hg) 65 01/30/2019 [facility] Heart Rate 60 01/30/2019 [facility] Respitory Rate 17 01/30/2019 [facility] Temperature Oral (F) 98.2 F 01/30/2019 [facility] Height 162.56 cm 01/30/2019 [facility] BMI Calculated 24.6 01/30/2019 [facility] Weight 65 [...] Group Temperature Oral (F) 98.2 F 02/26/2018 [facility] Heart Rate 60 02/26/2018 [facility] Systolic (mm Hg) 108 02/26/2018 [facility] Diastolic (mm Hg) 58 02/26/2018 [facility] Respitory Rate 17 02/26/2018 [facility] Heart Rate 60 02/26/2018 [facility] Temperature Oral (F) 98.3 F 02/26/2018 [facility] Systolic (mm Hg) 114 02/26/2018 [facility] Diastolic (mm Hg) 53 02/26/2018 [facility] Respitory Rate 17 02/26/2018 [facility] Respitory Rate 17 02/26/2018 [facility] Heart Rate 60 02/26/2018 [facility] Systolic (mm Hg) 110 02/26/2018 [facility] Diastolic (mm Hg) 72 02/26/2018 [facility] Temperature Oral (F) 97.8 F 02/26/2018 [facility] Height 165.1 cm 02/26/2018 [facility] BMI Calculated 23.33 02/26/2018 [facility] Weight 63.6 02/26/2018 [facility] Weight 63.636 02/25/2018 [facility] BMI Calculated 24.85 02/25/2018 [facility] Height 160.02 cm 02/25/2018 [facility] BMI Calculated 25.58 01/01/2018 [facility] Weight [...] 06/21/2017 [facility] Heart Rate 60 12/01/2014 [facility] Respitory Rate 18 12/01/2014 [facility] Systolic (mm Hg) 97 12/01/2014 [facility] Diastolic (mm Hg) 59 12/01/2014 [facility] Temperature Oral (F) 97.7 F 12/01/2014 [facility] Temperature Oral (F) 98.5 F 12/01/2014 [facility] Systolic (mm Hg) 113 12/01/2014 [facility] Diastolic (mm Hg) 65 12/01/2014 [facility] Heart Rate 63 12/01/2014 [facility] Respitory Rate 18 12/01/2014 [facility] Systolic (mm Hg) 106 12/01/2014 [facility] Diastolic (mm Hg) 67 12/01/2014 [facility] Respitory Rate 18 12/01/2014 [facility] Temperature Oral (F) 98.4 F 12/01/2014 [facility] Heart Rate 65 12/01/2014 [facility] BMI Calculated 23.32 11/29/2014 [facility] Weight 61.619 11/29/2014 [facility] Height 162.56 cm 11/29/2014 [facility] Weight 68.182 11/28/2014 [facility] Encounters Location Location Details Encounter Type Encounter Number Reason For Visit Attending Provider ADM Date DC Date Status Source [facility] Outpatient [id number] ROUTINE LIZBETH CARTER 02/06/2011 Active [facility] Outpatient [id number] ABDOMEN PAIN LIZBETH CARTER 09/09/2012 Active [facility] Emergency [id number] RAYNA KELLY 10/03/2012 10/04/2012 Discharged [facility] Inpatient [id number] Dave Foster 11/28/2014 12/01/2014 [facility] Outpatient [id number] ZHIHAO VICKY 12/07/2014 Active [facility] Outpatient [id number] ZHIHAO VICKY 02/25/2015 Active [facility] Outpatient [id number] ZHIHAO VICKY 06/03/2015 Active [facility] Outpatient [id number] ZHIHAO VICKY 09/02/2015 Active [facility] Outpatient [id number] ZHIHAO VICKY 12/02/2015 Active [facility] Outpatient [id number] ZHIHAO VICKY 03/01/2016 Active [facility] Outpatient [id number] ZHIHAO VICKY 06/01/2016 Active [facility] Outpatient [id number] GUADALUPE PERRY 07/30/2016 Active [facility] Outpatient [id number] GUADALUPE PERRY 11/05/2016 Active [facility] Out[facility] [id number] GUADALUPE PERRY 12/18/2016 Active [facility] Outpatient [id number] GUADALUPE PERRY 03/21/2017 Active [facility] Outpatient [id number] GUADALUPE PERRY 04/03/2017 Active [facility] Outpatient [id number] Guadalupe Perry 05/14/2017 05/15/2017 [facility] Outpatient [id number] GUADALUPE PERRY 06/21/2017 Active [facility] Outpatient [id number] Guadalupe Perry 06/21/2017 06/22/2017 [facility] Phone Message [id number] 06/25/2017 06/27/2017 [facility] Phone Message [id number] 06/26/2017 06/28/2017 [facility] Outpatient [id number] GUADALUPE PERRY 07/05/2017 Active [facility] [place] Outpatient [id number] Guadalupe Perry 07/05/2017 07/06/2017 [facility] Outpatient [id number] GUADALUPE PERRY 07/11/2017 Active [facility] [place] Outpatient [id number] Guadalupe Perry 07/11/2017 07/12/2017 [facility] Phone Message [id number] 10/01/2017 10/03/2017 [facility] Phone Message [id number] 10/07/2017 10/09/2017 [facility] Outpatient [id number] GUADALUPE PERRY 10/24/2017 Active [facility] Ambulatory Pre-Reg [id number] Guadalupe Perry 10/24/2017 10/24/2017 [facility] Phone Message [id number] 11/05/2017 11/07/2017 [facility] Phone Message [id number] 12/20/2017 12/22/2017 [facility] Phone Message [id number] 12/30/2017 01/01/2018 [facility] Outpatient [id number] GUADALUPE PERRY 01/01/2018 Active [facility] Outpatient [id number] Guadalupe Perry 01/01/2018 01/02/2018 [facility] Phone Message [id number] 01/31/2018 02/02/2018 [facility] Observation [id number] Jannet Enamorado 02/25/2018 02/26/[address] [facility] [place] Outpatient [id number] GUADALUPE PERRY 04/03/2018 Active [facility] Outpatient [id number] Guadalupe Perry 04/03/2018 04/04/2018 [facility] Outpatient [id number] GUADALUPE PERRY 05/02/2018 Active [facility] Outpatient [id number] Guadalupe Perry 05/02/2018 05/03/2018 [facility] Phone Message [id number] 06/17/2018 06/19/2018 [facility] Phone Message [id number] 07/01/2018 07/03/2018 [facility] Outpatient [id number] GUADALUPE PERRY 07/03/2018 Active [facility] Ambulatory Pre-Reg [id number] Guadalupe Perry 07/03/2018 07/03/2018 [facility] Outpatient [id number] GUADALUPE PERRY 08/12/2018 Active [facility] Ambulatory Pre-Reg [id number] Guadalupe Perry 08/12/2018 08/12/2018 [facility] Primary [facility] Phone Message [id number] 08/13/2018 08/15/2018 [facility] Outpatient [id number] Guadalupe Perry 09/03/2018 Active [facility] Outpatient [id number] Guadalupe Perry 09/03/2018 09/04/2018 [facility] Phone Message [id number] 11/25/2018 11/27/2018 [facility] Outpatient [id number] Guadalupe Perry 12/10/2018 Active [facility] Outpatient [id number] Guadalupe Perry 12/10/2018 12/11/2018 [facility] Emergency [id number] Chance Hurley 01/30/2019 01/30/2019 [facility] Outpatient [id number] Eugenie Rojas 03/04/2019 03/04/2019 [facility] Outpatient [id number] Anthony Dhoble 04/10/2019 04/11/2019 [facility] Phone Message [id number] 04/14/2019 04/16/2019 [facility] Inpatient [id number] Anthony Dhoble 04/30/2019 05/02/2019 [facility] Observation [id number] Dave Crsitian 07/07/2019 07/07/2019 [facility] Phone Message [id number] 08/14/2019 08/16/2019 [facility] [place] [facility] [id number] 00 Karina Donohue 10/05/2019 10/06/2019 [facility] [id number] 12/17/2019 12/19/2019 [facility] ROSA [id number] V76.51/V72.83/564 .00/789.06 ROLANDA FORD Cancel [facility] Procedures Procedure Code Date Perfomer Comments Source Diabetic retinopathy screening<sup>1</sup> [id number] 02/08/2017 DENNIS Pratt [facility] [place] Mitral valve operation<sup>2</sup> [id number] 05/27/[address] [facility] [place] Cardiac pacemaker procedure [id number] [facility] [place] Cholecystectomy [id number] [facility] [place] Operation on uterus<sup>3</sup> [id number] tumor jose antonio kenneth [facility] [place] Assessment and Plan Assessment and Plan Date Source Extracted from:Title: Clinical Document Author: Samara Ho NP Date: 07/07/19 [facility] [place] Cardiology Consultation / History and [...] dose of oral Lasix Eugenie Rojas MD [facility] Chief Complaint: Shortness of breath, sharp [...] She is no longer short of breath. Managed Care Liaison: Dr. Rojas Past Medical History: Hypertension Diabetes [...] will continue to monitor closely. 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 Chrissie Jeffrey MD [employer] Condition[employer] Insulation Installer 07/07/2019 [facility] Extracted from:Title: History and Physic al Author: [...] - On metforminand 30 insulin daily at [facility], 15 daily of insulin + SSI inpatient - Restarting other home meds DVT: Resume home warfarin and lovenox bridge GI: Daily omeprazole Home tomorrow pending stable overnight Addendum by Enmanuel Bo MD on 04/30/2019 21:47 ROUGHER HELPER Attending Attestation: I have seen the patient [...] com mon femoral artery for the 14 [place]raltarian introducer FINDINGS AT THE TIME OF SURGERY: 1. Severe calcifications in the aortic valve. 2. The 14 [place]tarian delivery system was passed with no difficulty [...] by Dr. Coelho as he was the traffic lieutenant. The patient was brought into the cardiac laborer pipelines. A time-out procedure was performed which confirmed [...] the entire procedure. Jovany Donnelly M.D. 05/02/2019 [facility] Extracted from:Title: Clinical Document Author: Eugenie Rojas [...] technique and ultrasound guidance technique. A 5 Gibraltarian sheath was placed in the right femoral [...] angiographically normal LAD-mild plaque 10% to 20% Sklxvluexx-ejtrinhv-wvtil vessel gives rise to obtuse marginal 1 2 and 3 minimal plaque CBD-sbelhycy-qjxqn vessel has mild plaque up to 10% in the midsegment Conclusions: Mild plaque with no significant CAD large coronary arteries Recommendation: Resume Lovenox and Coumadin today for mechanical mitral valve replacement Proceed with TAVR evaluation for severe aortic stenosis 03/04/2019 [facility] Extracted from:Title: Discharge Summary * Author: Jannet [...] Rojas MD Date: 02/26/[address] [facility] [place] Chief Complaint-? CVA HPI-This is [...] okay. Her daughter was actually leaving for [place] on Saturday. The family reports to me [...] treat 8. Dispositionobservation, neurology c onsulted 02/26/2018 [facility] Extracted from:Title: Clinical Document Author: Jeremy Peters MD Date: 12/01/14 Progress Note [facility] CC: follow u nader her [...] in a few days. she is to [place] home today. Plan of care discussed with patient and nursing. 12/01/2014 [facility] Plan of Care No Data Provided for [...] Cessation Counseling No entered on: 07/07/19 12/10/2018 [facility] Social History TypeResponse Alcohol Never Substance Abuse Use: None. Smoking Status Never smoker; Previous treatment: None; Ready to change: No; Concerns about tobacco use in household: No; Exposure to Tobacco Smoke None; Cigarette Smoking Last 365 Days Yes; Reg Smoking Cessation Counseling No entered on: 04/30/19 12/10/2018 [facility] Social History TypeResponse Alcohol Never Substance Abuse Use: None. Smoking Status Never smoker; Previous treatment: None; Ready to change: No; Concerns about tobacco use in household: No; Exposure to Tobacco Smoke None; Cigarette Smoking Last 365 Days Yes; Reg Smoking Cessation Counseling No entered on: 07/07/19 12/10/2018 [facility] [place] Family History No Data Provided for This Section Advance Directives No Data Provided for This Section Functional Status No Data Provided for This Section
--- OUTSIDE RECORDS SUMMARY | 2019-12-25 20:58 | XMS REPORT | Continuity of Care Document ---
Author Author [facility] t Organization [facility] Address [address] [place] [address] [place] [id number] Phone Unavailable Care Team Providers Care Music Producer Name Role Phone RICHARD LOZANO MD PCP Richard Donohue Attphys Jose A Foster Attphys Anthony Coelho Attphys PROCEDURES, CARDIO Attphys Unavailable ANTHONY COELHO M.D. Attphys Unavailable Eugenie Rojas Attphys Mike Hurley Attphys Mohini Dee Attphys Mark Enamorado Attphys Jose A Foster Admphys Anthony Coelho Admphys Mark Enamorado Admphys Payers Payer Name Policy Type Policy Number Effective Date Expiration Date [facility] [id number] C [facility] Problems Condition Name Condition Details Condition Category Status Onset Date Resolution Date Last Treatment Date Treating Clinician Comments Source R05 - COUGH R05 - COUGH Active 10/05/2019 [facility] [place] Diagnosis Active 2019-10-05 00:01:00 2019-10-13 14:31:00 Arcadio Luong ACUTE EXACERBATION OF CHF, CHEST PAIN ACUTE EXACERBATION OF CHF, CHEST PAIN Active 07/06/2019 [facility] Diagnosis Ac tive 2019-07-06 00:00:00 2019-07-08 10:58:00 M vandana Luong SOB SOB Active 07/06/2019 [facility] Diagnosis Active 2019-07-06 00:00:00 2019-07-06 22:42:00 [facility] [place] Z95.2 Z95. 2 Active 04/30/2019 [facility] Diagnosis Active 2019-04-30 00:00:00 2019-07-27 15:10:00 [facility] [place] PREADMIT / TAVR / MAC / TTE IL EADMIT / TAVR / MAC / TTE Active 04/14/2019 [facility] Diagnosis Active 2019-04-14 00 :00:00 2019-09-07 13:59:00 [facility] PREADMIT/TAVR W/ SENTINEL/ MAC/TTE PREADMIT/TAVR W/ SENTINEL/ MAC/TTE Active 03/23/2019 [facility] Diagnosis Active 2019-03-23 00:00:00 2019-09-11 15:09:00 [facility] AORTIC STENOSIS AORT IC STENOSIS Active 03/20/2019 [facility] Diagnosis Active 2019-03-20 00:00:00 2019-05-01 1 1:26:00 [facility] LT HEART CATH, FEMORAL APPROACH LT HEART CATH, FEMORAL APPROACH Active 03/04/2019 [facility] Diagnosis Active 2019-03-04 00:0 0:00 2019-03-04 09:23:00 [facility] [place] FALL FALL Active 01/30/2019 [facility] Diagnosis Active 2019-01-30 00:00:00 2019-01-30 16:08:00 [facility] WEAKNESS WEAK NESS Active 02/25/2018 [facility] Diagnosis Active 2018-02-25 00:00:00 2018-02-25 18:50:00 [facility] GENERAL WEAKNESS, PARESTHESIAS/NUMBNESS GENERAL WEAKNESS, PARESTHESIAS/NUMBNESS Active 02/25/2018 [facility] Diagnosis Active 2018-02-25 00:00:00 2018-02-26 11:27:00 [facility] SCREENING SCRE ENING Active 04/05/2017 [facility] Diagnosis Active 2017-04-05 00:00:00 2017-05-14 10:40:00 [facility] [place] Bleeding skin (finding) Blee ding skin (finding) Active 12/07/2014 Problem 12/20/2019 Data migrated from webtide on 12/29/14. Medical Group,[facility], [place] Problem Active 2014-12-07 00:00:00 2019-12-20 23:10:02 [facility] Aortic valve stenosis (disorder) Aortic valve stenosis (disorder) Active 12/03/2014 Problem 12/20/2019 Data migrated from [employer] on 12/29/14. [facility] LAILA [place] Problem Active 2014-12-03 00:00:00 2019-12-20 23:10:02 [facility] FEVER/VOMITTING FEVE R/VOMITTING Active 11/28/2014 [facility] Diagnosis Active 2014-11-28 00:00:00 2014-11-28 20:29:00 [facility] ACUTE CHF EXACERBATION ACUT E CHF EXACERBATION Active 11/28/2014 [facility] Diagnosis Active 2014-11-28 00:00:00 2014-12-01 12:57:00 [facility] Left hemiparesis (disorder) Le ft hemiparesis (disorder) Active 04/28/2014 Problem 12/20/2019 Data migrated from [employer] on 10/23/14. [facility] OPIJose A [place] Problem Active 2014-04-28 00:00:00 2019-12-20 23:10:02 [facility] Insomnia (disorder) Inso mnia (disorder) Active 03/09/2014 Problem 12/20/2019 Data migrated from [employer] on 10/23/14. [facility] LAILA [place] Problem Active 2014-03-09 00:00:00 2019-12-20 23:10:02 vandana Luong Major depressive disorder (disorder) Major depressive disorder (disorder) Active 03/09/2014 Problem 12/20/2019 Data migrated from [employer] on 10/23/14. [facility] OPIJose A [place] Problem Active 2014-03-09 00:00:00 2019-12-20 23:10:02 [facility] Osteoarthritis (disorder) Oste oarthritis (disorder) Active 03/09/2014 Problem 12/20/2019 Data migrated from [employer] on 10/23/14. [facility], LAILA [place] Problem Active 2014-03-09 00:00:00 2019-12-20 23:10:02 [facility] Replacement of mitral valve (procedure) Replacement of mitral valve (procedure) Active 03/09/2014 Problem 12/04/2014 12Data migrated from [employer] on 10/23/14. [facility] Problem Active 2014-03-09 00: 00:00 2014-12-04 01:48:54 [facility] Anemia (disorder) Anem ia (disorder) Active 01/04/2014 Problem 12/20/2019 Data migrated from [employer] on 10/23/14. [facility] LAILA [place] Problem Active 2014-01-04 00:00:00 2019-12-20 23:10:02 M vandana Luong V49.81ASYMPTOMATIC MENOPAUSAL STATE V49.81ASYMPTOMATIC MENOPAUSAL STATE Active 09/03/2013 [facility] Diagnosis Active 2013-09-03 00:00:00 2013-09-04 09:40:00 [facility] Postmenopausal state (finding) Postmenopausal state (finding) Active 09/01/2013 Problem 12/20/2019 Data migrated from [employer] on 10/23/14. [facility] LAILA [place] Problem Active 2013-09-01 00:00:00 2019-12-20 23:10:02 [facility] Urinary incontinence (finding) Urinary incontinence (finding) Active 03/03/2013 Problem 12/20/2019 Data migrated from [employer] on 10/23/14. [facility] LAILA [place] Problem Active 2013-03-03 00:00:00 2019-12-20 23:10:02 [facility] Mitral valve stenosis (disorder) Mitral valve stenosis (disorder) Active 01/20/2013 Problem 12/20/2019 Data migrated from [employer] on 10/23/14. [facility] LAILA [place] Problem Active 2013-01-20 00:00:00 2019-12-20 23:10:02 [facility] Atrial fibrillation (disorder) Atrial fibrillation (disorder) Active 01/20/2013 Problem 12/04/2014 2Data migrated from [employer] on 10/23/14. [facility] Problem Active 2013-01-20 00:00:00 2014-12-04 01:48:54 [facility] ABNORMAL LABS ABNO RMAL LABS Active [...] [place] Diagnosis Active 2011-02-02 00:00:00 2011-02-06 08:44:00 [facility] Essential hypertension (disorder) Essential hypertension (disorder) Active 05/27/1959 Problem 12/20/2019 Data migrated from [employer] on 10/23/14. Medical Group,[facility] OPIJose A [place] Problem Active 1959-05-27 00:00:00 2019-12-20 23:10:02 Arcadio Luong History of - CVA (context-dependent category) History of - CVA (context-dependent category) Active 05/27/1959 Problem 12/20/2019 Data migrated from [employer] on 10/23/14. [facility] OPIJose A [place] Problem Active 1959-05-27 00:0 0:00 2019-12-20 23:10:02 Arcadio Luong Diabetes mellitus type 2 (disorder) Diabetes mellitus type 2 (disorder) Active 05/27/1959 Problem 12/20/2019 Data migrated from [employer] on 10/23/14. [facility] OPID [place] Problem Active 1959-05-27 00:00:00 2019-12-20 23:10:02 [facility] Hyperlipidemia (disorder) Hype rlipidemia (disorder) Active 05/27/1959 Problem 12/04/2014 5Data migrated from [facility] on 10/23/14. 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) Problem Active [facility] Encounter for screening mammogram for malignant neopla of breast Encounter for screening mammogram for malignant neoplasm of breast 05/17/2017 [facility] Problem 2017-05-17 01:26:49 [facility] Final: Nicky l: 12/04/2014 [facility] Problem 2014-12-04 01:48:54 [facility] 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 Hemiplegia and h emiparesis following cerebral infarction affecting left non-dominant side 09/15/2018 [facility] Problem 2018-09-15 14:10:42 [facility] Hypertensive heart disease with heart failure Hypertensive heart disease with heart failure 09/15/2018 [facility] Problem 2018-09-15 14:10:42 [facility] 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 09/15/2018 [facility] Problem 2018-09-15 14:10:42 [facility] Presence of cardiac pacemaker Presence of cardiac pacemaker 09/15/2018 [facility] Problem 2018-09-15 14: 10:42 [facility] 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 09/15/2018 [facility] Problem 2018-09-15 14:10:42 [facility] Type 2 diabetes mellitus without complications Type 2 diabetes mellitus without complications 09/15/2018 [facility] Problem 2018-09-15 14:10:42 [facility] Chronic atrial fibrillation Ch ronic atrial fibrillation 09/15/2018 [facility] Problem 2018-09-15 14:10:4 2 [facility] Hypothyroidism, unspecified Hy pothyroidism, unspecified 09/15/2018 [facility] Problem 2018-09-15 14:10:4 2 [facility] Mixed hyperlipidemia Mixe d hyperlipidemia 09/15/2018 [facility] Problem 2018-09-15 14:10:42 Ri anabelkaterine [place] Major depressive disorder, single episode, unspecified Major depressive disorder, single episode, unspecified 09/15/2018 [facility] Problem 2018-09-15 14:10:42 [facility] 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 09/15/2018 [facility] Problem 2018-09-15 14:10:42 [facility] Unspecified osteoarthritis, unspecified site Unspecified osteoarthritis, unspecified site 09/15/2018 [facility] Problem 2018-09-15 14:10:42 [facility] FCI (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 terminal carman (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 09/15/2018 [facility] 2018-08-26 2 14:10:42 [facility] FCI (current) use of anticoagulants terminal carman (current) use of anticoagulants 09/15/2018 [facility] 2018-09-15 14:10:42 [facility] FCI (current) use of aspirin FCI (current) use of aspirin 09/15/2018 [facility] 2018-08-26 2 14:10:42 [facility] 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 Other chcf (current) drug therapy 09/15/2018 [facility] 2018-09-15 14:10:42 [facility] Cerebrovascular accident (disorder) Cerebrovascular accident (disorder) Resolved Problem 12/20/2019 [facility] 2019-12-20 23:10:02 [facility] Diabetes mellitus (disorder) D iabetes mellitus (disorder) Resolved Problem [facility]20[facility] [place] Problem Resolved 2019-12-20 23 :10:02 [facility] Hypertensive disorder, systemic arterial (disorder) Hypertensive disorder, systemic arterial (disorder) Resolved Problem 12/20/2019 [facility] [place] Problem Resolved 2019-12-20 23:10:02 [facility] [place] Chronic atrial fibrillation (disorder) Chronic atrial fibrillation (disorder) Active Problem 12/20/2019 [facility] [place] Problem Active 2019-12-20 23:10:02 [facility] History of mitral valve replacement (situation) History of mitral valve replacement (situation) Active Problem 12/20/2019 [facility] Problem Ac tive 2019-12-20 23:10:02 Arcadio celis Mixed hyperlipidemia (disorder) Mixed hyperlipidemia (disorder) Active Problem 12/20/2019 [facility] Problem Active 2019-12-20 23:10:0 2 Arcadio Luong Warfarin therapy started (regime/therapy) Warfarin therapy started (regime/therapy) Active Problem 12/20/2019 [facility] Problem Active 2019-12-20 23:10:02 Arcadio Luong 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) 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) Active Problem 12/20/2019 [facility] Problem Active 2019-12-20 23:10:02 Arcadio Luong Edema of lower extremity (finding) Edema of lower extremity (finding) Active Problem 12/20/2019 [facility] Problem Active 2 23:10:02 [facility] CHF NOS CHF NOS Active [facility] Diagnosis Acti ve 2014-12-01 12:57:00 [facility] Her celis HEART FAILURE, UNSPECIFIED HEA RT FAILURE, UNSPECIFIED Active [facility] Diagnosis Active 2019-07-08 10:58:00 [facility] CHEST PAIN, UNSPECIFIED CHES T PAIN, UNSPECIFIED Active [facility] Diagnosis Active 2019-07-08 10:58:00 [facility] Unspecified injury of head, initial encounter Unspecified injury of head, initial encounter 01/30/2019 02/01/2019 [facility] Problem 2019-01-30 17:00:00 2019-02-01 22:17:11 2019-02-01 22:17:11 Arcadio Luong Paresthesia of skin Pare sthesia of skin 03/05/2018 09/15/2018 [facility] Problem 2018-03-05 03:37:54 2018-09-15 14:10: 42 2018-09-15 14:10:42 Arcadio Luong History of Past Illness Condition Name Condition Details Condition Category Status Onset Date Resolution Date Last Treatment Date Treating Clinician Comments Source Screening - health check (procedure) Screening - health check (procedure) Resolved 08/17/2014 Problem 12/20/2019 Data migrated from [employer] on 12/01/14.Data migrated from [employer] on 10/26/14. [facility] [place] Problem Resolved 2014-08-17 00:00:00 2019-12-20 23:10:02 2019-12-20 23:10:02 [facility] Urinary tract infectious disease (disorder) Urinary tract infectious disease (disorder) Resolved 04/28/2014 Problem 12/20/2019 Data migrated from [employer] on 12/11/14. [facility] [place] Problem Resolved 3 00:00:00 2019-12-20 23:10:02 2019-12-20 23:10:02 [facility] Dental abscess (disorder) Holt al abscess (disorder) Resolved 10/13/2013 Problem 12/20/2019 Data migrated from [employer] on 12/11/14. [facility] [place] Problem Resolved 2013-10-13 00:00:00 2019-12-20 23:10:02 2 23:10:02 [facility] Acute cystitis (disorder) Acut e cystitis (disorder) Resolved 07/13/2013 Problem 12/20/2019 Data migrated from [employer] on 12/11/14. [facility] Problem Resolved 2013-07-13 00:00:00 2019-12-20 23:10:02 2 23:10:02 [facility] Allergies, Adverse Reactions, Alerts Allergy Name Allergy Type Status Severity Reaction(s) Onset Date Inacti ve Date Treating Clinician Comments Source No Known Medication Allergies No Known Medication Allergies Active [facility] NKFA NKFA Active [facility] Social History Social Habit Start Date Stop Date Quantity Comments Source Social History 2018-12-10 16:12:28 2018-12-10 16:12:28 [facility] Medications Ordered Medication Name Filled Medication Name [...] Weight 60.909, kg, Start date: 07/08/19 9:00:00 MARKING STITCHER, Duration: 30 day, Stop date: 08/06/19 9:00:00 CDT Mem orial Ag 3 ML Insulin Glargine 100 UNT/ML Prefilled Syringe [Lantus] 2019-07-08 03:00:00 No Notes: (Sa me as: Lantus) Do not hold insulin without contacting prescriber WASTE: F/P - Black; E - Municipal Trash Bin "single patient use only" Stable for 28 days at room temperature Expires in days from Date [facility] prashant latanoprost ophthalmic 2019-07-08 03:00:00 No Notes: Keep refrigerated. (Same as:Xalatan) Opened bottle may be stored at room temperature for 6 weeks [facility] Warfarin 2019-07-07 23:00:00 No 6 mg, 3 tab, Route: PO, Drug form: TAB, Q5PM, Dosing Weight 60.909, kg, Start date: 07/07/19 17:00:00 MARKING STITCHER, Duration: 1 doses or times, Stop date: 07/07/19 17:00:00 MARKING STITCHER, 0 [facility] Furosemide 2019-07-07 23:00:00 No Notes: (Same as: Lasix) MEDICATION WASTE Product Size: 40 mg Product Wasted: ___ mg [facility] travoprost 0.04 MG/ML Ophthalmic Solution [Travatan] 07-07 23:00:00 No 1 drp, Route: OP TH, Drug Form: SOLN, Dosing Weight 60.909, kg, QPM, Start date: 07/07/19 17:00:00 MARKING STITCHER, Duration: 30 day, Stop date: 08/05/19 17:00:00 CDT [facility] Potassium Chloride 2019-07-07 16:56:00 No Notes: (Same as: K-Dur 20) "Do Not Crush" Give with food and full glass of water For patients unable to swallow tablet, dissolve in one half glass of water. Allow about 2 minutes for the tablets to disintegrate. Stir before giving to prepare slurry and administer. Please exclude Patient s with feeding tube less than 14 Kiswahili (Dobhoff, J-tube etc) and pediatric and patients. [facility] Magnesium Sulfate 2019-07-07 16:56:00 No Notes: WASTE: F/P - Sink; E - Municipal Trash Bin [facility] Saline Flush 0.9% 2019-07-07 15:00:00 No Notes: (Same as: BD Posiflush) [facility] atorvastatin 2019-07-07 15:00:00 No Notes: (Same As: Lipitor) [facility] Calcium Carbonate 1500 MG / Cholecalciferol 400 UNT Oral Tab let 2019-07-07 15:00:00 No Notes: (Same As: Michael-D, OsC al-D, Oyster Calcium) [facility] Digoxin 0.125 MG Oral Tablet 2019-07-07 15:00:00 No Notes: Take on an Empty Stomach (Same as: Lanoxin) [facility] orial [place] Escitalopram 2019-07-07 15:00:00 No Notes: (Same as: Lexapro) [facility] ferrous sulfate 2019-07-07 15:00:00 No Notes: Give with food. "Do Not Crush" [facility] Losartan 2019-07-07 15:00:00 No Notes: (Gavino e as: Cozaar) [facility] metoprolol tartrate 2019-07-07 15:00:00 No Notes: (Same as: Lopressor) [facility] Omeprazole 2019-07-07 15:00:00 No 40 mg, 1 cap, Route: PO, Drug form: DRC, Daily, Dosing Weight 60.909, kg, Start date: 07/07/19 9:00:00 MARKING STITCHER, Duration: 30 day, Stop date: 08/05/19 9:00:00 CDT [facility] prednisolone 2019-07-07 15:00:00 No Notes: (Same as: Pred Forte) [facility] Protonix 2019-07-07 15:00:00 No Notes: Tablet should not be chewed or crushed. (Same as: Protonix) [facility] Aspirin 81 MG Enteric Coated Tablet 2019-07-07 11:00:00 No Notes: Do not crush or chew. (Same As: Ecotrin) Li Luong Lasix 2019-07-07 10:11:00 No Notes: (Same as: Lasix) MEDICATION WASTE Product Size: 40 mg Product Wasted: ___ mg [facility] Dextrose 50% Syringe (D50W) 2019-07-07 10:11:00 No 12.5 gm, 25 mL, Route: IVP, Drug Form: INJ, Dosing Weight 60.909, kg, PRN, PRN Blood Glucose Results, Start date: 07/07/19 4:11:00 MARKING STITCHER, Duration: 30 day, Stop date: 08/06/19 5:10:00 CDT, 0 [facility] Glucagon 2019-07-07 10:11:00 No 1 mg, Route: IM, Drug form: PDR/INJ, PRN, Dosing Weight 60.909, kg, PRN Blood Glucose Results, Start date: 07/07/19 4:11:00 MARKING STITCHER, Duration: 30 day, Stop date: 08/06/19 5:10:00 CDT, 0 [facility] Insulin Lispro 2019-07-07 10:11:00 No Notes: (Same as: Humalog) Roll in palms of hands gently; Do not shake vigorously. WASTE: F/P - Black; E - Municipal Trash Bin Stable for 28 days at room temperature. Expires in days from Date [facility] Torsten landerosefra Nitroglycerin 2019-07-07 10:06:00 No Notes: (Same as:Tiny An) "Do Not Crush" Sublingual tablet [facility] Saline Flush 0.9% 2019-07-07 10:06:00 No Notes: (Same as: BD Posiflush) [facility] Lovenox 2019-05-02 02:00:00 No Notes: Nurse to [...] 60.455, kg, QPM, Start date: 05/01/19 17:00:00 MARKING STITCHER, Duration: 30 day, Stop date: 05/30/19 17:00:00 MARKING STITCHER Arcadio Luong POLYETHYLENE GLYCOL 3350 2019-05-01 15:00:00 [...] on an Empty Stomach (Same as: Lanoxin) [facility] gale Luong Escitalopram 2019-05-01 15:00:00 No Notes: (Same as: Lexapro) Arcadio Luong ferrous sulfate 2019-05-01 15:00:00 No Notes: Give with food. "Do Not Crush" Arcadio Luong Losartan 2019-05-01 15:00:00 No Notes: (Gavino e as: Cozaar) Arcadio Luong Omeprazole 2019-05-01 15:00:00 No 40 mg, Route: PO, Drug form: DRC, Daily, Dosing Weight 60.455, kg, Start date: 05/01/19 9:00:00 MARKING STITCHER, Duration: 30 day, Stop date: 05/30/19 9:00:00 MARKING STITCHER [facility] orikaterine Luong Warfarin 2019-05-01 15:00:00 No Route: PO, Drug form: TAB, Q-M-W-F, Dosing Weight 60.455, kg, Start date: 05/01/19 9:00:00 MARKING STITCHER, Duration: 30 day, Stop date: 05/29/19 9:00:00 MARKING STITCHER Arcadio Luong prednisolone 2019-05-01 15:00:00 No Notes: (Same as: Pred Forte) Arcadio Luong Insulin Glargine 2019-05-01 15:00:00 No 15 unit, 0.15 mL, Route: SUB-Q, Drug form: SOLN, Daily, Dosing Weight 60.455, kg, Start date: 05/01/19 9:00:00 MARKING STITCHER, Duration: 30 day, Stop date: 05/30/19 9:00:00 MARKING STITCHER, 0 [facility] Ag Protonix 2019-05-01 13:30:00 No Notes: Tablet [...] as: Toprol XL) D o Not Crush [facility] Ag Acetaminophen 2019-05-01 08:31:00 No Notes: Do not exceed 4 gm/day. (Same as: Tylenol) Arcadio Ag ceFAZolin (SCIP) + sterile water 10 mL 2019-05-01 05:00:00 No Notes: (Same As: Linnea Dickerson) MEDICATION WASTE Product Size: 1000 mg Product Wasted: ___ mg [facility] Docusate 2019-05-01 03:00:00 No Notes: (Same as: Colace) (Do Not Crush) Arcad[facility] [place] latanoprost ophthalmic 2019-05-01 03:00:00 No Notes: Keep [...] Blood Glucose Results, Start date: 04/30/19 17:59:00 MARKING STITCHER, Duration: 30 day, Stop date: 05/30/19 17:58:00 MARKING STITCHER, 0 Arcadio Hauser n Glucagon 2019-04-30 23:59:00 No 1 mg, Route: IM, Drug form: PDR/INJ, PRN, Dosing Weight 60.455, kg, PRN Blood Glucose Results, Start date: 04/30/19 17:59:00 MARKING STITCHER, Duration: 30 day, Stop date: 05/30/19 17:58:00 MARKING STITCHER, 0 Arcadio Luong Insulin Lispro 2019-04-30 23:59:00 No Notes: (Same as: Humalog) Roll in palms of hands gently; Do not shake vigorously. WASTE: F/P - Black; E - Municipal Trash Bin Stable for 28 days at room temperature. Expires in days from Date Arcadio cerda protamine (ANES) 2019-04-30 22:59:00 No Route: IV, Drug form: INJ, ONCE, Stop date: 04/30/19 16:59:00 MARKING STITCHER Li Luong Hydralazine 2019-04-30 22:58:00 No 10 mg, Route: IVP, Q20Min, Dosing Weight 60.455, kg, PRN Elevated BP, Start date: 04/30/19 16:58:00 MARKING STITCHER, Duration: 2 doses or times, Stop date: Limited # of times Arcadio Luong Metoprolol 2019-04-30 22:58:00 No 1 mg, Route: IVP, Q5Min, Dosing Weight 60.455, kg, PRN Other -See Comment, Start date: 04/30/19 16:58:00 MARKING STITCHER, Duration: 5 doses or times, Stop date: Limited # of times [facility] Oxycodone 2019-04-30 22:58:00 No 5 mg, Route: NG, Drug form: LIQ, Q4H, Dosing Weight 60.455, kg, PRN Pain Score 4-6, Start date: 04/30/19 16:58:00 MARKING STITCHER, Duration: 30 day, Stop date: 05/30/19 16:57:00 MARKING STITCHER [facility] Hydromorphone 2019-04-30 22:58:00 No 0.5 mg, Route: IVP, Q5Min, Dosing Weight 60.455, kg, PRN Pain Score 7-10, Start date: 04/30/19 16:58:00 MARKING STITCHER, Duration: 4 doses or times, Stop date: Limited # of times [facility] Fentanyl 2019-04-30 22:58:00 No 50 microgram, Route: IVP, Q5Min, Dosing Weight 60.455, kg, PRN Pain Score 7-10, Priority: Routine, Start date: 04/30/19 16:58:00 MARKING STITCHER, Duration: 2 doses or times, Stop date: Limited # of times [facility] Flumazenil 2019-04-30 22:58:00 No 0.2 mg, Route: IVP, PRN, Dosing Weight 60.455, kg, PRN Benzodiazepine Reversal, Initial dose, Start date: 04/30/19 16:58:00 MARKING STITCHER, Duration: 30 day, Stop date: 05/30/19 16:57:00 MARKING STITCHER [facility] Naloxone 2019-04-30 22:58:00 No 0.4 mg, Route: IVP, Q2MIN, Dosing Weight 60.455, kg, PRN Narcotic Reversal, Start date: 04/30/19 16:58:00 MARKING STITCHER, Duration: 8 doses or times, Stop date: Limited # of times [facility] Ondansetron 2019-04-30 22:58:00 No 4 mg, Route: IVP, ONCE, Dosing Weight 60.455, kg, PRN Nausea & Vomiting, Start date: 04/30/19 16:58:00 MARKING STITCHER [facility] heparin (ANES) 2019-04-30 22:43:00 No Route: IV, Drug form: INJ, ONCE, Stop date: 04/30/19 16:43:00 MARKING STITCHER Li caro ([facility]) 2019-04-30 22:38:00 No Route: IV, Drug form: INJ, ONCE, Stop date: 04/30/19 16:38:00 MARKING STITCHER Arcadio Luong pantoprazole 2019-04-30 22:30:00 No Notes: Tablet should not be chewed or crushed. (Same as: Protonix) Li Luong ceFAZolin ([facility]) 2019-04-30 22:18:00 No Route: IV, Drug form: INJ, ONCE, Stop date: 04/30/19 16:18:00 MARKING STITCHER [facility] midazolam ([facility]) 2019-04-30 22:13:00 No Route: IV, Drug form: SOLN, ONCE, Stop date: 04/30/19 16:13:00 MARKING STITCHER Li Luong fentaNYL ([facility]) 2019-04-30 22:13:00 No Route: IV, Drug form: INJ, ONCE, Stop date: 04/30/19 16:13:00 MARKING STITCHER [facility] Cefazolin 2019-04-30 22:00:00 No Notes: (Same As: Linnea Dickerson) MEDICATION WASTE Product Size: 1000 mg Product Wasted: ___ mg Arcadio Ag propofol ([facility]) 10 mg 2019-04-30 21:42:00 No Route: IV, Drug form: INJ, Start date: 04/30/19 15:42:00 MARKING STITCHER, Stop date: 04/30/19 16:42:00 MARKING STITCHER [facility] Nicardipine 2019-04-30 21:13:00 No Notes: Same as: Cardene Concentration: (0.2 mg /1 ml ) [facility] Acetaminophen 2019-04-30 21:13:00 No Notes: Infuse over 15 minutes Do not exceed 4gm/day of acetaminophen MEDICATION WASTE Product Size: 1000 mg Product Wasted: ___ mg [facility] Ondansetron 2019-04-30 21:13:00 No Notes: (Same as: Zofran) MEDICATION WASTE Product Size: 4 mg Product Wasted: ___ mg Arcadio Ag Sodium Chloride 0.9% (Bolus) IV 2019-04-30 16:00:00 No 250 mL, 250 ml/hr, Infuse Over: 1 hr, Route: IV, 250, Drug form: INJ, ONCALL, Priority: Routine, Dosing Weight 61.364 kg, Start date: 04/30/19 10:00:00 MARKING STITCHER, Duration: 1 doses or times, Stop date: 04/30/19 17:00:00 MARKING STITCHER, 0 [facility] Sodium Chloride 0.9% IV 750 mL 2019-04-30 15:56:00 No 750 mL, Rate: 75 ml/hr, Infuse over: 10 hr, Route: IV, Dosing Weight 61.364 kg, Total Volume: 750, Start date: 04/30/19 9:56:00 MARKING STITCHER, Duration: 24 hr, Stop date: 05/01/19 9:55:00 MARKING STITCHER, 1.68, m2, 0 [facility] n Sodium Chloride 0.9% (titrate) 250 mL 2019-04-30 15:56:00 N o 250 mL, Rate: To prime line and flush remaining blood products., Dosing Weight 61.364, kg, Route: IV, Total Volume: 250, Start Date: 04/30/19 9:56:00 MARKING STITCHER, Duration: 1 day, Stop date: 05/01/19 9:55:00 MARKING STITCHER, Replace Every: 24 hr, 0 Arcadio Luong ferrous sulfate 325 mg oral enteric coated tablet 2019-04-10 19:27:00 Yes 325 mg = 1 tab, PO, Daily, # 60 tab, 3 Refill(s ) [facility] Enoxaparin Sodium 60 MG/0.6ML Subcutaneous Solution En oxaparin Sodium 60 MG/0.6ML Subcutaneous Solution 2019-03-20 00:00:00 Yes JAIME CONCEPCION M.D. inject 60mg twice daily starting 5 days prior to proce dure. [facility] Enoxaparin 2019-03-04 18:00:00 No Notes: Nurse to ensure documentation of patient education per anticoagulation policy. (Same as: Lovenox) [facility] [place] enoxaparin 60 mg/0.6 mL subcutaneous solution 2019-03-04 16:29:0 0 Yes 60 mg, SUB-Q, Q12H, X 7 day, # 14 syr, 0 Refill(s), Pharmacy: [facility]/pharmacy #[id number] [facility] Sodium Chloride 0.9% IV 250 [...] Yes Rodrick Teague Md 325 Daily [facility] Metoprolol Tartrate 25 mg oral tablet 2018-11-25 21:56:40 Y es = 1 tab, PO, BID, # 180 tab, 0 Refill(s), Pharmacy: [facility]/pharmacy #[id number] Arcadio Luong Nitroglycerin 0.4 MG Sublingual Tablet 2018-11-09 03:51:22 Yes See Instructions, # 50 tab, Refill(s) 1, PLACE 1 TAB UNDER TONGUE EVER 5 MINUTES X 3 DOSES FOR CHEST PAIN IF NO IMPROVEMENT SEEK MEDICAL ATT., Pharmacy: [address] warfarin 5 mg oral tablet 2018-09-03 15:22:18 Yes = 1 tab, PO, Daily, # 90 tab, 1 Refill(s), Pharmacy: [address] escitalopram 10 mg oral tablet 2018-08-13 19:18:00 Yes 10 mg = 1 tab, PO, Daily, # 90 tab, 0 Refill(s), Pharmacy: [address] Metformin hydrochloride 1000 MG Oral Tablet 2018-07-02 21:09:00 Yes 1,000 mg = 1 tab, PO, BID, # 180 tab, 1 Refill(s), Pharmacy: [address] Metformin hydrochloride 1000 MG Oral Tablet 2018-07-01 22:28:48 No 1,000 mg = 1 tab, PO, BID, # 180 tab, 1 Refill(s), Pharmacy: [address] ACCU-CHEK ADRIÁN PLUS TEST STRP 2018-06-18 05:40:31 Yes See Instructions, # 50 strip, Refill(s) 5, USE DIRECTED ONCE DAILY, Pharmacy: [address] Nitroglycerin 0.4 MG Sublingual Tablet 2018-05-29 14:39:12 No See Instructions, # 50 tab, Refill(s) 1, PLACE 1 TAB UNDER TONGUE EVER 5 MINUTES X 3 DOSES FOR CHEST PAIN IF NO IMPROVEMENT SEEK MEDICAL ATT., Pharmacy: [address] Ofloxacin 3 MG/ML Otic Solution 2018-05-02 16:28:00 Yes 5 drp, RIGHT EAR, BID, # 10 mL, 0 Refill(s), Pharmacy: [address] Coumadin 2018-02-27 22:00:00 No Notes: Nurse to ensure documentation of patient education per anticoagulation policy. Avoid large intake of vitamin- K containing foods diet. (Same As: Coumadin) WASTE: F/P - P Waste Black; E - P Waste Black [facility] 3 ML Insulin Glargine 100 UNT/ML Prefilled [...] Same As: Gage atan or Travatan Z [facility] Ag Warfarin 2018-02-26 22:00:00 No 5 mg, 1 tab, Route: PO, Drug form: TAB, Q5PM, Dosing Weight 63.6, kg, Start date: 02/26/18 17:00:00 CDT, Duration: 30 day, Stop date: 03/27/18 17:00:00 CDT [facility] Warfarin 2018-02-26 21:00:00 No Notes: Nurse [...] as: Toprol XL) D o Not Crush [facility] Losartan 2018-02-26 14:00:00 No Notes: (Gavino e as: Cozaar) [facility] Furosemide 40 MG Oral Tablet 2018-02-26 14:00:00 No Notes: (Same as: Lasix) May cause GI upset. Give with food or milk. [facility] Escitalopram 2018-02-26 14:00:00 No Notes: (Same as: Lexapro) [facility] Digoxin 0.125 MG Oral Tablet 2018-02-26 14:00:00 No Notes: Take on an Empty Stomach (Same as: Lanoxin) [facility] gale Luong Aspirin 81 MG Enteric Coated [...] 23:49:00 No Notes: (Gavino e as: SEROquel) [facility] Vasotec 2018-02-25 23:49:00 No Notes: (Same as: Vasotec-IV) [facility] Melatonin 2018-02-25 23:49:00 No Notes: ([facility] as: Melatonin) [facility] Ondansetron 2018-02-25 23:49:00 No Notes: (Same as: Zofran) MEDICATION WASTE Product Size: 4 mg Product Wasted: ___ mg [facility] Acetaminophen 325 MG / Hydrocodone Bitartrate 5 MG Oral Tabl et 2018-02-25 23:49:00 No Notes: ([facility] as: [place] 325/5) Do not exceed 4gm/day of acetaminophen. [facility] Docusate 2018-02-25 23:49:00 No Notes: (Same as: Colace) (Do Not Crush) [facility] Morphine 2018-02-25 23:49:00 No Not es: (Same as:MORPhine Sulfate) [facility] Acetaminophen 2018-02-25 23:49:00 No Notes: Do not exceed 4 gm/day. (Same as: Tylenol) [facility] Saline Flush 0.9% 2018-02-25 18:23:00 No Notes: (Same as: BD Posiflush) [facility] 3 ML Insulin Glargine 100 UNT/ML Prefilled Syringe [Lantus] 2018-02-01 04:09:57 Yes See Instru ctions, INJECT 30 UNITS SUB-Q AT BEDTIME ROTATE INJECTION SITES, # 15 syr, 4 Refill(s), Pharmacy: [facility]/pharmacy #[id number] [facility] warfarin 1 mg oral tablet 2017-12-30 20:16:16 Yes See Instructions, 1 tab PO every MWF, # 1 tab, 2 Refill(s), Pharmacy: [facility]/pharmacy #[id number] [facility] Metformin hydrochloride 1000 MG Oral Tablet 2017-12-21 03:19:36 No 1,000 mg = 1 tab, PO, BID, # 180 tab, 1 Refill(s), Pharmacy: [facility]/pharmacy #[id number] [facility] warfarin 5 mg oral tablet 2017-11-05 23:54:30 Yes 5 mg = 1 tab, PO, Daily, # 90 tab, 1 Refill(s), Pharmacy: [facility]/pharmacy #[id number] [facility] losartan 25 mg oral tablet 2017-11-05 23:54:12 Yes 25 mg = 1 tab, PO, Daily, # 90 tab, 1 Refill(s), [id number] escitalopram 10 mg oral tablet 2017-10-07 23:56:47 Yes 10 mg = 1 tab, PO, Daily, # 90 tab, 1 Refill(s), [id number] warfarin 1 mg oral tablet 2017-10-01 22:01:58 Yes See Instructions, TAKE ONE TABLET BY MOUTH DAILY NEEDED, # 30 tab, 2 Refill(s), [id number] Acetaminophen 325 MG / tramadol hydrochloride 37.5 MG Oral T ablet 2017-07-05 18:08:19 Yes 1 tab, PO, Daily, take as needed, # 30 tab, 1 Refill(s) [facility] Oseltamivir 75 MG Oral Capsule [Tamiflu] 2017-07-05 18:08:00 Yes 75 mg = 1 cap, PO, BID, # 10 cap, 0 Refill(s) [facility] BD Ultra-Fine Mini Insulin Pen [place] 31G 5mm=3/16 inch 2017-07-05 18:08:00 Yes 1 ea, MISC, Daily, # 100 ea, 3 R efill(s) [facility] benzonatate 100 mg oral capsule 2017-06-21 16:04:00 No 100 mg = 1 cap, PO, TID, PRN cough, do not crush or chew, X 10 day, # 30 cap, 0 Refill(s), Pharmacy: [facility]/pharmacy #[id number] [facility] Cefuroxime 500 MG Oral Tablet 2017-06-21 16:04:00 No 500 mg = 1 tab, PO, BID, X 7 day, # 14 tab, 0 Refill(s), [id number] Furosemide 40 MG Oral Tablet 2014-12-02 14:00:00 No Notes: (Same as: Lasix) May cause GI upset. Give with food or milk. [facility] Levofloxacin 250 MG Oral Tablet [Levaquin] 2014-12-01 17:37:00 Yes 250 mg = 1 tab, PO, Q24H, X 5 day, # 5 tab, 0 Refill(s) [facility] Warfarin 2014-11-30 22:00:00 No Notes: Nurse to ensure documentation of patient education per anticoagulation policy. Avoid large intake of vitamin- K containing foods diet. (Same As: Coumadin) [facility] Levaquin 2014-11-30 16:00:00 No Notes: (Gavino e as:Levaquin) [facility] Losartan 2014-11-30 14:00:00 No Notes: (Gavino e as: Cozaar) [facility] Escitalopram 2014-11-30 14:00:00 No Notes: (Same as: Lexapro) [facility] Morphine 2014-11-30 13:08:00 No Not es: (Same as:MORPhine Sulfate) [facility] digoxin 125 mcg (0.125 mg) oral tablet 2014-11-30 11:30:00 No Notes: Take on an Empty Stomach (Same as: Lanoxin) [facility] travoprost 0.04 MG/ML Ophthalmic Solution [Travatan] 11-30 02:00:00 No Notes: (Same As: Travatan) [facility] Levemir FlexPen 2014-11-30 02:00:00 No Notes: Same as Levemir Do not hold insulin without contacting prescriber "single patient use only" [facility] Insulin Glargine 2014-11-30 02:00:00 No 30 unit, Route: SUB-Q, Drug form: SOLN, Bedtime, Dosing Weight 61.619, kg, Start date: 11/29/14 21:00:00, Duration: 30 day, Stop date: 12/28/14 21:00:00 [facility] atorvastatin 2014-11-30 02:00:00 No Notes: (Same As: Lipitor) [facility] Mucinex Max Strength 2014-11-30 02:00:00 No Notes: (Same as: Guaifenesin LA, Humibid LA, Mucinex) "Do Not Crush" Take medication with plenty of water. [facility] Warfarin 2014-11-29 22:00:00 No Notes: Nurse to ensure documentation of patient education per anticoagulation policy. Avoid large intake of vitamin- K containing foods diet. (Same As: Coumadin) [facility] metoprolol tartrate 2014-11-29 22:00:00 No Notes: (Same [...] 2014-11-29 16:00:00 No 500 mg, Route: IVPB, [id number], Dosing Weight 61.619, kg, Start date: 11/29/14 [...] Duration: 30 day, Stop date: 12/29/14 10:08:00 [facility] [place] Lorazepam 2014-11-29 15:07:00 No Notes: (Sa me as: Ativan) [facility] Acetaminophen 325 MG / tramadol hydrochloride 37.5 [...] doses or times, Stop date: 11/29/14 9:00:00 [facility] Insulin, Aspart, Human 2014-11-29 07:03:00 No Notes: Roll in palms of hands gently; Do not shake vigorously. (Same as: NovoLOG) "single patient use only" Stable for 28 days at room temperature. Expires in days from Date [facility] Glucagon 2014-11-29 07:03:00 No 1 mg, Route: IM, Drug form: PDR/INJ, PRN, Dosing Weight 68.182, kg, PRN Blood Glucose Results, Start date: 11/29/14 2:03:00, Duration: 30 day, Stop date: 12/29/14 2:02:00 [facility] Dextrose 50% Syringe 2014-11-29 07:03:00 No 25 [...] 03:08:00 Yes Special Instructions: takes with christopher [facility] Ana Maria shaffer losartan 25 mg oral tablet 2014-11-29 03:07:00 Yes Special Instructions: takes with christopher [facility] Ana Maria shaffer 3 ML Insulin Glargine 100 UNT/ML Prefilled Syringe [Lantus] 2014-11-29 03:06:00 Yes 30 unit, SUB-Q, Bedtime, # 1 pen(s), 3 Refill(s) rAcadio Luong Furosemide 40 MG Oral Tablet 2014-11-29 03:06:00 Yes Special Instructions: takes with christopher [facility] Ana Maria shaffer warfarin 5 mg oral tablet 2014-11-29 03:04:00 Yes Special Instructions: with christopher [facility] warfarin 6 mg oral tablet 2014-11-29 03:04:00 Yes Special Instructions: with christopher [facility] Saline Flush 0.9% 2014-11-28 23:58:00 No Notes: (Same as: BD Posiflush) [facility] Acetaminophen 2014-11-28 23:57:00 No 650 mg, Route: PO, Drug form: TAB, ONCE, Dosing Weight 68.182, kg, Priority: STAT, Start date: 11/28/14 18:57:00, Stop date: 11/28/14 18:57:00 M vandana Luong Aspirin 2014-11-28 23:51:00 No 325 mg, Route: PO, Drug form: ECTAB, ONCE, Dosing Weight 68.182, kg, Priority: STAT, Start date: 11/28/14 18:51:00, Stop date: 11/28/14 18:51:00 [facility] prashant Lasix 2014-11-28 23:50:00 No 40 mg, Route: IVP, Drug form: INJ, ONCE, Dosing Weight 68.182, kg, Priority: STAT, Start date: 11/28/14 18:50:00, Stop date: 11/28/14 18:50:00 [facility] prashant influenza virus vaccine, inactivated 2008-07-02 05:18:06 No SYSTEM SYSTEM 0.5 ml, Route: IM, Drug Form : INJ, ONCALL, Start date: 07/01/08 23:18:06, Stop date: 07/31/08 23:03:06 [facility] Travfabrice Z SOLPeggy Yes [facility] Nitroglycerin 0.4 MG Sublingual Tablet Sublingual Nitr oglycerin 0.4 MG Sublingual Tablet Sublingual Yes DISSOLVE 1 TABLET UNDER THE TONGUE NEEDED FOR CHEST PAIN. [facility] Furosemide 40 MG Oral Tablet Furosemide 40 MG Oral Tablet Y es 1 QD TAKE 1 TABLET DAILY. [facility] Warfarin Sodium 1 MG Oral Tablet Warfarin Sodium 1 MG Oral Tablet Yes 1 QD TAKE 1 TABLET DAILY. [facility] Warfarin Sodium 5 MG Oral Tablet Warfarin Sodium 5 MG Oral Tablet Yes 1 QD TAKE 1 TABLET DAILY. [facility] Omeprazole 40 MG Oral Capsule Delayed Release Omeprazo le 40 MG Oral Capsule Delayed Release Yes 1 QD TAKE 1 CAPSULE DAILY [facility] metFORMIN HCl - 1000 MG Oral Tablet metFORMIN HCl - 1000 MG Oral Tabl et Yes QD TAKE 1 TABLET DAILY WITH FOOD. [facility] Aspirin 81 MG Oral Tablet Delayed Release Aspirin 81 M G Oral Tablet Delayed Release Yes 1 QD TAKE 1 TABLET DAILY. [facility] Escitalopram Oxalate 10 MG Oral Tablet Escitalopram Oxalate 10 M G Oral Tablet Yes 1 QD TAKE 1 TABLET DAILY. [facility] Losartan Potassium 25 MG Oral Tablet Losartan Potassium 25 MG Oral Tablet Yes 1 QD TAKE 1 TABLET DAILY. [facility] Digoxin 125 MCG Oral Tablet Digoxin 125 MCG Oral Tablet Yes 1 QD TAKE 1 TABLET DAILY. [facility] Metoprolol Tartrate 25 MG Oral Tablet Metoprolol Tartrate 25 MG Ora l Tablet Yes Q0.5D TAKE 1 TABLET TWICE DAILY. [facility] Ferrous Sulfate 325 (65 Fe) MG Oral Tablet Ferrous Sul fate 325 (65 Fe) MG Oral Tablet Yes Q0.5D TAKE 1 TABLET TWICE DAILY. [facility] Atorvastatin Calcium 20 MG Oral Tablet Atorvastatin Calcium 20 M G Oral Tablet Yes 1 QD TAKE 1 TABLET DAILY. [facility] Calcium 600+D3 TABS Calcium 600+D3 TABS Yes [facility] Vital Signs Vital Name Observation Time Observation Value Comments Source Temperature Oral (F) 2019-07-07 16:53:00 97.6 F [facility] Heart Rate 2019-07-07 16:53:00 [facility] Respitory Rate 2019-07-07 16:53:00 Nikhil Gr Systolic (mm Hg) 2019-07-07 16:53:00 Jorge rial [place] Diastolic (mm Hg) 2019-07-07 16:53:00 Mem [facility] [place] Heart Rate 2019-07-07 15:19:00 [facility] Respitory Rate 2019-07-07 15:19:00 [facility] [place] Systolic (mm Hg) 2019-07-07 15:19:00 Jorge rial Ag Diastolic (mm Hg) 2019-07-07 15:19:00 [facility] [place] Temperature Oral (F) 2019-07-07 14:17:00 97.7 F [facility] Heart Rate 2019-07-07 14:17:00 [facility] [place] Respitory Rate 2019-07-07 14:17:00 [facility] [place] Systolic (mm Hg) 2019-07-07 14:17:00 Jorge [facility] [place] Diastolic (mm Hg) 2019-07-07 14:17:00 [facility] [place] BMI Calculated 2019-07-07 10:07:00 [facility] Height 2019-07-07 08:50:00 160.02 cm [facility] [place] Weight 2019-07-07 08:50:00 [facility] BMI Calculated 2019-07-07 08:50:00 [facility] [place] Temperature Oral (F) 2019-07-07 08:20:00 98.0 F [facility] [place] Height 2019-07-07 01:38:00 160.02 cm [facility] [place] BMI Calculated 2019-07-07 01:38:00 [facility] Weight 2019-07-07 01:38:00 [facility] Temperature Oral (F) 2019-05-01 22:00:00 97.7 F [facility] Systolic (mm Hg) 2019-05-01 21:00:00 Jorge rial [place] Diastolic (mm Hg) 2019-05-01 21:00:00 Mem [facility] Ag Systolic (mm Hg) 2019-05-01 20:00:00 Jorge [facility] [place] Diastolic (mm Hg) 2019-05-01 20:00:00 [facility] [place] Systolic (mm Hg) 2019-05-01 19:00:00 Jorge rial Ag Diastolic (mm Hg) 2019-05-01 19:00:00 [facility] [place] Temperature Oral (F) 2019-05-01 18:00:00 98.0 F [facility] Respitory Rate 2019-05-01 15:00:00 [facility] [place] Respitory Rate 2019-05-01 14:25:00 [facility] [place] Temperature Oral (F) 2019-05-01 14:25:00 98.1 F [facility] [place] Respitory Rate 2019-05-01 13:00:00 [facility] Height 2019-04-30 15:56:00 160.02 cm [facility] Weight 2019-04-30 15:56:00 [facility] BMI Calculated 2019-04-30 15:56:00 [facility] [place] Heart Rate 2019-04-10 19:45:00 [facility] [place] Respitory Rate 2019-04-10 19:45:00 [facility] Systolic (mm Hg) 2019-04-10 19:45:00 Jorge rial [place] Diastolic (mm Hg) 2019-04-10 19:45:00 Mem [facility] [place] Heart Rate 2019-04-10 19:25:00 [facility] [place] Respitory Rate 2019-04-10 19:25:00 [facility] al Ag Systolic (mm Hg) 2019-04-10 19:25:00 Jorge rial Ag Diastolic (mm Hg) 2019-04-10 19:25:00 Mem orial [place] Height 2019-04-10 17:33:00 162.56 cm [facility] Weight 2019-04-10 17:33:00 [facility] BMI Calculated 2019-04-10 17:33:00 [facility] al [place] BP Systolic 2019-04-10 14:52:00 116 mm[Hg] Location: RUE; Positi on: Sitting [facility] BP Diastolic 2019-04-10 14:52:00 64 mm[Hg] Location: RUE; Positi on: Sitting [facility] Height 2019-04-10 14:52:00 60 [in_us] [facility] Weight 2019-04-10 14:52:00 131.125 [lb_av] [facility] Body Mass Index Calculated 2019-04-10 14:52:00 25.61 kg/m2 [facility] Heart Rate 2019-04-10 14:52:00 73 /min Location: R Brachial Artery; [facility] Respiration Rate 2019-04-10 14:52:00 16 /min Quality[facility] SAT 2019-04-10 14:52:00 98 % Source: [facility] BP Systolic 2019-03-20 16:15:00 110 mm[Hg] Location: RUE; Positi on: Sitting [facility] BP Diastolic 2019-03-20 16:15:00 64 mm[Hg] Location: RUE; Positi on: Sitting [facility] Height 2019-03-20 16:15:00 60 [in_us] [facility] Weight 2019-03-20 16:15:00 135 [lb_av] [facility] Body Mass Index Calculated 2019-03-20 16:15:00 26.37 kg/m2 [facility] Heart Rate 2019-03-20 16:15:00 60 /min Location: R Brachial Artery; [facility] Respiration Rate 2019-03-20 16:15:00 16 /min Quality: Normal U [facility] O2 SAT 2019-03-20 16:15:00 100 % Source: [facility] Respitory Rate 2019-03-04 17:59:00 Mem[facility] al Ag Systolic (mm Hg) 2019-03-04 17:59:00 Jorge rial Ag Diastolic (mm Hg) 2019-03-04 17:59:00 Mem orial Ag Respitory Rate 2019-03-04 17:45:00 Mem[facility] al Ag Systolic (mm Hg) 2019-03-04 17:45:00 Jorge rial [place] Diastolic (mm Hg) 2019-03-04 17:45:00 Mem orial [place] Respitory Rate 2019-03-04 17:30:00 [facility] al [place] Systolic (mm Hg) 2019-03-04 17:30:00 Jorge rial Ag Diastolic (mm Hg) 2019-03-04 17:30:00 Mem orial [place] Temperature Oral (F) 2019-03-04 16:35:00 98.1 F [facility] Temperature Oral (F) 2019-03-04 15:09:00 98.5 F [facility] [place] Height 2019-03-04 14:45:00 162.56 cm [facility] Weight 2019-03-04 14:45:00 [facility] BMI Calculated 2019-03-04 14:45:00 [facility] al [place] Temperature Oral (F) 2019-01-30 22:00:00 98.4 F [facility] Heart Rate 2019-01-30 22:00:00 [facility] [place] Respitory Rate 2019-01-30 22:00:00 [facility] [place] Systolic (mm Hg) 2019-01-30 22:00:00 Jorge rial [...] Ag BMI Calculated 2019-01-30 20:05:00 [facility] al [place] Weight 2019-01-30 20:05:00 [facility] Weight 2018-12-10 16:10:00 [facility] Height 2018-12-10 16:10:00 160.02 cm [facility] BMI Calculated 2018-12-10 16:10:00 [facility] al [place] Respitory Rate 2018-12-10 16:10:00 [facility] al Ag Heart Rate 2018-12-10 16:10:00 [facility] Temperature Oral (F) 2018-12-10 16:10:00 97.4 F [facility] [place] Systolic (mm Hg) 2018-12-10 16:10:00 Jorge rial [place] Diastolic (mm Hg) 2018-12-10 16:10:00 Mem orial Ag Height 2018-09-03 15:02:00 160.02 cm [facility] Weight 2018-09-03 15:02:00 [facility] [place] BMI Calculated 2018-09-03 15:02:00 Mem[facility] al Ag Systolic (mm Hg) 2018-09-03 15:02:00 Jorge rial Ag Diastolic (mm Hg) 2018-09-03 15:02:00 Mem orial [place] Temperature Oral (F) 2018-09-03 15:02:00 97.4 F [facility] Respitory Rate 2018-09-03 15:02:00 [facility] Ag Heart Rate 2018-09-03 15:02:00 [facility] Height 2018-05-02 16:05:00 160.02 cm [facility] [place] BMI Calculated 2018-05-02 16:05:00 [facility] al [place] Weight 2018-05-02 16:05:00 [facility] Temperature Oral (F) 2018-05-02 16:05:00 98.3 F [facility] Heart Rate 2018-05-02 16:05:00 [facility] [place] Respitory Rate 2018-05-02 16:05:00 Mem[facility] al [place] Systolic (mm Hg) 2018-05-02 16:05:00 Jorge rial [place] Diastolic (mm Hg) 2018-05-02 16:05:00 Mem orial [place] Height 2018-04-03 16:53:00 160.02 cm [facility] [place] Weight 2018-04-03 16:53:00 [facility] BMI Calculated 2018-04-03 16:53:00 [facility] Ag Systolic (mm Hg) 2018-04-03 16:53:00 Jorge rial Ag Diastolic (mm Hg) 2018-04-03 16:53:00 Mem orial Ag Heart Rate 2018-04-03 16:53:00 [facility] [place] Temperature Oral (F) 2018-04-03 16:53:00 98.0 F [facility] Respitory Rate 2018-04-03 16:53:00 [facility] [place] Temperature Oral (F) 2018-02-26 20:24:00 98.2 F [facility] Heart Rate 2018-02-26 20:24:00 [facility] Systolic (mm Hg) 2018-02-26 20:24:00 Jorge rial [place] Diastolic (mm Hg) 2018-02-26 20:24:00 Mem orial [place] Respitory Rate 2018-02-26 20:24:00 [facility] [place] Heart Rate 2018-02-26 15:36:00 [facility] Temperature Oral (F) 2018-02-26 15:36:00 98.3 F [facility] [place] Systolic (mm Hg) 2018-02-26 15:36:00 Jorge rial Ag Diastolic (mm Hg) 2018-02-26 15:36:00 Mem orial Ag Respitory Rate 2018-02-26 15:36:00 Mem[facility] al [place] Respitory Rate 2018-02-26 12:10:00 Memori al Ag Heart Rate 2018-02-26 12:10:00 [facility] [place] Systolic (mm Hg) 2018-02-26 12:10:00 Jorge rial Ag Diastolic (mm Hg) 2018-02-26 12:10:00 Mem orial [place] Temperature Oral (F) 2018-02-26 12:10:00 97.8 F [facility] Height 2018-02-26 03:10:00 165.1 cm [facility] [place] BMI Calculated 2018-02-26 03:10:00 [facility] al [place] Weight 2018-02-26 03:10:00 [facility] [place] Weight 2018-02-25 17:59:00 [facility] BMI Calculated 2018-02-25 17:59:00 [facility] [place] Height 2018-02-25 17:59:00 160.02 cm [facility] [place] BMI Calculated 2018-01-01 18:52:00 [facility] [place] Weight 2018-01-01 18:52:00 [facility] [place] Height 2018-01-01 18:52:00 160.02 cm [facility] Respitory Rate 2018-01-01 18:52:00 [facility] [place] Temperature Oral (F) 2018-01-01 18:52:00 97.1 F [facility] [place] Heart Rate 2018-01-01 18:52:00 [facility] [place] Systolic (mm Hg) 2018-01-01 18:52:00 Jorge rial Ag Diastolic (mm Hg) 2018-01-01 18:52:00 Mem orial Ag Weight 2017-07-11 17:49:00 [facility] [place] BMI Calculated 2017-07-11 17:49:00 [facility] Ag Height 2017-07-11 17:49:00 160.02 cm [facility] Heart Rate 2017-07-11 17:49:00 [facility] Respitory Rate 2017-07-11 17:49:00 [facility] Temperature Oral (F) 2017-07-11 17:49:00 98.2 F [facility] Systolic (mm Hg) 2017-07-11 17:49:00 Jorge rial [place] Diastolic (mm Hg) 2017-07-11 17:49:00 Mem orial [place] BMI Calculated 2017-07-05 16:55:00 [facility] [place] Weight 2017-07-05 16:55:00 [facility] Height 2017-07-05 16:55:00 160.02 cm [facility] [place] Temperature Oral (F) 2017-07-05 16:55:00 100.9 F [facility] Heart Rate 2017-07-05 16:55:00 [facility] [place] Respitory Rate 2017-07-05 16:55:00 [facility] [place] Systolic (mm Hg) 2017-07-05 16:55:00 Jorge rial Ag Diastolic (mm Hg) 2017-07-05 16:55:00 Mem orial Ag Temperature Oral (F) 2017-06-21 15:30:00 99.5 F [facility] [place] Respitory Rate 2017-06-21 15:30:00 Mem[facility] al Ag Heart Rate 2017-06-21 15:30:00 [facility] [place] Systolic (mm Hg) 2017-06-21 15:30:00 Jorge rial [place] Diastolic (mm Hg) 2017-06-21 15:30:00 Mem orial [place] BMI Calculated 2017-06-21 15:30:00 Mem[facility] al Ag Weight 2017-06-21 15:30:00 [facility] [place] Height 2017-06-21 15:30:00 160.02 cm [facility] Heart Rate 2014-12-01 17:00:00 [facility] [place] Respitory Rate 2014-12-01 17:00:00 [facility] al [place] Systolic (mm Hg) 2014-12-01 17:00:00 Jorge rial Ag Diastolic (mm Hg) 2014-12-01 17:00:00 Mem orial [place] Temperature Oral (F) 2014-12-01 17:00:00 97.7 F [facility] Temperature Oral (F) 2014-12-01 13:00:00 98.5 F [facility] [place] Systolic (mm Hg) 2014-12-01 13:00:00 Jorge rial Ag Diastolic (mm Hg) 2014-12-01 13:00:00 Mem orial Ag Heart Rate 2014-12-01 13:00:00 [facility] [place] Respitory Rate 2014-12-01 13:00:00 Mem[facility] Systolic (mm Hg) 2014-12-01 09:00:00 Jorge rial [place] Diastolic (mm Hg) 2014-12-01 09:00:00 Jovan beasley [place] Respitory Rate 2014-12-01 09:00:00 Nikhil Gr Temperature Oral (F) 2014-12-01 09:00:00 98.4 F [facility] Ag Heart Rate 2014-12-01 09:00:00 [facility] [place] BMI Calculated 2014-11-29 07:04:00 Nikhil garcias [place] Weight 2014-11-29 07:04:00 [facility] [place] Height 2014-11-29 07:04:00 162.56 cm [facility] Ag Weight 2014-11-28 22:06:00 [facility] [place] Procedures Procedure Date / Time Performed Performing Clinician Capo e [N] 2D Echo complete, with Doppler [id number] 2019-04-30 00:00:00 [facility] Complete PFTs w/DLCO and Lung Volumes 2019-03-20 00:00:00 [facility] CTA Chest/Abd/Pelvis TAVR [id number] 2019-03-20 00:00:00 [facility] CTA Heart/Coronary art TAVR [id number] 2019-03-20 00:00:00 [facility] [N] 2D Echo complete, with Doppler [id number] 2019-03-15 00:00:00 [facility] Diabetic retinopathy screening<sup>1</sup> 2017-02-08 05:00:00 [facility] Mitral valve operation<sup>2</sup> 2011-05-27 00:00:00 [facility] Cardiac pacemaker procedure Jorge rial [place] [facility] Operation on uterus<sup>3</sup> [facility] Plan of Care Planned Activity Planned Date Details Comments Source Diagnostic Test Pending 2019-03-20 00:00:00 [N] 2D Echo comp lete, with Doppler 45521 [code = [N] 2D Echo complete, with Doppler 88536] [facility] Future Scheduled Test CTA Chest/Abd/Pelvis TAVR 17388-81 [code = 70701-75] Approx [id number] [facility] Future Scheduled Test CTA Heart/Coronary art TAV R 27440-03 [code = 60247-82] Approx [id number] [facility] Future Scheduled Test [N] 2D Echo comple te, with Doppler 95650 [code = [N] 2D Echo complete, with Doppler 15045] Approx [id number] [facility] Future Scheduled Test [N] 2D Echo comple te, with Doppler 44370 [code = [N] 2D Echo complete, with Doppler 94753] Approx [id number] [facility] Encounters Start Date/Time End Date/Time Encounter Type Admission Type [facility] Care Department Encounter ID Source 2019-06-24 12:16:23 Outpatient [facility] CAR [id number] [facility] 2019-04-30 09:40:00 Inpatient [facility] CAR 75 [id number] [facility] 2019-04-07 13:08:30 Inpatient [facility] CAR 75 [id number] [facility] 2019-12-17 15:13:11 2019-12-18 23:59:59 Outpatient [facility] [id number] 2019-10-05 12:28:00 2019-10-05 23:59:00 Outpatient Richard Ying [id number] 2019-08-14 11:56:58 2019-08-15 23:59:59 Outpatient [facility] [id number] 2019-07-06 19:28:17 2019-07-07 15:13:00 Outpatient Amadeo Foster [facility] [id number] 2019-07-07 01:44:00 2019-07-07 01:44:00 Outpatient E [facility] MED [id number] [facility] 2019-04-30 09:40:00 2019-05-01 18:45:00 Outpatient Estephania Coelho [facility] [id number] 2019-04-30 13:00:00 2019-04-30 13:00:00 Appointment; PROCEDURES, CA RDIO PROCEDURES, CARDIO UTP UTP [id number] [facility] 2019-04-14 10:44:44 2019-04-15 23:59:59 Outpatient [facility] MG [id number] 2019-04-10 10:25:00 2019-04-10 23:59:00 Outpatient Estephania Coelho [facility] [id number] 2019-04-10 14:40:00 2019-04-10 14:40:00 Appointment; TIEN COELHO M.D. DHOBLE, ABHIJEET, M.D. [facility] Cardiothoracic & Vascular [facility] [id number] [facility] ns 2019-04-10 10:25:00 2019-04-10 10:25:00 Outpatient [facility] CAR [id number] [facility] 2019-03-20 15:00:00 2019-03-20 15:00:00 Appointment; TIEN COELHO M.D. DHOBLE, ABHIJEET, M.D. [facility] [id number] [facility] 2019-03-20 14:00:00 2019-03-20 14:00:00 Appointment; TIEN COELHO M.D. DHOBLE, ABHIJEET, M.D. [facility] [id number] [facility] 2019-03-04 09:15:00 2019-03-04 13:30:00 Outpatient Eugenie Rojas [facility] [id number] 2019-03-04 09:15:00 2019-03-04 09:15:00 Outpatient [facility] [address] [place] [address] 2019-02-16 15:32:00 2019-02-16 18:05:00 Departed Emergency Room [facility] [id number] [facility] 2019-01-30 14:56:39 2019-01-30 17:00:00 Outpatient Li Hurley [facility] [id number] 2018-12-10 11:00:00 2018-12-10 23:59:59 Outpatient Mohini Dee [facility]G [facility] [id number] 2018-11-25 16:32:11 2018-11-26 23:59:59 Outpatient [facility] [id number] 2018-09-03 10:15:00 2018-09-03 23:59:59 Outpatient Mohini Dee [facility]G [facility] [id number] 2018-08-13 14:13:00 2018-08-14 23:59:59 Outpatient [facility] [id number] 2018-08-12 10:15:00 2018-08-12 10:15:00 Outpatient Mohini Dee [facility]G [facility] [id number] 2018-07-03 11:00:00 2018-07-03 11:00:00 Outpatient Mohini Dee [facility]G [facility] [id number] 2018-07-03 11:00:00 2018-07-03 11:00:00 Outpatient Mohini Dee [facility]G [facility] [id number] 2018-07-01 09:07:00 2018-07-02 23:59:59 Outpatient [facility] [id number] 2018-07-01 09:07:00 2018-07-02 23:59:59 Outpatient [facility] [id number] 2018-06-17 16:52:00 2018-06-18 23:59:59 Outpatient [facility] [id number] 2018-06-17 16:52:00 2018-06-18 23:59:59 Outpatient [facility] [id number] 2018-05-02 12:00:00 2018-05-02 23:59:59 Outpatient Mohini Dee HMG [facility] [id number] 2018-04-03 11:30:00 2018-04-03 23:59:59 Outpatient Mohini Dee [facility] [id number] 2018-02-25 12:55:00 2018-02-26 17:40:00 Outpatient Jennifer Enamorado MHSE MHSE [id number] 2018-01-31 14:49:00 2018-02-01 23:59:59 Outpatient [facility] [id number] 2018-01-01 14:30:00 2018-01-01 23:59:59 Outpatient Mohini Dee HMG [facility] [id number] 2017-12-30 15:08:00 2017-12-31 23:59:59 Outpatient [facility] [id number] 2017-12-20 16:30:00 2017-12-21 23:59:59 Outpatient [facility] [id number] 2017-11-05 12:15:00 2017-11-06 23:59:59 Outpatient [facility] [id number] 2017-10-24 10:15:00 2017-10-24 10:15:00 Outpatient Mohini Dee HMG [facility] [id number] 2017-10-07 15:47:00 2017-10-08 23:59:59 Outpatient MHMG [facility] [id number] 2017-10-01 15:29:00 2017-10-02 23:59:59 Outpatient MH[facility] [id number] 2017-10-01 15:29:00 2017-10-02 23:59:59 Outpatient MHMG [facility] [id number] 2017-07-11 11:45:00 2017-07-11 23:59:59 Outpatient Mohini Dee HMG [facility] [id number] 2017-07-05 10:30:00 2017-07-05 23:59:59 Outpatient Mohini Dee HMG [facility] [id number] 2017-07-05 10:30:00 2017-07-05 23:59:59 Outpatient Mohini Dee HMG [facility] [id number] 2017-06-26 15:22:00 2017-06-27 23:59:59 Outpatient [facility] [id number] 2017-06-26 15:22:00 2017-06-27 23:59:59 Outpatient MHMG [facility] [id number] 2017-06-25 12:18:00 2017-06-26 23:59:59 Outpatient MHMG [facility] [id number] 2017-06-21 09:15:00 2017-06-21 23:59:59 Outpatient Mohini Dee HMG [facility] [id number] 2017-05-14 10:16:00 2017-05-14 23:59:00 Outpatient Mohini Dee [facility] [place] [id number] 2014-11-28 17:02:00 2014-12-01 14:23:00 Outpatient Amadeo Foster IE [place] [id number] Results Test Description Test Time Test Comments Results Result Comments Source CARDIAC ENZYMES 2019-07-07 18:06:00 <0.02 [facility] CARDIAC ENZYMES 2019-07-07 13:35:00 <0.02 [facility] [place] CHEM PANEL 2019-07-07 13:35:00 160 [facility] [place] CHEM PANEL 2019-07-07 13:35:00 28 [facility] [place] CHEM PANEL 2019-07-07 13:35:00 0.94 [facility]M PANEL 2019-07-07 13:35:00 [facility]-07-07 13:35:00 [facility] [place] [facility] 2019-07-07 13:35:00 [facility] [place] [facility] PANEL 2019-07-07 13:35:00 [facility] 2019-07-07 13:35:00 9.7 [facility] [place] CHE[facility] PANEL 2019-07-07 13:35:00 9.2 [facility] 2019-07-07 13:35:00 60 [facility] [place] CHEM PANEL 2019-07-07 13:35:00 7.4 [facility] 2019-07-07 13:35:00 3.5 [facility] 2019-07-07 13:35:00 [facility] 2019-07-07 13:35:00 [facility] Ag CHEM PANEL 2019-07-07 13:35:00 94 [facility] [place] CHEM PANEL 2019-07-07 13:35:00 0.5 [facility] [place] CHEM PANEL 2019-07-07 13:35:00 0.1 [facility] 2019-07-07 13:35:00 3.9 [facility] 2019-07-07 13:35:00 Test Item A/G Ratio (test code = A/G Ratio) 0.9 1 0.7-1.6 [facility] [id number] 13:35:000.4[facility]ann[facility]M PANEL 2019-07-07 13:35:001.9[facility]annCHEM ATZMZ8878-30-82 13:35:003.4[facility] CuxspctUHLZORIOVS0842-48-87 13:35:004.1[facility] PaaeyjkEYFIKMZFYA9130-01-91 13:35:003.39[facility] CpurzcdJXEEBNOGJU8054-53-91 13:35:007.9[facility] [place] HUCPODXVFY2085-74-40 13:35:0025.2[facility] SnwcrabOYYBRFPNBQ2755-12-48 13:35:00 74.1[facility] UzcyylhCJLGIHKYRX4952-54-81 13:35:00* Test Item Value Reference Range Interpretation Comments MCH (test code = MCH) 23.4 pg 27.0-31.0 [facility] KeliadmRIZUAYJINA6663-44-92 13:35:0031.6[facility]annHEMATOLOGY 2019-07-07 13:35:0018.3[facility] DsywwtsGEKRPWMXGX0008-23-53 13:35:82999Pvwbjuso HquwxgfKCVXHKCPBQ2066-37-39 13:35:008.8[facility] VmjdbvqSSEKPZWZTR6553-88-68 13:35:00* Test Item Value Reference Range Interpretation Comments PT (test code = PT) 26.3 s 12.0-14.7 [facility] QgjvzfpPRXXWGZDKX3541-00-35 13:35:00* Test Item Value Reference Range Interpretation Comments INR (test code = INR) 2.37 1 0.85-1.17 [facility] GuunukkRBFKXURXTQ8917-51-41 13:35:00* Test Item Value Reference Range Interpretation Comments PTT (test code = PTT) 48.5 s 22.9-35.8 [facility] DapjslrOBMDOFXSFN1386-00-64 13:35:0057.7[facility]annHEMATOLOGY 2019-07-07 13:35:0028.4[facility] RkykzkxRPXLWMJSQX2085-02-84 13:35:008.9[facility] GomqcenDHVRKCJEOB0822-38-63 13:35:004.5[facility] AwmkrwlCLOXDYVFIV6820-51-12 13:35:000.5[facility] CgwihidFXNOLTIMHX4495-67-66 13:35:002.4[facility] [place] UVTNRXTLCO7551-31-54 13:35:001.2[facility] BamqzmbEJJIJOCYQA1328-15-39 13:35:000.4 [facility] LdxzqhwCGUCEDHLQD3670-99-71 13:35:000.2[facility]annHEMATOLOGY 2019-07-07 13:35:001+ *ABN*(07/07/19 7:35 AM)[facility] ENZYMES 2019-07-07 01:45:0066[facility]AC YBGCBOB7461-77-55 01:45:00<0.02 [facility] MVLNACY4732-59-58 01:45:04371Psvajbqq HermannCHEM PANEL 2019-07-07 01:45:56530Aodhctpf HermannCHEM ULPRO9020-65-20 01:45:0028[facility]annCHEM FREFH3391-88-49 01:45:001.13[facility]annCHEM VCPIE2171-13-18 01:45:17256Qgdugzfm HermannCHEM YPPRN3218-25-98 01:45:004.4[facility]annCHEM CNJKG4891-29-27 01:45:62121Lmukxarv HermannCHEM QDXNT2481-52-90 01:45:0027 [facility]annCHE[facility] FDOGB2403-08-64 01:45:008.8[facility]annCHEM PANEL 2019-07-07 01:45:007.9[facility]annCHEM GGMRB8952-22-75 01:45:003.7[facility]annCHEM YJLSD9739-00-80 01:45:0018[facility]annCHEM CUBOU0618-02-34 01:45:0017[facility]annCHEM BQSGO6304-97-62 01:45:39345Qbthnpqw HermannCHEM VPMUM4060-04-38 01:45:000.5[facility]annCHEM RMCMN5208-41-88 01:45:0011.4 [facility]annCHE[facility] SLDGK9880-04-81 01:45:00* Test Item Value Reference Range Interpretation Comments B/C Ratio (test code = B/C Ratio) 25 1 6-25 [facility]CHE[facility] VGYSR9585-01-71 01:45:004.2[facility]annCHEM PANEL 2019-07-07 01:45:00* Test Item Value Reference Range Interpretation Comments A/G Ratio (test code = A/G Ratio) 0.9 1 0.7-1.6 [facility]annCHE[facility] HCXWZ5062-95-38 01:45:0048[facility]annCHEM PANEL 2019-07-07 01:45:001.9[facility] TlxmtxyYNVOMINSFI8987-28-69 01:45:005.1[facility] IlwzytuJVLHGBANDE0016-42-20 01:45:003.58[facility] FyeviliNNZHRLDHOQ2444-76-34 01:45:008.4[facility] QyfmgxcJRBVHNREPM9536-07-06 01:45:0026.6[facility] Ag YMAIAXYSSH3302-43-21 01:45:0074.2[facility] YucrmtdDWHESWGSSQ2765-12-97 01:45:00* Test Item Value Reference Range Interpretation Comments MCH (test code = MCH) 23.3 pg 27.0-31.0 [facility] FwkjlrqGNBUAXGQGU3278-63-40 01:45:0031.5[facility] HermannHEMATOLOGY 2019-07-07 01:45:0018.3[facility]orial PqnlgogDUJNQHXPGU4980-33-82 01:45:83952Ifejuyzi NbtkcegOXBKSSSBWE9065-04-68 01:45:008.9[facility] HcufduiORVMYLUYRB0574-99-82 01:45:00* Test Item Value Reference Range Interpretation Comments PT (test code = PT) 24.2 s 12.0-14.7 [facility] ExfndmcWGWFTDPVCX2673-79-42 01:45:00* Test Item Value Reference Range Interpretation Comments INR (test code = INR) 2.13 1 0.85-1.17 [facility] FqcvquqIQWEWUROLU7835-63-37 01:45:00* Test Item Value Reference Range Interpretation Comments PTT (test code = PTT) 47.2 s 22.9-35.8 [facility] QsuukwcBSOZWFMMKE1976-64-68 01:45:0060.4[facility]annHEMATOLOGY 2019-07-07 01:45:0026.4[facility] YukafyrDPPBKVCISX4313-83-87 01:45:008.4[facility] SdmoycqSRHVQJSXHN6142-45-60 01:45:004.2[facility] VzqvglxWGFVQPXKHE7090-72-05 01:45:000.6[facility] ZzkiszfDUNHJZFKLF1169-92-44 01:45:003.1[facility] Ag XPRWYUGMYN5557-64-01 01:45:001.3[facility] PtdtkxsSDIQGKUGNP4813-08-25 01:45:000.4 [facility] AcffhmyMOIHRYCOCC4372-51-66 01:45:000.2[facility]annHEMATOLOGY 2019-07-07 01:45:001+ *ABN*(07/06/19 7:45 PM)[facility]annCHEM STSMT4378-46-72 08:45:42654Zlhvrzhu HermannCHEM KCKYX8470-78-57 08:45:0023[facility]annCHEM APOMY2212-92-66 08:45:000.88[facility]annCHEM OXBLI8568-11-25 08:45:29399 [facility]annCHEM FVVFE7036-51-32 08:45:004.0[facility]annCHEM PANEL 2019-05-01 08:45:36884Jnelmipu HermannCHEM EFWSF4204-67-34 08:45:0024[facility]annCHEM ANPSY0882-17-56 08:45:0011.0[facility]annCHEM YDMHR6902-70-77 08:45:008.6[facility]annCHEM QGFNF6539-70-12 08:45:0065[facility]annCHEM XHIAG1816-16-08 08:45:002.3[facility] NpsoexwHCONZMPVEH1091-05-28 08:45:0065.7 [facility] VzwprfsTOYGSEZVGE9320-29-99 08:45:0023.2[facility]annHEMATOLOGY 2019-05-01 08:45:008.8[facility] QormhbjZUHSFOTFCJ7004-76-08 08:45:001.7[facility] JdfxlpqCZWXWIYNBA2376-87-17 08:45:000.6[facility] XlzfricGGVEEEOONM4605-20-09 08:45:003.1[facility] JogdakdNVXIATQJMV0730-06-03 08:45:001.1[facility] [place] AFJNQEIOVF8337-83-45 08:45:000.4[facility] GtqdfzxYGOQZYHRLX0896-79-79 08:45:000.1 [facility] RgjzzrwTFPCAJJVIX6729-47-45 08:45:002+ *ABN*(05/01/19 2:45 AM)[facility] GzedxedRNTDIRUVXY5472-47-51 08:45:004.7[facility] EjnqcgbKGOKMBZXCS2730-70-92 08:45:003.32[facility] TjrzmbbQKZLYWZAWC7837-36-14 08:45:007.7[facility] BOLRHAEZWW4136-11-45 08:45:0023.6[facility] CushtauTUNGTOKMXY7587-78-73 08:45:00 71.2[facility] XceohdsBEKAUNRSJO5324-03-94 08:45:00* Test Item Value Reference Range Interpretation Comments MCH (test code = MCH) 23.3 pg 27.0-31.0 [facility] OtbhfpfFLAFOUFSLI6744-67-62 08:45:0032.7[facility] HermannHEMATOLOGY 2019-05-01 08:45:0020.1[facility] ImwoicqFFDSJXNXVY3788-27-29 08:45:74421Rdzgthkb WfuyccmOZRLLAWZCD8328-96-16 08:45:009.0[facility] YgaloomXSRHWDREGB3665-73-01 08:45:00* Test Item Value Reference Range Interpretation Comments PT (test code = PT) 15.8 s 12.0-14.7 [facility] YjwjpgcMQQHHOGQWI2880-85-63 08:45:00* Test Item Value Reference Range Interpretation Comments INR (test code = INR) 1.29 1 0.85-1.17 [facility] QfcwtppLJKAXFFIKK8680-73-70 08:45:00* Test Item Value Reference Range Interpretation Comments PTT (test code = PTT) 52.6 s 22.9-35.8 [place] [facility]annCHEM YOUAA1079-42-98 23:18:0073[facility] HermannCHEM PANEL 2019-04-30 23:18:0025[facility] HermannCHEM NBTRS3908-22-00 23:18:000.88[facility] HermannCHEM DFILI1464-76-39 23:18:93412Jlkraxom HermannCHEM ADEXW5304-24-78 23:18:003.7[facility] HermannCHEM TIYEF3674-71-97 23:18:09857Kcgqeoea HermannCHEM GSMIJ6945-85-06 23:18:0028[facility] HermannCHEM TTVOQ4177-58-69 23:18:008.6 [facility]annCHEM YMUAX9502-24-28 23:18:0065[facility] HermannCHEM PANEL 2019-04-30 23:18:0010.7[facility] HermannCHEM KEWVK9970-63-17 23:18:001.9[facility] RhjgtxrUBEEOGRFTH0180-58-26 23:18:004.6[facility] WmwivkvHYXWJEDRWF7926-24-48 23:18:003.29[facility] TzrkqlgMNJBZDNGTD1570-68-33 23:18:007.5[facility] YCYCAPYRQX5058-54-75 23:18:0023.5[facility] FrqrjnaAQCANCZPVT1772-41-97 23:18:00 71.2[facility] UoddqbgSXLQPXAUOE7093-23-78 23:18:00* Test Item Value Reference Range Interpretation Comments MCH (test code = MCH) 22.8 pg 27.0-31.0 [facility]udaYtqggybFSSJIWGXXM0677-83-06 23:18:0032.1[facility] HermannHEMATOLOGY 2019-04-30 23:18:0020.3[facility] PodisadHJRINFHXGE1734-65-89 23:18:30176Cdfsigga HohloirWTXYHHEVEK8827-10-62 23:18:009.2[facility] WcgutcxXGTCLCOPEH8599-81-41 23:18:00* Test Item Value Reference Range Interpretation Comments PT (test code = PT) 15.8 s 12.0-14.7 [facility] BudaGaxcpcqQWQKQMTBZM6085-79-65 23:18:00* Test Item Value Reference Range Interpretation Comments INR (test code = INR) 1.29 1 0.85-1.17 [facility] BudaSvgaudlYPYUJPMXPY7273-54-05 23:18:00* Test Item Value Reference Range Interpretation Comments PTT (test code = PTT) 50.1 s 22.9-35.8 [facility] JoknvvgXYDRBSWJNU2296-68-37 23:18:0058.9[facility] HermannHEMATOLOGY 2019-04-30 23:18:0028.1[facility] FzcvgzbKIZDCKXNNQ5362-32-53 23:18:007.3[facility] HoqddkqLBPHDMMOOE2028-15-72 23:18:005.2[facility] AalezbdWTUWQVGIZR2325-60-13 23:18:000.5[facility] JgtlywpKHFSYMDACJ5804-88-10 23:18:002.7[facility] JGBKIUHUGM2288-40-18 23:18:001.3[facility] AmdnsyoDTOKKWSGCQ4053-75-31 23:18:000.3 [facility] CvxaguvXVGGQYPTYT8959-48-57 23:18:000.2[facility] HermannHEMATOLOGY 2019-04-30 23:18:002+ *ABN*(04/30/19 5:18 PM)[facility] HermannPARATHYROID PROFILE 2019-04-30 23:18:001.03[facility] HermannPARATHYROID KSUPORO8366-53-86 23:18:00 1.03[facility] HermannBLOOD BANK TQSTSYK2631-94-55 16:01:00Negative (04/30/19 10:01 AM)[facility] HermannCARDIAC HZRECVC6924-16-93 16:01:44626Qggkuift HermannCHEM FMWLJ7814-82-80 16:01:002.3[facility] XeuzqyePAYJVBJXXDKO1266-94-93 16:01:0013.9 [facility] XnwcbdhQBDEHVRIXVJY0560-21-61 16:01:00* Test Item Value Reference Range Interpretation Comments B/C Ratio (test code = B/C Ratio) 31 1 6-25 [facility] EnorfqhQXTOJLKEYHXV1125-28-03 16:01:004.0[facility] HermannELECTROLYTES 2019-04-30 16:01:00* Test Item Value Reference Range Interpretation Comments A/G Ratio (test code = A/G Ratio) 1.0 1 0.7-1.6 [facility] PbthwquXMFTHKFYQGWT7253-70-04 16:01:0069[facility] HermannELECTROLYTES 2019-04-30 16:01:0030[facility] PdkiaslUZUCVHKXKLFX8976-28-31 16:01:000.97[facility] GwnivykPTCDOWAUSWLO3903-34-89 16:01:93753Lwylyrtb VgoxlixPJRXZUFZXHUH9883-13-18 16:01:003.9[facility] CssjyzoMWRDLJESMBPO4707-25-61 16:01:80038Niyqjvho Ag BEOOEDJRAUFN8754-30-60 16:01:0029[facility] PapmoneZEFTZYOTYJDF4291-70-55 16:01:00 9.8[facility] KaiysmeQVQCBBFBFIXV2586-37-97 16:01:0058[facility] HermannELECTROLYTES 2019-04-30 16:01:0021[facility] QvqvzpxRFWYMTRLLNHB0670-13-73 16:01:004.2[facility] TmjtygnYGMMUHTLUWSG1436-61-66 16:01:0091[facility] UseyatvKDGMNSAQUECG8167-03-96 16:01:000.8[facility] HniinvxGHBEDYSNHLCJ2363-68-61 16:01:008.2[facility] ALLBRRVEGJME9624-94-13 16:01:0029[facility] NrcfedkUYLHJGCLCS5682-62-18 16:01:00 5.8[facility] JnvjjzsUCXFRYFOBX0280-15-91 16:01:004.00[facility] HermannHEMATOLOGY 2019-04-30 16:01:009.1[facility] UhbgbcaBCLGHXMQEW6834-02-13 16:01:0028.5[facility] YrqvmjoBPAHLRTROB7957-28-25 16:01:0071.2[facility] OxzfpudJQSQIEMPJE7424-12-61 16:01:00* Test Item Value Reference Range Interpretation Comments MCH (test code = MCH) 22.7 pg 27.0-31.0 [facility] AvheameMJTZJMUXES1452-84-04 16:01:0031.9[facility] HermannHEMATOLOGY 2019-04-30 16:01:0020.6[facility] VzbbwqgCRHDVRZHIP5749-78-93 16:01:61724Jxhuqnqn YsxlzkhSMTAEOCPTJ0526-90-55 16:01:009.0[facility] IpkgviyEFJDIQPTKZ7676-76-48 16:01:00* Test Item Value Reference Range Interpretation Comments PT (test code = PT) 14.4 s 12.0-14.7 [facility] AubskdiHXRYSWYUAJ9629-02-97 16:01:00* Test Item Value Reference Range Interpretation Comments PTT (test code = PTT) 47.4 s 22.9-35.8 [facility] WccuuqvCGSIQIXZVI6443-82-32 16:01:00* Test Item Value Reference Range Interpretation Comments INR (test code = INR) 1.14 1 0.85-1.17 [facility] PxzyqruKIBSEYMVXD7336-93-74 16:01:0070.3[facility] HermannHEMATOLOGY 2019-04-30 16:01:0020.3[facility] AhfzpjmFWJHVXKJKN7479-45-28 16:01:008.0[facility] PblcgsgOXFRHOPZLQ6022-30-94 16:01:000.9[facility] ZkjxleeNAUSKHTELK6524-60-23 16:01:000.5[facility] MzuvtjuRMZYJCDPNZ2518-52-17 16:01:004.1[facility] Ag QKFFLNFGIR6319-11-20 16:01:001.2[facility] GlskpooYHEJRTPWBV9002-26-57 16:01:000.5 [facility] DcrxbfhJJARMYEAYV7981-06-68 16:01:000.1[facility] HermannHEMATOLOGY 2019-04-30 16:01:002+ *ABN*(04/30/19 10:01 AM)[facility] HermannURINE AND STOOL 2019-04-30 16:01:00Yellow *NA*(04/30/19 10:01 AM)[facility] HermannURINE AND STOOL 2019-04-30 16:01:00Clear (04/30/19 10:01 AM)[facility] HermannURINE AND STOOL 2019-04-30 16:01:00* Test Item Value Reference Range Interpretation Comments UA Spec Grav (test code = UA Spec Grav) 1.018 1 [facility]annURINE AND ZSQPT4252-78-70 16:01:00* Test Item Value Reference Range Interpretation Comments UA pH (test code = UA pH) 8.0 1 5.0-8.0 [facility]annURINE AND IJMMY4733-69-64 16:01:00Negative *NA*(04/30/19 10:01 AM)[facility]annURINE AND YJTNZ2099-44-06 16:01:00Negative (04/30/19 10:01 AM) [facility]UR[facility] AND HUYEM2368-35-13 16:01:004.0[facility]annURINE AND RGYAZ7045-29-84 16:01:00Negative (04/30/19 10:01 AM)[facility]annURINE AND NTFIV5486-22-14 16:01:00Negative (04/30/19 10:01 AM)[facility] StoryToysannBLOOD BANK DAGHBZF8929-91-82 15:56:00Product available (04/30/19 9:56 AM)[facility] BLOOD BANK YBHGAJV0253-60-44 15:56:00Product available (04/30/19 9:56 AM)[facility] HermannCHEM DTPVU8445-05-23 19:27:000.9[facility] HermannCHEM ZONRI6568-16-33 19:27:0064[facility] HermannCTA Chest/Abd/Pelvis TAVR [id number] 11:33:00 EXAM: VIR CT angiogram thorax abdomen [...] was dictated by a Radiology Resi dent/Fellow/Physician [employer] Checker. Ihave personallyreviewed the images as well as the interpretation and agree with the findings.Read by: Anthony Holm MD Resident/Fellow/PhysicianAssistant: Anthony Holm MDDictated Date/time: 04/10/19 17:53Electronically Signed by: Mahesh Singh MD 04/12/1913:59FINAL REPORTUnAlta View Hospital PhysiciansKSA Heart/Coronary art TAVR [id number] 11:33:00EXAM: CTA HEART WITH CONTRASTDATE: 04/10/2019 11:33 CSTINDICATION: - aortic stenosis. Aortic stenosis, TAVR candidate.COMPARISON: No prior CT heart available for comparison.TECHNIQUE:Contrast imaging was performed on a [employer] [address] scannerutilizing a single breath hold, at 780 mA and 100 kVp. Retrospec tive ECG gatingwas performed, at a heart rate of 60 bpm. Images were reformatted at 0.5 mmintervals and sent to the [employer] workstation for interpretation of bothsystolic and diastolic phases.IV contrast: 90 mL of Visipaque 320 contrast w as delivered intravenously at 5.0mL/sec followed by a 50 mL normal saline bolus chaser.DLP: 2078.1 mGy-cmSTUDY QUALITY: DiagnosticFINDINGS:Aortic root landmarks (dimensions determined in systolic phases)Aortic valve: Trifleaflet: Symmetricc alcified; bulky leaflet: No;right/left/noncoronaryAortic annulus: 28.3 x 23.1 mm ; average 24.2 mm; area 4.61 sq cm; bogypubppobcs07.5 mmSino-tubular junction: 3 2.6 x 28.8 mm; [...] 14:13Electronically Signed by: Elva Whitney MD 04/14/1912:00FINAL REPORTUnDelta Community Medical CenterATOLOGY 2019-03-04 14:46:00* Test Item Value Reference Range Interpretation Comments PT (test code = PT) 16.2 s 12.0-14.7 [facility] SouthNkmcpssPNAURBKMOV5458-20-48 14:46:00* Test Item Value Reference Range Interpretation Comments INR (test code = INR) 1.33 1 0.85-1.17 [facility] SouthYlgtbhhNFOGNLAVJV1016-43-19 14:46:00* Test Item Value Reference Range Interpretation Comments PTT (test code = PTT) 54.3 s 22.9-35.8 [facility]2019-09-23 16:51:00* Test Item Value Reference Range Interpretation Comments Sodium Level (test code = 2951-2) 135 136-145 L [facility] CenterPotassium Ozain1000-03-19 16:51:00* Test Item Value Reference Range Interpretation Comments Potassium Level (test code = 2823-3) 4.6 3.5-5.1 [facility] CenterChloride Gsann3720-03-09 16:51:00* Test Item Value Reference Range Interpretation Comments Chloride Level (test code = 2075-0) 101 98-107 [facility] CenterCarbon Dioxide Cdqnz7025-81-70 16:51:00* Test Item Value Reference Range Interpretation Comments Carbon Dioxide Level (test code = 2028-9) 25 22-29 [facility] CenterAnion Fcg9758-56-98 16:51:00* Test Item Value Reference Range Interpretation Comments Anion Gap (test code = 24892-1) 13.6 8-16 [facility] CenterBlood Urea Msxnbjez0055-26-14 16:51:00* Test Item Value Reference Range Interpretation Comments Blood Urea Nitrogen (test code = 3094-0) 29 7-26 H [facility] CenterCreatinine2019-09-23 16:51:00* Test Item Value Reference Range Interpretation Comments Creatinine (test code = 2160-0) 1.02 0.57-1.11 [facility] CenterBUN/Creatinine Mymvz5752-62-28 16:51:00* Test Item Value Reference Range Interpretation Comments BUN/Creatinine Ratio (test code = 3097-3) 28 6-25 H [facility] CenterEstimat Glomerular Filtration Rate 2019-02-16 16:51:00* Test Item Value Reference Range Interpretation Comments Estimat Glomerular Filtration Rate (test code = 432357301) 53 >60 L Ranges were taken from the National Kidney Disease Education Program and the [facility] Foundation literature.Reference ranges:60 or greater: Ozuqvj48-29 ( for 3 consecutive months): Chronic kidney disease 15 or less: Kidney failureVal Verde Regional Medical CenterGlucose Qdtvp6562-05-82 16:51:00* Test Item Value Reference Range Interpretation Comments Glucose Level (test code = FTW5139) 100 74-118 [facility] CenterCalcium Ymiqh2351-76-89 16:51:00* Test Item Value Reference Range Interpretation Comments Calcium Level (test code = 39186-4) 9.7 8.4-10.2 [facility] CenterTotal Ulenkucvx8036-91-64 16:51:00* Test Item Value Reference Range Interpretation Comments Total Bilirubin (test code = 1975-2) 0.9 0.2-1.2 [facility] CenterAspartate Amino Transf (AST/SGOT) 2019-02-16 16:51:00* Test Item Value Reference Range Interpretation Comments Aspartate Amino Transf (AST/SGOT) (test code = Aspartate Amino Transf (AST/SGOT)) 23 5-34 [facility] CenterAlanine Aminotransferase (ALT/SGPT) 2019-02-16 16:51:00* Test Item Value Reference Range Interpretation Comments Alanine Aminotransferase (ALT/SGPT) (test code = 1742-6) 14 0-55 [facility] CenterTotal Wshmvsi1799-48-25 16:51:00* Test Item Value Reference Range Interpretation Comments Total Protein (test code = 2885-2) 7.9 6.5-8.1 [facility] CenterAlbumin2019-09-23 16:51:00* Test Item Value Reference Range Interpretation Comments Albumin (test code = 1751-7) 3.9 3.5-5.0 [facility] CenterGlobulin2019-09-23 16:51:00* Test Item Value Reference Range Interpretation Comments Globulin (test code = 96990-6) 4.0 2.3-3.5 H [facility] CenterAlbumin/Globulin Rjhxl6957-22-15 16:51:00 * Test Item Value Reference Range Interpretation Comments Albumin/Globulin Ratio (test code = 1759-0) 1.0 0.8-2.0 [facility] CenterAlkaline Hovxrehpnzz0534-07-15 16:51:00* Test Item Value Reference Range Interpretation Comments Alkaline Phosphatase (test code = 6768-6) 100 40-150 [facility] CenterProthrombin Rbqi9493-42-41 16:42:00* Test Item Value Reference Range Interpretation Comments Prothrombin Time (test code = 5902-2) 23.7 11.9-14.5 H [facility] CenterProthromb Time International Ratio 2019-02-16 16:42:00* Test Item Value Reference Range Interpretation Comments Prothromb Time International Ratio (test code = 6301-6) 2.04 Oral Anticoagulant Therapy INR Values:1. Low Intensity Therapy 1.5 - 2.02 . Moderate Intensity Therapy 2.0 - 3.03. High Intensity Therapy(1) 2.5 - 3. 54. High Intensity Therapy(2) 3.0 - 4.05. Panic Value INR > 5.0 [facility] CenterActivated Partial Thromboplast Time 2019-02-16 16:42:00* Test Item Value Reference Range Interpretation Comments Activated Partial Thromboplast Time (test code = 20904-9) 48.6 23.8-35.5 H [facility] CenterWhite Blood Zkwgb2754-77-70 16:36:00* Test Item Value Reference Range Interpretation Comments White Blood Count (test code = 6690-2) 5.47 4.8-10.8 [facility] CenterRed Blood Sukhs8733-82-71 16:36:00* Test Item Value Reference Range Interpretation Comments Red Blood Count (test code = 789-8) 3.88 3.6-5.1 [facility] CenterHemoglobin2019-09-23 16:36:00* Test Item Value Reference Range Interpretation Comments Hemoglobin (test code = 18844-0) 8.2 12.0-16.0 L [facility] CenterHematocrit2019-09-23 16:36:00* Test Item Value Reference Range Interpretation Comments Hematocrit (test code = 4544-3) 27.6 34.2-44.1 L [facility] CenterMean Corpuscular Mamafj4130-13-25 16:36:00* Test Item Value Reference Range Interpretation Comments Mean Corpuscular Volume (test code = 787-2) 71.1 81-99 L [facility] CenterMean Corpuscular Fdpyupcsef7151-09-14 16:36:00* Test Item Value Reference Range Interpretation Comments Mean Corpuscular Hemoglobin (test code = 785-6) 21.1 28-32 L [facility] CenterMean Corpuscular Hemoglobin Concent 2019-02-16 16:36:00* Test Item Value Reference Range Interpretation Comments Mean Corpuscular Hemoglobin Concent (test code = 786-4) 29.7 31-35 L [facility] CenterRed Cell Distribution Wtfyy7692-77-18 16:36:00* Test Item Value Reference Range Interpretation Comments Red Cell Distribution Width (test code = 92371-3) 18.6 11.7 -14.4 H [facility] CenterPlatelet Fmran6490-50-61 16:36:00* Test Item Value Reference Range Interpretation Comments Platelet Count (test code = 777-3) 170 140-360 [facility] CenterNeutrophils (%) (Auto)2019-02-16 16:36:00 * Test Item Value Reference Range Interpretation Comments Neutrophils (%) (Auto) (test code = 07313-4) 66.3 38.7-80.0 [facility] CenterLymphocytes (%) (Auto)2019-02-16 16:36:00 * Test Item Value Reference Range Interpretation Comments Lymphocytes (%) (Auto) (test code = 736-9) 21.9 18.0-39.1 [facility] CenterMonocytes (%) (Auto)2019-02-16 16:36:00* Test Item Value Reference Range Interpretation Comments Monocytes (%) (Auto) (test code = 5905-5) 6.9 4.4-11.3 [facility] CenterEosinophils (%) (Auto)2019-02-16 16:36:00 * Test Item Value Reference Range Interpretation Comments Eosinophils (%) (Auto) (test code = 713-8) 4.0 0.0-6.0 [facility] CenterBasophils (%) (Auto)2019-02-16 16:36:00* Test Item Value Reference Range Interpretation Comments Basophils (%) (Auto) (test code = 706-2) 0.5 0.0-1.0 [facility] CenterIM GRANULOCYTES %2019-02-16 16:36:00* Test Item Value Reference Range Interpretation Comments IM GRANULOCYTES % (test code = IM GRANULOCYTES %) 0.4 0.0- 1.0 [facility] CenterNeutrophils # (Auto)2019-02-16 16:36:00* Test Item Value Reference Range Interpretation Comments Neutrophils # (Auto) (test code = 751-8) 3.6 2.1-6.9 [facility] CenterLymphocytes # (Auto)2019-02-16 16:36:00* Test Item Value Reference Range Interpretation Comments Lymphocytes # (Auto) (test code = 15785-0) 1.2 1.0-3.2 [facility] CenterMonocytes # (Auto)2019-02-16 16:36:00* Test Item Value Reference Range Interpretation Comments Monocytes # (Auto) (test code = 742-7) 0.4 0.2-0.8 [facility] CenterEosinophils # (Auto)2019-02-16 16:36:00* Test Item Value Reference Range Interpretation Comments Eosinophils # (Auto) (test code = 711-2) 0.2 0.0-0.4 [facility] CenterBasophils # (Auto)2019-02-16 16:36:00* Test Item Value Reference Range Interpretation Comments Basophils # (Auto) (test code = 704-7) 0.0 0.0-0.1 [facility] CenterAbsolute Immature Granulocyte (auto 2019-02-16 16:36:00* Test Item Value Reference Range Interpretation Comments Absolute Immature Granulocyte (auto (teresa t code = Absolute Immature Granulocyte (auto) 0.02 0-0.1 [facility] CenterCARDIAC SIJIFPD6592-15-38 20:17:00<0.02 [facility] SlrskfzIBJZQSUAUHAN1375-56-45 20:17:0011.6[facility] HermannELECTROLYTES 2019-01-30 20:17:00* Test Item Value Reference Range Interpretation Comments B/C Ratio (test code = B/C Ratio) 27 1 6-25 [facility] QsafngoXTPOJFNPKDEQ6412-85-87 20:17:004.0[facility] HermannELECTROLYTES 2019-01-30 20:17:00* Test Item Value Reference Range Interpretation Comments A/G Ratio (test code = A/G Ratio) 1.0 1 0.7-1.6 [facility] BezzzjbFZUPWHYSOLQC6118-91-46 20:17:0099[facility] HermannELECTROLYTES 2019-01-30 20:17:0030[facility] OyydupuKJSREFHZOJYZ1238-14-38 20:17:001.10[facility] PmqqmwvYOKJXSQOHRJL6986-91-16 20:17:80863Madenxkt IwswsalKRZDRXZUZEJJ7908-25-68 20:17:004.6[facility] LvqddjvXKJFGAZKSSXD8339-29-22 20:17:97160Bl[place]bxl [place] TVNZLSKMAUSK4594-08-34 20:17:0027[facility] PwcnxheTZSJOVRRSPBW3963-69-44 20:17:00 9.2[facility] ZqpzeniFXLIOAVLEFKI2557-66-26 20:17:007.9[facility] Ag AYTFHPZPVBCA1390-90-42 20:17:003.9[facility] JmndmdvFWFIDVFLBGKR5475-89-66 20:17:0018[facility] NokmtrjGEMADWANMRGN5648-26-57 20:17:0020[facility] Ag JREFPWYUNKHU1302-95-71 20:17:0091[facility] AqvsgmsGXRCJKUHRTNX2678-42-59 20:17:00 0.7[facility] GzrbccuBSDJSMABCZVZ0840-98-54 20:17:0050[facility] HermannHEMATOLOGY 2019-01-30 20:17:006.1[facility] LaxciumPOTURITYLT7111-58-33 20:17:003.92[facility] QoasykcLCOXKQTLQV5391-38-09 20:17:008.5[facility] GgwtfmcKVYJYGWXIF1859-05-19 20:17:0026.9[facility] UdecgfqUAIMLHZMPG8254-63-48 20:17:0068.7[facility] Ag IPTQWRLEPW6332-45-14 20:17:00* Test Item Value Reference Range Interpretation Comments MCH (test code = MCH) 21.6 pg 27.0-31.0 [facility] VmuwqplZUADCCWFDV0547-54-33 20:17:0031.5[facility] HermannHEMATOLOGY 2019-01-30 20:17:0019.6[facility] BqyihxcWAMKQMVGNS1472-59-35 20:17:02314Xyzmitaw PwunxxlHGRJJZILRL6108-10-87 20:17:009.2[facility] TiimedfFUIUOUTEWS4550-86-79 20:17:00* Test Item Value Reference Range Interpretation Comments PT (test code = PT) 22.0 s 12.0-14.7 [facility] VyoookvJXVTTEXSIT7818-31-06 20:17:00* Test Item Value Reference Range Interpretation Comments INR (test code = INR) 1.97 1 0.85-1.17 [facility] VgndbpkQCZILCHGUD1675-19-85 20:17:00* Test Item Value Reference Range Interpretation Comments PTT (test code = PTT) 49.6 s 22.9-35.8 [facility] PkjlvibTPCPHAHIKK7004-65-81 20:17:00Normal (01/30/19 3:17 PM)[facility] OzrvsmuACUAAWCHWY4259-84-19 20:17:0077.0[facility] LujhwucIFKSJBHYFU1162-18-29 20:17:0016.0[facility] MoqqapcDDITRLCURF0367-86-59 20:17:005.6[facility] Ag UAIDGOVMAX2510-11-48 20:17:000.9[facility] KddvhuhGKQVUYAGLD0567-91-60 20:17:000.5 [facility] VddjpucNACUFJUJDT5701-08-31 20:17:004.7[facility] HermannHEMATOLOGY 2019-01-30 20:17:001.0[facility] VezueozXMRUDTRCHC8342-96-19 20:17:000.3[facility] DjxfyofUYWBBRHLOO1634-67-90 20:17:000.1[facility] NquxzeqKURGTCTHPZ9882-83-87 20:17:001+ *ABN*(01/30/19 3:17 PM)[facility] QpzjtyjCXPSWOFZOB2361-43-26 20:17:003+ *NA*(01/30/19 3:17 PM)[facility] EcqwqcsZZLKDJGZOJ0217-08-34 20:17:001+ (01/30/19 3:17 PM)[facility] HermannURINE AND ABNYQ0171-81-83 20:17:00Yellow *NA*(01/30/19 3:17 PM) [facility]annURINE AND UKSDP9585-09-65 20:17:00Clear (01/30/19 3:17 PM)[facility]annURINE AND YKLWC2615-35-39 20:17:00* Test Item Value Reference Range Interpretation Comments UA Spec Grav (test code = UA Spec Grav) 1.018 1 [facility]annURINE AND VTWHN1692-61-96 20:17:00* Test Item Value Reference Range Interpretation Comments UA pH (test code = UA pH) 6.0 1 5.0-8.0 [facility]annUR[facility] AND PDTPS8474-70-95 20:17:00Negative *NA*(01/30/19 3:17 PM) [facility] BABOS5815-63-45 20:17:00Negative (01/30/19 3:17 PM) [facility] AND HXIVX7532-13-67 20:17:00Negative (01/30/19 3:17 PM) [facility] AND QPXLI3135-80-64 20:17:00Negative (01/30/19 3:17 PM) [facility] AND HSHOO6884-24-43 20:17:00<1[facility]annURINE AND FPCFI8201-90-13 20:17:001[facility]annURINE AND DZXFJ4226-29-35 20:17:001 [facility] JcihhggREBRRFPIHA3037-14-95 11:40:00* Test Item Value Reference Range Interpretation Comments PT (test code = PT) 23.6 s 12.0-14.7 [facility] CjgucjzHCSBBRXACE0225-44-93 11:40:00* Test Item Value Reference Range Interpretation Comments INR (test code = INR) 2.08 1 0.85-1.17 [facility] HermannCHEM UIFSH0899-14-02 08:29:002.1[facility] HermannELECTROLYTES 2018-02-26 08:29:0016.9[facility] KywoyrfWTFJPMFAJVEG8828-16-04 08:29:00* Test Item Value Reference Range Interpretation Comments B/C Ratio (test code = B/C Ratio) 30 1 6-25 [facility] GdpytueHELTISXTZGOO2641-64-13 08:29:004.2[facility] HermannELECTROLYTES 2018-02-26 08:29:00* Test Item Value Reference Range Interpretation Comments A/G Ratio (test code = A/G Ratio) 0.9 1 0.7-1.6 [facility] TfyyoisEOQXEWBNQZUT8658-91-00 08:29:0062[facility] HermannELECTROLYTES 2018-02-26 08:29:0024[facility] ElwwgjvYVDLDXYJEOGU5706-20-34 08:29:58917Xlyiamfw OpljsseSXNMFYUFFNNR7550-60-27 08:29:000.5[facility] GibendeEUUJJZIORVOM3814-32-14 08:29:0027[facility] IwvqxhfXWFBKWBKATSO8126-45-46 08:29:008.9[facility] MNUFGZWIUFZT4345-07-77 08:29:007.8[facility] YwepqliPDTWEHASWDCZ1329-74-00 08:29:003.6[facility] ZxiprxeBFNZXQCDQIDC5425-51-94 08:29:0023[facility] QVJFVKTRAJMR7035-05-92 08:29:0028[facility] DsxuxclZZWJNYDVNVIA8690-89-64 08:29:00 0.93[facility] HkljroaUJKVBEOZSTKA6991-70-19 08:29:89724Epkmpixw Ag IJUDSPNPSHOX6712-06-09 08:29:003.9[facility] YedrheqHABJGGYLFBEO6419-54-26 08:29:34043Xheyefow HnsjagwOBHYGWGRJVGQ0755-02-92 08:29:39493Jpfchpsc [place] MMGZKIEAOX3139-63-39 08:29:00* Test Item Value Reference Range Interpretation Comments MCH (test code = MCH) 25.2 pg 27.0-31.0 [facility] ViasumbQMRHLFYKSQ6009-35-28 08:29:0032.9[facility] HermannHEMATOLOGY 2018-02-26 08:29:0016.6[facility] WojaapoRITPBGSVWH2430-93-98 08:29:76244Bgefrfig DubwyvcRVYVFIPOBL5097-95-50 08:29:0076.7[facility] WsfksixUHGUNTBPMO1621-49-70 08:29:009.2[facility] DnikzqzICORWQFPTO3314-24-95 08:29:005.7[facility] GXNUJABHKA6645-82-87 08:29:0010.3[facility] UvdkpjnCYSESRELQB2463-56-76 08:29:00 4.09[facility] NcytflbNFHWFMESBD7745-52-29 08:29:0031.4[facility]annHEMATOLOGY 2018-02-26 08:29:000.2[facility] WncbwepKUEVQWLJON2604-48-14 08:29:001+ *ABN*(02/26/18 3:29 AM)[facility] NnhqifkXCDIHUKPXM3432-93-47 08:29:0060.1[facility] AhhzfcxNIGTPXSKPV6154-42-64 08:29:0029.8[facility] QdkvatpQOAIWAJSVQ0844-04-75 08:29:000.4[facility] IccnyyzIURRPEGCIF1393-28-67 08:29:003.3[facility] Ag QUVYHRXTCJ7819-31-82 08:29:000.6[facility] TbgklvtLNPZDPVXBY9464-77-93 08:29:003.4 [facility] PzeixxqKNHLIWAURQ3084-41-47 08:29:001.7[facility] HermannHEMATOLOGY 2018-02-26 08:29:006.2[facility] WkczneaSSHLZL4630-81-07 08:29:00* Test Item Value Reference Range Interpretation Comments VLDL (test code = VLDL) 29 1 [facility] CjqwvzfTBJRFV6520-51-42 08:29:0035[facility] CjgjwhhCSBGVL1949-04-16 08:29:0097[facility] KezyvvrIWICQA6021-33-26 08:29:0033[facility] HermannLIPIDS 2018-02-26 08:29:26037Jbcifltn UrvdcvyQIMVFV6386-50-74 08:29:00* Test Item Value Reference Range Interpretation Comments CHD Risk (test code = CHD Risk) 2.94 1 3.90-5.80 [facility] HermannSPECIAL JYRSBBQJB9224-88-77 08:29:008.6[facility] ZQJWWDEUBX3422-74-23 08:29:000.9[facility] AND ZXBUR1712-21-08 00:25:001[facility] AYLAL4269-73-13 00:25:001[facility] URINE AND PWZBD9628-50-13 00:25:001[facility] MHBIP8736-97-23 00:25:002.0[facility] YBJOZ8041-97-75 00:25:00Negative (02/25/18 7:25 PM)[facility] JXLFH3769-06-37 00:25:00Negative *NA*(02/25/18 7:25 PM)[facility] QHGOY7475-29-35 00:25:00Negative (02/25/18 7:25 PM)[facility] XMNEX0304-74-24 00:25:00Negative (02/25/18 7:25 PM) [facility] ZHBPN3855-15-99 00:25:00* Test Item Value Reference Range Interpretation Comments UA pH (test code = UA pH) 5.0 1 5.0-8.0 [facility] GVPEG0912-07-68 00:25:00Yellow *NA*(02/25/18 7:25 PM) [facility] JNHGW8037-41-07 00:25:00Clear (02/25/18 7:25 PM) [facility] BYXKL9621-27-01 00:25:00* Test Item Value Reference Range Interpretation Comments UA Spec Grav (test code = UA Spec Grav) 1.019 1 [facility]annCARDIAC EQUUBNU8089-11-88 22:30:0092[facility]annCARDIAC IKUPMPC9212-58-90 18:36:000.03[facility]annCARDIAC XWVTUUM1385-25-57 18:36:00 58[facility] HermannCHEM AIUMA0190-70-40 18:36:0053[facility] HermannCHEM PANEL 2018-02-25 18:36:000.7[facility] HermannCHEM WHQGK1534-04-20 18:36:0025[facility] HermannCHEM XBPLB7711-86-62 18:36:0031[facility]annCHEM FMYGQ5496-14-81 18:36:23123Gskuxjng HermannCHEM HYDAQ3674-49-33 18:36:008.1[facility] HermannCHEM YEMFD6332-49-72 18:36:0023[facility]annCHEM OJOPO1080-67-14 18:36:003.8 [facility]annCHEM QOLZU7452-78-69 18:36:008.8[facility] HermannCHEM PANEL 2018-02-25 18:36:001.05[facility] HermannCHEM QBJXA1504-47-67 18:36:0024[facility] HermannCHEM CKDLP5934-73-24 18:36:43482Fbpprcil HermannCHEM OJZTV0371-05-37 18:36:004.5[facility] HermannCHEM QOGQV2259-05-70 18:36:69461Oylmtgzk HermannCHEM GTGVP6594-19-37 18:36:68735Teiqlpiq HermannCHEM NWCAC5689-82-08 18:36:0018.5 [facility]annCHEM FZREQ5779-15-52 18:36:00* Test Item Value Reference Range Interpretation Comments B/C Ratio (test code = B/C Ratio) 23 1 6-25 [facility] HermannCHEM DUIXR3459-88-35 18:36:00* Test Item Value Reference Range Interpretation Comments A/G Ratio (test code = A/G Ratio) 0.9 1 0.7-1.6 [facility]annCHEM OBMPZ9430-91-14 18:36:004.3[facility] HermannHEMATOLOGY 2018-02-25 18:36:000.6[facility] UvazjuaJKPOATIKMG1629-36-70 18:36:004.5[facility] MkifocuZAWOFLYUVV8926-05-22 18:36:005.5[facility] FfsnmarEGRYOPPHFU3899-66-16 18:36:0016.2[facility] PdunjcuJLTFNGZAPH9450-75-08 18:36:001.1[facility] ILCGDSHEHT3943-22-43 18:36:000.1[facility] MpjounlEBLQZAEUJG1902-39-95 18:36:000.3 [facility] QcigmtiFYAMTYLVTG6680-66-68 18:36:000.9[facility] HermannHEMATOLOGY 2018-02-25 18:36:001+ *ABN*(02/25/18 1:36 PM)[facility] UydxziwEYFYACKHFH0154-11-68 18:36:0076.6[facility] IjxzpxfHLDIDFNAUE4731-68-42 18:36:00* Test Item Value Reference Range Interpretation Comments PTT (test code = PTT) 44.1 s 22.9-35.8 [facility] ImdksusTQWFACKIPW2850-66-87 18:36:008.9[facility] HermannHEMATOLOGY 2018-02-25 18:36:005.8[facility] KriutqiZOTYCGLRYH1249-66-10 18:36:004.25[facility] HjcchmuCIYRCYOYKI1645-54-74 18:36:0032.3[facility] SdmpbqsETCZFOSGGA4366-47-85 18:36:0017.0[facility] FazlaupUXGGOLPAZX5595-05-40 18:36:30883Abputppu [place] FGIDLEGPTU6260-87-59 18:36:0032.5[facility] LlvbrkwQCJTLGVFHU5158-00-04 18:36:00 10.5[facility] IijwwwyALQBQQRPSO6432-80-07 18:36:0076.6[facility] HermannHEMATOLOGY 2018-02-25 18:36:00* Test Item Value Reference Range Interpretation Comments MCH (test code = MCH) 24.7 pg 27.0-31.0 [facility] BrouyvoKHTIRXLHXJ2720-15-70 18:36:00* Test Item Value Reference Range Interpretation Comments INR (test code = INR) 2.05 1 0.85-1.17 [facility] LffhavnCOOCXPUCCR4974-29-85 18:36:00* Test Item Value Reference Range Interpretation Comments PT (test code = PT) 23.3 s 12.0-14.7 [facility] HermannCHEM FSYMD5150-26-39 08:40:0051[facility] HermannCHEM PANEL 2014-12-01 08:40:0031[facility] HermannCHEM GZLEW0511-29-22 08:40:001.1[facility] HermannCHEM NTYOX3664-85-89 08:40:0025[facility] HermannCHEM QLMNJ8597-39-28 08:40:008.6[facility] HermannCHEM YEEHE2830-57-85 08:40:65041Lzsqfhsd HermannCHEM ZFKXT0915-37-71 08:40:003.8[facility] HermannCHEM EGOAW8400-35-75 08:40:0099 [facility] HermannCHEM HOLDL3128-25-52 08:40:47241Vurtgbgv HermannCHEM PANEL 2014-12-01 08:40:0013.8[facility] WrmiljmXTHNTALAYF8686-29-04 08:40:000.5[facility] CwzvunjNGILXUBCEV3301-25-54 08:40:000.2[facility] DdwepssUCDYQSFQMX8427-13-94 08:40:0025.5[facility] SlvrsgiQSVWJLLTMH6871-87-57 08:40:008.0[facility] IAVLHMEACR8267-77-76 08:40:0063.1[facility] AsyyxdxZVTDWYEAZS1703-74-42 08:40:00 3.1[facility] EwgwtodXPTTGZUZHE4424-61-75 08:40:001+ *ABN*(12/01/14 3:40 AM)[facility] VbvcdlrMSHCLLJBCP0764-53-89 08:40:004.0[facility] UuvjwbeOEJXWDRAUJ7857-92-56 08:40:000.3[facility] CsahzskCPNADWVCSA3682-80-51 08:40:001.6[facility] ECWDJWDUCA3453-69-20 08:40:00* Test Item Value Reference Range Interpretation Comments PT (test code = PT) 29.4 s 12.0-14.7 [facility] LzerjfmMRGIHVVNOL6890-08-07 08:40:002.68[facility] HermannHEMATOLOGY 2014-12-01 08:40:24642Eccqhbad AkuouzoTQSXDJHXBN2918-31-40 08:40:008.8[facility] LfsjgpjAABKADQZDN8617-20-71 08:40:0028.5[facility] JfnkiucQBRJWSSHFB1713-21-71 08:40:0033.3[facility] SzrewlhLOTMWNDQWV2527-46-63 08:40:0017.9[facility] SXKBOCCJUF3352-46-86 08:40:0075.7[facility] YlrqtctWWOIYXXDNW5661-54-33 08:40:00* Test Item Value Reference Range Interpretation Comments MCH (test code = MCH) 25.2 pg 27.0-31.0 [facility] MfbqcdtOLFVOCLOEJ6621-35-04 08:40:006.4[facility] HermannHEMATOLOGY 2014-12-01 08:40:003.76[facility] DtvaaexFDIWEUVUZL1254-53-90 08:40:009.5[facility] MbibkbmCJWRUWGMNYRS9282-45-48 09:14:26004Lgqewqiv HsbjysdCKZENKRPWGQW5875-49-64 09:14:003.8[facility] LkbvusfBVISQPJSFXZW7449-53-00 09:14:71051Ntqjfghz [facility] BTEJAJYXMOHD9338-98-82 09:14:0051[facility] ZplavdrJUFZYEFXTXLD5074-07-40 09:14:00 0.6[facility] QcolshtTKMMCRAYMMDD0034-76-37 09:14:15708Fmhrbmlw [place] THPXSPSBVYVP7904-56-55 09:14:0028[facility] HfqemhhELSMVDFUXTCY5481-36-77 09:14:00 3.1[facility] HakxmxjVGTEHLSGUVMI4759-30-76 09:14:0031[facility] HermannELECTROLYTES 2014-11-30 09:14:0038[facility] ZnmodxuMWLXBRSPKECM6559-41-26 09:14:008.6[facility] NwmhohnBYOUAHTICJSQ6771-51-38 09:14:007.4[facility] YqutmrhXUDNMTROBVYU0760-06-22 09:14:0074[facility] AuqbxbcGNFOHAAMXGWK0995-58-26 09:14:001.1[facility] NPNIQQUHJQKR7425-60-53 09:14:0027[facility] SiltcihHEEKQHCHLGVT7808-53-04 09:14:00 0.7[facility] VpashlyJKNXDLSPBQXW6631-65-14 09:14:004.3[facility] MIZCZAYEKSRS2465-55-37 09:14:0013.8[facility] AgomtzkBTRWPJKCKBEQ4382-24-90 09:14:0025[facility] NodlqekMAQSOMZLTU0233-32-46 09:14:003.1[facility] Ag LTBCMMXOZF0575-68-31 09:14:0011.3[facility] RvodmqwKZZGINNUTA5685-27-48 09:14:00 23.3[facility] MokccyhAXYXMEMKFP4785-56-07 09:14:0061.9[facility] HermannHEMATOLOGY 2014-11-30 09:14:001+ *ABN*(11/30/14 4:14 AM)[facility] QonbcodJBXMBIUAXX6913-57-85 09:14:000.2[facility] GjziymaTJCUWKNNRJ3333-02-78 09:14:000.4[facility] Ag SHTQKODGEE1028-48-54 09:14:003.5[facility] NyfduvpKMPHUKQOXM3631-19-98 09:14:001.3 [facility] QoykpwwLXYMBMPAUI8950-46-78 09:14:000.6[facility] HermannHEMATOLOGY 2014-11-30 09:14:0017.9[facility] YngkinfNPKIOAAOXZ9926-34-35 09:14:0033.2[facility] SwgishsAPUPDIVRQZ7568-82-18 09:14:0076.2[facility] DwwpjfsHLPDRJIQDS0516-45-42 09:14:00* Test Item Value Reference Range Interpretation Comments MCH (test code = MCH) 25.3 pg 27.0-31.0 [facility] SqkwawcDVDJPVYGBZ9789-31-90 09:14:0031.3[facility] HermannHEMATOLOGY 2014-11-30 09:14:009.0[facility] VmuggeyVTMWPYAAEA7371-14-38 09:14:29459Hixujdpl YsxsefxYRCELGASSF3509-93-28 09:14:004.11[facility] KtwnnrhYNDCMEIPST4128-51-58 09:14:0010.4[facility] RowsyerMXZSJDLDJA8514-77-43 09:14:005.7[facility] FMDIUFQDQB5626-78-67 09:14:002.52[facility] QhdgxavCCWWPWESBL3283-22-19 09:14:00* Test Item Value Reference Range Interpretation Comments PT (test code = PT) 28.0 s 12.0-14.7 [facility]annSPECIAL RSUVLVWDP3050-03-13 09:14:007.6[facility] HermannCHEM HHVVQ2670-76-69 15:50:000.25[facility] KmohnjdMNHMSPCNNC9845-58-88 15:50:002.48 [facility] MciukiqKHGGCTZHDE3133-45-23 15:50:00* Test Item Value Reference Range Interpretation Comments PT (test code = PT) 27.6 s 12.0-14.7 [facility]annCARDIAC HGPFVLO5406-00-05 13:27:000.03[facility] HermannCARDIAC XWGILJB6126-92-26 13:27:08948Eewwwvxr HermannCARDIAC ZPAUCTN9369-39-39 13:27:00 0.3[facility] HermannCARDIAC CANLEPM4223-72-77 13:27:001.0[facility] HermannCARDIAC EHWARJZ4549-83-55 06:25:000.04[facility] HermannCARDIAC ABEQPXA0478-22-30 06:25:00 278[facility] HermannCARDIAC MLZCTAM8160-92-90 06:25:000.4[facility] HermannCARDIAC LHWHJRO4915-71-18 06:25:001.2[facility] KczflteDELEHT5869-29-50 06:25:0021[facility] UryufhtNEPTRZ5881-59-75 06:25:0041[facility] AzhoimaVLIACI7909-71-17 06:25:0027 [facility] BvuhfxiYMYIBC3905-26-15 06:25:002.17[facility] ZajmxtrDWWQDO1294-94-88 06:25:74475Ofhelhhk HkjqcnuUKHNEF9184-94-91 06:25:0089[facility]annURINE AND TCYTD3711-46-31 01:35:00Negative *NA*(11/28/14 8:35 PM)[facility] AND WAPGP9363-56-03 01:35:00Negative (11/28/14 8:35 PM)[facility] AND STOOL 2014-11-29 01:35:00Trace *ABN*(11/28/14 8:35 PM)[facility] AND STOOL 2014-11-29 01:35:00Negative (11/28/14 8:35 PM)[facility] STOOL 2014-11-29 01:35:00<1[facility] AND LNZOY9090-09-92 01:35:001.009 [facility] IKLQR3887-99-47 01:35:005.0[facility] AND LELNI9901-21-23 01:35:00Clear (11/28/14 8:35 PM)[facility] HermannCARDIAC ENZYMES 2014-11-29 00:32:000.3[facility] HermannCARDIAC JVNJYHC4173-15-63 00:32:24774 [facility]annCARDIAC VVNQLVA8101-89-87 00:32:000.05[facility] HermannCARDIAC GCJVINN1780-93-85 00:32:000.6[facility] HermannCARDIAC IBDXSXR3446-66-99 00:32:00 207[facility] HermannCHEM UIYYY3743-72-54 00:32:002.9[facility] HermannCHEM PANEL 2014-11-29 00:32:002.0[facility] LoxgugnVXEAAPQEXA9018-42-60 00:32:00* Test Item Value Reference Range Interpretation Comments PTT (test code = PTT) 69.0 s 22.9-35.8 [facility] HermannCHEM ZAEUS0032-99-49 22:56:004.0[facility] HermannCHEM PANEL 2014-11-28 22:56:007.6[facility] HermannCHEM ZKOJR8101-93-65 22:56:0025[facility] HermannCHEM OUAWL7992-48-41 22:56:0030[facility] HermannCHEM MGHUG5372-94-39 22:56:0072[facility] HermannCHEM YIHKQ7494-14-12 22:56:000.7[facility] HermannCHEM PWCAS8577-79-00 22:56:0025[facility] HermannCHEM YXIXD7209-56-94 22:56:0042 [facility]annCHEM BDWBW4868-41-49 22:56:008.8[facility] HermannCHEM PANEL 2014-11-28 22:56:003.6[facility] HermannCHEM EZRID7263-73-22 22:56:004.0[facility] HermannCHEM FNTDI7906-55-86 22:56:001.3[facility] HermannCHEM AVEFG2150-04-31 22:56:0099[facility] HermannCHEM WKPSE1038-10-37 22:56:43616Mtagrxur HermannCHEM YHIYO3703-61-64 22:56:0024[facility] HermannCHEM EIULQ3019-71-83 22:56:06801 [facility] HermannCHEM UKUGJ6368-50-09 22:56:004.0[facility] HermannCHEM PANEL 2014-11-28 22:56:0019[facility] HermannCHEM RYOCO6026-93-70 22:56:000.9[facility] HermannCHEM HGMZX0458-42-22 22:56:0015.0[facility] VdiwhulDSFNFCUQAF0452-27-79 22:56:0033.5[facility] XhegajzUPDEZJMGQV3334-84-50 22:56:0018.1[facility] Ag ZDZZGORUTY4198-69-60 22:56:00* Test Item Value Reference Range Interpretation Comments MCH (test code = MCH) 25.6 pg 27.0-31.0 [facility] CczagtgQMJSNCEIIB8350-45-84 22:56:0029.0[facility] HermannHEMATOLOGY 2014-11-28 22:56:003.80[facility] SikdnnnKGQEXLUFYD9751-54-14 22:56:009.7[facility] YldblplPEGTQZSQIT2260-26-73 22:56:004.9[facility] CcgkvehFUWGTJRNZC1560-44-58 22:56:0076.4[facility] UtrkczlVHBKIZKLFA4843-84-81 22:56:74876Jqjmqeiv Ag THFMZUZIJA9442-45-40 22:56:009.4[facility] OpobwdhWKBZEYLZPI5044-86-66 22:56:001+ *ABN*(11/28/14 5:56 PM)[facility] VsqixpkSRYAFWXMAS5752-79-66 22:56:000.5[facility] KgkkexhBVXMDJCCIO1063-07-05 22:56:003.6[facility] LlqlcmxTEKWWNNKCV9499-72-38 22:56:000.4[facility] UpmvsaqSOKPSVTITU4837-03-19 22:56:000.6[facility] Ag RFYLNYCEKL7294-03-10 22:56:0013.2[facility] NiuelpsSEFEQTGUNQ7910-56-54 22:56:00 74.8[facility] ZqrdqikQMLCXPVMUH4254-84-64 22:56:000.5[facility] HermannHEMATOLOGY 2014-11-28 22:56:0011.1[facility] AclcxxkDWBUDMSLJ3737-38-01 01:34:001.0[facility] GqjugsnMICMKBEPR5624-15-38 01:34:004.2[facility] JaclwbmQTEVKXABT9557-37-68 01:34:004.1[facility] YieumlcCBULLZRCZ8170-21-75 01:34:008.3[facility] MCSQXLOSG3964-88-26 01:34:51308Tlxcfquz DuzxtkoSVUBOCAYE5369-27-67 01:34:0038 [facility] PskehswOIEYQKWGR4696-43-50 01:34:000.5[facility] HermannCHEMISTRY 2012-10-04 01:34:0030[facility] LcihmncZHSVFEORW4271-15-63 01:34:0012.0[facility] NkuyyrwROVCRZYMY0109-39-50 01:34:0030[facility] GonabqfHOZWYBGIP1919-34-41 01:34:009.1[facility] WshqwccAAQPBCBSJ9586-49-74 01:34:000.9[facility] Ag TUGLKCNJX2247-27-24 01:34:0027[facility] EiwfzodHJYBMHWJX9951-37-18 01:34:0029 [facility] KlacrusOEIFPACBB3905-44-54 01:34:14911Lwqvtgio HermannCHEMISTRY 2012-10-04 01:34:0066[facility] UcysorbKSJRJZPSC0760-97-02 01:34:004.0[facility] OpesigyCGVCGUJIY0339-08-81 01:34:27295Rumxelzf PejrzmkEHMHOYBJD3547-67-57 01:34:01140Vhogaouy VmipayfRPEFOLSSOK4152-64-88 01:34:00Clear (10/03/2012 20:34:00) UwfvwukKFZRYQPECR0671-47-23 01:34:00Yellow *NA*(10/03/2012 20:34:00) [facility] JkdukdlBRKGJHPYUE4858-80-56 01:34:00* Test Item Value Reference Range Interpretation Comments UA pH (test code = UA pH) 5.5 1 5.0-8.0 N [facility] EgafltwQNIEJQWSXP6372-77-02 01:34:00Negative mg/dL (10/03/2012 20:34:00) [facility] TaqgdluRAITBOMNIB9761-28-67 01:34:00* Test Item Value Reference Range Interpretation Comments UA Spec Grav (test code = UA Spec Grav) 1.015 1 N [facility] AfuszrcGDTVAEZVHA9937-71-73 01:34:00Negative mg/dL *NA*(10/03/2012 20:34:00) [facility] QcuqjrbUCVEYQKTIM6630-00-07 01:34:00Negative mg/dL (10/03/2012 20:34:00) [facility] IyxjzwcRDMIVFFFGY2090-79-24 01:34:00Negative (10/03/2012 20:34:00) [facility] GosoaaxHTOIYZVZKY3466-84-06 01:34:00Negative *NA*(10/03/2012 20:34:00) [facility] SxqgvunLYOTYPYCBW3940-83-18 01:34:000.2 [facility] GatuzwrXBPAEUFYFK2221-23-68 01:34:00Negative (10/03/2012 20:34:00) [facility] AmyoidgCNDGMWJNRM8568-77-08 01:34:00Negative (10/03/2012 20:34:00) [facility] YgjcwwlSVUUPZBXFI4995-52-59 01:34:00None Seen (10/03/2012 20:34:00) [facility] EokpwblWZVZIBTISG8591-66-94 01:34:00None Seen (10/03/2012 20:34:00) [facility] AffgfqqWWXJRGIYUH8324-72-44 01:34:000-2 /HPF (10/03/2012 20:34:00) [facility] ZuxdhjfXJFHXAZXVO0392-93-82 01:34:00Few /LPF (10/03/2012 20:34:00) [facility] ZauspjtFEQVISZBHS0177-77-88 01:34:00None Seen (10/03/2012 20:34:00) [facility]FkhlkubKDJICNVFLW4795-13-67 01:31:008.5[facility] HermannHEMATOLOGY 2012-10-04 01:31:006.9[facility] DugqtjlOSAOWHJWGA9043-11-47 01:31:0033.4[facility] IgldbwoWWQFTCTXTZ9597-70-94 01:31:004.27[facility] UamculyMQLAAYCMVS7132-81-43 01:31:0010.6[facility] MxndvblFEROMOZQGH6103-94-62 01:31:00* Test Item Value Reference Range Interpretation Comments MCH (test code = MCH) 24.9 pg 27.0-31.0 L [facility] LpcfaskWRDWBXGFQA3845-06-46 01:31:0031.8[facility] HermannHEMATOLOGY 2012-10-04 01:31:0078.3[facility] TiazepeKFDVZHBGGV9599-51-44 01:31:0018.6[facility] OinteqeZTLAEVNZAK2333-44-77 01:31:53930Gncpfoid GvnkajiMOQAODHJAI9278-61-63 01:31:005.5[facility] NqcflfoGHNNZPWVJU8172-77-33 01:31:0062.9[facility] Ag IVXNNIXTQK5523-04-07 01:31:0028.9[facility] JawndtpKKAIQYZJZT7313-39-85 01:31:00 4.3[facility] AxinbqtLBEOYTDKYU5999-04-03 01:31:002.0[facility] HermannHEMATOLOGY 2012-10-04 01:31:002.2[facility] HcrrbfhJBKCOEDQEQ1550-52-57 01:31:000.5[facility] VpepttrAFBKMPSHLB6935-82-70 01:31:000.0[facility] OxabwrmXURXXKZLKP0021-47-89 01:31:000.1[facility] ZvsxusaUFAAKJHCNM2841-40-89 01:31:000.4[facility] Ag YEYLDPVQXA8175-92-00 01:16:00* Test Item Value Reference Range Interpretation Comments PT (test code = PT) 14.2 s 12.0-14.7 N [facility] OagalhaURVCZLJBFZ4982-89-29 01:16:001.08[facility]
[2019-12-25] MEDS: ATORVASTATIN 20 MG TAB PO SCH (21:40)
[2019-12-25 23:21] LABS: HEMATOCRIT 23.9 % (34.2-44.1); HEMOGLOBIN 7.6 g/dL (12.0-16.0)
--- NOTE | 2019-12-25 23:21 | Consultation ---
DATE OF CONSULTATION: 12/25/2019 Cardiology Consultation HISTORY OF PRESENT ILLNESS: Ms. Gamboa is a pleasant 74-year-old woman with history of atrial fibrillation, status post pacemaker implantation, prior CVA, diabetes, hypertension, dyslipidemia, [employer]. Giorgio mechanical mitral valve replacement, status post transcatheter bioprosthetic aortic valve replacement, admitted with bloody stools and severe symptomatic anemia. She underwent PRBC transfusions and FFP transfusion for reversal of anticoagulation. GI has been consulted to further evaluate. The patient denies any chest discomfort and feels less fatigued and short of breath. REVIEW OF SYSTEMS: A 12-system reviewed and negative except for as noted above. ALLERGIES: NO KNOWN DRUG ALLERGIES. PAST SURGICAL HISTORY: History of pacemaker implant, mechanical mitral valve St. Giorgio, transcatheter aortic valve replacement, reportedly history of a uterine mass. SOCIAL HISTORY: No smoking, alcohol, or drugs. FAMILY HISTORY: Noncontributory. PHYSICAL EXAMINATION: VITAL SIGNS. Afebrile, temperature 98.6, blood pressure 130/70, respiratory rate 18 GENERAL: In no acute distress. Alert. HEENT: Pale and dry mucosa. NECK: No JVD. CHEST: Clear to auscultation bilaterally. CARDIOVASCULAR: Irregularly irregular rate and rhythm. Normal mechanical valve opening and closure click. Holosystolic ejection murmur noted at the cardiac apex. ABDOMEN: Soft. Bowel sounds positive. EXTREMITIES: No edema. LABORATORY DATA: Studies reviewed. Hemoglobin low at 3.1, now over 7 posttransfusion Coronavirus disease-19 PCR ordered and pending. ASSESSMENT AND PLAN: 1. Hypovolemic shock, now status post PRBC transfusion and poor vegetation as well as FFP transfusion. 2. Severe symptomatic anemia in the setting of gastrointestinal bleeding. 3. Coagulopathy related to vitamin K administration. 4. Mechanical mitral valve, St. Giorgio. 5. Bioprosthetic aortic valve. 6. Atrial fibrillation. 7. Prior history of stroke. 8. Status post pacemaker in place. 9. Diabetes mellitus. 10. Hyperlipidemia. 11. Hypertension. 12. Depression. RECOMMENDATIONS: Repeat INR, can repeat every 46 hours on FFP administration to monitor for response in preparation for GI endoscopic evaluation. Once GI evaluation completed and after initial 48 hours if no recurrent bleeding and stable H and H, can then determine family for resumption of heparin IV bridge and anticoagulation with vitamin K antagonist. The patient is at elevated risk for thromboembolic events while off anticoagulation given prior CVA, AFib, and mechanical mitral prosthesis. However, in the setting of active bleeding with severe symptomatic anemia, temporary discontinuation and reversal anticoagulation is advisable (preferably as needed with FFP). Suggest avoiding vitamin K at this point. We will follow closely with you. Please call with any questions at [phone]. Coordinated care with Dr. Doug Katz. Chris Valencia MD AFV/MODL /[id number] MTDD
[2019-12-26 04:00] VITALS: BP 133/67
[2019-12-26] MEDS: PANTOPRAZOLE INJ 40 MG in SODIUM CHLORIDE 0.9% 50ML 50 ML IV SCH ×3 (05:16)
[2019-12-26 06:16] LABS: BASOPHILS % 0.5 % (0.0-1.0); EOSINOPHILS # (AUTO) 0.1 (0.0-0.4); EOSINOPHILS % 1.6 % (0.0-6.0); HEMATOCRIT 23.9 % (34.2-44.1); HEMOGLOBIN 7.6 g/dL (12.0-16.0); LYMPHOCYTES # (AUTO) 0.7 (1.0-3.2); LYMPHOCYTES % 17.3 % (18.0-39.1); MEAN CORPUSCULAR HEMOGLOBIN 25.6 pg (28-32); MEAN CORPUSCULAR HGB CONC 31.8 g/dL (31-35); MEAN CORPUSCULAR VOLUME 80.5 fL (81-99); MONOCYTES # (AUTO) 0.4 (0.2-0.8); MONOCYTES % 8.6 % (4.4-11.3); NEUTROPHILS # (AUTO) 3.1 (2.1-6.9); NEUTROPHILS % 71.5 % (38.7-80.0); PLATELET COUNT 163 x10e3/uL (140-360); RED BLOOD COUNT 2.97 x10e6/uL (3.6-5.1); RED CELL DISTRIBUTION WIDTH 18.5 % (11.7-14.4)
[2019-12-26 06:24] LABS: INR 1.28; PROTHROMBIN TIME 16.7 seconds (11.9-14.5)
[2019-12-26 06:25] LABS: PARTIAL THROMBOPLASTIN TIME 50.1 seconds (23.8-35.5)
[2019-12-26 06:51] LABS: ALANINE AMINOTRANSFERASE 10 IU/L (0-55); ALBUMIN 2.9 g/dL (3.5-5.0); ALBUMIN/GLOBULIN RATIO 0.9 (0.8-2.0); ALKALINE PHOSPHATASE 67 IU/L (40-150); BLOOD UREA NITROGEN 48 mg/dL (7-26); BUN/CREATININE RATIO 55 (6-25); CALCIUM 8.1 mg/dL (8.4-10.2); CARBON DIOXIDE 28 mmol/L (22-29); CHLORIDE 109 mmol/L (98-107); CREATININE, SERUM 0.88 mg/dL (0.57-1.11); EST GLOMERULAR FILTRATION RATE > 60 ML/MIN (60-); GLUCOSE 120 mg/dL (74-118); SODIUM 143 mmol/L (136-145)
[2019-12-26 08:00] VITALS: BP 113/60
[2019-12-26] MEDS: METOPROLOL SUCCINATE 25 MG TAB XL PO SCH ×2 (10:50→16:27)
[2019-12-26] MEDS: DULOXETINE HCL 30 MG DELAYED RELEASE PO SCH (10:50)
[2019-12-26] MEDS: PANTOPRAZOL 40MG/SOD CHL 0.9% 50 ML IV SCH ×2 (10:51→16:26)
[2019-12-26 12:00] VITALS: BP 124/63
[2019-12-26] MEDS ORDERED: LIDOCAINE HCL 2% LOCAL INJ 5 ML SDV VIAL INJ ONE (14:25)
[2019-12-26] MEDS ORDERED: ETOMIDATE 2 MG/ML 10 ML INJ IV ONE (14:25)
[2019-12-26] MEDS ORDERED: METOCLOPRAMIDE HCL 10 MG/2ML VIAL ONE (14:25)
[2019-12-26] MEDS ORDERED: PROPOFOL IV EMULSION 10 MG/ML 20 ML VIAL ONE (14:25)
--- NOTE | 2019-12-26 15:14 | Progress Note ---
DATE: 12/26/2019 CHIEF COMPLAINT/HISTORY OF PRESENT ILLNESS: A 74-year-old white woman, whose primary treating diagnosis is acute on chronic anemia secondary to gastrointestinal bleeding from warfarin toxicity. The patient's prothrombin time and INR level today is 60.7 and 1.28 respectively. The patient's hemoglobin today is 7.6 g/dL. During this hospitalization, the patient has been transfused 4 units of packed red cells and 3 units of fresh frozen plasma. Apparently on admission, the patient's hemoglobin was 3.8 g/dL and did get as low as 3.1 g/dL. The patient's main complaint is that she wants to eat food. The patient is scheduled for upper endoscopy later today. The patient's COVID-19 test was negative. REVIEW OF SYSTEMS: As per HPI. PHYSICAL EXAMINATION: GENERAL: She is awake, alert. Her daughter is at bedside. VITAL SIGNS: Height 5 feet 4 inches, weight 120 pounds, BMI 20. Blood pressure is 110/60, pulse 64, respiratory rate is 14, oxygen saturation 100% on 3 L of oxygen, and temp 98.1. INTEGUMENT: Skin is warm and dry. Slight pallor, jaundice, and diaphoresis. HEENT: Anterior sclerae moist mucous membranes. The patient's left facial droop, but that is chronic from an old stroke. NECK: Supple. CARDIOVASCULAR: Distant heart sounds. Regular rhythm with S3 gallop. LUNGS: No rales. No rhonchi. ABDOMEN: Benign. EXTREMITIES: No edema or deformity. NEUROLOGIC: She has left upper extremity weakness as well as muscle wasting in her left hand. DIAGNOSES: 1. Acute anemia secondary to warfarin toxicity. 2. Atrial fibrillation. 3. History of mitral valve repair. 4. Cerebrovascular disease (CVA in 2006 with residual left upper extremity weakness). 5. Hypertensive heart disease. PLAN: 1. Follow hemoglobin and hematocrit. 2. Hold warfarin, aspirin. 3. Tentative upper endoscopy this afternoon. 4. If the patient's hemoglobin and hematocrit remained stable, she may be discharged home tomorrow. 5. I informed both adult daughters that if the patient stays on warfarin therapy, she will require prothrombin time and INR checks at least every weeks. I spent 30 minutes in the care of this patient. Gumaro E Orahood, MD [facility] /[id number] NE[facility]
[2019-12-26 16:31] VITALS: BP 136/55
--- NOTE | 2019-12-26 18:35 | Operative Report ---
DATE OF PROCEDURE: 12/26/2019 SURGEON: Doug Katz MD PROCEDURE: An EGD with fulguration of the duodenal AVM and biopsies. INDICATIONS FOR COLONOSCOPY: Anemia. History of hematemesis. MEDICATIONS: The patient was done under MAC, please see anesthesiologist's note. PROCEDURE IN DETAIL: With the patient in left lateral decubitus position, a flexible fiberoptic Olympus gastroscope was introduced into the esophagus under direct visualization without any difficulty. There was a small hiatal hernia noted as the scope was advanced into the stomach. There was some patchy erythema noted in distal esophagus. Mucosa overlying the antrum and the body revealed some patchy erythema and moderate edema. Biopsies were obtained, sent to stain for H pylori. Pylorus was intubated with ease and the scope was advanced all the way to the second portion of the duodenum. A minute AVM was noted in the proximal second portion that was not actively bleeding that was fulgurated with a size 7-[place] Gold Probe. The scope was then withdrawn back into the stomach and retroflexed. Mucosa overlying the fundus and cardia appeared to be within normal limits. The scope was then straightened out. It was subsequently withdrawn. The patient tolerated the procedure well. IMPRESSION: 1. Distal esophagitis. 2. Small sliding hiatal hernia. 3. Gastritis, biopsied, biopsies sent to stain for Helicobacter pylori. 4. Arteriovenous malformation, second portion of duodenum, none actively bleeding. Fulgurated with size 7-[place] Gold Probe. PLAN: Follow up histology. Continue PPI therapy. Above findings do not necessarily think the patient's anemia. She might benefit from a colonoscopy. Doug Katz MD [facility] [place] /[id number] cc: MD Karina De Los Santos MD
[2019-12-26] MEDS ORDERED: HEPARIN SOD (PORCINE) 5,000 UNIT/ML VIAL IV ONE (19:00)
[2019-12-26] MEDS ORDERED: PEG (High)/E-LYTE SOLN 4,000 ML BTL PO ONE (19:30)
--- NOTE | 2019-12-26 19:30 | NUR ---
Daughter in pt. room. Explained to her that she needs to wear mask.
--- NOTE | 2019-12-26 20:04 | NUR ---
called answering service for dr Reyez regarding Heparin order, patient is having procedure tomorrow. awaiting for call back.
[2019-12-26 20:30] VITALS: BP 120/58
[2019-12-26] MEDS: HEPARIN 25,000 UNIT 700 UNIT in DEXTROSE 5% 250ML 250 ML IV SCH (20:58)
--- NOTE | 2019-12-26 20:59 | NUR ---
dr Hernandez called back gave orders, start heparin orders and he aware patient will have colonoscopy tomorrow. per MD, haparin needs to be stopped 4 hrs prior procedure tomorrow. orders carried out.
[2019-12-26] MEDS ORDERED: FUROSEMIDE INJ 10 MG/ML 4 ML VIAL IV ONE (21:00)
--- NOTE | 2019-12-26 21:20 | NUR ---
Pt. daughter in room not wearing her mask. Explained to her that she needs to wear her mask for the pt. safety.
[2019-12-26] MEDS: ATORVASTATIN 20 MG TAB PO SCH (21:25)
--- NOTE | 2019-12-26 22:21 | Progress Note ---
DATE: 12/26/2019 Cardiology Progress Note SUBJECTIVE: Denies any gross bleeding. Has no new complaints. Status post EGD, coordinate care with GI. OBJECTIVE: VITAL SIGNS: Temperature 97.5, heart rate 63, blood pressure 138/68, respiratory rate 16, and O2 saturation 98%. GENERAL: In no acute distress. Alert. NECK: Jugular vein distended. CHEST: Clear to auscultation. CARDIOVASCULAR: Irregular rate and rhythm. Normal opening and closure, mechanical valve placed. Systolic murmur. ABDOMEN: Soft. EXTREMITIES: No edema. CARDIOVASCULAR MEDICATIONS: Reviewed. 20 mg of furosemide p.r.n., metoprolol succinate 25 mg b.i.d., atorvastatin 20 mg at bedtime. LABORATORY DATA: Studies reviewed. Creatinine 0.8. White blood cells 40, hemoglobin 7.6, remains stable. On serial followup H and H, platelets 163, PTT 50, PT 16, INR 1.2. ASSESSMENT AND PLAN: 1. A 74-year-old woman with acute gastrointestinal bleed, severe symptomatic anemia, now stable status post PRBC transfusion and reversal of anticoagulation with Coumadin toxicity related to therapeutic anticoagulation for mechanical mitral [place] valve and status post transcatheter bioprosthetic aortic valve replacement, with the history of atrial fibrillation and cerebrovascular accident. 2. Coronary artery disease. Recommend resume IV heparin bridge and monitor closely for bleeding. Can discontinue bridge as needed for possible colonoscopy planned within the next several days by [facility]. If any observed gastrointestinal bleed occurs or any active bleeding recurs or H and H starts dropping, discontinue IV heparin. Elevated risk for thromboembolic events given valvular heart disease with high-risk features. Discussed at length with the patient and family members. Seems slightly volume overloaded on exam today. Add additional furosemide 40 mg IV x1. Chris Valencia MD [facility]/MODL /[id number]
[2019-12-27] VITALS (7 sets, daily range): BP systolic 121–154; BP diastolic 62–84
[2019-12-27] MEDS: PANTOPRAZOL 40MG/SOD CHL 0.9% 50 ML IV SCH ×6 (00:30→21:20)
--- NOTE | 2019-12-27 01:32 | NUR ---
PTT RESULT CAME BACK 54.5; NO RATE CHANGE ON HEPARIN DRIP.
[2019-12-27 06:54] LABS: BASOPHILS % 0.4 % (0.0-1.0); EOSINOPHILS # (AUTO) 0.1 (0.0-0.4); EOSINOPHILS % 1.9 % (0.0-6.0); HEMATOCRIT 24.8 % (34.2-44.1); HEMOGLOBIN 7.7 g/dL (12.0-16.0); LYMPHOCYTES % 20.1 % (18.0-39.1); MEAN CORPUSCULAR HEMOGLOBIN 25.5 pg (28-32); MEAN CORPUSCULAR VOLUME 82.1 fL (81-99); MONOCYTES # (AUTO) 0.4 (0.2-0.8); MONOCYTES % 7.9 % (4.4-11.3); NEUTROPHILS # (AUTO) 3.3 (2.1-6.9); NEUTROPHILS % 69.1 % (38.7-80.0); PLATELET COUNT 181 x10e3/uL (140-360); RED BLOOD COUNT 3.02 x10e6/uL (3.6-5.1); RED CELL DISTRIBUTION WIDTH 18.8 % (11.7-14.4)
[2019-12-27 07:17] LABS: ALANINE AMINOTRANSFERASE 12 IU/L (0-55); ALBUMIN/GLOBULIN RATIO 0.9 (0.8-2.0); ALKALINE PHOSPHATASE 70 IU/L (40-150); ANION GAP 10.7 mmol/L (8-16); BLOOD UREA NITROGEN 26 mg/dL (7-26); BUN/CREATININE RATIO 33 (6-25); CALCIUM 8.1 mg/dL (8.4-10.2); CARBON DIOXIDE 29 mmol/L (22-29); CHLORIDE 104 mmol/L (98-107); CREATININE, SERUM 0.79 mg/dL (0.57-1.11); EST GLOMERULAR FILTRATION RATE > 60 ML/MIN (60-); GLUCOSE 131 mg/dL (74-118); POTASSIUM 3.7 mmol/L (3.5-5.1); SODIUM 140 mmol/L (136-145)
[2019-12-27] MEDS: DULOXETINE HCL 30 MG DELAYED RELEASE PO SCH (10:20)
[2019-12-27] MEDS: METOPROLOL SUCCINATE 25 MG TAB XL PO SCH ×2 (10:20→17:42)
--- NOTE | 2019-12-27 11:07 | Progress Note ---
DATE: 12/27/2019 CHIEF COMPLAINT/HISTORY OF PRESENT ILLNESS: This is a 74-year-old woman, whose primary diagnosis is acute on chronic anemia secondary to gastrointestinal bleeding from warfarin toxicity. The patient is currently on intravenous heparin. Her partial thromboplastin time is 50.7. The patient is no longer having rectal bleeding. The patient underwent EGD yesterday on December 26, 2019, and was found to have distal esophagitis, small sliding hiatal hernia and gastritis. EGD also revealed an arterial venous malformation in the 2nd portion of duodenum, but no active bleeding was appreciated. Thus, the patient is currently undergoing a colonic prep for tentative colonoscopy later today. The patient voiced no complaints. The patient is very eager to be discharged home. The patient's hemoglobin 7.7 g/dL. The patient's BUN and creatinine 26 and 0.79 respectively. REVIEW OF SYSTEMS: As per HPI. PHYSICAL EXAMINATION: GENERAL: She is awake. She is alert. She is fluent. She only speaks Bhutanese. Her adult daughter is at bedside. VITAL SIGNS: Blood pressure 136/62, pulse 82, respiratory rate 16, temp 99.6, and oxygen saturation 99% on room air. Height 5 feet 4 inches, weight 120 pounds, BMI 20. INTEGUMENT: Skin is warm and dry. Slight pallor. No jaundice or diaphoresis. HEENT: Anterior sclerae with moist mucous membranes. She does have a left facial droop, but that is chronic from her old stroke. NECK: Supple. CARDIOVASCULAR: Distant heart sounds. The patient has mechanical click. Regular rate and rhythm with S3 gallop. LUNGS: No rales, no rhonchi. No wheezes. ABDOMEN: Benign. EXTREMITIES: No edema or deformity. NEUROLOGIC: She has left upper extremity weakness as well as muscle wasting in her left hand from an old stroke. DIAGNOSES: 1. Acute anemia secondary to warfarin toxicity. 2. Atrial fibrillation. 3. History of mitral valve repair. 4. Cerebrovascular disease (CVA in 2006 with residual left upper extremity weakness). 5. Status post EGD. 6. Endoscopically proven duodenal arteriovenous malformation. 7. Hypertensive heart disease. PLAN: 1. Continue intravenous heparin since the patient is at high risk for recurrent embolic stroke due to the fact she has a prosthetic valve. 2. Follow hemoglobin and hematocrit. 3. Continue colonic prep. 4. Tentative colonoscopy later this afternoon. 5. If colonoscopy is unremarkable or hemoglobin hematocrit or remained stable, she may be discharged home tomorrow on SaturdayDecember 27. I spent 30 minutes in care of this patient. MD DERIK Crystal/GLENN /[id number] MTDJose A
[2019-12-27] MEDS ORDERED: CITRATE OF MAGNESIA 300ML BOTTLE PO ONE ×2 (11:30→14:30)
--- NOTE | 2019-12-27 11:40 | NUR ---
RECEIVED TO RM AAOX3 NO DISTRESS NOTED, UPDATED ON POC VOICED UNDERSTANDING,HEPARIN GTT INFUSING TO R AC 20G NO SS OF INFILTRATION NOTED, R FA 22G WITH PROTONIX GTT INFUSING, NO SS OF INFILTRATION NOTED, NO OTHER CO VOCIED DENIES PAIN AT THIS TIME, CALL LIGHT IN REACH WILL CONTINUE TO MONITOR
--- NOTE | 2019-12-27 12:33 | NUR ---
PT HAD SMALL BLACK BM NOTED
--- NOTE | 2019-12-27 15:00 | NUR ---
SPOKE WITH DR Elías AMADOR, PT NOT CLEAR, COLONOSCOPY RESCHEDULED FOR TOMORROW 12/28/19 @ 7AM, WILL NOTIFY DR YANEZ RE: RESTART OF HEPARIN GTT
[2019-12-27] MEDS ORDERED: BISACODYL 5 MG TAB EC PO ONE ×2 (15:45→17:45)
--- NOTE | 2019-12-27 15:50 | NUR ---
SPOKE WITH DR MIXON RE: HEPARIN GTT, ORDERS TO RESTART HEPARIN GTT ACCORDING TO PROTOCOL AND STOP HEPARIN GTT 4 HOURS BEFORE COLONOSCOPY IN THE MORNING (12/28/19 @ 7AM).
[2019-12-27 16:50] LABS: ANION GAP 16.7 mmol/L (8-16); BLOOD UREA NITROGEN 21 mg/dL (7-26); BUN/CREATININE RATIO 26 (6-25); CALCIUM 8.6 mg/dL (8.4-10.2); CARBON DIOXIDE 24 mmol/L (22-29); CHLORIDE 102 mmol/L (98-107); CREATININE, SERUM 0.81 mg/dL (0.57-1.11); EST GLOMERULAR FILTRATION RATE > 60 ML/MIN (60-); GLUCOSE 137 mg/dL (74-118); POTASSIUM 3.7 mmol/L (3.5-5.1); SODIUM 139 mmol/L (136-145)
[2019-12-27] MEDS: HEPARIN 25,000 UNIT 700 UNIT in DEXTROSE 5% 250ML 250 ML IV SCH (17:40)
--- NOTE | 2019-12-27 19:15 | NUR ---
PATIENT RESTING IN BED AT THIS TIME. NO PAIN NOTED OR REPORTED. NO S&S OF DISTRESS NOTED. TELE MONITOR IS ON. DAUGHTER AT BED SIDE. CALL LIGHT WITHIN REACH. INSTRUCT TO CALL FOR ASSISTANCE. BED LOCKED IN LOWEST POSITION, SIDE RAILS UPX2, CALL LIGHT IN REACH.
[2019-12-27] MEDS: ATORVASTATIN 20 MG TAB PO SCH (21:20)
--- NOTE | 2019-12-27 21:30 | Progress Note ---
DATE: 12/27/2019 Cardiology Progress Note SUBJECTIVE: VITAL SIGNS: No complaints. Denies any gross bleeding. Temperature 97.9, heart rate 64, blood pressure 154/84, respiratory rate 19, and O2 saturation 97%. GENERAL: In no acute distress. Alert. NECK: No JVD. CHEST: Clear to auscultation. CARDIOVASCULAR: Regular rate and rhythm. [place] valve opening and closure sound with systolic murmur. No S3 or S4. ABDOMEN: Soft. Bowel sounds positive. EXTREMITIES: No edema. CARDIOVASCULAR MEDICATION: Reviewed. Furosemide p.r.n., status post 40 mg IV daily yesterday, atorvastatin 10 mg at bedtime, metoprolol succinate 25 mg b.i.d. LABORATORY DATA: Studies reviewed. Creatinine 0.8. White blood cells 4.7, hemoglobin stable at 7.7, platelets 181. INR 1.2, and PTT 51. ASSESSMENT AND PLAN: A 74-year-old woman presents with gastrointestinal bleed and anemia. No active bleeding observed. H and H remain stable. Pending colonoscopy, which was rescheduled for tomorrow due to incomplete prep. Resumed IV heparin can hold 4 hours prior to colonoscopy. Has mechanical mitral valve, atrial fibrillation, history of stroke, systolic heart failure, coronary artery disease, elevated risk for thromboembolic event. Therefore, heparin bridge advice to be no active bleeding at this point. Further recommendations to follow depending on GI findings. Continue rest of cardiovascular medications. The patient is also status post bioprosthetic and transcatheter aortic valve replaced. MD MADI De Los Santos/GLENN /[id number]
[2019-12-28] VITALS (7 sets, daily range): BP systolic 118–135; BP diastolic 58–69
[2019-12-28] MEDS: PANTOPRAZOL 40MG/SOD CHL 0.9% 50 ML IV SCH ×4 (01:48→19:28)
--- NOTE | 2019-12-28 03:00 | NUR ---
HOLD HEPARIN DRIP PER MD ORDER.
[2019-12-28 06:00] LABS: BASOPHILS % 0.4 % (0.0-1.0); EOSINOPHILS # (AUTO) 0.1 (0.0-0.4); EOSINOPHILS % 2.6 % (0.0-6.0); HEMATOCRIT 25.6 % (34.2-44.1); LYMPHOCYTES # (AUTO) 0.9 (1.0-3.2); LYMPHOCYTES % 16.9 % (18.0-39.1); MEAN CORPUSCULAR HEMOGLOBIN 25.6 pg (28-32); MEAN CORPUSCULAR HGB CONC 31.3 g/dL (31-35); MEAN CORPUSCULAR VOLUME 81.8 fL (81-99); MONOCYTES # (AUTO) 0.4 (0.2-0.8); MONOCYTES % 8.8 % (4.4-11.3); NEUTROPHILS # (AUTO) 3.6 (2.1-6.9); NEUTROPHILS % 70.7 % (38.7-80.0); PLATELET COUNT 215 x10e3/uL (140-360); RED BLOOD COUNT 3.13 x10e6/uL (3.6-5.1); RED CELL DISTRIBUTION WIDTH 19.2 % (11.7-14.4)
[2019-12-28 06:05] LABS: PARTIAL THROMBOPLASTIN TIME 59.2 seconds (23.8-35.5)
[2019-12-28 06:09] LABS: ALANINE AMINOTRANSFERASE 16 IU/L (0-55); ALBUMIN 3.1 g/dL (3.5-5.0); ALKALINE PHOSPHATASE 75 IU/L (40-150); ANION GAP 11.3 mmol/L (8-16); BLOOD UREA NITROGEN 16 mg/dL (7-26); BUN/CREATININE RATIO 20 (6-25); CALCIUM 7.9 mg/dL (8.4-10.2); CARBON DIOXIDE 26 mmol/L (22-29); CHLORIDE 104 mmol/L (98-107); EST GLOMERULAR FILTRATION RATE > 60 ML/MIN (60-); GLUCOSE 128 mg/dL (74-118); POTASSIUM 3.3 mmol/L (3.5-5.1); SODIUM 138 mmol/L (136-145)
[2019-12-28 06:11] LABS: INR 1.05; PROTHROMBIN TIME 14.2 seconds (11.9-14.5)
--- NOTE | 2019-12-28 07:20 | NUR ---
ASSUMED CARE. AAOX3. ACYANOTIC. PERFORMING ORAL CARE IN RESTROOM WITH STANDBY ASSISTANCE FROM DAUGHTER. NO DISTRESS NOTED. BED LOW AND LOCKED.
[2019-12-28] MEDS: METOPROLOL SUCCINATE 25 MG TAB XL PO SCH ×2 (08:07→17:00)
[2019-12-28] MEDS: DULOXETINE HCL 30 MG DELAYED RELEASE PO SCH (08:07)
--- NOTE | 2019-12-28 10:23 | Progress Note ---
DATE: 12/28/2019 Cardiology Progress Note SUBJECTIVE: Ms. Gamboa denies any chest pain or shortness of breath. She denies any active gross bleeding. OBJECTIVE: VITAL SIGNS: Temperature 97.8, heart rate 68, blood pressure 125/58, respiratory rate 18, and O2 saturation 99%. GENERAL: In no acute distress. Alert. NECK: No JVD. CHEST: Clear to auscultation. CARDIOVASCULAR: Regular rate and rhythm. Normal mechanical valve, crisp opening and closure, clicks. No S3 or S4. Systolic ejection murmur. ABDOMEN: Soft. Bowel sounds positive. EXTREMITIES: No edema. Warm extremities. CARDIOVASCULAR MEDICATIONS: Reviewed. IV heparin on hold pending colonoscopy today, metoprolol succinate 25 mg b.i.d., atorvastatin 20 mg at bedtime, and p.r.n. furosemide 20 mg. STUDIES: Reviewed. Sodium 138, potassium 3.3, chloride 104, bicarbonate 26, BUN 16, creatinine 0.8, and glucose 128. White blood cells 5, hemoglobin 8, and platelets 215. PTT 59. INR 1. ASSESSMENT AND PLAN: 1. A 74-year-old woman with history of mechanical mitral valve, status post aortic bioprosthetic valve via transcatheter replacement. 2. Atrial fibrillation. 3. Anemia. 4. History of cerebrovascular accident. 5. Hypertension and dyslipidemia. 6. Coronary artery disease. RECOMMEND: 1. Monitor H and H for gross bleeding. 2. Moderate risk for adverse cardiovascular outcomes with endoscopic GI procedure. We will continue perioperative beta-blockers. 3. Resume IV heparin if okay with GI following completion of colonoscopy. Depending on findings, further recommendations regarding timing to resuming anticoagulation via oral route. Chris Valencia MD [facility]/MODL /[id number]
--- NOTE | 2019-12-28 10:46 | NUR ---
AT APPROXIMATELY 1043 PATIENT TRANSFERRED ON STRETCHER TO OR VIA OR STAFF FOR SCHEDULED PROCEDURE. AAOX3. ACYANOTIC. NO DISTRESS NOTED.
--- NOTE | 2019-12-28 12:43 | Operative Report ---
DATE OF PROCEDURE: 12/28/2019 SURGEON: Doug Katz MD PROCEDURE: Colonoscopy with polypectomy. INDICATIONS FOR COLONOSCOPY: Anemia. MEDICATIONS: The patient was done under MAC, please see anesthesiologist's note. PROCEDURE IN DETAIL: With the patient in the left lateral decubitus position, a flexible fiberoptic Olympus colonoscope was inserted into the rectum with ease and advanced all the way to the cecum. A minute polyp was noted in the cecum, was removed per cold biopsy forceps. The scope was then withdrawn slowly. An additional minute polyp was noted in the proximal ascending colon that was removed per cold biopsy forceps. Of note, prep was suboptimal, but visualization was fair. The rest of the ascending, transverse, and descending appeared to be within normal limits. Some diverticulosis was noted in the sigmoid colon. The rectum appeared to be within normal limits. The scope was then retroflexed into the distal rectum and small internal hemorrhoids were noted, none of which was actively bleeding. The scope was then straightened out, it was subsequently withdrawn, and the patient tolerated the procedure well. IMPRESSION: 1. Cecal polyp, cold biopsied. 2. Ascending colon polyp, cold biopsied. 3. Diverticulosis. 4. Internal hemorrhoids, none actively bleeding. PLAN: Follow up histology. Follow up H and H. The patient will need a capsule endoscopy to complete evaluation. Doug Katz MD [facility] [place]/[facility] /[id number] cc: MD Chris Burgos MD
--- NOTE | 2019-12-28 13:20 | NUR ---
PATIENT ARRIVED TO UNIT AT APPROXIMATELY 1210. AAOX3. ACYANOTIC. RESTING IN BED TALKING ON TELEPHONE WITH FAMILY MEMBER. NO DISTRESS NOTED. CALL LIGHT IN REACH. SIDE RAILS UP X2. BED LOW AND LOCKED. PROTONIX RESUMED IV. DAUGHTER PRESENT AT BEDSIDE.
[2019-12-28] MEDS ORDERED: LIDOCAINE HCL 2% LOCAL INJ 5 ML SDV VIAL INJ ONE (17:36)
[2019-12-28] MEDS ORDERED: PROPOFOL IV EMULSION 10 MG/ML 20 ML VIAL ONE (17:36)
--- NOTE | 2019-12-28 18:37 | NUR ---
ADDRESSED TO CONTINUATION OF HEPARIN IV WITH DR. AMADOR. WILL CONTINUE AT THIS TIME. NO DISTRESS NOTED. HEPARIN DRIP CURRENTLY INFUSING AT 7ML PER HR VIA RIGHT HAND IV. NEXT PTT DUE AT 0040.
[2019-12-28] MEDS: HEPARIN 25,000 UNIT 700 UNIT in DEXTROSE 5% 250ML 250 ML IV SCH (19:00)
--- NOTE | 2019-12-28 20:40 | NUR ---
RECEIVED PT IN BED AOX3 NO ACUTE DISTRESS NOTED N.PT IA ON P.FAMILY AT THE BEDSIDE CALL LIGHT WITH IN REACH ,PROTONIX AND HEPARIN DRIP .CALL LIGHT WITH IN REACH ,CONTINUE TO MONITOR
[2019-12-28] MEDS: ATORVASTATIN 20 MG TAB PO SCH (21:00)
[2019-12-29] VITALS (8 sets, daily range): BP systolic 118–134; BP diastolic 64–70
[2019-12-29] MEDS: PANTOPRAZOL 40MG/SOD CHL 0.9% 50 ML IV SCH ×6 (01:23→23:15)
--- NOTE | 2019-12-29 01:42 | NUR ---
PTT IS 83.6 REDUCE THE RATE BY I UNIT .NOW THE RATE IS 6 ML/HR .CONTINUE TO MONITOR
--- NOTE | 2019-12-29 06:03 | NUR ---
PT RESTED DURING THE NIGHT ,NO ACUTE DISTRESS NOTED PT IS ON PROTONIX AND HEPARIN DRIP ,FAMILY AT THE BEDSIDE ,CONTINUE TO MONITOR
--- NOTE | 2019-12-29 06:57 | Progress Note ---
DATE: 12/28/2019 SUBJECTIVE: Ms. Gamboa is a 74-year-old female with history of atrial fibrillation, cardiac pacemaker, aortic bile replacement, diabetes, stroke, hypertension, hyperlipidemia, depression, who went to see the GI doctor. She was found to be very anemic. She was sent to the emergency room. After admission, she received several units of packed red cells. She has been seen by GI. 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 She is going to go for colonoscopy today. PHYSICAL EXAMINATION: GENERAL: She is awake and alert. She is feeling better. VITAL SIGNS: Temperature is 97.8, blood pressure 125/58. HEART: Irregularly irregular. LUNGS: Poor inspiratory effort. ABDOMEN: Distended and soft. LABORATORY DATA: White count 5.02, hemoglobin is 8, hematocrit is 25.6. Potassium 3.3, creatinine 0.8, glucose 128. INR 1.05 today. COVID negative. ASSESSMENT: 1. Hypovolemic shock, resolved. 2. Severe anemia due to blood loss. 3. Coagulopathy. 4. History of atrial fibrillation. 5. History of permanent pacemaker. 6. Aortic valve replacement. 7. Diabetes type 2. 8. History of cerebrovascular accident. 9. Hyperlipidemia. 10. Hypertension. 11. Depression. PLAN: At the present time, still continue to monitor hemoglobin and hematocrit. She had already an EGD done. She is going to go for colonoscopy today. Once we have the results of the colonoscopy, the next step is to decide regarding anticoagulation. Dr. Moody is following the patient with me. All this was discussed in extension with the patient and family member at bedside. All questions were answered to satisfaction. MD CAMILLE Burgos/GLENN /[id number]
--- NOTE | 2019-12-29 07:25 | NUR ---
BEDSIDE REPORT GIVEN TO THE ONCOMING NURSE
[2019-12-29] MEDS: DULOXETINE HCL 30 MG DELAYED RELEASE PO SCH (08:29)
[2019-12-29] MEDS: METOPROLOL SUCCINATE 25 MG TAB XL PO SCH ×2 (08:29→16:50)
[2019-12-29] MEDS ORDERED: POTASSIUM CHLORIDE 20 MEQ TAB CR PO ONE ×2 (09:50→10:15)
--- NOTE | 2019-12-29 09:57 | Discharge Summary ---
HOSPITAL COURSE: Zainab Gamboa is a 74-year-old female with history of atrial fibrillation, cardiac pacemaker, aortic valve replacement, diabetes, history of stroke, hypertension, hyperlipidemia, depression, who was sent to the emergency room because of severe anemia. She received blood transfusions. She had EGD and a colonoscopy done. She was on Coumadin. At the present time, she is on heparin. Results of EGD and colonoscopy are available. We are going to discuss with Dr. Moody, p.o. anticoagulation so we can send her home. PHYSICAL EXAMINATION: GENERAL: Today, she is awake and alert. VITAL SIGNS: Temperature is 97.9 and blood pressure 131/70. HEART: Irregularly irregular. LUNGS: Clear to auscultation. ABDOMEN: Distended and soft. LABORATORY DATA: On the blood work; white count is 503, hemoglobin is 8, hematocrit 25.6. Sugar 175, potassium 3.3. We are going to replace it. COVID test came back negative. DISCHARGE DIAGNOSES: 1. Hypovolemic shock, resolved. 2. Severe anemia due to blood loss, improving. 3. Coagulopathy. 4. History of atrial fibrillation. 5. History of permanent pacemaker. 6. Aortic valve replacement. 7. Diabetes type 2. 8. Hypertension. 9. Hyperlipidemia. 10. History of cerebrovascular accident. 11. Depression. PLAN: At the present time, there is no active bleeding. Hemoglobin is stable. We need to discuss with Dr. Moody to switch her to p.o. anticoagulation. I am going to give her a prescription for trazodone to help her with insomnia problems. If she is discharged today, she needs follow up with me in one week. Please see home medication reconciliation list. All this was discussed with the patient and daughter at bedside. All questions were answered to satisfaction. MD CAMILLE Burgos/GLENN /[id number]
[2019-12-29] MEDS ORDERED: POTASSIUM CHLORIDE 10MEQ EA PO ONE (10:15)
--- NOTE | 2019-12-29 10:43 | NUR ---
PATIENT CURRENTLY RESTING UPRIGHT IN BED WATCHING TELEVISION. ACYANOTIC. NO DISTRESS NOTED. RIGHT FOREARM IV PATENT WITH HEPARIN INFUSING AT 6ML/HR SINCE THE START OF THIS SHIFT. DAUGHTER PRESENT AT BEDSIDE. CALL LIGHT IN REACH. SIDE RAILS UP X2. BED LOW AND LOCKED.
[2019-12-29] MEDS: WARFARIN SOD 5 MG TAB PO SCH (17:07)
[2019-12-29] MEDS ORDERED: DEXTROSE 50% SYRINGE 50 ML IV PRN (18:15)
--- NOTE | 2019-12-29 19:36 | NUR ---
RECEIVED P TIN BED ALERT ,DENIES PAIN .NO ACUTE DISTRESS NOTED ,,FAMILY AT THE BEDSIDE .CALL LIGHT WITH IN REACH .CONTINUE TO MONITOR
--- NOTE | 2019-12-29 20:15 | Progress Note ---
DATE: 12/29/2019 Cardiology Progress Note SUBJECTIVE: Denies chest pain or shortness of breath. Heparin IV resumed. OBJECTIVE: VITAL SIGNS: Temperature 98.1, heart rate 67, blood pressure 134/66, respiratory rate 18, and O2 saturation 100%. GENERAL: In no acute distress. Alert. NECK: No JVD. CHEST: Clear to auscultation. CARDIOVASCULAR: Irregular rate and rhythm. [place] valve opening and closure sounds. Systolic murmur. No S3. No S4. ABDOMEN: Soft. Bowel sounds positive. EXTREMITIES: No edema. CARDIOVASCULAR MEDICATIONS: Reviewed. Furosemide p.r.n., metoprolol succinate 25 mg b.i.d., atorvastatin 10 mg at bedtime, and IV heparin. STUDIES: Reviewed. Sodium 138, potassium 3.3, chloride 104, bicarbonate 26, BUN 16, creatinine 0.8, and glucose 128. White blood cells 5, hemoglobin 8, and platelets 215. INR 1.05 and PTT 70. ASSESSMENT AND PLAN: 1. A 74-year-old woman with history of mechanical mitral valve prosthesis and history of atrial fibrillation and cerebrovascular accident. 2. Anemia with gastrointestinal bleed in the setting of supratherapeutic INR. 3. Status post transcatheter aortic valve replacement. RECOMMEND: 1. Continue IV heparin bridge. 2. Monitor H and H for recurrent bleeding. 3. Given mechanical mitral valve prosthesis, history of prior stroke and atrial fibrillation, the patient will benefit from heparin IV bridge until therapeutic INR achieved. Therapeutic INR 2.5 to 3.0. Warfarin 7.5 mg daily resumed today. Continue rest of cardiovascular medications. On exam, euvolemic today. Chris Valencia MD [facility]/MODL /[id number]
[2019-12-29] MEDS: INSULIN GLARGINE 100 UNITS/ML VIAL SQ SCH (21:00)
[2019-12-29] MEDS: ATORVASTATIN 20 MG TAB PO SCH (21:00)
[2019-12-29] MEDS: HEPARIN 25,000 UNIT 700 UNIT in DEXTROSE 5% 250ML 250 ML IV SCH (21:32)
[2019-12-29] MEDS: INSULIN LISPRO 100 UNIT/1 ML 3ML VIAL SQ SCH (21:33)
[2019-12-29] MEDS: TRAZODONE HCL 50 MG TAB PO SCH (21:35)
[2019-12-30] VITALS (7 sets, daily range): BP systolic 120–145; BP diastolic 63–91
--- NOTE | 2019-12-30 02:48 | NUR ---
PTT 63-9 KEEP THE SAME RATE 66 ML/HR .CONTINUE TO MONITOR
--- NOTE | 2019-12-30 06:15 | NUR ---
PT RESTED DURING THE NIGHT ,DENIES PAIN CALL LIGHT WITH IN REACH ,CONTINUE TO MONITOR
[2019-12-30] MEDS: PANTOPRAZOL 40MG/SOD CHL 0.9% 50 ML IV SCH ×4 (06:24→18:47)
--- NOTE | 2019-12-30 07:07 | NUR ---
BEDSIDE REPORT GIVEN TO THE ONCOMING NURSE
[2019-12-30] MEDS: INSULIN LISPRO 100 UNIT/1 ML 3ML VIAL SQ SCH ×4 (07:30→21:00)
[2019-12-30] MEDS: HEPARIN 25,000 UNIT 700 UNIT in DEXTROSE 5% 250ML 250 ML IV SCH (08:58)
[2019-12-30] MEDS: DULOXETINE HCL 30 MG DELAYED RELEASE PO SCH (09:00)
[2019-12-30] MEDS: METOPROLOL SUCCINATE 25 MG TAB XL PO SCH ×2 (09:01→16:30)
--- NOTE | 2019-12-30 09:47 | Progress Note ---
DATE: 12/30/2019 Cardiology Progress Note SUBJECTIVE: No new complaints. OBJECTIVE: VITAL SIGNS: Temperature 97.7, heart rate 61, blood pressure 131/71, respiratory rate 16, and O2 saturation 97%. GENERAL: In no acute distress. Alert. NECK: No JVD. CHEST: Clear to auscultation. CARDIOVASCULAR: Irregularly irregular rate and rhythm. [place] opening and closure mechanical valve sounds. Systolic murmur. No S3. No S4. ABDOMEN: Soft. EXTREMITIES: No edema. MEDICATIONS: Reviewed. Warfarin 7.5 mg daily, heparin IV drip, metoprolol succinate 25 mg b.i.d., atorvastatin 40 mg at bedtime, and furosemide 20 mg p.r.n. STUDIES: Reviewed. Sodium 138, potassium 3.3, creatinine 0.8, and glucose 128. White blood cells 5, hemoglobin 8, and platelets 215. INR 1.05 from 12/28/2019. ASSESSMENT AND PLAN: A 74-year-old woman with mechanical mitral valve prosthesis, presenting with acute gastrointestinal bleed and anemia in the setting of supratherapeutic INR. She also has history of transcatheter aortic valve bioprosthesis and atrial fibrillation, prior stroke, hypertension, diabetes, and dyslipidemia as well as coronary artery disease. RECOMMEND: Continue current cardiovascular medications. Closely monitoring for recurrent bleeding. Monitor H and H daily. Target INR 2.5 to 3. Heparin bridge ongoing. MD MADI De Los Santos/GLENN /[id number]
--- NOTE | 2019-12-30 10:43 | Progress Note ---
DATE: 12/30/2019 SUBJECTIVE: Ms. Gamboa is a 74-year-old female with history of AFib, cardiac pacemaker, aortic valve replacement, diabetes, history of stroke, hypertension, hyperlipidemia, and depression, sent to the emergency room for severe anemia. She received blood transfusion, had EGD and colonoscopy done. She is on heparin and Coumadin was restarted. We are awaiting for the INR to be therapeutic to send her home. All this was discussed with Dr. Moody. PHYSICAL EXAMINATION: GENERAL: Today, she is awake and alert. She is feeling better. VITAL SIGNS: Temperature is 97.7, blood pressure 131/71. HEART: Irregularly irregular. LUNGS: Clear to auscultation. ABDOMEN: Soft. LABORATORY DATA: On the blood work, white count is 5.02, hemoglobin 8, and hematocrit 25.6. Blood sugar 143. COVID test came back negative. We are going to request an INR. ASSESSMENT: 1. Hypovolemic shock, resolved. 2. Severe anemia due to blood loss. 3. Coagulopathy. 4. History of atrial fibrillation. 5. Presence of permanent pacemaker. 6. Aortic valve replacement. 7. Diabetes type 2. 8. Hypertension. 9. Hyperlipidemia. 10. History of cerebrovascular accident. 11. Depression. PLAN: Plan at present time is to continue to monitor H and H, ADA diet, sliding scale with insulin. Continue heparin drip. Restart Coumadin. Target INR between 2.5 and 3.5. Once INR is therapeutic, the patient is going to be able to go home. I spent more than 35 minutes examining patient, reviewing overnight event and discussing blood results and the plan with the patient and daughter at bedside. All questions were answered to satisfaction. MD CAMILLE Burgos/MODL /[id number]
[2019-12-30] MEDS: WARFARIN SOD 5 MG TAB PO SCH (16:32)
--- NOTE | 2019-12-30 18:39 | NUR ---
Nutrition Screen Note RD Recommendation for Physician: - Recommend 1800 ADA to diet Plan of Care: RD following, monitoring for tolerance and adequacy Nutrition reason for involvement: LOS Primary Diagnose(s): anemia PMH: Afib, pacemaker, CVA, HTN, HLD Ht: 64 in Wt: 120 lb BMI: 20.6 kg/m2 IBW: [address] Assessment: 12/29: 74 YOF admitted for anemia, evaluated today per LOS. 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 Pt eating well, 75-100% of meals. No GI distress. Chart reviewed. Labs and meds reviewed. Will continue to monitor. Current Diet: GI Soft Malnutrition Evaluation (12/30/19) The patient does not meet criteria for a specified degree of malnutrition at this time. Will re-evaluate at follow-up as appropriate. Diet Education Needs Assessment: diet education not indicated. Diet tolerance: tolerating po Nutrition Care Level: low Signed: Pearl Strong RD, LD, [facility]
--- NOTE | 2019-12-30 19:23 | NUR ---
Change of shift report given to Dorie Snyder RN.
[2019-12-30] MEDS: INSULIN GLARGINE 100 UNITS/ML VIAL SQ SCH (21:00)
[2019-12-30] MEDS: TRAZODONE HCL 50 MG TAB PO SCH (21:00)
[2019-12-30] MEDS: ATORVASTATIN 20 MG TAB PO SCH (21:00)
--- NOTE | 2019-12-30 21:30 | NUR ---
Change of shife report given by AM nurse. Walking rounds completed.
[2019-12-31] VITALS (7 sets, daily range): BP systolic 115–140; BP diastolic 62–70
[2019-12-31] MEDS: PANTOPRAZOL 40MG/SOD CHL 0.9% 50 ML IV SCH ×2 (05:00→05:45)
[2019-12-31 05:31] LABS: MEAN CORPUSCULAR HEMOGLOBIN 24.9 pg (28-32); MEAN CORPUSCULAR HGB CONC 29.9 g/dL (31-35); MEAN CORPUSCULAR VOLUME 83.4 fL (81-99); PLATELET COUNT 161 x10e3/uL (140-360); RED BLOOD COUNT 2.77 x10e6/uL (3.6-5.1); RED CELL DISTRIBUTION WIDTH 18.9 % (11.7-14.4)
[2019-12-31 05:41] LABS: INR 1.07; PROTHROMBIN TIME 14.5 seconds (11.9-14.5)
[2019-12-31 05:46] LABS: ANION GAP 9.3 mmol/L (8-16); BLOOD UREA NITROGEN 19 mg/dL (7-26); BUN/CREATININE RATIO 23 (6-25); CALCIUM 7.9 mg/dL (8.4-10.2); CARBON DIOXIDE 24 mmol/L (22-29); CHLORIDE 110 mmol/L (98-107); CREATININE, SERUM 0.84 mg/dL (0.57-1.11); EST GLOMERULAR FILTRATION RATE > 60 ML/MIN (60-); GLUCOSE 64 mg/dL (74-118); POTASSIUM 4.3 mmol/L (3.5-5.1); SODIUM 139 mmol/L (136-145)
[2019-12-31 05:48] LABS: HEMATOCRIT 23.1 % (34.2-44.1); HEMOGLOBIN 6.9 g/dL (12.0-16.0)
--- NOTE | 2019-12-31 07:12 | NUR ---
H and H 65.9/23.1. Called Dr Roe to inform. Received order to transfuse 2 units of PRBC. Information given to AM nurse.
[2019-12-31] MEDS: INSULIN LISPRO 100 UNIT/1 ML 3ML VIAL SQ SCH ×5 (07:30→21:00)
[2019-12-31] MEDS ORDERED: SODIUM CHLORIDE 0.9% 250ML 250 ML IV ONE (07:45)
[2019-12-31] MEDS: HEPARIN 25,000 UNIT 700 UNIT in DEXTROSE 5% 250ML 250 ML IV SCH (09:07)
--- NOTE | 2019-12-31 10:02 | Progress Note ---
DATE: 12/31/2019 SUBJECTIVE: Ms. Gamboa is a 74-year-old female with history of AFib, cardiac pacemaker, aortic valve replacement, diabetes, history of stroke, hypertension, hyperlipidemia, and depression, who came to the emergency room with severe anemia, had EGD and colonoscopy done. She required blood transfusions several times. Hemoglobin and hematocrit are low today, so we are going to transfuse her. Due to her high risk for complication, she requires anticoagulation. She is on heparin drip and Coumadin was restarted. PHYSICAL EXAMINATION: GENERAL: She is awake and alert. She is feeling a little better. VITAL SIGNS: Temperature is 97.7, blood pressure 115/70. HEART: Irregularly irregular. LUNGS: Poor inspiratory effort. ABDOMEN: Soft. LABORATORY DATA: On the blood work, hemoglobin 6.9, hematocrit 23.1, and white count 4.39. Potassium 4.3, creatinine is 0.84. INR today is 1.07. ASSESSMENT: 1. Hypovolemic shock, resolved. 2. Severe anemia due to blood loss. 3. Coagulopathy. 4. History of atrial fibrillation. 5. Presence of permanent pacemaker. 6. Aortic valve replacement. 7. Diabetes type 2. 8. Hypertension. 9. Hyperlipidemia. 10. History of cerebrovascular accident. 11. Depression. PLAN: Plan at present time is to transfuse the patient with 2 units of packed red blood cells. Monitor H and H. Continue heparin drip and Coumadin. ADA diet and sliding scale with insulin. All this was discussed in detail with the patient and daughter at bedside. All questions were answered to satisfaction. Discussed with her. She is high risk for anticoagulation and she needs to be anticoagulated due to old history of stroke, valve replacement, and atrial fibrillation. They seem to understand what I was saying and all questions were answered to satisfaction. I spent more than 35 minutes examining the patient, reviewing overnight events and lab results, and discussing plan of care with the patient and family. MD CAMILLE Burgos/GLENN /[id number]
[2019-12-31] MEDS: DULOXETINE HCL 30 MG DELAYED RELEASE PO SCH (10:10)
[2019-12-31] MEDS: METOPROLOL SUCCINATE 25 MG TAB XL PO SCH ×2 (10:10→18:54)
[2019-12-31] MEDS ORDERED: PANTOPRAZOLE SOD 40 MG TABEC PO ONE (10:30)
[2019-12-31 11:02] LABS: EOSINOPHILS % (MANUAL) 4 % (0-7); LYMPHOCYTES % (MANUAL) 53 % (19-48); MONOCYTES % (MANUAL) 6 % (3.4-9.0); NEUTROPHILS % (MANUAL) 36 % (40-74)
[2019-12-31] MEDS ORDERED: HEPARIN 25,000 UNIT DRIP IV ONE (15:39)
--- NOTE | 2019-12-31 15:56 | NUR ---
CALLED DR. Isabella MIXON REGARDING LOW HEMOGLOBIN OF 6.9 AND PATIENT IS ON COUMADIN AND HEPARIN.
[2019-12-31] MEDS: WARFARIN SOD 5 MG TAB PO SCH (17:00)
--- NOTE | 2019-12-31 19:20 | NUR ---
given order to Mane to do 0100 am lab with 0600am lab,
--- NOTE | 2019-12-31 19:33 | NUR ---
Received change of shift report from AM nurse. Walking rounds completed.
[2019-12-31 19:42] LABS: HEMATOCRIT 30.2 % (34.2-44.1); HEMOGLOBIN 9.4 g/dL (12.0-16.0)
[2019-12-31] MEDS ORDERED: ACETAMINOPHEN 325 MG TAB PO PRN (20:30)
[2019-12-31] MEDS: TRAZODONE HCL 50 MG TAB PO SCH (20:41)
[2019-12-31] MEDS: ATORVASTATIN 20 MG TAB PO SCH (20:41)
[2019-12-31] MEDS: PANTOPRAZOLE SOD 40 MG TABEC PO SCH (20:41)
[2019-12-31] MEDS: INSULIN GLARGINE 100 UNITS/ML VIAL SQ SCH (21:00)
--- NOTE | 2019-12-31 21:35 | Progress Note ---
DATE: 12/31/2019 Cardiology Progress Note SUBJECTIVE: Ms. Gamboa denies any chest pain or shortness of breath. She denies any gross bleeding. She is, however, status post one point drop in hemoglobin and is scheduled to receive additional PRBC transfusion today. OBJECTIVE: VITAL SIGNS: Temperature 98.6, heart rate 68, blood pressure 118/63, respiratory rate 16, and O2 saturation 100%. GENERAL: In no acute distress. Alert. NECK: No JVD. CHEST: Clear to auscultation. CARDIOVASCULAR: Irregularly irregular rate and rhythm. [place] opening and closure valve sounds. No S3 or S4. ABDOMEN: Soft. EXTREMITIES: No edema. CARDIOVASCULAR MEDICATIONS: 1. Reviewed. Warfarin 7.5 mg daily, IV heparin drip held, pending additional H and H monitoring post PRBC transfusion and monitor for any active bleeding prior to resuming. 2. Metoprolol succinate 25 mg b.i.d., atorvastatin 20 mg at bedtime, furosemide p.r.n. LABORATORY DATA: Studies reviewed. Creatinine 0.8, glucose 64, white blood cells 4, hemoglobin 6.9, platelets are 161. INR 1, PT 14.5, PTT 49.4. ASSESSMENT AND PLAN: A 74-year-old woman with mechanical mitral valve prosthesis, history of transcatheter aortic valve replacement, atrial fibrillation, coronary artery disease, history of chronic systolic heart failure, presenting with anemia and gastrointestinal bleed. Status post colonoscopy and EGD. Given drop in H and H, hold heparin today and following PRBC transfusions, recheck new baseline H and H after 2 hours and again, in a.m. tomorrow. Depending on this, any evidence of gross bleeding, can consider resuming anticoagulation with IV heparin. Appreciate GI input. Continue rest of cardiovascular medications and monitor. MD MADI De Los Santos/GLENN /[id number]
--- NOTE | 2019-12-31 22:35 | NUR ---
Patient off the floor to [facility]
[2020-01-01] VITALS (7 sets, daily range): BP systolic 126–138; BP diastolic 68–82
--- NOTE | 2020-01-01 00:39 | Diagnostic Imaging Report ---
Tagged-RBC GI Bleed Study Clinical information: 74-year-old female with anemia requiring transfusion. Discussion: The patient's own red blood cells were labeled with 26 mCi of technetium-99m pertechnetate using the in vitro method (UltraTag). Dynamic images of the abdomen were obtained through 60 minutes. Distribution of tracer activity appears physiologic throughout the abdomen. No abnormal accumulation of tracer is seen within the gastrointestinal lumen. Impression: No scan evidence of active gastrointestinal bleeding at this time. Signed by: Dr. Aleida Zhang M.D. on 01/01/2020 12:35 AM
[2020-01-01 05:23] LABS: BASOPHILS % 0.4 % (0.0-1.0); EOSINOPHILS # (AUTO) 0.1 (0.0-0.4); EOSINOPHILS % 3.1 % (0.0-6.0); HEMATOCRIT 28.3 % (34.2-44.1); HEMOGLOBIN 8.9 g/dL (12.0-16.0); LYMPHOCYTES # (AUTO) 0.9 (1.0-3.2); LYMPHOCYTES % 20.5 % (18.0-39.1); MEAN CORPUSCULAR HEMOGLOBIN 27.1 pg (28-32); MEAN CORPUSCULAR HGB CONC 31.4 g/dL (31-35); MEAN CORPUSCULAR VOLUME 86.3 fL (81-99); MONOCYTES # (AUTO) 0.4 (0.2-0.8); MONOCYTES % 8.4 % (4.4-11.3); NEUTROPHILS % 66.9 % (38.7-80.0); PLATELET COUNT 146 x10e3/uL (140-360); RED BLOOD COUNT 3.28 x10e6/uL (3.6-5.1); RED CELL DISTRIBUTION WIDTH 17.3 % (11.7-14.4)
--- NOTE | 2020-01-01 07:14 | NUR ---
Patient resting quietly at this time with family at bedside.
[2020-01-01] MEDS: INSULIN LISPRO 100 UNIT/1 ML 3ML VIAL SQ SCH ×4 (07:30→20:44)
[2020-01-01 08:42] LABS: INR 1.2; PROTHROMBIN TIME 15.9 seconds (11.9-14.5)
[2020-01-01] MEDS: METOPROLOL SUCCINATE 25 MG TAB XL PO SCH ×2 (09:00→17:00)
[2020-01-01] MEDS: DULOXETINE HCL 30 MG DELAYED RELEASE PO SCH (09:00)
[2020-01-01] MEDS: PANTOPRAZOLE SOD 40 MG TABEC PO SCH ×2 (09:00→20:44)
--- NOTE | 2020-01-01 09:43 | Progress Note ---
DATE: 01/01/2020 SUBJECTIVE: Ms. Gamboa is a 74-year-old female with history of atrial fibrillation, cardiac pacemaker, aortic valve replacement, diabetes, history of stroke, hypertension, hyperlipidemia, and depression, came to the emergency room with anemia, had an EGD and colonoscopy done. She required 2 units of red blood cells yesterday because hemoglobin and hematocrit were low. Heparin was restarted. PHYSICAL EXAMINATION: GENERAL: She is awake and alert. She wants to go home. VITAL SIGNS: Temperature is 97.7, blood pressure 138/80. HEART: Irregularly irregular. LUNGS: Clear to auscultation. ABDOMEN: Soft. LABORATORY DATA: On the blood work, white count is 4.53, hemoglobin is 8.9, and hematocrit is 28.3. COVID test was negative. Potassium 4.3, creatinine is 0.84. INR today is 1.20. ASSESSMENT: 1. Hypovolemic shock, resolved. 2. Severe anemia due to blood loss. 3. History of atrial fibrillation. 4. Presence of permanent pacemaker. 5. Aortic valve replacement. 6. Diabetes type 2. 7. Hypertension. 8. Hyperlipidemia. 9. History of cerebrovascular accident. 10. Depression. PLAN: At the present time is to continue ADA diet, sliding scale. Continue to monitor H and H and she had 2 units of blood cells done. She had a GI scan yesterday that came back also negative. Continue heparin drip. Continue Coumadin. Monitor H and H and monitor for any bleeding. All this was discussed in extension with the patient and family. All questions were answered to satisfaction. They understand there is a high risk of rebleeding due to anticoagulation, but if the patient is not on anticoagulation, she has a very high risk of embolic stroke, heart problems. They understood and agreed. All questions were answered to satisfaction. I spent more than 35 minutes examining the patient, reviewing overnight events, lab results, and discussing plan of care with family. MD CAMILLE Burgos/GLENN /[id number]
[2020-01-01] MEDS ORDERED: HEPARIN SOD (PORCINE) 1000 UNIT/ML SDV ONE (13:59)
[2020-01-01] MEDS: WARFARIN SOD 5 MG TAB PO SCH (17:00)
--- NOTE | 2020-01-01 18:11 | NUR ---
PT UP IN CHAIR,GLUCOSE 226,PATIENT AND FAMILY REFUSED INSULIN.DENS PAIN ,DR MIXON HERE
--- NOTE | 2020-01-01 18:59 | NUR ---
Received change of shift report from AM nurse.
[2020-01-01] MEDS: HEPARIN 25,000 UNIT 700 UNIT in DEXTROSE 5% 250ML 250 ML IV SCH (19:00)
--- NOTE | 2020-01-01 20:21 | Progress Note ---
DATE: 01/01/2020 Cardiology Progress Note SUBJECTIVE: Ms. Gamboa denies any chest pain or shortness of breath. She denies any gross bleeding. She has not had any bowel movement. OBJECTIVE: VITAL SIGNS: Temperature 98.8, heart rate 63, blood pressure 138/72, respiratory rate 17, O2 saturation 97%, BMI 20. GENERAL: No acute distress, alert. NECK: No JVD. CHEST: Clear to auscultation. CARDIOVASCULAR: Irregular rate and rhythm. [place] opening and closure of valve sounds. No S3 or S4. ABDOMEN: Soft. Bowel sounds positive. EXTREMITIES: Trace edema. CARDIOVASCULAR MEDICATIONS: Reviewed. Warfarin 7.5 mg daily, metoprolol succinate 25 mg b.i.d., atorvastatin 20 mg at bedtime. LABORATORY DATA: Studies reviewed. Creatinine 0.8. White blood cells 4.5, hemoglobin 8.9, platelets of 146. INR 1.2, PT 15.9, PTT 65. AST 33, ALT 16, alkaline phosphatase 75. ASSESSMENT AND PLAN: A 74-year-old woman presents with aortic valve bioprosthesis, mechanical mitral valve, atrial fibrillation, history of cerebrovascular accident, anemia and gastrointestinal bleed, hypertension, diabetes, dyslipidemia, coronary artery disease. Recommend continue heparin and warfarin. Had negative workup for active bleeding. H and H remained stable post transfusion. No gross bleeding observed clinically. High risk for thromboembolic events, off anticoagulation given mechanical valve in mitral position and history of atrial fibrillation and cerebrovascular accident. Continue rest of cardiovascular medications. MD MADI De Los Santos/GLENN /[id number]
[2020-01-01] MEDS: ATORVASTATIN 20 MG TAB PO SCH (20:44)
[2020-01-01] MEDS: TRAZODONE HCL 50 MG TAB PO SCH (20:44)
[2020-01-01] MEDS: INSULIN GLARGINE 100 UNITS/ML VIAL SQ SCH (20:50)
[2020-01-02] VITALS (8 sets, daily range): BP systolic 109–149; BP diastolic 61–81
--- NOTE | 2020-01-02 | NUR ---
Patient received tylenol for pain. Family at the bedside. Continue monitor.
--- NOTE | 2020-01-02 05:44 | NUR ---
Patient resting quitly at this time.
[2020-01-02 05:53] LABS: BASOPHILS % 0.4 % (0.0-1.0); EOSINOPHILS # (AUTO) 0.2 (0.0-0.4); EOSINOPHILS % 3.8 % (0.0-6.0); HEMATOCRIT 28.6 % (34.2-44.1); HEMOGLOBIN 8.8 g/dL (12.0-16.0); LYMPHOCYTES # (AUTO) 1.1 (1.0-3.2); LYMPHOCYTES % 24.3 % (18.0-39.1); MEAN CORPUSCULAR HGB CONC 30.8 g/dL (31-35); MEAN CORPUSCULAR VOLUME 84.4 fL (81-99); MONOCYTES # (AUTO) 0.4 (0.2-0.8); MONOCYTES % 9.1 % (4.4-11.3); NEUTROPHILS # (AUTO) 2.8 (2.1-6.9); NEUTROPHILS % 61.5 % (38.7-80.0); PLATELET COUNT 149 x10e3/uL (140-360); RED BLOOD COUNT 3.39 x10e6/uL (3.6-5.1); RED CELL DISTRIBUTION WIDTH 17.8 % (11.7-14.4)
[2020-01-02] MEDS: INSULIN LISPRO 100 UNIT/1 ML 3ML VIAL SQ SCH ×4 (07:30→21:00)
[2020-01-02 08:15] LABS: INR 1.14; PROTHROMBIN TIME 15.2 seconds (11.9-14.5)
[2020-01-02] MEDS: DULOXETINE HCL 30 MG DELAYED RELEASE PO SCH (09:12)
[2020-01-02] MEDS: PANTOPRAZOLE SOD 40 MG TABEC PO SCH ×2 (09:12→21:02)
[2020-01-02] MEDS: METOPROLOL SUCCINATE 25 MG TAB XL PO SCH ×2 (09:13→17:59)
--- NOTE | 2020-01-02 15:54 | Progress Note ---
DATE: 01/02/2020 Internal Medicine Progress Note SUBJECTIVE: The patient is doing well. No significant complaint. No evidence of any active bleeding. The patient had EGD, colonoscopy without active bleeding. BUN and creatinine completely normal. Hemoglobin stable. She has a history of aortic valve bioprosthesis with mitral valve, mechanical mitral valve, atrial fibrillation, history of CVA, anemia, gastrointestinal bleed, hypertension, diabetes, lipidemia, coronary artery disease. Also, she had a negative GI workup for active bleeding. Hemoglobin and hematocrit remained stable after the blood transfusion. No gross bleeding is observed. She is on a heparin drip on Coumadin also. We will continue with anticoagulation. PHYSICAL EXAMINATION: HEART: Showed irregularly irregular heart rate. Normal S1, S2 sound. LUNGS: Clear bilaterally. ABDOMEN: Soft. EXTREMITIES: Show no evidence of cyanosis or hematoma. VITAL SIGNS: Blood pressure 149/81, temperature 98.3, heart rate 62 per minute, respiratory rate 19 per minute, O2 saturation 99%. LABORATORY DATA: CBC; white blood count 4.49, hemoglobin 8.8, hematocrit 28.6, platelet count 149,000. On the BMP; sodium 139, potassium 4.3, chloride 110, CO2 24, BUN 19, creatinine 0.84, glucose is 203, calcium 7.9. FINAL IMPRESSION: 1. Acute anemia with negative gastrointestinal workup. 2. Chronic atrial fibrillation. 3. Uncontrolled diabetes mellitus type 2. 4. Aortic stenosis. 5. [employer] mitral valve. PLAN OF TREATMENT: As per Cardiology recommendation we are going to continue heparin drip. Continue with Coumadin. Once we get an INR of 2.5-3.5 then heparin can be discontinued. Continue Tylenol 650 mg q.6 hours as needed for pain or fever, Lipitor 20 mg daily, Cymbalta 30 mg daily. Continue with Humalog as per sliding scale. Continue Lantus 20 units at bedtime, metoprolol 25 mg twice a day, Zofran 4 mg IV q.4 hours as needed for nausea and vomiting, Protonix 40 mg twice a day, trazodone 50 mg daily, and Coumadin 7.5 mg daily. PT and INR daily is ordered also. Labs; PT 15.2, INR 1.14, PTT is 71.7, so we will continue heparin drip until INR reaches 2.5-3.5, then we can discontinue heparin drip. Continue Coumadin at current dose. Cardiology has been seeing the patient also. The patient is high risk for thromboembolic disease so she cannot be discharged right now until we obtain on good PT and INR. Discussed with the patient's family. Time spent 45 minutes. MD ANGELLA Morrow/GLENN /[id number]
[2020-01-02] MEDS: WARFARIN SOD 5 MG TAB PO SCH (17:59)
[2020-01-02] MEDS ORDERED: BISACODYL 10 MG SUPP PR ONE (19:45)
--- NOTE | 2020-01-02 20:41 | Progress Note ---
DATE: 01/02/2020 Cardiology Progress Note. SUBJECTIVE: Ms. Gamboa denies any gross bleeding. She has no chest pain or shortness of breath. She otherwise has no complaints today. OBJECTIVE: VITAL SIGNS: Temperature 98.3, heart rate 62, blood pressure 149/81, respiratory rate 19, O2 saturation 99%. GENERAL: In no acute distress, alert. NECK: No JVD. CHEST: Clear to auscultation. CARDIOVASCULAR: Irregularly irregular rate and rhythm. [place] valve opening and closure sounds. No S3 or S4. Systolic ejection murmur. ABDOMEN: Soft. Bowel sounds positive. EXTREMITIES: Normothermic. No edema. CARDIOVASCULAR MEDICATIONS: Reviewed. 1. Warfarin 10 mg daily. 2. Atorvastatin 20 mg at bedtime. 3. Metoprolol succinate 25 mg b.i.d. STUDIES: Reviewed. Sodium 139, potassium 4.3, chloride 110, bicarbonate 24, BUN 19, creatinine 0.84, glucose 64. White blood cells 4.4, hemoglobin 8.8, platelets 149. PT 15.2, PTT 71.7, INR 1.14, AST 33, ALT 16. ASSESSMENT AND PLAN: A 74-year-old woman with history of mechanical valve in mitral position, history of transcatheter aortic valve replacement, bioprosthetic. History of atrial fibrillation and CVA. History of diabetes, hypertension, dyslipidemia, chronic systolic heart failure and CAD. RECOMMENDATIONS: Up titrate warfarin to 10 mg daily and continue daily INR checks. Target INR 2.5 to 3. Continue rest of cardiovascular medications and monitor for recurrent bleeding. H and H remain stable. Would benefit from addition of aspirin 325 mg daily, however, at this point, would allow 1st at least one week on warfarin 2.5 to 3 target once reached and monitoring for any recurrent bleeding. Further workup by GI as outpatient including small-bowel assessment with possible capsule endoscopy. Depending on this, decide on adding the aspirin. Continue rest of cardiovascular medications. Chris Valencia MD AFV/MODL /[id number]
[2020-01-02] MEDS: INSULIN GLARGINE 100 UNITS/ML VIAL SQ SCH (21:00)
[2020-01-02] MEDS: TRAZODONE HCL 50 MG TAB PO SCH (21:02)
[2020-01-02] MEDS: ATORVASTATIN 20 MG TAB PO SCH (21:02)
[2020-01-02] MEDS ORDERED: MAGNESIUM HYDROXIDE 30 ML UDC PO ONE (22:00)
[2020-01-03] VITALS (8 sets, daily range): BP systolic 121–148; BP diastolic 64–75
[2020-01-03] MEDS ORDERED: MAGNESIUM HYDROXIDE 30 ML UDC PO ONE (05:45)
[2020-01-03] MEDS ORDERED: HEPARIN 25,000 UNIT 25,000 UNIT in DEXTROSE 5% 250ML 250 ML IV SCH (06:15)
--- NOTE | 2020-01-03 06:20 | NUR ---
Dr. Moody ordered to renew Heparin Drip received.
[2020-01-03] MEDS: HEPARIN 25,000 UNIT 700 UNIT in DEXTROSE 5% 250ML 250 ML IV SCH (06:39)
[2020-01-03 09:03] LABS: BASOPHILS % 0.4 % (0.0-1.0); EOSINOPHILS # (AUTO) 0.2 (0.0-0.4); EOSINOPHILS % 3.2 % (0.0-6.0); HEMATOCRIT 29.1 % (34.2-44.1); HEMOGLOBIN 8.8 g/dL (12.0-16.0); LYMPHOCYTES # (AUTO) 1.1 (1.0-3.2); LYMPHOCYTES % 22.5 % (18.0-39.1); MEAN CORPUSCULAR HEMOGLOBIN 25.7 pg (28-32); MEAN CORPUSCULAR HGB CONC 30.2 g/dL (31-35); MEAN CORPUSCULAR VOLUME 84.8 fL (81-99); MONOCYTES # (AUTO) 0.4 (0.2-0.8); NEUTROPHILS % 64.5 % (38.7-80.0); PLATELET COUNT 132 x10e3/uL (140-360); RED BLOOD COUNT 3.43 x10e6/uL (3.6-5.1)
[2020-01-03] MEDS: INSULIN LISPRO 100 UNIT/1 ML 3ML VIAL SQ SCH ×4 (09:16→21:51)
[2020-01-03 09:18] LABS: INR 1.27; PROTHROMBIN TIME 16.6 seconds (11.9-14.5)
[2020-01-03] MEDS: DULOXETINE HCL 30 MG DELAYED RELEASE PO SCH (09:23)
[2020-01-03] MEDS: PANTOPRAZOLE SOD 40 MG TABEC PO SCH ×2 (09:23→21:49)
[2020-01-03] MEDS: METOPROLOL SUCCINATE 25 MG TAB XL PO SCH ×2 (09:24→17:25)
[2020-01-03 09:27] LABS: ALANINE AMINOTRANSFERASE 15 IU/L (0-55); ALKALINE PHOSPHATASE 79 IU/L (40-150); BLOOD UREA NITROGEN 18 mg/dL (7-26); BUN/CREATININE RATIO 21 (6-25); CALCIUM 8.4 mg/dL (8.4-10.2); CARBON DIOXIDE 22 mmol/L (22-29); CHLORIDE 107 mmol/L (98-107); CREATININE, SERUM 0.84 mg/dL (0.57-1.11); EST GLOMERULAR FILTRATION RATE > 60 ML/MIN (60-); GLUCOSE 153 mg/dL (74-118); SODIUM 137 mmol/L (136-145)
[2020-01-03] MEDS: WARFARIN SOD 5 MG TAB PO SCH (17:11)
--- NOTE | 2020-01-03 17:49 | Progress Note ---
DATE: 01/03/2020 Internal Medicine Progress Note SUBJECTIVE: The patient is doing well. No significant complaint. PHYSICAL EXAMINATION: VITAL SIGNS: Blood pressure 137/71, temperature 98.6, heart rate 68 per minute, respiratory rate 18 per minute, and oxygen saturation 100%. ABDOMEN: Soft and nontender. No distention. No visceromegaly. LABORATORY DATA: On the BMP; sodium 137, potassium 5.0, chloride 107, CO2 22, BUN 18, creatinine 0.84, GFR 60, and glucose 153. Total bilirubin 0.5, AST 22, ALT 15, and alkaline phosphatase 79. Total protein 6.1, albumin 3.0, and globulin 3.1. CBC showed white blood count 4.66, hemoglobin 8.8, hematocrit 29.1, and platelet count 132,000. COVID test is negative. FINAL IMPRESSION: 1. Acute anemia. 2. Chronic atrial fibrillation. 3. Uncontrolled diabetes mellitus type 2. 4. Aortic stenosis. 5. Mechanical mitral valve. PLAN OF TREATMENT: Since the patient does have mechanical mitral valve, aortic stenosis and atrial fibrillation, she is high risk for thromboembolic disease. Therefore, the patient is getting heparin and Coumadin. Once the INR is 2.5 to 3.5, then we can discontinue heparin and we can discharge the patient home. The patient continues with the heparin drip. Monitoring PT and monitoring PTT. Continue Tylenol 650 mg q.6 hours as needed for mild pain. Continue Lipitor 20 mg daily. Continue Dulcolax 10 mg at once and fluoxetine 30 mg daily. Continue monitoring blood sugar before meals and at bedtime. Continue Lantus 20 units at bedtime as she got it before blood transfusion. Continue with metoprolol 25 mg twice a day, Zofran 4 mg IV q.4 hours as needed, Protonix 40 mg twice a day, trazodone 50 mg at bedtime, and Coumadin 10 mg daily. Continue monitoring PT and INR. The last PT 16.6 and INR 1.27 . I discussed the case with the family at bedside. Time spent 45 minutes. MD ANGELLA Morrow/MODL /[id number]
[2020-01-03] MEDS: TRAZODONE HCL 50 MG TAB PO SCH (21:49)
[2020-01-03] MEDS: ATORVASTATIN 20 MG TAB PO SCH (21:49)
[2020-01-03] MEDS: INSULIN GLARGINE 100 UNITS/ML VIAL SQ SCH (21:50)
[2020-01-04] VITALS (7 sets, daily range): BP systolic 126–152; BP diastolic 64–84
[2020-01-04] MEDS: HEPARIN 25,000 UNIT 700 UNIT in DEXTROSE 5% 250ML 250 ML IV SCH (06:24)
--- NOTE | 2020-01-04 08:07 | NUR ---
Pt received in bed with eyes open. 0 s/s of acute distress noted at this time. Breaths are even and unlabored pt continues on heparin drip. Family at the bedside.
[2020-01-04] MEDS: INSULIN LISPRO 100 UNIT/1 ML 3ML VIAL SQ SCH ×4 (08:30→21:12)
[2020-01-04] MEDS: DULOXETINE HCL 30 MG DELAYED RELEASE PO SCH (09:02)
[2020-01-04] MEDS: PANTOPRAZOLE SOD 40 MG TABEC PO SCH ×2 (09:02→21:13)
[2020-01-04] MEDS: METOPROLOL SUCCINATE 25 MG TAB XL PO SCH ×2 (09:03→16:45)
[2020-01-04 09:38] LABS: INR 1.74; PROTHROMBIN TIME 21.4 seconds (11.9-14.5)
--- NOTE | 2020-01-04 11:28 | Progress Note ---
DATE: 01/04/2020 SUBJECTIVE: Ms. Gamboa is a 74-year-old female with history of atrial fibrillation, cardiac pacemaker, aortic valve replacement, diabetes, history of stroke, hypertension, hyperlipidemia, depression, came to the emergency room with severe anemia, had EGD and colonoscopy done as well as small bowel series. So far, the source of bleeding is not very clear. Hemoglobin and hematocrit have been stable, but the patient required several units of blood. She is on heparin and Coumadin. PHYSICAL EXAMINATION: GENERAL: She is awake and alert. She wants to go home. VITAL SIGNS: Temperature is 98.2, blood pressure 126/75. HEART: Irregularly irregular. LUNGS: Clear to auscultation. ABDOMEN: Soft. LABORATORY DATA: On the blood work, INR from today is pending. COVID negative. Hemoglobin 8.8 and hematocrit 29.1 from yesterday. Sugar 176. ASSESSMENT: 1. Hypovolemic shock, resolved. 2. Severe anemia due to blood loss, improving. 3. History of atrial fibrillation. 4. Presence of permanent pacemaker. 5. Aortic valve replacement. 6. Diabetes type 2. 7. Hypertension. 8. Hyperlipidemia. 9. History of CVA. 10. Depression. PLAN: At the present time is to continue ADA diet, sliding scale with insulin. She is receiving IV iron. Continue to monitor hemoglobin and hematocrit, PT and INR daily. Target INR is between 2.5 and 3. Continue heparin drip and Coumadin. Once we achieve therapeutic level on the INR, the patient is going to be able to go home. All this was discussed in extension with the patient and family member at bedside. All questions were answered to satisfaction. I spent more than 30 minutes examining the patient, reviewing overnight events, lab results, and discussing plan of care with them. MD CAMILLE Burgos/GLENN /[id number]
--- NOTE | 2020-01-04 11:48 | Progress Note ---
DATE: 01/04/2020 Cardiology Progress note SUBJECTIVE: Ms. Gamboa has no new complaints on exam today. OBJECTIVE: VITAL SIGNS: Temperature 98.2, heart rate 60, respiratory rate 18, blood pressure 126/75, and O2 saturation 96% on room air. GENERAL: In no acute distress. NECK: No JVD. Supple. CHEST: Clear to auscultation. CARDIOVASCULAR: Irregular rate and rhythm. Normal opening and closure of [place] valve with systolic ejection murmur. No S3 or S4. ABDOMEN: Soft. Bowel sounds positive. EXTREMITIES: No edema. Warm extremities. CARDIOVASCULAR MEDICATIONS: Reviewed. Metoprolol succinate 25 mg b.i.d., atorvastatin 20 mg at bedtime, warfarin 10 mg daily, furosemide 10 mg p.r.n., and IV heparin bridge. White blood cells 4.6, hemoglobin 8.8, and platelets 132. INR pending. PTT 78. INR from yesterday was 1.27, creatinine 0.8, and glucose 176. ASSESSMENT AND PLAN: Mechanical mitral valve, atrial fibrillation, history of stroke, hypertension, transcatheter aortic valve replacement, diabetes, dyslipidemia, chronic systolic heart failure, and coronary artery disease. RECOMMEND: Continue current cardiovascular medications. Await therapeutic INR. MD MADI De Los Santos/GLENN /[id number]
[2020-01-04] MEDS ORDERED: ONDANSETRON HCL 4 MG ORAL DISINTEGRATING TAB PO PRN (13:00)
[2020-01-04] MEDS: WARFARIN SOD 5 MG TAB PO SCH (16:42)
--- NOTE | 2020-01-04 19:15 | NUR ---
RECEIVED REPORT FROM PREVIOUS NURSE. CALL LIGHT WITHIN REACH. PATIENT IN BED.
[2020-01-04] MEDS: ATORVASTATIN 20 MG TAB PO SCH (21:13)
[2020-01-04] MEDS: INSULIN GLARGINE 100 UNITS/ML VIAL SQ SCH (21:13)
[2020-01-04] MEDS: TRAZODONE HCL 50 MG TAB PO SCH (21:13)
[2020-01-05] VITALS (9 sets, daily range): BP systolic 121–149; BP diastolic 60–85
[2020-01-05 05:27] LABS: BASOPHILS % 0.2 % (0.0-1.0); EOSINOPHILS # (AUTO) 0.2 (0.0-0.4); EOSINOPHILS % 3.6 % (0.0-6.0); HEMATOCRIT 27.2 % (34.2-44.1); HEMOGLOBIN 8.4 g/dL (12.0-16.0); LYMPHOCYTES % 23.4 % (18.0-39.1); MEAN CORPUSCULAR HGB CONC 30.9 g/dL (31-35); MEAN CORPUSCULAR VOLUME 84.2 fL (81-99); MONOCYTES # (AUTO) 0.4 (0.2-0.8); MONOCYTES % 8.8 % (4.4-11.3); NEUTROPHILS # (AUTO) 2.7 (2.1-6.9); NEUTROPHILS % 63.3 % (38.7-80.0); RED BLOOD COUNT 3.23 x10e6/uL (3.6-5.1); RED CELL DISTRIBUTION WIDTH 18.2 % (11.7-14.4)
[2020-01-05 05:29] LABS: INR 1.9
[2020-01-05 05:30] LABS: PLATELET COUNT 109 x10e3/uL (140-360)
--- NOTE | 2020-01-05 07:16 | NUR ---
GAVE BEDSIDE SHIFT REPORT TO ONCOMING NURSE. CALL LIGHT WITHIN REACH. PATIENT IN BED. HOURLY ROUNDING PERFORMED. DAUGHTER AT BEDSIDE
[2020-01-05] MEDS: INSULIN LISPRO 100 UNIT/1 ML 3ML VIAL SQ SCH ×4 (07:30→21:45)
[2020-01-05] MEDS: HEPARIN 25,000 UNIT 700 UNIT in DEXTROSE 5% 250ML 250 ML IV SCH (09:00)
[2020-01-05] MEDS: PANTOPRAZOLE SOD 40 MG TABEC PO SCH ×2 (09:08→21:44)
[2020-01-05] MEDS: DULOXETINE HCL 30 MG DELAYED RELEASE PO SCH (09:08)
[2020-01-05] MEDS: METOPROLOL SUCCINATE 25 MG TAB XL PO SCH ×2 (09:09→17:01)
--- NOTE | 2020-01-05 09:43 | Progress Note ---
DATE: 01/05/2020 SUBJECTIVE: Ms. Gamboa is a 74-year-old female with history of cardiac pacemaker, atrial fibrillation, aortic valve replacement, diabetes, history of stroke, hypertension, hyperlipidemia, and depression, came to the emergency room with severe anemia, had EGD and colonoscopy done and small bowel series. No clear source of bleeding was found. She required blood transfusion several times. She has a high risk for not being anticoagulated, so at present time, she is on heparin and Coumadin. We are awaiting for the INR to be therapeutic, so we can discharge her home. PHYSICAL EXAMINATION: GENERAL: She is awake and alert. VITAL SIGNS: Temperature is 97.8, blood pressure 129/78. HEART: Irregularly irregular. LUNGS: Clear to auscultation. ABDOMEN: Soft. LABORATORY DATA: On the blood work, INR today 1.90. COVID test is negative. Hemoglobin 8.4, hematocrit 27.2. Glucose 111, potassium 5.0, creatinine 0.84. ASSESSMENT: 1. Hypovolemic shock, resolved. 2. Severe anemia due to blood loss, improving. 3. History of atrial fibrillation. 4. Presence of permanent pacemaker. 5. Aortic valve replacement. 6. Diabetes type 2. 7. Hypertension. 8. Hyperlipidemia. 9. History of cerebrovascular accident. 10. Depression. PLAN: At the present time is to continue ADA diet, sliding scale with insulin. Continue IV iron. Continue heparin drip. Continue Coumadin. Our target INR is between 2.5 on 3, today 1.90, so hopefully tomorrow INR is therapeutic and we can send her home. All this was discussed in detail with the patient and daughter at bedside. All questions were answered to satisfaction. I spent more than 30 minutes examining patient, reviewing overnight event lab results, and discussing plan of care with them. MD CAMILLE Burgos/MODL /[id number]
[2020-01-05] MEDS: WARFARIN SOD 5 MG TAB PO SCH (17:01)
--- NOTE | 2020-01-05 18:10 | Progress Note ---
DATE: 01/05/2020 Cardiology Progress Note SUBJECTIVE: Denies any new complaints. Denies any bleeding, chest pain, or shortness of breath on telemetry paced rhythm. OBJECTIVE: GENERAL: In no acute distress. Alert. NECK: No JVD. CHEST: Clear to auscultation. CARDIOVASCULAR: Regular rate and rhythm. [place] valve opening and closure sounds. Trace murmur. No S3. No S4. ABDOMEN: Soft. EXTREMITIES: No edema. MEDICATIONS: Cardiovascular medications have been reviewed, on: 1. Heparin bridge. 2. Warfarin 10 mg daily. 3. Atorvastatin 20 mg at bedtime. STUDIES: Reviewed. Her hemoglobin is 8.4, white blood cells 4.1, platelets 109. INR 1.9 trending up, PTT 73, creatinine 0.8. ASSESSMENT AND PLAN: A 74-year-old woman with mechanical mitral valve prosthesis, transcatheter aortic valve bioprosthesis, atrial fibrillation and history of cerebrovascular accident, diabetes, hypertension, dyslipidemia, chronic systolic heart failure, and coronary artery disease. No recurrent GI bleed observed. H and H remain stable. Continue heparin bridge and anticoagulation. Target INR 2.5 to 3. Continue rest of cardiovascular medications. As outpatient, if no recurrent bleeding, can consider with her Cardiology's resumption of aspirin. Chris Valencia MD AFV/CARLOSL /[id number]
--- NOTE | 2020-01-05 19:10 | NUR ---
RECEIVED REPORT FROM PREVIOUS NURSE. CALL LIGHT WITHIN REACH. PATIENT IN BED. Addendum: 01/05/20 at 2318 by Ambika Oakes RN DAUGHTER AT [facility]
[2020-01-05] MEDS: TRAZODONE HCL 50 MG TAB PO SCH (21:44)
[2020-01-05] MEDS: ATORVASTATIN 20 MG TAB PO SCH (21:44)
[2020-01-05] MEDS: INSULIN GLARGINE 100 UNITS/ML VIAL SQ SCH (21:45)
[2020-01-06] VITALS (8 sets, daily range): BP systolic 114–137; BP diastolic 65–88
--- NOTE | 2020-01-06 07:00 | NUR ---
GAVE BEDSIDE SHIFT REPORT TO ONCOMING NURSE. CALL LIGHT WITHIN REACH. PATIENT IN BED. HOURLY ROUNDING PERFORMED. DAUGHTER AT BEDSIDE
[2020-01-06] MEDS: INSULIN LISPRO 100 UNIT/1 ML 3ML VIAL SQ SCH ×4 (07:30→21:30)
[2020-01-06] MEDS: HEPARIN 25,000 UNIT 700 UNIT in DEXTROSE 5% 250ML 250 ML IV SCH (08:09)
[2020-01-06 09:07] LABS: HEMATOCRIT 28.2 % (34.2-44.1); HEMOGLOBIN 8.4 g/dL (12.0-16.0); MEAN CORPUSCULAR HEMOGLOBIN 25.5 pg (28-32); MEAN CORPUSCULAR HGB CONC 29.8 g/dL (31-35); MEAN CORPUSCULAR VOLUME 85.5 fL (81-99); PLATELET COUNT 112 x10e3/uL (140-360); RED CELL DISTRIBUTION WIDTH 18.1 % (11.7-14.4)
[2020-01-06] MEDS: PANTOPRAZOLE SOD 40 MG TABEC PO SCH ×2 (09:15→21:30)
[2020-01-06] MEDS: DULOXETINE HCL 30 MG DELAYED RELEASE PO SCH (09:15)
[2020-01-06] MEDS: METOPROLOL SUCCINATE 25 MG TAB XL PO SCH ×2 (09:16→16:53)
[2020-01-06 09:30] LABS: INR 2.14; PROTHROMBIN TIME 25.3 seconds (11.9-14.5)
--- NOTE | 2020-01-06 09:47 | Discharge Summary ---
HISTORY: Ms. Gamboa is a 74-year-old female with history of AFib, aortic valve replacement, diabetes, history of stroke, cardiac pacemaker, hypertension, hyperlipidemia, and depression, came to the emergency room with anemia. She had an EGD, colonoscopy and small bowel test for bleeding, no source was found. She required blood transfusions several times. Due to all her medical conditions, she needs to be anticoagulated at the present time. She is on heparin and Coumadin. If INR today is therapeutic, she may be able to go home, as well if hemoglobin and hematocrit are stable. PHYSICAL EXAMINATION: GENERAL: She is awake and alert. VITAL SIGNS: Temperature is 98.1, blood pressure 114/68. HEART: Irregularly irregular. LUNGS: Clear to auscultation. ABDOMEN: Soft. LABORATORY DATA: On the blood work yesterday, white count 419, hemoglobin 8.4, hematocrit 27.2. Blood sugar 231. INR and CBC from today is still pending, but if hemoglobin is stable and INR is therapeutic, she may be able to go home today. DISCHARGE DIAGNOSES: 1. Hypovolemic shock, resolved. 2. Severe anemia due to GI bleed. 3. History of atrial fibrillation. 4. Presence of permanent pacemaker. 5. Aortic valve replacement. 6. Diabetes type 2 with hyperglycemia. 7. Hypertension. 8. Hyperlipidemia. 9. History of cerebrovascular accident. 10. Depression. PLAN: At present time, if INR is therapeutic and CBC is stable, the patient is going to be able to go home on Coumadin. Consider to start aspirin. If no recurrent bleeding, continue other home medications and follow up with me in one week. All this was discussed with the patient and daughter at bedside. All questions were answered to satisfaction. Please see home medication reconciliation list. I spent more than 30 minutes examining patient, reviewing overnight event lab results, and discussing plan of care with them. MD CAMILLE Burgos/GLENN /[id number]
[2020-01-06 12:08] LABS: ANISOCYTOSIS MODERATE; ELLIPTOCYTE, RBC SLIGHT; HYPOCHROMASIA SLIGHT; PLATELET MORPHOLOGY COMMENT NORMAL; RBC MORPHOLOGY COMMENT ABNORMAL; SCHISTOCYTES RARE
[2020-01-06 12:09] LABS: BURR CELLS SLIGHT; OVALOCYTES FEW; PLATELET ESTIMATE SLIGHTLY DECREASED
[2020-01-06] MEDS: WARFARIN SOD 5 MG TAB PO SCH (16:52)
--- NOTE | 2020-01-06 17:43 | NUR ---
Nutrition Screen Note RD Recommendation for Physician: - Recommend adding 1800 ADA to diet Plan of Care: RD following, monitoring for tolerance and adequacy Nutrition reason for involvement: follow up Primary Diagnose(s): anemia PMH: Afib, pacemaker, CVA, HTN, HLD Ht: 64 in Wt: 120 lb BMI: 20.6 kg/m2 IBW: [address] Assessment: 01/05: Follow up. Chart reviewed. Pt has been consuming 50-100% of meals the past 3 days per documentation. Will continue to monitor. 12/29: 74 YOF admitted for anemia, evaluated today per LOS. Pt with no wt loss or poor po [employer]. Pt eating well, 75-100% of meals. No GI distress. Chart reviewed. Labs and meds reviewed. Will continue to monitor. Current Diet: GI Soft Malnutrition Evaluation (12/30/19) The patient does not meet criteria for a specified degree of malnutrition at this time. Will re-evaluate at follow-up as appropriate. Diet Education Needs Assessment: RD is available for diet education as needed Diet tolerance: tolerating po Nutrition Care Level: low Signed: Leonie Sosa, RD, LD
--- NOTE | 2020-01-06 18:04 | NUR ---
PTT 104. heparin stopped for 30 min and restarted at 450u/hr. heparin was lowered bu 150u/hr per protocol. PTT to be drawn in 6 hours.
--- NOTE | 2020-01-06 18:15 | Progress Note ---
DATE: 01/06/2020 Cardiology Progress Note. SUBJECTIVE: Denies chest pain, shortness of breath, or bleeding. OBJECTIVE: VITAL SIGNS: Temperature 98.2, heart rate 64, respiratory rate 16, blood pressure 132/70, O2 saturation 99% on room air. GENERAL: No acute distress and alert. NECK: No JVD. CHEST: Clear to auscultation. CARDIOVASCULAR: Regular rate and rhythm. Normal valve opening and closure sounds. Systolic murmur. No S3 or S4. ABDOMEN: Soft. Bowel sounds positive. EXTREMITIES: No edema. CARDIOVASCULAR MEDICATIONS: Reviewed. Metoprolol succinate 25 mg b.i.d., warfarin 10 mg daily, heparin IV drip for bridge, atorvastatin 20 mg at bedtime, and furosemide 20 mg at bedtime. STUDIES: Reviewed, white blood cells 4.1, hemoglobin 8.4, platelets 112, INR 2.1, and glucose 144. ASSESSMENT AND PLAN: 1. A 74-year-old woman presents with mechanical aortic valve bioprosthesis, atrial fibrillation, history of stroke, hypertension, diabetes, dyslipidemia, coronary artery disease, chronic systolic heart failure. 2. Status post GI bleed and hypovolemic shock, now with stable H and H and INR trending up. INR follow up in one week. Target INR 2.5 to 3, consider adding aspirin as outpatient depending on how patient continues to respond. Continue rest of cardiovascular medications. MD MADI De Los Santos/GLENN /[id number]
[2020-01-06] MEDS: ATORVASTATIN 20 MG TAB PO SCH (21:30)
[2020-01-06] MEDS: INSULIN GLARGINE 100 UNITS/ML VIAL SQ SCH (21:30)
[2020-01-06] MEDS: TRAZODONE HCL 50 MG TAB PO SCH (21:30)
--- NOTE | 2020-01-06 21:30 | NUR ---
PATIENT RESTING IN BED IN STABLE CONDITION, NO SIGNS OF DISTRESS NOTED. FAMILY MEMBER IS AT BEDSIDE AND IV HEPARIN IS RUNNING AT ORDERED RATE. PATIENT VOICES NO PAIN AT THIS TIME. BED IS IN LOWEST POSITION, BOTH SIDE RAILS ARE UP, CALL LIGHT IS WITHIN EASY REACH, WILL CONTINUE TO MONITOR.
[2020-01-06] MEDS ORDERED: CYANOCOBALAMIN INJ 1,000 MCG/ML VIAL IM ONE (22:45)
[2020-01-07] VITALS: BP 127/63
--- NOTE | 2020-01-07 01:43 | NUR ---
PTT 87.9, HEPARIN LOWERED BY 100 UNITS PER PROTOCOL.
[2020-01-07 04:00] VITALS: BP 121/74
[2020-01-07] MEDS: HEPARIN 25,000 UNIT 700 UNIT in DEXTROSE 5% 250ML 250 ML IV SCH (06:30)
[2020-01-07 06:40] LABS: INR 2.33; PROTHROMBIN TIME 27.1 seconds (11.9-14.5)
[2020-01-07 06:42] LABS: PARTIAL THROMBOPLASTIN TIME 81.3 seconds (23.8-35.5)
[2020-01-07] MEDS: INSULIN LISPRO 100 UNIT/1 ML 3ML VIAL SQ SCH (07:30)
[2020-01-07 08:00] VITALS: BP 129/57
[2020-01-07 08:39] VITALS: BP 129/57
[2020-01-07] MEDS ORDERED: CYANOCOBALAMIN INJ 1,000 MCG/ML VIAL IM SCH (09:00)
[2020-01-07] MEDS: PANTOPRAZOLE SOD 40 MG TABEC PO SCH (09:13)
[2020-01-07] MEDS: DULOXETINE HCL 30 MG DELAYED RELEASE PO SCH (09:13)
[2020-01-07] MEDS: METOPROLOL SUCCINATE 25 MG TAB XL PO SCH (09:13)
--- NOTE | 2020-01-07 09:14 | Discharge Summary ---
HISTORY: Ms. Gamboa is a 74-year-old female with history of AFib, aortic valve replacement, diabetes, stroke, cardiac pacemaker, hypertension, hyperlipidemia, depression, came to the emergency room because of severe anemia, had EGD, colonoscopy, and small bowel series done. No clear source of bleeding was found. She was restarted on heparin drip and Coumadin. At the present time. INR is 2.33, so the plan is to discharge her home today and follow up with her on Saturday to repeat PT/INR. PHYSICAL EXAMINATION: GENERAL: She is awake and alert. VITAL SIGNS: Temperature is 97.9, blood pressure is 121/74. HEART: Irregularly irregular. LUNGS: Clear to auscultation. ABDOMEN: Soft. LABORATORY DATA: On the blood work; coronavirus negative. Glucose 76. Hemoglobin 8.4, hematocrit 28.2. INR today is 2.33. DISCHARGE DIAGNOSES: 1. Status post hypovolemic shock. 2. Severe anemia due to gastrointestinal bleed. 3. History of atrial fibrillation. 4. Presence of permanent pacemaker. 5. Aortic valve replacement. 6. Diabetes type 2 with hyperglycemia. 7. Hypertension. 8. Hyperlipidemia. 9. History of cerebrovascular accident. 10. Depression. PLAN: At the present time is to discharge the patient home. We are going to put her on Coumadin 5 mg daily. She needs to come on Saturday to have her INR rechecked as well as her CBC. 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 Continue all other medications. All this was discussed in detail with the patient and daughter at bedside. All questions were answered to satisfaction. Please see home medication reconciliation list. MD CAMILLE Burgos/MODL /[id number]
[2020-01-07] MEDS ORDERED: COUMADIN5 MG PO (09:41)
--- NOTE | 2020-01-07 12:04 | Progress Note ---
DATE: 01/07/2020 Cardiology Progress Note SUBJECTIVE: Ms. Gamboa denies any chest pain or shortness of breath. OBJECTIVE: VITAL SIGNS: Temperature 97.9, heart rate 60, blood pressure 129/57, respiratory rate 16, and O2 saturation 97%. GENERAL: In no acute distress, alert. NECK: No JVD. CHEST: Clear to auscultation. CARDIOVASCULAR: Regular rate and rhythm. [place] valve opening and closure sounds. No S3 or S4. Systolic murmur. ABDOMEN: Soft. Bowel sounds positive. EXTREMITIES: Warm extremities. No edema. CARDIOVASCULAR MEDICATIONS: Reviewed. Metoprolol succinate 25 mg b.i.d., atorvastatin 20 mg at bedtime, and warfarin 10 mg daily. STUDIES: Reviewed. Potassium 5, creatinine 0.8, and glucose 153. White blood cells 4, hemoglobin 8.4, and platelets 112. INR 2.3. AST 22 and ALT 15. ASSESSMENT AND PLAN: This is a 74-year-old woman with gastrointestinal bleed and anemia in the setting of mechanical mitral valve, bioprosthetic aortic valve, atrial fibrillation, history of stroke, diabetes, and hypertension. RECOMMENDATIONS: Continue current cardiovascular medications. Continue anticoagulation for target INR 2.5 to 3. Outpatient followup with INR in one week. If remained stable over the course of the following month with no recurrent GI bleed, consider adding aspirin 325 mg daily as an outpatient. Continue otherwise rest of cardiovascular medications. MD MADI De Los Santos/GLENN /[id number]
== END 2020-01-07 10:40 | disposition home or self-care (01) | DRG 377 ==
LOC: FSED 15:00 → ERHOLD 17:11 → IMCU 12-25 03:25 → MED/SURG 12-27 11:30
PROVIDERS: ADMIT Internal Medicine; ATTEND Internal Medicine
PROC: 30230K1 Transfusion of Nonautologous Frozen Plasma into Peripheral Vein, Open Approach (ICD-10-PCS; 2019-12-24)
PROC: 30230N1 Transfusion of Nonautologous Red Blood Cells into Peripheral Vein, Open Approach (ICD-10-PCS; 2019-12-24)
PROC: 30230K1 Transfusion of Nonautologous Frozen Plasma into Peripheral Vein, Open Approach (ICD-10-PCS; principal; 2019-12-25)
PROC: 30233K1 Transfusion of Nonautologous Frozen Plasma into Peripheral Vein, Percutaneous Approach (ICD-10-PCS; 2019-12-25)
PROC: 0D598ZZ Destruction of Duodenum, Via Natural or Artificial Opening Endoscopic (ICD-10-PCS; 2019-12-26)
PROC: 0DB68ZX Excision of Stomach, Via Natural or Artificial Opening Endoscopic, Diagnostic (ICD-10-PCS; 2019-12-26)
PROC: 0DBK8ZX Excision of Ascending Colon, Via Natural or Artificial Opening Endoscopic, Diagnostic (ICD-10-PCS; 2019-12-28)
PROC: 0DBH8ZX Excision of Cecum, Via Natural or Artificial Opening Endoscopic, Diagnostic (ICD-10-PCS; 2019-12-28)
PROC: 30230N1 Transfusion of Nonautologous Red Blood Cells into Peripheral Vein, Open Approach (ICD-10-PCS; 2019-12-31)
DX: K55.21 Angiodysplasia of colon with hemorrhage (principal); R57.1 Hypovolemic shock; D62 Acute posthemorrhagic anemia; I50.22 Chronic systolic (congestive) heart failure; I48.20 Chronic atrial fibrillation, unspecified; T45.515A Adverse effect of anticoagulants, initial encounter; E11.65 Type 2 diabetes mellitus with hyperglycemia; I11.0 Hypertensive heart disease with heart failure; Z79.01 Long term (current) use of anticoagulants; E78.5 Hyperlipidemia, unspecified; Z95.810 Presence of automatic (implantable) cardiac defibrillator; Z90.49 Acquired absence of other specified parts of digestive tract; Z95.2 Presence of prosthetic heart valve; F32.9 Major depressive disorder, single episode, unspecified; Z11.59 Encounter for screening for other viral diseases; I69.334 Monoplegia of upper limb following cerebral infarction affecting left non-dominant side; I25.10 Atherosclerotic heart disease of native coronary artery without angina pectoris; K20.9 Esophagitis, unspecified; K44.9 Diaphragmatic hernia without obstruction or gangrene; K29.70 Gastritis, unspecified, without bleeding; K63.5 Polyp of colon; K57.30 Diverticulosis of large intestine without perforation or abscess without bleeding; K64.8 Other hemorrhoids; Z79.82 Long term (current) use of aspirin; Z79.4 Long term (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
CPT/HCPCS: 36415; 43239; 45380; 78278; 80048; 80053; 81003; 82553; 82607; 82728; 82746; 82948; 83540; 84466; 84484; 85007; 85014; 85018; 85025; 85027; 85045; 85379; 85610; 85730; 86850; 86900; 86920; 88305; 88312; 93005; 96361; 96366; 96374; 96375; 96376; 99284; A9512; J0696; J1200; J1644; J1815; J1940; J2001; J2405; J2765; J3420; J3430; J7030; J7050; P9016; P9017; U0002

== ENCOUNTER → 2020-11-03 | Outpatient (CLI) | payer MEDICARE ==
[2020-11-01 16:03] LABS: BASOPHILS % 0.4 % (0.0-1.0); EOSINOPHILS # (AUTO) 0.2 (0.0-0.4); EOSINOPHILS % 3.9 % (0.0-6.0); HEMATOCRIT 27.9 % (34.2-44.1); HEMOGLOBIN 8.5 g/dL (12.0-16.0); LYMPHOCYTES # (AUTO) 1.3 (1.0-3.2); LYMPHOCYTES % 25.9 % (18.0-39.1); MEAN CORPUSCULAR HEMOGLOBIN 25.1 pg (28-32); MEAN CORPUSCULAR HGB CONC 30.5 g/dL (31-35); MEAN CORPUSCULAR VOLUME 82.3 fL (81-99); MONOCYTES # (AUTO) 0.4 (0.2-0.8); NEUTROPHILS % 61.4 % (38.7-80.0); PLATELET COUNT 156 x10e3/uL (140-360); RED BLOOD COUNT 3.39 x10e6/uL (3.6-5.1); RED CELL DISTRIBUTION WIDTH 16.2 % (11.7-14.4)
[~2020-11-03] MED LIST changes: +ASPIRIN CHEW81 MG PO; +CALCET TABLET1 EACH; +COUMADIN5 MG PO; +COUMADIN7.5 MG PO; +CYMBALTA20 MG PO; +DEXTROSE 5% 250ML 250 ML IV ONE; +DIGOXIN250 MCG PO; +LANTUS 3ML100 UNITS/ SC; +LASIX40 MG PO; +LEXAPRO10 MG PO; +LIPITOR20 MG PO; +LOSARTAN POTASS25 MG PO; +METFORMIN HCL500 M2 PO; +METOPROLOL SUCC25 MG PO; +NITROGLYCERIN0.4 MG SL; +OMEPRAZOLE40 MG PO; +TRAVATAN Z5 ML OP; +TRAZODONE HCL50 MG PO; +VIT D3 PO; +WARFARIN SODIUM2 MG PO; +ZESTRIL10 MG PO
[2020-11-03 07:07] LABS: INR 2.53
[2020-11-03 07:08] LABS: PARTIAL THROMBOPLASTIN TIME 50.7 seconds (23.8-35.5)
== END ==
LOC: OR 06:58 → EDSTATUS 08:00
PROVIDERS: ATTEND Internal Medicine Gastroenterology
DX: D64.9 Anemia, unspecified (principal); K92.1 Melena; Z53.8 Procedure and treatment not carried out for other reasons; Z01.810 Encounter for preprocedural cardiovascular examination; Z01.812 Encounter for preprocedural laboratory examination; Z20.822 Contact with and (suspected) exposure to COVID-19
CPT/HCPCS: 36415 ×2; 82948; 85025; 85610; 85730; 93005; J7070; U0002

== ENCOUNTER → 2021-07-26 | Day surgery (SDC) | payer MEDICARE ==
[2021-07-25 11:28] LABS: BASOPHILS % 0.8 % (0.0-1.0); EOSINOPHILS # (AUTO) 0.1 (0.0-0.4); EOSINOPHILS % 2.4 % (0.0-6.0); HEMATOCRIT 32.7 % (34.2-44.1); HEMOGLOBIN 10.1 g/dL (12.0-16.0); LYMPHOCYTES # (AUTO) 1.3 (1.0-3.2); LYMPHOCYTES % 26.1 % (18.0-39.1); MEAN CORPUSCULAR HEMOGLOBIN 27.1 pg (28-32); MEAN CORPUSCULAR HGB CONC 30.9 g/dL (31-35); MEAN CORPUSCULAR VOLUME 87.7 fL (81-99); MONOCYTES # (AUTO) 0.4 (0.2-0.8); MONOCYTES % 7.6 % (4.4-11.3); NEUTROPHILS # (AUTO) 3.1 (2.1-6.9); NEUTROPHILS % 62.7 % (38.7-80.0); PLATELET COUNT 129 x10e3/uL (140-360); RED BLOOD COUNT 3.73 x10e6/uL (3.6-5.1); RED CELL DISTRIBUTION WIDTH 14.6 % (11.7-14.4)
[~2021-07-26] MED LIST changes: +EPHEDRINE SULFATE INJ 50 MG/ML VIAL ONE; +FENTANYL CITRATE/PF 100MCG/2 ML INJ ONE; +IRON INFUSION IV; +LIDOCAINE HCL 2% LOCAL INJ 5 ML SDV VIAL INJ ONE; +LOVENOX30 MG/0.3 SC; +MIDAZOLAM HCL 2 MG/2 ML VIAL ONE; +PROPOFOL IV EMULSION 10 MG/ML 20 ML VIAL ONE
[2021-07-26 10:20] LABS: INR 1.11; PROTHROMBIN TIME 15.3 seconds (11.9-14.5)
[2021-07-26 12:00] VITALS: BP 134/74
[2021-07-29 05:12] LABS: ENDOMYSIAL ANTIBODIES, IGA Negative (Negative)
== END | disposition home or self-care (01) ==
LOC: OR 09:36
PROVIDERS: ATTEND Internal Medicine Gastroenterology
DX: D64.89 Other specified anemias (principal); K31.7 Polyp of stomach and duodenum; K29.60 Other gastritis without bleeding; K20.90 Esophagitis, unspecified without bleeding; K31.89 Other diseases of stomach and duodenum; Z71.3 Dietary counseling and surveillance; E11.9 Type 2 diabetes mellitus without complications; I25.810 Atherosclerosis of coronary artery bypass graft(s) without angina pectoris; I10 Essential (primary) hypertension; I48.91 Unspecified atrial fibrillation; E78.00 Pure hypercholesterolemia, unspecified; F32.A Depression, unspecified; Z01.810 Encounter for preprocedural cardiovascular examination; Z01.812 Encounter for preprocedural laboratory examination; Z20.822 Contact with and (suspected) exposure to COVID-19; Z79.01 Long term (current) use of anticoagulants; Z79.4 Long term (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; Z79.899 Other long term (current) drug therapy; Z95.1 Presence of aortocoronary bypass graft; Z95.0 Presence of cardiac pacemaker; Z86.73 Personal history of transient ischemic attack (TIA), and cerebral infarction without residual deficits
CPT/HCPCS: 36415 ×2; 43239; 82784; 82948; 83516; 85025; 85610; 85730; 86256; 93005; C9113; J2001; J2250; J2704; J3010; J7070; U0002

== ENCOUNTER → 2021-08-04 | Outpatient (CLI) | payer MEDICARE ==
[~2021-08-04] MED LIST changes: -DEXTROSE 5% 250ML 250 ML IV ONE; -EPHEDRINE SULFATE INJ 50 MG/ML VIAL ONE; -FENTANYL CITRATE/PF 100MCG/2 ML INJ ONE; -LIDOCAINE HCL 2% LOCAL INJ 5 ML SDV VIAL INJ ONE; -MIDAZOLAM HCL 2 MG/2 ML VIAL ONE; -PROPOFOL IV EMULSION 10 MG/ML 20 ML VIAL ONE
== END ==
LOC: CT 08:59
PROVIDERS: ATTEND Internal Medicine
DX: R10.32 Left lower quadrant pain (principal); I51.7 Cardiomegaly; K76.9 Liver disease, unspecified; N28.1 Cyst of kidney, acquired
CPT/HCPCS: 74176

== ENCOUNTER → 2021-09-05 | Outpatient (CLI) | payer MEDICARE | LOC: US 08:59 | PROVIDERS: ATTEND Internal Medicine Gastroenterology | DX: K76.89 Other specified diseases of liver (principal) | CPT/HCPCS: 76705 ==

== ENCOUNTER → 2021-09-05 | Outpatient (CLI) | payer MEDICARE | LOC: US 08:53 | PROVIDERS: ATTEND Internal Medicine | DX: N28.1 Cyst of kidney, acquired (principal) | CPT/HCPCS: 76770 ==

== ENCOUNTER 2024-08-16 18:18 | Inpatient (IN) | payer MEDICARE, OTHER ==
[~2024-08-16] VITALS: Ht 160 cm; Wt 49.9 kg
[~2024-08-16 18:18] MED LIST changes: -CALCET TABLET1 EACH; +CALCET TABLET1 EACH PO
[2024-08-16] MEDS ORDERED: IOPAMIDOL 370 MG/ML 100 ML INFUS..BTL INJ ONE (19:03)
[2024-08-16] MEDS: Morphine 4mg INJECTION 4 MG/ML INJ IV ONE (19:41)
[2024-08-16] MEDS: DEXTROSE 50% SYRINGE 50 ML IV STA (21:41)
[2024-08-16] MEDS: SODIUM CHLORIDE 0.9% 1000ML 500 ML IV ONE (21:45)
[2024-08-16] MEDS ORDERED: ONDANSETRON HCL INJ 2MG/ML 2ML 2 MG/ML VIAL IV PRN (21:45)
[2024-08-16] MEDS: SOD POLYSTYRENE SULFONATE SUSP 15 GM/60 ML BTL PO ONE (23:20)
[2024-08-16] MEDS: PHYTONADIONE 10 MG/ML AMP SQ ONE (23:20)
[2024-08-16 23:34] VITALS: PULSE 71; RESP 16; TEMP 98.6
[2024-08-17] VITALS (13 sets, daily range): BP systolic 128–168; BP diastolic 55–79; PULSE 66–97; RESP 18–20; TEMP 97.9–98.7; O2SAT 96–100
[2024-08-17] MEDS: Morphine 4mg INJECTION 4 MG/ML INJ IV PRN (06:42)
[2024-08-17] MEDS ORDERED: LEVOCETIRIZINE D5 MG PO (07:19)
[2024-08-17] MEDS ORDERED: AMOXICILLIN500 MG PO (07:19)
[2024-08-17] MEDS ORDERED: LISINOPRIL20 MG PO (07:19)
[2024-08-17] MEDS ORDERED: HUMULIN R100 UNIT/2 INJ (07:25)
[2024-08-17] MEDS ORDERED: NEURONTIN300 MG PO (07:25)
[2024-08-17] MEDS ORDERED: JANUVIA50 MG PO (07:25)
[2024-08-17] MEDS ORDERED: GLIPIZIDE5 MG PO (07:25)
[2024-08-17] MEDS ORDERED: ALLOPURINOL100 MG PO (07:25)
[2024-08-17] MEDS ORDERED: LEVOTHYROXINE50 MCG PO (07:25)
[2024-08-17] MEDS ORDERED: CORICIDIN HBP355 M3 PO (07:27)
[2024-08-17] MEDS: INSULIN REGULAR, HUMAN 100 UNIT/1 ML IV ONE (08:04)
[2024-08-17 16:11] LABS: BASOPHILS % 0.5 % (0.0-1.0); EOSINOPHILS # (AUTO) 0.1 (0.0-0.4); EOSINOPHILS % 2.3 % (0.0-6.0); HEMATOCRIT 24.4 % (34.2-44.1); HEMOGLOBIN 7.6 g/dL (12.0-16.0); LYMPHOCYTES # (AUTO) 1.1 (1.0-3.2); LYMPHOCYTES % 20.2 % (18.0-39.1); MEAN CORPUSCULAR HEMOGLOBIN 26.8 pg (28-32); MEAN CORPUSCULAR HGB CONC 31.1 g/dL (31-35); MEAN CORPUSCULAR VOLUME 85.9 fL (81-99); MONOCYTES # (AUTO) 0.4 (0.2-0.8); MONOCYTES % 7.2 % (4.4-11.3); NEUTROPHILS # (AUTO) 3.8 (2.1-6.9); NEUTROPHILS % 69.1 % (38.7-80.0); PLATELET COUNT 139 x10e3/uL (140-360); RED BLOOD COUNT 2.84 x10e6/uL (3.6-5.1); RED CELL DISTRIBUTION WIDTH 15.9 % (11.7-14.4); WHITE BLOOD COUNT 5.55 x10e3/uL (4.8-10.8)
[2024-08-17 16:31] LABS: INR 3.62; PROTHROMBIN TIME 37.7 seconds (11.9-14.5)
[2024-08-17 16:44] LABS: ANION GAP 13.9 mmol/L (8-16); CALCIUM 8.6 mg/dL (8.4-10.2); CREATININE, SERUM 1.36 mg/dL (0.57-1.11); MAGNESIUM 2.2 MG/DL (1.3-2.1); PHOSPHORUS 3.7 MG/DL (2.3-4.7); POTASSIUM 4.9 mmol/L (3.5-5.1)
[2024-08-17] MEDS ORDERED: WARFARIN SODIU2.5 MG PO (16:57)
[2024-08-17] MEDS ORDERED: GLIPIZIDE ER5 MG PO (16:57)
[2024-08-17] MEDS ORDERED: DEXTROSE 50% SYRINGE 50 ML IV PRN (18:15)
[2024-08-17] MEDS ORDERED: HYDRALAZINE HCL 20 MG/ML VIAL IV PRN (18:30)
[2024-08-17] MEDS: AMOXICILLIN 250 MG CAP PO SCH (20:51)
[2024-08-17] MEDS: LORATADINE 10 MG TAB PO SCH (20:55)
[2024-08-17] MEDS: TRAZODONE HCL 50 MG TAB PO SCH (20:55)
[2024-08-17] MEDS: INSULIN LISPRO 100 UNIT/1 ML 3ML VIAL SQ SCH (21:06)
[2024-08-17] MEDS: INSULIN GLARGINE 100 UNITS/ML VIAL SQ SCH (21:07)
[2024-08-17] MEDS: ONDANSETRON HCL INJ 2MG/ML 2ML 2 MG/ML VIAL IV PRN (21:17)
[2024-08-17] MEDS: FUROSEMIDE 40 MG TAB PO SCH (21:18)
[2024-08-17] MEDS: POLYETHYLENE GLYCOL 3350 17 GM PACK PO PRN (21:19)
[2024-08-18] VITALS (10 sets, daily range): BP systolic 96–126; BP diastolic 49–63; PULSE 66–88; RESP 16–18; TEMP 97.3–98.4; O2SAT 92–100
[2024-08-18 05:57] LABS: BASOPHILS % 0.5 % (0.0-1.0); EOSINOPHILS # (AUTO) 0.1 (0.0-0.4); EOSINOPHILS % 2.4 % (0.0-6.0); LYMPHOCYTES % 17.8 % (18.0-39.1); MEAN CORPUSCULAR HEMOGLOBIN 26.4 pg (28-32); MEAN CORPUSCULAR HGB CONC 30.4 g/dL (31-35); MONOCYTES # (AUTO) 0.4 (0.2-0.8); MONOCYTES % 7.2 % (4.4-11.3); NEUTROPHILS # (AUTO) 4.1 (2.1-6.9); NEUTROPHILS % 71.8 % (38.7-80.0); PLATELET COUNT 142 x10e3/uL (140-360); RED BLOOD COUNT 2.76 x10e6/uL (3.6-5.1); RED CELL DISTRIBUTION WIDTH 15.8 % (11.7-14.4); RETICULOCYTE % 1.3 % (0.8-2.2); WHITE BLOOD COUNT 5.72 x10e3/uL (4.8-10.8)
[2024-08-18 06:02] LABS: HEMOGLOBIN 7.3 g/dL (12.0-16.0)
[2024-08-18 06:26] LABS: ANION GAP 13.7 mmol/L (8-16); CALCIUM 8.4 mg/dL (8.4-10.2); CHOL/HDL RATIO 2.2 (3.0-3.6); CREATININE, SERUM 1.3 mg/dL (0.57-1.11); POTASSIUM 4.7 mmol/L (3.5-5.1)
[2024-08-18] MEDS: LEVOTHYROXINE SODIUM 50 MCG TAB PO SCH (06:42)
[2024-08-18 06:50] LABS: FERRITIN 278.22 ng/mL (4.63-204.00); FREE T4 (FREE THYROXINE) 0.99 ng/dL (0.8-1.8); THYROID STIMULATING HORMONE 3.477 uIU/mL (0.350-4.940)
[2024-08-18 07:13] LABS: FOLATE 10.6 ng/mL (7.0-15.4)
[2024-08-18] MEDS: ESCITALOPRAM OXALATE 10 MG TAB PO SCH (09:13)
[2024-08-18] MEDS: DOCUSATE SODIUM 100 MG CAP PO SCH ×2 (09:13→22:11)
[2024-08-18] MEDS: SODIUM CHLORIDE 0.9% 1000ML 1,000 ML IV SCH (15:54)
[2024-08-18] MEDS ORDERED: BISACODYL 10 MG SUPP PR PRN (20:30)
[2024-08-18] MEDS: BISACODYL 10 MG SUPP PR ONE (22:11)
[2024-08-18] MEDS: SENNA-S TABLET PO SCH (22:11)
[2024-08-19] VITALS (12 sets, daily range): BP systolic 97–119; BP diastolic 41–60; PULSE 79–87; RESP 16–22; TEMP 97.5–98.6; O2SAT 95–100
[2024-08-19 06:41] LABS: BASOPHILS % 0.7 % (0.0-1.0); EOSINOPHILS # (AUTO) 0.1 (0.0-0.4); EOSINOPHILS % 2.2 % (0.0-6.0); HEMATOCRIT 23.3 % (34.2-44.1); LYMPHOCYTES # (AUTO) 1.4 (1.0-3.2); LYMPHOCYTES % 23.3 % (18.0-39.1); MEAN CORPUSCULAR HEMOGLOBIN 26.8 pg (28-32); MEAN CORPUSCULAR VOLUME 89.3 fL (81-99); MONOCYTES # (AUTO) 0.5 (0.2-0.8); MONOCYTES % 8.2 % (4.4-11.3); NEUTROPHILS # (AUTO) 3.8 (2.1-6.9); NEUTROPHILS % 64.9 % (38.7-80.0); PLATELET COUNT 151 x10e3/uL (140-360); RED BLOOD COUNT 2.61 x10e6/uL (3.6-5.1); RED CELL DISTRIBUTION WIDTH 15.9 % (11.7-14.4); WHITE BLOOD COUNT 5.88 x10e3/uL (4.8-10.8)
[2024-08-19 07:05] LABS: INR 1.42; PROTHROMBIN TIME 18.1 seconds (11.9-14.5)
[2024-08-19 07:10] LABS: ANION GAP 14.9 mmol/L (8-16); CALCIUM 8.2 mg/dL (8.4-10.2); CREATININE, SERUM 1.44 mg/dL (0.57-1.11); POTASSIUM 4.9 mmol/L (3.5-5.1)
[2024-08-19] MEDS: SODIUM CHLORIDE 0.9% 500ML 500 ML IV ONE ×2 (09:13→09:28)
[2024-08-19] MEDS ORDERED: IOPAMIDOL 370 MG/ML 100 ML INFUS..BTL INJ ONE (13:25)
[2024-08-20] VITALS (10 sets, daily range): BP systolic 93–123; BP diastolic 42–61; PULSE 70–85; RESP 18–20; TEMP 97.6–98.7; O2SAT 95–100
[2024-08-20 06:42] LABS: BASOPHILS % 0.2 % (0.0-1.0); EOSINOPHILS # (AUTO) 0.1 (0.0-0.4); EOSINOPHILS % 3.1 % (0.0-6.0); LYMPHOCYTES % 23.3 % (18.0-39.1); MEAN CORPUSCULAR HEMOGLOBIN 26.9 pg (28-32); MEAN CORPUSCULAR HGB CONC 30.1 g/dL (31-35); MEAN CORPUSCULAR VOLUME 89.3 fL (81-99); MONOCYTES # (AUTO) 0.4 (0.2-0.8); MONOCYTES % 8.9 % (4.4-11.3); NEUTROPHILS # (AUTO) 2.9 (2.1-6.9); NEUTROPHILS % 64.1 % (38.7-80.0); PLATELET COUNT 130 x10e3/uL (140-360); RED BLOOD COUNT 2.34 x10e6/uL (3.6-5.1); RED CELL DISTRIBUTION WIDTH 15.9 % (11.7-14.4); WHITE BLOOD COUNT 4.47 x10e3/uL (4.8-10.8)
[2024-08-20 06:48] LABS: HEMATOCRIT 20.9 % (34.2-44.1); HEMOGLOBIN 6.3 g/dL (12.0-16.0)
[2024-08-20 06:57] LABS: INR 1.29; PROTHROMBIN TIME 16.8 seconds (11.9-14.5)
[2024-08-20 07:03] LABS: ANION GAP 13.9 mmol/L (8-16); CALCIUM 7.8 mg/dL (8.4-10.2); CREATININE, SERUM 1.64 mg/dL (0.57-1.11); POTASSIUM 4.9 mmol/L (3.5-5.1)
[2024-08-20] MEDS: ACETAMINOPHEN 325 MG TAB PO PRN (09:04)
[2024-08-20] MEDS: FUROSEMIDE INJ 10 MG/ML 2 ML VIAL IV ONE (13:59)
[2024-08-20] MEDS: SODIUM CHLORIDE 0.9% 250ML 250 ML IV ONE (14:00)
[2024-08-20] MEDS: FUROSEMIDE INJ 10 MG/ML 4 ML VIAL IV SCH (17:23)
[2024-08-21] VITALS (12 sets, daily range): BP systolic 105–148; BP diastolic 53–85; PULSE 71–89; RESP 16–19; TEMP 97.7–99.3; O2SAT 95–100
[2024-08-21 06:54] LABS: INR 1.28; PROTHROMBIN TIME 16.7 seconds (11.9-14.5)
[2024-08-21 07:02] LABS: ANION GAP 12.7 mmol/L (8-16); CALCIUM 7.8 mg/dL (8.4-10.2); CREATININE, SERUM 1.74 mg/dL (0.57-1.11); POTASSIUM 4.7 mmol/L (3.5-5.1)
[2024-08-21 07:39] LABS: BASOPHILS % 0.5 % (0.0-1.0); EOSINOPHILS # (AUTO) 0.2 (0.0-0.4); EOSINOPHILS % 4.4 % (0.0-6.0); HEMATOCRIT 24.3 % (34.2-44.1); LYMPHOCYTES # (AUTO) 0.8 (1.0-3.2); MEAN CORPUSCULAR HEMOGLOBIN 27.3 pg (28-32); MEAN CORPUSCULAR HGB CONC 31.7 g/dL (31-35); MEAN CORPUSCULAR VOLUME 86.2 fL (81-99); MONOCYTES # (AUTO) 0.4 (0.2-0.8); MONOCYTES % 8.1 % (4.4-11.3); NEUTROPHILS # (AUTO) 2.9 (2.1-6.9); NEUTROPHILS % 67.5 % (38.7-80.0); PLATELET COUNT 127 x10e3/uL (140-360); RED BLOOD COUNT 2.82 x10e6/uL (3.6-5.1); RED CELL DISTRIBUTION WIDTH 17.2 % (11.7-14.4); WHITE BLOOD COUNT 4.31 x10e3/uL (4.8-10.8)
[2024-08-21 07:42] LABS: HEMOGLOBIN 7.7 g/dL (12.0-16.0)
[2024-08-21] MEDS ORDERED: LACTULOSE SYRUP 20 GM/30 ML UDC PO PRN (16:30)
[2024-08-21] MEDS ORDERED: SENNA-S TABLET PO SCH (17:00)
[2024-08-21] MEDS: LACTULOSE SYRUP 20 GM/30 ML UDC PO ONE (17:12)
[2024-08-21] MEDS: SIMETHICONE 80 MG CHEW PO ONE (17:12)
[2024-08-22] VITALS (11 sets, daily range): BP systolic 96–130; BP diastolic 47–76; PULSE 63–83; RESP 18–20; TEMP 97.8–98.3; O2SAT 95–100
[2024-08-22 06:45] LABS: BASOPHILS % 0.4 % (0.0-1.0); EOSINOPHILS # (AUTO) 0.1 (0.0-0.4); EOSINOPHILS % 1.5 % (0.0-6.0); HEMATOCRIT 26.4 % (34.2-44.1); HEMOGLOBIN 8.3 g/dL (12.0-16.0); LYMPHOCYTES # (AUTO) 0.6 (1.0-3.2); LYMPHOCYTES % 10.2 % (18.0-39.1); MEAN CORPUSCULAR HEMOGLOBIN 27.4 pg (28-32); MEAN CORPUSCULAR HGB CONC 31.4 g/dL (31-35); MEAN CORPUSCULAR VOLUME 87.1 fL (81-99); MONOCYTES # (AUTO) 0.5 (0.2-0.8); MONOCYTES % 9.8 % (4.4-11.3); NEUTROPHILS # (AUTO) 4.3 (2.1-6.9); NEUTROPHILS % 77.6 % (38.7-80.0); PLATELET COUNT 128 x10e3/uL (140-360); RED BLOOD COUNT 3.03 x10e6/uL (3.6-5.1); RED CELL DISTRIBUTION WIDTH 17.2 % (11.7-14.4); WHITE BLOOD COUNT 5.51 x10e3/uL (4.8-10.8)
[2024-08-22 07:13] LABS: ANION GAP 13.6 mmol/L (8-16); CALCIUM 8.4 mg/dL (8.4-10.2); CREATININE, SERUM 1.69 mg/dL (0.57-1.11); POTASSIUM 4.6 mmol/L (3.5-5.1)
[2024-08-22] MEDS: SODIUM CHLORIDE 0.9% 250ML 250 ML ONE (12:12)
[2024-08-22] MEDS: SIMETHICONE 80 MG CHEW PO PRN (14:50)
[2024-08-23] VITALS (10 sets, daily range): BP systolic 109–126; BP diastolic 47–68; PULSE 69–82; RESP 18–21; TEMP 98.2–98.8; O2SAT 95–100
[2024-08-23] MEDS: TRAMADOL HCL 50 MG TAB PO PRN (19:19)
[2024-08-23] MEDS: POLYETHYLENE GLYCOL 3350 17 GM PACK PO STA (22:48)
[2024-08-24] VITALS (8 sets, daily range): BP systolic 116–126; BP diastolic 53–60; PULSE 70–79; RESP 17–20; TEMP 97.9–98.6; O2SAT 98–100
[2024-08-24 06:13] LABS: BASOPHILS % 0.5 % (0.0-1.0); EOSINOPHILS # (AUTO) 0.2 (0.0-0.4); EOSINOPHILS % 4.8 % (0.0-6.0); HEMATOCRIT 25.1 % (34.2-44.1); LYMPHOCYTES # (AUTO) 0.8 (1.0-3.2); MEAN CORPUSCULAR HEMOGLOBIN 26.8 pg (28-32); MEAN CORPUSCULAR HGB CONC 31.1 g/dL (31-35); MEAN CORPUSCULAR VOLUME 86.3 fL (81-99); MONOCYTES # (AUTO) 0.3 (0.2-0.8); MONOCYTES % 8.3 % (4.4-11.3); NEUTROPHILS # (AUTO) 2.4 (2.1-6.9); NEUTROPHILS % 63.9 % (38.7-80.0); PLATELET COUNT 134 x10e3/uL (140-360); RED BLOOD COUNT 2.91 x10e6/uL (3.6-5.1); RED CELL DISTRIBUTION WIDTH 17.4 % (11.7-14.4); WHITE BLOOD COUNT 3.73 x10e3/uL (4.8-10.8)
[2024-08-24 06:14] LABS: HEMOGLOBIN 7.8 g/dL (12.0-16.0)
[2024-08-24 06:41] LABS: ALBUMIN 2.7 g/dL (3.5-5.0); ALBUMIN/GLOBULIN RATIO 0.8 (0.8-2.0); ANION GAP 12.7 mmol/L (8-16); BILIRUBIN,TOTAL 0.8 mg/dL (0.2-1.2); CALCIUM 8.4 mg/dL (8.4-10.2); CREATININE, SERUM 1.15 mg/dL (0.57-1.11); POTASSIUM 4.7 mmol/L (3.5-5.1); TOTAL PROTEIN 5.9 g/dL (6.5-8.1)
[2024-08-24] MEDS: POLYETHYLENE GLYCOL 3350 17 GM PACK PO SCH (09:45)
[2024-08-25] VITALS (8 sets, daily range): BP systolic 105–125; BP diastolic 51–69; PULSE 65–78; RESP 16–20; TEMP 97.6–98.2; O2SAT 95–100
[2024-08-25] MEDS: IRON SUCROSE 100 MG in SODIUM CHLORIDE 0.9% 100 ML IV SCH (09:11)
[2024-08-25] MEDS ORDERED: POLYETHYLENE GLYCOL 3350 17 GM PACK PO PRN (16:30)
[2024-08-25] MEDS ORDERED: SENNA-S TABLET PO PRN (16:30)
[2024-08-25] MEDS: DOCUSATE SODIUM 100 MG CAP PO SCH (16:52)
[2024-08-25] MEDS: AMOXICILLIN 250 MG CAP PO SCH (21:10)
[2024-08-26] VITALS (10 sets, daily range): BP systolic 105–129; BP diastolic 51–68; PULSE 65–82; RESP 15–20; TEMP 97.6–99.2; O2SAT 96–100
[2024-08-26 06:07] LABS: ANION GAP 12.5 mmol/L (8-16); CALCIUM 8.4 mg/dL (8.4-10.2); CREATININE, SERUM 0.92 mg/dL (0.57-1.11); POTASSIUM 4.5 mmol/L (3.5-5.1)
[2024-08-26] MEDS: FUROSEMIDE 40 MG TAB PO SCH (09:57)
[2024-08-26] MEDS: ACETAMINOPHEN 325 MG TAB PO PRN (22:01)
[2024-08-26] MEDS: GUAIFENESIN/DEXTROMETHORPHAN LIQD 5 ML UDC PO PRN (23:33)
[2024-08-27 07:14] VITALS: BP 133/51; PULSE 73; RESP 15; TEMP 97.2; O2SAT 93
[2024-08-27 07:49] VITALS: PULSE 78; RESP 20; O2SAT 97
[2024-08-27 08:03] LABS: BASOPHILS % 0.8 % (0.0-1.0); EOSINOPHILS # (AUTO) 0.2 (0.0-0.4); EOSINOPHILS % 4.8 % (0.0-6.0); HEMATOCRIT 26.1 % (34.2-44.1); HEMOGLOBIN 8.1 g/dL (12.0-16.0); LYMPHOCYTES # (AUTO) 1.2 (1.0-3.2); LYMPHOCYTES % 30.2 % (18.0-39.1); MEAN CORPUSCULAR HEMOGLOBIN 26.8 pg (28-32); MEAN CORPUSCULAR VOLUME 86.4 fL (81-99); MONOCYTES # (AUTO) 0.4 (0.2-0.8); MONOCYTES % 10.1 % (4.4-11.3); NEUTROPHILS # (AUTO) 2.1 (2.1-6.9); NEUTROPHILS % 53.6 % (38.7-80.0); PLATELET COUNT 156 x10e3/uL (140-360); RED BLOOD COUNT 3.02 x10e6/uL (3.6-5.1); RED CELL DISTRIBUTION WIDTH 17.5 % (11.7-14.4); WHITE BLOOD COUNT 3.98 x10e3/uL (4.8-10.8)
[2024-08-27 08:19] LABS: INR 1.24; PROTHROMBIN TIME 16.3 seconds (11.9-14.5)
[2024-08-27 08:55] LABS: MAGNESIUM 2.1 MG/DL (1.3-2.1); PHOSPHORUS 3.7 MG/DL (2.3-4.7)
[2024-08-27 08:59] VITALS: BP 133/51; PULSE 73; RESP 15; TEMP 97.2; O2SAT 93
[2024-08-27 11:40] VITALS: BP 118/57; PULSE 72; RESP 16; TEMP 98.1; O2SAT 95
[2024-08-27] MEDS ORDERED: Docusate Sodium PO (12:21)
[2024-08-27] MEDS ORDERED: DULCOLAX SUPP10 MG PO (12:21)
[2024-08-27] MEDS ORDERED: AMOXICILLIN250 MG PO (12:21)
[2024-08-27] MEDS ORDERED: ACETAMINOPHEN-1 EAC4 PO (12:23)
[2024-08-27] MEDS ORDERED: WARFARIN SODIU2.5 MG PO (12:43)
[2024-08-27] MEDS ORDERED: ONDANSETRON HCL 4 MG ORAL DISINTEGRATING TAB PO PRN (13:00)
[2024-08-27] MEDS ORDERED: WARFARIN SOD 2 MG TAB PO SCH (17:00)
== END 2024-08-27 14:48 | disposition home health service (06) | DRG 605 ==
LOC: FSED 18:31 → ERHOLD 22:06 → MED/SURG2 08-17 00:40
PROVIDERS: ADMIT Internal Medicine; ATTEND Internal Medicine
PROC: 30233N1 Transfusion of Nonautologous Red Blood Cells into Peripheral Vein, Percutaneous Approach (ICD-10-PCS; principal; 2024-08-20)
PROC: 30233N1 Transfusion of Nonautologous Red Blood Cells into Peripheral Vein, Percutaneous Approach (ICD-10-PCS; 2024-08-20)
DX: S30.1XXA Contusion of abdominal wall, initial encounter (principal); D68.59 Other primary thrombophilia; I13.0 Hypertensive heart and chronic kidney disease with heart failure and stage 1 through stage 4 chronic kidney disease, or unspecified chronic kidney disease; N17.9 Acute kidney failure, unspecified; I50.32 Chronic diastolic (congestive) heart failure; I38 Endocarditis, valve unspecified; J98.11 Atelectasis; Z68.1 Body mass index [BMI] 19.9 or less, adult; S30.0XXA Contusion of lower back and pelvis, initial encounter; E87.5 Hyperkalemia; I48.0 Paroxysmal atrial fibrillation; Z79.01 Long term (current) use of anticoagulants; E11.22 Type 2 diabetes mellitus with diabetic chronic kidney disease; E11.69 Type 2 diabetes mellitus with other specified complication; N18.30 Chronic kidney disease, stage 3 unspecified; Z79.4 Long term (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; Z79.84 Long term (current) use of oral hypoglycemic drugs; E78.5 Hyperlipidemia, unspecified; K56.41 Fecal impaction; K21.9 Gastro-esophageal reflux disease without esophagitis; E03.9 Hypothyroidism, unspecified; D50.9 Iron deficiency anemia, unspecified; Z71.3 Dietary counseling and surveillance; E87.79 Other fluid overload; R60.0 Localized edema; R11.0 Nausea; T47.3X5A Adverse effect of saline and osmotic laxatives, initial encounter; Y92.230 Patient room in hospital as the place of occurrence of the external cause; F32.A Depression, unspecified; Z95.2 Presence of prosthetic heart valve; X58.XXXA Exposure to other specified factors, initial encounter; Y92.009 Unspecified place in unspecified non-institutional (private) residence as the place of occurrence of the external cause; Z86.73 Personal history of transient ischemic attack (TIA), and cerebral infarction without residual deficits; Z79.2 Long term (current) use of antibiotics; Z79.899 Other long term (current) drug therapy
CPT/HCPCS: 36415; 74018; 74177; 80048; 80053; 80061; 82607; 82728; 82746; 82948; 83036; 83540; 83735; 84100; 84439; 84443; 84466; 85025; 85045; 85610; 86850; 86900; 86920; 93005; 93306; 94799; 99252; 99284; J1756; J1938; J1940; J2270; J2405; J3430; J7030; J7040; J7050; J7799; P9016; Q9967

== ENCOUNTER → 2024-10-05 | Outpatient (REF) | payer MEDICARE ==
[~2024-10-05] MED LIST changes: +ACETAMINOPHEN-1 EAC4 PO; +ALLOPURINOL100 MG PO; +AMOXICILLIN250 MG PO; +AMOXICILLIN500 MG PO; +CORICIDIN HBP355 M3 PO; +DULCOLAX SUPP10 MG PO; +Docusate Sodium PO; +GLIPIZIDE ER5 MG PO; +GLIPIZIDE5 MG PO; +HUMULIN R100 UNIT/2 INJ; +JANUVIA50 MG PO; +LEVOCETIRIZINE D5 MG PO; +LEVOTHYROXINE50 MCG PO; +LISINOPRIL20 MG PO; +NEURONTIN300 MG PO; +WARFARIN SODIU2.5 MG PO
== END ==
LOC: RAD 14:59
PROVIDERS: ATTEND Internal Medicine
DX: R05.9 Cough, unspecified (principal)
CPT/HCPCS: 71046